=== PATIENT | female | born 1945 | race Caucasian/White ===

== ENCOUNTER → 2016-09-01 | Outpatient (CLI) | payer OTHER ==
[~2016-09-01] MED LIST: ACET-1311 PO; AMIO200T4 PO; AMOX875T PO; AMX500 PO; APIX1TAB3 PO; ASPCH81X PO; ATOR-24 PO; AZITTAB PO; BACITRACIN 50000 UNIT VIAL ONE; BISA10SU5 RE; BUPIVACAINE 0.5 % 5 MG/1 ML MPF 30ML VIAL ONE; CARV12.5 PO; CARV12.52 PO; CHOL200010 PO; CRG625 PO; DIGO0.1216 PO; DXY100 PO; FERR1TAB13 PO; FERR325T51 PO; FLUO20CA35 PO; FRS/40 PO; FRS/80 PO; GABA-112 PO; IMDSR30 PO; INSU1INJ SC; ISOS30TA51 PO; LAMO200T PO; LIDOCAINE HCL 1% 20 ML VIAL ONE; LNX125 PO; LSX40 PO; MAGN400T6 PO; MCTP EXT; MCTP TOP; MELA1TAB5 PO; MELATAB2 PO; METO25TA3 PO; MICO2POW8 TOP; MOML PO; NYST80OI TOP; OXYC-57 PO; PENI-82 PO; PHEN1TAB86 PO; POLY335019 PO; POTA10CA28 PO; POTA10TA30 PO; REPA0.5T PO; REPA1TAB42 PO; REPA1TAB5 PO; SENN-61 PO; SENN-65 PO; SIMV20TA2 PO; TRAZ100T29 PO; [UNRECOGNIZED DRUG - SUPPLY]
--- NOTE | 2016-09-01 10:51 | DIAGNOSTIC IMAGING REPORT ---
CHEST 2 VIEWS ROUTINE CLINICAL HISTORY: R06.00 [id number] COMPARISON STUDY: 06/15/2016 FINDINGS: The heart is mildly enlarged. As a left subclavian pacer/defibrillator present. There is mild pulmonary vascular congestion. There is no lobar consolidation. There is a small right pleural effusion with right basilar atelectasis.[ IMPRESSION: Mild congestive failure/fluid overload. Small right pleural effusion. No evidence of lobar consolidation. Electronically signed by: Tee Ulrich M.D. 09/01/2016 10:49 AM Dictated Date/Time: 09/01/2016 10:48 AM
== END | disposition home or self-care (01) ==
LOC: C.RAD1850 10:25
PROVIDERS: ATTEND Internal Medicine
DX: I25.5 Ischemic cardiomyopathy (principal); R06.01 Orthopnea; J90 Pleural effusion, not elsewhere classified

== ENCOUNTER 2016-09-20 22:59 | Inpatient (IN) | payer OTHER ==
[~2016-09-20] VITALS: Ht 167.6 cm; Wt 108.8 kg
[~2016-09-20 22:59] MED LIST changes: -AMOX875T PO; -AMX500 PO; -ATOR-24 PO; -AZITTAB PO; -BACITRACIN 50000 UNIT VIAL ONE; -BISA10SU5 RE; -BUPIVACAINE 0.5 % 5 MG/1 ML MPF 30ML VIAL ONE; -CARV12.52 PO; -CRG625 PO; -DXY100 PO; -FERR1TAB13 PO; -FLUO20CA35 PO; -FRS/80 PO; -IMDSR30 PO; -INSU1INJ SC; -ISOS30TA51 PO; -LAMO200T PO; -LIDOCAINE HCL 1% 20 ML VIAL ONE; -LNX125 PO; -LSX40 PO; -MCTP EXT; -MCTP TOP; -MELA1TAB5 PO; -METO25TA3 PO; -MICO2POW8 TOP; -NYST80OI TOP; -PHEN1TAB86 PO; -POLY335019 PO; -POTA10CA28 PO; -POTA10TA30 PO; -REPA1TAB42 PO; -REPA1TAB5 PO; -SENN-65 PO; -TRAZ100T29 PO; -[UNRECOGNIZED DRUG - SUPPLY]
[2016-09-20] MEDS ORDERED: ASPIRIN 81 MG CHEW PO STA (23:32)
[2016-09-21 00:15] LABS: BASO % 0.5 %; BASO ABS # 0.04 K/uL (0-0.2); HEMATOCRIT 38.8 % (37-47); IG% 0.2 %; LYMPH % 6.5 %; LYMPH ABS # 0.52 K/uL (1.2-3.4); MEAN CELL VOLUME 94.6 fL (80-100); MEAN CORPUSCULAR HGB CONC 29.6 g/dl (32-36); MEAN PLATELET VOLUME 8.7 fL (7.4-10.4); MONO % 6.8 %; PLATELET COUNT 198 K/uL (130-400); WHITE BLOOD COUNT 8.04 K/uL (4.8-10.8)
[2016-09-21] MEDS ORDERED: FUROSEMIDE 40 MG/4 ML VIAL IV STA (00:21)
[2016-09-21] MEDS ORDERED: CEFTRIAXONE SOD INJ 1 GM ADDVIAL IV STA (00:21)
[2016-09-21 00:26] LABS: INR 1.2 (0.9-1.1); PARTIAL THROMBOPLASTIN RATIO 1.2; PROTHROMBIN TIME (PATIENT) 12.4 SECONDS (9.0-12.0)
[2016-09-21 00:44] LABS: CALCIUM 9.7 mg/dl (8.5-10.1); CREATININE 1.9 mg/dl (0.60-1.20); MAGNESIUM 2.5 mg/dl (1.8-2.4); POTASSIUM 4.4 mmol/L (3.5-5.1)
[2016-09-21 00:46] LABS: ANISOCYTOSIS PRESENT; COMPLETE YES; POLYCHROMASIA 1+
[2016-09-21 00:49] LABS: CKMB/CK RATIO 2.1 (0-3.0)
[2016-09-21] MEDS ORDERED: POLY335019 PO (01:54)
[2016-09-21] MEDS ORDERED: BISA10SU5 RE (01:54)
[2016-09-21] MEDS ORDERED: FRS/80 PO (01:54)
[2016-09-21] MEDS ORDERED: FERR1TAB13 PO (01:54)
[2016-09-21] MEDS ORDERED: REPA1TAB5 PO (01:54)
[2016-09-21] MEDS ORDERED: LNX125 PO (01:54)
[2016-09-21] MEDS ORDERED: MELA1TAB5 PO (01:56)
--- NOTE | 2016-09-21 02:21 | History and Physical ---
History & Physical Date & Time of Service: Sep 21, 2016 at 02:21 . Chief Complaint: Shortness of breath . Primary Care Physician: Lola Jean M.D. . History of Present Illness Source: patient, clinic records, hospital records 70-year-old female followed by Dr. Lola Jean for Internal Medicine. [facility] for lower extremity venous stasis ulcers. Resident at [facility]. History of ischemic heart disease, systolic heart failure, age fibrillation, diabetes, and other problems noted below. Presented to the ED with a 2 day history of increasing shortness of breath. Also notes increasing lower extremity edema. No chest pain. No fever or cough. . Past Medical/Surgical History Chronic and Resolved Medical Problems: (1) Atrial fibrillation Status: Chronic (2) CKD (chronic kidney disease), stage III Status: Chronic (3) Coronary artery disease Status: Chronic (4) DM type 2 (diabetes mellitus, type 2) Status: Chronic (5) History of osteomyelitis Permanent Comment: R third toe Status: Chronic (6) History of uterine cancer Permanent Comment: s/p XRT Status: Chronic (7) HTN (hypertension) Status: Chronic (8) Pacemaker Status: Chronic (9) Systolic CHF, chronic Permanent Comment: LVEF 20-25% Status: Chronic Surgical Problems: (1) History of total bilateral knee replacement Status: Chronic (2) S/P cholecystectomy Status: Chronic (3) Status post placement of cardiac pacemaker Status: Chronic . Social History Smoking Status: Never Smoker Alcohol Use: none Drug Use: none Marital Status: Housing status: other ([facility]) Occupational Status: retired Immunizations History of Influenza Vaccine: Yes History of Tetanus Vaccine?: No History of Pneumococcal: Yes History of Hepatitis B Vaccine: No Allergies Coded Allergies: No Known Allergies (Unverified , 09/21/16) Home Medications Scheduled Amiodarone Hcl (Cordarone), 200 MG PO DAILY Apixaban (Eliquis), 5 MG PO AMPM Aspirin (Aspirin Chewable), 81 MG PO QAM Carvedilol (Coreg), 12.5 MG PO BID Cholecalciferol (Vitamin D), 2,000 INTUNIT PO QAM Digoxin (Digoxin), 0.125 MG PO Q2D Ferrous Sulfate (Kp Ferrous Sulfate), 1 TAB PO BIDM Furosemide (Lasix), 80 MG PO DAILY Gabapentin (Neurontin), 100 MG PO TID Magnesium Oxide (Mag-Ox), 100 MG PO DAILY Repaglinide (Prandin), 0.5 MG PO AC Senna (Senokot), 8.6 MG PO BID Simvastatin (Zocor), 20 MG PO QPM Scheduled PRN Acetaminophen (Tylenol), 650 MG PO Q4 PRN for Pain or Fever Bisacodyl (Bisacodyl), 10 MG RE DAILY PRN for Constipation Magnesium Hydroxide (Milk Of Magnesia), 30 ML PO DIRECTED PRN for constipation Melatonin (Kp Melatonin), 1 TAB PO HS PRN for Sleep Polyethylene Glycol 3350 (Miralax), 17 GM PO DAILY PRN for Constipation Review of Systems Constitutional: No chills, No fever, No weight loss Eyes: No diplopia, No worsening of vision ENT: No hearing loss, No nasal symptoms, No sore throat Respiratory: + shortness of breath, No cough Cardiovascular: + edema, No chest pain, No palpitations Abdomen: + diarrhea, No GI bleeding, No nausea, No pain, No vomiting Musculoskeletal: + joint pain Genitourinary - Female: No dysuria, No hematuria Endocrine: + excessive urination (attributed to diuretics), + fatigue, No excessive thirst Hematologic / Lymphatic: No abnormal bleeding/bruising, No swollen lymph nodes Integumentary: + problem reported (lower extremity skin ulcers), + rash (lower extremities), No new/changing skin lesions Physical Exam Vital Signs Date Time Temp Pulse Resp B/P Pulse Ox O2 Delivery O2 Flow Rate FiO2 09/21/16 01:30 107 20 117/68 97 Nasal Cannula 3.0 09/21/16 00:17 72 20 109/60 97 Nasal Cannula 3.0 09/20/16 23:18 62 09/20/16 23:12 82 Room Air 09/20/16 23:12 36.7 59 28 133/70 96 Room Air 09/20/16 23:10 97 Nasal Cannula 3.0 General Appearance: + mild distress, + obese Head: normocephalic, atraumatic Eyes: normal inspection, PERRL, EOMI, sclerae normal (conjunctivae pink) ENT: normal ENT inspection, hearing grossly normal, pharynx normal, + pertinent finding (edentulous) Neck: supple, no adenopathy, thyroid normal, no JVD, trachea midline Respiratory/Chest: no respiratory distress, no accessory muscle use, + rales ( bibasilar) Cardiovascular: + tachycardia, + systolic murmur (II/ systolic murmur left sternal border), + gallop/S3, + irregularly irregular, + pertinent finding (+ JVD; 3+ pretibial edema) Abdomen/GI: normal bowel sounds, non tender, soft, no organomegaly, no pulsatile mass, + pertinent finding (exam limited due to obesity) Extremities/Musculoskelatal: + pedal edema, + slow capillary refill (2 seconds) 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 (PERRL, EOMI, no facial palsy), no motor/sensory deficits (diffuse mild motor weakness), alert, normal mood/affect , oriented x 3 Skin: warm/dry, + pertinent finding (erythema below the knees consistent with venous stasis; several superficial venous stasis ulcers) Lymphatic: no adenopathy Diagnostics Laboratory Results Results Past 24 Hours Test 09/20/16 23:59 09/21/16 00:01 Range/Units White Blood Count 8.04 4.8-10.8 K/uL Red Blood Count 4.10 4.2-5.4 M/uL Hemoglobin 11.5 12.0-16.0 g/dL Hematocrit 38.8 37-47 % Mean Corpuscular Volume 94.6 80-100 fL Mean Corpuscular Hemoglobin 28.0 25-34 pg Mean Corpuscular Hemoglobin Concent 29.6 32-36 g/dl Platelet Count 198 130-400 K/uL Mean Platelet Volume 8.7 7.4-10.4 fL Neutrophils (%) (Auto) 82.0 % Lymphocytes (%) (Auto) 6.5 % Monocytes (%) (Auto) 6.8 % Eosinophils (%) (Auto) 4.0 % Basophils (%) (Auto) 0.5 % Neutrophils # (Auto) 6.59 1.4-6.5 K/uL Lymphocytes # (Auto) 0.52 1.2-3.4 K/uL Monocytes # (Auto) 0.55 0.11-0.59 K/uL Eosinophils # (Auto) 0.32 0-0.5 K/uL Basophils # (Auto) 0.04 0-0.2 K/uL RDW Standard Deviation 70.0 36.4-46.3 fL RDW Coefficient of Variation 20.5 11.5-14.5 % Immature Granulocyte % (Auto) 0.2 % Immature Granulocyte # (Auto) 0.02 0.00-0.02 K/uL Polychromasia 1+ Anisocytosis PRESENT Prothrombin Time 12.4 9.0-12.0 SECONDS Prothromb Time International Ratio 1.2 0.9-1.1 Activated Partial Thromboplast Time 30.8 21.0-31.0 SECONDS Partial Thromboplastin Ratio 1.2 Sodium Level 142 136-145 mmol/L Potassium Level 4.4 3.5-5.1 mmol/L Chloride Level 101 98-107 mmol/L Carbon Dioxide Level 34 21-32 mmol/L Anion Gap 7.0 3-11 mmol/L Blood Urea Nitrogen 53 7-18 mg/dl Creatinine 1.90 0.60-1.20 mg/dl Est Creatinine Clear Calc Drug Dose 34.1 ml/min Estimated GFR () 30.0 Estimated GFR (Non- 25.9 BUN/Creatinine Ratio 28.0 10-20 Random Glucose 150 70-99 mg/dl Calcium Level 9.7 8.5-10.1 mg/dl Magnesium Level 2.5 1.8-2.4 mg/dl Total Bilirubin 0.5 0.2-1 mg/dl Direct Bilirubin 0.2 0-0.2 mg/dl Aspartate Amino Transf (AST/SGOT) 14 15-37 U/L Alanine Aminotransferase (ALT/SGPT) 17 12-78 U/L Alkaline Phosphatase 54 45-117 U/L Total Creatine Kinase 52 26-192 U/L Creatine Kinase MB 1.1 0.5-3.6 ng/ml Creatine Kinase MB Ratio 2.1 0-3.0 Total Protein 8.4 6.4-8.2 gm/dl Albumin 3.4 3.4-5.0 gm/dl Bedside Troponin I 0.000 0-0.045 ng/ml [id number]-Type Natriuretic Peptide 2119 0-900 pg/ml Diagnostic Radiology Chest x-ray reviewed and demonstrated cardiomegaly, pulmonary edema, left subclavian pacemaker/defibrillator. . EKG EKG performed at 23:10 reviewed and demonstrated atrial fibrillation with a ventricular rate of 60/minute, nonspecific ST/T-wave abnormalities. . Impression Assessment and Plan CHF Acute on chronic left ventricular systolic heart failure. Echocardiogram in the past demonstrated LVEF of 20/25%. No need to repeat echocardiogram at this time since it will not alter management. Change furosemide to intravenous. Continue carvedilol, digoxin. No CRISTIN or ARB due to renal insufficiency. Follow weights, exam, labs, etc. CORONARY ARTERY DISEASE No chest pain. Serum troponin negative. Continue aspirin, carvedilol, statin. ATRIAL FIBRILLATION Rate controlled. Continue carvedilol, digoxin, apixaban. CKD IV Serum creatinine 1.9. Follow closely with intravenous diuretic therapy. DM TYPE II Hold repaglinide. Check Hgb A1C. Insulin coverage PRN. DYSLIPIDEMIA Continue simvastatin. LOWER EXTREMITY ERYTHEMA Favor venous stasis rather than cellulitis. Follow. LOWER EXTREMITY VENOUS STASIS ULCERS Local care. Follow-up with [facility]. LOOSE STOOLS Check stools for C diff. VTE PROPHYLAXIS Apixaban. Ambulate as able. RESUSCITATION STATUS Discussed with patient. She has a living will. She would like resuscitation attempted in the event of a cardiopulmonary arrest if there is a reasonable chance of a meaningful recovery, but does not want prolonged extraordinary measures if prognosis is poor. Therefore, code status = "Level 1" (full resuscitation). DISPOSITION Admit to Telemetry Unit. Expected return to [facility]. Internal Medicine follow-up with Dr. Lola Jean. . VTE Prophylaxis Given or contraindicated: Other Anticoagulation (apixaban)
[2016-09-21] MEDS ORDERED: NITROGLYCERIN 0.4 MG SL PER TAB CHARGE SL PRN (02:30)
--- NOTE | 2016-09-21 02:31 | EMERGENCY ROOM VISIT NOTE ---
History Report prepared by Luis A: Joon Robertson Under the Supervision of: Dr. Gosia Lee M.D. First contact with patient: 23:12 Chief Complaint: SHORTNESS OF BREATH Stated Complaint: SHORT OF BREATH History of Present Illness The patient is a 70 year old female who presents to the Emergency Room with complaints of worsening shortness of breath beginning a few hours ago. She states that her symptoms are worsened with bending over. She also complains of lethargy and increased leg swelling. The patient denies any abdominal pain, diarrhea, vomiting, or chest pain. She does not wear oxygen at home. Per family , the patient was found to have fluid on her lungs a few months ago. He states that the patient had her Lasix dosage increased at that time which improved her symptoms. He states that the patient's current symptoms are extremely similar to when she had the fluid on her lungs. The patient's caregiver notes that the patient has a few diabetic sores on her legs. Source of History: patient, family Onset: A few hours ago Quality: other (shortness of breath) Timing: worsening Modifying Factors (Worsening): other (bending over) Associated Symptoms: No abdominal pain, No chest pain, No diarrhea, No vomiting Note: The patient also complains of lethargy and increased leg swelling. Review of Systems See HPI for pertinent positives & negatives. A total of 10 systems reviewed and were otherwise negative. Past Medical & Surgical Medical Problems: (1) Atrial fibrillation (2) CHF (congestive heart failure) (3) CKD (chronic kidney disease), stage III (4) Coronary artery disease (5) DM type 2 (diabetes mellitus, type 2) (6) History of osteomyelitis (7) History of uterine cancer (8) HTN (hypertension) (9) Pacemaker (10) Systolic CHF, chronic Surgical Problems: (1) History of total bilateral knee replacement (2) S/P cholecystectomy (3) Status post placement of cardiac pacemaker Family History Diabetes mellitus Social History Smoking Status: Never Smoker Drug Use: none Marital Status: Housing Status: other Occupation Status: retired Current/Historical Medications Scheduled Amiodarone Hcl (Cordarone), 200 MG PO DAILY Apixaban (Eliquis), 5 MG PO AMPM Aspirin (Aspirin Chewable), 81 MG PO QAM Carvedilol (Coreg), 12.5 MG PO BID Cholecalciferol (Vitamin D), 2,000 INTUNIT PO QAM Digoxin (Digoxin), 0.125 MG PO Q2D Ferrous Sulfate ( Ferrous Sulfate), 1 TAB PO BIDM Furosemide (Lasix), 80 MG PO DAILY Gabapentin (Neurontin), 100 MG PO TID Magnesium Oxide (Mag-Ox), 100 MG PO DAILY Repaglinide (Prandin), 0.5 MG PO AC Senna (Senokot), 8.6 MG PO BID Simvastatin (Zocor), 20 MG PO QPM Scheduled PRN Acetaminophen (Tylenol), 650 MG PO Q4 PRN for Pain or Fever Bisacodyl (Bisacodyl), 10 MG RE DAILY PRN for Constipation Magnesium Hydroxide (Milk Of Magnesia), 30 ML PO DIRECTED PRN for constipation Melatonin ( Melatonin), 1 TAB PO HS PRN for Sleep Polyethylene Glycol 3350 (Miralax), 17 GM PO DAILY PRN for Constipation Allergies Coded Allergies: No Known Allergies (Unverified , 09/21/16) Physical Exam Vital Signs Date Time Temp Pulse Resp B/P Pulse Ox O2 Delivery O2 Flow Rate FiO2 09/21/16 01:30 107 20 117/68 97 Nasal Cannula 3.0 09/21/16 00:17 72 20 109/60 97 Nasal Cannula 3.0 09/20/16 23:18 62 09/20/16 23:12 82 Room Air 09/20/16 23:12 36.7 59 28 133/70 96 Room Air 09/20/16 23:10 97 Nasal Cannula 3.0 Physical Exam Vital signs reviewed. General: Obese female, disheveled, edentulous. HEENT: No scleral icterus, PERRLA, neck supple. Atraumatic. Cardiovascular: Irregular rhythm with rate controlled. Pulmonary: Diminished breath sounds bilaterally, normal work of breathing. Abdomen: Soft, nontender, nondistended, positive bowel sounds. Musculoskeletal: Atraumatic, no peripheral edema. Neurologic: Patient awake alert and oriented x 3, full strength in all 4 extremities. Cranial nerves 2 through 12 grossly intact. Skin: Warm, dry. Bilateral lower extremity edema with erythema from the shins with a superficial open area of approximately 6 cm with serious drainage on the left lateral calf. Medical Decision & Procedures ER Provider Diagnostic Interpretation: One View Chest X-ray interpreted by me: pacemaker in place. Cardiomegaly. Pulmonary vascular congestion. Likely right pleural effusion. Laboratory Results 09/20/16 23:59 Red Blood Count 4.10, Mean Corpuscular Volume 94.6, Mean Corpuscular Hemoglobin 28.0, Mean Corpuscular Hemoglobin Concent 29.6, Mean Platelet Volume 8.7, Neutrophils (%) (Auto) 82.0, Lymphocytes (%) (Auto) 6.5, Monocytes (%) (Auto) 6.8, Eosinophils (%) (Auto) 4.0, Basophils (%) (Auto) 0.5, Neutrophils # (Auto) 6.59, Lymphocytes # (Auto) 0.52, Monocytes # (Auto) 0.55, Eosinophils # (Auto) 0.32, Basophils # (Auto) 0.04 Test 09/20/16 23:59 09/21/16 00:01 White Blood Count 8.04 K/uL (4.8-10.8) Red Blood Count 4.10 M/uL (4.2-5.4) Hemoglobin 11.5 g/dL (12.0-16.0) Hematocrit 38.8 % (37-47) Mean Corpuscular Volume 94.6 fL (80-100) Mean Corpuscular Hemoglobin 28.0 pg (25-34) Mean Corpuscular Hemoglobin Concent 29.6 g/dl (32-36) Platelet Count 198 K/uL (130-400) Mean Platelet Volume 8.7 fL (7.4-10.4) Neutrophils (%) (Auto) 82.0 % Lymphocytes (%) (Auto) 6.5 % Monocytes (%) (Auto) 6.8 % Eosinophils (%) (Auto) 4.0 % Basophils (%) (Auto) 0.5 % Neutrophils # (Auto) 6.59 K/uL (1.4-6.5) Lymphocytes # (Auto) 0.52 K/uL (1.2-3.4) Monocytes # (Auto) 0.55 K/uL (0.11-0.59) Eosinophils # (Auto) 0.32 K/uL (0-0.5) Basophils # (Auto) 0.04 K/uL (0-0.2) RDW Standard Deviation 70.0 fL (36.4-46.3) RDW Coefficient of Variation 20.5 % (11.5-14.5) Immature Granulocyte % (Auto) 0.2 % Immature Granulocyte # (Auto) 0.02 K/uL (0.00-0.02) Polychromasia 1+ Anisocytosis PRESENT Prothrombin Time 12.4 SECONDS (9.0-12.0) Prothromb Time International Ratio 1.2 (0.9-1.1) Activated Partial Thromboplast Time 30.8 SECONDS (21.0-31.0) Partial Thromboplastin Ratio 1.2 Magnesium Level 2.5 mg/dl (1.8-2.4) Total Bilirubin 0.5 mg/dl (0.2-1) Direct Bilirubin 0.2 mg/dl (0-0.2) Aspartate Amino Transf (AST/SGOT) 14 U/L (15-37) Alanine Aminotransferase (ALT/SGPT) 17 U/L (12-78) Alkaline Phosphatase 54 U/L (45-117) Total Creatine Kinase 52 U/L (26-192) Creatine Kinase MB 1.1 ng/ml (0.5-3.6) Creatine Kinase MB Ratio 2.1 (0-3.0) Total Protein 8.4 gm/dl (6.4-8.2) Albumin 3.4 gm/dl (3.4-5.0) Bedside Troponin I 0.000 ng/ml (0-0.045) ZL-Nck-R-Type Natriuretic Peptide 2119 pg/ml (0-900) Laboratory results per my review. Medications Administered Medications (Trade) Dose Ordered Sig/Jose Route Start Time Stop Time Status Last Admin Dose Admin Aspirin (Aspirin Chew) 324 mg NOW STAT PO 09/20/16 23:32 09/20/16 23:34 DC 09/21/16 00:17 324 MG Furosemide (Lasix Inj) 40 mg NOW STAT IV 09/21/16 00:21 09/21/16 00:23 DC 09/21/16 01:05 40 MG Ceftriaxone Sodium (Rocephin Inj) 1 gm NOW STAT IV 09/21/16 00:21 09/21/16 00:23 DC 09/21/16 01:06 1 GM ECG Indication: SOB/dyspnea Rate (beats per minute): 64 Rhythm: atrial fibrillation Findings: LBBB (incomplete), no acute ischemic change, other (Repolarization abnormality in the lateral leads) ED Course 2330: Past medical records reviewed. The patient was evaluated in room B2. A complete history and physical examination was performed. 2332: Ordered Aspirin 324 mg PO. 0021: Ordered Rocephin Inj 1 gm IV, Lasix Inj 40 mg IV. 0206: I reassessed the patient. She is resting comfortably. She informed me that she does not wear oxygen at home. 0225: Upon reevaluation, the patient is resting comfortably. I discussed laboratory and radiographic results with her. She verbalized agreement of the treatment plan. I spoke with Dr. Walker of the [facility] Hospitalist Service. The patient will be evaluated for further management and care. Medical Decision Differential diagnosis: Etiologies such as infections, reactive airway disease, pneumonia, pneumothorax , COPD, CHF, cardiac ischemia, pulmonary embolism, musculoskeletal, gastrointestinal, cellulitis, abscess, MRSA infection, DVT, necrotizing fasciitis, dermatitis, drug eruption, as well as others were entertained. This patient was evaluated and appeared to be in no significant distress. IV access was obtained and laboratory work was drawn. The patient was placed on the director of procurement and found to be in a rate controlled atrial fibrillation. The patient was given 325 mg of aspirin to chew. Chest x-ray is concerning for a pulmonary edema with pleural effusion. Patient appears to have bilateral lower extremity cellulitis likely stemming from chronic ulcerations. The patient was medicated with 40 mg of IV Lasix as well as 1 g of IV ceftriaxone for which her previous cultures have grown sensitive. Patient's case was discussed with the hospitalist service. She'll be evaluated for further management. Consults Time Called: [phone] Consulting Physician: Dr. Walker -[facility] Returned Call: [phone] I reviewed the patient's case with Dr. Walker. He will evaluate the patient for further management. Impression Primary Impression: CHF (congestive heart failure) Additional Impression: Bilateral lower leg cellulitis Scribe Attestation The scribe's documentation has been prepared under my direction and personally reviewed by me in its entirety. I confirm that the note above accurately reflects all work, treatment, procedures, and medical decision making performed by me. Departure Information Dispostion Being Evaluated By Hospitalist Referrals Lola Jean M.D. (PCP) Patient Instructions My [facility] Problem Qualifiers Primary Impression: CHF (congestive heart failure) Congestive heart failure type: unspecified congestive heart failure type Congestive heart failure chronicity: acute Qualified Codes: I50.9 - Heart failure, unspecified
[2016-09-21 04:00] VITALS: BP 121/60; PULSE 61; TEMP 36.9; O2SAT 91; Ht 167.6 cm; Wt 108.8 kg
[2016-09-21] MEDS ORDERED: ACETAMINOPHEN 325 MG TAB PO PRN (04:45)
[2016-09-21] MEDS: ACETAMINOPHEN 325 MG TAB PO PRN ×2 (06:19→11:10)
--- NOTE | 2016-09-21 07:25 | DIAGNOSTIC IMAGING REPORT ---
CHEST ONE VIEW PORTABLE CLINICAL HISTORY: Congestive heart failure. Shortness of breath. COMPARISON STUDY: Chest radiograph September 01, 2016. FINDINGS: A left subclavian pacer/AICD is in place. Moderate cardiomegaly is unchanged. There is no pneumothorax. There is a trace right pleural effusion. There is pulmonary vascular congestion with suspected mild pulmonary edema. Hazy right basilar opacity is present. There are old left-sided rib deformities. IMPRESSION: 1. Mild pulmonary edema. 2. Trace right pleural effusion. 3. Right basilar opacity which may reflect atelectasis. Electronically signed by: Tyler Riddle M.D. 09/21/2016 7:24 AM Dictated Date/Time: 09/21/2016 7:23 AM
[2016-09-21 07:37] VITALS: BP 96/58; PULSE 81; TEMP 36.8; O2SAT 96
[2016-09-21 07:38] LABS: BUN/CREATININE RATIO 30.4 (10-20); CALCIUM 9.6 mg/dl (8.5-10.1); CREATININE 1.7 mg/dl (0.60-1.20)
[2016-09-21] MEDS: CARVEDILOL 12.5 MG TAB PO SCH ×2 (09:00→21:15)
[2016-09-21] MEDS: FUROSEMIDE INJ 80 MG in SYRINGE 0 ML IV SCH ×2 (09:15→16:00)
[2016-09-21] MEDS ORDERED: NURSING DECISION MEDICATION ORDER SCH (09:15)
[2016-09-21] MEDS: AMIODARONE 200 MG TAB PO SCH (09:23)
[2016-09-21] MEDS: APIXABAN 2.5 MG TAB PO SCH ×2 (09:24→21:16)
[2016-09-21] MEDS: ASPIRIN 81 MG ECTAB PO SCH (09:24)
[2016-09-21] MEDS: MAGNESIUM OXIDE 400 MG TAB PO SCH (09:24)
[2016-09-21] MEDS: SENNA 8.6 MG TAB PO SCH ×2 (09:25→21:17)
[2016-09-21] MEDS: GABAPENTIN 100 MG CAP PO SCH ×3 (09:25→21:16)
[2016-09-21 11:35] VITALS: BP 104/65; PULSE 113; TEMP 36.7; O2SAT 95
[2016-09-21 14:40] VITALS: BP 117/61; PULSE 71; TEMP 36.9; O2SAT 94
--- NOTE | 2016-09-21 15:36 | Progress Note ---
Internal Med Progress Note Date of Service: Sep 21, 2016. Provider Documentation: SUBJECTIVE: Patient is seen and examined at bedside. Patient states her SOB is improving. Denies any chest pain, palpitations, dizziness, nausea, abd pain. Diarrhea resolved. OBJECTIVE: Vital Signs-as noted below Physical Exam: General Appearance:Obese, no apparent distress Head: normocephalic, Atraumatic Eyes: normal inspection, EOMI, PERRL Neck: supple, Trachea midline Respiratory/Chest: Decreased breath sounds b/l, CTA, No accessory muscle use Cardiovascular: Irregularly Irregular, + systolic murmur Abdomen/GI:Soft, Non tender, Bowel sounds present, No guarding/rigidity/ organomegaly Extremities/Musculoskelatal:B/L LE edema, erythema, in bandage Neurologic/Psych:AAOX3, grossly no focal neurological deficits Skin: B/L LE erythema, chronic venous stasis, several superficial venous stasis ulcers in bandage Lab data as noted below. ASSESSMENT & PLAN: ACUTE ON CHRONIC SYSTOLIC CHF Acute on chronic left ventricular systolic heart failure. Last Echo: LVEF: 20-25%. S/P single chamber defibrillator/pacemaker Continue IV lasix Continue carvedilol, digoxin No CRISTIN or ARB due to renal insufficiency. Daily weight, I/Os Monitor electrolytes Low salt diet Oxygen support per protocol CORONARY ARTERY DISEASE Denies chest pain, Troponin negative Continue aspirin, carvedilol, statin ATRIAL FIBRILLATION Rate controlled Continue carvedilol, digoxin, apixaban. FU digoxin levels:pending CKD IV Serum creatinine 1.7 today Monitor renal function as on IV diuretics DM TYPE II Hold repaglinide Check Hgb A1C: pending ISS, accu checks DYSLIPIDEMIA Continue simvastatin LOWER EXTREMITY ERYTHEMA Likely secondary to venous stasis Continue to monitor LOWER EXTREMITY VENOUS STASIS ULCERS Continue wound care Wound Culture from 09/10/16:GROUP B BETA STREP Continue IV ceftriaxone Will repeat wound cultures Needs follow-up with Wound Clinic LOOSE STOOLS: Resolved Check stools for C diff if reoccurs DVT PX: On Apixaban. Ambulate as able. RESUSCITATION STATUS Discussed with patient. She has a living will. She would like resuscitation attempted in the event of a cardiopulmonary arrest if there is a reasonable chance of a meaningful recovery, but does not want prolonged extraordinary measures if prognosis is poor. Therefore, code status = "Level 1" (full resuscitation). DISPOSITION Continue monitoring in Tele. Will plan to DC to [facility] when stable Follow up with PCP Dr. Lola Jean. Vital Signs: Date Time Temp Pulse Resp B/P Pulse Ox O2 Delivery O2 Flow Rate FiO2 09/21/16 14:40 36.9 71 20 117/61 94 09/21/16 12:00 Nasal Cannula 3.0 09/21/16 11:35 36.7 113 20 104/65 95 09/21/16 08:00 Nasal Cannula 3.0 09/21/16 07:37 36.8 81 18 96/58 96 Nasal Cannula 2.0 09/21/16 04:00 36.9 61 18 121/60 91 Nasal Cannula 3.0 09/21/16 03:37 82 16 127/77 98 09/21/16 03:16 73 09/21/16 03:00 88 24 132/78 98 Nasal Cannula 3.0 09/21/16 01:30 107 20 117/68 97 Nasal Cannula 3.0 09/21/16 00:17 72 20 109/60 97 Nasal Cannula 3.0 09/20/16 23:18 62 09/20/16 23:12 82 Room Air 09/20/16 23:12 36.7 59 28 133/70 96 Room Air 09/20/16 23:10 97 Nasal Cannula 3.0 Lab Results: Results Past 24 Hours Test 09/20/16 23:59 09/21/16 00:01 09/21/16 06:00 Range/Units White Blood Count 8.04 4.8-10.8 K/uL Red Blood Count 4.10 4.2-5.4 M/uL Hemoglobin 11.5 12.0-16.0 g/dL Hematocrit 38.8 37-47 % Mean Corpuscular Volume 94.6 80-100 fL Mean Corpuscular Hemoglobin 28.0 25-34 pg Mean Corpuscular Hemoglobin Concent 29.6 32-36 g/dl Platelet Count 198 130-400 K/uL Mean Platelet Volume 8.7 7.4-10.4 fL Neutrophils (%) (Auto) 82.0 % Lymphocytes (%) (Auto) 6.5 % Monocytes (%) (Auto) 6.8 % Eosinophils (%) (Auto) 4.0 % Basophils (%) (Auto) 0.5 % Neutrophils # (Auto) 6.59 1.4-6.5 K/uL Lymphocytes # (Auto) 0.52 1.2-3.4 K/uL Monocytes # (Auto) 0.55 0.11-0.59 K/uL Eosinophils # (Auto) 0.32 0-0.5 K/uL Basophils # (Auto) 0.04 0-0.2 K/uL RDW Standard Deviation 70.0 36.4-46.3 fL RDW Coefficient of Variation 20.5 11.5-14.5 % Immature Granulocyte % (Auto) 0.2 % Immature Granulocyte # (Auto) 0.02 0.00-0.02 K/uL Polychromasia 1+ Anisocytosis PRESENT Prothrombin Time 12.4 9.0-12.0 SECONDS Prothromb Time International Ratio 1.2 0.9-1.1 Activated Partial Thromboplast Time 30.8 21.0-31.0 SECONDS Partial Thromboplastin Ratio 1.2 Sodium Level 142 143 136-145 mmol/L Potassium Level 4.4 4.0 3.5-5.1 mmol/L Chloride Level 101 101 98-107 mmol/L Carbon Dioxide Level 34 35 21-32 mmol/L Anion Gap 7.0 7.0 3-11 mmol/L Blood Urea Nitrogen 53 52 7-18 mg/dl Creatinine 1.90 1.70 0.60-1.20 mg/dl Est Creatinine Clear Calc Drug Dose 34.1 37.7 ml/min Estimated GFR () 30.0 34.3 Estimated GFR (Non- 25.9 29.6 BUN/Creatinine Ratio 28.0 30.4 10-20 Random Glucose 150 159 70-99 mg/dl Calcium Level 9.7 9.6 8.5-10.1 mg/dl Magnesium Level 2.5 1.8-2.4 mg/dl Total Bilirubin 0.5 0.2-1 mg/dl Direct Bilirubin 0.2 0-0.2 mg/dl Aspartate Amino Transf (AST/SGOT) 14 15-37 U/L Alanine Aminotransferase (ALT/SGPT) 17 12-78 U/L Alkaline Phosphatase 54 45-117 U/L Total Creatine Kinase 52 26-192 U/L Creatine Kinase MB 1.1 0.5-3.6 ng/ml Creatine Kinase MB Ratio 2.1 0-3.0 Total Protein 8.4 6.4-8.2 gm/dl Albumin 3.4 3.4-5.0 gm/dl Bedside Troponin I 0.000 0-0.045 ng/ml [id number]-Bfn-L-Type Natriuretic Peptide 2119 0-900 pg/ml Microbiology Results 09/21/16 MRSA DNA Surveillance Screen - Final, Complete Specimen Negative for MRSA by DNA Probe
[2016-09-21] MEDS: MICONAZOLE NITRATE POWDER 43 GM EXT PRN (16:03)
[2016-09-21 20:05] VITALS: BP 114/71; PULSE 83; TEMP 36.6; O2SAT 95
[2016-09-21] MEDS: SIMVASTATIN 20 MG TAB PO SCH (21:17)
[2016-09-21 23:35] VITALS: BP 113/74; PULSE 103; TEMP 36.8; O2SAT 94
[2016-09-22 02:40] VITALS: BP 110/53; PULSE 70; TEMP 36.6; O2SAT 95
[2016-09-22] MEDS: ACETAMINOPHEN 325 MG TAB PO PRN ×2 (03:07→10:54)
[2016-09-22 07:22] LABS: ESTIMATED AVERAGE GLUCOSE 174 mg/dl; HA1C FLAG Normal (Normal)
[2016-09-22 07:32] LABS: BUN/CREATININE RATIO 27.8 (10-20); CALCIUM 9.2 mg/dl (8.5-10.1); CREATININE 2.3 mg/dl (0.60-1.20)
[2016-09-22 07:52] VITALS: BP 114/58; PULSE 54; TEMP 36.7; O2SAT 95
[2016-09-22] MEDS: CEFTRIAXONE SOD INJ 1 GM in DEXTROSE 5% ADD-VANTAGE 50ML 50 ML IV SCH (09:18)
[2016-09-22] MEDS: FUROSEMIDE INJ 80 MG in SYRINGE 0 ML IV SCH (09:19)
[2016-09-22] MEDS: AMIODARONE 200 MG TAB PO SCH (09:19)
[2016-09-22] MEDS: CARVEDILOL 12.5 MG TAB PO SCH (09:20)
[2016-09-22] MEDS: APIXABAN 2.5 MG TAB PO SCH (09:20)
[2016-09-22] MEDS: ASPIRIN 81 MG ECTAB PO SCH (09:20)
[2016-09-22] MEDS: MAGNESIUM OXIDE 400 MG TAB PO SCH (09:21)
[2016-09-22] MEDS: GABAPENTIN 100 MG CAP PO SCH ×2 (09:22→13:11)
[2016-09-22] MEDS: SENNA 8.6 MG TAB PO SCH (09:22)
--- NOTE | 2016-09-22 11:05 | Clinical Documentation Query ---
CLINICAL DOCUMENTATION QUERY Dr. RUCKER, In your clinical opinion is this patient being managed for: (X ) Likely Acute kidney failure ( ) Other explanation of clinical findings (Please Explain) ( ) Unable to determine (Please Define) ( ) Need to Discuss ( ) Not Agree The medical record reflects the following clinical findings, treatment, and risk factors. Clinical Indicators: 70 yo female presenting with acute on chronic systolic CHF. Initial Cr 1.90, which trended down to 1.7 then increased to Cr 2.30 Treatment: serial PRP's, daily wts, I/O, unable to administer IV fluids due to acute systolic CHF Risk Factors: age, IV lasix to treat acute CHF, HTN, DM Please clarify and document your clinical opinion in the progress notes and discharge summary. Terms such as "probable", "suspected", "likely", "questionable", "possible", or "still to be ruled out" are acceptable. IF IN AGREEMENT, YOU MUST DOCUMENT ABOVE DIAGNOSTIC STATEMENT IN DAILY PROGRESS NOTES AND DISCHARGE SUMMARY. This document is not part of the patient's record. Thank You, Miley Steven, JENNI [phone]
[2016-09-22 11:53] VITALS: BP 112/60; PULSE 97; TEMP 36.4; O2SAT 95
[2016-09-22] MEDS ORDERED: GLUCOSE 10 TABS/TUBE PO PRN (15:00)
[2016-09-22] MEDS ORDERED: DEXTROSE 50% 50 ML SYR IV PRN (15:00)
[2016-09-22] MEDS ORDERED: GLUCAGON FOR INJ 1 MG VIAL SQ PRN (15:00)
[2016-09-22] MEDS ORDERED: GLUCOSE 40% GEL 15 GM TUBE PO PRN (15:00)
[2016-09-22 15:05] VITALS: BP 100/55; PULSE 99; TEMP 36.5; O2SAT 95
--- NOTE | 2016-09-22 15:06 | Progress Note ---
Internal Med Progress Note Date of Service: Sep 22, 2016. Provider Documentation: SUBJECTIVE: Patient is seen and examined at bedside. Patient states SOB is much improved. Also states having some leg pain on leg elevation. Denies any chest pain, palpitations, dizziness, nausea, abd pain. OBJECTIVE: Vital Signs-as noted below Physical Exam: General Appearance:Obese, no apparent distress Head: normocephalic, Atraumatic Eyes: normal inspection, EOMI, PERRL Neck: supple, Trachea midline Respiratory/Chest: Decreased breath sounds b/l, CTA, No accessory muscle use Cardiovascular: Irregularly Irregular, + systolic murmur Abdomen/GI:Soft, Non tender, Bowel sounds present, No guarding/rigidity/ organomegaly Extremities/Musculoskelatal:B/L LE edema, erythema, in bandage Neurologic/Psych:AAOX3, grossly no focal neurological deficits Skin: B/L LE erythema, chronic venous stasis, several superficial venous stasis ulcers in bandage Lab data as noted below. ASSESSMENT & PLAN: ACUTE ON CHRONIC SYSTOLIC CHF Acute on chronic left ventricular systolic heart failure. Last Echo: LVEF: 20-25%. S/P single chamber defibrillator/pacemaker Continue carvedilol, digoxin No CRISTIN or ARB due to renal insufficiency. Daily weight, I/Os Monitor electrolytes Low salt diet Oxygen support per protocol Hold Lasix for tonight as Cr levels worsening. Weight already down by 3kg Titrate off oxygen as able CORONARY ARTERY DISEASE Denies chest pain, Troponin negative Continue aspirin, carvedilol, statin ATRIAL FIBRILLATION Rate controlled Continue carvedilol, digoxin, apixaban. Digoxin levels:wnl JASON on CKD IV Serum creatinine 2.3 today Secondary to IV diuretics Monitor renal function Avoid nephrotoxic agents DM TYPE II Hold repaglinide Check Hgb A1C: 7.7 Start ISS, accu checks DYSLIPIDEMIA Continue simvastatin LOWER EXTREMITY ERYTHEMA Likely secondary to venous stasis Continue to monitor LOWER EXTREMITY VENOUS STASIS ULCERS Continue wound care Wound Culture from 09/10/16:GROUP B BETA STREP Continue IV ceftriaxone Will repeat wound cultures:pending Needs follow-up with Wound Clinic LOOSE STOOLS: Resolved Check stools for C diff if reoccurs DVT PX: On Apixaban. Ambulate as able. RESUSCITATION STATUS Full code DISPOSITION Continue monitoring in Tele. Will plan to DC to [place] [facility] when stable Follow up with PCP Dr. Lola Jean. Vital Signs: Date Time Temp Pulse Resp B/P Pulse Ox O2 Delivery O2 Flow Rate FiO2 09/22/16 17:10 85 09/22/16 15:05 36.5 99 20 100/55 95 Nasal Cannula 2.0 09/22/16 12:00 Room Air 09/22/16 11:53 36.4 97 20 112/60 95 Nasal Cannula 2.0 09/22/16 08:00 Room Air 09/22/16 07:52 36.7 54 22 114/58 95 Nasal Cannula 2.0 09/22/16 04:05 Nasal Cannula 3.0 09/22/16 02:40 36.6 70 20 110/53 95 Nasal Cannula 2.0 09/22/16 00:05 Nasal Cannula 3.0 09/21/16 23:35 36.8 103 20 113/74 94 Nasal Cannula 2.0 09/21/16 20:05 36.6 83 18 114/71 95 2.0 09/21/16 20:00 Nasal Cannula 3.0 Lab Results: Results Past 24 Hours Test 09/22/16 06:10 09/22/16 07:43 09/22/16 11:43 09/22/16 16:31 Range/Units Sodium Level 143 136-145 mmol/L Potassium Level 4.0 3.5-5.1 mmol/L Chloride Level 99 98-107 mmol/L Carbon Dioxide Level 36 21-32 mmol/L Anion Gap 8.0 3-11 mmol/L Blood Urea Nitrogen 64 7-18 mg/dl Creatinine 2.30 0.60-1.20 mg/dl Est Creatinine Clear Calc Drug Dose 27.7 ml/min Estimated GFR () 23.8 Estimated GFR (Non- 20.5 BUN/Creatinine Ratio 27.8 10-20 Random Glucose 148 70-99 mg/dl Estimated Average Glucose 174 mg/dl Hemoglobin A1c 7.7 4.5-5.6 % Calcium Level 9.2 8.5-10.1 mg/dl Digoxin Level 0.9 0.8-2.0 ng/ml Bedside Glucose 148 242 213 70-90 mg/dl
[2016-09-22] MEDS ORDERED: PHARMACY GLYCEMIC MGMT CONSULT PRN (15:08)
--- NOTE | 2016-09-22 15:37 | Pharmacy Progress Note ---
Glycemic Control Intl Consult Date of Service Sep 22, 2016. Scope Glycemic Pharmacist consulted by Dr Fitch on 09/22/16 for glycemic control and to write orders per [facility] inpatient glycemic control protocol Objective Weight (Kilograms): 109.400 Accuchecks BSG (last 24hrs): Test 09/22/16 06:10 09/22/16 07:43 09/22/16 11:43 Random Glucose 148 mg/dl (70-99) Bedside Glucose 148 mg/dl (70-90) 242 mg/dl (70-90) Laboratory Data (last 24hrs) Test 09/22/16 06:10 Anion Gap 8.0 mmol/L BUN/Creatinine Ratio 27.8 Blood Urea Nitrogen 64 mg/dl Creatinine 2.30 mg/dl Hemoglobin A1c 7.7 % Potassium Level 4.0 mmol/L Sodium Level 143 mmol/L HbA1c Test 09/22/16 06:10 Hemoglobin A1c 7.7 % (4.5-5.6) H Recent Pertinent Medications Outpatient Anti-diabetic Regimen: * Prandin 0.5mg PO AC The patient is currently receiving: * Basal insulin: None * Correctional Insulin: Novolog Correction per scale ACHS Goal Range: Low 120 mg/dL - High 140 mg/dL Correction Factor: 40 mg/dL/unit * Prandial insulin: Per carb ratio of 1 unit per 13 grams CHO consumed * Oral Agents: On hold for admission Risk Factors for Insulin Resistance: * Infection * Diet Assessment & Plan ASSESSMENT: * 70yo T2DM female with adequate glycemic control as an outpatient per recent A1c * Reasonable for patient to resume previous outpatient regimen at discharge. * Pt is maintained on oral antidiabetic agents as an outpatient * Oral agents are not recommended for inpatient use d/t drug interactions, changing PO intake, and difficulty titrating for acute hyper/hypoglycemia. ADA recommends re-initiating outpatient oral agents 1-2 days prior to discharge if/ when appropriate if they were held on admission. * Will hold oral agents for admission and utilize SQ basal bolus insulin regimen which is the recommended regimen for inpatient glycemic control. * Will initiate weight based/minimal stress insulin dosing for insulin anish patient and titrate based on BSG trends. * Will consider basal insulin for sustained hyperglycemia (BSG > 180mg/dl) despite bolus insulin orders. Basal insulin may not be needed since pt is adequately controlled on prandin as an outpatient which is mainly for post- prandial hyperglycemia. * ADA & AACE recommend a goal blood sugar range 140-180 mg/dl for the majority of critically ill & non-critically ill patients. However, more stringent targets may be selected in individual cases. Will utilize more stringent goal of 120-140mg/dl based on patient age, comorbidities, and tight glycemic control at baseline. PLAN FOR INPATIENT GLYCEMIC CONTROL: * Hold outpatient oral diabetes medications * NovoLog per scale ACHS or Q6hrs while NPO * Goal Range: Low 120 mg/dL - High 140 mg/dL * Correction Factor: 40 mg/dL/unit * Nutritional / Prandial insulin per carb ratio of 1 unit per 13 grams CHO consumed * Added A1c to discharge instructions to be communicated to PCP * Discussed this plan with hospitalist. Pharmacy will sign off of glycemic consult after 24hrs if hyperglycemia is adequately controlled with above orders/ minimal changes needed. * Please note that the plan above was derived based on current level of insulin resistance and hospital stress. These recommendations are appropriate for inpatient admission only. Plan of care upon discharge will need to be reassessed to avoid potential outpatient hypo/hyperglycemia. Thank you.
[2016-09-22] MEDS: DIGOXIN 0.125 MG TAB PO SCH (17:10)
[2016-09-22] MEDS: INSULIN ASPART 100 UNITS/ML 3 ML PEN SC SCH (17:11)
[2016-09-22 19:52] VITALS: BP 95/67; PULSE 87; TEMP 36.7; O2SAT 98
[2016-09-23] VITALS (8 sets, daily range): BP systolic 98–119; BP diastolic 52–71; PULSE 66–105; TEMP 36.2–36.6; O2SAT 94–100
[2016-09-23] MEDS: SIMVASTATIN 20 MG TAB PO SCH ×2 (00:59→20:38)
[2016-09-23] MEDS: CARVEDILOL 12.5 MG TAB PO SCH ×3 (00:59→20:38)
[2016-09-23] MEDS: SENNA 8.6 MG TAB PO SCH ×3 (00:59→20:38)
[2016-09-23] MEDS: GABAPENTIN 100 MG CAP PO SCH ×4 (01:00→20:38)
[2016-09-23] MEDS: APIXABAN 2.5 MG TAB PO SCH ×3 (01:00→20:38)
[2016-09-23] MEDS: INSULIN ASPART 100 UNITS/ML 3 ML PEN SC SCH ×5 (01:12→20:42)
[2016-09-23] MEDS: ACETAMINOPHEN 325 MG TAB PO PRN (06:04)
[2016-09-23 06:36] LABS: CALCIUM 8.9 mg/dl (8.5-10.1); CREATININE 1.9 mg/dl (0.60-1.20)
[2016-09-23 07:33] LABS: ANISOCYTOSIS PRESENT; BASO % 0.3 %; BASO ABS # 0.02 K/uL (0-0.2); COMPLETE YES; EOS % 4.2 %; HEMATOCRIT 37.7 % (37-47); IG% 0.2 %; LYMPH % 8.6 %; LYMPH ABS # 0.55 K/uL (1.2-3.4); MEAN CELL VOLUME 96.4 fL (80-100); MEAN CORPUSCULAR HEMOGLOBIN 27.9 pg (25-34); MEAN CORPUSCULAR HGB CONC 28.9 g/dl (32-36); MEAN PLATELET VOLUME 8.6 fL (7.4-10.4); MONO % 7.7 %; PLATELET COUNT 187 K/uL (130-400); POLYCHROMASIA 1+; RED BLOOD COUNT 3.91 M/uL (4.2-5.4); WHITE BLOOD COUNT 6.39 K/uL (4.8-10.8)
[2016-09-23] MEDS: ASPIRIN 81 MG ECTAB PO SCH (07:42)
[2016-09-23] MEDS: MAGNESIUM OXIDE 400 MG TAB PO SCH (07:43)
[2016-09-23] MEDS: AMIODARONE 200 MG TAB PO SCH (07:43)
[2016-09-23] MEDS: CEFTRIAXONE SOD INJ 1 GM in DEXTROSE 5% ADD-VANTAGE 50ML 50 ML IV SCH (07:44)
[2016-09-23] MEDS: FUROSEMIDE INJ 40 MG in SYRINGE 0 ML IV SCH ×2 (08:26→17:41)
[2016-09-23] MEDS ORDERED: TRAMADOL HCL 50 MG TAB PO PRN (09:00)
[2016-09-23] MEDS ORDERED: TRAMADOL HCL 50 MG TAB ONE (09:03)
[2016-09-23] MEDS ORDERED: MoRPHine SULFATE 2 MG/ML CARP IV PRN (10:00)
[2016-09-23] MEDS ORDERED: MoRPHine SULFATE 2 MG/ML CARP ONE (10:05)
--- NOTE | 2016-09-23 12:04 | Pharmacy Progress Note ---
Glycemic Control: Progress Nt Date of Service Sep 23, 2016. Scope Glycemic Pharmacist consulted by Dr Fitch on 09/22/16 for glycemic control and to write orders per [facility] inpatient glycemic control protocol. Objective Accuchecks BSG (last 24hrs): Test 09/22/16 16:31 09/22/16 20:49 09/23/16 05:30 09/23/16 07:38 Bedside Glucose 213 mg/dl (70-90) 222 mg/dl (70-90) 174 mg/dl (70-90) Random Glucose 148 mg/dl (70-99) Test 09/23/16 11:32 Bedside Glucose 217 mg/dl (70-90) Laboratory Data (last 24hrs) Test 09/23/16 05:30 Anion Gap 3.0 mmol/L BUN/Creatinine Ratio 29.0 Blood Urea Nitrogen 55 mg/dl Creatinine 1.90 mg/dl Potassium Level 4.0 mmol/L Sodium Level 142 mmol/L White Blood Count 6.39 K/uL Red Blood Count 3.91 M/uL Hemoglobin 10.9 g/dL Hematocrit 37.7 % Mean Corpuscular Volume 96.4 fL Mean Corpuscular Hemoglobin 27.9 pg Mean Corpuscular Hemoglobin Concent 28.9 g/dl Platelet Count 187 K/uL Mean Platelet Volume 8.6 fL Neutrophils (%) (Auto) 79.0 % Lymphocytes (%) (Auto) 8.6 % Monocytes (%) (Auto) 7.7 % Eosinophils (%) (Auto) 4.2 % Basophils (%) (Auto) 0.3 % Neutrophils # (Auto) 5.05 K/uL Lymphocytes # (Auto) 0.55 K/uL Monocytes # (Auto) 0.49 K/uL Eosinophils # (Auto) 0.27 K/uL Basophils # (Auto) 0.02 K/uL HbA1c: Test 09/22/16 06:10 Hemoglobin A1c 7.7 % (4.5-5.6) H Recent Pertinent Medications Outpatient Anti-diabetic Regimen: * Prandin 0.5 mg AC The patient is currently receiving: * Basal insulin: None * Correctional Insulin: Novolog Correction per scale ACHS Goal Range: Low 120 mg/dL - High 140 mg/dL Correction Factor: 40 mg/dL/unit * Prandial insulin: Per carb ratio of 1 unit per 13 grams CHO consumed * Oral Agents: None at this time Risk Factors for Insulin Resistance: * Infection: on Rocephin for cellulitis * Diet: AHA/type 2 diabetes - consumed less than 30 gm CHO this AM Assessment & Plan ASSESSMENT: * ADA & AACE recommend a goal blood sugar range 140-180 mg/dl for the majority of critically ill & non-critically ill patients. However, more stringent targets may be selected in individual cases. From 09/22/16 note: * 70yo T2DM female with adequate glycemic control as an outpatient per recent A1c * Reasonable for patient to resume previous outpatient regimen at discharge. * Pt is maintained on oral antidiabetic agents as an outpatient * Oral agents are not recommended for inpatient use d/t drug interactions, changing PO intake, and difficulty titrating for acute hyper/hypoglycemia. ADA recommends re-initiating outpatient oral agents 1-2 days prior to discharge if/ when appropriate if they were held on admission. * Will hold oral agents for admission and utilize SQ basal bolus insulin regimen which is the recommended regimen for inpatient glycemic control. * Will initiate weight based/minimal stress insulin dosing for insulin anish patient and titrate based on BSG trends. * Will consider basal insulin for sustained hyperglycemia (BSG > 180mg/dl) despite bolus insulin orders. Basal insulin may not be needed since pt is adequately controlled on prandin as an outpatient which is mainly for post- prandial hyperglycemia. 09/23/16 * Fasting BSG looked good this AM, indicating no need for basal insulin at this time * BSGs have increased after meals so will plan to tighten CF/CR accordingly to provide additional Novolog coverage PLAN FOR INPATIENT GLYCEMIC CONTROL: * Continue without basal insulin * Continue Novolog ACHS * Goal 120-140 mg/dL * TIGHTEN CF to 25 mg/dL/unit * TIGHTEN CR to 1 unit per 10 gm CHO RECOMMENDATIONS FOR DISCHARGE: * Resume Prandin 0.5 mg before meals Thank you.
--- NOTE | 2016-09-23 14:23 | Progress Note ---
Internal Med Progress Note Date of Service: Sep 23, 2016. Provider Documentation: SUBJECTIVE: Patient is seen and examined at bedside. States SOB is improving. Has some cough , afebrile. Patient had leg pain while dressing change today but currently improved. Denies any chest pain, palpitations, dizziness, nausea, abd pain. OBJECTIVE: Vital Signs-as noted below Physical Exam: General Appearance:Obese, no apparent distress Head: normocephalic, Atraumatic Eyes: normal inspection, EOMI, PERRL Neck: supple, Trachea midline Respiratory/Chest: Decreased breath sounds b/l, CTA, No accessory muscle use Cardiovascular: Irregularly Irregular, + systolic murmur Abdomen/GI:Soft, Non tender, Bowel sounds present, No guarding/rigidity/ organomegaly Extremities/Musculoskelatal:B/L LE edema, erythema, in bandage Neurologic/Psych:AAOX3, grossly no focal neurological deficits Skin: B/L LE erythema, chronic venous stasis, several superficial venous stasis ulcers in bandage Lab data as noted below. ASSESSMENT & PLAN: ACUTE ON CHRONIC SYSTOLIC CHF Acute on chronic left ventricular systolic heart failure. Last Echo: LVEF: 20-25%. S/P single chamber defibrillator/pacemaker Continue carvedilol, digoxin No CRISTIN or ARB due to renal insufficiency. Daily weight, I/Os Monitor electrolytes Low salt diet Oxygen support per protocol, titrate off oxygen as able Resume lasix 40mg IV BID; start titrating down tomorrow Weight already down by 4kg Repeat CXR in AM CORONARY ARTERY DISEASE Denies chest pain, Troponin negative Continue aspirin, carvedilol, statin ATRIAL FIBRILLATION Rate controlled Continue carvedilol, digoxin, apixaban. Digoxin levels:wnl JASON on CKD IV Serum creatinine 1.9 today Monitor renal function Avoid nephrotoxic agents DM TYPE II Hold repaglinide Check Hgb A1C: 7.7 Start ISS, accu checks DYSLIPIDEMIA Continue simvastatin LOWER EXTREMITY ERYTHEMA Likely secondary to venous stasis Continue to monitor LOWER EXTREMITY VENOUS STASIS ULCERS Continue wound care Wound Culture from 09/10/16:GROUP B BETA STREP Continue IV ceftriaxone Wound cultures:pending Needs follow-up with Wound Clinic LOOSE STOOLS: Resolved Check stools for C diff if reoccurs DVT PX: On Apixaban. Ambulate as able. RESUSCITATION STATUS Full code DISPOSITION Continue monitoring in Tele. Will plan to DC to [place] [facility] when stable Follow up with PCP Dr. Lola Jean. Vital Signs: Date Time Temp Pulse Resp B/P Pulse Ox O2 Delivery O2 Flow Rate FiO2 09/23/16 12:30 Nasal Cannula 2.0 09/23/16 11:39 36.2 76 16 103/52 94 Nasal Cannula 2.0 09/23/16 11:00 88 98 09/23/16 08:00 Nasal Cannula 2.0 09/23/16 07:53 36.5 88 20 108/69 97 Nasal Cannula 2.0 09/23/16 04:00 Nasal Cannula 2.0 09/23/16 04:00 36.6 91 18 119/71 96 Nasal Cannula 2.0 09/23/16 00:24 36.5 105 18 108/71 96 Nasal Cannula 2.0 09/23/16 00:00 Nasal Cannula 2.0 09/22/16 20:00 Nasal Cannula 2.0 09/22/16 19:52 36.7 87 20 95/67 98 Nasal Cannula 2.0 09/22/16 17:10 85 09/22/16 15:05 36.5 99 20 100/55 95 Nasal Cannula 2.0 Lab Results: Results Past 24 Hours Test 09/22/16 16:31 09/22/16 20:49 09/23/16 05:30 09/23/16 07:38 Range/Units Bedside Glucose 213 222 174 70-90 mg/dl White Blood Count 6.39 4.8-10.8 K/uL Red Blood Count 3.91 4.2-5.4 M/uL Hemoglobin 10.9 12.0-16.0 g/dL Hematocrit 37.7 37-47 % Mean Corpuscular Volume 96.4 80-100 fL Mean Corpuscular Hemoglobin 27.9 25-34 pg Mean Corpuscular Hemoglobin Concent 28.9 32-36 g/dl Platelet Count 187 130-400 K/uL Mean Platelet Volume 8.6 7.4-10.4 fL Neutrophils (%) (Auto) 79.0 % Lymphocytes (%) (Auto) 8.6 % Monocytes (%) (Auto) 7.7 % Eosinophils (%) (Auto) 4.2 % Basophils (%) (Auto) 0.3 % Neutrophils # (Auto) 5.05 1.4-6.5 K/uL Lymphocytes # (Auto) 0.55 1.2-3.4 K/uL Monocytes # (Auto) 0.49 0.11-0.59 K/uL Eosinophils # (Auto) 0.27 0-0.5 K/uL Basophils # (Auto) 0.02 0-0.2 K/uL RDW Standard Deviation 70.3 36.4-46.3 fL RDW Coefficient of Variation 20.0 11.5-14.5 % Immature Granulocyte % (Auto) 0.2 % Immature Granulocyte # (Auto) 0.01 0.00-0.02 K/uL Polychromasia 1+ Anisocytosis PRESENT Sodium Level 142 136-145 mmol/L Potassium Level 4.0 3.5-5.1 mmol/L Chloride Level 100 98-107 mmol/L Carbon Dioxide Level 39 21-32 mmol/L Anion Gap 3.0 3-11 mmol/L Blood Urea Nitrogen 55 7-18 mg/dl Creatinine 1.90 0.60-1.20 mg/dl Est Creatinine Clear Calc Drug Dose 33.5 ml/min Estimated GFR () 30.0 Estimated GFR (Non- 25.9 BUN/Creatinine Ratio 29.0 10-20 Random Glucose 148 70-99 mg/dl Calcium Level 8.9 8.5-10.1 mg/dl Test 09/23/16 11:32 Range/Units Bedside Glucose 217 70-90 mg/dl Microbiology Results 09/23/16 Gram Stain - Final, Resulted 09/23/16 Wound Culture, Resulted Pending
[2016-09-24] VITALS (7 sets, daily range): BP systolic 92–111; BP diastolic 52–68; PULSE 78–106; TEMP 36.3–36.8; O2SAT 94–97
[2016-09-24] MEDS: ACETAMINOPHEN 325 MG TAB PO PRN ×2 (02:17→11:02)
[2016-09-24] MEDS: POLYETHYLENE (MIRALAX) 17 GM PACK PO PRN (05:41)
--- NOTE | 2016-09-24 07:45 | DIAGNOSTIC IMAGING REPORT ---
CHEST ONE VIEW PORTABLE CLINICAL HISTORY: CHF, R/O Pneumonia dyspnea COMPARISON STUDY: 09/20/2016 FINDINGS: Moderate stable cardiomegaly. Diminished prominence of the pulmonary vasculature. Permanent unipolar cardiac pacemaker/fibrillator in good position. IMPRESSION: Improving changes of congestive failure/pulmonary edema. Electronically signed by: Sen Magallon M.D. 09/24/2016 7:43 AM Dictated Date/Time: 09/24/2016 7:43 AM
[2016-09-24] MEDS: CEFTRIAXONE SOD INJ 1 GM in DEXTROSE 5% ADD-VANTAGE 50ML 50 ML IV SCH (07:53)
[2016-09-24] MEDS: FUROSEMIDE INJ 40 MG in SYRINGE 0 ML IV SCH (07:53)
[2016-09-24] MEDS: CARVEDILOL 12.5 MG TAB PO SCH ×2 (07:53→20:50)
[2016-09-24] MEDS: APIXABAN 2.5 MG TAB PO SCH ×2 (07:54→20:50)
[2016-09-24] MEDS: GABAPENTIN 100 MG CAP PO SCH ×3 (07:55→20:50)
[2016-09-24] MEDS: AMIODARONE 200 MG TAB PO SCH (07:55)
[2016-09-24] MEDS: MAGNESIUM OXIDE 400 MG TAB PO SCH (07:57)
[2016-09-24] MEDS: ASPIRIN 81 MG ECTAB PO SCH (07:57)
[2016-09-24] MEDS: SENNA 8.6 MG TAB PO SCH ×2 (07:57→20:50)
[2016-09-24 08:03] LABS: BASO % 0.3 %; BASO ABS # 0.02 K/uL (0-0.2); COMPLETE YES; HEMATOCRIT 37.8 % (37-47); LYMPH % 6.4 %; LYMPH ABS # 0.41 K/uL (1.2-3.4); MEAN CELL VOLUME 96.2 fL (80-100); MEAN CORPUSCULAR HEMOGLOBIN 27.5 pg (25-34); MEAN CORPUSCULAR HGB CONC 28.6 g/dl (32-36); MEAN PLATELET VOLUME 8.8 fL (7.4-10.4); MONO % 8.4 %; NEUT % 79.9 %; PLATELET COUNT 179 K/uL (130-400); RED BLOOD COUNT 3.93 M/uL (4.2-5.4)
[2016-09-24 08:26] LABS: BUN/CREATININE RATIO 29.4 (10-20); CALCIUM 8.8 mg/dl (8.5-10.1); CREATININE 1.9 mg/dl (0.60-1.20)
[2016-09-24] MEDS: INSULIN ASPART 100 UNITS/ML 3 ML PEN SC SCH ×4 (08:57→21:08)
--- NOTE | 2016-09-24 15:27 | Progress Note ---
Internal Med Progress Note Date of Service: Sep 24, 2016. Provider Documentation: SUBJECTIVE: Patient is seen and examined at bedside. States having RLE pain while ambulating. SOB is improving. Denies any chest pain, palpitations, dizziness. OBJECTIVE: Vital Signs-as noted below Physical Exam: General Appearance:Obese, no apparent distress Head: normocephalic, Atraumatic Eyes: normal inspection, EOMI, PERRL Neck: supple, Trachea midline Respiratory/Chest: Decreased breath sounds b/l, CTA, No accessory muscle use Cardiovascular: Irregularly Irregular, + systolic murmur Abdomen/GI:Soft, Non tender, Bowel sounds present, No guarding/rigidity/ organomegaly Extremities/Musculoskelatal:B/L LE edema, erythema, in bandage Neurologic/Psych:AAOX3, grossly no focal neurological deficits Skin: B/L LE erythema, chronic venous stasis, several superficial venous stasis ulcers in bandage Lab data as noted below. ASSESSMENT & PLAN: ACUTE ON CHRONIC SYSTOLIC CHF Acute on chronic left ventricular systolic heart failure. Last Echo: LVEF: 20-25%. S/P single chamber defibrillator/pacemaker Continue carvedilol, digoxin No CRISTIN or ARB due to renal insufficiency. Daily weight, I/Os Monitor electrolytes Low salt diet Oxygen requirement coming down: now at 1L NC Titrate down lasix 40mg IV daily Weight already down by 4kg Repeat CXR: Improved pulmonary edema CORONARY ARTERY DISEASE Denies chest pain, Troponin negative Continue aspirin, carvedilol, statin ATRIAL FIBRILLATION Rate controlled Continue carvedilol, digoxin, apixaban. Digoxin levels:wnl JASON on CKD IV Serum creatinine 1.9 today. Stable Monitor renal function Avoid nephrotoxic agents DM TYPE II Hold repaglinide Check Hgb A1C: 7.7 Start ISS, accu checks DYSLIPIDEMIA Continue simvastatin LOWER EXTREMITY ERYTHEMA Likely secondary to venous stasis Continue to monitor LOWER EXTREMITY VENOUS STASIS ULCERS Continue wound care Wound Culture from 09/10/16:GROUP B BETA STREP Continue IV ceftriaxone for now Wound cultures:pending Needs follow-up with Wound Clinic LOOSE STOOLS: Resolved Check stools for C diff if reoccurs DVT PX: On Apixaban. Ambulate as able. RESUSCITATION STATUS Full code DISPOSITION Continue monitoring in Tele. Will plan to DC to [facility] when stable Follow up with PCP Dr. Lola Jean. Vital Signs: Date Time Temp Pulse Resp B/P Pulse Ox O2 Delivery O2 Flow Rate FiO2 09/24/16 14:39 36.8 102 16 97/58 95 Room Air 09/24/16 12:00 Nasal Cannula 1.0 09/24/16 11:20 36.4 104 20 104/68 94 Nasal Cannula 3.0 09/24/16 08:00 Nasal Cannula 2.0 09/24/16 07:28 36.4 86 18 92/52 97 Nasal Cannula 2.0 09/24/16 04:32 36.4 82 18 102/67 95 Nasal Cannula 2.0 09/24/16 04:00 Nasal Cannula 2.0 09/24/16 00:22 36.3 78 18 102/59 97 Nasal Cannula 2.0 09/24/16 00:00 Nasal Cannula 2.0 09/23/16 20:30 110/66 09/23/16 20:00 Nasal Cannula 2.0 09/23/16 19:47 36.4 76 18 98/64 100 Nasal Cannula 2.0 09/23/16 16:00 Nasal Cannula 2.0 Lab Results: Results Past 24 Hours Test 09/23/16 16:18 09/23/16 20:18 09/24/16 07:14 09/24/16 08:01 Range/Units Bedside Glucose 170 189 144 70-90 mg/dl White Blood Count 6.40 4.8-10.8 K/uL Red Blood Count 3.93 4.2-5.4 M/uL Hemoglobin 10.8 12.0-16.0 g/dL Hematocrit 37.8 37-47 % Mean Corpuscular Volume 96.2 80-100 fL Mean Corpuscular Hemoglobin 27.5 25-34 pg Mean Corpuscular Hemoglobin Concent 28.6 32-36 g/dl Platelet Count 179 130-400 K/uL Mean Platelet Volume 8.8 7.4-10.4 fL Neutrophils (%) (Auto) 79.9 % Lymphocytes (%) (Auto) 6.4 % Monocytes (%) (Auto) 8.4 % Eosinophils (%) (Auto) 5.0 % Basophils (%) (Auto) 0.3 % Neutrophils # (Auto) 5.11 1.4-6.5 K/uL Lymphocytes # (Auto) 0.41 1.2-3.4 K/uL Monocytes # (Auto) 0.54 0.11-0.59 K/uL Eosinophils # (Auto) 0.32 0-0.5 K/uL Basophils # (Auto) 0.02 0-0.2 K/uL RDW Standard Deviation 68.0 36.4-46.3 fL RDW Coefficient of Variation 19.4 11.5-14.5 % Immature Granulocyte % (Auto) 0.0 % Immature Granulocyte # (Auto) 0.00 0.00-0.02 K/uL Sodium Level 140 136-145 mmol/L Potassium Level 4.0 3.5-5.1 mmol/L Chloride Level 98 98-107 mmol/L Carbon Dioxide Level 36 21-32 mmol/L Anion Gap 6.0 3-11 mmol/L Blood Urea Nitrogen 56 7-18 mg/dl Creatinine 1.90 0.60-1.20 mg/dl Est Creatinine Clear Calc Drug Dose 33.4 ml/min Estimated GFR () 30.0 Estimated GFR (Non- 25.9 BUN/Creatinine Ratio 29.4 10-20 Random Glucose 140 70-99 mg/dl Calcium Level 8.8 8.5-10.1 mg/dl Test 09/24/16 11:42 Range/Units Bedside Glucose 218 70-90 mg/dl Microbiology Results 09/24/16 Gram Stain - Final, Resulted 09/24/16 Wound Culture, Resulted Pending
[2016-09-24] MEDS: DIGOXIN 0.125 MG TAB PO SCH (16:29)
[2016-09-24] MEDS ORDERED: FUROSEMIDE 40 MG TAB PO ONE (18:00)
[2016-09-24] MEDS: SIMVASTATIN 20 MG TAB PO SCH (20:50)
[2016-09-24] MEDS: BISACODYL 10 MG SUPP PR PRN (21:04)
[2016-09-25] VITALS (7 sets, daily range): BP systolic 99–142; BP diastolic 52–71; PULSE 68–103; TEMP 36.4–36.8; O2SAT 91–95
[2016-09-25] MEDS: ACETAMINOPHEN 325 MG TAB PO PRN ×2 (00:43→12:12)
[2016-09-25 06:46] LABS: BUN/CREATININE RATIO 30.6 (10-20); CALCIUM 8.7 mg/dl (8.5-10.1); CREATININE 1.8 mg/dl (0.60-1.20); POTASSIUM 4.1 mmol/L (3.5-5.1)
[2016-09-25] MEDS: CEFTRIAXONE SOD INJ 1 GM in DEXTROSE 5% ADD-VANTAGE 50ML 50 ML IV SCH (08:27)
[2016-09-25] MEDS: CARVEDILOL 12.5 MG TAB PO SCH ×2 (08:30→21:10)
[2016-09-25] MEDS: AMIODARONE 200 MG TAB PO SCH (08:30)
[2016-09-25] MEDS: GABAPENTIN 100 MG CAP PO SCH ×3 (08:31→21:10)
[2016-09-25] MEDS: SENNA 8.6 MG TAB PO SCH ×2 (08:31→21:10)
[2016-09-25] MEDS: APIXABAN 2.5 MG TAB PO SCH ×2 (08:31→21:12)
[2016-09-25] MEDS: ASPIRIN 81 MG ECTAB PO SCH (08:31)
[2016-09-25] MEDS: MAGNESIUM OXIDE 400 MG TAB PO SCH (08:33)
[2016-09-25] MEDS: INSULIN ASPART 100 UNITS/ML 3 ML PEN SC SCH ×4 (08:40→21:15)
[2016-09-25] MEDS ORDERED: FUROSEMIDE INJ 40 MG in SYRINGE 0 ML IV SCH (09:00)
--- NOTE | 2016-09-25 11:54 | Progress Note ---
Internal Med Progress Note Date of Service: Sep 25, 2016. Provider Documentation: SUBJECTIVE: Patient is seen and examined at bedside. Feels well. Denies any SOB, chest pain. RLE pain much improved. No other complaints. OBJECTIVE: Vital Signs-as noted below Physical Exam: General Appearance:Obese, no apparent distress Head: normocephalic, Atraumatic Eyes: normal inspection, EOMI, PERRL Neck: supple, Trachea midline Respiratory/Chest: Decreased breath sounds b/l, CTA, No accessory muscle use Cardiovascular: Irregularly Irregular, + systolic murmur Abdomen/GI:Soft, Non tender, Bowel sounds present Extremities/Musculoskelatal:B/L LE edema, erythema, in bandage Neurologic/Psych:AAOX3, grossly no focal neurological deficits Skin: B/L LE erythema, chronic venous stasis, several superficial venous stasis ulcers in bandage Lab data as noted below. ASSESSMENT & PLAN: ACUTE ON CHRONIC SYSTOLIC CHF Acute on chronic left ventricular systolic heart failure. Last Echo: LVEF: 20-25%. S/P single chamber defibrillator/pacemaker Continue carvedilol, digoxin No CRISTIN or ARB due to renal insufficiency. Daily weight, I/Os Monitor electrolytes Low salt diet Oxygen requirement coming down: now at 1L NC Switch to PO lasix today Weight decreased by 5kg Repeat CXR: Improved pulmonary edema Check Nocturnal pulse Oximetry, 2 step prior to discharge CORONARY ARTERY DISEASE Denies chest pain, Troponin negative Continue aspirin, carvedilol, statin ATRIAL FIBRILLATION Rate controlled Continue carvedilol, digoxin, apixaban. Digoxin levels:wnl JASON on CKD IV Serum creatinine 1.8 today. Stable Monitor renal function Avoid nephrotoxic agents DM TYPE II Hold repaglinide Check Hgb A1C: 7.7 Start ISS, accu checks DYSLIPIDEMIA Continue simvastatin LOWER EXTREMITY ERYTHEMA Likely secondary to venous stasis Continue to monitor LOWER EXTREMITY VENOUS STASIS ULCERS Continue wound care Wound Culture from 09/10/16:GROUP B BETA STREP Continue IV ceftriaxone for now Wound cultures:pending Needs follow-up with Wound Clinic LOOSE STOOLS: Resolved Check stools for C diff if reoccurs DVT PX: On Apixaban. Ambulate as able. RESUSCITATION STATUS Full code DISPOSITION Continue monitoring in Tele. Will plan to DC to [facility] when stable Follow up with PCP Dr. Lola Jean. Vital Signs: Date Time Temp Pulse Resp B/P Pulse Ox O2 Delivery O2 Flow Rate FiO2 09/25/16 16:00 Room Air 09/25/16 15:22 36.4 96 18 99/61 91 Nasal Cannula 2.0 09/25/16 12:00 Room Air 09/25/16 11:49 36.6 76 18 112/68 95 Nasal Cannula 2.0 09/25/16 08:53 68 142/71 09/25/16 08:00 94 Nasal Cannula 1.0 09/25/16 07:39 36.8 92 16 116/52 94 Nasal Cannula 1.0 09/25/16 06:05 Nasal Cannula 1.0 09/25/16 05:07 36.5 89 18 109/67 95 Nasal Cannula 1.0 09/25/16 03:41 Nasal Cannula 1.0 09/25/16 00:10 Nasal Cannula 1.0 09/24/16 22:48 36.4 84 18 111/67 94 Nasal Cannula 1.0 09/24/16 20:10 Nasal Cannula 1.0 09/24/16 19:30 36.4 106 18 98/58 96 Nasal Cannula 1.0 Lab Results: Results Past 24 Hours Test 09/24/16 20:18 09/25/16 05:47 09/25/16 07:48 09/25/16 12:02 Range/Units Bedside Glucose 186 154 158 70-90 mg/dl Sodium Level 139 136-145 mmol/L Potassium Level 4.1 3.5-5.1 mmol/L Chloride Level 98 98-107 mmol/L Carbon Dioxide Level 37 21-32 mmol/L Anion Gap 4.0 3-11 mmol/L Blood Urea Nitrogen 55 7-18 mg/dl Creatinine 1.80 0.60-1.20 mg/dl Est Creatinine Clear Calc Drug Dose 35.2 ml/min Estimated GFR () 32.0 Estimated GFR (Non- 27.6 BUN/Creatinine Ratio 30.6 10-20 Random Glucose 195 70-99 mg/dl Calcium Level 8.7 8.5-10.1 mg/dl Test 09/25/16 16:34 Range/Units Bedside Glucose 202 70-90 mg/dl
--- NOTE | 2016-09-25 15:12 | Pharmacy Progress Note ---
Glycemic: Assessment & Plan Date of Service Sep 25, 2016. Assessment & Plan Assessment * BSGs ranging 154 - 186 mg/dl over the past 24hrs. * No changes to regimen made recently * Stressors stable Plan Pharmacy will sign off at this time. * Please note that the plan above was derived based on current level of insulin resistance and hospital stress. These recommendations are appropriate for inpatient admission only. Plan of care upon discharge will need to be reassessed to avoid potential outpatient hypo/hyperglycemia.
[2016-09-25] MEDS: SIMVASTATIN 20 MG TAB PO SCH (21:10)
[2016-09-26] VITALS (9 sets, daily range): BP systolic 95–120; BP diastolic 61–79; PULSE 91–101; TEMP 36.4–37.1; O2SAT 90–99
[2016-09-26] MEDS ORDERED: ONDANSETRON INJ 2 MG/ML 2 ML VIAL IV PRN (01:45)
[2016-09-26] MEDS ORDERED: ONDANSETRON INJ 2 MG/ML 2 ML VIAL ONE (01:53)
[2016-09-26] MEDS: PROMETHAZINE HCL INJ 12.5 MG in SODIUM CHLORIDE 0.9% 50ML 50 ML IV PRN (03:45)
[2016-09-26] MEDS: POLYETHYLENE (MIRALAX) 17 GM PACK PO PRN (03:59)
[2016-09-26] MEDS ORDERED: NITROGLYCERIN 0.4 MG SL PER TAB CHARGE SL STA (04:15)
[2016-09-26] MEDS ORDERED: ONDANSETRON INJ 2 MG/ML 2 ML VIAL IV ONE (04:20)
[2016-09-26 04:58] LABS: BASO % 0.5 %; BASO ABS # 0.03 K/uL (0-0.2); COMPLETE YES; EOS % 4.7 %; HEMATOCRIT 38.4 % (37-47); IG% 0.3 %; LYMPH % 8.5 %; LYMPH ABS # 0.55 K/uL (1.2-3.4); MEAN CELL VOLUME 93.7 fL (80-100); MEAN CORPUSCULAR HEMOGLOBIN 27.3 pg (25-34); MEAN CORPUSCULAR HGB CONC 29.2 g/dl (32-36); MEAN PLATELET VOLUME 8.3 fL (7.4-10.4); PLATELET COUNT 175 K/uL (130-400); WHITE BLOOD COUNT 6.45 K/uL (4.8-10.8)
[2016-09-26 05:11] LABS: PARTIAL THROMBOPLASTIN RATIO 1.2
[2016-09-26 05:18] LABS: ALT/SGPT 18 U/L (12-78); AST/SGOT 13 U/L (15-37); BLOOD UREA NITROGEN 54 mg/dl (7-18); BUN/CREATININE RATIO 25.8 (10-20); CALCIUM 8.6 mg/dl (8.5-10.1); CARBON DIOXIDE 35 mmol/L (21-32); CHLORIDE 96 mmol/L (98-107); GLUCOSE 288 mg/dl (70-99); MAGNESIUM 2.7 mg/dl (1.8-2.4); POTASSIUM 4.2 mmol/L (3.5-5.1); SODIUM 137 mmol/L (136-145)
[2016-09-26 05:24] LABS: ALB/GLOB RATIO 0.6 (0.9-2); ALKALINE PHOSPHATASE 52 U/L (45-117)
[2016-09-26] MEDS ORDERED: HYDROmorphone INJ 0.5 MG/0.5 ML SYR IV PRN (05:45)
[2016-09-26] MEDS: CEFTRIAXONE SOD INJ 1 GM in DEXTROSE 5% ADD-VANTAGE 50ML 50 ML IV SCH (07:42)
[2016-09-26] MEDS: APIXABAN 2.5 MG TAB PO SCH ×2 (08:48→21:04)
[2016-09-26] MEDS: MAGNESIUM OXIDE 400 MG TAB PO SCH (08:49)
[2016-09-26] MEDS: GABAPENTIN 100 MG CAP PO SCH ×3 (08:49→21:04)
[2016-09-26] MEDS: AMIODARONE 200 MG TAB PO SCH (08:50)
[2016-09-26] MEDS: ASPIRIN 81 MG ECTAB PO SCH (08:50)
[2016-09-26] MEDS: SENNA 8.6 MG TAB PO SCH ×2 (08:50→21:03)
[2016-09-26] MEDS: FUROSEMIDE 80 MG TAB PO SCH (08:50)
[2016-09-26] MEDS: CARVEDILOL 12.5 MG TAB PO SCH ×2 (08:50→21:05)
[2016-09-26] MEDS: INSULIN ASPART 100 UNITS/ML 3 ML PEN SC SCH ×4 (08:57→21:12)
[2016-09-26] MEDS: ACETAMINOPHEN 325 MG TAB PO PRN ×2 (08:58→16:41)
--- NOTE | 2016-09-26 11:51 | Progress Note ---
Internal Med Progress Note Date of Service: Sep 26, 2016. Provider Documentation: SUBJECTIVE: Patient is seen and examined at bedside. States having nausea overnight. Currently denies chest pain, SOB, palpitations. Denies RLE pain. Received zofran overnight, Noted QTC prolongation. Offers no other complaints. OBJECTIVE: Vital Signs-as noted below Physical Exam: General Appearance:Obese, no apparent distress Head: normocephalic, Atraumatic Eyes: normal inspection, EOMI, PERRL Neck: supple, Trachea midline Respiratory/Chest: Decreased breath sounds b/l, CTA, No accessory muscle use Cardiovascular: Irregularly Irregular, + systolic murmur Abdomen/GI:Soft, Non tender, Bowel sounds present Extremities/Musculoskelatal:B/L LE edema, erythema, in bandage Neurologic/Psych:AAOX3, grossly no focal neurological deficits Skin: B/L LE erythema, chronic venous stasis, several superficial venous stasis ulcers in bandage Lab data as noted below. ASSESSMENT & PLAN: ACUTE ON CHRONIC SYSTOLIC CHF Acute on chronic left ventricular systolic heart failure. Last Echo: LVEF: 20-25%. S/P single chamber defibrillator/pacemaker Continue carvedilol, digoxin No CRISTIN or ARB due to renal insufficiency. Daily weight, I/Os Monitor electrolytes Low salt diet Oxygen requirement coming down: now at 1L NC S/P IV diuretics Continue PO lasix started 09/26/16 Repeat CXR: Improved pulmonary edema Needs 2 step prior to discharge QTC prolongation: DC zofran Avoids med that cause QT prolongation Repeat EKG in AM Hypermagnesemia: Hold PO magnesium Monitor levels CORONARY ARTERY DISEASE Denies chest pain, Troponin negative Continue aspirin, carvedilol, statin Trend troponin, CKMB ATRIAL FIBRILLATION Rate controlled Continue carvedilol, digoxin, amiodarone, apixaban. Digoxin levels:wnl JASON on CKD IV Serum creatinine stable Monitor renal function Avoid nephrotoxic agents DM TYPE II Hold repaglinide Check Hgb A1C: 7.7 Start ISS, accu checks DYSLIPIDEMIA Continue simvastatin LOWER EXTREMITY ERYTHEMA Likely secondary to venous stasis Continue to monitor LOWER EXTREMITY VENOUS STASIS ULCERS Continue wound care Wound Culture from 09/10/16:GROUP B BETA STREP Continue IV ceftriaxone for now Wound cultures:Strep, follow sensitivities.pending Needs follow-up with Wound Clinic LOOSE STOOLS: Resolved Check stools for C diff if reoccurs DVT PX: On Apixaban. Ambulate as able. RESUSCITATION STATUS Full code DISPOSITION Continue monitoring in Tele. Will plan to DC to [facility] when stable Follow up with PCP Dr. Lola Jean. Vital Signs: Date Time Temp Pulse Resp B/P Pulse Ox O2 Delivery O2 Flow Rate FiO2 09/26/16 11:25 36.7 98 16 95/61 96 Nasal Cannula 2.0 09/26/16 09:00 101 116/75 09/26/16 08:00 Nasal Cannula 2.0 09/26/16 07:16 36.4 100 16 120/79 97 Nasal Cannula 2.0 09/26/16 04:51 36.8 97 20 99/63 90 Nasal Cannula 2.0 09/26/16 04:50 Nasal Cannula 2.0 09/26/16 00:34 Nasal Cannula 2.0 09/26/16 00:02 37.1 91 18 119/69 91 Nasal Cannula 2.0 09/25/16 20:00 Nasal Cannula 2.0 09/25/16 19:45 36.4 103 18 116/71 92 Nasal Cannula 2.0 09/25/16 16:00 Room Air 09/25/16 15:22 36.4 96 18 99/61 91 Nasal Cannula 2.0 Lab Results: Results Past 24 Hours Test 09/25/16 16:34 09/25/16 20:15 09/26/16 04:49 09/26/16 07:29 Range/Units Bedside Glucose 202 185 222 70-90 mg/dl White Blood Count 6.45 4.8-10.8 K/uL Red Blood Count 4.10 4.2-5.4 M/uL Hemoglobin 11.2 12.0-16.0 g/dL Hematocrit 38.4 37-47 % Mean Corpuscular Volume 93.7 80-100 fL Mean Corpuscular Hemoglobin 27.3 25-34 pg Mean Corpuscular Hemoglobin Concent 29.2 32-36 g/dl Platelet Count 175 130-400 K/uL Mean Platelet Volume 8.3 7.4-10.4 fL Neutrophils (%) (Auto) 80.0 % Lymphocytes (%) (Auto) 8.5 % Monocytes (%) (Auto) 6.0 % Eosinophils (%) (Auto) 4.7 % Basophils (%) (Auto) 0.5 % Neutrophils # (Auto) 5.16 1.4-6.5 K/uL Lymphocytes # (Auto) 0.55 1.2-3.4 K/uL Monocytes # (Auto) 0.39 0.11-0.59 K/uL Eosinophils # (Auto) 0.30 0-0.5 K/uL Basophils # (Auto) 0.03 0-0.2 K/uL RDW Standard Deviation 66.8 36.4-46.3 fL RDW Coefficient of Variation 19.2 11.5-14.5 % Immature Granulocyte % (Auto) 0.3 % Immature Granulocyte # (Auto) 0.02 0.00-0.02 K/uL Activated Partial Thromboplast Time 30.9 21.0-31.0 SECONDS Partial Thromboplastin Ratio 1.2 Sodium Level 137 136-145 mmol/L Potassium Level 4.2 3.5-5.1 mmol/L Chloride Level 96 98-107 mmol/L Carbon Dioxide Level 35 21-32 mmol/L Anion Gap 6.0 3-11 mmol/L Blood Urea Nitrogen 54 7-18 mg/dl Creatinine 2.10 0.60-1.20 mg/dl Est Creatinine Clear Calc Drug Dose 30.5 ml/min Estimated GFR () 26.6 Estimated GFR (Non- 22.9 BUN/Creatinine Ratio 25.8 10-20 Random Glucose 288 70-99 mg/dl Calcium Level 8.6 8.5-10.1 mg/dl Magnesium Level 2.7 1.8-2.4 mg/dl Total Bilirubin 0.4 0.2-1 mg/dl Aspartate Amino Transf (AST/SGOT) 13 15-37 U/L Alanine Aminotransferase (ALT/SGPT) 18 12-78 U/L Alkaline Phosphatase 52 45-117 U/L Troponin I < 0.015 0-0.045 ng/ml Total Protein 8.2 6.4-8.2 gm/dl Albumin 3.0 3.4-5.0 gm/dl Globulin 5.2 2.5-4.0 gm/dl Albumin/Globulin Ratio 0.6 0.9-2 Lipase 204 73-393 U/L Digoxin Level 0.8 0.8-2.0 ng/ml Test 09/26/16 11:32 09/26/16 11:43 Range/Units Bedside Glucose 177 70-90 mg/dl Creatine Kinase MB Ratio 0-3.0
[2016-09-26] MEDS: DIGOXIN 0.125 MG TAB PO SCH (18:02)
[2016-09-26] MEDS: BISACODYL 10 MG SUPP PR PRN (18:12)
[2016-09-26] MEDS: SIMVASTATIN 20 MG TAB PO SCH (21:03)
[2016-09-27 04:00] VITALS: BP 112/74; PULSE 89; TEMP 36.6; O2SAT 100
[2016-09-27 07:48] LABS: BUN/CREATININE RATIO 28.2 (10-20); CALCIUM 9.1 mg/dl (8.5-10.1); CREATININE 2.1 mg/dl (0.60-1.20); MAGNESIUM 2.8 mg/dl (1.8-2.4); POTASSIUM 4.5 mmol/L (3.5-5.1)
[2016-09-27 07:51] VITALS: BP 111/73; PULSE 107; TEMP 36.5; O2SAT 99
[2016-09-27] MEDS: CEFTRIAXONE SOD INJ 1 GM in DEXTROSE 5% ADD-VANTAGE 50ML 50 ML IV SCH (08:00)
[2016-09-27] MEDS: GABAPENTIN 100 MG CAP PO SCH ×3 (08:00→20:01)
[2016-09-27] MEDS: AMIODARONE 200 MG TAB PO SCH (08:00)
[2016-09-27] MEDS: SENNA 8.6 MG TAB PO SCH ×2 (08:00→20:00)
[2016-09-27] MEDS: CARVEDILOL 12.5 MG TAB PO SCH ×2 (08:00→20:01)
[2016-09-27] MEDS: APIXABAN 2.5 MG TAB PO SCH ×2 (08:00→20:02)
[2016-09-27] MEDS: FUROSEMIDE 80 MG TAB PO SCH (08:00)
[2016-09-27] MEDS: ASPIRIN 81 MG ECTAB PO SCH (08:00)
[2016-09-27] MEDS: INSULIN ASPART 100 UNITS/ML 3 ML PEN SC SCH ×4 (08:04→21:49)
--- NOTE | 2016-09-27 11:26 | Progress Note ---
Internal Med Progress Note Date of Service: Sep 27, 2016. Provider Documentation: SUBJECTIVE: Patient is seen and examined at bedside. Denies any complaints. Nauseous overnight. Requiring moCurrently denies chest pain, SOB, palpitations. Denies RLE pain. Received zofran overnight, Noted QTC prolongation. Offers no other complaints. OBJECTIVE: Vital Signs-as noted below Physical Exam: General Appearance:Obese, no apparent distress Head: normocephalic, Atraumatic Eyes: normal inspection, EOMI, PERRL Neck: supple, Trachea midline Respiratory/Chest: Decreased breath sounds b/l, CTA, No accessory muscle use Cardiovascular: Irregularly Irregular, + systolic murmur Abdomen/GI:Soft, Non tender, Bowel sounds present Extremities/Musculoskelatal:B/L LE edema, erythema, in bandage Neurologic/Psych:AAOX3, grossly no focal neurological deficits Skin: B/L LE erythema, chronic venous stasis, several superficial venous stasis ulcers in bandage Lab data as noted below. ASSESSMENT & PLAN: ACUTE ON CHRONIC SYSTOLIC CHF ACUTE HYPOXIC RESPIRATORY FAILURE Acute on chronic left ventricular systolic heart failure. Last Echo: LVEF: 20-25%. S/P single chamber defibrillator/pacemaker Could have underlying sleep apnea/Obesity hypoventilation syndrome Continue carvedilol, digoxin No CRISTIN or ARB due to renal insufficiency. Daily weight, I/Os Monitor electrolytes Low salt diet/Fluid restriction Oxygen requirement going up S/P IV diuretics Recheck CXR: mildly progressive CHF On PO lasix started 09/26/16 Will give a dose of IV lasix Could consider Hydralazine/Nitrates Needs 2 step prior to discharge Will consult cardiology QTC prolongation: DC zofran Avoids med that cause QT prolongation Hypermagnesemia: Hold PO magnesium Monitor levels CORONARY ARTERY DISEASE Denies chest pain, Troponin negative Continue aspirin, carvedilol, statin ATRIAL FIBRILLATION Rate controlled Continue carvedilol, digoxin, amiodarone, apixaban. Digoxin levels:wnl JASON on CKD IV Serum creatinine stable Monitor renal function Avoid nephrotoxic agents DM TYPE II Hold repaglinide Check Hgb A1C: 7.7 Start ISS, accu checks DYSLIPIDEMIA Continue simvastatin LOWER EXTREMITY ERYTHEMA Likely secondary to venous stasis Continue to monitor LOWER EXTREMITY VENOUS STASIS ULCERS Continue wound care Wound Culture from 09/10/16:GROUP B BETA STREP Continue IV ceftriaxone for now Wound cultures:Strep, follow sensitivities.pending Needs follow-up with Wound Clinic LOOSE STOOLS: Resolved Check stools for C diff if reoccurs DVT PX: On Apixaban. Ambulate as able. RESUSCITATION STATUS Full code DISPOSITION Continue monitoring in Tele. Will plan to DC to [facility] when stable Follow up with PCP Dr. Lola Jean. Vital Signs: Date Time Temp Pulse Resp B/P Pulse Ox O2 Delivery O2 Flow Rate FiO2 09/27/16 16:32 36.7 101 18 116/74 99 Nasal Cannula 4.0 09/27/16 16:00 Nasal Cannula 4.0 09/27/16 11:46 36.4 101 16 110/70 100 Nasal Cannula 4.5 09/27/16 11:45 Nasal Cannula 4.0 09/27/16 08:00 Nasal Cannula 4.0 09/27/16 07:51 36.5 107 16 111/73 99 Nasal Cannula 4.0 09/27/16 04:00 Nasal Cannula 4.0 09/27/16 04:00 36.6 89 20 112/74 100 3.0 09/27/16 00:00 Nasal Cannula 5.0 09/26/16 23:47 36.5 92 20 120/72 99 4.0 09/26/16 21:07 98 110/76 09/26/16 20:00 Nasal Cannula 5.0 09/26/16 20:00 36.4 98 20 114/76 94 Nasal Cannula 5.0 Lab Results: Results Past 24 Hours Test 09/26/16 20:03 09/26/16 23:30 09/27/16 06:45 09/27/16 07:16 Range/Units Bedside Glucose 173 142 70-90 mg/dl Troponin I 0.026 0-0.045 ng/ml Sodium Level 139 136-145 mmol/L Potassium Level 4.5 3.5-5.1 mmol/L Chloride Level 99 98-107 mmol/L Carbon Dioxide Level 36 21-32 mmol/L Anion Gap 4.0 3-11 mmol/L Blood Urea Nitrogen 59 7-18 mg/dl Creatinine 2.10 0.60-1.20 mg/dl Est Creatinine Clear Calc Drug Dose 30.4 ml/min Estimated GFR () 26.6 Estimated GFR (Non- 22.9 BUN/Creatinine Ratio 28.2 10-20 Random Glucose 148 70-99 mg/dl Calcium Level 9.1 8.5-10.1 mg/dl Magnesium Level 2.8 1.8-2.4 mg/dl Test 09/27/16 11:24 09/27/16 13:35 09/27/16 16:10 Range/Units Bedside Glucose 164 197 70-90 mg/dl Arterial Blood pH 7.36 7.35-7.45 Arterial Blood Partial Pressure CO2 70 35-46 mmHg Arterial Blood Partial Pressure O2 111 80-95 mm/Hg Arterial Blood HCO3 38 19-24 mmol/L Arterial Blood Oxygen Saturation 97.6 90-95 % Arterial Blood Base Excess 10.3 -9-1.8 mEq/L Arterial Blood Gas Delivery 4.5 L Wing Test POS POS
[2016-09-27 11:46] VITALS: BP 110/70; PULSE 101; TEMP 36.4; O2SAT 100
--- NOTE | 2016-09-27 13:02 | DIAGNOSTIC IMAGING REPORT ---
CHEST ONE VIEW PORTABLE CLINICAL HISTORY: CHF COMPARISON STUDY: 09/24/2016 FINDINGS: The heart remains enlarged. There is a left subclavian implantable defibrillator present. There is continued radiographic evidence of congestive failure/fluid overload. There is no focal pulmonary consolidation.[ IMPRESSION: Radiographic evidence of congestive failure/fluid overload, perhaps minimally progressive when compared the preceding study Electronically signed by: Tee Ulrich M.D. 09/27/2016 1:01 PM Dictated Date/Time: 09/27/2016 1:00 PM
[2016-09-27 13:46] LABS: ARTERIAL BLD GAS O2 SATURATION 97.6 % (90-95); ARTERIAL BLOOD GAS BASE EXCESS 10.3 mEq/L (-9-1.8); ARTERIAL BLOOD GAS HCO3 38 mmol/L (19-24); ARTERIAL BLOOD GAS PO2 111 mm/Hg (80-95); ARTERIAL BLOOD GAS pH 7.36 (7.35-7.45)
[2016-09-27 13:47] LABS: ALLEN TEST POS (POS); O2 ADMINISTRATION 4.5 L
--- NOTE | 2016-09-27 15:13 | CARDIOLOGY PROGRESS NOTE ---
DATE: 09/27/2016 SUBJECTIVE: Ms. Gudino is resting comfortably in bed without complaints of chest pain or dyspnea. Denies PND. OBJECTIVE: VITAL SIGNS: Blood pressure 110/70 with a regular pulse of 80. Respiratory rate is 16. The patient is afebrile at 36.4 degrees Celsius. Saturation 100% on 3 L nasal cannula. NECK: Supple with full carotid upstrokes. No obvious bruits. Jugular venous pressure is difficult to assess. CARDIOVASCULAR: Reveals an irregular rhythm with distant heart sounds. No obvious murmurs. No S3. LUNGS: Note decreased breath sounds at the bases but no rales, rhonchi, or wheezes. ABDOMEN: Obese without bruits. EXTREMITIES: Reveal intact radial artery pulses bilaterally. Pretibial regions are dressed and erythematous bilaterally. LABORATORY DATA: CBC notes hemoglobin of 11.2, hematocrit 38.4, white count 6.4, and platelet count 175,000. Electrolytes note a sodium of 139, potassium 4.5, chloride 99, bicarb 26, BUN 59, creatinine 2.1, glucose 148. Troponin I levels have been normal. ProBNP is elevated at 2119. Weight is 110 kg, down 2.7 kg since admission. EKG notes normal sinus rhythm with first-degree AV block. There is a complete left bundle branch block noted. Chest x-ray notes cardiomegaly and evidence of congestive changes. IMPRESSION AND PLAN: 1. Acute on chronic systolic congestive heart failure - the patient has been changed from intravenous to oral Lasix. Her weight is down compared with admission. She is tolerating carvedilol and digoxin without difficulty. Her lisinopril was discontinued due to renal insufficiency. We could consider addition of low-dose hydralazine and long-acting nitrates. 2. Ischemic cardiomyopathy - ejection fraction of 20-25%. 3. Coronary artery disease - status post distal RCA stents in April 2014. Had patent stents but was found to have non-intervenable severe disease in the mid and distal LAD in February 2015. 4. Single chamber ICD/pacemaker - 02/2015. 5. Paroxysmal atrial fibrillation - stable on Eliquis. 6. Left bundle branch block. 7. Peripheral vascular disease. 8. Chronic renal failure. 9. Diabetes mellitus.
[2016-09-27 16:32] VITALS: BP 116/74; PULSE 101; TEMP 36.7; O2SAT 99
[2016-09-27] MEDS ORDERED: FUROSEMIDE INJ 40 MG in SYRINGE 0 ML IV ONE (18:45)
[2016-09-27 20:00] VITALS: BP 114/74; PULSE 101; TEMP 36.4; O2SAT 94
[2016-09-27] MEDS: SIMVASTATIN 20 MG TAB PO SCH (20:02)
[2016-09-28] VITALS (8 sets, daily range): BP systolic 96–114; BP diastolic 56–74; PULSE 86–105; TEMP 36.3–36.9; O2SAT 96–100
[2016-09-28] MEDS: PROMETHAZINE HCL INJ 12.5 MG in SODIUM CHLORIDE 0.9% 50ML 50 ML IV PRN (04:58)
[2016-09-28] MEDS: TRAMADOL HCL 50 MG TAB PO PRN (05:47)
[2016-09-28 07:37] LABS: BUN/CREATININE RATIO 29.2 (10-20); CREATININE 1.9 mg/dl (0.60-1.20); MAGNESIUM 2.5 mg/dl (1.8-2.4); POTASSIUM 4.1 mmol/L (3.5-5.1)
[2016-09-28] MEDS: CEFTRIAXONE SOD INJ 1 GM in DEXTROSE 5% ADD-VANTAGE 50ML 50 ML IV SCH (08:02)
[2016-09-28] MEDS: ASPIRIN 81 MG ECTAB PO SCH (08:02)
[2016-09-28] MEDS: CARVEDILOL 12.5 MG TAB PO SCH ×2 (08:02→20:46)
[2016-09-28] MEDS: AMIODARONE 200 MG TAB PO SCH (08:02)
[2016-09-28] MEDS: FUROSEMIDE 80 MG TAB PO SCH (08:03)
[2016-09-28] MEDS: APIXABAN 2.5 MG TAB PO SCH ×2 (08:03→20:46)
[2016-09-28] MEDS: GABAPENTIN 100 MG CAP PO SCH ×3 (08:03→20:47)
[2016-09-28] MEDS: SENNA 8.6 MG TAB PO SCH ×2 (08:03→20:46)
[2016-09-28] MEDS: INSULIN ASPART 100 UNITS/ML 3 ML PEN SC SCH ×4 (08:06→20:50)
--- NOTE | 2016-09-28 11:17 | CARDIOLOGY PROGRESS NOTE ---
DATE: 09/28/2016 SUBJECTIVE: Mrs. Gudino is resting comfortably in a bedside chair without complaints of chest pain or dyspnea. No complaints of discomfort in her left lower extremity. OBJECTIVE: VITAL SIGNS: Blood pressure is 110/70 with an irregular pulse of 100, respiratory rate is 18, the patient is afebrile at 36.3 degrees Celsius and saturations are 96% on three liters nasal cannula. NECK: Supple with full carotid upstrokes. No obvious bruits. Jugular venous pressure is difficult to assess. CARDIOVASCULAR: Reveals an irregular rhythm with distant heart sounds. No obvious murmurs. No S3. LUNGS: Note decreased breath sounds at the bases; but no rales, rhonchi or wheezes. ABDOMEN: Obese without bruits. EXTREMITIES: Reveal intact radial artery pulses bilaterally. Pretibial regions are dressed. Erythema is noted. DATA: Electrolytes note a sodium of 139, potassium 4.1, chloride 97, bicarbonate 38, BUN 55, creatinine 1.9 and a glucose of 163. BNP this morning is 2009. EKG notes normal sinus rhythm with first degree AV block and a complete left bundle branch block. IMPRESSION AND PLAN: 1. Acute on chronic systolic congestive heart failure - the patient may benefit from intravenous Lasix for another 24-48 hours. Would continue carvedilol and digoxin as you are. Lisinopril was discontinued previously due to renal insufficiency. We could consider addition of low-dose hydralazine and long-acting nitrates. 2. Ischemic cardiomyopathy -- ejection fraction of 20-25%. 3. Coronary artery disease -- status post distal right coronary artery stents in April 2014. The stents were patent at the time of cardiac catheterization in February 2015. However, non intervenable severe disease was noted in the mid and distal left anterior descending. 4. Single chamber implantable cardioverter defibrillator/pacemaker -- in February 2015. 5. Paroxysmal atrial fibrillation -- continue Eliquis. 6. Left bundle branch block. 7. Peripheral artery disease. 8. Chronic renal failure. 9. Diabetes mellitus. MTDD
[2016-09-28] MEDS: DIGOXIN 0.125 MG TAB PO SCH (16:20)
[2016-09-28] MEDS ORDERED: ISOSORBIDE MONONITRATE 30 MG TABCR PO ONE (17:15)
--- NOTE | 2016-09-28 17:17 | Progress Note ---
Internal Med Progress Note Date of Service: Sep 28, 2016. Provider Documentation: SUBJECTIVE: Patient is sitting in the chair and is in no apparent distress. Breathing comfortably, Denies any chest pain/pressure. Nausea in better today. No other new change or complaint. OBJECTIVE: Vital Signs-as noted below Examination: General Appearance:Obese, Sitting in the chair ans is in no apparent distress Head: normocephalic, Atraumatic Eyes: normal inspection, EOMI, PERRL Neck: supple, Trachea midline, No JVD Respiratory/Chest: B/L Moderate air entry, Decreased BS at lung bases. No accessory muscle use. Cardiovascular: Irregularly Irregular, + systolic murmur, Normal S1, S2. Abdomen/GI:Soft, Non tender, Bowel sounds present Extremities/Musculoskeletal:B/L LE edema, erythema, in bandage Neurologic/Psych:AAOX3, grossly no focal neurological deficits Skin: B/L LE erythema, chronic venous stasis, several superficial venous stasis ulcers in bandage Lab data as noted below. ASSESSMENT & PLAN: Acute Hypoxemic Respiratory Failure: Caused by Acute on Chronic Systolic CHF. Clinically improving. Last Echo: LVEF: 20-25%. S/P single chamber defibrillator/pacemaker Likely to have underlying sleep apnea/Obesity hypoventilation syndrome -Continue carvedilol, digoxin -No CRISTIN or ARB due to renal insufficiency. -Daily weight, I/Os -Monitoring electrolytes -Low salt diet/Fluid restriction -Oxygen requirement is going up -Continue I/V Lasix and will switch to oral Lasix upon discharge. -Recheck CXR: mildly progressive CHF -Added Imdur 30 mg daily. -Needs 2 step prior to discharge -Noted Cardiology consult. Thanks for input. QTC prolongation: Off Zofran -Avoids med that cause QT prolongation Lower Extremities Venous Stasis Ulcers: Continue wound care -Wound Culture from 09/10/16:GROUP B BETA STREP -Continue IV Ceftriaxone (day # 6) for now -Wound cultures:Strep, follow sensitivities.pending -Needs follow-up with [facility]ound [facility] after discharge Hypermagnesemia: Holding PO magnesium -Monitor levels Diarrhea: Resolved History CAD: Denies chest pain, Troponin negative -Continue aspirin, carvedilol, statin Atrial Fibrillation: Rate controlled -Continue carvedilol, digoxin, amiodarone, apixaban. -Digoxin levels:wnl JASON on CKD Stage IV: Serum creatinine stable -Monitoring renal function -Avoid any nephrotoxic agents Diabetes Type II: Holding repaglinide -Hgb A1C: 7.7 -Continue ISS, accu checks Dyslipidemia: Continue simvastatin DVT Prophylaxis: Apixaban. Ambulate as able. Resuscitation StatusFull code Disposition: Continue monitoring in Tele. Plan to DC to [facility] when stable Follow up with PCP Dr. Lola Jean. Vital Signs: Date Time Temp Pulse Resp B/P Pulse Ox O2 Delivery O2 Flow Rate FiO2 09/28/16 16:20 112 09/28/16 15:30 Nasal Cannula 3.0 09/28/16 14:51 36.3 102 16 110/56 96 3.0 09/28/16 11:45 Nasal Cannula 3.0 09/28/16 11:23 36.3 88 18 96/60 97 Nasal Cannula 3.0 09/28/16 07:45 Nasal Cannula 3.0 09/28/16 07:28 36.3 105 18 109/69 96 3.0 09/28/16 04:06 36.9 86 16 109/68 97 09/28/16 04:00 Nasal Cannula 3.0 09/28/16 00:45 102 16 99/66 97 Nasal Cannula 3.0 09/28/16 00:00 36.5 96 16 104/71 97 Nasal Cannula 3.0 09/28/16 00:00 Nasal Cannula 3.0 09/27/16 20:00 36.4 101 20 114/74 94 Nasal Cannula 4.0 09/27/16 20:00 Nasal Cannula 4.0 Lab Results: Results Past 24 Hours Test 09/27/16 20:51 09/28/16 06:49 09/28/16 07:49 09/28/16 11:35 Range/Units Bedside Glucose 184 163 241 70-90 mg/dl Sodium Level 139 136-145 mmol/L Potassium Level 4.1 3.5-5.1 mmol/L Chloride Level 97 98-107 mmol/L Carbon Dioxide Level 38 21-32 mmol/L Anion Gap 4.0 3-11 mmol/L Blood Urea Nitrogen 55 7-18 mg/dl Creatinine 1.90 0.60-1.20 mg/dl Est Creatinine Clear Calc Drug Dose 33.5 ml/min Estimated GFR () 30.0 Estimated GFR (Non- 25.9 BUN/Creatinine Ratio 29.2 10-20 Random Glucose 163 70-99 mg/dl Calcium Level 9.0 8.5-10.1 mg/dl Magnesium Level 2.5 1.8-2.4 mg/dl Pro-B-Type Natriuretic Peptide 2008 0-900 pg/ml Test 09/28/16 16:29 Range/Units Bedside Glucose 135 70-90 mg/dl
[2016-09-28] MEDS: SIMVASTATIN 20 MG TAB PO SCH (20:46)
[2016-09-29] VITALS (11 sets, daily range): BP systolic 95–133; BP diastolic 62–74; PULSE 75–105; TEMP 36.3–36.7; O2SAT 93–98
[2016-09-29] MEDS: ACETAMINOPHEN 325 MG TAB PO PRN (01:27)
[2016-09-29 07:17] LABS: CREATININE 1.8 mg/dl (0.60-1.20); MAGNESIUM 2.6 mg/dl (1.8-2.4); POTASSIUM 4.3 mmol/L (3.5-5.1)
[2016-09-29 07:43] LABS: HEMATOCRIT 35.7 % (37-47); MEAN CELL VOLUME 96.2 fL (80-100); MEAN CORPUSCULAR HEMOGLOBIN 27.2 pg (25-34); MEAN CORPUSCULAR HGB CONC 28.3 g/dl (32-36); MEAN PLATELET VOLUME 9.2 fL (7.4-10.4); PLATELET COUNT 205 K/uL (130-400); RED BLOOD COUNT 3.71 M/uL (4.2-5.4); WHITE BLOOD COUNT 6.27 K/uL (4.8-10.8)
[2016-09-29 07:53] LABS: ANISOCYTOSIS PRESENT; BASO % 0.5 %; BASO ABS # 0.03 K/uL (0-0.2); COMPLETE YES; EOS % 5.1 %; HYPOCHROMIA PRESENT; IG% 0.2 %; LYMPH % 5.7 %; LYMPH ABS # 0.36 K/uL (1.2-3.4); MONO % 8.5 %; STOMATOCYTE 1+
[2016-09-29] MEDS: CEFTRIAXONE SOD INJ 1 GM in DEXTROSE 5% ADD-VANTAGE 50ML 50 ML IV SCH (08:43)
[2016-09-29] MEDS: AMIODARONE 200 MG TAB PO SCH (08:44)
[2016-09-29] MEDS: FUROSEMIDE INJ 40 MG in SYRINGE 0 ML IV SCH (08:44)
[2016-09-29] MEDS: CARVEDILOL 12.5 MG TAB PO SCH ×2 (08:44→21:09)
[2016-09-29] MEDS: APIXABAN 2.5 MG TAB PO SCH ×2 (08:45→21:09)
[2016-09-29] MEDS: ASPIRIN 81 MG ECTAB PO SCH (08:45)
[2016-09-29] MEDS: GABAPENTIN 100 MG CAP PO SCH ×3 (08:45→21:09)
[2016-09-29] MEDS: ISOSORBIDE MONONITRATE 30 MG TABCR PO SCH (08:45)
[2016-09-29] MEDS: SENNA 8.6 MG TAB PO SCH ×2 (08:45→21:09)
[2016-09-29] MEDS: INSULIN ASPART 100 UNITS/ML 3 ML PEN SC SCH ×4 (08:47→21:07)
[2016-09-29] MEDS: TRAMADOL HCL 50 MG TAB PO PRN ×2 (11:41→23:28)
[2016-09-29] MEDS ORDERED: OXYCODONE HCL IR 5 MG TAB (IMMEDIATE RELEASE) PO PRN (12:30)
--- NOTE | 2016-09-29 12:33 | Progress Note ---
Internal Med Progress Note Date of Service: Sep 29, 2016. Provider Documentation: SUBJECTIVE: Patient is sitting in the chair and is in no apparent distress. Breathing comfortably, Denies any chest pain/pressure. Denies any nausea today.No other new change or complaint. OBJECTIVE: Vital Signs-as noted below Examination: General Appearance:Obese, Sitting in the chair ans is in no apparent distress Head: normocephalic, Atraumatic Eyes: normal inspection, EOMI, PERRL Neck: supple, Trachea midline, No JVD Respiratory/Chest: B/L Moderate air entry, Decreased BS at lung bases. No accessory muscle use. Cardiovascular: Irregularly Irregular, + systolic murmur, Normal S1, S2. Abdomen/GI:Soft, Non tender, Bowel sounds present Extremities/Musculoskeletal:B/L LE edema, erythema, in bandage Neurologic/Psych:AAOX3, grossly no focal neurological deficits Skin: B/L LE erythema, chronic venous stasis, several superficial venous stasis ulcers in bandage Checked the wounds and they are healing well with no discharge. Lab data as noted below. ASSESSMENT & PLAN: Acute Hypoxemic Respiratory Failure: Caused by Acute on Chronic Systolic CHF. Clinically improving. Last Echo: LVEF: 20-25%. S/P single chamber defibrillator/pacemaker Likely to have underlying sleep apnea/Obesity hypoventilation syndrome -Continue carvedilol, digoxin -No CRISTIN or ARB due to renal insufficiency. -Daily weight, I/Os -Monitoring electrolytes -Low salt diet/Fluid restriction -Oxygen requirement is going up -Continue I/V Lasix and will switch to oral Lasix upon discharge. -Recheck CXR: mildly progressive CHF -Added Imdur 30 mg daily. -Needs 2 step prior to discharge -Noted Cardiology consult. Thanks for input. QTC prolongation: Off Zofran -Avoids med that cause QT prolongation Lower Extremities Venous Stasis Ulcers: Continue wound care -Wound Culture from 09/10/16:GROUP B BETA STREP -Continue IV Ceftriaxone (day # 8) for now -Wound cultures:Strep, follow sensitivities.pending -Needs follow-up with Wound Clinic after discharge Hypermagnesemia: Holding PO magnesium -Monitor levels Diarrhea: Resolved History CAD: Denies chest pain, Troponin negative -Continue aspirin, carvedilol, statin Atrial Fibrillation: Rate controlled -Continue carvedilol, digoxin, amiodarone, apixaban. -Digoxin levels:wnl JASON on CKD Stage IV: Serum creatinine stable -Monitoring renal function -Avoid any nephrotoxic agents Diabetes Type II: Holding repaglinide -Hgb A1C: 7.7 -Continue ISS, accu checks Dyslipidemia: Continue simvastatin DVT Prophylaxis: Apixaban. Ambulate as able. Resuscitation Status : Full code Disposition: Continue monitoring in Tele. Plan to DC to [place] [facility] when stable Follow up with PCP Dr. Lola Jean. Vital Signs: Date Time Temp Pulse Resp B/P Pulse Ox O2 Delivery O2 Flow Rate FiO2 09/29/16 11:55 Nasal Cannula 3.0 09/29/16 11:30 36.4 105 20 114/69 97 Nasal Cannula 3.0 09/29/16 07:45 Nasal Cannula 3.0 09/29/16 07:12 36.3 95 20 95/62 98 Nasal Cannula 2.0 09/29/16 04:32 36.7 75 18 100/62 93 Nasal Cannula 3.0 09/29/16 04:00 Nasal Cannula 3.0 09/29/16 00:01 Nasal Cannula 3.0 09/28/16 23:11 36.4 99 16 114/72 99 Nasal Cannula 3.0 09/28/16 20:00 Nasal Cannula 3.0 09/28/16 19:16 36.6 103 18 110/74 100 Nasal Cannula 3.0 09/28/16 16:20 112 09/28/16 15:30 Nasal Cannula 3.0 09/28/16 14:51 36.3 102 16 110/56 96 3.0 Lab Results: Results Past 24 Hours Test 09/28/16 16:29 09/28/16 20:20 09/29/16 06:15 09/29/16 07:11 Range/Units Bedside Glucose 135 163 153 70-90 mg/dl White Blood Count 6.27 4.8-10.8 K/uL Red Blood Count 3.71 4.2-5.4 M/uL Hemoglobin 10.1 12.0-16.0 g/dL Hematocrit 35.7 37-47 % Mean Corpuscular Volume 96.2 80-100 fL Mean Corpuscular Hemoglobin 27.2 25-34 pg Mean Corpuscular Hemoglobin Concent 28.3 32-36 g/dl Platelet Count 205 130-400 K/uL Mean Platelet Volume 9.2 7.4-10.4 fL Neutrophils (%) (Auto) 80.0 % Lymphocytes (%) (Auto) 5.7 % Monocytes (%) (Auto) 8.5 % Eosinophils (%) (Auto) 5.1 % Basophils (%) (Auto) 0.5 % Neutrophils # (Auto) 5.02 1.4-6.5 K/uL Lymphocytes # (Auto) 0.36 1.2-3.4 K/uL Monocytes # (Auto) 0.53 0.11-0.59 K/uL Eosinophils # (Auto) 0.32 0-0.5 K/uL Basophils # (Auto) 0.03 0-0.2 K/uL RDW Standard Deviation 65.8 36.4-46.3 fL RDW Coefficient of Variation 18.9 11.5-14.5 % Immature Granulocyte % (Auto) 0.2 % Immature Granulocyte # (Auto) 0.01 0.00-0.02 K/uL Hypochromasia PRESENT Anisocytosis PRESENT Stomatocytes 1+ Sodium Level 142 136-145 mmol/L Potassium Level 4.3 3.5-5.1 mmol/L Chloride Level 99 98-107 mmol/L Carbon Dioxide Level 39 21-32 mmol/L Anion Gap 4.0 3-11 mmol/L Blood Urea Nitrogen 59 7-18 mg/dl Creatinine 1.80 0.60-1.20 mg/dl Est Creatinine Clear Calc Drug Dose 35.1 ml/min Estimated GFR () 32.0 Estimated GFR (Non- 27.6 BUN/Creatinine Ratio 33.0 10-20 Random Glucose 143 70-99 mg/dl Calcium Level 9.0 8.5-10.1 mg/dl Magnesium Level 2.6 1.8-2.4 mg/dl Test 09/29/16 11:15 Range/Units Bedside Glucose 300 70-90 mg/dl
--- NOTE | 2016-09-29 12:45 | CARDIOLOGY PROGRESS NOTE ---
DATE: 09/29/2016 SUBJECTIVE: Mrs. Gudino is resting comfortably in the bedside chair without complaints of chest pain or dyspnea. She is anxious for hospital discharge. OBJECTIVE: VITAL SIGNS: Blood pressure is 114/70 with a regular pulse of 80. Respiratory rate is 20. The patient is afebrile at 36.4 degrees Celsius. Saturation is 97% on 3 liters nasal cannula. NECK: Supple with full carotid upstrokes. Jugular venous pressure is elevated at 10 cm of water at 90 degrees. CARDIOVASCULAR: Reveals a regular rhythm with distant heart sounds. No obvious murmurs. No S3. LUNGS: Note decreased breath sounds at the bases but no rales, rhonchi, or wheezes. ABDOMEN: Obese without bruits. EXTREMITIES: Reveal intact radial artery pulses bilaterally. Pretibial regions are dressed with local erythema noted. DATA: CBC notes hemoglobin of 10.1, hematocrit 35.7, white count 6.2, platelet count 205,000. Electrolytes note a sodium of 142, potassium 4.3, chloride 99, bicarb 39, BUN 59, creatinine 1.8, glucose 143. patient monitor notes paroxysms of atrial fibrillation and flutter. Currently in sinus rhythm. IMPRESSION AND PLAN: 1. Acute on chronic systolic congestive heart failure -- patient back on intravenous furosemide. Tolerating carvedilol and digoxin without difficulty. As before, lisinopril discontinued due to renal insufficiency. We could consider trial of low dose hydralazine and long-acting nitrates. 2. Ischemic cardiomyopathy -- ejection fraction of 20-25%. 3. Coronary artery disease -- status post distal RCA stents in April 2014. Stents patent at the time of catheterization in February 2015, however, nonintervenable severe disease noted in the mid and distal LAD at that time. 4. Single chamber ICD/pacemaker - February 2015. 5. Paroxysmal atrial fibrillation -- continue Eliquis. 6. Left bundle branch block. 7. Peripheral vascular disease.
[2016-09-29] MEDS: SIMVASTATIN 20 MG TAB PO SCH (21:09)
[2016-09-29] MEDS: MICONAZOLE NITRATE POWDER 43 GM EXT PRN (21:14)
[2016-09-30] VITALS (9 sets, daily range): BP systolic 95–121; BP diastolic 59–76; PULSE 64–103; TEMP 36.3–36.6; O2SAT 93–97
[2016-09-30 06:45] LABS: CREATININE 1.7 mg/dl (0.60-1.20); POTASSIUM 4.1 mmol/L (3.5-5.1)
--- NOTE | 2016-09-30 07:52 | DIAGNOSTIC IMAGING REPORT ---
CHEST ONE VIEW PORTABLE HISTORY: Short of breath. Follow Up CHF COMPARISON: Chest 09/27/2016. FINDINGS: The heart remains mildly enlarged. Trace bilateral pleural effusions and mild pulmonary edema remains unchanged. Left-sided pacemaker/defibrillator. No new focal lung consolidations. No pneumothorax. IMPRESSION: No change in the pulmonary edema and trace bilateral pleural effusions. Electronically signed by: Marquez Clark M.D. 09/30/2016 7:50 AM Dictated Date/Time: 09/30/2016 7:49 AM
[2016-09-30] MEDS: AMIODARONE 200 MG TAB PO SCH (08:02)
[2016-09-30] MEDS: GABAPENTIN 100 MG CAP PO SCH ×3 (08:02→20:30)
[2016-09-30] MEDS: CARVEDILOL 12.5 MG TAB PO SCH ×2 (08:02→20:30)
[2016-09-30] MEDS: SENNA 8.6 MG TAB PO SCH ×2 (08:02→20:30)
[2016-09-30] MEDS: CEFTRIAXONE SOD INJ 1 GM in DEXTROSE 5% ADD-VANTAGE 50ML 50 ML IV SCH (08:02)
[2016-09-30] MEDS: ISOSORBIDE MONONITRATE 30 MG TABCR PO SCH (08:02)
[2016-09-30] MEDS: ASPIRIN 81 MG ECTAB PO SCH (08:02)
[2016-09-30] MEDS: APIXABAN 2.5 MG TAB PO SCH ×2 (08:02→20:31)
[2016-09-30] MEDS: INSULIN ASPART 100 UNITS/ML 3 ML PEN SC SCH ×4 (08:08→20:53)
[2016-09-30] MEDS: FUROSEMIDE INJ 40 MG in SYRINGE 0 ML IV SCH (08:10)
[2016-09-30 08:40] LABS: HEMATOCRIT 35.7 % (37-47); MEAN CORPUSCULAR HEMOGLOBIN 27.7 pg (25-34); MEAN CORPUSCULAR HGB CONC 28.9 g/dl (32-36); MEAN PLATELET VOLUME 9.4 fL (7.4-10.4); PLATELET COUNT 213 K/uL (130-400); RED BLOOD COUNT 3.72 M/uL (4.2-5.4); WHITE BLOOD COUNT 6.23 K/uL (4.8-10.8)
[2016-09-30 08:44] LABS: ANISOCYTOSIS PRESENT; BASO % 0.5 %; BASO ABS # 0.03 K/uL (0-0.2); COMPLETE YES; EOS % 4.7 %; IG% 0.3 %; LYMPH % 7.4 %; LYMPH ABS # 0.46 K/uL (1.2-3.4); MONO % 8.2 %; NEUT % 78.9 %; POLYCHROMASIA 1+
--- NOTE | 2016-09-30 10:01 | CARDIOLOGY PROGRESS NOTE ---
DATE: 09/30/2016 SUBJECTIVE: Mrs. Gudino is resting comfortably in bed without complaints of chest pain or dyspnea. OBJECTIVE: VITAL SIGNS: Blood pressure 106/60 with a regular pulse of 80. Respiratory rate is 22. The patient is afebrile at 36.4 degrees Celsius. Saturation 96% on 3 liters nasal cannula. NECK: Supple with full carotid upstrokes. No obvious bruits. Jugular venous pressure is 8 cm of water at 90 degrees. CARDIOVASCULAR: Reveals a regular rhythm with distant heart sounds. No obvious murmurs. LUNGS: Note decreased breath sounds at the bases but no rales, rhonchi, or wheezes. ABDOMEN: Obese without bruits. EXTREMITIES: Reveal intact radial artery pulses bilaterally. No change in the pretibial regions. DATA: CBC notes hemoglobin of 10.3, hematocrit 35.7, white count 6.2, platelet count 213,000. Electrolytes note a sodium of 140, potassium 4.1, chloride 98, bicarb 39, BUN 60, creatinine 1.7, glucose 135. shelter monitor notes paroxysms of atrial fibrillation. IMPRESSION AND PLAN: 1. Acute on chronic systolic congestive heart failure -- patient continues to improve on intravenous diuretics. We may consider a trial of low dose hydralazine and long-acting nitrate as she is unable to take lisinopril due to renal insufficiency. 2. Ischemic cardiomyopathy -- ejection fraction of 20%-25%. 3. Coronary artery disease -- status post distal RCA stents April 2014. Stents were patent at the time of cardiac catheterization February 2015. She is also found to have nonintervenable severe disease in her mid and distal LAD. 4. Single chamber ICD/pacemaker -- February 2015. 5. Paroxysmal atrial fibrillation -- tolerating Eliquis. 6. Left bundle branch block. 7. Peripheral vascular disease.
[2016-09-30] MEDS: POLYETHYLENE (MIRALAX) 17 GM PACK PO PRN (10:10)
[2016-09-30] MEDS: DIGOXIN 0.125 MG TAB PO SCH (16:58)
--- NOTE | 2016-09-30 17:04 | Progress Note ---
Internal Med Progress Note Date of Service: Sep 30, 2016. Provider Documentation: SUBJECTIVE: Patient is sitting in the chair and is in no apparent distress. Breathing comfortably, Denies any chest pain/pressure. Denies any nausea today.No other new change or complaint. OBJECTIVE: Vital Signs-as noted below Examination: General Appearance:Obese, Sitting in the chair ans is in no apparent distress Head: normocephalic, Atraumatic Eyes: normal inspection, EOMI, PERRL Neck: supple, Trachea midline, No JVD Respiratory/Chest: B/L Moderate air entry, Decreased BS at lung bases. No accessory muscle use. Cardiovascular: Irregularly Irregular, + systolic murmur, Normal S1, S2. Abdomen/GI:Soft, Non tender, Bowel sounds present Extremities/Musculoskeletal:B/L LE edema, erythema, in bandage Neurologic/Psych:AAOX3, grossly no focal neurological deficits Skin: B/L LE erythema, chronic venous stasis, several superficial venous stasis ulcers in bandage Checked the wounds and they are healing well with no discharge. Lab data as noted below. ASSESSMENT & PLAN: Chest X-Ray (09/30/2016) FINDINGS: The heart remains mildly enlarged. Trace bilateral pleural effusions and mild pulmonary edema remains unchanged. Left-sided pacemaker/defibrillator. No new focal lung consolidations. No pneumothorax. IMPRESSION: No change in the pulmonary edema and trace bilateral pleural effusions. Acute Hypoxemic Respiratory Failure: Caused by Acute on Chronic Systolic CHF. Clinically improving. Last Echo: LVEF: 20-25%. S/P single chamber defibrillator/pacemaker Likely to have underlying sleep apnea/Obesity hypoventilation syndrome -Continue carvedilol, digoxin -No CRISTIN or ARB due to renal insufficiency. -Daily weight, I/Os -Monitoring electrolytes -Low salt diet/Fluid restriction -Oxygen requirement is going up -Continue I/V Lasix and will switch to oral Lasix upon discharge. -Recheck CXR: mildly progressive CHF -Continue Imdur 30 mg daily. -Needs 2 step prior to discharge -Noted Cardiology consult. Thanks for input. QTC prolongation: Off Zofran -Avoids med that cause QT prolongation Lower Extremities Venous Stasis Ulcers: Continue wound care -Wound Culture from 09/10/16:GROUP B BETA STREP -Continue IV Ceftriaxone (day # 9) for now -Wound cultures:Strep, follow sensitivities.pending -Needs follow-up with Wound Clinic after discharge Hypermagnesemia: Holding PO magnesium -Monitor levels Diarrhea: Resolved History CAD: Denies chest pain, Troponin negative -Continue aspirin, carvedilol, statin Atrial Fibrillation: Rate controlled -Continue carvedilol, digoxin, amiodarone, apixaban. -Digoxin levels:wnl JASON on CKD Stage IV: Serum creatinine stable -Monitoring renal function -Avoid any nephrotoxic agents Diabetes Type II: Holding repaglinide -Hgb A1C: 7.7 -Continue ISS, accu checks Dyslipidemia: Continue simvastatin DVT Prophylaxis: Apixaban. Ambulate as able. Resuscitation Status : Full code Disposition: Continue monitoring in Tele. Plan to DC to [place] [facility] [place] when stable Follow up with PCP Dr. Lola Jean. Vital Signs: Date Time Temp Pulse Resp B/P Pulse Ox O2 Delivery O2 Flow Rate FiO2 09/30/16 16:58 76 09/30/16 14:56 36.5 89 16 95/59 97 Nasal Cannula 3.0 09/30/16 12:00 Nasal Cannula 3.0 09/30/16 11:35 36.5 87 22 105/64 97 Nasal Cannula 3.0 09/30/16 07:45 Nasal Cannula 3.0 09/30/16 07:21 36.4 98 22 106/68 96 3.0 09/30/16 04:06 36.3 64 18 118/76 94 Nasal Cannula 3.0 09/30/16 04:00 Nasal Cannula 3.0 09/30/16 00:10 Nasal Cannula 3.0 09/29/16 23:42 99 133/69 09/29/16 23:41 36.4 77 16 111/62 95 Nasal Cannula 3.0 09/29/16 21:03 101 120/74 09/29/16 20:00 97 Nasal Cannula 3.0 09/29/16 19:15 36.5 101 20 111/74 97 Nasal Cannula 3.0 Lab Results: Results Past 24 Hours Test 09/29/16 20:18 09/30/16 05:45 09/30/16 07:32 09/30/16 11:24 Range/Units Bedside Glucose 188 137 223 70-90 mg/dl White Blood Count 6.23 4.8-10.8 K/uL Red Blood Count 3.72 4.2-5.4 M/uL Hemoglobin 10.3 12.0-16.0 g/dL Hematocrit 35.7 37-47 % Mean Corpuscular Volume 96.0 80-100 fL Mean Corpuscular Hemoglobin 27.7 25-34 pg Mean Corpuscular Hemoglobin Concent 28.9 32-36 g/dl Platelet Count 213 130-400 K/uL Mean Platelet Volume 9.4 7.4-10.4 fL Neutrophils (%) (Auto) 78.9 % Lymphocytes (%) (Auto) 7.4 % Monocytes (%) (Auto) 8.2 % Eosinophils (%) (Auto) 4.7 % Basophils (%) (Auto) 0.5 % Neutrophils # (Auto) 4.92 1.4-6.5 K/uL Lymphocytes # (Auto) 0.46 1.2-3.4 K/uL Monocytes # (Auto) 0.51 0.11-0.59 K/uL Eosinophils # (Auto) 0.29 0-0.5 K/uL Basophils # (Auto) 0.03 0-0.2 K/uL RDW Standard Deviation 66.6 36.4-46.3 fL RDW Coefficient of Variation 19.0 11.5-14.5 % Immature Granulocyte % (Auto) 0.3 % Immature Granulocyte # (Auto) 0.02 0.00-0.02 K/uL Polychromasia 1+ Anisocytosis PRESENT Sodium Level 140 136-145 mmol/L Potassium Level 4.1 3.5-5.1 mmol/L Chloride Level 98 98-107 mmol/L Carbon Dioxide Level 39 21-32 mmol/L Anion Gap 3.0 3-11 mmol/L Blood Urea Nitrogen 60 7-18 mg/dl Creatinine 1.70 0.60-1.20 mg/dl Est Creatinine Clear Calc Drug Dose 37.0 ml/min Estimated GFR () 34.3 Estimated GFR (Non- 29.6 BUN/Creatinine Ratio 35.0 10-20 Random Glucose 135 70-99 mg/dl Calcium Level 9.0 8.5-10.1 mg/dl Digoxin Level 0.7 0.8-2.0 ng/ml Test 09/30/16 15:49 Range/Units Bedside Glucose 148 70-90 mg/dl
[2016-09-30] MEDS: BISACODYL 10 MG SUPP PR PRN (20:22)
[2016-09-30] MEDS: SIMVASTATIN 20 MG TAB PO SCH (20:31)
[2016-10-01 04:10] VITALS: BP 111/75; PULSE 107; TEMP 37; O2SAT 96
[2016-10-01 06:23] LABS: BASO % 0.3 %; BASO ABS # 0.02 K/uL (0-0.2); COMPLETE YES; EOS % 3.3 %; HEMATOCRIT 37.3 % (37-47); IG% 0.1 %; LYMPH % 5.2 %; LYMPH ABS # 0.36 K/uL (1.2-3.4); MEAN CELL VOLUME 95.4 fL (80-100); MEAN CORPUSCULAR HEMOGLOBIN 27.1 pg (25-34); MEAN CORPUSCULAR HGB CONC 28.4 g/dl (32-36); MEAN PLATELET VOLUME 8.8 fL (7.4-10.4); MONO % 9.9 %; NEUT % 81.2 %; PLATELET COUNT 203 K/uL (130-400); RED BLOOD COUNT 3.91 M/uL (4.2-5.4); WHITE BLOOD COUNT 6.88 K/uL (4.8-10.8)
[2016-10-01 06:42] LABS: BUN/CREATININE RATIO 31.8 (10-20); CALCIUM 9.5 mg/dl (8.5-10.1); CREATININE 1.7 mg/dl (0.60-1.20); POTASSIUM 4.2 mmol/L (3.5-5.1)
[2016-10-01 07:52] VITALS: BP 108/76; PULSE 78; TEMP 36.6; O2SAT 95
[2016-10-01] MEDS: ASPIRIN 81 MG ECTAB PO SCH (08:46)
[2016-10-01] MEDS: ISOSORBIDE MONONITRATE 30 MG TABCR PO SCH (08:46)
[2016-10-01] MEDS: CEFTRIAXONE SOD INJ 1 GM in DEXTROSE 5% ADD-VANTAGE 50ML 50 ML IV SCH (08:46)
[2016-10-01] MEDS: CARVEDILOL 12.5 MG TAB PO SCH (08:46)
[2016-10-01] MEDS: AMIODARONE 200 MG TAB PO SCH (08:47)
[2016-10-01] MEDS: GABAPENTIN 100 MG CAP PO SCH ×2 (08:47→14:23)
[2016-10-01] MEDS: APIXABAN 2.5 MG TAB PO SCH (08:47)
[2016-10-01] MEDS: SENNA 8.6 MG TAB PO SCH (08:47)
[2016-10-01] MEDS: FUROSEMIDE INJ 40 MG in SYRINGE 0 ML IV SCH (08:58)
[2016-10-01] MEDS: INSULIN ASPART 100 UNITS/ML 3 ML PEN SC SCH ×3 (09:04→16:30)
--- NOTE | 2016-10-01 09:35 | CARDIOLOGY PROGRESS NOTE ---
DATE: 10/01/2016 SUBJECTIVE: Mrs. Gudino is resting comfortably in bed without complaints of chest pain or dyspnea. She is anxious for hospital discharge. OBJECTIVE: VITAL SIGNS: Blood pressure is 108/76 with a heart rate of 80 bpm. Respiratory rate is 16. The patient is afebrile at 36.6 degrees Celsius. Saturation is 95% on 3 liters nasal cannula. NECK: Supple with full carotid upstrokes. No obvious bruits. Jugular venous pressure is difficult to assess. CARDIOVASCULAR: Reveals a regular rhythm with normal S1 and S2. Heart sounds are distant. No obvious murmurs. No S3. LUNGS: Note decreased breath sounds at the bases but no rales, rhonchi, or wheezes. ABDOMEN: Obese without bruits. EXTREMITIES: Reveal intact radial artery pulses bilaterally. Pretibial regions remain stable. DATA: CBC notes hemoglobin of 10.6, hematocrit 37.3, white count 6.8, and platelet count 203,000. Electrolytes note a sodium of 141, potassium 4.2, chloride 98, bicarb 39, BUN 54, creatinine 1.7, glucose 200. BNP is 1738. playground monitor notes an occasional PVC. IMPRESSION AND PLAN: 1. Acute on chronic systolic congestive heart failure - improving with intravenous diuretics. As before, may consider a trial of low dose hydralazine and long-acting nitrates as she is unable to take lisinopril secondary to renal insufficiency. 2. Ischemic cardiomyopathy - ejection fraction 20-25%. 3. Coronary artery disease - status post distal right coronary artery stents in April 2014. She states stents patent in February 2015. Found to have nonintervenable severe disease in the mid and distal left anterior descending artery in February 2015. 4. Single chamber implantable cardioverter defibrillator/pacemaker - February 2015. 5. Paroxysmal atrial fibrillation --continue Eliquis. 6. Peripheral vascular disease. MTDD
--- NOTE | 2016-10-01 10:39 | Progress Note ---
Internal Med Progress Note Date of Service: Oct 01, 2016. Provider Documentation: SUBJECTIVE: Patient is sitting in the bed and is in no apparent distress. Breathing comfortably, Denies any chest pain/pressure. Denies any nausea today.Denies any SOB. No other new change or complaint. OBJECTIVE: Vital Signs-as noted below Examination: General Appearance:Obese, Sitting in the chair ans is in no apparent distress Head: normocephalic, Atraumatic Eyes: normal inspection, EOMI, PERRL Neck: supple, Trachea midline, No JVD Respiratory/Chest: B/L Moderate air entry, Decreased BS at lung bases. No accessory muscle use. Cardiovascular: Irregularly Irregular, + systolic murmur, Normal S1, S2. Abdomen/GI:Soft, Non tender, Bowel sounds present Extremities/Musculoskeletal:B/L LE edema, erythema, in bandage Neurologic/Psych:AAOX3, grossly no focal neurological deficits Skin: B/L LE erythema, chronic venous stasis, several superficial venous stasis ulcers in bandage Checked the wounds and they are healing well with no discharge. Lab data as noted below. ASSESSMENT & PLAN: Chest X-Ray (09/30/2016) FINDINGS: The heart remains mildly enlarged. Trace bilateral pleural effusions and mild pulmonary edema remains unchanged. Left-sided pacemaker/defibrillator. No new focal lung consolidations. No pneumothorax. IMPRESSION: No change in the pulmonary edema and trace bilateral pleural effusions. Acute Hypoxemic Respiratory Failure: Caused by Acute on Chronic Systolic CHF. Clinically improving. Last Echo: LVEF: 20-25%. S/P single chamber defibrillator/pacemaker Likely to have underlying sleep apnea/Obesity hypoventilation syndrome -Continue carvedilol, digoxin -No CRISTIN or ARB due to renal insufficiency. -Daily weight, I/Os -Monitoring electrolytes -Low salt diet/Fluid restriction -Oxygen requirement is going up -Continue I/V Lasix and will switch to oral Lasix upon discharge. -Recheck CXR: mildly progressive CHF -Continue Imdur 30 mg daily. -Needs 2 step prior to discharge -Noted Cardiology consult. Thanks for input. QTC prolongation: Off Zofran -Avoids med that cause QT prolongation Lower Extremities Venous Stasis Ulcers: Continue wound care -Wound Culture from 09/10/16:GROUP B BETA STREP -Completed IV Ceftriaxone (day # 10). -Wound cultures:Strep, reviewed sensitivities. -Needs follow-up with Wound Clinic after discharge Hypermagnesemia: Holding PO magnesium -Monitor levels Diarrhea: Resolved History CAD: Denies chest pain, Troponin negative -Continue aspirin, carvedilol, statin Atrial Fibrillation: Rate controlled -Continue carvedilol, digoxin, amiodarone, apixaban. -Digoxin levels:wnl JASON on CKD Stage IV: Serum creatinine stable -Monitoring renal function -Avoid any nephrotoxic agents Diabetes Type II: Holding repaglinide -Hgb A1C: 7.7 -Continue ISS, accu checks Dyslipidemia: Continue simvastatin DVT Prophylaxis: Apixaban. Ambulate as able. Resuscitation Status : Full code Disposition: Clinically stable and can be discharged. Will coordinate with social services coordinator. Follow up with PCP Dr. Lola Jean on 10/07/2016 @ 11.00 AM. Follow up with Wound Clinic as per their recommendations.. Vital Signs: Date Time Temp Pulse Resp B/P Pulse Ox O2 Delivery O2 Flow Rate FiO2 10/01/16 16:00 Nasal Cannula 3.0 10/01/16 15:46 36.6 87 20 101/64 98 10/01/16 12:00 36.7 74 18 104/68 95 Nasal Cannula 3.0 10/01/16 12:00 Nasal Cannula 3.0 10/01/16 08:00 Nasal Cannula 3.0 10/01/16 07:52 36.6 78 16 108/76 95 Nasal Cannula 3.0 10/01/16 04:10 37.0 107 18 111/75 96 10/01/16 04:00 Nasal Cannula 3.0 10/01/16 00:00 Nasal Cannula 3.0 09/30/16 23:19 36.4 98 18 103/68 93 Nasal Cannula 3.0 09/30/16 20:36 36.6 97 18 121/72 95 Nasal Cannula 3.0 09/30/16 20:28 103 110/69 09/30/16 20:00 97 Nasal Cannula 3.0 09/30/16 16:58 76 Lab Results: Results Past 24 Hours Test 09/30/16 20:22 10/01/16 05:20 10/01/16 07:27 10/01/16 11:23 Range/Units Bedside Glucose 152 168 234 70-90 mg/dl White Blood Count 6.88 4.8-10.8 K/uL Red Blood Count 3.91 4.2-5.4 M/uL Hemoglobin 10.6 12.0-16.0 g/dL Hematocrit 37.3 37-47 % Mean Corpuscular Volume 95.4 80-100 fL Mean Corpuscular Hemoglobin 27.1 25-34 pg Mean Corpuscular Hemoglobin Concent 28.4 32-36 g/dl Platelet Count 203 130-400 K/uL Mean Platelet Volume 8.8 7.4-10.4 fL Neutrophils (%) (Auto) 81.2 % Lymphocytes (%) (Auto) 5.2 % Monocytes (%) (Auto) 9.9 % Eosinophils (%) (Auto) 3.3 % Basophils (%) (Auto) 0.3 % Neutrophils # (Auto) 5.58 1.4-6.5 K/uL Lymphocytes # (Auto) 0.36 1.2-3.4 K/uL Monocytes # (Auto) 0.68 0.11-0.59 K/uL Eosinophils # (Auto) 0.23 0-0.5 K/uL Basophils # (Auto) 0.02 0-0.2 K/uL RDW Standard Deviation 65.6 36.4-46.3 fL RDW Coefficient of Variation 18.9 11.5-14.5 % Immature Granulocyte % (Auto) 0.1 % Immature Granulocyte # (Auto) 0.01 0.00-0.02 K/uL Sodium Level 141 136-145 mmol/L Potassium Level 4.2 3.5-5.1 mmol/L Chloride Level 98 98-107 mmol/L Carbon Dioxide Level 39 21-32 mmol/L Anion Gap 4.0 3-11 mmol/L Blood Urea Nitrogen 54 7-18 mg/dl Creatinine 1.70 0.60-1.20 mg/dl Est Creatinine Clear Calc Drug Dose 37.4 ml/min Estimated GFR () 34.3 Estimated GFR (Non- 29.6 BUN/Creatinine Ratio 31.8 10-20 Random Glucose 200 70-99 mg/dl Calcium Level 9.5 8.5-10.1 mg/dl Pro-B-Type Natriuretic Peptide 1738 0-900 pg/ml
[2016-10-01] MEDS ORDERED: DOCUSATE SODIUM/SENNA 50/8.6MG TAB PO ONE (10:45)
[2016-10-01] MEDS ORDERED: DOXYCYCLINE HYCLATE 100 MG CAP PO SCH (11:30)
[2016-10-01 12:00] VITALS: BP 104/68; PULSE 74; TEMP 36.7; O2SAT 95
[2016-10-01 15:46] VITALS: BP 101/64; PULSE 87; TEMP 36.6; O2SAT 98
[2016-10-01] MEDS ORDERED: MCTP EXT (16:44)
[2016-10-01] MEDS ORDERED: IMDSR30 PO (16:44)
[2016-10-01] MEDS ORDERED: DXY100 PO (16:44)
--- NOTE | 2016-10-01 16:46 | Discharge Instructions ---
Discharge Instructions Date of Service Oct 01, 2016. Admission Reason for Admission: CHF Discharge Discharge Diagnosis / Problem: CHF Exacerbation Discharge Goals Goal(s): Decrease discomfort, Improve function, Increase independence, Improve disease control, Improve nutritional status, Learn about illness, Diagnostic testing, Therapeutic intervention Activity Recommendations Activity Limitations: resume your previous activity (As tolerated with assistance and following fall precautions.,) Lifting Limitations: no more than 5 pounds Exercise/Sports Limitations: as tolerated Shower/Bathe: no limitations (With assistance only) . Instructions / Follow-Up Instructions / Follow-Up Follow up with PCP Dr. Lola Jean on 10/07/2016 @ 11.00 AM. Follow up with Wound Clinic as per their recommendations.. Call your Primary Care doctor if any of the following symptoms or problems start or get worse: * Shortness of breath or difficulty breathing * Wake up at night short of breath * Chest pain * Cough * Swelling of your hands, feet, or legs * More fatigued or tired with your normal activity * Palpitations - sudden fast heart beats WEIGHT * Weigh yourself every morning after using the bathroom. * Use the same scale. * Wear the same amount of clothing. * Write your weight down on a chart. * Call your Primary Care doctor if you gain more than 2-3 pounds in 1-2 days. MEDICATIONS * Use this discharge instruction sheet for medication instructions. * Take your medications at the time your doctor ordered. * Do not skip a dose of your medicines. * If you miss a dose of medicine, take it as soon as possible, but DO NOT DOUBLE A DOSE. * Read your medicine information when you get home. * Know all of the side effects of your medicine. If in doubt, ask your pharmacist * Call your Primary Care doctor's office if you have any side effects. * Be sure all of your doctors know what medicine and herbs you take (including cold, flu, and herbal medicine). Take the following with you to your follow-up doctor appointments: * Weight Chart * Medication List * List of questions Do not drink excessive alcohol, beer or wine. Current Hospital Diet Patient's current hospital diet: AHA Diet (Heart Healthy), Diabetes Type 2 Diet Discharge Diet Recommended Diet: AHA Diet (Heart Healthy), Diabetes Type 2 Diet Fluid Restriction: 1800 ml (7 cups) Pending Studies Studies pending at discharge: no Laboratory Results Hemoglobin A1c Test 09/22/16 06:10 Range/Units Estimated Average Glucose 174 mg/dl Hemoglobin A1c 7.7 H 4.5-5.6 % Medical Emergencies . Who to Call and When: Call 911 or go to the Emergency Room if: * If at any time you feel your situation is an emergency * You have tightness or pain in your chest that does not go away with rest or Nitroglycerin * You are very short of breath even with rest . Non-Emergent Contact Non-Emergency issues call your: Primary Care Provider . . "Provider Documentation" section prepared by Eliezer Avilez. VTE Core Measure Inpt VTE Proph given/why not?: Other Anticoagulation (Eliquis)
--- NOTE | 2016-10-01 16:54 | Discharge Summary ---
Discharge Summary Date of Service Oct 01, 2016. Discharge Summary Admission Date: Sep 21, 2016 at 02:23 Discharge Date: Oct 01, 2016 Discharge Disposition: Home with services Principal Diagnosis: Acute Hypoxemic Respiratory Failure QTC prolongation (Resolved) Acute on Chronic Systolic CHF Lower Extremities Venous Stasis Ulcers JASON on CKD Stage IV Diarrhea (Resolved) Secondary Diagnoses/Problems: Atrial Fibrillation Diabetes Type II Dyslipidemia Procedures: NONE Vaccinations: NONE Consultations: Cardiology Wound Care Pending Studies/Follow-Up: Follow up with Wound Clinic Follow up with cardiology Medication Reconciliation New Medications: Doxycycline Hyclate (Doxycycline Hyclate) 100 Mg Cap 100 MG PO BID, #10 CAP Isosorbide Mononitrate (Isosorbide Mononitrate ER) 30 Mg Tabcr 30 MG PO QAM, #30 Miconazole Nitrate (Desenex Shake Powder) 43 Appln/43 Gm Powd 1 APPLN EXT PRN PRN for Affected Skin Folds, #1 BTL Continued Medications: Acetaminophen (Tylenol) 325 Mg Tab 650 MG PO Q4 PRN for Pain or Fever, TAB do not exceed 3000mg/24 hours Amiodarone Hcl (Cordarone) 200 Mg Tab 200 MG PO DAILY, TAB Apixaban (Eliquis) 5 Mg Tab 5 MG PO AMPM Aspirin (Aspirin Chewable) 81 Mg Chew 81 MG PO QAM Bisacodyl (Bisacodyl) 10 Mg Sup 10 MG RE DAILY PRN for Constipation USE IF NO BM IN 4 DAYS. Carvedilol (Coreg) 12.5 Mg Tab 12.5 MG PO BID Cholecalciferol (Vitamin D) 2,000 Unit Cap 2000 INTUNIT PO QAM Digoxin (Digoxin) 0.125 Mg Tab 0.125 MG PO Q2D Ferrous Sulfate (Kp Ferrous Sulfate) 325 Mg Tab 1 TAB PO BIDM for 30 Days, #60 TAB 3 Refills Furosemide (Lasix) 80 Mg Tab 80 MG PO DAILY, TAB Gabapentin (Neurontin) 100 Mg Cap 100 MG PO TID, CAP Magnesium Hydroxide (Milk Of Magnesia) 30 Ml Susp 30 ML PO DIRECTED PRN for constipation, ML if no bm in 3 days Magnesium Oxide (Mag-Ox) 400 Mg Tab 100 MG PO DAILY 1/4 TABLET DOSE Melatonin (Kp Melatonin) 3 Mg Tab 1 TAB PO HS PRN for Sleep for 30 Days, #30 TAB Polyethylene Glycol 3350 (Miralax) 1 Pow Pow 17 GM PO DAILY PRN for Constipation, #527 GM Repaglinide (Prandin) 0.5 Mg Tab 0.5 MG PO AC, TAB Senna (Senokot) 8.6 Mg Tab 8.6 MG PO BID Simvastatin (Zocor) 20 Mg Tab 20 MG PO QPM, TAB Admission Information HPI (per Admitting provider): 70-year-old female followed by Dr. Lola Jean for Internal Medicine. Followed at the [facility]ound Clinic for lower extremity venous stasis ulcers. Resident at [facility]. History of ischemic heart disease, systolic heart failure, age fibrillation, diabetes, and other problems noted below. Presented to the ED with a 2 day history of increasing shortness of breath. Also notes increasing lower extremity edema. No chest pain. No fever or cough. . Physical Exam (per Admitting): General Appearance: + mild distress, + obese Head: normocephalic, atraumatic Eyes: normal inspection, PERRL, EOMI, sclerae normal ENT: normal ENT inspection, hearing grossly normal, pharynx normal, + pertinent finding Neck: supple, no adenopathy, thyroid normal, no JVD, trachea midline Respiratory/Chest: no respiratory distress, no accessory muscle use, + rales Cardiovascular: + tachycardia, + systolic murmur, + gallop/S3, + irregularly irregular, + pertinent finding Abdomen/GI: normal bowel sounds, non tender, soft, no organomegaly, no pulsatile mass, + pertinent finding Extremities/Musculoskelatal: + pedal edema, + slow capillary refill Neurologic/Psych: braid maker II-XII nml as tested, no motor/sensory deficits, alert , normal mood/affect, oriented x 3 Skin: warm/dry, + pertinent finding Lymphatic: no adenopathy Hospital Course Chest X-Ray (09/30/2016) FINDINGS: The heart remains mildly enlarged. Trace bilateral pleural effusions and mild pulmonary edema remains unchanged. Left-sided pacemaker/defibrillator. No new focal lung consolidations. No pneumothorax. IMPRESSION: No change in the pulmonary edema and trace bilateral pleural effusions. Acute Hypoxemic Respiratory Failure: Caused by Acute on Chronic Systolic CHF. Clinically improving. Last Echo: LVEF: 20-25%. S/P single chamber defibrillator/pacemaker Likely to have underlying sleep apnea/Obesity hypoventilation syndrome -Continue carvedilol, digoxin -No CRISTIN or ARB due to renal insufficiency. -Daily weight, I/Os -Monitoring electrolytes -Low salt diet/Fluid restriction -Oxygen requirement is going up -Continue I/V Lasix and will switch to oral Lasix upon discharge. -Recheck CXR: mildly progressive CHF -Continue Imdur 30 mg daily. -Needs 2 step prior to discharge -Noted Cardiology consult. Thanks for input. QTC prolongation: Off Zofran -Avoids med that cause QT prolongation Lower Extremities Venous Stasis Ulcers: Continue wound care -Wound Culture from 09/10/16:GROUP B BETA STREP -Completed IV Ceftriaxone (day # 10). -Wound cultures:Strep, reviewed sensitivities. -Needs follow-up with Wound Clinic after discharge Hypermagnesemia: Holding PO magnesium -Monitor levels Diarrhea: Resolved History CAD: Denies chest pain, Troponin negative -Continue aspirin, carvedilol, statin Atrial Fibrillation: Rate controlled -Continue carvedilol, digoxin, amiodarone, apixaban. -Digoxin levels:wnl JASON on CKD Stage IV: Serum creatinine stable -Monitoring renal function -Avoid any nephrotoxic agents Diabetes Type II: Holding repaglinide -Hgb A1C: 7.7 -Continue ISS, accu checks Dyslipidemia: Continue simvastatin DVT Prophylaxis: Apixaban. Ambulate as able. Resuscitation Status : Full code Disposition: Clinically stable and can be discharged. Will coordinate with social service director. Follow up with PCP Dr. Lola Jean on 10/07/2016 @ 11.00 AM. Follow up with Wound Clinic as per their recommendations.. Total time spent on discharge = 42 minutes. This includes examination of the patient, discharge planning, medication reconciliation, and communication with other providers. Discharge Instructions Discharge Goals Goal(s): Decrease discomfort, Improve function, Increase independence, Improve disease control, Improve nutritional status, Learn about illness, Diagnostic testing, Therapeutic intervention Activity Recommendations Activity Limitations: resume your previous activity (As tolerated with assistance and following fall precautions.,) Lifting Limitations: no more than 5 pounds Exercise/Sports Limitations: as tolerated Shower/Bathe: no limitations (With assistance only) . Instructions / Follow-Up Instructions / Follow-Up Follow up with PCP Dr. Lola Jean on 10/07/2016 @ 11.00 AM. Follow up with Wound Clinic as per their recommendations.. Additional Copies To Lola Jean M.D.
[2016-10-01 17:01] VITALS: BP 101/64; PULSE 87; TEMP 36.6; O2SAT 98
[2016-10-02] MEDS ORDERED: SENNA 8.6 MG TAB PO SCH (09:00)
[2016-10-06] MEDS ORDERED: POTA10CA28 PO (15:29)
[2016-10-06] MEDS ORDERED: ATOR-24 PO (15:29)
[2016-10-06] MEDS ORDERED: POLY335019 PO (15:29)
[2016-10-06] MEDS ORDERED: INSU1INJ SC ×3 (15:29)
[2016-10-06] MEDS ORDERED: LAMO200T PO (15:29)
[2016-10-06] MEDS ORDERED: METO25TA3 PO (15:29)
[2016-10-06] MEDS ORDERED: FLUO20CA35 PO (15:29)
[2016-10-06] MEDS ORDERED: TRAZ100T29 PO (15:29)
[2016-10-06] MEDS ORDERED: PHEN1TAB86 PO (15:29)
[2016-11-18] MEDS ORDERED: APIX1TAB3 PO (09:00)
[2017-02-07] MEDS ORDERED: REPA1TAB40 PO (23:31)
[2017-02-14] MEDS ORDERED: AMOX875T PO (12:57)
[2017-04-28] MEDS ORDERED: BISA10SU5 PR (09:52)
[2017-04-28] MEDS ORDERED: SENN1TAB86 PO (09:52)
[2017-04-28] MEDS ORDERED: GABA-112 PO (09:52)
[2017-04-28] MEDS ORDERED: FRS/40 PO (09:52)
[2017-04-28] MEDS ORDERED: SIMV20TA2 PO (09:52)
[2017-04-28] MEDS ORDERED: POLY335019 PO (09:52)
[2017-04-28] MEDS ORDERED: CARV6.252 PO (09:52)
[2017-04-28] MEDS ORDERED: APIX1TAB3 PO (09:52)
[2017-04-28] MEDS ORDERED: FERR325T5 PO (09:52)
[2017-04-28] MEDS ORDERED: POTA10TA PO (09:52)
[2017-04-28] MEDS ORDERED: REPA1TAB40 PO (09:52)
[2017-05-28] MEDS ORDERED: MCTP EXT (10:24)
[2017-05-28] MEDS ORDERED: CIPR250T3 PO (10:24)
[2017-05-28] MEDS ORDERED: CLC150 PO (10:49)
[2017-05-28] MEDS ORDERED: LCTX PO (10:51)
[2017-05-28] MEDS ORDERED: INSDGIPEN SC (11:06)
[2017-05-28] MEDS ORDERED: NVLGI/PEN SC (11:06)
[2017-05-28] MEDS ORDERED: CEFU1TAB36 PO (15:24)
== END 2016-10-01 18:15 | disposition home health service (06) | DRG 291 ==
LOC: ENRESERVTM → ENRESERVDT → EDBD 22:59 → C.EDB 23:00 → C.MED 09-21 02:23
PROVIDERS: ADMIT Hospitalist; ATTEND Emergency Medicine
DX: I13.0 Hypertensive heart and chronic kidney disease with heart failure and stage 1 through stage 4 chronic kidney disease, or unspecified chronic kidney disease (principal); J96.01 Acute respiratory failure with hypoxia; I50.23 Acute on chronic systolic (congestive) heart failure; E66.2 Morbid (severe) obesity with alveolar hypoventilation; N18.4 Chronic kidney disease, stage 4 (severe); N17.9 Acute kidney failure, unspecified; M86.671 Other chronic osteomyelitis, right ankle and foot; L97.929 Non-pressure chronic ulcer of unspecified part of left lower leg with unspecified severity; I25.10 Atherosclerotic heart disease of native coronary artery without angina pectoris; E11.22 Type 2 diabetes mellitus with diabetic chronic kidney disease; Z96.653 Presence of artificial knee joint, bilateral; Z79.82 Long term (current) use of aspirin; Z68.38 Body mass index [BMI] 38.0-38.9, adult; Z79.899 Other long term (current) drug therapy; E78.5 Hyperlipidemia, unspecified; I48.0 Paroxysmal atrial fibrillation; I25.5 Ischemic cardiomyopathy; Z95.810 Presence of automatic (implantable) cardiac defibrillator; I44.7 Left bundle-branch block, unspecified; E83.41 Hypermagnesemia; E11.69 Type 2 diabetes mellitus with other specified complication; E11.622 Type 2 diabetes mellitus with other skin ulcer; Z85.42 Personal history of malignant neoplasm of other parts of uterus; I73.9 Peripheral vascular disease, unspecified; E11.51 Type 2 diabetes mellitus with diabetic peripheral angiopathy without gangrene; I87.8 Other specified disorders of veins

== ENCOUNTER 2016-10-22 09:34 | Inpatient (IN) | payer OTHER ==
[2016-10-22] VITALS (10 sets, daily range): BP systolic 107–122; BP diastolic 64–78; PULSE 95–105; TEMP 36.6–36.7; O2SAT 95–100; Ht 180.3 cm; Wt 102.9 kg
[~2016-10-22] VITALS: Ht 180.3 cm; Wt 102.9 kg
[~2016-10-22 09:34] MED LIST changes: -AMIO200T4 PO; -APIX1TAB3 PO; +ATOR-24 PO; +BISA10SU5 RE; -CARV12.5 PO; -DIGO0.1216 PO; -FERR325T51 PO; +FLUO20CA35 PO; -FRS/40 PO; +FRS/80 PO; +INSU1INJ SC; +LAMO200T PO; -MAGN400T6 PO; -MELATAB2 PO; +METO25TA3 PO; -OXYC-57 PO; -PENI-82 PO; +PHEN1TAB86 PO; +POLY335019 PO; +POTA10CA28 PO; -REPA0.5T PO; +REPA1TAB5 PO; -SIMV20TA2 PO; +TRAZ100T29 PO
[2016-10-22] MEDS ORDERED: AMIO200T4 PO (09:41)
[2016-10-22] MEDS ORDERED: LNX125 PO (09:49)
[2016-10-22] MEDS ORDERED: FRS/40 PO (09:50)
[2016-10-22] MEDS ORDERED: MAGN400T6 PO (09:51)
[2016-10-22] MEDS ORDERED: CARV12.52 PO (09:54)
[2016-10-22] MEDS ORDERED: APIX1TAB3 PO (09:55)
[2016-10-22] MEDS ORDERED: FERR1TAB13 PO (09:57)
[2016-10-22] MEDS ORDERED: SENN-65 PO (09:58)
[2016-10-22] MEDS ORDERED: NYST80OI TOP (10:00)
[2016-10-22] MEDS ORDERED: REPA1TAB40 PO (10:05)
[2016-10-22] MEDS ORDERED: SIMV20TA2 PO (10:05)
[2016-10-22] MEDS ORDERED: [UNRECOGNIZED DRUG - SUPPLY] (10:09)
[2016-10-22] MEDS ORDERED: ISR/30 PO (10:12)
[2016-10-22] MEDS ORDERED: MICO2POW8 TOP (10:16)
--- NOTE | 2016-10-22 10:16 | DIAGNOSTIC IMAGING REPORT ---
CHEST ONE VIEW PORTABLE CLINICAL HISTORY: Respiratory distress COMPARISON STUDY: 09/30/2016 FINDINGS: The heart is enlarged. There is a left subclavian pacer/defibrillator present. There is worsening congestive failure and pulmonary edema. Small pleural effusions are suspected.[ IMPRESSION: Bilateral pulmonary airspace opacities, most consistent with worsening pulmonary edema. Electronically signed by: Tee Ulrich M.D. 10/22/2016 10:14 AM Dictated Date/Time: 10/22/2016 10:07 AM
[2016-10-22] MEDS ORDERED: MELA1TAB5 PO (10:18)
[2016-10-22 10:33] LABS: BASO % 0.5 %; BASO ABS # 0.06 K/uL (0-0.2); COMPLETE YES; EOS % 4.3 %; HEMATOCRIT 44.5 % (37-47); IG% 0.5 %; LYMPH % 10.7 %; LYMPH ABS # 1.22 K/uL (1.2-3.4); MEAN CELL VOLUME 96.7 fL (80-100); MEAN CORPUSCULAR HGB CONC 27.9 g/dl (32-36); MEAN PLATELET VOLUME 8.6 fL (7.4-10.4); MONO % 5.9 %; NEUT % 78.1 %; PLATELET COUNT 242 K/uL (130-400); WHITE BLOOD COUNT 11.36 K/uL (4.8-10.8)
[2016-10-22 10:34] LABS: ALT/SGPT 18 U/L (12-78); AST/SGOT 10 U/L (15-37); BLOOD UREA NITROGEN 29 mg/dl (7-18); CALCIUM 9.3 mg/dl (8.5-10.1); CARBON DIOXIDE 33 mmol/L (21-32); CHLORIDE 102 mmol/L (98-107); GLUCOSE 259 mg/dl (70-99); POTASSIUM 5.1 mmol/L (3.5-5.1); SODIUM 138 mmol/L (136-145)
[2016-10-22 10:39] LABS: ALB/GLOB RATIO 0.7 (0.9-2); ALKALINE PHOSPHATASE 65 U/L (45-117); CKMB/CK RATIO 2.9 (0-3.0)
[2016-10-22] MEDS ORDERED: ONDANSETRON INJ 2 MG/ML 2 ML VIAL IV PRN (13:00)
[2016-10-22] MEDS ORDERED: NITROGLYCERIN 0.4 MG SL PER TAB CHARGE SL PRN (13:00)
[2016-10-22 13:10] LABS: ARTERIAL BLOOD GAS BASE EXCESS 2.2 mEq/L (-9-1.8); ARTERIAL BLOOD GAS HCO3 31 mmol/L (19-24); ARTERIAL BLOOD GAS PO2 98 mm/Hg (80-95); ARTERIAL BLOOD GAS pH 7.27 (7.35-7.45)
[2016-10-22] MEDS ORDERED: FUROSEMIDE INJ 80 MG in SYRINGE 0 ML IV ONE (13:10)
[2016-10-22 13:11] LABS: ALLEN TEST POS (POS); O2 ADMINISTRATION 100%
[2016-10-22] MEDS ORDERED: GLUCOSE 10 TABS/TUBE PO PRN (13:15)
[2016-10-22] MEDS ORDERED: DEXTROSE 50% 50 ML SYR IV PRN (13:15)
[2016-10-22] MEDS ORDERED: GLUCAGON FOR INJ 1 MG VIAL SQ PRN (13:15)
[2016-10-22] MEDS ORDERED: GLUCOSE 40% GEL 15 GM TUBE PO PRN (13:15)
--- NOTE | 2016-10-22 14:21 | History and Physical ---
History & Physical Date & Time of Service: Oct 22, 2016 at 13:28 Chief Complaint: Shortness Of Breath Primary Care Physician: Lola Jean M.D. History of Present Illness Source: patient This is a 70 y/o female with PMHx of ischemic heart disease, systolic heart failure, PAF on Eliquis, DM 2, and other problems outlined below who presents [facility] the ED from [facility] with worsening SOB that began this morning. Pt was recently admitted 09/21-10/01 with acute on chronic respiratory failure secondary to acute CHF exacerbation. Pt was tx with IV Lasix in hospital and discharged back to [facility] on 2L continuos O2 (new for patient). History is primarily obtained from director at [place] [facility] as patient unable to give history due to acute illness. He reports that patient has had worsening SOB since 0430 this morning. Pt has had no fevers or cough. She denies chest pain or worsening LE edema. Pt has chronic venous stasis ulcers. She recently completed course of Doxy and follows with wound clinic. In the ED, pt is hypoxic , tachycardic and tachypneic on arrival. She is now saturating well on BIPAP. ABG pH 7.27, pCO2 70, pO2 98, bicarb 31. Pt is afebrile with mild leukocytosis> 11K. K+ 5.1. creat 1.5. CXR worsening pulmonary edema. Trop neg and EKG unchanged. Pt will be admitted for further evaluation and treatment. Past Medical/Surgical History Medical Problems: (1) Atrial fibrillation Status: Chronic (2) CKD (chronic kidney disease), stage III Status: Chronic (3) Coronary artery disease Status: Chronic (4) DM type 2 (diabetes mellitus, type 2) Status: Chronic (5) History of osteomyelitis Permanent Comment: R third toe Status: Chronic (6) History of uterine cancer Permanent Comment: s/p XRT Status: Chronic (7) HTN (hypertension) Status: Chronic (8) Pacemaker Status: Chronic (9) Systolic CHF, chronic Permanent Comment: LVEF 20-25% Status: Chronic Surgical Problems: (1) History of total bilateral knee replacement Status: Chronic (2) S/P cholecystectomy Status: Chronic (3) Status post placement of cardiac pacemaker Status: Chronic Family History Cancer MOTHER Heart disease MOTHER Social History Smoking Status: Unknown if Ever Smoked Drug Use: none Marital Status: Housing status: other ([facility]) Occupational Status: retired Immunizations History of Influenza Vaccine: Yes History of Tetanus Vaccine?: No History of Pneumococcal: Yes History of Hepatitis B Vaccine: No Allergies Coded Allergies: No Known Allergies (Unverified , 09/21/16) Home Medications Scheduled Amiodarone Hcl (Cordarone), 200 MG PO DAILY Apixaban (Eliquis), 5 MG PO BID Aspirin (Aspirin Chewable), 81 MG PO QAM Carvedilol (Coreg), 12.5 MG PO BID Cholecalciferol (Vitamin D), 2,000 INTUNIT PO QAM Digoxin (Digoxin), 125 MCG PO Q2D Ferrous Sulfate ( Ferrous Sulfate), 1 TAB PO BIDM Furosemide (Lasix), 80 MG PO DAILY Gabapentin (Neurontin), 100 MG PO TID Isosorbide Dinitrate (Isordil), 30 MG PO DAILY Magnesium Oxide (Mag-Ox), 100 MG PO DAILY Melatonin ( Melatonin), 1 TAB PO HS Nystatin (Topical) (Nystatin), 1 APPLN TOP BID Polyethylene Glycol 3350 (Miralax), 17 GM PO DAILY Repaglinide (Prandin), 0.5 MG PO AC Senna/Docusate Sod (Senokot S), 1 TAB PO BID Simvastatin (Zocor), 20 MG PO QPM [Compression Device], 30 MINUTES BID Scheduled PRN Acetaminophen (Tylenol), 650 MG PO Q4 PRN for Pain or Fever Bisacodyl (Bisacodyl), 10 MG RE DAILY PRN for Constipation Magnesium Hydroxide (Milk Of Magnesia), 30 ML PO DIRECTED PRN for constipation Miconazole Nitrate (Topical) (Zeasorb-Af), 1 APPLN TOP DAILY PRN for FUNGAL Review of Systems Unable to obtain complete ROS due to patients acute illness Constitutional: + fatigue, + weakness, No fever Eyes: No worsening of vision ENT: No hearing loss Respiratory: + dyspnea at rest, + shortness of breath, No cough, No wheezing Cardiovascular: + edema (chronic ), No chest pain Musculoskeletal: + swelling Neurologic: + weakness Endocrine: + fatigue Integumentary: + problem reported (chronic LLE wound) Physical Exam Vital Signs Date Time Temp Pulse Resp B/P Pulse Ox O2 Delivery O2 Flow Rate FiO2 10/22/16 13:15 132/77 10/22/16 13:09 100 10/22/16 13:09 100 24 99 10/22/16 12:59 126/75 10/22/16 12:45 123/76 10/22/16 12:39 101 27 99 10/22/16 12:30 133/79 10/22/16 12:15 132/74 10/22/16 12:09 102 98 10/22/16 11:59 141/79 10/22/16 11:39 100 34 99 10/22/16 11:34 101 32 98 10/22/16 11:04 99 26 98 10/22/16 10:48 95 98 100 10/22/16 10:42 95 95 100 10/22/16 10:34 95 28 94 10/22/16 10:04 106 97 10/22/16 10:03 96 Non-Rebreather 15.0 10/22/16 09:58 102 10/22/16 09:57 98 Non-Rebreather 50 10/22/16 09:51 36.4 102 34 163/98 95 Non-Rebreather 15.0 10/22/16 09:46 163/98 10/22/16 09:46 81 Room Air General Appearance: WD/WN, + mild distress, + obese, + pertinent finding (Pt is sitting up in bed with director of [facility] at bedside) Head: normocephalic, atraumatic Eyes: normal inspection ENT: hearing grossly normal Neck: supple Respiratory/Chest: chest non-tender, + pertinent finding (course breath sounds with decreased air movement) Cardiovascular: no murmur, + tachycardia Abdomen/GI: non tender, soft, + pertinent finding (decreased bowel sounds) Back: normal inspection Extremities/Musculoskelatal: + pertinent finding (chronic venous stasis skin changes with 3 small wounds noted to LLE. No erythema, edema or drainage noted) Neurologic/Psych: alert, normal mood/affect, oriented x 3 Skin: normal color, warm/dry Diagnostics Laboratory Results Results Past 24 Hours Test 10/22/16 09:50 10/22/16 12:53 Range/Units White Blood Count 11.36 4.8-10.8 K/uL Red Blood Count 4.60 4.2-5.4 M/uL Hemoglobin 12.4 12.0-16.0 g/dL Hematocrit 44.5 37-47 % Mean Corpuscular Volume 96.7 80-100 fL Mean Corpuscular Hemoglobin 27.0 25-34 pg Mean Corpuscular Hemoglobin Concent 27.9 32-36 g/dl Platelet Count 242 130-400 K/uL Mean Platelet Volume 8.6 7.4-10.4 fL Neutrophils (%) (Auto) 78.1 % Lymphocytes (%) (Auto) 10.7 % Monocytes (%) (Auto) 5.9 % Eosinophils (%) (Auto) 4.3 % Basophils (%) (Auto) 0.5 % Neutrophils # (Auto) 8.86 1.4-6.5 K/uL Lymphocytes # (Auto) 1.22 1.2-3.4 K/uL Monocytes # (Auto) 0.67 0.11-0.59 K/uL Eosinophils # (Auto) 0.49 0-0.5 K/uL Basophils # (Auto) 0.06 0-0.2 K/uL RDW Standard Deviation 66.4 36.4-46.3 fL RDW Coefficient of Variation 19.1 11.5-14.5 % Immature Granulocyte % (Auto) 0.5 % Immature Granulocyte # (Auto) 0.06 0.00-0.02 K/uL Nucleated RBC Absolute Count (auto) 0.04 0-0 K/uL Nucleated Red Blood Cells % 0.4 % Sodium Level 138 136-145 mmol/L Potassium Level 5.1 3.5-5.1 mmol/L Chloride Level 102 98-107 mmol/L Carbon Dioxide Level 33 21-32 mmol/L Anion Gap 3.0 3-11 mmol/L Blood Urea Nitrogen 29 7-18 mg/dl Creatinine 1.50 0.60-1.20 mg/dl Est Creatinine Clear Calc Drug Dose 46.9 ml/min Estimated GFR () 39.9 Estimated GFR (Non- 34.4 BUN/Creatinine Ratio 19.0 10-20 Random Glucose 259 70-99 mg/dl Calcium Level 9.3 8.5-10.1 mg/dl Total Bilirubin 0.6 0.2-1 mg/dl Aspartate Amino Transf (AST/SGOT) 10 15-37 U/L Alanine Aminotransferase (ALT/SGPT) 18 12-78 U/L Alkaline Phosphatase 65 45-117 U/L Total Creatine Kinase 52 26-192 U/L Creatine Kinase MB 1.5 0.5-3.6 ng/ml Creatine Kinase MB Ratio 2.9 0-3.0 Troponin I < 0.015 0-0.045 ng/ml Pro-B-Type Natriuretic Peptide 1845 0-900 pg/ml Total Protein 9.4 6.4-8.2 gm/dl Albumin 3.8 3.4-5.0 gm/dl Globulin 5.6 2.5-4.0 gm/dl Albumin/Globulin Ratio 0.7 0.9-2 Digoxin Level 0.6 0.8-2.0 ng/ml Arterial Blood pH 7.27 7.35-7.45 Arterial Blood Partial Pressure CO2 70 35-46 mmHg Arterial Blood Partial Pressure O2 98 80-95 mm/Hg Arterial Blood HCO3 31 19-24 mmol/L Arterial Blood Oxygen Saturation 96.0 90-95 % Arterial Blood Base Excess 2.2 -9-1.8 mEq/L Arterial Blood Gas Delivery 100% Wing Test POS POS Diagnostic Radiology CXR IMPRESSION: Bilateral pulmonary airspace opacities, most consistent with worsening pulmonary edema. EKG EKG: sinus rhythm at 97 bpm with LBBB; no change when compared to EKG from Impression Assessment and Plan ACUTE ON CHRONIC HYPOXEMIC RESPIRATORY FAILURE pt presented with worsening SOB; recent admission for same issue-started 2L continuous O2 and Lasix 80mg daily -admit to telemetry -multifactorial: Acute on Chronic Systolic CHF in setting of NICOLAS and obesity hypoventilation syndrome -ABG pH 7.27, pCO2 70, pO2 98, bicarb 31 consistent with respiratory acidosis and compensatory metabolic alkalosis -Last Echo: LVEF: 20-25% -CXR: worsening pulmonary edema -start IV Lasix 80mg BID -cont carvedilol and digoxin -hold Imdur and start nitro paste -monitor daily weight, I/Os-will insert yun for close monitoring -Low salt diet/Fluid restriction -cont BIPAP; wean as tolerated -monitor CHRONIC VENOUS STASIS ULCERS -completed course of Doxy 10/07/16 -consult wound care nurse -pt follows with wound clinic CAD -s/p stents placed in 2013 -Trop negative and EKG: no acute changes -cont ASA, BB and statin -pt currently denies chest pain PAROXYSMAL AFIB EKG: sinus rhythm -digoxin levels 0.6 -cont carvedilol, digoxin, amiodarone, apixaban CKD STAGE IV -creatinine 1.5 (bl=1.7-1.9) -continue to monitor closely while on IV Lasix and avoid nephrotoxic agents when able DM 2 -recent A1C 7.7 -holding Prandin -start ISS -monitor BSG AC HS DYSLIPIDEMIA -cont statin DVT PROPHYLAXIS -cont Eliquis CODE STATUS -DNR/DNI. Living will on chart. DISPO -Pt seen in collaboration with Dr. Walker. Please see his addendum for further details. Thanks! -Of note: patient will be followed by Dr. Merrill starting tomorrow AM. VTE Prophylaxis VTE Risk Assessment Done? Y/N: Yes Risk Level: Moderate Given or contraindicated: Other Anticoagulation (apixaban) Note ATTENDING ADDENDUM Record reviewed. Patient interviewed and examined. Care coordinated with Anna Long PA-C. Please refer to her documentation for patient's history. Briefly, 70 YO female with history of ischemic heart disease, systolic heart failure, age fibrillation, diabetes, and other problems as noted. Acute onset of SOB this morning. No apparent chest pain, fever, cough. EXAM: General- acutely ill, tachypneic VS- as noted Head- atraumatic Eyes- PERRL, EOMI, anicteric ENT- wearing BiPAP; unable to assess oropharynx Neck- supple; + JVD; no thyromegaly; trachea midline Lungs- bibasilar rales, diffuse wheezing, using accessory muscles Heart- RRR, II/ sys murmur LSB, probable apical S3 Abdomen- obese, + BS, soft, nontender; no palpable masses or hepatosplenomegaly Extremities- 2-3+ pretibial edema; no calf tenderness; diminished pedal pulses ; capillary refill toes 2 sec Neuro- lethargic; PERRL, EOMI; unable to follow commands Skin- venous stasis ulcers left lower extremity DATA: Lab studies as noted. Chest x-ray reviewed- pulmonary edema. EKG reviewed- NSR 97 / min, LBBB. ASSESSMENT AND PLAN: Acute hypoxic + hypercapnic respiratory failure. Pulmonary edema. Acute on chronic left ventricular systolic heart failure. Continue BiPAP as necessary for ventilatory support. IV furosemide until CHF compensated. Please refer to AUTUMN Long's documentation for discussion of other issues. Chace Walker MD .
--- NOTE | 2016-10-22 14:59 | EMERGENCY ROOM VISIT NOTE ---
History Report prepared by Luis A: Libertad Humphrey Under the Supervision of: Dr. Gila Flynn D.O. First contact with patient: 09:49 Chief Complaint: SHORTNESS OF BREATH Stated Complaint: SHORTNESS OF BREATH Nursing Triage Summary: EMS states the patient was just here 3 weeks ago for about 10 days with CHF, which is a chronic problem for the patient-resides at [facility]-reports 85% on RA, unable to obtain peripheral access in field History of Present Illness The patient is a 70 year old female who presents to the Emergency Room with complaints of persistent SOB starting SILVERWARE BUFFER. She presents to the ED by EMS from [facility]. She denies being in any pain. The history is limited due to the patient's respiratory distress. Source of History: patient History Limited By: dyspnea Onset: SILVERWARE BUFFER Position: other (global) Quality: other (SOB) Timing: other (persistent) Note: Pt denies having any pain. Review of Systems Unobtainable due to patient's respiratory distress. Past Medical & Surgical Medical Problems: (1) Atrial fibrillation (2) CHF (congestive heart failure) (3) CKD (chronic kidney disease), stage III (4) Coronary artery disease (5) DM type 2 (diabetes mellitus, type 2) (6) History of osteomyelitis (7) History of uterine cancer (8) HTN (hypertension) (9) Pacemaker (10) Respiratory distress (11) Systolic CHF, chronic Surgical Problems: (1) History of total bilateral knee replacement (2) S/P cholecystectomy (3) Status post placement of cardiac pacemaker Family History Cancer MOTHER Heart disease MOTHER Social History Smoking Status: Never Smoker Drug Use: none Marital Status: Housing Status: other Occupation Status: retired Current/Historical Medications Scheduled Amiodarone Hcl (Cordarone), 200 MG PO DAILY Apixaban (Eliquis), 5 MG PO BID Aspirin (Aspirin Chewable), 81 MG PO QAM Carvedilol (Coreg), 12.5 MG PO BID Cholecalciferol (Vitamin D), 2,000 INTUNIT PO QAM Digoxin (Digoxin), 125 MCG PO Q2D Ferrous Sulfate (Kp Ferrous Sulfate), 1 TAB PO BIDM Furosemide (Lasix), 80 MG PO DAILY Gabapentin (Neurontin), 100 MG PO TID Isosorbide Dinitrate (Isordil), 30 MG PO DAILY Magnesium Oxide (Mag-Ox), 100 MG PO DAILY Melatonin (Kp Melatonin), 1 TAB PO HS Nystatin (Topical) (Nystatin), 1 APPLN TOP BID Polyethylene Glycol 3350 (Miralax), 17 GM PO DAILY Repaglinide (Prandin), 0.5 MG PO AC Senna/Docusate Sod (Senokot S), 1 TAB PO BID Simvastatin (Zocor), 20 MG PO QPM [Compression Device], 30 MINUTES BID Scheduled PRN Acetaminophen (Tylenol), 650 MG PO Q4 PRN for Pain or Fever Bisacodyl (Bisacodyl), 10 MG RE DAILY PRN for Constipation Magnesium Hydroxide (Milk Of Magnesia), 30 ML PO DIRECTED PRN for constipation Miconazole Nitrate (Topical) (Zeasorb-Af), 1 APPLN TOP DAILY PRN for FUNGAL Allergies Coded Allergies: No Known Allergies (Unverified , 09/21/16) Physical Exam Vital Signs Date Time Temp Pulse Resp B/P Pulse Ox O2 Delivery O2 Flow Rate FiO2 10/22/16 12:45 123/76 10/22/16 12:39 101 27 99 10/22/16 12:30 133/79 10/22/16 12:15 132/74 10/22/16 12:09 102 98 10/22/16 11:59 141/79 10/22/16 11:39 100 34 99 10/22/16 11:34 101 32 98 10/22/16 11:04 99 26 98 10/22/16 10:48 95 98 100 10/22/16 10:42 95 95 100 10/22/16 10:34 95 28 94 10/22/16 10:04 106 97 10/22/16 10:03 96 Non-Rebreather 15.0 10/22/16 09:58 102 10/22/16 09:57 98 Non-Rebreather 50 10/22/16 09:51 36.4 102 34 163/98 95 Non-Rebreather 15.0 10/22/16 09:46 163/98 10/22/16 09:46 81 Room Air Physical Exam HEENT: Head - normocephalic and atraumatic Pupils are equal, round, and reactive to light. Extraocular eye muscles are intact, and sclera are anicteric. Nose - moist nasal mucosa without discharge. Mouth - moist buccal mucosa. Oropharynx is nonerythematous and there is no tonsillar exudate or edema noted. Neck: Supple; no JVD, nuchal rigidity, cervical lymphadenopathy. Heart: Regular rate and rhythm. There is a normal S1 and S2 with no murmurs, clicks, or gallops appreciated. Lungs: Rales in all lung ortez. Severe respiratory distress. Unable to communicate. Abdomen: Soft, completely nontender, nondistended, with good bowel sounds. There are no palpable pulsatile masses or hepatosplenomegaly. There is no guarding, rigidity, or rebound noted. Extremities: No evidence of cyanosis or clubbing. 3+ pitting edema in the legs. There are easily palpable peripheral pulses. Skin: warm and dry with good turgor and no rashes. Medical Decision & Procedures ER Provider Diagnostic Interpretation: X-ray results as stated below per interpretation by me and the radiologist: CHEST ONE VIEW PORTABLE CLINICAL HISTORY: Respiratory distress COMPARISON STUDY: 09/30/2016 FINDINGS: The heart is enlarged. There is a left subclavian pacer/defibrillator present. There is worsening congestive failure and pulmonary edema. Small pleural effusions are suspected.[ IMPRESSION: Bilateral pulmonary airspace opacities, most consistent with worsening pulmonary edema. Electronically signed by: Tee Ulrich M.D. 10/22/2016 10:14 AM Dictated Date/Time: 10/22/2016 10:07 AM Laboratory Results Test 10/22/16 09:50 10/22/16 12:53 Immature Granulocyte % (Auto) 0.5 % White Blood Count 11.36 K/uL (4.8-10.8) Red Blood Count 4.60 M/uL (4.2-5.4) Hemoglobin 12.4 g/dL (12.0-16.0) Hematocrit 44.5 % (37-47) Mean Corpuscular Volume 96.7 fL (80-100) Mean Corpuscular Hemoglobin 27.0 pg (25-34) Mean Corpuscular Hemoglobin Concent 27.9 g/dl (32-36) Platelet Count 242 K/uL (130-400) Mean Platelet Volume 8.6 fL (7.4-10.4) Neutrophils (%) (Auto) 78.1 % Lymphocytes (%) (Auto) 10.7 % Monocytes (%) (Auto) 5.9 % Eosinophils (%) (Auto) 4.3 % Basophils (%) (Auto) 0.5 % Neutrophils # (Auto) 8.86 K/uL (1.4-6.5) Lymphocytes # (Auto) 1.22 K/uL (1.2-3.4) Monocytes # (Auto) 0.67 K/uL (0.11-0.59) Eosinophils # (Auto) 0.49 K/uL (0-0.5) Basophils # (Auto) 0.06 K/uL (0-0.2) Immature Granulocyte # (Auto) 0.06 K/uL (0.00-0.02) Nucleated RBC Absolute Count (auto) 0.04 K/uL (0-0) Nucleated Red Blood Cells % 0.4 % Total Bilirubin 0.6 mg/dl (0.2-1) Aspartate Amino Transf (AST/SGOT) 10 U/L (15-37) Alanine Aminotransferase (ALT/SGPT) 18 U/L (12-78) Alkaline Phosphatase 65 U/L (45-117) Total Creatine Kinase 52 U/L (26-192) Creatine Kinase MB 1.5 ng/ml (0.5-3.6) Creatine Kinase MB Ratio 2.9 (0-3.0) Troponin I < 0.015 ng/ml (0-0.045) Pro-B-Type Natriuretic Peptide 1845 pg/ml (0-900) Total Protein 9.4 gm/dl (6.4-8.2) Albumin 3.8 gm/dl (3.4-5.0) Globulin 5.6 gm/dl (2.5-4.0) Albumin/Globulin Ratio 0.7 (0.9-2) Digoxin Level 0.6 ng/ml (0.8-2.0) Arterial Blood pH 7.27 (7.35-7.45) Arterial Blood Partial Pressure CO2 70 mmHg (35-46) Arterial Blood Partial Pressure O2 98 mm/Hg (80-95) Arterial Blood HCO3 31 mmol/L (19-24) Arterial Blood Oxygen Saturation 96.0 % (90-95) Arterial Blood Base Excess 2.2 mEq/L (-9-1.8) Arterial Blood Gas Delivery 100% Wing Test POS (POS) Laboratory results per my review. Medications Administered Procedure BiPAP ECG Indication: SOB/dyspnea Rate (beats per minute): 97 Rhythm: normal sinus Findings: LBBB, no acute ischemic change, no ectopy Comparison ECG Date: 27-Sep-2016 Change: no significant change ED Course 0949: The patient was evaluated in room A12B. A complete history and physical examination were performed. Nursing notes and previous electronic medical records were reviewed. labs were drawn as above. A twelve-lead EKG was obtained. The patient was observing the monitoring tech and pulse oximeter. She remains on high flow O2 and is sitting in an upright position. The patient had a portal chest x-ray as described above. 1025: I reevaluated the patient. Her condition does not seem to be improving. She will be put on BiPAP. Delvis from [facility] has arrived with her living will in hand. She does not wish to have anything done except for antibiotics. I spoke with the patient's son who is the power of employment attorney. He agrees with the plan. He will try to get transport to come here from [place]. 1138: I reevaluated the patient. She looks much more comfortable after being put on BiPAP. Her vitals are stable. 1208: I discussed the patient's case with SEYMOUR Panda - hospitalist. The patient will be evaluated for further management. 1215: Upon reevaluation, the patient is resting comfortably. I discussed findings and results with her and Delvis who is at the bedside . She agrees with the treatment plan. The patient will be evaluated for further management and care. Medical Decision The patient is a 70 year old female who presents to the ED with SOB. Differential diagnosis includes CHF, pneumonia, sepsis. Lab results show: WBC 11.3, stable H&H, BUN 29, creatinine 1.5, glucose 259, negative cardiac enzymes, BNP 1845, digoxin low at 0.6. This is a 70-year-old female patient who sudden onset of shortness of breath [facility]. Patient had a recent admission to the hospital for congestive heart failure. The patient presented in severe respiratory distress. O2 saturations dropped immediately without supplemental oxygen. We considered endotracheal intubation but received her living will which requested no intubation. She was placed on BiPAP. This worked well for the patient. She seems to be much more comfortable and has acceptable oxygen saturations. Consults Time Called: 1140 Consulting Physician: SEYMOUR Yaneser hospitalist Returned Call: [phone] Discussed the patient's case. The patient will be evaluated for further management. Impression Primary Impression: Respiratory failure Critical Care I have personally spent greater than 45 minutes of critical care time in the direct management of this patient. This includes bedside care, interpretation of diagnostic studies, and testing, discussion with consultants, patient, and family members, and other required patient management activities. This 45 minutes is in excess of all separately billable procedures. Scribe Attestation The scribe's documentation has been prepared under my direction and personally reviewed by me in its entirety. I confirm that the note above accurately reflects all work, treatment, procedures, and medical decision making performed by me. Departure Information Dispostion Being Evaluated By Hospitalist Referrals Lola Jean M.D. (PCP) Patient Instructions My [facility]
[2016-10-22] MEDS: INSULIN ASPART 100 UNITS/ML 3 ML PEN SC SCH ×2 (16:12→21:00)
[2016-10-22] MEDS: ASPIRIN 81 MG ECTAB PO SCH (16:13)
[2016-10-22] MEDS: CARVEDILOL 12.5 MG TAB PO SCH ×2 (16:13→20:34)
[2016-10-22] MEDS: GABAPENTIN 100 MG CAP PO SCH ×2 (16:14→20:34)
[2016-10-22] MEDS: AMIODARONE 200 MG TAB PO SCH (16:14)
[2016-10-22] MEDS: FUROSEMIDE INJ 80 MG in SYRINGE 0 ML IV SCH (17:47)
[2016-10-22] MEDS: DIGOXIN 0.125 MG TAB PO SCH (17:47)
[2016-10-22] MEDS: FERROUS SULFATE 325 MG TAB PO SCH (17:47)
[2016-10-22] MEDS: NITROGLYCERIN OINT 2% 1GM PACKET EXT SCH ×2 (17:47→23:09)
[2016-10-22] MEDS: NYSTATIN OINT 15 GM TUBE EXT SCH (20:33)
[2016-10-22] MEDS: DOCUSATE SODIUM/SENNA 50/8.6MG TAB PO SCH (20:34)
[2016-10-22] MEDS: APIXABAN 2.5 MG TAB PO SCH (20:34)
[2016-10-22] MEDS: SIMVASTATIN 20 MG TAB PO SCH (20:34)
[2016-10-22] MEDS ORDERED: NON-FORMULARY MEDICATION (Melatonin (Kp Melatonin) 1 TAB) PO SCH (21:00)
[2016-10-23] VITALS (9 sets, daily range): BP systolic 100–127; BP diastolic 62–76; PULSE 77–108; TEMP 34.9–37; O2SAT 90–97
[2016-10-23] MEDS: NITROGLYCERIN OINT 2% 1GM PACKET EXT SCH ×3 (05:15→17:34)
[2016-10-23] MEDS: FUROSEMIDE INJ 80 MG in SYRINGE 0 ML IV SCH ×2 (05:20→17:35)
[2016-10-23] MEDS: INSULIN ASPART 100 UNITS/ML 3 ML PEN SC SCH ×4 (06:30→20:59)
[2016-10-23 07:31] LABS: HEMATOCRIT 37.3 % (37-47); MEAN CELL VOLUME 95.9 fL (80-100); MEAN CORPUSCULAR HEMOGLOBIN 27.5 pg (25-34); MEAN CORPUSCULAR HGB CONC 28.7 g/dl (32-36); MEAN PLATELET VOLUME 8.6 fL (7.4-10.4); PLATELET COUNT 176 K/uL (130-400); RED BLOOD COUNT 3.89 M/uL (4.2-5.4); WHITE BLOOD COUNT 8.06 K/uL (4.8-10.8)
[2016-10-23 07:56] LABS: BUN/CREATININE RATIO 21.9 (10-20); CREATININE 1.6 mg/dl (0.60-1.20); POTASSIUM 4.3 mmol/L (3.5-5.1)
[2016-10-23] MEDS: AMIODARONE 200 MG TAB PO SCH (08:27)
[2016-10-23] MEDS: FERROUS SULFATE 325 MG TAB PO SCH ×2 (08:27→17:34)
[2016-10-23] MEDS: APIXABAN 2.5 MG TAB PO SCH ×2 (08:27→20:57)
[2016-10-23] MEDS: ASPIRIN 81 MG ECTAB PO SCH (08:27)
[2016-10-23] MEDS: DOCUSATE SODIUM/SENNA 50/8.6MG TAB PO SCH ×2 (08:28→20:57)
[2016-10-23] MEDS: CARVEDILOL 12.5 MG TAB PO SCH ×2 (08:28→20:56)
[2016-10-23] MEDS: GABAPENTIN 100 MG CAP PO SCH ×3 (08:28→20:57)
[2016-10-23] MEDS: MAGNESIUM OXIDE 400 MG TAB PO SCH (08:28)
[2016-10-23] MEDS: POLYETHYLENE (MIRALAX) 17 GM PACK PO SCH (08:29)
[2016-10-23] MEDS: CHOLECALCIFEROL 1000 INTER.UNIT TAB PO SCH (08:29)
[2016-10-23] MEDS: NYSTATIN OINT 15 GM TUBE EXT SCH ×2 (08:30→20:59)
--- NOTE | 2016-10-23 12:51 | Progress Note ---
Medicine Progress Note Date & Time of Visit: Oct 23, 2016 at 12:37. Subjective Pt was seen and examined Sitting in chair eating her lunch with no distress Pt said that her breathing feels much better today Denies any chest pain and palpitation Objective Last 8 Hrs Date Time Temp Pulse Resp B/P Pulse Ox O2 Delivery O2 Flow Rate FiO2 10/23/16 12:29 36.5 105 20 106/62 96 10/23/16 08:20 36.7 104 20 123/76 97 10/23/16 08:00 Nasal Cannula 4.0 10/23/16 05:06 36.9 102 24 100/64 95 Nasal Cannula 4.0 Physical Exam: General- Obese, no acute respiratory distress Head- atraumatic Eyes- PERRL, EOMI ENT- oropharynx clear Neck- supple, no JVD Lungs-Poor air entry Heart- regular rhythm; no murmur Abdomen- normal bowel sounds, soft Extremities- no calf tenderness, chronic venous stasis Neuro- alert, oriented x 3; PERRL, EOMI Skin- warm & dry Laboratory Results: Last 24 Hours Test 10/22/16 12:53 10/22/16 15:41 10/22/16 17:10 10/22/16 20:15 Arterial Blood pH 7.27 Arterial Blood Partial Pressure CO2 70 mmHg Arterial Blood Partial Pressure O2 98 mm/Hg Arterial Blood HCO3 31 mmol/L Arterial Blood Oxygen Saturation 96.0 % Arterial Blood Base Excess 2.2 mEq/L Arterial Blood Gas Delivery 100% Wing Test POS Bedside Glucose 206 mg/dl 204 mg/dl Potassium Level 4.8 mmol/L Test 10/23/16 06:30 10/23/16 07:38 White Blood Count 8.06 K/uL Red Blood Count 3.89 M/uL Hemoglobin 10.7 g/dL Hematocrit 37.3 % Mean Corpuscular Volume 95.9 fL Mean Corpuscular Hemoglobin 27.5 pg Mean Corpuscular Hemoglobin Concent 28.7 g/dl RDW Standard Deviation 66.3 fL RDW Coefficient of Variation 19.0 % Platelet Count 176 K/uL Mean Platelet Volume 8.6 fL Sodium Level 141 mmol/L Potassium Level 4.3 mmol/L Chloride Level 102 mmol/L Carbon Dioxide Level 35 mmol/L Anion Gap 4.0 mmol/L Blood Urea Nitrogen 35 mg/dl Creatinine 1.60 mg/dl Est Creatinine Clear Calc Drug Dose 43.4 ml/min Estimated GFR () 36.9 Estimated GFR (Non- 31.9 BUN/Creatinine Ratio 21.9 Random Glucose 115 mg/dl Calcium Level 9.0 mg/dl Bedside Glucose 136 mg/dl Assessment & Plan ACUTE ON CHRONIC HYPOXEMIC RESPIRATORY FAILURE pt presented with worsening SOB; recent admission for same issue-started 2L continuous O2 and Lasix 80mg daily -multifactorial: Acute on Chronic Systolic CHF in setting of NICOLAS and obesity hypoventilation syndrome -Last Echo: LVEF: 20-25% -CXR: worsening pulmonary edema -On IV Lasix 80mg BID - Continue diuresis to dry weight and when creatine start to elevate will change lasix to PO -cont carvedilol and digoxin -hold Imdur and start nitro paste -Continue monitor I/O -Low salt diet/Fluid restriction - Clinically improved CHRONIC VENOUS STASIS ULCERS Daily wound care CAD -s/p stents placed in 2013 -Trop negative and EKG: no acute changes -cont ASA, BB and statin - No chest pain PAROXYSMAL AFIB EKG: sinus rhythm -digoxin levels 0.6 -cont carvedilol, digoxin, amiodarone, apixaban CKD STAGE IV -creatinine 1.6 (bl=1.7-1.9) -continue to monitor closely while on IV Lasix -avoid nephrotoxic agents when able DM 2 -recent A1C 7.7 -holding Prandin -start ISS -monitor BSG AC HS DYSLIPIDEMIA -cont statin DVT PROPHYLAXIS -cont Eliquis CODE STATUS DNR/DNI. Living will on chart. Current Inpatient Medications: Current Inpatient Medications Medications (Trade) Dose Ordered Sig/Jose Route Start Time Stop Time Status Last Admin Dose Admin Acetaminophen (Tylenol Tab) 650 mg Q4H PRN PO 10/22/16 13:00 11/21/16 12:59 Ondansetron HCl (Zofran Inj) 4 mg Q6H PRN IV 10/22/16 13:00 11/21/16 12:59 Nitroglycerin 0.4 mg 0.4 mg UD PRN SL 10/22/16 13:00 11/21/16 12:59 Furosemide/Syringe (Lasix Inj/ Syringe) 8 ml @ 4 mls/min Q12@0600,1800 IV 10/22/16 18:00 11/21/16 17:59 10/23/16 05:20 4 MLS/MIN Insulin Aspart (novoLOG ASPART) SLIDING SCALE If C... ACHS SC 10/22/16 16:30 11/21/16 16:29 10/22/16 16:12 1 UNITS Glucose (Glucose 40% Gel) 15-30 GRAMS 15 GRAMS... UD PRN PO 10/22/16 13:15 11/21/16 13:14 Glucose (Glucose Chew Tab) 4-8 Tablets 4 Tabl... UD PRN PO 10/22/16 13:15 11/21/16 13:14 Dextrose (Dextrose 50% 50ML Syringe) 25-50ML OF 50% DW IV FOR... UD PRN IV 10/22/16 13:15 11/21/16 13:14 Glucagon (Glucagon Inj) 1 mg UD PRN SQ 10/22/16 13:15 11/21/16 13:14 Amiodarone HCl (Cordarone Tab) 200 mg DAILY PO 10/22/16 13:30 11/21/16 13:29 10/23/16 08:27 200 MG Aspirin (Ecotrin Tab) 81 mg QAM PO 10/22/16 13:30 11/21/16 13:29 10/23/16 08:27 81 MG Bisacodyl (Dulcolax Supp) 10 mg DAILY PRN NV 10/22/16 13:30 11/21/16 13:29 Carvedilol (Coreg Tab) 12.5 mg BID PO 10/22/16 13:30 11/21/16 13:29 10/23/16 08:28 12.5 MG Gabapentin (Neurontin Cap) 100 mg TID PO 10/22/16 14:00 11/21/16 13:59 10/23/16 08:28 100 MG Magnesium Hydroxide (Milk Of Magnesia Susp) 30 ml DAILY PRN PO 10/22/16 13:30 11/21/16 13:29 Magnesium Oxide (Mag-Ox Tab) 400 mg DAILY PO 10/23/16 09:00 11/22/16 08:59 10/23/16 08:28 400 MG Miconazole Nitrate (Desenex Powder) 1 appln DAILY PRN EXT 10/22/16 13:30 11/21/16 13:29 Nystatin (Mycostatin Oint) 1 appln BID EXT 10/22/16 21:00 11/21/16 20:59 10/23/16 08:30 1 APPLN Senna/Docusate Sodium (Senokot S Tab) 1 tab BID PO 10/22/16 21:00 11/21/16 20:59 10/23/16 08:28 1 TAB Simvastatin (Zocor Tab) 20 mg QPM PO 10/22/16 21:00 11/21/16 20:59 10/22/16 20:34 20 MG Apixaban (Eliquis Tab) 5 mg BID PO 10/22/16 21:00 11/21/16 20:59 10/23/16 08:27 5 MG Cholecalciferol (Vitamin D Tab) 2,000 inter.unit QAM PO 10/23/16 09:00 11/22/16 08:59 10/23/16 08:29 2,000 INTER.UNIT Ferrous Sulfate (Feosol Tab) 325 mg BIDM PO 10/22/16 17:00 11/21/16 17:59 10/23/16 08:27 325 MG Polyethylene (Miralax Powder Packet) 17 gm DAILY PO 10/23/16 09:00 11/22/16 08:59 10/23/16 08:29 17 GM Digoxin (Lanoxin Tab) 0.125 mg Q2D@1600 PO 10/22/16 16:00 11/21/16 15:59 10/22/16 17:47 0.125 MG Nitroglycerin (Nitroglycerin 2% Oint) 1 inch Q6H EXT 10/22/16 18:00 11/21/16 17:59 10/22/16 23:09 1 INCH
[2016-10-23] MEDS: SIMVASTATIN 20 MG TAB PO SCH (20:56)
[2016-10-24] VITALS (8 sets, daily range): BP systolic 101–135; BP diastolic 56–78; PULSE 52–110; TEMP 36.5–36.9; O2SAT 90–99
[2016-10-24] MEDS: NITROGLYCERIN OINT 2% 1GM PACKET EXT SCH ×4 (00:14→17:19)
[2016-10-24] MEDS: MAGNESIUM HYDROXIDE SUSP 30 ML UDC PO PRN (01:22)
[2016-10-24] MEDS: FUROSEMIDE INJ 80 MG in SYRINGE 0 ML IV SCH (05:20)
[2016-10-24] MEDS: INSULIN ASPART 100 UNITS/ML 3 ML PEN SC SCH ×4 (06:30→20:37)
[2016-10-24 07:27] LABS: BUN/CREATININE RATIO 22.5 (10-20); CALCIUM 9.1 mg/dl (8.5-10.1); CREATININE 1.7 mg/dl (0.60-1.20); MAGNESIUM 2.4 mg/dl (1.8-2.4); POTASSIUM 4.4 mmol/L (3.5-5.1)
[2016-10-24 07:47] LABS: HEMATOCRIT 38.8 % (37-47); MEAN CELL VOLUME 95.6 fL (80-100); MEAN CORPUSCULAR HEMOGLOBIN 26.6 pg (25-34); MEAN CORPUSCULAR HGB CONC 27.8 g/dl (32-36); MEAN PLATELET VOLUME 8.7 fL (7.4-10.4); PLATELET COUNT 186 K/uL (130-400); RED BLOOD COUNT 4.06 M/uL (4.2-5.4); WHITE BLOOD COUNT 7.73 K/uL (4.8-10.8)
[2016-10-24] MEDS: AMIODARONE 200 MG TAB PO SCH (08:01)
[2016-10-24] MEDS: FERROUS SULFATE 325 MG TAB PO SCH ×2 (08:01→17:18)
[2016-10-24] MEDS: ASPIRIN 81 MG ECTAB PO SCH (08:01)
[2016-10-24] MEDS: APIXABAN 2.5 MG TAB PO SCH ×2 (08:01→20:35)
[2016-10-24] MEDS: CARVEDILOL 12.5 MG TAB PO SCH ×2 (08:01→20:36)
[2016-10-24] MEDS: GABAPENTIN 100 MG CAP PO SCH ×3 (08:02→20:36)
[2016-10-24] MEDS: MAGNESIUM OXIDE 400 MG TAB PO SCH (08:02)
[2016-10-24] MEDS: CHOLECALCIFEROL 1000 INTER.UNIT TAB PO SCH (08:02)
[2016-10-24] MEDS: NYSTATIN OINT 15 GM TUBE EXT SCH ×2 (08:02→20:36)
[2016-10-24] MEDS: DOCUSATE SODIUM/SENNA 50/8.6MG TAB PO SCH ×2 (08:02→20:36)
[2016-10-24] MEDS: POLYETHYLENE (MIRALAX) 17 GM PACK PO SCH (08:03)
[2016-10-24] MEDS: DIGOXIN 0.125 MG TAB PO SCH (15:18)
--- NOTE | 2016-10-24 17:27 | Progress Note ---
Medicine Progress Note Date & Time of Visit: Oct 24, 2016 at 17:17. Subjective Pt was seen and examined Sitting in bed with no distress pt said that she feels much better when compare to yesterday she said that her breathing improved denies any chest pain, palpitation and dizziness Objective Last 8 Hrs Date Time Temp Pulse Resp B/P Pulse Ox O2 Delivery O2 Flow Rate FiO2 10/24/16 16:00 Nasal Cannula 4.0 10/24/16 15:25 36.5 53 18 101/56 99 Nasal Cannula 4.0 10/24/16 15:18 52 10/24/16 12:17 36.7 52 20 107/62 98 10/24/16 12:00 Nasal Cannula 4.0 Physical Exam: General- Obese, no acute respiratory distress Head- atraumatic Eyes- PERRL, EOMI ENT- oropharynx clear Neck- supple, no JVD Lungs-Poor air entry Heart- regular rhythm; systolic murmur Abdomen- normal bowel sounds, soft Extremities- no calf tenderness, chronic venous stasis Neuro- alert, oriented x 3; PERRL, EOMI Skin- warm & dry Laboratory Results: Last 24 Hours Test 10/23/16 20:12 10/24/16 06:05 10/24/16 07:39 10/24/16 11:52 Bedside Glucose 148 mg/dl 150 mg/dl 162 mg/dl White Blood Count 7.73 K/uL Red Blood Count 4.06 M/uL Hemoglobin 10.8 g/dL Hematocrit 38.8 % Mean Corpuscular Volume 95.6 fL Mean Corpuscular Hemoglobin 26.6 pg Mean Corpuscular Hemoglobin Concent 27.8 g/dl RDW Standard Deviation 65.9 fL RDW Coefficient of Variation 18.8 % Platelet Count 186 K/uL Mean Platelet Volume 8.7 fL Sodium Level 140 mmol/L Potassium Level 4.4 mmol/L Chloride Level 98 mmol/L Carbon Dioxide Level 39 mmol/L Anion Gap 3.0 mmol/L Blood Urea Nitrogen 38 mg/dl Creatinine 1.70 mg/dl Est Creatinine Clear Calc Drug Dose 40.2 ml/min Estimated GFR () 34.3 Estimated GFR (Non- 29.6 BUN/Creatinine Ratio 22.5 Random Glucose 149 mg/dl Calcium Level 9.1 mg/dl Magnesium Level 2.4 mg/dl Test 10/24/16 16:14 Bedside Glucose 179 mg/dl Assessment & Plan ACUTE ON CHRONIC HYPOXEMIC RESPIRATORY FAILURE pt presented with worsening SOB; recent admission for same issue-started 2L continuous O2 and Lasix 80mg daily -multifactorial: Acute on Chronic Systolic CHF in setting of NICOLAS and obesity hypoventilation syndrome -Last Echo: LVEF: 20-25% -CXR: worsening pulmonary edema - Lasix changed to PO, starting tomorrow - Received Lasix IV 80mg today -cont carvedilol and digoxin -Will d/c nitro paste and resume home dose imdur -Continue monitor I/O -Low salt diet/Fluid restriction - Clinically improved CHRONIC VENOUS STASIS ULCERS Daily wound care CAD -s/p stents placed in 2013 -Trop negative and EKG: no acute changes on admission -cont ASA, BB and statin - No chest pain PAROXYSMAL AFIB EKG: sinus rhythm -digoxin levels 0.6 -cont carvedilol, digoxin, amiodarone, apixaban CKD STAGE IV -creatinine 1.7 (bl=1.7-1.9) -continue to monitor closely while on IV Lasix -avoid nephrotoxic agents when able DM 2 -recent A1C 7.7 -holding Prandin -start ISS -monitor BSG AC HS DYSLIPIDEMIA -cont statin DVT PROPHYLAXIS -cont Eliquis CODE STATUS DNR/DNI. Living will on chart. Current Inpatient Medications: Current Inpatient Medications Medications (Trade) Dose Ordered Sig/Jose Route Start Time Stop Time Status Last Admin Dose Admin Acetaminophen (Tylenol Tab) 650 mg Q4H PRN PO 10/22/16 13:00 11/21/16 12:59 Ondansetron HCl (Zofran Inj) 4 mg Q6H PRN IV 10/22/16 13:00 11/21/16 12:59 Nitroglycerin (Nitrostat Tab) 0.4 mg UD PRN SL 10/22/16 13:00 11/21/16 12:59 Insulin Aspart (novoLOG ASPART) SLIDING SCALE If C... ACHS SC 10/22/16 16:30 11/21/16 16:29 10/24/16 12:16 4 UNITS Glucose (Glucose 40% Gel) 15-30 GRAMS 15 GRAMS... UD PRN PO 10/22/16 13:15 11/21/16 13:14 Glucose (Glucose Chew Tab) 4-8 Tablets 4 Tabl... UD PRN PO 10/22/16 13:15 11/21/16 13:14 Dextrose (Dextrose 50% 50ML Syringe) 25-50ML OF 50% DW IV FOR... UD PRN IV 10/22/16 13:15 11/21/16 13:14 Glucagon (Glucagon Inj) 1 mg UD PRN SQ 10/22/16 13:15 11/21/16 13:14 Amiodarone HCl (Cordarone Tab) 200 mg DAILY PO 10/22/16 13:30 11/21/16 13:29 10/24/16 08:01 200 MG Aspirin (Ecotrin Tab) 81 mg QAM PO 10/22/16 13:30 11/21/16 13:29 10/24/16 08:01 81 MG Bisacodyl (Dulcolax Supp) 10 mg DAILY PRN RI 10/22/16 13:30 11/21/16 13:29 Carvedilol (Coreg Tab) 12.5 mg BID PO 10/22/16 13:30 11/21/16 13:29 10/24/16 08:01 12.5 MG Gabapentin (Neurontin Cap) 100 mg TID PO 10/22/16 14:00 11/21/16 13:59 10/24/16 13:55 100 MG Magnesium Hydroxide (Milk Of Magnesia Susp) 30 ml DAILY PRN PO 10/22/16 13:30 11/21/16 13:29 10/24/16 01:22 30 ML Magnesium Oxide (Mag-Ox Tab) 400 mg DAILY PO 10/23/16 09:00 11/22/16 08:59 10/24/16 08:02 400 MG Miconazole Nitrate (Desenex Powder) 1 appln DAILY PRN EXT 10/22/16 13:30 11/21/16 13:29 Nystatin (Mycostatin Oint) 1 appln BID EXT 10/22/16 21:00 11/21/16 20:59 10/24/16 08:02 1 APPLN Senna/Docusate Sodium (Senokot S Tab) 1 tab BID PO 10/22/16 21:00 11/21/16 20:59 10/24/16 08:02 1 TAB Simvastatin (Zocor Tab) 20 mg QPM PO 10/22/16 21:00 11/21/16 20:59 10/23/16 20:56 20 MG Apixaban (Eliquis Tab) 5 mg BID PO 10/22/16 21:00 11/21/16 20:59 10/24/16 08:01 5 MG Cholecalciferol (Vitamin D Tab) 2,000 inter.unit QAM PO 10/23/16 09:00 11/22/16 08:59 10/24/16 08:02 2,000 INTER.UNIT Ferrous Sulfate (Feosol Tab) 325 mg BIDM PO 10/22/16 17:00 11/21/16 17:59 10/24/16 08:01 325 MG Polyethylene (Miralax Powder Packet) 17 gm DAILY PO 10/23/16 09:00 11/22/16 08:59 10/24/16 08:03 17 GM Digoxin (Lanoxin Tab) 0.125 mg Q2D@1600 PO 10/22/16 16:00 11/21/16 15:59 10/22/16 17:47 0.125 MG Nitroglycerin (Nitroglycerin 2% Oint) 1 inch Q6H EXT 10/22/16 18:00 11/21/16 17:59 10/24/16 12:17 1 INCH Furosemide (Lasix Tab) 80 mg QAM PO 10/25/16 09:00 11/24/16 08:59
[2016-10-24] MEDS ORDERED: FUROSEMIDE 40 MG TAB PO ONE (20:00)
[2016-10-24] MEDS: SIMVASTATIN 20 MG TAB PO SCH (20:36)
[2016-10-24] MEDS: BISACODYL 10 MG SUPP PR PRN (20:40)
[2016-10-25] MEDS: NITROGLYCERIN OINT 2% 1GM PACKET EXT SCH ×2 (00:02→05:16)
[2016-10-25 04:18] VITALS: BP 113/66; PULSE 81; TEMP 37; O2SAT 97
--- NOTE | 2016-10-25 07:03 | DIAGNOSTIC IMAGING REPORT ---
CHEST ONE VIEW PORTABLE CLINICAL HISTORY: Respiratory distress. Pelvic edema. COMPARISON STUDY: 10/22/2016 FINDINGS: The heart remains enlarged. There is a left subclavian pacer/defibrillator present. There are diffuse bilateral pulmonary airspace opacities, likely representing pulmonary edema. A bilateral pneumonia could appear similar but is statistically less likely.[ IMPRESSION: Persistent bilateral pulmonary airspace opacities. Pulmonary edema is favored over a bilateral pneumonia. Clinical correlation is advocated. Electronically signed by: Tee Ulrich M.D. 10/25/2016 7:02 AM Dictated Date/Time: 10/25/2016 7:00 AM
[2016-10-25 07:19] VITALS: BP 113/50; PULSE 60; TEMP 36.6; O2SAT 92
[2016-10-25] MEDS: FERROUS SULFATE 325 MG TAB PO SCH ×2 (08:07→17:32)
[2016-10-25] MEDS: ASPIRIN 81 MG ECTAB PO SCH (08:08)
[2016-10-25] MEDS: CARVEDILOL 12.5 MG TAB PO SCH ×2 (08:09→21:00)
[2016-10-25] MEDS: AMIODARONE 200 MG TAB PO SCH (08:10)
[2016-10-25] MEDS: APIXABAN 2.5 MG TAB PO SCH ×2 (08:10→21:01)
[2016-10-25] MEDS: FUROSEMIDE 80 MG TAB PO SCH (08:11)
[2016-10-25] MEDS: MAGNESIUM OXIDE 400 MG TAB PO SCH (08:12)
[2016-10-25] MEDS: GABAPENTIN 100 MG CAP PO SCH ×3 (08:13→21:01)
[2016-10-25] MEDS: CHOLECALCIFEROL 1000 INTER.UNIT TAB PO SCH (08:14)
[2016-10-25] MEDS: DOCUSATE SODIUM/SENNA 50/8.6MG TAB PO SCH ×2 (08:15→20:56)
[2016-10-25] MEDS: POLYETHYLENE (MIRALAX) 17 GM PACK PO SCH (08:15)
[2016-10-25] MEDS: INSULIN ASPART 100 UNITS/ML 3 ML PEN SC SCH ×4 (08:17→21:02)
[2016-10-25] MEDS: NYSTATIN OINT 15 GM TUBE EXT SCH ×2 (08:20→20:56)
[2016-10-25 08:28] LABS: BUN/CREATININE RATIO 26.5 (10-20); CREATININE 1.7 mg/dl (0.60-1.20); MAGNESIUM 2.4 mg/dl (1.8-2.4); POTASSIUM 4.3 mmol/L (3.5-5.1)
[2016-10-25 08:31] LABS: CALCIUM 9.5 mg/dl (8.5-10.1)
[2016-10-25] MEDS: ACETAMINOPHEN 325 MG TAB PO PRN ×2 (11:07→20:57)
[2016-10-25 11:35] VITALS: BP 100/63; PULSE 53; TEMP 36.5; O2SAT 98
[2016-10-25] MEDS ORDERED: NITROGLYCERIN 2% OINTMENT 30GM TUBE EXT SCH (12:00)
--- NOTE | 2016-10-25 12:18 | Progress Note ---
Medicine Progress Note Date & Time of Visit: October 25, 2016 at 12:09. Subjective Pt was seen and examined Sitting in bed with no distress Looks more awake today Pt said that her breathing feels much today compare to when she came denies any chest pain, palpitation and dizziness Objective Last 8 Hrs Date Time Temp Pulse Resp B/P Pulse Ox O2 Delivery O2 Flow Rate FiO2 10/25/16 11:35 36.5 53 18 100/63 98 4.0 10/25/16 08:00 Room Air 10/25/16 07:19 36.6 60 18 113/50 92 4.0 10/25/16 04:18 37.0 81 20 113/66 97 Room Air Physical Exam: General- Obese, no acute respiratory distress Head- atraumatic Eyes- PERRL, EOMI ENT- oropharynx clear Neck- supple, no JVD Lungs-Poor air entry Heart- irregular rhythm; systolic murmur Abdomen- normal bowel sounds, soft Extremities- no calf tenderness, chronic venous stasis Neuro- alert, oriented x 3; PERRL, EOMI Skin- warm & dry Laboratory Results: Last 24 Hours Test 10/24/16 16:14 10/24/16 20:04 10/25/16 07:02 10/25/16 07:27 Bedside Glucose 179 mg/dl 159 mg/dl 183 mg/dl Sodium Level 138 mmol/L Potassium Level 4.3 mmol/L Chloride Level 97 mmol/L Carbon Dioxide Level 38 mmol/L Anion Gap 3.0 mmol/L Blood Urea Nitrogen 45 mg/dl Creatinine 1.70 mg/dl Est Creatinine Clear Calc Drug Dose 40.3 ml/min Estimated GFR () 34.3 Estimated GFR (Non- 29.6 BUN/Creatinine Ratio 26.5 Random Glucose 142 mg/dl Calcium Level 9.5 mg/dl Magnesium Level 2.4 mg/dl Troponin I < 0.015 ng/ml Test 10/25/16 11:33 Bedside Glucose 179 mg/dl Assessment & Plan ACUTE ON CHRONIC HYPOXEMIC RESPIRATORY FAILURE pt presented with worsening SOB; recent admission for same issue-started 2L continuous O2 and Lasix 80mg daily -multifactorial: Acute on Chronic Systolic CHF in setting of NICOLAS and obesity hypoventilation syndrome -Last Echo: LVEF: 20-25% -CXR: worsening pulmonary edema - Lasix changed to PO, starting tomorrow - Received Lasix IV 80mg and 40mg PO yesterday -cont carvedilol and digoxin -d/c nitro paste -Resumed home dose imdur -Continue monitor I/O - Creatine stable - Continue diuresis her (Maybe lasix 60mg BID) -Low salt diet/Fluid restriction - cardiology consulted - Clinically improved CHRONIC VENOUS STASIS ULCERS Daily wound care CAD -s/p stents placed in 2013 -Trop negative and EKG: no acute changes on admission -cont ASA, BB and statin - No chest pain PAROXYSMAL AFIB EKG showed LBBB with Afib -digoxin levels 0.6 -cont carvedilol, digoxin, amiodarone, apixaban -Cardiology consulted CKD STAGE IV -creatinine 1.7 (bl=1.7-1.9) -continue to monitor closely while on IV Lasix -avoid nephrotoxic agents when able DM 2 -recent A1C 7.7 -holding Prandin -start ISS -monitor BSG AC HS DYSLIPIDEMIA -cont statin DVT PROPHYLAXIS -cont Eliquis CODE STATUS DNR/DNI. Living will on chart. Consultants: Cardio Current Inpatient Medications: Current Inpatient Medications Medications (Trade) Dose Ordered Sig/Jose Route Start Time Stop Time Status Last Admin Dose Admin Acetaminophen (Tylenol Tab) 650 mg Q4H PRN PO 10/22/16 13:00 11/21/16 12:59 10/25/16 11:07 650 MG Ondansetron HCl (Zofran Inj) 4 mg Q6H PRN IV 10/22/16 13:00 11/21/16 12:59 Nitroglycerin (Nitrostat Tab) 0.4 mg UD PRN SL 10/22/16 13:00 11/21/16 12:59 Insulin Aspart (novoLOG ASPART) SLIDING SCALE If C... ACHS SC 10/22/16 16:30 11/21/16 16:29 10/25/16 08:17 5 UNITS Glucose (Glucose 40% Gel) 15-30 GRAMS 15 GRAMS... UD PRN PO 10/22/16 13:15 11/21/16 13:14 Glucose (Glucose Chew Tab) 4-8 Tablets 4 Tabl... UD PRN PO 10/22/16 13:15 11/21/16 13:14 Dextrose (Dextrose 50% 50ML Syringe) 25-50ML OF 50% DW IV FOR... UD PRN IV 10/22/16 13:15 11/21/16 13:14 Glucagon (Glucagon Inj) 1 mg UD PRN SQ 10/22/16 13:15 11/21/16 13:14 Amiodarone HCl (Cordarone Tab) 200 mg DAILY PO 10/22/16 13:30 11/21/16 13:29 10/25/16 08:10 200 MG Aspirin (Ecotrin Tab) 81 mg QAM PO 10/22/16 13:30 11/21/16 13:29 10/25/16 08:08 81 MG Bisacodyl (Dulcolax Supp) 10 mg DAILY PRN [place] 10/22/16 13:30 11/21/16 13:29 10/24/16 20:40 10 MG Carvedilol (Coreg Tab) 12.5 mg BID PO 10/22/16 13:30 11/21/16 13:29 10/25/16 08:09 12.5 MG Gabapentin (Neurontin Cap) 100 mg TID PO 10/22/16 14:00 11/21/16 13:59 10/25/16 08:13 100 MG Magnesium Hydroxide (Milk Of Magnesia Susp) 30 ml DAILY PRN PO 10/22/16 13:30 11/21/16 13:29 10/24/16 01:22 30 ML Magnesium Oxide (Mag-Ox Tab) 400 mg DAILY PO 10/23/16 09:00 11/22/16 08:59 10/25/16 08:12 400 MG Miconazole Nitrate (Desenex Powder) 1 appln DAILY PRN EXT 10/22/16 13:30 11/21/16 13:29 Nystatin (Mycostatin Oint) 1 appln BID EXT 10/22/16 21:00 11/21/16 20:59 10/25/16 08:20 1 APPLN Senna/Docusate Sodium (Senokot S Tab) 1 tab BID PO 10/22/16 21:00 11/21/16 20:59 10/25/16 08:15 1 TAB Simvastatin (Zocor Tab) 20 mg QPM PO 10/22/16 21:00 11/21/16 20:59 10/24/16 20:36 20 MG Apixaban (Eliquis Tab) 5 mg BID PO 10/22/16 21:00 5/28/17 20:59 10/25/16 08:10 5 MG Cholecalciferol (Vitamin D Tab) 2,000 inter.unit QAM PO 10/23/16 09:00 11/22/16 08:59 10/25/16 08:14 2,000 INTER.UNIT Ferrous Sulfate (Feosol Tab) 325 mg BIDM PO 10/22/16 17:00 11/21/16 17:59 10/25/16 08:07 325 MG Polyethylene (Miralax Powder Packet) 17 gm DAILY PO 10/23/16 09:00 11/22/16 08:59 10/25/16 08:15 17 GM Digoxin (Lanoxin Tab) 0.125 mg Q2D@1600 PO 10/22/16 16:00 11/21/16 15:59 10/22/16 17:47 0.125 MG Furosemide (Lasix Tab) 80 mg QAM PO 10/25/16 09:00 11/24/16 08:59 10/25/16 08:11 80 MG Isosorbide Mononitrate (Imdur Ext Rel Tab) 30 mg DAILY PO 10/26/16 09:00 11/25/16 08:59
--- NOTE | 2016-10-25 14:53 | CARDIOLOGY CONSULTATION ---
DATE OF CONSULTATION: 10/25/2016 DATE OF CONSULTATION: 10/25/2016. PERTINENT HISTORY: Mrs. Gudino is a 70-year-old white female with a complex past medical history who is well known to me from the inpatient outpatient setting. She was admitted on the 14 of October with the acute onset of shortness of breath. This consultation was ordered to assist in her cardiac management. The patient's recent history began on the day of presentation when she awoke from sleep acutely short of breath. She was brought to the Emergency Room and found to be tachycardic, tachypneic, and hypoxia. She was placed on BiPAP and given intravenous diuretics. The patient improved rapidly. The patient is treated for chronic systolic congestive heart failure. She does follow daily weights at home, however, it is uncertain as to her most recent "dry" weight. The patient's cardiac history began in April 2014 when she had 2 stents placed in the distal RCA at the [facility]. She did well until February 2015 when a cardiac catheterization revealed severe disease in the mid and distal LAD, which was nonintervenable. She had borderline stenosis in the mid left circumflex and patent stents in the distal right coronary artery. Medical management was recommended. The patient was diagnosed with an ischemic cardiomyopathy and had a single chamber ICD/pacemaker placed in February 2015. This was also done at the [facility]. I first met the patient in July 2015 when she presented to our institution in decompensated congestive heart failure and atrial fibrillation with a rapid ventricular response. She was started on carvedilol, digoxin, and Eliquis at that time. The patient underwent an elective cardioversion on 03/17/2016. She continues to note paroxysms of atrial fibrillation when her device was checked. Currently, the patient is resting comfortably in bed without complaints. PAST MEDICAL HISTORY: 1. Coronary artery disease -- see above. 2. Distal RCA stents -- April 2014. 3. Ischemic cardiomyopathy -- 20-25%. 4. Chronic systolic congestive heart failure. 5. Med[employer]onic VVI ICD -- February 2015. 6. Paroxysmal atrial flutter -- fibrillation. 7. Left bundle branch block. 8. Severe peripheral vascular disease. 9. Hypertension. 10. Hypercholesterolemia. 11. Diabetes mellitus. 12. Chronic renal failure. 13. GERD. 14. Cholelithiasis. 15. Nephrolithiasis. 16. History of uterine carcinoma -- XRT -- 2009. 17. Left retroareolar excision biopsy -- February 2016. 18. Osteomyelitis -- right third toe - July 2015. MEDICATIONS: 1. Carvedilol 12.5 mg b.i.d. 2. Imdur 30 mg daily. 3. Lasix 80 mg daily. 4. Magnesium oxide 400 mg daily. 5. Zocor 20 mg at bedtime. 6. Eliquis 5 mg b.i.d. 7. Digoxin 0.125 mg every other day. 8. Amiodarone 200 mg daily. 9. Aspirin 81 mg per day. 10. Neurontin 100 mg t.i.d. 11. Iron sulfate 325 mg b.i.d. 12. Senokot S 1 tablet b.i.d. 13. Vitamin D 2000 International Units daily. ALLERGIES: None. SOCIAL HISTORY: The patient is a resident at the [facility]. Does not use tobacco or alcohol. FAMILY HISTORY: Positive for early coronary artery disease. REVIEW OF SYSTEMS: A 10-point review of systems was negative except for that described above. PHYSICAL EXAMINATION: GENERAL: This is an elderly white female lying supine in bed without complaints. VITAL SIGNS: Blood pressure is 100/60 with an irregular pulse of 55. Respiratory was 18. The patient is afebrile at 36.5 degrees Celsius. Saturations 98% on 4 liters nasal cannula. HEAD, EYES, EARS, NOSE, AND THROAT: Negative. NECK: Supple. Full carotid upstrokes. No carotid bruits. Jugular venous pressure is 8 cm of water at 45 degrees. There is no thyromegaly. CARDIOVASCULAR EXAMINATION: Reveals an irregular rhythm with distant heart sounds. No obvious murmurs. No S3. CHEST: Reveals a palpable device in the left subclavicular region. LUNGS: Clear without rales, rhonchi, or wheezes. Breath sounds are diminished at the bases. ABDOMEN: Obese without bruits. EXTREMITIES: Reveal intact radial artery pulses bilaterally. 1-2+ pretibial edema is noted bilaterally with erythematous changes. LABORATORY DATA: CBC notes a hemoglobin of 10.8, hematocrit 38.8, white count 7.7, platelet count 186,000. Electrolytes note a sodium of 138, potassium 3.4, chloride 97, bicarbonate 38, BUN 45, creatinine 1.7, glucose 142. Two troponin I levels are undetectable at less than 0.015. Digoxin level is therapeutic at 0.6. Chest x-ray notes cardiomegaly, congestive changes, and an implantable device in the left subclavicular region. EKG notes atrial flutter with variable ventricular response. There is a complete left bundle branch block pattern noted. IMPRESSION: Mrs. Gudino was again admitted in decompensated congestive heart failure. She did not tolerate higher doses of carvedilol. Will discuss the possibility of converting her ICD to a biventricular device with our electrophysiologists. This may help improve her systolic function. PLAN: 1. Agree with continuation of usual outpatient cardiac medications. 2. Daily weights and sliding scale diuretics. 3. Discussed possibility of changing to a biventricular device with electrophysiology team. 4. Further recommendations depending on her clinical course.
[2016-10-25 15:30] VITALS: BP 111/69; PULSE 54; TEMP 36.3; O2SAT 96
[2016-10-25 20:09] VITALS: BP 126/62; PULSE 50; TEMP 36.4; O2SAT 98
[2016-10-25] MEDS: SIMVASTATIN 20 MG TAB PO SCH (20:56)
[2016-10-25] MEDS: BISACODYL 10 MG SUPP PR PRN (22:36)
[2016-10-26] VITALS (14 sets, daily range): BP systolic 112–167; BP diastolic 67–88; PULSE 55–105; TEMP 35.9–36.8; O2SAT 90–98
[2016-10-26 07:09] LABS: BUN/CREATININE RATIO 29.2 (10-20); CALCIUM 9.3 mg/dl (8.5-10.1); CREATININE 1.8 mg/dl (0.60-1.20); MAGNESIUM 2.7 mg/dl (1.8-2.4); POTASSIUM 4.7 mmol/L (3.5-5.1)
[2016-10-26] MEDS: MAGNESIUM OXIDE 400 MG TAB PO SCH (07:41)
[2016-10-26] MEDS: ASPIRIN 81 MG ECTAB PO SCH (07:41)
[2016-10-26] MEDS: POLYETHYLENE (MIRALAX) 17 GM PACK PO SCH (07:41)
[2016-10-26] MEDS: AMIODARONE 200 MG TAB PO SCH (07:41)
[2016-10-26] MEDS: CHOLECALCIFEROL 1000 INTER.UNIT TAB PO SCH (07:41)
[2016-10-26] MEDS: FUROSEMIDE 80 MG TAB PO SCH (07:42)
[2016-10-26] MEDS: DOCUSATE SODIUM/SENNA 50/8.6MG TAB PO SCH ×2 (07:42→21:00)
[2016-10-26] MEDS: GABAPENTIN 100 MG CAP PO SCH ×3 (07:42→21:00)
[2016-10-26] MEDS: APIXABAN 2.5 MG TAB PO SCH ×2 (07:42→21:00)
[2016-10-26] MEDS: ISOSORBIDE MONONITRATE 30 MG TABCR PO SCH (07:42)
[2016-10-26] MEDS: CARVEDILOL 12.5 MG TAB PO SCH ×2 (07:42→21:00)
[2016-10-26] MEDS: FERROUS SULFATE 325 MG TAB PO SCH ×2 (07:42→16:41)
[2016-10-26] MEDS: NYSTATIN OINT 15 GM TUBE EXT SCH ×2 (07:43→21:17)
[2016-10-26] MEDS: INSULIN ASPART 100 UNITS/ML 3 ML PEN SC SCH ×4 (08:42→21:12)
[2016-10-26] MEDS ORDERED: ISOSORBIDE MONONITRATE 30 MG TABCR PO SCH (09:00)
--- NOTE | 2016-10-26 13:15 | CARDIOLOGY PROGRESS NOTE ---
DATE: 10/26/2016 SUBJECTIVE: Mrs. Gudino is resting comfortably in bed without complaints of chest pain or dyspnea. She complains of insomnia overnight and is now fatigued. OBJECTIVE: VITAL SIGNS: Blood pressure is 117/78 with a regular pulse of 80. Respiratory rate is 18. The patient is afebrile at 36.8 degrees Celsius. Saturation is 97% on four liters nasal cannula. NECK: Supple with full carotid upstrokes. No obvious bruits. Jugular venous pressure is difficult to assess. There is no thyromegaly. CARDIOVASCULAR: Reveals an irregular rhythm with distant heart sounds. No obvious murmurs. No S3. CHEST: Reveals a palpable device in the left subclavicular region. LUNGS: Clear without rales, rhonchi or wheezes. ABDOMEN: Obese without bruits. EXTREMITIES: Reveal intact radial artery pulses bilaterally. Has 1-2+ pretibial edema is noted with chronic venous stasis changes. Her dressings are intact. DATA: PRP notes a sodium of 139, potassium 4.7, chloride 95, bicarbonate 41, BUN 53, creatinine 1.8 and glucose 144. IMPRESSION AND PLAN: 1. Acute on chronic systolic congestive heart failure -- patient is now on oral diuretics. She seems compensated. We will discuss the possibility of converting her implantable cardioverter defibrillator to a biventricular device with her electrophysiologists. 2. Coronary artery disease -- with distal right coronary artery stents in April 2014. Catheterization was done in February 2015 and noted severe non-intervenable disease in the mid and distal left anterior descending. Her right coronary stents were patent, medical management recommended at that time. 3. Ischemic cardiomyopathy -- ejection fraction of 20-25%. 4. Medtronic VVI implantable cardioverter defibrillator -- February 2015. 5. Paroxysmal atrial flutter/fibrillation. 6. Left bundle branch block. 7. Severe peripheral vascular disease. 8. Hypertension. 9. Hypercholesterolemia. 10. Diabetes mellitus. 11. Chronic renal failure.
--- NOTE | 2016-10-26 14:52 | Progress Note ---
Internal Med Progress Note Date of Service: October 26, 2016. Provider Documentation: SUBJECTIVE: The patient was seen and examined Remains generally weak Denies any symptoms OBJECTIVE: Vital Signs-as noted below Exam: General-No distress atv rest Eyes-normal ENT-normal Neck-supple Lungs-Decreased breath sound bilaterally No crackles were audible Heart-Regular Abdomen-Benign,no masses,bowel sound present Extremities-1+ Edema bilaterally Getting better Neuro-AAOx3 Lab data as noted below. ASSESSMENT & PLAN: ACUTE ON CHRONIC HYPOXEMIC RESPIRATORY FAILURE -Patient presented with worsening SOB; recent admission for same issue-started 2L continuous O2 and Lasix 80mg daily -Complicated by Acute on Chronic Systolic CHF in setting of NICOLAS and obesity hypoventilation syndrome -Last Echo: LVEF: 20-25% -CXR: worsening pulmonary edema -Received IV Lasix on Admission and now on Oral maintenance dose -Cont carvedilol and digoxin -Low salt diet/Fluid restriction - cardiology consulted-appreciate Input-may need to check ICD for possible change -clinically better CAD -s/p stents placed in 2013 -Trop negative and EKG: no acute changes on admission -cont ASA, BB and statin - No symptoms reported PAROXYSMAL AFIB EKG showed LBBB with Afib -digoxin levels 0.6 -cont carvedilol, digoxin, amiodarone, apixaban -rate controlled and asymptomatic CKD STAGE IV -creatinine 1.7 (bl=1.7-1.9) -continue to monitor closely while on IV Lasix -renal function may get worse with IV Lasix -avoid nephrotoxic agents when able -Will monitor Renal function DM 2 -recent A1C 7.7 -hold Prandin -start ISS -monitor BSG AC HS CHRONIC VENOUS STASIS ULCERS Daily wound care DYSLIPIDEMIA -cont statin DVT PROPHYLAXIS -cont Eliquis CODE STATUS DNR/DNI. Living will on chart. Consultants: Cardiology DISPOSITION Awaited Vital Signs: Date Time Temp Pulse Resp B/P Pulse Ox O2 Delivery O2 Flow Rate FiO2 10/26/16 12:00 Nasal Cannula 4.0 10/26/16 11:08 100 19 117/78 97 Nasal Cannula 4.0 10/26/16 08:05 36.3 104 18 162/88 97 Nasal Cannula 4.0 Humidified Oxygen 10/26/16 08:00 Nasal Cannula 4.0 10/26/16 04:01 98 Nasal Cannula 4.0 10/26/16 04:00 36.8 101 20 119/79 98 4.0 10/26/16 00:00 98 Nasal Cannula 4.0 10/25/16 20:09 36.4 50 18 126/62 98 Nasal Cannula 4.0 10/25/16 20:00 Nasal Cannula 4.0 10/25/16 16:00 Room Air 10/25/16 15:30 36.3 54 18 111/69 96 Nasal Cannula 4.0 Lab Results: Results Past 24 Hours Test 10/25/16 16:24 10/25/16 20:26 10/26/16 06:03 10/26/16 07:46 Range/Units Bedside Glucose 194 189 145 70-90 mg/dl Sodium Level 139 136-145 mmol/L Potassium Level 4.7 3.5-5.1 mmol/L Chloride Level 95 98-107 mmol/L Carbon Dioxide Level 41 21-32 mmol/L Anion Gap 3.0 3-11 mmol/L Blood Urea Nitrogen 53 7-18 mg/dl Creatinine 1.80 0.60-1.20 mg/dl Est Creatinine Clear Calc Drug Dose 38.1 ml/min Estimated GFR () 32.0 Estimated GFR (Non- 27.6 BUN/Creatinine Ratio 29.2 10-20 Random Glucose 144 70-99 mg/dl Calcium Level 9.3 8.5-10.1 mg/dl Magnesium Level 2.7 1.8-2.4 mg/dl Test 10/26/16 11:19 Range/Units Bedside Glucose 215 70-90 mg/dl
[2016-10-26] MEDS: DIGOXIN 0.125 MG TAB PO SCH (16:41)
[2016-10-26] MEDS ORDERED: ALBUT/IPRATROP 3MG/0.5MG NEB 3 ML VIAL INH STA (19:58)
[2016-10-26] MEDS ORDERED: ALBUT/IPRATROP 3MG/0.5MG NEB 3 ML VIAL INH PRN (20:00)
--- NOTE | 2016-10-26 20:09 | DIAGNOSTIC IMAGING REPORT ---
CHEST ONE VIEW PORTABLE CLINICAL HISTORY: Respiratory distress. COMPARISON STUDY: Chest radiograph October 25, 2016. FINDINGS: A left subclavian pacer/AICD remains in place. Moderate cardiomegaly is unchanged. No pneumothorax is present. There are suspected small bilateral pleural effusions. This exam is compromised by suboptimal penetration related to portable technique and body habitus. Bilateral opacities persist. Interstitial thickening has likely improved. Persistent bibasilar opacities are noted. IMPRESSION: Interstitial thickening and bilateral opacities which have slightly improved since prior exam. Differential considerations include pulmonary edema and pneumonia. Electronically signed by: Tyler Riddle M.D. 10/26/2016 8:07 PM Dictated Date/Time: 10/26/2016 8:06 PM
[2016-10-26] MEDS ORDERED: FUROSEMIDE INJ 80 MG in SYRINGE 0 ML IV STA (20:11)
[2016-10-26 20:37] LABS: BASO % 0.2 %; BASO ABS # 0.02 K/uL (0-0.2); COMPLETE YES; EOS % 1.8 %; HEMATOCRIT 39.2 % (37-47); IG% 0.4 %; LYMPH % 3.8 %; LYMPH ABS # 0.32 K/uL (1.2-3.4); MEAN CELL VOLUME 97.5 fL (80-100); MEAN CORPUSCULAR HEMOGLOBIN 26.9 pg (25-34); MEAN CORPUSCULAR HGB CONC 27.6 g/dl (32-36); MEAN PLATELET VOLUME 8.7 fL (7.4-10.4); MONO % 7.1 %; NEUT % 86.7 %; PLATELET COUNT 196 K/uL (130-400); RED BLOOD COUNT 4.02 M/uL (4.2-5.4); WHITE BLOOD COUNT 8.34 K/uL (4.8-10.8)
[2016-10-26 20:42] LABS: CALCIUM 9.5 mg/dl (8.5-10.1); PARTIAL THROMBOPLASTIN RATIO 1.3
[2016-10-26 20:45] LABS: BUN/CREATININE RATIO 29.1 (10-20); CREATININE 1.8 mg/dl (0.60-1.20); MAGNESIUM 2.5 mg/dl (1.8-2.4); POTASSIUM 5.1 mmol/L (3.5-5.1)
[2016-10-26] MEDS: SIMVASTATIN 20 MG TAB PO SCH (21:00)
[2016-10-26 21:47] LABS: ARTERIAL BLD GAS O2 SATURATION 91.3 % (90-95); ARTERIAL BLOOD GAS BASE EXCESS 10.2 mEq/L (-9-1.8); ARTERIAL BLOOD GAS HCO3 39 mmol/L (19-24); ARTERIAL BLOOD GAS PO2 72 mm/Hg (80-95); ARTERIAL BLOOD GAS pH 7.31 (7.35-7.45)
[2016-10-26 21:56] LABS: ALLEN TEST POS (POS); O2 ADMINISTRATION 8 LITERS
[2016-10-26 23:23] LABS: ARTERIAL BLD GAS O2 SATURATION 86.7 % (90-95); ARTERIAL BLOOD GAS BASE EXCESS 12.5 mEq/L (-9-1.8); ARTERIAL BLOOD GAS HCO3 41 mmol/L (19-24); ARTERIAL BLOOD GAS PO2 55 mm/Hg (80-95); ARTERIAL BLOOD GAS pH 7.35 (7.35-7.45)
[2016-10-26 23:24] LABS: ALLEN TEST POS (POS); O2 ADMINISTRATION 5L
[2016-10-27] VITALS (11 sets, daily range): BP systolic 103–124; BP diastolic 58–88; PULSE 52–107; TEMP 36.3–37.2; O2SAT 92–99
[2016-10-27] MEDS: LEVALBUTEROL 1.25MG/0.5ML NEB INH SCH ×4 (02:15→20:06)
[2016-10-27] MEDS: IPRATROPIUM BROMIDE NEB SOLN 0.02% 2.5 ML VIAL INH SCH ×4 (02:15→20:06)
[2016-10-27] MEDS ORDERED: LEVALBUTEROL/IPRATROPIUM NEB INH SCH (03:00)
[2016-10-27] MEDS: ISOSORBIDE MONONITRATE 30 MG TABCR PO SCH (08:10)
[2016-10-27] MEDS: FUROSEMIDE 80 MG TAB PO SCH (08:10)
[2016-10-27] MEDS: CHOLECALCIFEROL 1000 INTER.UNIT TAB PO SCH (08:11)
[2016-10-27] MEDS: DOCUSATE SODIUM/SENNA 50/8.6MG TAB PO SCH ×2 (08:11→19:53)
[2016-10-27] MEDS: ASPIRIN 81 MG ECTAB PO SCH (08:11)
[2016-10-27] MEDS: CARVEDILOL 12.5 MG TAB PO SCH ×2 (08:11→19:55)
[2016-10-27] MEDS: MAGNESIUM OXIDE 400 MG TAB PO SCH (08:11)
[2016-10-27] MEDS: AMIODARONE 200 MG TAB PO SCH (08:11)
[2016-10-27] MEDS: FERROUS SULFATE 325 MG TAB PO SCH ×2 (08:12→17:03)
[2016-10-27] MEDS: GABAPENTIN 100 MG CAP PO SCH ×3 (08:12→19:53)
[2016-10-27] MEDS: POLYETHYLENE (MIRALAX) 17 GM PACK PO SCH (08:12)
[2016-10-27] MEDS: APIXABAN 2.5 MG TAB PO SCH ×2 (08:12→19:53)
[2016-10-27] MEDS: NYSTATIN OINT 15 GM TUBE EXT SCH ×2 (08:12→19:53)
[2016-10-27] MEDS: INSULIN ASPART 100 UNITS/ML 3 ML PEN SC SCH ×4 (08:24→19:59)
[2016-10-27] MEDS ORDERED: NURSING VERBAL MED ORDER ONE (09:45)
--- NOTE | 2016-10-27 11:36 | CARDIOLOGY PROGRESS NOTE ---
DATE: 10/27/2016 SUBJECTIVE: Mrs. Gudino is resting comfortably in bed reading a book. She denies chest pain, dyspnea, PND, and orthopnea. OBJECTIVE: VITAL SIGNS: Blood pressure 124/88 with a regular pulse of 90. Respiratory rate is 18 and the patient is afebrile at 36.3 degrees Celsius. Saturations 98% on 6 liters nasal cannula. NECK: Supple with full carotid upstrokes. There are no obvious bruits. Jugular venous pressure is flat at 90 degrees. There is no thyromegaly. CARDIOVASCULAR: Reveals a regular rhythm with distant heart sounds. No obvious murmurs. No S3. CHEST: Reveals a palpable device in the left subclavicular region. LUNGS: Clear without rales, rhonchi, or wheezes. ABDOMEN: Obese without bruits. EXTREMITIES: Reveal intact radial artery pulses bilaterally. 1-2+ pretibial edema is noted with chronic venous stasis changes. Dressings are intact. DATA: Electrolytes note a sodium of 137, potassium 5.1, chloride 95, bicarb 38, BUN 52, creatinine 1.8, glucose 238. monitoring analyst notes paroxysms of atrial flutter with a controlled ventricular response. IMPRESSION AND PLAN: 1. Acute on chronic systolic congestive heart failure -- patient now stable on oral diuretics. Her weight has stabilized at 107 kilograms. Continue to optimize medical management. Consider changing from single chamber to a biventricular device. 2. Coronary artery disease -- with distal right coronary artery stents in April 2014. Catheterization done in February 2015 noted severe nonintervenable mid and distal LAD disease. Her right coronary stents were patent. Medical management recommended. 3. Ischemic cardiomyopathy -- ejection fraction of 20-25%. 4. Medtronic VVI implantable cardioverter defibrillator -- 02/2015. 5. Paroxysmal atrial fibrillation/flutter. 6. Left bundle branch block. 7. Severe peripheral vascular disease. 8. Hypertension. 9. Hypercholesterolemia. 10. Diabetes mellitus. 11. Chronic renal failure.
--- NOTE | 2016-10-27 12:16 | Progress Note ---
Internal Med Progress Note Date of Service: October 27, 2016. Provider Documentation: SUBJECTIVE: The patient was seen and examined Denies any symptoms except weakness Clinically a little better OBJECTIVE: Vital Signs-as noted below Exam: General-Obese No distress at rest Eyes-normal ENT-normal Neck-supple Lungs-Decreased breath sound bilaterally No crackles were audible Heart-Regular Abdomen-Benign,no masses,bowel sound present Extremities-1+ Edema bilaterally,chronic in nature Getting better Neuro-AAOx3 Lab data as noted below. ASSESSMENT & PLAN: ACUTE ON CHRONIC HYPOXEMIC RESPIRATORY FAILURE -Patient presented with worsening SOB; recent admission for same issue-started 2L continuous O2 and Lasix 80mg daily -Complicated by Acute on Chronic Systolic CHF in setting of NICOLAS and obesity hypoventilation syndrome -Last Echo: LVEF: 20-25% -CXR: worsening pulmonary edema -Received IV Lasix on Admission and now on Oral maintenance dose -Cont carvedilol and digoxin -Low salt diet/Fluid restriction - cardiology consulted-appreciate Input-may need to check ICD for possible change -Diuresed a lot and clinically shows improvement -increase mobility -PT/OT CAD -s/p stents placed in 2013 -s/p Medtronic VVI implantable cardioverter defibrillator -- 02/2015 -Trop negative and EKG: no acute changes on admission -cont ASA, BB and statin - No symptoms reported PAROXYSMAL AFIB EKG showed LBBB with Afib -digoxin levels 0.6 -cont carvedilol, digoxin, amiodarone, apixaban -rate controlled and asymptomatic CKD STAGE IV -creatinine 1.7 (bl=1.7-1.9) -continue to monitor closely while on IV Lasix -renal function may get worse with IV Lasix -avoid nephrotoxic agents when able -Renal function is slightly worse DM 2 -recent A1C 7.7 -hold Prandin -start ISS -monitor BSG AC HS CHRONIC VENOUS STASIS ULCERS Daily wound care DYSLIPIDEMIA -cont statin DVT PROPHYLAXIS -cont Eliquis CODE STATUS DNR/DNI. Living will on chart. Consultants: Cardiology DISPOSITION Awaited Vital Signs: Date Time Temp Pulse Resp B/P Pulse Ox O2 Delivery O2 Flow Rate FiO2 10/27/16 11:44 36.6 66 18 117/63 97 4.0 10/27/16 08:00 Nasal Cannula 6.0 10/27/16 07:15 36.3 99 18 124/88 98 BiPAP 8.0 10/27/16 06:59 98 97 8.0 10/27/16 06:58 98 20 97 BiPAP/CPAP 8.0 10/27/16 05:23 37.2 98 22 113/69 92 BiPAP 10/27/16 05:15 93 92 8.0 10/27/16 04:00 BiPAP 4.0 10/27/16 02:15 107 20 94 BiPAP/CPAP 8.0 10/27/16 02:15 107 94 8.0 10/27/16 00:00 BiPAP 4.0 10/26/16 23:16 35.9 104 20 167/68 98 BiPAP 10/26/16 22:39 105 94 8.0 10/26/16 21:10 99 113/71 10/26/16 20:28 98 90 9.0 10/26/16 20:26 98 20 90 BiPAP/CPAP 9.0 10/26/16 19:49 36.5 90 18 112/67 90 Nasal Cannula 5.0 10/26/16 19:30 90 Nasal Cannula 4.5 10/26/16 16:41 96 10/26/16 16:00 91 Nasal Cannula 4.0 10/26/16 15:46 36.5 55 16 125/80 91 Nasal Cannula 4.0 Lab Results: Results Past 24 Hours Test 10/26/16 16:14 10/26/16 20:09 10/26/16 20:15 10/26/16 21:30 Range/Units Bedside Glucose 174 255 70-90 mg/dl White Blood Count 8.34 4.8-10.8 K/uL Red Blood Count 4.02 4.2-5.4 M/uL Hemoglobin 10.8 12.0-16.0 g/dL Hematocrit 39.2 37-47 % Mean Corpuscular Volume 97.5 80-100 fL Mean Corpuscular Hemoglobin 26.9 25-34 pg Mean Corpuscular Hemoglobin Concent 27.6 32-36 g/dl Platelet Count 196 130-400 K/uL Mean Platelet Volume 8.7 7.4-10.4 fL Neutrophils (%) (Auto) 86.7 % Lymphocytes (%) (Auto) 3.8 % Monocytes (%) (Auto) 7.1 % Eosinophils (%) (Auto) 1.8 % Basophils (%) (Auto) 0.2 % Neutrophils # (Auto) 7.23 1.4-6.5 K/uL Lymphocytes # (Auto) 0.32 1.2-3.4 K/uL Monocytes # (Auto) 0.59 0.11-0.59 K/uL Eosinophils # (Auto) 0.15 0-0.5 K/uL Basophils # (Auto) 0.02 0-0.2 K/uL RDW Standard Deviation 65.7 36.4-46.3 fL RDW Coefficient of Variation 18.3 11.5-14.5 % Immature Granulocyte % (Auto) 0.4 % Immature Granulocyte # (Auto) 0.03 0.00-0.02 K/uL Activated Partial Thromboplast Time 33.1 21.0-31.0 SECONDS Partial Thromboplastin Ratio 1.3 Sodium Level 137 136-145 mmol/L Potassium Level 5.1 3.5-5.1 mmol/L Chloride Level 95 98-107 mmol/L Carbon Dioxide Level 38 21-32 mmol/L Anion Gap 4.0 3-11 mmol/L Blood Urea Nitrogen 52 7-18 mg/dl Creatinine 1.80 0.60-1.20 mg/dl Est Creatinine Clear Calc Drug Dose 38.1 ml/min Estimated GFR () 32.0 Estimated GFR (Non- 27.6 BUN/Creatinine Ratio 29.1 10-20 Random Glucose 238 70-99 mg/dl Calcium Level 9.5 8.5-10.1 mg/dl Magnesium Level 2.5 1.8-2.4 mg/dl Digoxin Level 1.2 0.8-2.0 ng/ml Arterial Blood pH 7.31 7.35-7.45 Arterial Blood Partial Pressure CO2 80 35-46 mmHg Arterial Blood Partial Pressure O2 72 80-95 mm/Hg Arterial Blood HCO3 39 19-24 mmol/L Arterial Blood Oxygen Saturation 91.3 90-95 % Arterial Blood Base Excess 10.2 -9-1.8 mEq/L Arterial Blood Gas Delivery 8 LITERS Wing Test POS POS Test 10/26/16 23:15 10/27/16 07:25 10/27/16 11:29 Range/Units Arterial Blood pH 7.35 7.35-7.45 Arterial Blood Partial Pressure CO2 76 35-46 mmHg Arterial Blood Partial Pressure O2 55 80-95 mm/Hg Arterial Blood HCO3 41 19-24 mmol/L Arterial Blood Oxygen Saturation 86.7 90-95 % Arterial Blood Base Excess 12.5 -9-1.8 mEq/L Arterial Blood Gas Delivery 5L Wing Test POS POS Bedside Glucose 134 241 70-90 mg/dl
[2016-10-27] MEDS: SIMVASTATIN 20 MG TAB PO SCH (19:53)
[2016-10-28] VITALS (15 sets, daily range): BP systolic 93–147; BP diastolic 52–68; PULSE 51–83; TEMP 36.4–36.8; O2SAT 96–99
[2016-10-28] MEDS: LEVALBUTEROL 1.25MG/0.5ML NEB INH SCH ×4 (02:00→19:37)
[2016-10-28] MEDS: IPRATROPIUM BROMIDE NEB SOLN 0.02% 2.5 ML VIAL INH SCH ×4 (02:00→19:37)
[2016-10-28] MEDS: MAGNESIUM HYDROXIDE SUSP 30 ML UDC PO PRN (06:31)
[2016-10-28 07:30] LABS: CREATININE 1.8 mg/dl (0.60-1.20)
[2016-10-28] MEDS: FERROUS SULFATE 325 MG TAB PO SCH ×2 (08:37→17:42)
[2016-10-28] MEDS: FUROSEMIDE 80 MG TAB PO SCH (08:37)
[2016-10-28] MEDS: AMIODARONE 200 MG TAB PO SCH (08:37)
[2016-10-28] MEDS: ASPIRIN 81 MG ECTAB PO SCH (08:37)
[2016-10-28] MEDS: ISOSORBIDE MONONITRATE 30 MG TABCR PO SCH (08:37)
[2016-10-28] MEDS: GABAPENTIN 100 MG CAP PO SCH ×3 (08:38→20:56)
[2016-10-28] MEDS: DOCUSATE SODIUM/SENNA 50/8.6MG TAB PO SCH ×2 (08:38→20:57)
[2016-10-28] MEDS: CHOLECALCIFEROL 1000 INTER.UNIT TAB PO SCH (08:38)
[2016-10-28] MEDS: POLYETHYLENE (MIRALAX) 17 GM PACK PO SCH (08:39)
[2016-10-28] MEDS: MAGNESIUM OXIDE 400 MG TAB PO SCH (08:39)
[2016-10-28] MEDS: APIXABAN 2.5 MG TAB PO SCH ×2 (08:39→20:56)
[2016-10-28] MEDS: CARVEDILOL 12.5 MG TAB PO SCH ×2 (08:40→20:55)
[2016-10-28] MEDS: NYSTATIN OINT 15 GM TUBE EXT SCH ×2 (08:41→20:56)
[2016-10-28] MEDS: INSULIN ASPART 100 UNITS/ML 3 ML PEN SC SCH ×4 (08:45→20:52)
--- NOTE | 2016-10-28 10:05 | CARDIOLOGY PROGRESS NOTE ---
DATE: 10/28/2016 DATE: 10/28/2016. SUBJECTIVE: Mrs. Gudino is resting comfortably in bedside chair without complaints of chest pain or dyspnea. She is anxious for hospital discharge. I have discussed a procedure to upgrade her defibrillator to a biventricular device. She voices an understanding and agrees to proceed. OBJECTIVE: VITAL SIGNS: Blood pressure is 102/63 with a regular pulse of 65. Respiratory rate is 20. The patient is afebrile at 36.6 degrees Celsius. Saturations 96% on 4 liters nasal cannula. NECK: Supple with full carotid upstrokes. No obvious bruits. Jugular venous pressure is flat at 90 degrees. There is no thyromegaly. CARDIOVASCULAR EXAMINATION: Reveals a regular rhythm with distant heart sounds. No obvious murmurs. No S3. CHEST: Reveals a palpable device in the left subclavicular region. LUNGS: Clear without rales, rhonchi, or wheezes. ABDOMEN: Obese without bruits. EXTREMITIES: Reveal intact radial artery pulses bilaterally. 1-2+ pretibial edema noted with chronic venous stasis changes. DATA: Electrolytes are significant for creatinine of 1.8. Digoxin level is normal at 1.2. api architect notes paroxysms of atrial flutter. IMPRESSION AND PLAN: 1. Acute on chronic systolic congestive heart failure -- patient now compensated. She is on maximal tolerated medications. Have discussed change from single chamber to a biventricular device with Dr. Cordero. He plans to meet with the patient later today and will make arrangements to do so. 2. Coronary artery disease -- with distal right coronary artery stents April 2014. Cardiac catheterization done February 2015 noted severe nonintervenable disease in the LAD. Her right coronary stents were patent. Medical management was recommended. 3. Ischemic cardiomyopathy -- ejection fraction 20-25%. 4. Medtronic VVI implantable cardioverter defibrillator - February 2015. 5. Paroxysmal atrial fibrillation/flutter. 6. Left bundle branch block. 7. Severe peripheral vascular disease. 8. Hypertension 9. Hypercholesterolemia. 10. Diabetes mellitus. 11. Chronic renal failure.
--- NOTE | 2016-10-28 13:22 | CARDIOLOGY CONSULTATION ---
DATE OF CONSULTATION: 10/28/2016 DATE OF CONSULTATION: 10/28/2016. REFERRING PHYSICIAN: Dr. Painting. CHIEF COMPLAINT: Heart failure. HISTORY OF PRESENT ILLNESS: Mrs. Allyn Gudino is a 70-year-old woman with a history of ischemic cardiomyopathy status post implantation of a single chamber ICD in 2014. The patient has had multiple admissions for decompensated congestive heart failure over the past few months and I was asked to evaluate her for possible upgrade of her ICD to a biventricular device. The patient states that currently her breathing has improved. She did notice prior to admission a fairly acute episode of dyspnea which involved an element of paroxysmal nocturnal dyspnea and orthopnea. She is brought to [facility] where she underwent diuresis with improvement in her symptoms. She did not have any associated chest discomfort. She is not aware of any associated palpitations or rapid heartbeats. She did not describe significant dizziness, lightheadedness and has not suffered a syncopal episode. When she is feeling well she is able to ambulate on her own with a walker. She is able to ambulate to the bathroom and back without limiting dyspnea. She does little other physical activity; however and does require some assistance even with transfers for bathing. The patient claims to lay flat in bed to sleep. She denies significant peripheral edema. PAST MEDICAL HISTORY: Significant for: 1. Aforementioned coronary artery disease with percutaneous intervention involving the right coronary artery and note disease in the left anterior descending distribution that is not amenable to percutaneous intervention. 2. Associated ischemic cardiomyopathy with last ejection fraction measured 20-25%. 3. Atrial fibrillation and flutter, paroxysmal. 4. Bundle branch block. 5. Hypertension. 6. Peripheral vascular disease. 7. Hyperlipidemia. 8. Diabetes mellitus. 9. Chronic renal insufficiency with baseline creatinine between 1.5 and 1.8. 10. Gastroesophageal reflux disease. 11. Cholecystitis. 12. Nephrolithiasis. 13. Uterine cancer status post x-ray therapy in 2009. 14. History of osteomyelitis. PAST SURGICAL HISTORY: Includes the aforementioned Medtronic ICD implant in 2014, history of breast biopsy 2016. OUTPATIENT MEDICAL THERAPY: Included carvedilol, Imdur, Lasix, magnesium, simvastatin, Eliquis, digoxin, amiodarone, aspirin, Neurontin and a variety of supplements. MEDICAL ALLERGIES: None. SOCIAL HISTORY: The patient denies a history of tobacco or alcohol abuse. Currently lives at the [facility]. FAMILY HISTORY: Significant for coronary disease. REVIEW OF SYSTEMS: A complete 10-system review of systems was performed and the pertinent positives noted in the history of present illness, the remainder being negative. PHYSICAL EXAMINATION: GENERAL: The patient does not appear to be in acute distress. She is a pleasant individual who was alert and oriented. She answered all questions appropriately. CURRENT VITAL SIGNS: Include blood pressure 102/63 with pulse of 66. HEAD, EYES, EARS, NOSE, AND THROAT: Sclerae are anicteric. Pupils equal, reactive to light and accommodation. Extraocular movements appear to be intact. There was no evidence of lymphadenopathy in the submandibular region. The carotids are palpable bilaterally. I do not appreciate any bruits on auscultation. There was no jugular venous distention, although she was sitting strain upright. There is no thyromegaly. LUNGS: Auscultation of both lung ortez revealed occasional crackles in the bases bilaterally, but overall good air movement without expiratory wheezing. She had normal respiratory effort without use of accessory muscles. CARDIAC EXAMINATION: Revealed her to be in an irregularly irregular rhythm, but I do not appreciate any murmurs on exam. PMI was not markedly displaced on palpation, she had a well-healed ICD in the left upper pectoral area, nontender to palpation. EXTREMITIES: Evaluation of both wrists revealed radial pulses that were equal in intensity. There is no evidence of cyanosis or clubbing. Evaluation of lower extremities did not reveal any significant peripheral edema. I did not appreciate any rashes on exam today. LABORATORY STUDIES: Currently include a white cell count of 8.3, hemoglobin of 10, platelet count of 196. Sodium is 137, potassium is 5.1, creatinine was 1.8, BUN was 52. Recent chest x-ray revealed the patient to have evidence of pulmonary vascular congestion which improved from prior studies. I reviewed the patient's 12-lead EKG as well as her telemetry. She does have what appears to be an organized atrial rhythm, likely atrial flutter and a left bundle branch block morphology on her EKG with a QRS duration of 146 milliseconds currently. ASSESSMENT AND PLAN: Acute decompensated congestive heart failure: The patient has had several admissions for decompensation of her congestive heart failure. She does have a left bundle branch block morphology on her EKG and is on optimal medical therapy. While the lack of sinus rhythm will attenuate any benefit from addition of a left ventricular lead it would seem reasonable to upgrade her device in the hopes that this would prevent additional admission. QRS duration varies but on occasion is greater than 150 milliseconds would suggest a good chance of significant response. She does have an element of renal insufficiency and we would need to be careful with respect to concrete administration, although the procedure can generally be done with very little contrast. She also is fully anticoagulated with Eliquis, which revealed it to be held for 1 day, noted to lower the risk of bleeding during the procedure. I did discuss the procedure and the potential risks with the patient today and she is willing to proceed and given her improved clinical response and likelihood that she will be discharged in the next 24 hours I think this can be accomplished as an outpatient.
--- NOTE | 2016-10-28 14:04 | Progress Note ---
Internal Med Progress Note Date of Service: October 28, 2016. Provider Documentation: SUBJECTIVE: The patient was seen and examined Denies any symptoms except weakness Clinically a much better Getting pt OOB in a chair reading newspaper OBJECTIVE: Vital Signs-as noted below Exam: General-Obese No distress at rest Eyes-normal ENT-normal Neck-supple Lungs-Decreased breath sound bilaterally No crackles were audible Heart-Regular Abdomen-Benign,no masses,bowel sound present Extremities-1+ Edema bilaterally,chronic in nature -IMPROVED Neuro-AAOx3 Lab data as noted below. ASSESSMENT & PLAN: ACUTE ON CHRONIC HYPOXEMIC RESPIRATORY FAILURE -Patient presented with worsening SOB; recent admission for same issue-started 2L continuous O2 and Lasix 80mg daily -Complicated by Acute on Chronic Systolic CHF in setting of NICOLAS and obesity hypoventilation syndrome -Last Echo: LVEF: 20-25% -CXR: worsening pulmonary edema -Received IV Lasix on Admission and now on Oral maintenance dose -Cont carvedilol and digoxin -Low salt diet/Fluid restriction - cardiology consulted-appreciate Input-may need to check ICD for possible change -Diuresed a lot and clinically shows improvement -increase mobility -PT/OT -Clinically a lot better -discussed with the SON -Discussed with the Float Nurse -likely to be discharged in a day or two -appreciate EP input for possible ICD cahnge as an OP CAD -s/p stents placed in 2013 -s/p Medtronic VVI implantable cardioverter defibrillator -- 02/2015 -Trop negative and EKG: no acute changes on admission -cont ASA, BB and statin - No symptoms reported PAROXYSMAL AFIB EKG showed LBBB with Afib -digoxin levels 0.6 -cont carvedilol, digoxin, amiodarone, apixaban -rate controlled and asymptomatic CKD STAGE IV -creatinine 1.7 (bl=1.7-1.9) -continue to monitor closely while on IV Lasix -renal function may get worse with IV Lasix -avoid nephrotoxic agents when able -Renal function is slightly worse DM 2 -recent A1C 7.7 -hold Prandin -start ISS -monitor BSG AC HS CHRONIC VENOUS STASIS ULCERS Daily wound care DYSLIPIDEMIA -cont statin DVT PROPHYLAXIS -cont Eliquis CODE STATUS DNR/DNI. Living will on chart. Consultants: Cardiology DISPOSITION Likely home in a day or two Vital Signs: Date Time Temp Pulse Resp B/P Pulse Ox O2 Delivery O2 Flow Rate FiO2 10/28/16 12:00 Nasal Cannula 4.0 10/28/16 10:56 36.7 59 16 93/57 98 Nasal Cannula 4.0 10/28/16 08:00 Nasal Cannula 4.0 10/28/16 07:12 70 20 96 Nasal Cannula 4.0 10/28/16 06:47 36.6 66 22 102/63 97 Nasal Cannula 8.0 10/28/16 04:20 36.8 51 18 103/52 97 8.0 10/28/16 04:00 97 Nasal Cannula 4.0 10/28/16 02:00 73 20 97 Nasal Cannula 4.0 10/28/16 00:16 36.5 70 16 101/68 98 Nasal Cannula 4.0 10/28/16 00:00 97 Nasal Cannula 4.0 10/27/16 20:07 72 20 97 Nasal Cannula 4.0 10/27/16 20:00 97 Nasal Cannula 4.0 10/27/16 19:29 36.8 55 20 103/58 99 Nasal Cannula 4.0 10/27/16 16:00 Nasal Cannula 4.0 10/27/16 14:01 52 20 98 Nasal Cannula 4.0 Lab Results: Results Past 24 Hours Test 10/27/16 16:25 10/27/16 19:54 10/28/16 06:23 10/28/16 07:24 Range/Units Bedside Glucose 158 166 119 70-90 mg/dl Creatinine 1.80 0.60-1.20 mg/dl Est Creatinine Clear Calc Drug Dose 38.3 ml/min Estimated GFR () 32.0 Estimated GFR (Non- 27.6 Test 10/28/16 11:40 Range/Units Bedside Glucose 277 70-90 mg/dl
[2016-10-28] MEDS: DIGOXIN 0.125 MG TAB PO SCH (16:00)
[2016-10-28] MEDS: BISACODYL 10 MG SUPP PR PRN (20:15)
[2016-10-28] MEDS ORDERED: GLUCOSE 40% GEL 15 GM TUBE PO PRN (20:30)
[2016-10-28] MEDS ORDERED: GLUCOSE 10 TABS/TUBE PO PRN (20:30)
[2016-10-28] MEDS ORDERED: DEXTROSE 50% 50 ML SYR IV PRN (20:30)
[2016-10-28] MEDS ORDERED: GLUCAGON FOR INJ 1 MG VIAL SQ PRN (20:30)
[2016-10-28] MEDS: MICONAZOLE NITRATE POWDER 43 GM EXT PRN (20:56)
[2016-10-28] MEDS: SIMVASTATIN 20 MG TAB PO SCH (20:57)
[2016-10-28] MEDS ORDERED: INSULIN GLARGINE SOLOSTAR 100 UNITS/ML 3 ML PEN SC ONE (21:00)
[2016-10-29] VITALS (13 sets, daily range): BP systolic 96–115; BP diastolic 54–72; PULSE 51–64; TEMP 36.3–36.7; O2SAT 90–100
[2016-10-29] MEDS: IPRATROPIUM BROMIDE NEB SOLN 0.02% 2.5 ML VIAL INH SCH ×4 (02:07→18:59)
[2016-10-29] MEDS: LEVALBUTEROL 1.25MG/0.5ML NEB INH SCH ×4 (02:07→18:59)
[2016-10-29 07:30] LABS: HEMATOCRIT 36.1 % (37-47); MEAN CORPUSCULAR HEMOGLOBIN 26.3 pg (25-34); MEAN CORPUSCULAR HGB CONC 27.1 g/dl (32-36); MEAN PLATELET VOLUME 8.5 fL (7.4-10.4); PLATELET COUNT 158 K/uL (130-400); RED BLOOD COUNT 3.72 M/uL (4.2-5.4); WHITE BLOOD COUNT 5.68 K/uL (4.8-10.8)
[2016-10-29] MEDS: CARVEDILOL 12.5 MG TAB PO SCH ×2 (07:45→20:48)
[2016-10-29] MEDS: MAGNESIUM OXIDE 400 MG TAB PO SCH (07:46)
[2016-10-29] MEDS: ASPIRIN 81 MG ECTAB PO SCH (07:46)
[2016-10-29] MEDS: AMIODARONE 200 MG TAB PO SCH (07:46)
[2016-10-29] MEDS: GABAPENTIN 100 MG CAP PO SCH ×3 (07:46→20:57)
[2016-10-29] MEDS: CHOLECALCIFEROL 1000 INTER.UNIT TAB PO SCH (07:47)
[2016-10-29] MEDS: FERROUS SULFATE 325 MG TAB PO SCH ×2 (07:47→17:41)
[2016-10-29] MEDS: DOCUSATE SODIUM/SENNA 50/8.6MG TAB PO SCH ×2 (07:47→20:58)
[2016-10-29] MEDS: APIXABAN 2.5 MG TAB PO SCH ×2 (07:47→20:57)
[2016-10-29] MEDS: ISOSORBIDE MONONITRATE 30 MG TABCR PO SCH (07:47)
[2016-10-29] MEDS: POLYETHYLENE (MIRALAX) 17 GM PACK PO SCH (07:48)
[2016-10-29] MEDS: NYSTATIN OINT 15 GM TUBE EXT SCH ×2 (07:48→20:57)
[2016-10-29 08:08] LABS: BUN/CREATININE RATIO 34.5 (10-20); CREATININE 1.5 mg/dl (0.60-1.20); MAGNESIUM 2.7 mg/dl (1.8-2.4); PHOSPHORUS 2.7 mg/dl (2.5-4.9); POTASSIUM 4.1 mmol/L (3.5-5.1)
[2016-10-29] MEDS: INSULIN ASPART 100 UNITS/ML 3 ML PEN SC SCH ×4 (08:23→21:00)
[2016-10-29 09:40] LABS: CALCIUM 9.2 mg/dl (8.5-10.1)
[2016-10-29] MEDS: FUROSEMIDE 80 MG TAB PO SCH (09:48)
--- NOTE | 2016-10-29 11:27 | CARDIOLOGY PROGRESS NOTE ---
DATE: 10/29/2016 DATE: 10/29/2016. SUBJECTIVE: Mrs. Gudino is resting comfortably in bed without complaints of chest pain or dyspnea. She is anxious for hospital discharge. OBJECTIVE: VITAL SIGNS: Blood pressure is 115/67 with a regular pulse of 60. Respiratory rate is 20. The patient is afebrile at 36.4 degrees Celsius. Saturation 93% on 2 liters nasal cannula. NECK: Supple with full carotid upstrokes. No carotid bruits. Jugular venous pressure is flat at 90 degrees. There is no thyromegaly. CARDIOVASCULAR EXAMINATION: Reveals a regular rhythm with distant heart sounds. No obvious murmurs or S3. LUNGS: Clear without rales, rhonchi, or wheezes. CHEST: Reveals a palpable device in the left subclavicular region. ABDOMEN: Obese without bruits. EXTREMITIES: Reveal intact radial artery pulses bilaterally. 1-2+ pretibial edema is noted. Chronic venous stasis changes noted. LABORATORY DATA: CBC notes a hemoglobin of 9.8, hematocrit 36.1, white count 5.6, platelet count 115,000. Electrolytes note a sodium of 141, potassium 4.1, chloride 95, bicarbonate 45, BUN 52, creatinine 1.5, glucose 108. IMPRESSION AND PLAN: 1. Acute on chronic systolic congestive heart failure -- the patient seems compensated at this time. Appreciate Dr. Cordero's consultation and consideration of upgrading her device to biventricular ICD sinus pacemaker. That will likely be done as an outpatient next week. 2. Coronary artery disease -- as before. 3. Ischemic cardiomyopathy -- ejection fraction 20-25%. 4. Medtronic VVI implantable cardioverter defibrillator -- February 2015. 5. Paroxysmal atrial fibrillation/flutter. 6. Left bundle branch block. 7. Severe peripheral vascular disease. 8. Hypertension. 9. Hypercholesterolemia. 10. Diabetes mellitus. 11. Chronic renal failure.
[2016-10-29 13:17] LABS: BUN/CREATININE RATIO 30.4 (10-20); CALCIUM 9.3 mg/dl (8.5-10.1); CREATININE 1.7 mg/dl (0.60-1.20); POTASSIUM 4.3 mmol/L (3.5-5.1)
--- NOTE | 2016-10-29 15:28 | Progress Note ---
Internal Med Progress Note Date of Service: October 29, 2016. Provider Documentation: SUBJECTIVE: The patient was seen and examined Very drowsy this AM Denies any symptoms OBJECTIVE: Vital Signs-as noted below Exam: General-Obese No distress at rest but drowsy Eyes-normal ENT-normal Neck-supple Lungs-Decreased breath sound bilaterally No crackles were audible Heart-Regular Abdomen-Benign,no masses,bowel sound present Extremities-1+ Edema bilaterally,chronic in nature -IMPROVED Neuro-AAOx3 Lab data as noted below. ASSESSMENT & PLAN: ACUTE ON CHRONIC HYPOXEMIC RESPIRATORY FAILURE -Patient presented with worsening SOB; recent admission for same issue-started 2L continuous O2 and Lasix 80mg daily -Complicated by Acute on Chronic Systolic CHF in setting of NICOLAS and obesity hypoventilation syndrome -Last Echo: LVEF: 20-25% -CXR: worsening pulmonary edema -Received IV Lasix on Admission and now on Oral maintenance dose -Cont carvedilol and digoxin,Low salt diet/Fluid restriction - cardiology consulted-appreciate Input-may need to check ICD for possible change -Diuresed a lot and clinically shows improvement -increase mobility -PT/OT -discussed with the SON -Discussed with the [employer] -appreciate EP input for possible ICD change as an OP -Increased CO2 this morning with more drowsiness -Repeat check did not show much improvement -Likely discharge tomorrow CAD -s/p stents placed in 2013 -s/p Medtronic VVI implantable cardioverter defibrillator -- 02/2015 -Trop negative and EKG: no acute changes on admission -cont ASA, BB and statin - No symptoms reported PAROXYSMAL AFIB EKG showed LBBB with Afib -digoxin levels 0.6 -cont carvedilol, digoxin, amiodarone, apixaban -rate controlled and asymptomatic CKD STAGE IV -creatinine 1.7 (bl=1.7-1.9) -continue to monitor closely while on IV Lasix -renal function may get worse with IV Lasix -avoid nephrotoxic agents when able -Renal function is slightly worse again today DM 2 -recent A1C 7.7 -hold Prandin -start ISS -monitor BSG AC HS CHRONIC VENOUS STASIS ULCERS Daily wound care DYSLIPIDEMIA -cont statin DVT PROPHYLAXIS -cont Eliquis CODE STATUS DNR/DNI. Living will on chart. Consultants: Cardiology DISPOSITION Likely discharge tomorrow Vital Signs: Date Time Temp Pulse Resp B/P Pulse Ox O2 Delivery O2 Flow Rate FiO2 10/29/16 14:59 36.4 54 18 101/59 93 2.0 10/29/16 14:20 54 14 93 Nasal Cannula 2.0 10/29/16 12:10 94 Nasal Cannula 2.0 10/29/16 12:00 Nasal Cannula 2.0 10/29/16 11:40 36.3 54 18 96/60 90 2.0 10/29/16 08:00 Nasal Cannula 2.0 10/29/16 07:13 36.4 60 20 115/67 93 Nasal Cannula 2.0 10/29/16 07:06 57 14 92 Nasal Cannula 2.0 10/29/16 04:00 Nasal Cannula 4.0 10/29/16 03:58 36.4 58 18 114/72 95 Nasal Cannula 2.0 10/29/16 02:07 51 14 99 Nasal Cannula 4.0 10/29/16 00:00 Nasal Cannula 4.0 10/28/16 23:15 36.5 83 18 101/58 98 Nasal Cannula 4.0 10/28/16 20:00 97 Nasal Cannula 4.0 10/28/16 19:37 66 20 96 Nasal Cannula 4.0 10/28/16 19:25 36.4 51 18 100/55 99 Nasal Cannula 4.0 10/28/16 16:00 97 Nasal Cannula 4.0 10/28/16 16:00 52 10/28/16 15:28 36.6 53 18 147/68 97 Room Air Lab Results: Results Past 24 Hours Test 10/28/16 16:34 10/28/16 20:11 10/29/16 06:58 10/29/16 07:33 Range/Units Bedside Glucose 200 316 108 70-90 mg/dl White Blood Count 5.68 4.8-10.8 K/uL Red Blood Count 3.72 4.2-5.4 M/uL Hemoglobin 9.8 12.0-16.0 g/dL Hematocrit 36.1 37-47 % Mean Corpuscular Volume 97.0 80-100 fL Mean Corpuscular Hemoglobin 26.3 25-34 pg Mean Corpuscular Hemoglobin Concent 27.1 32-36 g/dl RDW Standard Deviation 66.8 36.4-46.3 fL RDW Coefficient of Variation 18.7 11.5-14.5 % Platelet Count 158 130-400 K/uL Mean Platelet Volume 8.5 7.4-10.4 fL Sodium Level 141 136-145 mmol/L Potassium Level 4.1 3.5-5.1 mmol/L Chloride Level 95 98-107 mmol/L Carbon Dioxide Level 45 21-32 mmol/L Anion Gap 4.0 3-11 mmol/L Blood Urea Nitrogen 52 7-18 mg/dl Creatinine 1.50 0.60-1.20 mg/dl Est Creatinine Clear Calc Drug Dose 45.5 ml/min Estimated GFR () 39.9 Estimated GFR (Non- 34.4 BUN/Creatinine Ratio 34.5 10-20 Random Glucose 85 70-99 mg/dl Calcium Level 9.2 8.5-10.1 mg/dl Phosphorus Level 2.7 2.5-4.9 mg/dl Magnesium Level 2.7 1.8-2.4 mg/dl Total Bilirubin 0.5 0.2-1 mg/dl Direct Bilirubin 0.1 0-0.2 mg/dl Aspartate Amino Transf (AST/SGOT) 14 15-37 U/L Alanine Aminotransferase (ALT/SGPT) 15 12-78 U/L Alkaline Phosphatase 49 45-117 U/L Total Protein 7.3 6.4-8.2 gm/dl Albumin 3.0 3.4-5.0 gm/dl Test 10/29/16 11:16 10/29/16 12:46 Range/Units Bedside Glucose 187 70-90 mg/dl Sodium Level 140 136-145 mmol/L Potassium Level 4.3 3.5-5.1 mmol/L Chloride Level 94 98-107 mmol/L Carbon Dioxide Level 44 21-32 mmol/L Anion Gap 2.0 3-11 mmol/L Blood Urea Nitrogen 52 7-18 mg/dl Creatinine 1.70 0.60-1.20 mg/dl Est Creatinine Clear Calc Drug Dose 40.2 ml/min Estimated GFR () 34.3 Estimated GFR (Non- 29.6 BUN/Creatinine Ratio 30.4 10-20 Random Glucose 186 70-99 mg/dl Calcium Level 9.3 8.5-10.1 mg/dl
[2016-10-29] MEDS: SIMVASTATIN 20 MG TAB PO SCH (20:58)
[2016-10-29] MEDS: INSULIN GLARGINE SOLOSTAR 100 UNITS/ML 3 ML PEN SC SCH (21:00)
[2016-10-29] MEDS: MICONAZOLE NITRATE POWDER 43 GM EXT PRN (21:01)
[2016-10-30] VITALS (11 sets, daily range): BP systolic 93–110; BP diastolic 55–76; PULSE 54–100; TEMP 36.3–36.7; O2SAT 94–99
[2016-10-30] MEDS: LEVALBUTEROL 1.25MG/0.5ML NEB INH SCH ×4 (01:52→19:47)
[2016-10-30] MEDS: IPRATROPIUM BROMIDE NEB SOLN 0.02% 2.5 ML VIAL INH SCH ×4 (01:52→19:47)
[2016-10-30] MEDS: ACETAMINOPHEN 325 MG TAB PO PRN (02:56)
[2016-10-30 06:36] LABS: BUN/CREATININE RATIO 31.8 (10-20); CALCIUM 9.2 mg/dl (8.5-10.1); CREATININE 1.5 mg/dl (0.60-1.20)
[2016-10-30] MEDS: DOCUSATE SODIUM/SENNA 50/8.6MG TAB PO SCH ×2 (08:02→20:30)
[2016-10-30] MEDS: GABAPENTIN 100 MG CAP PO SCH ×3 (08:02→20:31)
[2016-10-30] MEDS: FUROSEMIDE 80 MG TAB PO SCH (08:02)
[2016-10-30] MEDS: CARVEDILOL 12.5 MG TAB PO SCH ×2 (08:03→20:37)
[2016-10-30] MEDS: MAGNESIUM OXIDE 400 MG TAB PO SCH (08:03)
[2016-10-30] MEDS: CHOLECALCIFEROL 1000 INTER.UNIT TAB PO SCH (08:03)
[2016-10-30] MEDS: ASPIRIN 81 MG ECTAB PO SCH (08:03)
[2016-10-30] MEDS: APIXABAN 2.5 MG TAB PO SCH ×2 (08:03→20:31)
[2016-10-30] MEDS: FERROUS SULFATE 325 MG TAB PO SCH ×2 (08:04→17:16)
[2016-10-30] MEDS: ISOSORBIDE MONONITRATE 30 MG TABCR PO SCH (08:04)
[2016-10-30] MEDS: AMIODARONE 200 MG TAB PO SCH (08:04)
[2016-10-30] MEDS: POLYETHYLENE (MIRALAX) 17 GM PACK PO SCH (08:04)
[2016-10-30] MEDS: INSULIN ASPART 100 UNITS/ML 3 ML PEN SC SCH ×4 (08:06→20:36)
[2016-10-30] MEDS: NYSTATIN OINT 15 GM TUBE EXT SCH ×2 (08:06→20:36)
[2016-10-30 10:08] LABS: ARTERIAL BLD GAS O2 SATURATION 93.9 % (90-95); ARTERIAL BLOOD GAS BASE EXCESS 17.4 mEq/L (-9-1.8); ARTERIAL BLOOD GAS HCO3 45 mmol/L (19-24); ARTERIAL BLOOD GAS PO2 80 mm/Hg (80-95); ARTERIAL BLOOD GAS pH 7.43 (7.35-7.45)
[2016-10-30 10:10] LABS: ALLEN TEST POS (POS); O2 ADMINISTRATION 3 L
--- NOTE | 2016-10-30 12:23 | Progress Note ---
Internal Med Progress Note Date of Service: October 30, 2016. Provider Documentation: SUBJECTIVE: The patient was seen and examined OOB in a chair Denies any symptoms Says ready to be discharged OBJECTIVE: Vital Signs-as noted below Exam: General-Obese No distress at rest Eyes-normal ENT-normal Neck-supple Lungs-Decreased breath sound bilaterally No crackles Heart-Regular Abdomen-Benign,no masses,bowel sound present Extremities-1+ Edema bilaterally,chronic in nature -IMPROVED Neuro-AAOx3 Generally weak Lab data as noted below. ASSESSMENT & PLAN: ACUTE ON CHRONIC HYPOXEMIC RESPIRATORY FAILURE -Patient presented with worsening SOB; recent admission for same issue-started 2L continuous O2 and Lasix 80mg daily -Complicated by Acute on Chronic Systolic CHF in setting of NICOLAS and obesity hypoventilation syndrome -Last Echo: LVEF: 20-25% -CXR: worsening pulmonary edema -Received IV Lasix on Admission and now on Oral maintenance dose -Cont carvedilol and digoxin,Low salt diet/Fluid restriction - cardiology consulted-appreciate Input-may need to check ICD for possible change -Diuresed a lot and clinically shows improvement -appreciate EP input for possible ICD change as an OP -Increased CO2 this morning with more drowsiness -CO2 has been high chronically -clinically much better today -ABG noted -CO2 69 and PO2 80 -check CO2 in blood -if reducing will discharge CAD -s/p stents placed in 2013 -s/p Medtronic VVI implantable cardioverter defibrillator -- 02/2015 -Trop negative and EKG: no acute changes on admission -cont ASA, BB and statin - No symptoms reported PAROXYSMAL AFIB EKG showed LBBB with Afib -digoxin levels 0.6 -cont carvedilol, digoxin, amiodarone, apixaban -rate controlled and asymptomatic CKD STAGE IV -creatinine 1.7 (bl=1.7-1.9) -continue to monitor closely while on IV Lasix -renal function may get worse with IV Lasix -avoid nephrotoxic agents when able -Renal function is slightly worse again today DM 2 -recent A1C 7.7 -hold Prandin -start ISS -monitor BSG AC HS CHRONIC VENOUS STASIS ULCERS Daily wound care DYSLIPIDEMIA -cont statin DVT PROPHYLAXIS -cont Eliquis CODE STATUS DNR/DNI. Living will on chart. Consultants: Cardiology DISPOSITION Likely discharge today Vital Signs: Date Time Temp Pulse Resp B/P Pulse Ox O2 Delivery O2 Flow Rate FiO2 10/30/16 11:42 36.4 100 18 109/76 95 Nasal Cannula 2.0 10/30/16 08:00 Nasal Cannula 2.0 10/30/16 07:40 36.4 95 16 110/68 97 2.0 10/30/16 07:25 73 16 96 Nasal Cannula 2.0 10/30/16 04:51 36.7 54 18 100/55 94 Nasal Cannula 2.0 10/30/16 04:47 Nasal Cannula 2.0 10/30/16 01:52 54 16 97 Nasal Cannula 2.0 10/30/16 00:00 Nasal Cannula 2.0 10/29/16 22:43 36.7 64 18 104/54 100 Nasal Cannula 2.0 10/29/16 20:00 93 Nasal Cannula 2.0 10/29/16 19:17 36.7 64 18 104/54 100 Nasal Cannula 2.0 10/29/16 18:59 53 16 97 Nasal Cannula 2.0 10/29/16 16:00 93 Nasal Cannula 2.0 10/29/16 14:59 36.4 54 18 101/59 93 2.0 10/29/16 14:20 54 14 93 Nasal Cannula 2.0 Lab Results: Results Past 24 Hours Test 10/29/16 12:46 10/29/16 16:37 10/29/16 19:54 10/30/16 05:15 Range/Units Sodium Level 140 143 136-145 mmol/L Potassium Level 4.3 4.0 3.5-5.1 mmol/L Chloride Level 94 96 98-107 mmol/L Carbon Dioxide Level 44 47 21-32 mmol/L Anion Gap 2.0 0.0 3-11 mmol/L Blood Urea Nitrogen 52 48 7-18 mg/dl Creatinine 1.70 1.50 0.60-1.20 mg/dl Est Creatinine Clear Calc Drug Dose 40.2 45.1 ml/min Estimated GFR () 34.3 39.9 Estimated GFR (Non- 29.6 34.4 BUN/Creatinine Ratio 30.4 31.8 10-20 Random Glucose 186 99 70-99 mg/dl Calcium Level 9.3 9.2 8.5-10.1 mg/dl Bedside Glucose 171 218 70-90 mg/dl Test 10/30/16 07:23 10/30/16 10:00 10/30/16 11:26 Range/Units Bedside Glucose 100 180 70-90 mg/dl Arterial Blood pH 7.43 7.35-7.45 Arterial Blood Partial Pressure CO2 69 35-46 mmHg Arterial Blood Partial Pressure O2 80 80-95 mm/Hg Arterial Blood HCO3 45 19-24 mmol/L Arterial Blood Oxygen Saturation 93.9 90-95 % Arterial Blood Base Excess 17.4 -9-1.8 mEq/L Arterial Blood Gas Delivery 3 L Wing Test POS POS
[2016-10-30 13:48] LABS: BUN/CREATININE RATIO 29.7 (10-20); CALCIUM 9.1 mg/dl (8.5-10.1); CREATININE 1.5 mg/dl (0.60-1.20); POTASSIUM 3.9 mmol/L (3.5-5.1)
[2016-10-30] MEDS: DIGOXIN 0.125 MG TAB PO SCH (15:31)
[2016-10-30] MEDS: SIMVASTATIN 20 MG TAB PO SCH (20:30)
[2016-10-30] MEDS: INSULIN GLARGINE SOLOSTAR 100 UNITS/ML 3 ML PEN SC SCH (20:35)
[2016-10-31] MEDS: IPRATROPIUM BROMIDE NEB SOLN 0.02% 2.5 ML VIAL INH SCH ×2 (02:12→07:27)
[2016-10-31] MEDS: LEVALBUTEROL 1.25MG/0.5ML NEB INH SCH ×2 (02:12→07:27)
[2016-10-31 02:13] VITALS: PULSE 60; O2SAT 97
[2016-10-31 04:27] VITALS: BP 107/52; PULSE 106; TEMP 36.5; O2SAT 91
[2016-10-31 07:11] VITALS: BP 92/56; PULSE 91; TEMP 36.8; O2SAT 99
[2016-10-31 07:28] VITALS: PULSE 91; O2SAT 99
[2016-10-31 07:34] LABS: CALCIUM 9.3 mg/dl (8.5-10.1); CREATININE 1.5 mg/dl (0.60-1.20); POTASSIUM 3.8 mmol/L (3.5-5.1)
[2016-10-31] MEDS: INSULIN ASPART 100 UNITS/ML 3 ML PEN SC SCH ×2 (08:51→12:09)
[2016-10-31] MEDS: FUROSEMIDE 80 MG TAB PO SCH (08:55)
[2016-10-31] MEDS: MAGNESIUM OXIDE 400 MG TAB PO SCH (08:55)
[2016-10-31] MEDS: ASPIRIN 81 MG ECTAB PO SCH (08:55)
[2016-10-31] MEDS: GABAPENTIN 100 MG CAP PO SCH (08:55)
[2016-10-31] MEDS: AMIODARONE 200 MG TAB PO SCH (08:55)
[2016-10-31] MEDS: ISOSORBIDE MONONITRATE 30 MG TABCR PO SCH (08:55)
[2016-10-31] MEDS: CHOLECALCIFEROL 1000 INTER.UNIT TAB PO SCH (08:56)
[2016-10-31] MEDS: DOCUSATE SODIUM/SENNA 50/8.6MG TAB PO SCH (08:56)
[2016-10-31] MEDS: APIXABAN 2.5 MG TAB PO SCH (08:56)
[2016-10-31] MEDS: CARVEDILOL 12.5 MG TAB PO SCH (08:56)
[2016-10-31] MEDS: FERROUS SULFATE 325 MG TAB PO SCH (08:56)
[2016-10-31] MEDS: POLYETHYLENE (MIRALAX) 17 GM PACK PO SCH (08:56)
[2016-10-31] MEDS: NYSTATIN OINT 15 GM TUBE EXT SCH (08:56)
[2016-10-31 10:08] VITALS: BP 92/56; PULSE 91; TEMP 36.8; O2SAT 99
--- NOTE | 2016-10-31 11:07 | Progress Note ---
Internal Med Progress Note Date of Service: October 31, 2016. Provider Documentation: SUBJECTIVE: The patient was seen and examined OOB in a chair Denies any symptoms Wants to be discharged today Upset that she is not been discharged Does not want to try BIPAP OBJECTIVE: Vital Signs-as noted below Exam: General-Obese without any apparent distress Talking normally and wants to be out Eyes-normal ENT-normal Neck-supple Lungs-Decreased breath sound bilaterally No crackles and or wheezing Heart-Regular Abdomen-Benign,no masses,bowel sound present Extremities-1+ Edema bilaterally,chronic in nature -IMPROVED Neuro-AAOx3 Generally weak Lab data as noted below. ASSESSMENT & PLAN: ACUTE ON CHRONIC HYPOXEMIC RESPIRATORY FAILURE -Patient presented with worsening SOB; recent admission for same issue-started 2L continuous O2 and Lasix 80mg daily -Complicated by Acute on Chronic Systolic CHF in setting of NICOLAS and obesity hypoventilation syndrome -Last Echo: LVEF: 20-25% -CXR: worsening pulmonary edema -Received IV Lasix on Admission and now on Oral maintenance dose -Cont carvedilol and digoxin,Low salt diet/Fluid restriction - cardiology consulted-appreciate Input-may need to check ICD for possible change -Diuresed a lot and clinically shows improvement -appreciate EP input for possible ICD change as an OP -Increased CO2 this morning with more drowsiness -CO2 has been high chronically -clinically much better today -ABG noted -CO2 69 and PO2 80 -CO2 This morning 47-Not increasing and the patient is clinically improved Will discharge today CAD -s/p stents placed in 2013 -s/p Medtronic VVI implantable cardioverter defibrillator -- 02/2015 -Trop negative and EKG: no acute changes on admission -cont ASA, BB and statin - No symptoms reported PAROXYSMAL AFIB EKG showed LBBB with Afib -digoxin levels 0.6 -cont carvedilol, digoxin, amiodarone, apixaban -rate controlled and asymptomatic CKD STAGE IV -creatinine 1.7 (bl=1.7-1.9) -continue to monitor closely while on IV Lasix -renal function may get worse with IV Lasix -avoid nephrotoxic agents when able -Renal function is slightly worse again today -Remains stable at 1.5 DM 2 -recent A1C 7.7 -hold Prandin -start ISS -monitor BSG AC HS CHRONIC VENOUS STASIS ULCERS Daily wound care DYSLIPIDEMIA -cont statin DVT PROPHYLAXIS -cont Eliquis CODE STATUS DNR/DNI. Living will on chart. Consultants: Cardiology DISPOSITION Discussed with the Son and the patient in detailed in presence of the caring nurse Will discharge her today Follow up with dr Jean and Early Morning Vital Signs: Date Time Temp Pulse Resp B/P Pulse Ox O2 Delivery O2 Flow Rate FiO2 10/31/16 10:08 36.8 91 16 99 Nasal Cannula 10/31/16 08:45 Nasal Cannula 2.0 10/31/16 07:28 91 16 99 Nasal Cannula 2.0 10/31/16 07:11 36.8 91 16 92/56 99 2.0 10/31/16 04:27 36.5 106 18 107/52 91 BiPAP 2.0 10/31/16 04:00 BiPAP 10/31/16 02:13 60 16 97 BiPAP/CPAP 2.0 10/31/16 00:18 BiPAP 10/30/16 23:40 36.3 56 18 110/68 96 2.0 56 10/30/16 22:17 63 96 2.0 10/30/16 20:48 Nasal Cannula 2.0 10/30/16 19:47 68 16 98 Nasal Cannula 2.0 10/30/16 19:46 36.3 73 20 93/59 98 Nasal Cannula 2.0 10/30/16 16:06 Nasal Cannula 2.0 10/30/16 15:31 57 10/30/16 15:23 36.4 62 20 106/60 96 Nasal Cannula 2.0 10/30/16 14:07 63 16 99 Nasal Cannula 2.0 10/30/16 12:30 Nasal Cannula 2.0 10/30/16 11:42 36.4 100 18 109/76 95 Nasal Cannula 2.0 Lab Results: Results Past 24 Hours Test 10/30/16 11:26 10/30/16 13:05 10/30/16 16:49 10/30/16 20:11 Range/Units Bedside Glucose 180 146 199 70-90 mg/dl Sodium Level 141 136-145 mmol/L Potassium Level 3.9 3.5-5.1 mmol/L Chloride Level 95 98-107 mmol/L Carbon Dioxide Level 46 21-32 mmol/L Anion Gap 0.0 3-11 mmol/L Blood Urea Nitrogen 45 7-18 mg/dl Creatinine 1.50 0.60-1.20 mg/dl Est Creatinine Clear Calc Drug Dose 45.1 ml/min Estimated GFR () 39.9 Estimated GFR (Non- 34.4 BUN/Creatinine Ratio 29.7 10-20 Random Glucose 174 70-99 mg/dl Calcium Level 9.1 8.5-10.1 mg/dl Test 10/31/16 06:57 10/31/16 07:18 Range/Units Sodium Level 142 136-145 mmol/L Potassium Level 3.8 3.5-5.1 mmol/L Chloride Level 95 98-107 mmol/L Carbon Dioxide Level 47 21-32 mmol/L Anion Gap 0.0 3-11 mmol/L Blood Urea Nitrogen 36 7-18 mg/dl Creatinine 1.50 0.60-1.20 mg/dl Est Creatinine Clear Calc Drug Dose 44.8 ml/min Estimated GFR () 39.9 Estimated GFR (Non- 34.4 BUN/Creatinine Ratio 24.0 10-20 Random Glucose 109 70-99 mg/dl Calcium Level 9.3 8.5-10.1 mg/dl Bedside Glucose 116 70-90 mg/dl
[2016-10-31 11:30] VITALS: BP 103/57; PULSE 58; TEMP 36.5; O2SAT 98
--- NOTE | 2016-10-31 11:33 | Discharge Instructions ---
Discharge Instructions Date of Service October 31, 2016. Admission Reason for Admission: Respiratory Distress Discharge Discharge Diagnosis / Problem: ACUTE ON CHRONIC HYPOXEMIC RESPIRATORY FAILURE Discharge Goals Goal(s): Prevent Disease Progression Activity Recommendations Activity Limitations: resume your previous activity . Instructions / Follow-Up Instructions / Follow-Up Dr Jean on 11/05/16 at 10:45 AM.Please keep appointment with the tool or die drawing checker Current Hospital Diet Patient's current hospital diet: Low Sodium Diet (2gm Na), Diabetes Type 2 Diet , AHA Diet (Heart Healthy) Discharge Diet Recommended Diet: Low Sodium Diet (2gm Na), Diabetes Type 2 Diet Fluid Restriction: 1500 ml (6 cups) Pending Studies Studies pending at discharge: no Laboratory Results Hemoglobin A1c Test 09/22/16 06:10 Range/Units Estimated Average Glucose 174 mg/dl Hemoglobin A1c 7.7 H 4.5-5.6 % Medical Emergencies . Who to Call and When: Medical Emergencies: If at any time you feel your situation is an emergency, please call 911 immediately. . Non-Emergent Contact Non-Emergency issues call your: Primary Care Provider (Janis) . Past History Medical & Surgical History: (1) CHF (congestive heart failure) (2) DM type 2 (diabetes mellitus, type 2) (3) Atrial fibrillation (4) CKD (chronic kidney disease), stage III (5) Systolic CHF, chronic (6) Respiratory failure (7) History of total bilateral knee replacement (8) S/P cholecystectomy (9) Status post placement of cardiac pacemaker . "Provider Documentation" section prepared by Rachael Munoz. . VTE Core Measure Inpt VTE Proph given/why not?: Other Anticoagulation (apixaban)
--- NOTE | 2016-10-31 14:48 | Discharge Summary ---
Discharge Summary Date of Service October 31, 2016. Discharge Summary Admission Date: Oct 22, 2016 at 12:55 Discharge Date: October 31, 2016 Discharge Disposition: Personal care Principal Diagnosis: ACUTE ON CHRONIC HYPOXEMIC RESPIRATORY FAILURE Secondary Diagnoses/Problems: Please see H&P and Hospital Progress note Consultations: Cardio Medication Reconciliation Continued Medications: Acetaminophen (Tylenol) 325 Mg Tab 650 MG PO Q4 PRN for Pain or Fever, TAB do not exceed 3000mg/24 hours Amiodarone Hcl (Cordarone) 200 Mg Tab 200 MG PO DAILY, TAB Apixaban (Eliquis) 5 Mg Tab 5 MG PO BID, TAB Aspirin (Aspirin Chewable) 81 Mg Chew 81 MG PO QAM Bisacodyl (Bisacodyl) 10 Mg Sup 10 MG RE DAILY PRN for Constipation USE IF NO BM IN 4 DAYS. Carvedilol (Coreg) 12.5 Mg Tab 12.5 MG PO BID, TAB Cholecalciferol (Vitamin D) 2,000 Unit Cap 2000 INTUNIT PO QAM Digoxin (Digoxin) 0.125 Mg Tab 125 MCG PO Q2D Ferrous Sulfate (Kp Ferrous Sulfate) 325 Mg Tab 1 TAB PO BIDM for 30 Days, TAB 3 Refills Furosemide (Lasix) 40 Mg Tab 80 MG PO DAILY, TAB Gabapentin (Neurontin) 100 Mg Cap 100 MG PO TID, CAP Isosorbide Dinitrate (Isordil) 30 Mg Tab 30 MG PO DAILY, TAB Magnesium Hydroxide (Milk Of Magnesia) 30 Ml Susp 30 ML PO DIRECTED PRN for constipation, ML if no bm in 3 days Magnesium Oxide (Mag-Ox) 400 Mg Tab 100 MG PO DAILY, TAB Melatonin (Kp Melatonin) 3 Mg Tab 1 TAB PO HS for 30 Days, #30 TAB Miconazole Nitrate (Topical) (Zeasorb-Af) 2 % Pow 1 APPLN TOP DAILY PRN for FUNGAL APPLY POWDER TO THE AFFECTED AREAS ON SKIN FOLD NEEDED TO TREAT A FUNGAL INFECTION Nystatin (Topical) (Nystatin) 100,000 Unit/Gm Oin 1 APPLN TOP BID for 5 Days, #15 GM APPLY TO AFFECTED AREA TWICE DAILY TOPICALLY FOR VAGINAL YEAST. USE FOR 2 WEEKS Polyethylene Glycol 3350 (Miralax) 1 Pow Pow 17 GM PO DAILY, #527 GM Repaglinide (Prandin) 0.5 Mg Tab 0.5 MG PO AC, TAB TAKE 1MG 3 TIMES A DAY 15 MINUTES BEFORE EACH MEAL FOR BLOOD SUGAR Senna/Docusate Sod (Senokot S) 1 Tab Tab 1 TAB PO BID, TAB Simvastatin (Zocor) 20 Mg Tab 20 MG PO QPM, TAB [Compression Device] () 30 MINUTES BID Admission Information HPI (per Admitting provider): This is a 70 y/o female with PMHx of ischemic heart disease, systolic heart failure, PAF on Eliquis, DM 2, and other problems outlined below who presents [facility] the ED from [facility] with worsening SOB that began this morning. Pt was recently admitted 09/21-10/01 with acute on chronic respiratory failure secondary to acute CHF exacerbation. Pt was tx with IV Lasix in hospital and discharged back to [facility] on 2L continuos O2 (new for patient). History is primarily obtained from director at [place] [facility], [place] as patient unable to give history due to acute illness. He reports that patient has had worsening SOB since 0430 this morning. Pt has had no fevers or cough. She denies chest pain or worsening LE edema. Pt has chronic venous stasis ulcers. She recently completed course of Doxy and follows with wound clinic. In the ED, pt is hypoxic , tachycardic and tachypneic on arrival. She is now saturating well on BIPAP. ABG pH 7.27, pCO2 70, pO2 98, bicarb 31. Pt is afebrile with mild leukocytosis> 11K. K+ 5.1. creat 1.5. CXR worsening pulmonary edema. Trop neg and EKG unchanged. Pt will be admitted for further evaluation and treatment. Past Medical/Surgical History Medical Problems: (1) Atrial fibrillation Status: Chronic (2) CKD (chronic kidney disease), stage III Status: Chronic (3) Coronary artery disease Status: Chronic (4) DM type 2 (diabetes mellitus, type 2) Status: Chronic (5) History of osteomyelitis Permanent Comment: R third toe Status: Chronic (6) History of uterine cancer Permanent Comment: s/p XRT Status: Chronic (7) HTN (hypertension) Status: Chronic (8) Pacemaker Status: Chronic (9) Systolic CHF, chronic Permanent Comment: LVEF 20-25% Status: Chronic Surgical Problems: (1) History of total bilateral knee replacement Status: Chronic (2) S/P cholecystectomy Status: Chronic (3) Status post placement of cardiac pacemaker Status: Chronic Family History Cancer MOTHER Heart disease MOTHER Social History Smoking Status: Unknown if Ever Smoked Drug Use: none Marital Status: Housing status: other ([facility]) Occupational Status: retired Immunizations History of Influenza Vaccine: Yes History of Tetanus Vaccine?: No History of Pneumococcal: Yes History of Hepatitis B Vaccine: No Allergies Coded Allergies: No Known Allergies (Unverified , 09/21/16) Home Medications Scheduled Amiodarone Hcl (Cordarone), 200 MG PO DAILY Apixaban (Eliquis), 5 MG PO BID Aspirin (Aspirin Chewable), 81 MG PO QAM Carvedilol (Coreg), 12.5 MG PO BID Cholecalciferol (Vitamin D), 2,000 INTUNIT PO QAM Digoxin (Digoxin), 125 MCG PO Q2D Ferrous Sulfate ( Ferrous Sulfate), 1 TAB PO BIDM Furosemide (Lasix), 80 MG PO DAILY Gabapentin (Neurontin), 100 MG PO TID Isosorbide Dinitrate (Isordil), 30 MG PO DAILY Magnesium Oxide (Mag-Ox), 100 MG PO DAILY Melatonin ( Melatonin), 1 TAB PO HS Nystatin (Topical) (Nystatin), 1 APPLN TOP BID Polyethylene Glycol 3350 (Miralax), 17 GM PO DAILY Repaglinide (Prandin), 0.5 MG PO AC Senna/Docusate Sod (Senokot S), 1 TAB PO BID Simvastatin (Zocor), 20 MG PO QPM [Compression Device], 30 MINUTES BID Scheduled PRN Acetaminophen (Tylenol), 650 MG PO Q4 PRN for Pain or Fever Bisacodyl (Bisacodyl), 10 MG RE DAILY PRN for Constipation Magnesium Hydroxide (Milk Of Magnesia), 30 ML PO DIRECTED PRN for constipation Miconazole Nitrate (Topical) (Zeasorb-Af), 1 APPLN TOP DAILY PRN for FUNGAL Review of Systems Unable to obtain complete ROS due to patients acute illness Constitutional: + fatigue, + weakness, No fever Eyes: No worsening of vision ENT: No hearing loss Respiratory: + dyspnea at rest, + shortness of breath, No cough, No wheezing Cardiovascular: + edema (chronic ), No chest pain Musculoskeletal: + swelling Neurologic: + weakness Endocrine: + fatigue Integumentary: + problem reported (chronic LLE wound) Physical Ex - H&P Physical Exam Vital Signs Date Time Temp Pulse Resp B/P Pulse Ox O2 Delivery O2 Flow Rate FiO2 10/22/16 13:15 132/77 10/22/16 13:09 100 10/22/16 13:09 100 24 99 10/22/16 12:59 126/75 10/22/16 12:45 123/76 10/22/16 12:39 101 27 99 10/22/16 12:30 133/79 10/22/16 12:15 132/74 10/22/16 12:09 102 98 10/22/16 11:59 141/79 10/22/16 11:39 100 34 99 10/22/16 11:34 101 32 98 10/22/16 11:04 99 26 98 10/22/16 10:48 95 98 100 10/22/16 10:42 95 95 100 10/22/16 10:34 95 28 94 10/22/16 10:04 106 97 10/22/16 10:03 96 Non-Rebreather 15.0 10/22/16 09:58 102 10/22/16 09:57 98 Non-Rebreather 50 10/22/16 09:51 36.4 102 34 163/98 95 Non-Rebreather 15.0 10/22/16 09:46 163/98 10/22/16 09:46 81 Room Air General Appearance: WD/WN, + mild distress, + obese, + pertinent finding (Pt is sitting up in bed with director of [facility] at bedside) Head: normocephalic, atraumatic Eyes: normal inspection ENT: hearing grossly normal Neck: supple Respiratory/Chest: chest non-tender, + pertinent finding (course breath sounds with decreased air movement) Cardiovascular: no murmur, + tachycardia Abdomen/GI: non tender, soft, + pertinent finding (decreased bowel sounds) Back: normal inspection Extremities/Musculoskelatal: + pertinent finding (chronic venous stasis skin changes with 3 small wounds noted to LLE. No erythema, edema or drainage noted) Neurologic/Psych: alert, normal mood/affect, oriented x 3 Skin: normal color, warm/dry Diagnostics - H&P Diagnostics Laboratory Results Results Past 24 Hours Test 10/22/16 09:50 10/22/16 12:53 Range/Units White Blood Count 11.36 4.8-10.8 K/uL Red Blood Count 4.60 4.2-5.4 M/uL Hemoglobin 12.4 12.0-16.0 g/dL Hematocrit 44.5 37-47 % Mean Corpuscular Volume 96.7 80-100 fL Mean Corpuscular Hemoglobin 27.0 25-34 pg Mean Corpuscular Hemoglobin Concent 27.9 32-36 g/dl Platelet Count 242 130-400 K/uL Mean Platelet Volume 8.6 7.4-10.4 fL Neutrophils (%) (Auto) 78.1 % Lymphocytes (%) (Auto) 10.7 % Monocytes (%) (Auto) 5.9 % Eosinophils (%) (Auto) 4.3 % Basophils (%) (Auto) 0.5 % Neutrophils # (Auto) 8.86 1.4-6.5 K/uL Lymphocytes # (Auto) 1.22 1.2-3.4 K/uL Monocytes # (Auto) 0.67 0.11-0.59 K/uL Eosinophils # (Auto) 0.49 0-0.5 K/uL Basophils # (Auto) 0.06 0-0.2 K/uL RDW Standard Deviation 66.4 36.4-46.3 fL RDW Coefficient of Variation 19.1 11.5-14.5 % Immature Granulocyte % (Auto) 0.5 % Immature Granulocyte # (Auto) 0.06 0.00-0.02 K/uL Nucleated RBC Absolute Count (auto) 0.04 0-0 K/uL Nucleated Red Blood Cells % 0.4 % Sodium Level 138 136-145 mmol/L Potassium Level 5.1 3.5-5.1 mmol/L Chloride Level 102 98-107 mmol/L Carbon Dioxide Level 33 21-32 mmol/L Anion Gap 3.0 3-11 mmol/L Blood Urea Nitrogen 29 7-18 mg/dl Creatinine 1.50 0.60-1.20 mg/dl Est Creatinine Clear Calc Drug Dose 46.9 ml/min Estimated GFR () 39.9 Estimated GFR (Non- 34.4 BUN/Creatinine Ratio 19.0 10-20 Random Glucose 259 70-99 mg/dl Calcium Level 9.3 8.5-10.1 mg/dl Total Bilirubin 0.6 0.2-1 mg/dl Aspartate Amino Transf (AST/SGOT) 10 15-37 U/L Alanine Aminotransferase (ALT/SGPT) 18 12-78 U/L Alkaline Phosphatase 65 45-117 U/L Total Creatine Kinase 52 26-192 U/L Creatine Kinase MB 1.5 0.5-3.6 ng/ml Creatine Kinase MB Ratio 2.9 0-3.0 Troponin I < 0.015 0-0.045 ng/ml Pro-B-Type Natriuretic Peptide 1845 0-900 pg/ml Total Protein 9.4 6.4-8.2 gm/dl Albumin 3.8 3.4-5.0 gm/dl Globulin 5.6 2.5-4.0 gm/dl Albumin/Globulin Ratio 0.7 0.9-2 Digoxin Level 0.6 0.8-2.0 ng/ml Arterial Blood pH 7.27 7.35-7.45 Arterial Blood Partial Pressure CO2 70 35-46 mmHg Arterial Blood Partial Pressure O2 98 80-95 mm/Hg Arterial Blood HCO3 31 19-24 mmol/L Arterial Blood Oxygen Saturation 96.0 90-95 % Arterial Blood Base Excess 2.2 -9-1.8 mEq/L Arterial Blood Gas Delivery 100% Wing Test POS POS Diagnostic Radiology CXR IMPRESSION: Bilateral pulmonary airspace opacities, most consistent with worsening pulmonary edema. EKG EKG: sinus rhythm at 97 bpm with LBBB; no change when compared to EKG from Impression - H&P Impression Assessment and Plan ACUTE ON CHRONIC HYPOXEMIC RESPIRATORY FAILURE pt presented with worsening SOB; recent admission for same issue-started 2L continuous O2 and Lasix 80mg daily -admit to telemetry -multifactorial: Acute on Chronic Systolic CHF in setting of NICOLAS and obesity hypoventilation syndrome -ABG pH 7.27, pCO2 70, pO2 98, bicarb 31 consistent with respiratory acidosis and compensatory metabolic alkalosis -Last Echo: LVEF: 20-25% -CXR: worsening pulmonary edema -start IV Lasix 80mg BID -cont carvedilol and digoxin -hold Imdur and start nitro paste -monitor daily weight, I/Os-will insert yun for close monitoring -Low salt diet/Fluid restriction -cont BIPAP; wean as tolerated -monitor CHRONIC VENOUS STASIS ULCERS -completed course of Doxy 10/07/16 -consult wound care nurse -pt follows with wound clinic CAD -s/p stents placed in 2013 -Trop negative and EKG: no acute changes -cont ASA, BB and statin -pt currently denies chest pain PAROXYSMAL AFIB EKG: sinus rhythm -digoxin levels 0.6 -cont carvedilol, digoxin, amiodarone, apixaban CKD STAGE IV -creatinine 1.5 (bl=1.7-1.9) -continue to monitor closely while on IV Lasix and avoid nephrotoxic agents when able DM 2 -recent A1C 7.7 -holding Prandin -start ISS -monitor BSG AC HS DYSLIPIDEMIA -cont statin DVT PROPHYLAXIS -cont Eliquis CODE STATUS -DNR/DNI. Living will on chart. DISPO -Pt seen in collaboration with Dr. Walker. Please see his addendum for further details. Thanks! -Of note: patient will be followed by Dr. Merrill starting tomorrow AM. VTE Prophylaxis VTE Risk Assessment Done? Y/N: Yes Risk Level: Moderate Given or contraindicated: Other Anticoagulation (apixaban) Note ATTENDING ADDENDUM Record reviewed. Patient interviewed and examined. Care coordinated with Anna Long PA-C. Please refer to her documentation for patient's history. Briefly, 70 YO female with history of ischemic heart disease, systolic heart failure, age fibrillation, diabetes, and other problems as noted. Acute onset of SOB this morning. No apparent chest pain, fever, cough. EXAM: General- acutely ill, tachypneic VS- as noted Head- atraumatic Eyes- PERRL, EOMI, anicteric ENT- wearing BiPAP; unable to assess oropharynx Neck- supple; + JVD; no thyromegaly; trachea midline Lungs- bibasilar rales, diffuse wheezing, using accessory muscles Heart- RRR, II/ sys murmur LSB, probable apical S3 Abdomen- obese, + BS, soft, nontender; no palpable masses or hepatosplenomegaly Extremities- 2-3+ pretibial edema; no calf tenderness; diminished pedal pulses ; capillary refill toes 2 sec Neuro- lethargic; PERRL, EOMI; unable to follow commands Skin- venous stasis ulcers left lower extremity DATA: Lab studies as noted. Chest x-ray reviewed- pulmonary edema. EKG reviewed- NSR 97 / min, LBBB. ASSESSMENT AND PLAN: Acute hypoxic + hypercapnic respiratory failure. Pulmonary edema. Acute on chronic left ventricular systolic heart failure. Continue BiPAP as necessary for ventilatory support. IV furosemide until CHF compensated. Please refer to AUTUMN Long's documentation for discussion of other issues. Chace Walker MD . Physical Exam (per Admitting): General Appearance: WD/WN, + mild distress, + obese, + pertinent finding ( Pt is sitting up in bed with director of [facility] at bedside) Head: normocephalic, atraumatic Eyes: normal inspection ENT: hearing grossly normal Neck: supple Respiratory/Chest: chest non-tender, + pertinent finding (course breath sounds with decreased air movement) Cardiovascular: no murmur, + tachycardia Abdomen/GI: non tender, soft, + pertinent finding (decreased bowel sounds) Back: normal inspection Extremities/Musculoskelatal: + pertinent finding (chronic venous stasis skin changes with 3 small wounds noted to LLE. No erythema, edema or drainage noted) Neurologic/Psych: alert, normal mood/affect, oriented x 3 Skin: normal color, warm/dry Hospital Course ACUTE ON CHRONIC HYPOXEMIC RESPIRATORY FAILURE -Patient presented with worsening SOB; recent admission for same issue-started 2L continuous O2 and Lasix 80mg daily -Complicated by Acute on Chronic Systolic CHF in setting of NICOLAS and obesity hypoventilation syndrome -Last Echo: LVEF: 20-25% -CXR: worsening pulmonary edema -Received IV Lasix on Admission and now on Oral maintenance dose -Cont carvedilol and digoxin,Low salt diet/Fluid restriction - cardiology consulted-appreciate Input-may need to check ICD for possible change -Diuresed a lot and clinically shows improvement -appreciate EP input for possible ICD change as an OP -Increased CO2 this morning with more drowsiness -CO2 has been high chronically -clinically much better today -ABG noted -CO2 69 and PO2 80 -CO2 This morning 47-Not increasing and the patient is clinically improved Will discharge today CAD -s/p stents placed in 2013 -s/p Med[employer] VVI implantable cardioverter defibrillator -- 02/2015 -Trop negative and EKG: no acute changes on admission -cont ASA, BB and statin - No symptoms reported PAROXYSMAL AFIB EKG showed LBBB with Afib -digoxin levels 0.6 -cont carvedilol, digoxin, amiodarone, apixaban -rate controlled and asymptomatic CKD STAGE IV -creatinine 1.7 (bl=1.7-1.9) -continue to monitor closely while on IV Lasix -renal function may get worse with IV Lasix -avoid nephrotoxic agents when able -Renal function is slightly worse again today -Remains stable at 1.5 DM 2 -recent A1C 7.7 -hold Prandin -start ISS -monitor BSG AC HS CHRONIC VENOUS STASIS ULCERS Daily wound care DYSLIPIDEMIA -cont statin DVT PROPHYLAXIS -cont Eliquis CODE STATUS DNR/DNI. Living will on chart. Consultants: Cardiology DISPOSITION Discussed with the Son and the patient in detailed in presence of the caring nurse Will discharge her today Follow up with dr Jean and [facility] Total time spent on discharge = 40 minutes This includes examination of the patient, discharge planning, medication reconciliation, and communication with other providers. Discharge Instructions Date of Service October 31, 2016. Admission Reason for Admission: Respiratory Distress Discharge Discharge Diagnosis / Problem: ACUTE ON CHRONIC HYPOXEMIC RESPIRATORY FAILURE Discharge Goals Goal(s): Prevent Disease Progression Activity Recommendations Activity Limitations: resume your previous activity . Instructions / Follow-Up Instructions / Follow-Up Dr Jean on 11/05/16 at 10:45 AM.Please keep appointment with the pesticide applicator Current Hospital Diet Patient's current hospital diet: Low Sodium Diet (2gm Na), Diabetes Type 2 Diet , AHA Diet (Heart Healthy) Discharge Diet Recommended Diet: Low Sodium Diet (2gm Na), Diabetes Type 2 Diet Fluid Restriction: 1500 ml (6 cups) Pending Studies Studies pending at discharge: no Laboratory Results Hemoglobin A1c Test 09/22/16 06:10 Range/Units Estimated Average Glucose 174 mg/dl Hemoglobin A1c 7.7 H 4.5-5.6 % Medical Emergencies . Who to Call and When: Medical Emergencies: If at any time you feel your situation is an emergency, please call 911 immediately. . Non-Emergent Contact Non-Emergency issues call your: Primary Care Provider (Janis) . Past History Medical & Surgical History: (1) CHF (congestive heart failure) (2) DM type 2 (diabetes mellitus, type 2) (3) Atrial fibrillation (4) CKD (chronic kidney disease), stage III (5) Systolic CHF, chronic (6) Respiratory failure (7) History of total bilateral knee replacement (8) S/P cholecystectomy (9) Status post placement of cardiac pacemaker . "Provider Documentation" section prepared by Rachael Munoz. . VTE Core Measure Inpt VTE Proph given/why not?: Other Anticoagulation (apixaban) <Electronically signed by Rachael Munoz M.D.> Additional Copies To Lola Jean M.D.
[2016-11-18] MEDS ORDERED: APIX1TAB3 PO (09:00)
[2017-02-07] MEDS ORDERED: REPA1TAB40 PO (23:31)
[2017-02-14] MEDS ORDERED: AMOX875T PO (12:57)
[2017-04-28] MEDS ORDERED: GABA-112 PO (09:52)
[2017-04-28] MEDS ORDERED: POLY335019 PO (09:52)
[2017-04-28] MEDS ORDERED: BISA10SU5 PR (09:52)
[2017-04-28] MEDS ORDERED: CARV6.252 PO (09:52)
[2017-04-28] MEDS ORDERED: APIX1TAB3 PO (09:52)
[2017-04-28] MEDS ORDERED: REPA1TAB40 PO (09:52)
[2017-04-28] MEDS ORDERED: POTA10TA PO (09:52)
[2017-04-28] MEDS ORDERED: FRS/40 PO (09:52)
[2017-04-28] MEDS ORDERED: SIMV20TA2 PO (09:52)
[2017-04-28] MEDS ORDERED: SENN1TAB86 PO (09:52)
[2017-04-28] MEDS ORDERED: FERR325T5 PO (09:52)
[2017-05-28] MEDS ORDERED: CIPR250T3 PO (10:24)
[2017-05-28] MEDS ORDERED: MCTP EXT (10:24)
[2017-05-28] MEDS ORDERED: CLC150 PO (10:49)
[2017-05-28] MEDS ORDERED: LCTX PO (10:51)
[2017-05-28] MEDS ORDERED: NVLGI/PEN SC (11:06)
[2017-05-28] MEDS ORDERED: INSDGIPEN SC (11:06)
[2017-05-28] MEDS ORDERED: CEFU1TAB36 PO (15:24)
== END 2016-10-31 13:59 | disposition home or self-care (01) | DRG 291 ==
LOC: ENRESERVDT → ENRESERVTM → EDBD 09:34 → C.EDA 09:37 → C.MED 12:55
PROVIDERS: ADMIT Hospitalist; ATTEND Internal Medicine
DX: I13.0 Hypertensive heart and chronic kidney disease with heart failure and stage 1 through stage 4 chronic kidney disease, or unspecified chronic kidney disease (principal); J96.21 Acute and chronic respiratory failure with hypoxia; I50.23 Acute on chronic systolic (congestive) heart failure; J96.22 Acute and chronic respiratory failure with hypercapnia; N18.4 Chronic kidney disease, stage 4 (severe); E66.2 Morbid (severe) obesity with alveolar hypoventilation; Z79.82 Long term (current) use of aspirin; Z79.899 Other long term (current) drug therapy; I87.8 Other specified disorders of veins; I25.10 Atherosclerotic heart disease of native coronary artery without angina pectoris; I48.0 Paroxysmal atrial fibrillation; E11.22 Type 2 diabetes mellitus with diabetic chronic kidney disease; E78.5 Hyperlipidemia, unspecified; Z66 Do not resuscitate; I25.5 Ischemic cardiomyopathy; Z95.810 Presence of automatic (implantable) cardiac defibrillator; Z68.31 Body mass index [BMI] 31.0-31.9, adult

== ENCOUNTER 2016-11-16 09:31 | Observation (INO) | payer OTHER ==
[~2016-11-16] VITALS: Ht 167.6 cm; Wt 105.9 kg
[~2016-11-16 09:31] MED LIST changes: +AMIO200T4 PO; +APIX1TAB3 PO; -ATOR-24 PO; +CARV12.52 PO; +CEFAZOLIN 1000MG/55 ML D5W IV SCH; +CEFAZOLIN 2000 MG/60 ML D5W IV SCH; +FERR1TAB13 PO; -FLUO20CA35 PO; +FRS/40 PO; -FRS/80 PO; -INSU1INJ SC; +ISR/30 PO; +LACTATED RINGER'S 1000ML 1,000 ML IV SCH; -LAMO200T PO; +LNX125 PO; +MAGN400T6 PO; +MELA1TAB5 PO; -METO25TA3 PO; +MICO2POW8 TOP; +NYST80OI TOP; -PHEN1TAB86 PO; -POTA10CA28 PO; -SENN-61 PO; +SENN-65 PO; +SIMV20TA2 PO; +SODIUM CHLORIDE 0.9% 1000ML 1,000 ML IV SCH; -TRAZ100T29 PO; +[UNRECOGNIZED DRUG - SUPPLY]
[2016-11-16 10:03] VITALS: BP 110/64; PULSE 54; TEMP 36.6; O2SAT 98; BMI 39.0
--- NOTE | 2016-11-16 10:16 | History & Physical Bridge Note ---
H&P Re-Evaluation Bridge Note: I have examined the patient, reviewed the History & Physical and in the interval since the performance of the History & Physical I have noted the following changes of clinical significance: She feels as if her breathing is good. She has some leg edema which is chronic. SHe is undergoing routine wound care on the legs. We discussed the R/B/A of an upgrade. She signed the consent form. She has held her apixaban.
--- NOTE | 2016-11-16 10:17 | Procedure Note ---
Pre-Mod Sedation Assessment General Date of Moderate Sedation: November 16, 2016. Review Cardiovascular: + irregularly irregular Airway Class: III Pre-Sedation Airway Assessment Oral Cavity: WNL Able to Visualize Vocal Cords: No Short Thick Neck: Yes Hx of Sleep Apnea: No Smoking Status: Never Smoker Mallampati Classification: Class III ASA Classification: Class III Procedure Planning Contraindications-for Mod Sed: None Yes (no teeth) Notes The planned sedation has been discussed with the patient and consent obtained. I have identified the patient, determined the appropriateness of sedation and have assessed the patient immediately prior to the procedure. All medicine(s) and interventions are by my order.
[2016-11-16] MEDS ORDERED: FENTANYL CITRATE INJ 50 MCG/1 ML 2 ML VIAL ONE (12:30)
[2016-11-16] MEDS ORDERED: MIDAZOLAM HCL 5 MG/ML 1 ML VIAL ONE (12:30)
[2016-11-16] MEDS ORDERED: BACITRACIN OINT 0.9 GM PKT ONE (12:30)
[2016-11-16] MEDS ORDERED: BUPIVACAINE 0.5 % 5 MG/1 ML MPF 30ML VIAL ONE (12:31)
[2016-11-16] MEDS ORDERED: BACITRACIN 50000 UNIT VIAL ONE (12:31)
[2016-11-16] MEDS ORDERED: LIDOCAINE HCL 1% 20 ML VIAL ONE (12:31)
--- NOTE | 2016-11-16 14:41 | Procedure Note ---
Post-Mod Sedation Assessment General Date of Moderate Sedation November 16, 2016. Vital Signs: Vital Signs Past 12 Hours Date Time Temp Pulse Resp B/P Pulse Ox O2 Delivery O2 Flow Rate FiO2 11/16/16 14:30 77 16 113/71 98 Room Air 11/16/16 10:03 36.6 54 20 110/64 98 Nasal Cannula 2 Review - Discharge Criteria Vital Signs Stable: Yes Alert/Oriented/Conversant: Yes Returned to Baseline Mental St: Yes Nausea Absent/Minimal: Yes Pain/Discomfort/Absent/Minimal: Yes Normal/Baseline Respirations: Yes Active Bleeding?: No Pt Received D/C Instructions: N/A Prescriptions Given: None Specific Proced. D/C Criteria Distal Pulses Present (Cardiac: N/A Groin site assessed-Card Cath: N/A Voided Prior To Discharge: N/A Discharged Patients Adult Escort/Transportation: N/A
[2016-11-16] MEDS ORDERED: ACETAMINOPHEN 325 MG TAB PO PRN (14:45)
[2016-11-16] MEDS ORDERED: OXYCODONE/ACETAMINOPHEN 5-325 TAB PO PRN (14:45)
--- NOTE | 2016-11-16 14:46 | Cardiology Procedure Brief Nt ---
Preliminary Cardiology Note Procedure Date November 16, 2016. Pre-Procedure Diagnosis cardiomyopathy Post-Procedure Diagnosis same Procedure(s) Performed Upgrade of single chamber ICD to BiV ICD Otolaryngology Surgeon Gil Networking Engineer(s) none Estimated Blood Loss 15cc Medication(s) Versed, fentanyl Preliminary Findings Successful implant., No immediate complication. Pt in AFL Recommendations Admit for observation Specimens none Disposition PCU
[2016-11-16 15:03] VITALS: BP 104/65; PULSE 73; TEMP 36.2; O2SAT 95; Ht 167.6 cm; Wt 105.9 kg
[2016-11-16 15:23] VITALS: BP 114/71; PULSE 66; O2SAT 97
[2016-11-16] MEDS ORDERED: IV FLUIDS COMPLETED PRN (15:30)
[2016-11-16 16:00] VITALS: O2SAT 96
[2016-11-16] MEDS: REPAGLINIDE 1 MG TAB PO SCH (16:42)
[2016-11-16] MEDS ORDERED: FUROSEMIDE 40 MG TAB PO ONE (17:15)
[2016-11-16] MEDS: CEFAZOLIN IV 2,000 MG in DEXTROSE 5% 50ML 50 ML IV SCH (17:54)
[2016-11-16 19:32] VITALS: BP 126/75; PULSE 71; TEMP 36.2; O2SAT 97
[2016-11-16 20:15] VITALS: O2SAT 97
[2016-11-16] MEDS: GABAPENTIN 100 MG CAP PO SCH (20:41)
[2016-11-16] MEDS: CARVEDILOL 12.5 MG TAB PO SCH (20:41)
[2016-11-16] MEDS: OXYCODONE HCL IR 5 MG TAB (IMMEDIATE RELEASE) PO PRN (20:42)
--- NOTE | 2016-11-16 21:18 | OPERATIVE REPORT ---
DATE OF OPERATION: 11/16/2016 PROCEDURE PERFORMED: Upgrade of single chamber ICD to biventricular ICD. STAFF COUNSELOR CAMP: Dr. Gm Cordero. INDICATIONS: Mr. Allyn Gudino is a 71-year-old woman with a history of cardiomyopathy. She had previously undergone implantation of single chamber ICD, but has been admitted several times over the past few months for congestive heart failure. The patient is noted to have a left bundle branch block morphology on her EKG with the duration greater than 150 milliseconds and as such was felt to be a good candidate for an upgrade to a biventricular device for cardiac resynchronization therapy. An atrial lead was also felt to be appropriate given the paroxysmal nature of the patient's atrial arrhythmias. PROCEDURE DETAIL: The patient was informed of risks, benefits and alternatives to the intended procedure. She understood such and wished to proceed. She was taken to the electrophysiology suite in a fasting state. Conscious sedation was administered per protocol and the patient was monitored electrocardiographically throughout today's procedure. The left deltopectoral area was prepped and draped in usual sterile fashion. This area was anesthetized using subcutaneous administration of xylocaine and Marcaine solution. The incision was made at this site and carried down to the previous implanted pulse generator using sharp dissection. Electrocautery was employed for dissection as well as for hemostasis. The previously implanted pulse generator was freed from the surrounding scar tissues and a partial capsulotomy was performed. At this point, the left axillary vein was accessed once using modified Seldinger technique and a micropuncture kit. Sheath was placed over the guidewire at this site and used to facilitate passage of a second guidewire prior to removal of the sheath. A second sheath was then advanced over a guidewire and used to facilitate passage of the right atrial lead under fluoroscopic guidance. Adequate sensing and threshold parameters were obtained prior to active fixation of his lead to the endocardial services. The proximal portion of lead was then sutured to the prepectoralis fascia using nonabsorbable suture. A third sheath was then passed over the remaining guidewire and used to facilitate passage of a guiding catheter for engagement of the coronary sinus. Once engaged limited coronary sinus venography was performed in order to identify a suitable cardiac vessel. Once identified center guidewire techniques were employed in order to deliver the pacing lead to the target vessel. Adequate sensing and threshold parameters were obtained in the absence of diaphragmatic stimulation at high output was also confirmed prior to removal of the guide and sheath. The proximal portion of lead was then sutured to the prepectoralis fascia using nonabsorbable suture. The retained right ventricular lead was detached from the old pulse generator. All the leads were attached to a new pulse generator. The device pocket was irrigated with an antibiotic solution prior to placement of the leads and device in this pocket. The pocket was subsequently closed in 3 layers of arousable sutures. Steri-Strips and sterile dressing were applied. The device was test noninvasively prior to conclusion of the procedure. The patient tolerated the procedure well. There were no immediate complications. EQUIPMENT USE: 1. New pulse generator, lap winder Medtronic, model #OISC0RI, serial #[id number]. 2. New right atrial lead, lap winder Medtronic, model #4076, serial #[id number]. 3. Retained right ventricular lead, lap winder Medtronic, model #6947M, serial #[id number]. 4. New left ventricular lead, lap winder Medtronic, model #4298, serial #[id number]. 5. Explanted pulse generator, lap winder Medtronic, model #DCSS8N0, serial #[id number]. MEASURE DATA: 1. Right atrial lead, flutter wave measured 0.8 millivolts, pacing threshold was 1.1 volts at 0.4 milliseconds with a pacing impedance of 361 ohms. 2. Right ventricular lead R-waves measured 7.3 millivolts, pacing threshold 0.75 volts at 0.4 milliseconds with a pacing impedance of 399 ohms. 3. Left ventricular lead, R-waves measured 10.1 millivolts, pacing threshold was 0.75 volts at 0.4 milliseconds with a pacing impedance of 703 ohms. IMPRESSION: Successful grade of single chamber implantable cardioverter-defibrillator to biventricular implantable cardioverter-defibrillator. PLAN: The patient will be monitored in the estes overnight. Additional dose of antibiotics will be administered. Chest x-ray and reinterrogation of the device will be performed in the morning. Should all parameters be adequate and the patient be feeling well, she will be considered for discharge at that time. I attest to the content of the Intraoperative Record and any orders documented therein. Any exceptio ns are noted below.
[2016-11-17] VITALS (7 sets, daily range): BP systolic 93–116; BP diastolic 52–71; PULSE 76–99; TEMP 36.3–37; O2SAT 94–98
[2016-11-17] MEDS: CEFAZOLIN IV 2,000 MG in DEXTROSE 5% 50ML 50 ML IV SCH ×3 (01:22→17:26)
[2016-11-17] MEDS: REPAGLINIDE 1 MG TAB PO SCH ×3 (07:00→17:26)
--- NOTE | 2016-11-17 07:55 | DIAGNOSTIC IMAGING REPORT ---
TWO VIEW CHEST CLINICAL HISTORY: AICD lead placement. FINDINGS: AP and lateral chest radiographs are compared to study dated 10/26/2016. The AP view is degraded by apical lordotic positioning. A 3-lead cardiac AICD partially obscures the left upper chest. Leads project over the ventricles and the coronary sinus. The heart is enlarged and there is atherosclerotic calcification of the thoracic aorta. There is pulmonary vascular congestion with evidence of mild interstitial edema. Small pleural effusions are noted with bibasilar atelectasis. There is no pneumothorax. The skeletal structures are osteopenic. Degenerative change is seen throughout the thoracic spine. There are healed left-sided rib fractures. IMPRESSION: 1. A 3-lead cardiac AICD is in place and detailed above. There is no pneumothorax seen post procedure. 2. Cardiomegaly with evidence of congestive failure and interstitial edema. 3. Small pleural effusions. Electronically signed by: Tae Bradshaw M.D. 11/17/2016 7:54 AM Dictated Date/Time: 11/17/2016 7:52 AM
[2016-11-17] MEDS: MAGNESIUM OXIDE 400 MG TAB PO SCH ×2 (08:09→10:00)
[2016-11-17] MEDS: ASPIRIN 81 MG ECTAB PO SCH ×2 (08:09→10:02)
[2016-11-17] MEDS: AMIODARONE 200 MG TAB PO SCH ×2 (08:09→10:02)
[2016-11-17] MEDS: GABAPENTIN 100 MG CAP PO SCH ×4 (08:09→20:40)
[2016-11-17] MEDS: ISOSORBIDE MONONITRATE 30 MG TABCR PO SCH ×2 (08:09→10:01)
[2016-11-17] MEDS: CARVEDILOL 12.5 MG TAB PO SCH ×3 (08:09→20:40)
[2016-11-17] MEDS ORDERED: LIDOCAINE HCL 1% 20 ML VIAL ONE (10:41)
[2016-11-17] MEDS ORDERED: BUPIVACAINE 0.5 % 5 MG/1 ML MPF 30ML VIAL ONE (10:41)
[2016-11-17] MEDS ORDERED: BACITRACIN 50000 UNIT VIAL ONE (10:42)
[2016-11-17] MEDS ORDERED: MIDAZOLAM HCL 5 MG/ML 1 ML VIAL ONE (10:42)
[2016-11-17] MEDS ORDERED: FENTANYL CITRATE INJ 50 MCG/1 ML 2 ML VIAL ONE (10:42)
[2016-11-17] MEDS: OXYCODONE HCL IR 5 MG TAB (IMMEDIATE RELEASE) PO PRN (14:59)
[2016-11-17] MEDS ORDERED: DIGOXIN 0.125 MG TAB PO SCH (16:00)
[2016-11-17] MEDS ORDERED: FUROSEMIDE 40 MG TAB PO ONE (17:00)
[2016-11-17] MEDS ORDERED: SIMVASTATIN 20 MG TAB PO SCH (21:00)
[2016-11-18] VITALS: O2SAT 94
[2016-11-18] MEDS: CEFAZOLIN IV 2,000 MG in DEXTROSE 5% 50ML 50 ML IV SCH ×2 (02:10→10:04)
[2016-11-18] MEDS: OXYCODONE HCL IR 5 MG TAB (IMMEDIATE RELEASE) PO PRN (02:24)
[2016-11-18 03:39] VITALS: BP 108/69; PULSE 99; TEMP 36.3; O2SAT 95
[2016-11-18 04:15] VITALS: O2SAT 95
[2016-11-18] MEDS ORDERED: FUROSEMIDE INJ 40 MG in SYRINGE 0 ML IV ONE (07:30)
[2016-11-18] MEDS: AMIODARONE 200 MG TAB PO SCH (07:49)
[2016-11-18] MEDS: GABAPENTIN 100 MG CAP PO SCH (07:49)
[2016-11-18] MEDS: MAGNESIUM OXIDE 400 MG TAB PO SCH (07:50)
[2016-11-18] MEDS: REPAGLINIDE 1 MG TAB PO SCH (07:50)
[2016-11-18] MEDS: ISOSORBIDE MONONITRATE 30 MG TABCR PO SCH (07:51)
[2016-11-18] MEDS: ASPIRIN 81 MG ECTAB PO SCH (07:51)
[2016-11-18 08:10] VITALS: BP 129/66; PULSE 66; TEMP 36.8; O2SAT 95
--- NOTE | 2016-11-18 08:10 | OPERATIVE REPORT ---
DATE OF OPERATION: 11/17/2016 PROCEDURE PERFORMED: Repositioning of right atrial pacing lead. STAFF DIESEL CRANE OPERATOR: Dr. Gm Cordero. INDICATIONS: Mrs. Allyn Gudino is a 71-year-old woman who the day prior had undergone implantation of a biventricular ICD. This was an upgrade from a single chamber ICD and there was the addition of both a left ventricular pacing lead and right atrial pacing lead. The patient was noted on x-ray this morning to have had a dislodgement of the right atrial pacing lead and she was advised to undergo a lead revision today. PROCEDURE IN DETAIL: The patient was informed of risks, benefits and alternatives to the intended procedure. She understood such and wished to proceed. She was taken to the cardiology suite in a fasting state. A preoperative antibiotic had been administered. The patient was monitored electrocardiographically throughout today's procedure and conscious sedation was administered per protocol. The left upper pectoral area was prepped and draped in usual sterile fashion. The area over the previously implanted pulse generator was then anesthetized using subcutaneous administration of a lidocaine solution and the previously made incision was then opened using sharp dissection. Electrocautery was also employed for dissection as well as for hemostasis. The device was removed from the pocket. The pocket was irrigated and cleaned due to extensive clot. At this juncture, the right atrial lead was detached from the pulse generator and the suture sleeve was freed. The helix was retracted on the lead and placement of a stylette allowed for repositioning of the right atrial lead. Adequate sensing and threshold parameters were obtained prior to active fixation of the lead to the endocardial surface. At this point, the proximal portion of lead was once again sutured to the pectoral fascia using nonabsorbable suture. The device pocket was then irrigated with an antibiotic solution. The device and leads were then placed in an antibiotic mesh pouch prior to replacement in the previously made pocket. The pocket was subsequently closed in 3 layers of absorbable sutures, Steri-Stripped and sterile dressing were applied. The device was tested noninvasively prior to conclusion of the procedure. The patient tolerated the procedure well. There were no immediate complications. EQUIPMENT USED: 1. Retained pulse generator, diet therapist Medtronic, model #NRWW6ZP, serial #[id number]. 2. Retained right atrial lead, diet therapist Medtronic, model #4076, serial #[id number]. 3. Retained right ventricular lead, diet therapist Medtronic, model #6947M, serial #[id number]. 4. Retained left ventricular lead, diet therapist Medtronic, model #4298, serial #[id number]. MEASURE DATA: One right atrial lead, flutter waves measured 2.8 millivolts, pacing threshold was not obtained due to the presence of atrial flutter, pacing impedance was 430 ohms. IMPRESSIONS: 1. Successful repositioning of right atrial lead. 2. Implantation of antibiotic mesh pouch. PLAN: The patient will be sent back to the estes for a period of monitoring. She will receive additional antibiotics overnight and reevaluation of her device with a chest x-ray and interrogation will be performed in the morning. Should all parameters be adequate at that time she will be discharged home. I attest to the content of the Intraoperative Record and any orders documented therein. Any exceptio ns are noted below.
--- NOTE | 2016-11-18 08:13 | DIAGNOSTIC IMAGING REPORT ---
CHEST 2 VIEWS ROUTINE HISTORY: EXACT TIME ORDERED Evaluate for pneumothorax and lead placement COMPARISON: Chest 11/17/2016. FINDINGS: Left-sided pacemaker/defibrillator. The leads appear unchanged in position. No pneumothorax. The heart is mildly enlarged. Mild pulmonary edema and trace bilateral pleural effusions persist. IMPRESSION: No change in the mild pulmonary edema and trace bilateral pleural effusions. Electronically signed by: Marquez Clark M.D. 11/18/2016 8:12 AM Dictated Date/Time: 11/18/2016 8:11 AM
[2016-11-18] MEDS ORDERED: APIX1TAB3 PO (09:00)
[2016-11-18] MEDS ORDERED: FUROSEMIDE 40 MG TAB PO SCH (09:00)
--- NOTE | 2016-11-18 09:03 | Discharge Instructions ---
Discharge Instructions Admission Admission Date: November 16, 2016 at 14:45 Admission Diagnosis: Cardiomylopathy. Discharge Care Plan - Problem: Keep incision dry and steri-strip intact until f/u in 1 week. No lifting left arm above shoulder or behind neck for 6 weeks Care Plan - Goal(s): Improve disease control, Therapeutic intervention Care Plan - Instructions: Activity Recommendations: limitations as noted below Recommended Home Diet: Diabetic AHA Phase I * Call 911 or immediately go to the Hospital Emergency Department nearest your location if you feel you have an emergent problem. Provider Instructions: Keep wound dry and steri-strip intact until f/u in 1 week. No lifting left arm above shoulder or behind neck for 6 weeks Inpt VTE Proph given/why not?: Contraindicated Follow Up Follow-Up: [facility] cardiology nurse visit for wound check in 1 week. Laboratory Results Test Results: Hemoglobin A1c Test 09/22/16 06:10 Range/Units Estimated Average Glucose 174 mg/dl Hemoglobin A1c 7.7 H 4.5-5.6 % Charito Vasquez Recommendations: Call your doctor if: * Temperature above 101 degrees * Pain not relieved by pain medicine ordered * There is increased drainage or redness from any incision * You have any unanswered questions or concerns. Your Doctors Instructions noted above were prepared by provider Ricco Cordero.
[2016-11-18 09:46] VITALS: BP 129/66; PULSE 66; TEMP 36.8; O2SAT 95
[2016-11-18] MEDS: CARVEDILOL 12.5 MG TAB PO SCH (10:05)
--- NOTE | 2016-11-24 09:54 | Discharge Summary ---
Discharge Summary Admission Date: November 16, 2016 at 14:45 Discharge Disposition: assisted facility Primary Diagnosis: cardiomyopathy Secondary Diagnoses/Problems: Medical Problems: (1) Acute kidney injury Status: Acute (2) Atrial fibrillation with RVR Status: Acute (3) Bilateral lower leg cellulitis Status: Acute (4) Cellulitis of right leg Status: Acute (5) Chronic CHF Status: Acute (6) Noncompliance with medications Status: Acute (7) Peripheral vascular disease Status: Acute (8) Respiratory failure Status: Acute Procedures: Implant BiV ICD (upgrade. Right atrial lead revision) Discharge Instructions Last Recorded Wt (Kilograms): 105.900 Activity Recommendations: limitations as noted below Diet At Discharge: resume previous diet Allergies: Coded Allergies: No Known Allergies (Unverified , 11/16/16) Discharge Medications: Resume all medications. Do not resume Eliquis until 11/21/2016 Additional Instructions: Keep wound dry and Steri-Strips intact for 1 week. No lifting left arm above shoulder behind neck for 6 weeks. Special Care: Call your doctor if: * Temperature above 101 degrees * Pain not relieved by pain medicine ordered * There is increased drainage or redness from any incision * You have any unanswered questions or concerns. Avoid all tobacco products. If you need help to stop smoking, call [place]'s FREE QUITLINE at . This is a free call. Admission HPI Frequent admissions for CHF and wide complex QRS. Atrial flutter Hospital Course The patient was admitted and underwent a brief period of hydration prior to implantation of a new left ventricular and right atrial lead. The pulse generator was changed to a biventricular device. The procedure was uncomplicated. The next morning however it was obvious that the right atrial lead had dislodged in the patient was brought back to the electrophysiology lab for repositioning. This was also uncomplicated. An antibiotic pouch was used in order to reduce the risk of infection secondary to early Re intervention. On the day of discharge patient did have some mild discomfort at the operative site. There was no significant hematoma. The wound appeared intact. The device interrogation revealed good function on all leads. The chest x-ray revealed stable positioning without evidence of complication. Should be noted that the patient had persistent atrial flutter throughout her hospitalization. This has been documented previously. Total time spent on discharge = This includes examination of the patient, discharge planning, medication reconciliation, and communication with other providers.
[2016-12-24] MEDS ORDERED: LSX40 PO (14:12)
[2016-12-24] MEDS ORDERED: CRG625 PO (14:12)
[2016-12-24] MEDS ORDERED: POTA10TA30 PO (14:12)
[2016-12-24] MEDS ORDERED: AMX500 PO (14:12)
[2017-02-07] MEDS ORDERED: REPA1TAB40 PO (23:31)
[2017-02-14] MEDS ORDERED: AMOX875T PO (12:57)
[2017-04-28] MEDS ORDERED: CARV6.252 PO (09:52)
[2017-04-28] MEDS ORDERED: FRS/40 PO (09:52)
[2017-04-28] MEDS ORDERED: REPA1TAB40 PO (09:52)
[2017-04-28] MEDS ORDERED: BISA10SU5 PR (09:52)
[2017-04-28] MEDS ORDERED: FERR325T5 PO (09:52)
[2017-04-28] MEDS ORDERED: SENN1TAB86 PO (09:52)
[2017-04-28] MEDS ORDERED: SIMV20TA2 PO (09:52)
[2017-04-28] MEDS ORDERED: GABA-112 PO (09:52)
[2017-04-28] MEDS ORDERED: APIX1TAB3 PO (09:52)
[2017-04-28] MEDS ORDERED: POTA10TA PO (09:52)
[2017-04-28] MEDS ORDERED: POLY335019 PO (09:52)
[2017-05-28] MEDS ORDERED: CIPR250T3 PO (10:24)
[2017-05-28] MEDS ORDERED: MCTP EXT (10:24)
[2017-05-28] MEDS ORDERED: CLC150 PO (10:49)
[2017-05-28] MEDS ORDERED: LCTX PO (10:51)
[2017-05-28] MEDS ORDERED: NVLGI/PEN SC (11:06)
[2017-05-28] MEDS ORDERED: INSDGIPEN SC (11:06)
[2017-05-28] MEDS ORDERED: CEFU1TAB36 PO (15:24)
== END 2016-11-18 11:21 | disposition home or self-care (01) ==
LOC: ENRESERVTM → ENRESERVDT → C.ACU 09:31 → C.2T 14:45
PROVIDERS: ADMIT Internal Medicine Clinical Cardiac Electrophysiology; ATTEND Internal Medicine Clinical Cardiac Electrophysiology
DX: I50.9 Heart failure, unspecified (principal); I25.5 Ischemic cardiomyopathy; I48.0 Paroxysmal atrial fibrillation; I73.9 Peripheral vascular disease, unspecified; I10 Essential (primary) hypertension; E78.5 Hyperlipidemia, unspecified; K21.9 Gastro-esophageal reflux disease without esophagitis; Z87.442 Personal history of urinary calculi; Z85.42 Personal history of malignant neoplasm of other parts of uterus; Z79.82 Long term (current) use of aspirin; Z82.49 Family history of ischemic heart disease and other diseases of the circulatory system

== ENCOUNTER 2016-12-19 16:01 | Inpatient (IN) | payer OTHER ==
[~2016-12-19] VITALS: Ht 165.1 cm; Wt 107.2 kg
[~2016-12-19 16:01] MED LIST changes: -CEFAZOLIN 1000MG/55 ML D5W IV SCH; -CEFAZOLIN 2000 MG/60 ML D5W IV SCH; +ISOS30TA51 PO; -ISR/30 PO; -LACTATED RINGER'S 1000ML 1,000 ML IV SCH; -SODIUM CHLORIDE 0.9% 1000ML 1,000 ML IV SCH
[2016-12-19 16:43] LABS: BASO % 0.2 %; BASO ABS # 0.03 K/uL (0-0.2); EOS % 1.1 %; HEMATOCRIT 38.4 % (37-47); IG% 0.4 %; LYMPH % 1.9 %; LYMPH ABS # 0.35 K/uL (1.2-3.4); MEAN CELL VOLUME 95.5 fL (80-100); MEAN CORPUSCULAR HEMOGLOBIN 27.9 pg (25-34); MEAN CORPUSCULAR HGB CONC 29.2 g/dl (32-36); MEAN PLATELET VOLUME 9.1 fL (7.4-10.4); MONO % 4.8 %; NEUT % 91.6 %; PLATELET COUNT 201 K/uL (130-400); RED BLOOD COUNT 4.02 M/uL (4.2-5.4); WHITE BLOOD COUNT 18.89 K/uL (4.8-10.8)
--- NOTE | 2016-12-19 16:58 | DIAGNOSTIC IMAGING REPORT ---
CHEST ONE VIEW PORTABLE CLINICAL HISTORY: sob dyspnea COMPARISON STUDY: 11/18/2016 FINDINGS: Findings consistent with pulmonary edema. Permanent bipolar cardiac pacer/fibrillator. Diaphragms are smooth. Very slight plantar right lateral gastric angle. IMPRESSION: Pulmonary edema Electronically signed by: Sen Magallon M.D. 12/19/2016 4:57 PM Dictated Date/Time: 12/19/2016 4:56 PM
[2016-12-19 17:05] LABS: VEN BLOOD GAS BASE EXCESS 4.7 mmol/L
[2016-12-19 17:14] LABS: ANISOCYTOSIS PRESENT; COMPLETE YES; POLYCHROMASIA 1+
[2016-12-19 17:23] LABS: INR 1.1 (0.9-1.1); PROTHROMBIN TIME (PATIENT) 12.1 SECONDS (9.0-12.0)
[2016-12-19 17:31] VITALS: PULSE 112; O2SAT 94
[2016-12-19 17:37] LABS: ALT/SGPT 14 U/L (12-78); BLOOD UREA NITROGEN 36 mg/dl (7-18); BUN/CREATININE RATIO 22.3 (10-20); CALCIUM 9.2 mg/dl (8.5-10.1); CARBON DIOXIDE 31 mmol/L (21-32); CHLORIDE 102 mmol/L (98-107); GLUCOSE 247 mg/dl (70-99); POTASSIUM 4.5 mmol/L (3.5-5.1); SODIUM 140 mmol/L (136-145)
[2016-12-19 17:42] LABS: ALB/GLOB RATIO 0.7 (0.9-2); ALKALINE PHOSPHATASE 53 U/L (45-117); AST/SGOT 18 U/L (15-37)
[2016-12-19] MEDS ORDERED: PIPERACILLIN/TAZOBACTAM 4.5 GM/100ML D5W IV STA (17:50)
[2016-12-19 18:00] VITALS: O2SAT 93; BMI 40.0
[2016-12-19] MEDS ORDERED: NITROGLYCERIN OINT 2% 1GM PACKET EXT ONE (18:00)
[2016-12-19] MEDS ORDERED: NITROGLYCERIN OINT 2% 1GM PACKET ONE (18:10)
[2016-12-19] MEDS ORDERED: FUROSEMIDE INJ 80 MG in SYRINGE 0 ML IV ONE (18:15)
--- NOTE | 2016-12-19 18:29 | EMERGENCY ROOM VISIT NOTE ---
History Report prepared by Luis A: Angela Bowie Under the Supervision of: Dr. Austin Peres D.O. First contact with patient: 16:16 Chief Complaint: SHORTNESS OF BREATH Stated Complaint: SOB/ WEAKNESS/ [facility] Nursing Triage Summary: Patient arrive esau [facility] from [facility] with complaints of SOB and weakness. Per ems report, patient wears O2 at all times, but when ems arrives they saw the oxygen tubing but it was cut in half; they are unsure how long patient has gone without O2. Patient was sitting in her chair and was having increasing SOB and change in mental status. When ems arrived O2 sats was 63% on room air. PT is non-insulin DM with diabetic neuropathy. Pacemaker was changed last week. History of Present Illness The patient is a 71 year old female who presents to the Emergency Room with complaints of constant shortness of breath beginning a few hours ago. Per nursing staff, the patient wears oxygen at all times at home. EMS reports that on arrival they noticed that her oxygen tubing was cut in half and they are not sure how long it was like that. The director of [facility] where she lives reports that the patient was complaining of constipation at lunch today and was given milk of magnesia. Over the following 3 hours the patient became increasingly lethargic and not very responsive. He reports that the patient is on 2L of oxygen and had it on intact at 3pm. He notes that it could not have been cut longer than 2 hours. The director states that the patient is not on any blood thinners. He denies any confusion and states that she is only much less responsive than normal. The patient denies any headaches, chest pain, shortness of breath, fever, abdominal pain. The director reports that the patient recently had a new pacemaker placed to replace her old one. Pt is on Eliquis. Source of History: patient, caregiver, nursing staff Onset: a few hours ago Position: other (global) Quality: other (shortness of breath) Timing: constant Associated Symptoms: No fevers, No headache, No chest pain, No abdominal pain Note: Complains of lethargy, unresponsiveness. Denies any confusion. Review of Systems See HPI for pertinent positives & negatives. A total of 10 systems reviewed and were otherwise negative. Past Medical & Surgical Medical Problems: (1) Acute and chronic respiratory failure (2) Atrial fibrillation (3) CHF (congestive heart failure) (4) CKD (chronic kidney disease), stage III (5) Coronary artery disease (6) DM type 2 (diabetes mellitus, type 2) (7) History of osteomyelitis (8) History of uterine cancer (9) HTN (hypertension) (10) Pacemaker (11) Respiratory distress (12) Systolic CHF, chronic Surgical Problems: (1) History of total bilateral knee replacement (2) S/P cholecystectomy (3) Status post placement of cardiac pacemaker Family History Cancer MOTHER Heart disease MOTHER Social History Smoking Status: Never Smoker Drug Use: none Marital Status: Housing Status: other Occupation Status: retired Current/Historical Medications Scheduled Amiodarone Hcl (Cordarone), 200 MG PO DAILY Apixaban (Eliquis), 5 MG PO BID Aspirin (Aspirin Chewable), 81 MG PO QAM Carvedilol (Coreg), 12.5 MG PO BID Cholecalciferol (Vitamin D), 2,000 INTUNIT PO QAM Digoxin (Digoxin), 125 MCG PO Q2D Ferrous Sulfate ( Ferrous Sulfate), 1 TAB PO BIDM Furosemide (Lasix), 40 MG PO DAILY Gabapentin (Neurontin), 100 MG PO TID Isosorbide Dinitrate (Isordil), 30 MG PO DAILY Melatonin ( Melatonin), 1 TAB PO HS Repaglinide (Prandin), 0.5 MG PO AC Senna/Docusate Sod (Senokot S), 1 TAB PO BID Simvastatin (Zocor), 20 MG PO QPM Scheduled PRN Acetaminophen (Tylenol), 650 MG PO Q4 PRN for Pain or Fever Bisacodyl (Bisacodyl), 10 MG RE DAILY PRN for Constipation Magnesium Hydroxide (Milk Of Magnesia), 30 ML PO DIRECTED PRN for constipation Polyethylene Glycol 3350 (Miralax), 17 GM PO DAILY PRN for Constipation Allergies Coded Allergies: No Known Allergies (Unverified , 12/19/16) Physical Exam Vital Signs Date Time Temp Pulse Resp B/P (MAP) Pulse Ox O2 Delivery O2 Flow Rate FiO2 12/19/16 18:08 112 20 109/61 93 BiPAP 12/19/16 18:00 93 BiPAP 4.0 35 12/19/16 17:31 112 94 35 12/19/16 17:07 108 22 126/78 93 Nasal Cannula 4.0 12/19/16 16:32 93 Nasal Cannula 4.0 12/19/16 16:22 112 12/19/16 16:09 36.8 109 34 133/74 86 Nasal Cannula 3.0 12/19/16 16:09 86 Nasal Cannula 3.0 12/19/16 16:09 86 Nasal Cannula 3.0 Physical Exam GENERAL: ill appearing, disheveled, difficult to arouse EYE EXAM: normal conjunctiva OROPHARYNX: no exudate, no erythema, lips, buccal mucosa, and tongue normal and mucous membranes are moist NECK: supple, no nuchal rigidity, no adenopathy, non-tender, unable to appreciate JVD LUNGS: Diminished at bases. Normal chest wall mechanics HEART: distant, no murmurs, S1 normal and S2 normal CHEST: fullness over pacemaker in left chest wall, incision is clean dry intact ABDOMEN: abdomen soft, non-tender, normo-active bowel sounds, no masses, no rebound or guarding. UPPER EXTREMITIES: upper extremities are grossly normal. LOWER EXTREMITIES: pitting edema bilaterally, calves are equal bilaterally. ulcers on bilateral legs NEURO EXAM: Normal sensorium, cranial nerves II-XII grossly intact, normal speech, no focal weakness in the legs or arms Medical Decision & Procedures ER Provider Diagnostic Interpretation: Radiology results as stated below per my review and the radiologist's interpretation: CHEST ONE VIEW PORTABLE FINDINGS: Findings consistent with pulmonary edema. Permanent bipolar cardiac pacer/fibrillator. Diaphragms are smooth. Very slight plantar right lateral gastric angle. IMPRESSION: Pulmonary edema Electronically signed by: Sen Magallon M.D. 12/19/2016 4:57 PM Dictated Date/Time: 12/19/2016 4:56 PM Laboratory Results 12/19/16 16:15 Red Blood Count 4.02, Mean Corpuscular Volume 95.5, Mean Corpuscular Hemoglobin 27.9, Mean Corpuscular Hemoglobin Concent 29.2, Mean Platelet Volume 9.1, Neutrophils (%) (Auto) 91.6, Lymphocytes (%) (Auto) 1.9, Monocytes (%) (Auto) 4.8, Eosinophils (%) (Auto) 1.1, Basophils (%) (Auto) 0.2, Neutrophils # (Auto) 17.32, Lymphocytes # (Auto) 0.35, Monocytes # (Auto) 0.91, Eosinophils # (Auto) 0.20, Basophils # (Auto) 0.03 12/19/16 17:05 Test 12/19/16 16:15 12/19/16 16:52 12/19/16 17:05 White Blood Count 18.89 K/uL (4.8-10.8) Red Blood Count 4.02 M/uL (4.2-5.4) Hemoglobin 11.2 g/dL (12.0-16.0) Hematocrit 38.4 % (37-47) Mean Corpuscular Volume 95.5 fL (80-100) Mean Corpuscular Hemoglobin 27.9 pg (25-34) Mean Corpuscular Hemoglobin Concent 29.2 g/dl (32-36) Platelet Count 201 K/uL (130-400) Mean Platelet Volume 9.1 fL (7.4-10.4) Neutrophils (%) (Auto) 91.6 % Lymphocytes (%) (Auto) 1.9 % Monocytes (%) (Auto) 4.8 % Eosinophils (%) (Auto) 1.1 % Basophils (%) (Auto) 0.2 % Neutrophils # (Auto) 17.32 K/uL (1.4-6.5) Lymphocytes # (Auto) 0.35 K/uL (1.2-3.4) Monocytes # (Auto) 0.91 K/uL (0.11-0.59) Eosinophils # (Auto) 0.20 K/uL (0-0.5) Basophils # (Auto) 0.03 K/uL (0-0.2) RDW Standard Deviation 71.1 fL (36.4-46.3) RDW Coefficient of Variation 20.5 % (11.5-14.5) Immature Granulocyte % (Auto) 0.4 % Immature Granulocyte # (Auto) 0.08 K/uL (0.00-0.02) Polychromasia 1+ Anisocytosis PRESENT Venous Blood pH 7.37 (7.36-7.41) Venous Blood Partial Pressure CO2 55 mmHg (38.0-50.0) Venous Blood Partial Pressure O2 40 mmHg Venous Blood HCO3 31 mmol/L Venous Blood Oxygen Saturation 73.0 % Venous Blood Base Excess 4.7 mmol/L Lactic Acid Level 2.4 mmol/L (0.4-2.0) Prothrombin Time 12.1 SECONDS (9.0-12.0) Prothromb Time International Ratio 1.1 (0.9-1.1) Anion Gap 7.0 mmol/L (3-11) Est Creatinine Clear Calc Drug Dose 38.5 ml/min Estimated GFR () 36.7 Estimated GFR (Non- 31.6 BUN/Creatinine Ratio 22.3 (10-20) Calcium Level 9.2 mg/dl (8.5-10.1) Total Bilirubin 0.7 mg/dl (0.2-1) Aspartate Amino Transf (AST/SGOT) 18 U/L (15-37) Alanine Aminotransferase (ALT/SGPT) 14 U/L (12-78) Alkaline Phosphatase 53 U/L (45-117) Troponin I < 0.015 ng/ml (0-0.045) Pro-B-Type Natriuretic Peptide 2754 pg/ml (0-900) Total Protein 8.8 gm/dl (6.4-8.2) Albumin 3.5 gm/dl (3.4-5.0) Globulin 5.3 gm/dl (2.5-4.0) Albumin/Globulin Ratio 0.7 (0.9-2) Chemistry Specimen Hemolysis Digoxin Level 0.9 ng/ml (0.8-2.0) Laboratory results per my review. Medications Administered Medications (Trade) Dose Ordered Sig/Jose Route Start Time Stop Time Status Last Admin Dose Admin Piperacillin Sod/ Tazobactam Sod (Zosyn Iv) 4.5 gm NOW STAT IV 12/19/16 17:50 12/19/16 17:57 DC 12/19/16 18:02 4.5 GM ECG Indication: SOB/dyspnea Rate (beats per minute): 109 Rhythm: other (atrial sensed ventricular paced) Findings: ST depression (Lateral), left axis deviation Comparison ECG Date: 10/25/16 Change: Now completely paced. ED Course ED COURSE: Vital signs were reviewed and showed hypoxic and tachycardic The patients medical record was reviewed The above diagnostic studies were performed and reviewed. ED treatments and interventions as stated above. 1616: The patient was evaluated in room A12B. A complete history and physical examination was performed. Per review of records, the patient was last admitted on the and that is when she had the pacemaker replaced. 1704: I reevaluated the patient. She refused bipap. 1740: I reviewed the patient's case with Dr. Ardon. He will evaluate the patient for further management. 174: I reevaluated the patient and she got up and out of bed and became dizzy and nauseous. 175: Upon reevaluation, the patient is doing well.I discussed my findings with the patient and she understands and agrees with the treatment plan. Based on the patients age, coexisting illnesses, exam and lab findings the decision to treat as an inpatient was made. The patient remained stable while under my care. The patient will be evaluated for further management. Medical Decision Differential diagnoses includes but is not limited to pneumonia, bronchitis, COPD/Asthma exacerbation, pneumothorax, pulmonary embolism, congestive heart failure, acute coronary syndrome. Medication Reconciliation: I attest that I have personally reviewed the patient' s current medication list. Blood pressure screening: Patient was found to have normal blood pressure on screening and does not require follow-up. Patient is a 71-year-old female who presents the ER for altered mental status. She was found with her oxygen tubing not connected. She was hypoxic at 80%. She is transported via EMS. She is a DO NOT RESUSCITATE/DNI. On my evaluation she was difficult to arouse but was alert and oriented to person place and time. CBC shows a white count of 18,000. BMP was unremarkable. Lactic acid was elevated at 2.4 and proBNP elevated at 2700. She is on Eliquis. I did not pursue PE secondary to this. Digoxin was 0.9. VBG shows a CO2 of 55. Initially upon presentation she was hypoxic at 85% on HER-2 liters. She was placed on BiPAP due to her chest x-ray supporting pulmonary edema. She has no fever. She has no other complaints to suggest infection. Antibiotics were held and she was admitted to internal medicine secondary to hypoxia and respiratory failure along with pulmonary edema. Consults Time Called: 173 Consulting Physician: Dr. Denise Brannon Returned Call: 174 I reviewed the patient's case with Dr. Ardon. He will evaluate the patient for further management. Impression Primary Impression: Acute on chronic respiratory failure Additional Impressions: Lactic acidosis Leukocytosis Critical Care I have personally spent 35 minutes of critical care time in the direct management of this patient. This includes bedside care, interpretation of diagnostic studies, and testing, discussion with consultants, patient, and family members, and other required patient management activities. This 35 minutes is in excess of all separately billable procedures. Scribe Attestation The scribe's documentation has been prepared under my direction and personally reviewed by me in its entirety. I confirm that the note above accurately reflects all work, treatment, procedures, and medical decision making performed by me. Departure Information Dispostion Being Evaluated By Hospitalist Referrals Lola Jean M.D. (PCP) Patient Instructions My [facility] Problem Qualifiers Primary Impression: Acute on chronic respiratory failure Respiratory failure complication: hypoxia and hypercapnia Qualified Codes: J96.21 - Acute and chronic respiratory failure with hypoxia; J96.22 - Acute and chronic respiratory failure with hypercapnia Additional Impressions: Leukocytosis Leukocytosis type: unspecified Qualified Codes: D72.829 - Elevated white blood cell count, unspecified
[2016-12-19 18:46] LABS: URINE APPEARANCE CLOUDY (CLEAR); URINE BILIRUBIN NEG (NEG); URINE COLOR YELLOW; URINE NITRITE POS (NEG); URINE SPECIFIC GRAVITY 1.017 (1.000-1.030); UROBILINOGEN NEG (NEG); ZZURINE CULT IF INDIC CATH YES
[2016-12-19 18:48] LABS: MANUAL MICROSCOPIC REQUIRED? NO; REVIEW REQ? NO
[2016-12-19 19:19] VITALS: PULSE 110; O2SAT 98
[2016-12-19 19:30] VITALS: BP 103/65; PULSE 111; TEMP 37.5; O2SAT 94
--- NOTE | 2016-12-19 20:33 | History and Physical ---
History & Physical Date & Time of Service: Dec 19, 2016 at ~ 17:30 . Chief Complaint: shortness of breath, lethargy . Primary Care Physician: Lola Jean M.D. . History of Present Illness Source: clinic records, hospital records 71 year-old female followed by Dr. Lola Jean for Internal Medicine. History of ischemic heart disease, systolic heart failure, atrial fibrillation, chronic respiratory failure, diabetes, and other problems noted below. She is a resident at [facility]. Referred to ED because of breast rate difficulties and lethargy. Patient unable to provide any reliable history because of her mental status. ED physician spoke with staff from [facility]. Apparently her oxygen tubing had been partially severed or disconnected. O2 saturation was 63% on room air when EMS arrived. History of present illness and review of systems attempted, but patient was very lethargic and unable to give reliable/consistent answers. . Past Medical/Surgical History Chronic and Resolved Medical Problems: (1) Atrial fibrillation Status: Chronic (2) CKD (chronic kidney disease), stage III Status: Chronic (3) Coronary artery disease Status: Chronic (4) DM type 2 (diabetes mellitus, type 2) Status: Chronic (5) History of osteomyelitis Permanent Comment: R third toe Status: Chronic (6) History of uterine cancer Permanent Comment: s/p XRT Status: Chronic (7) HTN (hypertension) Status: Chronic (8) Pacemaker Status: Chronic (9) Systolic CHF, chronic Permanent Comment: LVEF 20-25% Status: Chronic Surgical Problems: (1) History of total bilateral knee replacement Status: Chronic (2) S/P cholecystectomy Status: Chronic (3) Status post placement of cardiac pacemaker Status: Chronic . Family History MOTHER Cancer Heart disease Social History Smoking Status: Never Smoker Alcohol Use: none Drug Use: none Marital Status: Housing status: assisted living ([facility]) Occupational Status: retired Immunizations History of Influenza Vaccine: Yes History of Tetanus Vaccine?: No History of Pneumococcal: Yes History of Hepatitis B Vaccine: No Allergies Coded Allergies: No Known Allergies (Unverified , 12/19/16) Home Medications Scheduled Amiodarone Hcl (Cordarone), 200 MG PO DAILY Apixaban (Eliquis), 5 MG PO BID Aspirin (Aspirin Chewable), 81 MG PO QAM Carvedilol (Coreg), 12.5 MG PO BID Cholecalciferol (Vitamin D), 2,000 INTUNIT PO QAM Digoxin (Digoxin), 125 MCG PO Q2D Ferrous Sulfate ( Ferrous Sulfate), 1 TAB PO BIDM Furosemide (Lasix), 40 MG PO DAILY Gabapentin (Neurontin), 100 MG PO TID Isosorbide Dinitrate (Isordil), 30 MG PO DAILY Melatonin ( Melatonin), 1 TAB PO HS Repaglinide (Prandin), 0.5 MG PO AC Senna/Docusate Sod (Senokot S), 1 TAB PO BID Simvastatin (Zocor), 20 MG PO QPM Scheduled PRN Acetaminophen (Tylenol), 650 MG PO Q4 PRN for Pain or Fever Bisacodyl (Bisacodyl), 10 MG RE DAILY PRN for Constipation Magnesium Hydroxide (Milk Of Magnesia), 30 ML PO DIRECTED PRN for constipation Polyethylene Glycol 3350 (Miralax), 17 GM PO DAILY PRN for Constipation Review of Systems Unable to obtain due to patient's mental status. . Physical Exam Vital Signs Date Time Temp Pulse Resp B/P (MAP) Pulse Ox O2 Delivery O2 Flow Rate FiO2 12/19/16 19:30 37.5 111 24 103/65 (78) 94 BiPAP 35 12/19/16 19:19 110 98 35 12/19/16 18:27 110 20 103/59 93 BiPAP 12/19/16 18:08 112 20 109/61 93 BiPAP 12/19/16 18:00 93 BiPAP 4.0 35 12/19/16 17:31 112 94 35 12/19/16 17:07 108 22 126/78 93 Nasal Cannula 4.0 12/19/16 16:32 93 Nasal Cannula 4.0 12/19/16 16:22 112 12/19/16 16:09 36.8 109 34 133/74 86 Nasal Cannula 3.0 12/19/16 16:09 86 Nasal Cannula 3.0 12/19/16 16:09 86 Nasal Cannula 3.0 General Appearance: + moderate distress, + obese Head: normocephalic, atraumatic Eyes: PERRL, EOMI, sclerae normal, + pertinent finding (conjunctivae pink) ENT: + pertinent finding (wearing BiPAP; unable to perform complete exam) Neck: supple, no adenopathy, thyroid normal, trachea midline Respiratory/Chest: + respiratory distress, + accessory muscle use, + rales ( left base), + wheezing Cardiovascular: regular rate, rhythm, + JVD, + tachycardia, + abnormal peripheral pulses (pedal pulses diminished), + pertinent finding (3+ pretibial edema; capillary refill toes 1 sec) Abdomen/GI: normal bowel sounds, non tender, soft, no organomegaly (exam limited), no pulsatile mass, + pertinent finding (obese) Extremities/Musculoskelatal: no calf tenderness, + pertinent finding (freshly applied dressings to both legs) Neurologic/Psych: + pertinent finding (PERRL, EOMI; follows simple commands; unable to assess orientation; diffuse motor weakness ~ 4/5) Skin: warm/dry, + pertinent finding (chronic venous stasis changes; shallow ulcers bilat legs noted by ED nurse before dressings applied) Lymphatic: no adenopathy (cervical) Diagnostics Laboratory Results Results Past 24 Hours Test 12/19/16 16:15 12/19/16 16:52 12/19/16 17:05 12/19/16 18:24 Range/Units White Blood Count 18.89 4.8-10.8 K/uL Red Blood Count 4.02 4.2-5.4 M/uL Hemoglobin 11.2 12.0-16.0 g/dL Hematocrit 38.4 37-47 % Mean Corpuscular Volume 95.5 80-100 fL Mean Corpuscular Hemoglobin 27.9 25-34 pg Mean Corpuscular Hemoglobin Concent 29.2 32-36 g/dl Platelet Count 201 130-400 K/uL Mean Platelet Volume 9.1 7.4-10.4 fL Neutrophils (%) (Auto) 91.6 % Lymphocytes (%) (Auto) 1.9 % Monocytes (%) (Auto) 4.8 % Eosinophils (%) (Auto) 1.1 % Basophils (%) (Auto) 0.2 % Neutrophils # (Auto) 17.32 1.4-6.5 K/uL Lymphocytes # (Auto) 0.35 1.2-3.4 K/uL Monocytes # (Auto) 0.91 0.11-0.59 K/uL Eosinophils # (Auto) 0.20 0-0.5 K/uL Basophils # (Auto) 0.03 0-0.2 K/uL RDW Standard Deviation 71.1 36.4-46.3 fL RDW Coefficient of Variation 20.5 11.5-14.5 % Immature Granulocyte % (Auto) 0.4 % Immature Granulocyte # (Auto) 0.08 0.00-0.02 K/uL Polychromasia 1+ Anisocytosis PRESENT Venous Blood pH 7.37 7.36-7.41 Venous Blood Partial Pressure CO2 55 38.0-50.0 mmHg Venous Blood Partial Pressure O2 40 mmHg Venous Blood HCO3 31 mmol/L Venous Blood Oxygen Saturation 73.0 % Venous Blood Base Excess 4.7 mmol/L Lactic Acid Level 2.4 0.4-2.0 mmol/L Prothrombin Time 12.1 9.0-12.0 SECONDS Prothromb Time International Ratio 1.1 0.9-1.1 Sodium Level 140 136-145 mmol/L Potassium Level 4.5 3.5-5.1 mmol/L Chloride Level 102 98-107 mmol/L Carbon Dioxide Level 31 21-32 mmol/L Anion Gap 7.0 3-11 mmol/L Blood Urea Nitrogen 36 7-18 mg/dl Creatinine 1.60 0.60-1.20 mg/dl Est Creatinine Clear Calc Drug Dose 38.5 ml/min Estimated GFR () 36.7 Estimated GFR (Non- 31.6 BUN/Creatinine Ratio 22.3 10-20 Random Glucose 247 70-99 mg/dl Calcium Level 9.2 8.5-10.1 mg/dl Total Bilirubin 0.7 0.2-1 mg/dl Aspartate Amino Transf (AST/SGOT) 18 15-37 U/L Alanine Aminotransferase (ALT/SGPT) 14 12-78 U/L Alkaline Phosphatase 53 45-117 U/L Troponin I < 0.015 0-0.045 ng/ml Pro-B-Type Natriuretic Peptide 2754 0-900 pg/ml Total Protein 8.8 6.4-8.2 gm/dl Albumin 3.5 3.4-5.0 gm/dl Globulin 5.3 2.5-4.0 gm/dl Albumin/Globulin Ratio 0.7 0.9-2 Chemistry Specimen Hemolysis Digoxin Level 0.9 0.8-2.0 ng/ml Urine Color YELLOW Urine Appearance CLOUDY CLEAR Urine pH 5.0 4.5-7.5 Urine Specific Buckner 1.017 1.000-1.030 Urine Protein NEG NEG Urine Glucose (UA) NEG NEG Urine Ketones NEG NEG Urine Occult Blood TRACE NEG Urine Nitrite POS NEG Urine Bilirubin NEG NEG Urine Urobilinogen NEG NEG Urine Leukocyte Esterase LARGE NEG Urine WBC (Auto) 10-30 0-5 /hpf Urine RBC (Auto) 0-4 0-4 /hpf Urine Hyaline Casts (Auto) 5-10 0-5 /lpf Urine Epithelial Cells (Auto) 5-10 0-5 /lpf Urine Bacteria (Auto) 2+ NEG Microbiology Results 12/19/16 Blood Culture, Received Pending 12/19/16 Urine Culture, Received Pending Diagnostic Radiology Portable chest x-ray reviewed by the undersigned and formally interpreted by Radiology: CHEST ONE VIEW PORTABLE COMPARISON STUDY: 11/18/2016 FINDINGS: Findings consistent with pulmonary edema. Permanent bipolar cardiac pacer/fibrillator. Diaphragms are smooth. Very slight plantar right lateral gastric angle. IMPRESSION: Pulmonary edema Electronically signed by: Sen Magallon M.D. 12/19/2016 4:57 PM Dictated Date/Time: 12/19/2016 4:56 PM . EKG EKG performed at 16:10 reviewed and demonstrated atrial-sensed ventricular- paced rhythm at 109/minute. . Impression Assessment and Plan ACUTE + CHRONIC HYPOXIC + HYPERCAPNIC RESPIRATORY FAILURE Oxygen saturation 63% on room air when EMS arrived CO2 elevated on venous blood gas. Respiratory failure probably secondary to combination of sleep apnea, obesity hypoventilation syndrome, superimposed CHF/pulmonary edema. BiPAP applied in ED. ALTERED MENTAL STATUS Probable encephalopathy secondary to respiratory failure. Follow neurologic status. LEUKOCYTOSIS / POSSIBLE SEPSIS Afebrile. WBC 18,890. Serum lactate 2.4. Hemodynamically stable. No apparent infiltrates on chest x-ray, but may be difficult to appreciate with overlying pulmonary edema. UA shows leukocyte esterase, wbc's, bacteria. Blood culture and urine culture ordered in ED and broad spectrum antibiotic coverage with piperacillin/tazobactam initiated. No fluid resuscitation because of (1) hemodynamic stability and (2) pulmonary edema. Check procalcitonin and repeat lactate. CHF / PULMONARY EDEMA. Chest x-ray shows pulmonary edema and BNP elevated. Followed by Dr. Gayle in clinic. Acute on chronic left ventricular systolic heart failure. Echocardiogram in the past demonstrated LVEF of 20-25%. Underlying ischemic heart disease. No need to repeat echocardiogram at this time since it will not alter management. IV furosemide administered in ED. Continue carvedilol, digoxin. No CRISTIN or ARB due to renal insufficiency. Follow weights, exam, labs, etc. CORONARY ARTERY DISEASE Followed by Dr. Gayle. Status post PCI. No reported chest pain. Serum troponin negative. Topical NTP while NPO. Resume aspirin, carvedilol, digoxin, apixaban when able to resume oral meds. ATRIAL FIBRILLATION Currently in paced rhythm. Continue carvedilol, amiodarone, digoxin, apixaban. CKD III-IV Serum creatinine 1.6. Follow closely with intravenous diuretic therapy. DM TYPE II Hold repaglinide. Check Hgb A1C. Lantus / NovoLog per protocol. DYSLIPIDEMIA Continue simvastatin. LOWER EXTREMITY VENOUS STASIS ULCERS Chronic. Consult Wound Care Nursing. VTE PROPHYLAXIS Continue apixaban. Ambulate as able. RESUSCITATION STATUS DNR per advanced directives. DISPOSITION Admit to Telemetry Unit. Expected return to House of Care. Internal Medicine follow-up with Dr. Lola Jean. . Advanced Directives Existing Living Will: Yes Existing Power of Sack Sewer: Yes VTE Prophylaxis VTE Risk Assessment Done? Y/N: Yes Risk Level: Moderate Given or contraindicated: Other Anticoagulation (apixaban)
[2016-12-19] MEDS ORDERED: GLUCOSE 40% GEL 15 GM TUBE PO PRN (21:45)
[2016-12-19] MEDS ORDERED: GLUCOSE 10 TABS/TUBE PO PRN (21:45)
[2016-12-19] MEDS ORDERED: PIPERACILL/TAZOBAC CONSULT ACTIVE PRN (21:45)
[2016-12-19] MEDS ORDERED: DEXTROSE 50% 50 ML SYR IV PRN (21:45)
[2016-12-19] MEDS ORDERED: GLUCAGON FOR INJ 1 MG VIAL SQ PRN (21:45)
[2016-12-19] MEDS: INSULIN GLARGINE SOLOSTAR 100 UNITS/ML 3 ML PEN SC SCH (22:13)
[2016-12-19] MEDS: INSULIN ASPART 100 UNITS/ML 3 ML PEN SC SCH (22:14)
[2016-12-19] MEDS: HEPARIN SOD 5000 UNIT/0.5 ML CARP SQ SCH (22:15)
[2016-12-19 23:24] VITALS: BP 135/74; PULSE 111; TEMP 36.7
[2016-12-19 23:34] VITALS: PULSE 113; O2SAT 96
[2016-12-19] MEDS: PIPERACILL/TAZOBAC IV 4.5 GM in DEXTROSE 5% 100ML 100 ML IV SCH (23:53)
[2016-12-19] MEDS: METOPROLOL TARTRATE 1 MG/ML VIAL IV. SCH (23:53)
[2016-12-19] MEDS: NITROGLYCERIN OINT 2% 1GM PACKET EXT SCH (23:53)
[2016-12-20] VITALS (15 sets, daily range): BP systolic 91–116; BP diastolic 54–73; PULSE 95–114; TEMP 36.5–37.3; O2SAT 92–97
[2016-12-20] MEDS: NITROGLYCERIN OINT 2% 1GM PACKET EXT SCH ×2 (05:50→12:00)
[2016-12-20] MEDS: METOPROLOL TARTRATE 1 MG/ML VIAL IV. SCH (05:51)
[2016-12-20] MEDS: INSULIN ASPART 100 UNITS/ML 3 ML PEN SC SCH ×4 (07:00→21:30)
--- NOTE | 2016-12-20 07:29 | DIAGNOSTIC IMAGING REPORT ---
SINGLE VIEW CHEST CLINICAL HISTORY: CHF. FINDINGS: An AP, portable, upright chest radiograph is compared to study dated 12/19/2016. The examination is degraded by portable technique and patient rotation. A 3-lead cardiac AICD is unchanged in position and partially obscures the left mid chest. The heart is enlarged and there is atherosclerotic calcification of the thoracic aorta. There is pulmonary vascular congestion with evidence of mild interstitial edema. This is modestly improved from yesterday. Trace pleural effusions are noted with bibasilar airspace opacities. There is no pneumothorax. The skeletal structures are osteopenic. Degenerative change is seen throughout the thoracic spine. There are healed left-sided rib fractures. IMPRESSION: 1. Cardiomegaly and AICD. There is evidence of congestive failure and mild interstitial edema. This has modestly improved from yesterday. Trace pleural effusions with bibasilar airspace opacities. This likely represents atelectasis. Clinical correlation will be required.. Electronically signed by: Tae Bradshaw M.D. 12/20/2016 7:28 AM Dictated Date/Time: 12/20/2016 7:26 AM
[2016-12-20] MEDS: PIPERACILL/TAZOBAC IV 4.5 GM in DEXTROSE 5% 100ML 100 ML IV SCH ×2 (08:11→16:27)
[2016-12-20 08:23] LABS: ESTIMATED AVERAGE GLUCOSE 143 mg/dl; HA1C FLAG Normal (Normal)
[2016-12-20 08:45] LABS: BUN/CREATININE RATIO 20.8 (10-20); CALCIUM 8.8 mg/dl (8.5-10.1); CREATININE 1.8 mg/dl (0.60-1.20); MAGNESIUM 2.6 mg/dl (1.8-2.4); POTASSIUM 4.5 mmol/L (3.5-5.1)
[2016-12-20 09:11] LABS: HEMATOCRIT 32.8 % (37-47); MEAN CELL VOLUME 94.5 fL (80-100); MEAN CORPUSCULAR HEMOGLOBIN 27.1 pg (25-34); MEAN CORPUSCULAR HGB CONC 28.7 g/dl (32-36); MEAN PLATELET VOLUME 8.7 fL (7.4-10.4); PLATELET COUNT 179 K/uL (130-400); RED BLOOD COUNT 3.47 M/uL (4.2-5.4); WHITE BLOOD COUNT 14.85 K/uL (4.8-10.8)
[2016-12-20] MEDS: AMIODARONE 200 MG TAB PO SCH (09:23)
[2016-12-20] MEDS: ASPIRIN 81 MG ECTAB PO SCH (09:23)
[2016-12-20] MEDS: APIXABAN 2.5 MG TAB PO SCH ×2 (09:23→20:11)
[2016-12-20] MEDS: GABAPENTIN 100 MG CAP PO SCH ×3 (09:23→20:11)
[2016-12-20] MEDS: HEPARIN SOD 5000 UNIT/0.5 ML CARP SQ SCH (09:26)
[2016-12-20] MEDS: INSULIN GLARGINE SOLOSTAR 100 UNITS/ML 3 ML PEN SC SCH ×2 (09:26→22:45)
[2016-12-20] MEDS: CARVEDILOL 12.5 MG TAB PO SCH ×2 (10:33→20:11)
[2016-12-20] MEDS: SIMVASTATIN 20 MG TAB PO SCH (20:11)
--- NOTE | 2016-12-20 22:24 | Progress Note ---
Medicine Progress Note Date & Time of Visit: Dec 20, 2016 at 13:00 . Subjective More alert this morning. No fever. Occasional cough. No chest pain. No nausea or vomiting. No diarrhea. Still has Veliz catheter. . Objective Last 8 Hrs Date Time Temp Pulse Resp B/P (MAP) Pulse Ox O2 Delivery O2 Flow Rate FiO2 12/20/16 20:00 94 Nasal Cannula 1.5 12/20/16 19:13 36.7 109 21 100/68 (79) 96 Nasal Cannula 1.5 12/20/16 16:00 96 Nasal Cannula 2.0 12/20/16 15:12 36.9 109 20 99/63 (75) 95 Nasal Cannula 1.5 Physical Exam: General- no acute distress Neck- + JVD Lungs- bibasilar rales, few scattered rhonchi, diffuse wheezing Heart- RRR, no gallop appreciated Abdomen- obese, soft, nontender Extremities- 3+ pretibial edema; legs bandaged below knees Neuro- somnolent, arousable . Laboratory Results: Last 24 Hours Test 12/20/16 06:56 12/20/16 07:54 12/20/16 13:15 12/20/16 16:14 Bedside Glucose 177 mg/dl 145 mg/dl 170 mg/dl White Blood Count 14.85 K/uL Red Blood Count 3.47 M/uL Hemoglobin 9.4 g/dL Hematocrit 32.8 % Mean Corpuscular Volume 94.5 fL Mean Corpuscular Hemoglobin 27.1 pg Mean Corpuscular Hemoglobin Concent 28.7 g/dl RDW Standard Deviation 70.9 fL RDW Coefficient of Variation 20.5 % Platelet Count 179 K/uL Mean Platelet Volume 8.7 fL Sodium Level 139 mmol/L Potassium Level 4.5 mmol/L Chloride Level 100 mmol/L Carbon Dioxide Level 34 mmol/L Anion Gap 5.0 mmol/L Blood Urea Nitrogen 38 mg/dl Creatinine 1.80 mg/dl Est Creatinine Clear Calc Drug Dose 33.9 ml/min Estimated GFR () 31.8 Estimated GFR (Non- 27.4 BUN/Creatinine Ratio 20.8 Random Glucose 141 mg/dl Estimated Average Glucose 143 mg/dl Hemoglobin A1c 6.6 % Lactic Acid Level 1.7 mmol/L Calcium Level 8.8 mg/dl Magnesium Level 2.6 mg/dl Chemistry Specimen Hemolysis Test 12/20/16 20:47 Bedside Glucose 163 mg/dl Assessment & Plan ACUTE + CHRONIC HYPOXIC + HYPERCAPNIC RESPIRATORY FAILURE Oxygen saturation 63% on room air when EMS arrived. CO2 elevated on venous blood gas. Respiratory failure probably secondary to combination of sleep apnea, obesity hypoventilation syndrome, superimposed CHF/pulmonary edema. BiPAP applied in ED. Continue BiPAP as needed. ALTERED MENTAL STATUS Probable encephalopathy secondary to respiratory failure. Somewhat improved. Follow neurologic status. SEPSIS WBC 18,890 at time of admission. No fever in ED, but tachycardic and tachypnea. Met criteria for sepsis per 2001 definition and current CMS guidelines. Serum lactate 2.4. Hemodynamically stable. No apparent infiltrates on chest x-ray, but may be difficult to appreciate with overlying pulmonary edema. UA shows leukocyte esterase, wbc's, bacteria. Blood culture and urine culture ordered in ED and broad spectrum antibiotic coverage with piperacillin/tazobactam initiated. Did not receive fluid resuscitation because of (1) hemodynamic stability and (2 ) pulmonary edema. Repeat lactate 2.3 last evening and 1.7 today. Pro-calcitonin 7.21. CHF / PULMONARY EDEMA. Chest x-ray showed pulmonary edema and BNP elevated. Echocardiogram in the past demonstrated LVEF of 20-25%. Underlying ischemic heart disease. Acute on chronic left ventricular systolic heart failure. No need to repeat echocardiogram at this time since it will not alter management. IV furosemide as needed. Continue carvedilol, digoxin. No CRISTIN or ARB due to renal insufficiency. Follow weights, exam, labs, etc. CORONARY ARTERY DISEASE Status post PCI. No reported chest pain. Serum troponin negative. Continue aspirin, carvedilol. ATRIAL FIBRILLATION Currently in paced rhythm. Continue carvedilol, amiodarone, digoxin, apixaban. CKD III-IV Serum creatinine 1.6 at time of admission. Creatinine this morning = 1.8. Follow closely with intravenous diuretic therapy. DM TYPE II Well-controlled. Hold repaglinide. Hemoglobin A1c = 6.6. Fasting blood sugar this morning = 177. Continue Lantus / NovoLog per protocol. DYSLIPIDEMIA Continue simvastatin. LOWER EXTREMITY VENOUS STASIS ULCERS Chronic. Wound Care Nursing consulted. VTE PROPHYLAXIS Continue apixaban. Ambulate as able. RESUSCITATION STATUS DNR per advanced directives. DISPOSITION Expected return to [place] [facility]. Internal Medicine follow-up with Dr. Lola Jean. . Current Inpatient Medications: Current Inpatient Medications Medications (Trade) Dose Ordered Sig/Jose Route Start Time Stop Time Status Last Admin Dose Admin Acetaminophen (Tylenol Tab) 650 mg Q4H PRN PO 12/19/16 18:00 01/18/17 17:59 Piperacillin Sod/ Tazobactam Sod 4.5 gm/Dextrose 120 ml @ 30 mls/hr Q8H IV 12/20/16 00:00 12/21/16 17:59 12/20/16 16:27 30 MLS/HR Insulin Glargine (Lantus Solostar Pen) 10 unit BID SC 12/19/16 21:00 01/18/17 20:59 12/20/16 09:26 10 UNIT Insulin Aspart (novoLOG ASPART) SLIDING SCALE G... ACHS SC 12/19/16 21:00 01/18/17 20:59 12/19/16 22:14 3 UNITS Piperacillin Sod/ Tazobactam Sod (Consult) 1 ea UD PRN N/A 12/19/16 21:45 12/26/16 21:44 Glucose (Glucose 40% Gel) 15-30 GRAMS 15 GRAMS... UD PRN PO 12/19/16 21:45 01/18/17 21:44 Glucose (Glucose Chew Tab) 4-8 Tablets 4 Tabl... UD PRN PO 12/19/16 21:45 01/18/17 21:44 Dextrose (Dextrose 50% 50ML Syringe) 25-50ML OF 50% DW IV FOR... UD PRN IV 12/19/16 21:45 01/18/17 21:44 Glucagon (Glucagon Inj) 1 mg UD PRN SQ 12/19/16 21:45 01/18/17 21:44 Amiodarone HCl (Cordarone Tab) 200 mg DAILY PO 12/20/16 09:00 01/19/17 08:59 12/20/16 09:23 200 MG Aspirin (Ecotrin Tab) 81 mg QAM PO 12/20/16 09:00 01/19/17 08:59 12/20/16 09:23 81 MG Carvedilol (Coreg Tab) 12.5 mg BID PO 12/20/16 09:00 01/19/17 08:59 12/20/16 20:11 12.5 MG Digoxin (Lanoxin Tab) 0.125 mg Q2D@1600 PO 12/21/16 16:00 01/20/17 15:59 Gabapentin (Neurontin Cap) 100 mg TID PO 12/20/16 09:00 01/19/17 08:59 12/20/16 20:11 100 MG Simvastatin (Zocor Tab) 20 mg QPM PO 12/20/16 21:00 01/19/17 20:59 12/20/16 20:11 20 MG Apixaban (Eliquis Tab) 5 mg BID PO 12/20/16 09:00 01/19/17 08:59 12/20/16 20:11 5 MG
[2016-12-21] VITALS (9 sets, daily range): BP systolic 87–115; BP diastolic 54–69; PULSE 66–99; TEMP 36.4–37; O2SAT 95–100; BMI 40.2
[2016-12-21] MEDS ORDERED: FUROSEMIDE INJ 40 MG in SYRINGE 0 ML IV ONE (01:30)
[2016-12-21] MEDS: PIPERACILL/TAZOBAC IV 4.5 GM in DEXTROSE 5% 100ML 100 ML IV SCH ×3 (07:37)
[2016-12-21 07:38] LABS: HEMATOCRIT 31.9 % (37-47); MEAN CELL VOLUME 94.7 fL (80-100); MEAN CORPUSCULAR HEMOGLOBIN 26.4 pg (25-34); MEAN CORPUSCULAR HGB CONC 27.9 g/dl (32-36); PLATELET COUNT 159 K/uL (130-400); RED BLOOD COUNT 3.37 M/uL (4.2-5.4)
[2016-12-21] MEDS: INSULIN ASPART 100 UNITS/ML 3 ML PEN SC SCH ×5 (08:19→21:00)
[2016-12-21] MEDS: GABAPENTIN 100 MG CAP PO SCH ×3 (08:23→21:19)
[2016-12-21] MEDS: AMIODARONE 200 MG TAB PO SCH (08:25)
[2016-12-21] MEDS: INSULIN GLARGINE SOLOSTAR 100 UNITS/ML 3 ML PEN SC SCH ×2 (08:25→21:22)
[2016-12-21] MEDS: ASPIRIN 81 MG ECTAB PO SCH (08:26)
[2016-12-21] MEDS: APIXABAN 2.5 MG TAB PO SCH ×2 (08:26→21:19)
[2016-12-21] MEDS: CARVEDILOL 12.5 MG TAB PO SCH ×2 (08:26→21:19)
--- NOTE | 2016-12-21 08:32 | DIAGNOSTIC IMAGING REPORT ---
SINGLE VIEW CHEST CLINICAL HISTORY: Respiratory failure. Pulmonary edema. FINDINGS: An AP, portable, upright chest radiograph is compared to study dated 12/20/2016. The examination is degraded by portable technique and patient rotation. A 3-lead cardiac AICD is unchanged in position and partially obscures the left mid chest. The heart is enlarged and there is atherosclerotic calcification of the thoracic aorta. There is pulmonary vascular congestion with evidence of interstitial edema. This is has not significant changed from yesterday. Small pleural effusions are noted with bibasilar airspace opacities. There is no pneumothorax. The skeletal structures are osteopenic. Degenerative change is seen throughout the thoracic spine. There are healed left-sided rib fractures. IMPRESSION: 1. Cardiomegaly and AICD. There is evidence of congestive failure and interstitial edema, not significantly changed from yesterday. 2. Small pleural effusions with bibasilar airspace opacities. This is also unchanged. Electronically signed by: Tae Bradshaw M.D. 12/21/2016 8:30 AM Dictated Date/Time: 12/21/2016 8:29 AM
--- NOTE | 2016-12-21 10:11 | Clinical Documentation Query ---
CLINICAL DOCUMENTATION QUERY Dr. HUDSON, In your clinical opinion is this patient being managed for: ( x ) Urinary tract infection ( ) Other explanation of clinical findings (Please Explain) ( ) Unable to determine (Please Define) ( ) Need to Discuss ( ) Not Agree The medical record reflects the following clinical findings, treatment, and risk factors. Clinical Indicators: 71 yo female presenting with acute respiratory failure, sepsis. UA cx showed E coli Treatment: IV zosyn Risk Factors: gender, DM, CKD Please clarify and document your clinical opinion in the progress notes and discharge summary. Terms such as "probable", "suspected", "likely", "questionable", "possible", or "still to be ruled out" are acceptable. IF IN AGREEMENT, YOU MUST DOCUMENT ABOVE DIAGNOSTIC STATEMENT IN DAILY PROGRESS NOTES AND DISCHARGE SUMMARY. This document is not part of the patient's record. Thank You, Miley Steven RN [phone]
[2016-12-21 13:28] LABS: BUN/CREATININE RATIO 18.9 (10-20); CALCIUM 8.4 mg/dl (8.5-10.1); CREATININE 1.8 mg/dl (0.60-1.20); POTASSIUM 3.8 mmol/L (3.5-5.1)
[2016-12-21] MEDS: DIGOXIN 0.125 MG TAB PO SCH (17:27)
[2016-12-21] MEDS: SIMVASTATIN 20 MG TAB PO SCH (21:19)
[2016-12-21] MEDS: CEFTRIAXONE SOD INJ 2,000 MG in DEXTROSE 5% 50ML 50 ML IV SCH (21:33)
[2016-12-21] MEDS ORDERED: POLYETHYLENE (MIRALAX) 17 GM PACK PO PRN (22:00)
[2016-12-21] MEDS ORDERED: IMDSR30 PO (22:04)
--- NOTE | 2016-12-21 22:09 | Progress Note ---
Medicine Progress Note Date & Time of Visit: Dec 21, 2016 at 11:00 . Subjective More alert. No fever. Occasional nonproductive cough. Less short of breath. No chest pain. No nausea, vomiting, diarrhea. Still has Veliz catheter. . Objective Last 8 Hrs Date Time Temp Pulse Resp B/P (MAP) Pulse Ox O2 Delivery O2 Flow Rate FiO2 12/21/16 08:20 95/63 (74) 12/21/16 08:00 Nasal Cannula 1.5 12/21/16 07:27 36.4 74 20 98/61 (73) 99 Nasal Cannula 2.0 12/21/16 04:17 36.4 90 18 110/65 (80) 97 Nasal Cannula 1.5 12/21/16 04:15 Nasal Cannula 1.5 Physical Exam: General- no acute distress Neck- + JVD Lungs- bibasilar rales, diffuse mild wheezing Heart- RRR, no gallop appreciated Abdomen- obese, soft, nontender Extremities- 3+ pretibial edema; legs bandaged below knees Neuro- more alert, conversant . Laboratory Results: Last 24 Hours Test 12/20/16 13:15 12/20/16 16:14 12/20/16 20:47 12/21/16 06:43 Bedside Glucose 145 mg/dl 170 mg/dl 163 mg/dl 120 mg/dl Test 12/21/16 07:07 White Blood Count 8.50 K/uL Red Blood Count 3.37 M/uL Hemoglobin 8.9 g/dL Hematocrit 31.9 % Mean Corpuscular Volume 94.7 fL Mean Corpuscular Hemoglobin 26.4 pg Mean Corpuscular Hemoglobin Concent 27.9 g/dl RDW Standard Deviation 70.0 fL RDW Coefficient of Variation 20.1 % Platelet Count 159 K/uL Mean Platelet Volume 8.0 fL Assessment & Plan ACUTE + CHRONIC HYPOXIC + HYPERCAPNIC RESPIRATORY FAILURE Oxygen saturation 63% on room air when EMS arrived. CO2 elevated on venous blood gas. Respiratory failure probably secondary to combination of sleep apnea, obesity hypoventilation syndrome, superimposed CHF/pulmonary edema. BiPAP applied in ED. Continue BiPAP as needed. ALTERED MENTAL STATUS Probable encephalopathy secondary to respiratory failure. Improved. SEPSIS / UTI WBC 18,890 at time of admission. No fever in ED, but tachycardic and tachypnea. Met criteria for sepsis per 2001 definition and current CMS guidelines. Serum lactate 2.4. Hemodynamically stable. No apparent infiltrates on chest x-ray, but may be difficult to appreciate with overlying pulmonary edema. UA showed leukocyte esterase, wbc's, bacteria. Blood culture and urine culture ordered in ED and broad spectrum antibiotic coverage with piperacillin/tazobactam initiated. Did not receive fluid resuscitation because of (1) hemodynamic stability and (2 ) pulmonary edema. Repeat lactates 2.3, 1.7. Pro-calcitonin 7.21. Urine culture growing Escherichia coli, pansensitive. Change antibiotic therapy to ceftriaxone. CHF / PULMONARY EDEMA. Chest x-ray showed pulmonary edema and BNP elevated. Echocardiogram in the past demonstrated LVEF of 20-25%. Underlying ischemic heart disease. Acute on chronic left ventricular systolic heart failure. No need to repeat echocardiogram at this time since it will not alter management. IV furosemide as needed / tolerated. Continue carvedilol, digoxin. No CRISTIN or ARB due to renal insufficiency. Follow weights, exam, labs, etc. CORONARY ARTERY DISEASE Status post PCI. No chest pain. Serum troponin negative. Continue aspirin, carvedilol. ATRIAL FIBRILLATION Currently in paced rhythm. Continue carvedilol, amiodarone, digoxin, apixaban. CKD III-IV Serum creatinine 1.6 at time of admission. Creatinine this morning stable @ 1.8. Follow closely with intravenous diuretic therapy. DM TYPE II Well-controlled. Hold repaglinide. Hemoglobin A1c = 6.6. Fasting blood sugar this morning = 129. Continue Lantus / NovoLog per protocol. DYSLIPIDEMIA Continue simvastatin. LOWER EXTREMITY VENOUS STASIS ULCERS Chronic. Wound Care Nursing consulted. VTE PROPHYLAXIS Continue apixaban. Ambulate as able. RESUSCITATION STATUS DNR per advanced directives. DISPOSITION Expected return to [facility]. Internal Medicine follow-up with Dr. Lola Jean. Cardiology follow-up with Dr. Gayle. . Current Inpatient Medications: Current Inpatient Medications Medications (Trade) Dose Ordered Sig/Jose Route Start Time Stop Time Status Last Admin Dose Admin Acetaminophen (Tylenol Tab) 650 mg Q4H PRN PO 12/19/16 18:00 01/18/17 17:59 Piperacillin Sod/ Tazobactam Sod 4.5 gm/Dextrose 120 ml @ 30 mls/hr Q8H IV 12/20/16 00:00 12/30/16 00:00 12/21/16 07:37 30 MLS/HR Insulin Glargine (Lantus Solostar Pen) 10 unit BID SC 12/19/16 21:00 01/18/17 20:59 12/21/16 08:25 10 UNIT Insulin Aspart (novoLOG ASPART) SLIDING SCALE G... ACHS SC 12/19/16 21:00 01/18/17 20:59 12/19/16 22:14 3 UNITS Piperacillin Sod/ Tazobactam Sod (Consult) 1 ea UD PRN N/A 12/19/16 21:45 12/26/16 21:44 Glucose (Glucose 40% Gel) 15-30 GRAMS 15 GRAMS... UD PRN PO 12/19/16 21:45 01/18/17 21:44 Glucose (Glucose Chew Tab) 4-8 Tablets 4 Tabl... UD PRN PO 12/19/16 21:45 01/18/17 21:44 Dextrose (Dextrose 50% 50ML Syringe) 25-50ML OF 50% DW IV FOR... UD PRN IV 12/19/16 21:45 01/18/17 21:44 Glucagon (Glucagon Inj) 1 mg UD PRN SQ 12/19/16 21:45 01/18/17 21:44 Amiodarone HCl (Cordarone Tab) 200 mg DAILY PO 12/20/16 09:00 01/19/17 08:59 12/21/16 08:25 200 MG Aspirin (Ecotrin Tab) 81 mg QAM PO 12/20/16 09:00 01/19/17 08:59 12/21/16 08:26 81 MG Carvedilol (Coreg Tab) 12.5 mg BID PO 12/20/16 09:00 01/19/17 08:59 12/20/16 20:11 12.5 MG Digoxin (Lanoxin Tab) 0.125 mg Q2D@1600 PO 12/21/16 16:00 01/20/17 15:59 Gabapentin (Neurontin Cap) 100 mg TID PO 12/20/16 09:00 01/19/17 08:59 12/21/16 08:23 100 MG Simvastatin (Zocor Tab) 20 mg QPM PO 12/20/16 21:00 01/19/17 20:59 6/26/17 20:11 20 MG Apixaban (Eliquis Tab) 5 mg BID PO 12/20/16 09:00 01/19/17 08:59 12/21/16 08:26 5 MG
[2016-12-21] MEDS: DOCUSATE SODIUM/SENNA 50/8.6MG TAB PO SCH (22:51)
[2016-12-22] VITALS (10 sets, daily range): BP systolic 95–112; BP diastolic 59–74; PULSE 66–96; TEMP 36.4–36.8; O2SAT 97–100; Ht 165.1 cm; Wt 107.2 kg
[2016-12-22 07:35] LABS: MEAN CELL VOLUME 93.7 fL (80-100); MEAN CORPUSCULAR HEMOGLOBIN 28.1 pg (25-34); PLATELET COUNT 157 K/uL (130-400); RED BLOOD COUNT 3.31 M/uL (4.2-5.4); WHITE BLOOD COUNT 6.46 K/uL (4.8-10.8)
[2016-12-22 08:07] LABS: BUN/CREATININE RATIO 23.7 (10-20); CALCIUM 8.7 mg/dl (8.5-10.1); CREATININE 1.5 mg/dl (0.60-1.20); MAGNESIUM 2.7 mg/dl (1.8-2.4); POTASSIUM 3.9 mmol/L (3.5-5.1)
[2016-12-22] MEDS: INSULIN ASPART 100 UNITS/ML 3 ML PEN SC SCH ×4 (08:12→21:30)
[2016-12-22 08:17] LABS: THYROID STIMULATING HORMONE 6.33 uIu/ml (0.300-4.500)
[2016-12-22] MEDS: DOCUSATE SODIUM/SENNA 50/8.6MG TAB PO SCH ×2 (08:17→21:16)
[2016-12-22] MEDS: GABAPENTIN 100 MG CAP PO SCH ×3 (08:21→21:14)
[2016-12-22] MEDS: ASPIRIN 81 MG ECTAB PO SCH (08:21)
[2016-12-22] MEDS: ISOSORBIDE MONONITRATE 30 MG TABCR PO SCH (08:21)
[2016-12-22] MEDS: APIXABAN 2.5 MG TAB PO SCH ×2 (08:22→21:15)
[2016-12-22] MEDS: CARVEDILOL 12.5 MG TAB PO SCH ×2 (08:22→21:20)
[2016-12-22] MEDS: AMIODARONE 200 MG TAB PO SCH (08:22)
[2016-12-22] MEDS: INSULIN GLARGINE SOLOSTAR 100 UNITS/ML 3 ML PEN SC SCH ×2 (08:23→21:31)
[2016-12-22] MEDS ORDERED: ISOSORBIDE DINITRATE 30 MG PO SCH (09:00)
--- NOTE | 2016-12-22 15:16 | Progress Note ---
Medicine Progress Note Date & Time of Visit: Dec 22, 2016 at ~ 14:00 . Subjective Doing better. Out of bed in chair. No fever. No chest pain. Respiratory status improved. Rare cough. No nausea, vomiting, diarrhea. Still has Veliz catheter. . Objective Last 8 Hrs Date Time Temp Pulse Resp B/P (MAP) Pulse Ox O2 Delivery O2 Flow Rate FiO2 12/22/16 12:00 Nasal Cannula 2.0 12/22/16 11:12 36.8 96 20 103/64 (77) 97 Nasal Cannula 2.0 12/22/16 08:26 98/59 (72) 95/65 (75) 12/22/16 08:00 Nasal Cannula 2.0 12/22/16 07:24 36.6 85 16 100/66 (77) 100 Nasal Cannula 2.0 Physical Exam: General- sitting in chair, no acute distress Neck- + JVD Lungs- few bibasilar rales, diffuse mild wheezing Heart- RRR Abdomen- obese, soft, nontender Extremities- 3+ pretibial edema; legs bandaged Neuro- alert . Laboratory Results: Last 24 Hours Test 12/21/16 16:41 12/21/16 20:56 12/22/16 06:30 12/22/16 07:13 Bedside Glucose 156 mg/dl 113 mg/dl 106 mg/dl White Blood Count 6.46 K/uL Red Blood Count 3.31 M/uL Hemoglobin 9.3 g/dL Hematocrit 31.0 % Mean Corpuscular Volume 93.7 fL Mean Corpuscular Hemoglobin 28.1 pg Mean Corpuscular Hemoglobin Concent 30.0 g/dl RDW Standard Deviation 67.2 fL RDW Coefficient of Variation 19.6 % Platelet Count 157 K/uL Mean Platelet Volume 8.0 fL Sodium Level 136 mmol/L Potassium Level 3.9 mmol/L Chloride Level 100 mmol/L Carbon Dioxide Level 32 mmol/L Anion Gap 4.0 mmol/L Blood Urea Nitrogen 36 mg/dl Creatinine 1.50 mg/dl Est Creatinine Clear Calc Drug Dose 40.6 ml/min Estimated GFR () 39.6 Estimated GFR (Non- 34.2 BUN/Creatinine Ratio 23.7 Random Glucose 94 mg/dl Calcium Level 8.7 mg/dl Magnesium Level 2.7 mg/dl Thyroid Stimulating Hormone (TSH) 6.330 uIu/ml Test 12/22/16 10:53 Bedside Glucose 151 mg/dl Assessment & Plan ACUTE + CHRONIC HYPOXIC + HYPERCAPNIC RESPIRATORY FAILURE Oxygen saturation 63% on room air when EMS arrived. CO2 elevated on venous blood gas. Respiratory failure probably secondary to combination of sleep apnea, obesity hypoventilation syndrome, superimposed CHF/pulmonary edema. BiPAP applied in ED and continued for ventilatory support. Respiratory status improved. ALTERED MENTAL STATUS Probable encephalopathy secondary to respiratory failure. Improved. SEPSIS / UTI WBC 18,890 at time of admission. No fever in ED, but tachycardic and tachypnea. Met criteria for sepsis per 2001 definition and current CMS guidelines. Serum lactate 2.4. Hemodynamically stable. No apparent infiltrates on chest x-ray. UA showed leukocyte esterase, wbc's, bacteria. Blood culture and urine culture ordered in ED and broad spectrum antibiotic coverage with piperacillin/tazobactam initiated. Did not receive fluid resuscitation because of (1) hemodynamic stability and (2 ) pulmonary edema. Repeat lactates 2.3, 1.7. Pro-calcitonin 7.21. Urine culture grew Escherichia coli, pansensitive. Changed antibiotic therapy to ceftriaxone. CHF / PULMONARY EDEMA. Chest x-ray showed pulmonary edema and BNP elevated. Echocardiogram in the past demonstrated LVEF of 20-25%. Underlying ischemic heart disease. Acute on chronic left ventricular systolic heart failure. No need to repeat echocardiogram at this time since it will not alter management. IV furosemide as needed / tolerated. Continue carvedilol, digoxin. No CRISTIN or ARB due to renal insufficiency. Follow weights, exam, labs, etc. CORONARY ARTERY DISEASE Status post PCI. No chest pain. Serum troponin negative. Continue aspirin, carvedilol. ATRIAL FIBRILLATION Currently in paced rhythm. Continue carvedilol, amiodarone, digoxin, apixaban. CKD III-IV Serum creatinine 1.6 at time of admission. Creatinine this morning stable @ 1.5. Follow closely with intravenous diuretic therapy. DM TYPE II Well-controlled. Hold repaglinide. Hemoglobin A1c = 6.6. Fasting blood sugar this morning = 106. Continue Lantus / NovoLog per protocol. DYSLIPIDEMIA Continue simvastatin. LOWER EXTREMITY VENOUS STASIS ULCERS Chronic. Wound Care Nursing consulted. VTE PROPHYLAXIS Continue apixaban. Ambulate as able. RESUSCITATION STATUS DNR per advanced directives. DISPOSITION Expected return to [facility]. Internal Medicine follow-up with Dr. Lola Jean. Cardiology follow-up with Dr. Gayle. . Current Inpatient Medications: Current Inpatient Medications Medications (Trade) Dose Ordered Sig/Jose Route Start Time Stop Time Status Last Admin Dose Admin Acetaminophen (Tylenol Tab) 650 mg Q4H PRN PO 12/19/16 18:00 01/18/17 17:59 Insulin Glargine (Lantus Solostar Pen) 10 unit BID SC 12/19/16 21:00 01/18/17 20:59 12/22/16 08:23 10 UNIT Insulin Aspart (novoLOG ASPART) SLIDING SCALE G... ACHS SC 12/19/16 21:00 01/18/17 20:59 12/22/16 12:00 4 UNITS Glucose (Glucose 40% Gel) 15-30 GRAMS 15 GRAMS... UD PRN PO 12/19/16 21:45 01/18/17 21:44 Glucose (Glucose Chew Tab) 4-8 Tablets 4 Tabl... UD PRN PO 12/19/16 21:45 01/18/17 21:44 Dextrose (Dextrose 50% 50ML Syringe) 25-50ML OF 50% DW IV FOR... UD PRN IV 12/19/16 21:45 01/18/17 21:44 Glucagon (Glucagon Inj) 1 mg UD PRN SQ 12/19/16 21:45 01/18/17 21:44 Amiodarone HCl (Cordarone Tab) 200 mg DAILY PO 12/20/16 09:00 01/19/17 08:59 12/22/16 08:22 200 MG Aspirin (Ecotrin Tab) 81 mg QAM PO 12/20/16 09:00 01/19/17 08:59 12/22/16 08:21 81 MG Carvedilol (Coreg Tab) 12.5 mg BID PO 12/20/16 09:00 01/19/17 08:59 12/21/16 21:19 12.5 MG Digoxin (Lanoxin Tab) 0.125 mg Q2D@1600 PO 12/21/16 16:00 01/20/17 15:59 12/21/16 17:27 0.125 MG Gabapentin (Neurontin Cap) 100 mg TID PO 12/20/16 09:00 01/19/17 08:59 12/22/16 13:32 100 MG Simvastatin (Zocor Tab) 20 mg QPM PO 12/20/16 21:00 01/19/17 20:59 12/21/16 21:19 20 MG Apixaban (Eliquis Tab) 5 mg BID PO 12/20/16 09:00 01/19/17 08:59 12/22/16 08:22 5 MG Ceftriaxone Sodium 2000 mg/ Dextrose 70 ml @ 100 mls/hr DAILY@2100 IV 12/21/16 21:00 12/26/16 20:59 12/21/16 21:33 100 MLS/HR Senna/Docusate Sodium (Senokot S Tab) 1 tab BID PO 12/22/16 09:00 01/21/17 08:59 12/22/16 08:17 1 TAB Polyethylene (Miralax Powder Packet) 17 gm DAILY PRN PO 12/21/16 22:00 01/20/17 21:59 Isosorbide Mononitrate (Imdur Ext Rel Tab) 30 mg DAILY PO 12/22/16 09:00 01/21/17 08:59
[2016-12-22] MEDS ORDERED: POTASSIUM CHLORIDE 20 MEQ TABCR PO ONE (19:00)
[2016-12-22] MEDS ORDERED: FUROSEMIDE INJ 40 MG in SYRINGE 0 ML IV ONE (19:00)
[2016-12-22] MEDS: SIMVASTATIN 20 MG TAB PO SCH (21:14)
[2016-12-22] MEDS: CEFTRIAXONE SOD INJ 2,000 MG in DEXTROSE 5% 50ML 50 ML IV SCH (22:16)
[2016-12-23] VITALS (7 sets, daily range): BP systolic 88–114; BP diastolic 60–68; PULSE 66–81; TEMP 36.3–36.7; O2SAT 98–99
[2016-12-23] MEDS: ACETAMINOPHEN 325 MG TAB PO PRN (04:05)
[2016-12-23 06:38] LABS: BUN/CREATININE RATIO 26.3 (10-20); CREATININE 1.5 mg/dl (0.60-1.20); POTASSIUM 3.9 mmol/L (3.5-5.1)
[2016-12-23 07:11] LABS: CALCIUM 9.3 mg/dl (8.5-10.1)
[2016-12-23] MEDS: ASPIRIN 81 MG ECTAB PO SCH (07:57)
[2016-12-23] MEDS: CARVEDILOL 12.5 MG TAB PO SCH ×2 (07:57→21:09)
[2016-12-23] MEDS: AMIODARONE 200 MG TAB PO SCH (07:57)
[2016-12-23] MEDS: GABAPENTIN 100 MG CAP PO SCH ×3 (07:57→21:10)
[2016-12-23] MEDS: APIXABAN 2.5 MG TAB PO SCH ×2 (07:58→21:10)
[2016-12-23] MEDS: ISOSORBIDE MONONITRATE 30 MG TABCR PO SCH (07:58)
[2016-12-23] MEDS: DOCUSATE SODIUM/SENNA 50/8.6MG TAB PO SCH ×2 (07:58→21:09)
[2016-12-23] MEDS: INSULIN ASPART 100 UNITS/ML 3 ML PEN SC SCH ×4 (08:00→21:00)
[2016-12-23] MEDS: INSULIN GLARGINE SOLOSTAR 100 UNITS/ML 3 ML PEN SC SCH ×2 (08:01→21:11)
--- NOTE | 2016-12-23 08:28 | DIAGNOSTIC IMAGING REPORT ---
CHEST 2 VIEWS ROUTINE CLINICAL HISTORY: f/u CHF, reps failure dyspnea COMPARISON STUDY: 12/21/2016 FINDINGS: Implantable cardiac pacemaker/fibrillator. Improved radiographic findings of congestive failure. Small right pleural effusion. No evidence pneumothorax. IMPRESSION: Congestive failure slightly improved from the prior study. Electronically signed by: Sen Magallon M.D. 12/23/2016 8:26 AM Dictated Date/Time: 12/23/2016 8:25 AM
[2016-12-23] MEDS: FUROSEMIDE INJ 40 MG in SYRINGE 0 ML IV SCH ×2 (09:22→15:38)
[2016-12-23] MEDS: POTASSIUM CHLORIDE 10 MEQ TABCR PO SCH ×3 (09:22→17:07)
[2016-12-23] MEDS: DIGOXIN 0.125 MG TAB PO SCH (15:43)
[2016-12-23] MEDS ORDERED: NURSING VERBAL MED ORDER ONE (16:15)
[2016-12-23] MEDS ORDERED: MICONAZOLE NITRATE POWDER 43 GM EXT PRN (16:30)
--- NOTE | 2016-12-23 20:02 | Progress Note ---
Medicine Progress Note Date & Time of Visit: Dec 23, 2016 at 10:00 . Subjective No fever. Respiratory status much better. Rare cough. No SOB at rest. No chest pain. No nausea, vomiting, diarrhea. Still has Soares. . Objective Last 8 Hrs Date Time Temp Pulse Resp B/P (MAP) Pulse Ox O2 Delivery O2 Flow Rate FiO2 12/23/16 08:00 Nasal Cannula 2.0 12/23/16 07:55 69 114/68 (83) 12/23/16 07:07 36.3 66 20 97/62 (74) 99 Nasal Cannula 1.5 Physical Exam: General- sitting in chair, no acute distress Neck- + JVD Lungs- diffuse mild wheezing Heart- RRR Abdomen- obese, soft, nontender Extremities- 2-3+ pretibial edema; legs bandaged Neuro- alert . Laboratory Results: Last 24 Hours Test 12/22/16 16:35 12/22/16 20:26 12/23/16 05:58 12/23/16 07:23 Bedside Glucose 142 mg/dl 211 mg/dl 112 mg/dl Sodium Level 139 mmol/L Potassium Level 3.9 mmol/L Chloride Level 102 mmol/L Carbon Dioxide Level 32 mmol/L Anion Gap 5.0 mmol/L Blood Urea Nitrogen 40 mg/dl Creatinine 1.50 mg/dl Est Creatinine Clear Calc Drug Dose 40.6 ml/min Estimated GFR () 39.6 Estimated GFR (Non- 34.2 BUN/Creatinine Ratio 26.3 Random Glucose 104 mg/dl Calcium Level 9.3 mg/dl Test 12/23/16 11:32 Bedside Glucose 183 mg/dl Assessment & Plan ACUTE + CHRONIC HYPOXIC + HYPERCAPNIC RESPIRATORY FAILURE Oxygen saturation 63% on room air when EMS arrived. CO2 elevated on venous blood gas. Respiratory failure probably secondary to combination of sleep apnea, obesity hypoventilation syndrome, superimposed CHF/pulmonary edema. BiPAP applied in ED and continued for ventilatory support. Respiratory status improved. ALTERED MENTAL STATUS Probable encephalopathy secondary to respiratory failure. Improved. SEPSIS / UTI WBC 18,890 at time of admission. No fever in ED, but tachycardic and tachypnea. Met criteria for sepsis per 2001 definition and current CMS guidelines. Serum lactate 2.4. Hemodynamically stable. No apparent infiltrates on chest x-ray. UA showed leukocyte esterase, wbc's, bacteria. Blood culture and urine culture ordered in ED and broad spectrum antibiotic coverage with piperacillin/tazobactam initiated. Did not receive fluid resuscitation because of (1) hemodynamic stability and (2 ) pulmonary edema. Repeat lactates 2.3, 1.7. Pro-calcitonin 7.21. Urine culture grew Escherichia coli, pansensitive. Changed antibiotic therapy to ceftriaxone. CHF / PULMONARY EDEMA. Chest x-ray showed pulmonary edema and BNP elevated. Echocardiogram in the past demonstrated LVEF of 20-25%. Underlying ischemic heart disease. Acute on chronic left ventricular systolic heart failure. No need to repeat echocardiogram at this time since it will not alter management. Chest x-ray today shows improvement. Continue IV furosemide. Continue carvedilol, digoxin. No CRISTIN or ARB due to renal insufficiency. Follow weights, exam, labs, etc. CORONARY ARTERY DISEASE Status post PCI. No chest pain. Serum troponin negative. Continue aspirin, carvedilol. ATRIAL FIBRILLATION Currently in paced rhythm. Continue carvedilol, amiodarone, digoxin, apixaban. CKD III-IV Serum creatinine 1.6 at time of admission. Creatinine this morning stable @ 1.5. Follow closely with intravenous diuretic therapy. DM TYPE II Well-controlled. Hold repaglinide. Hemoglobin A1c = 6.6. Fasting blood sugar this morning = 112. Continue Lantus / NovoLog per protocol. DYSLIPIDEMIA Continue simvastatin. LOWER EXTREMITY VENOUS STASIS ULCERS Chronic. Wound Care Nursing consulted. SOARES CATHETER DC. VTE PROPHYLAXIS Continue apixaban. Ambulate as able. RESUSCITATION STATUS DNR per advanced directives. DISPOSITION Expected return to [facility]. Internal Medicine follow-up with Dr. Lola Jean. Cardiology follow-up with Dr. Gayle. . Current Inpatient Medications: Current Inpatient Medications Medications (Trade) Dose Ordered Sig/Jose Route Start Time Stop Time Status Last Admin Dose Admin Acetaminophen (Tylenol Tab) 650 mg Q4H PRN PO 12/19/16 18:00 01/18/17 17:59 12/23/16 04:05 650 MG Insulin Glargine (Lantus Solostar Pen) 10 unit BID SC 12/19/16 21:00 01/18/17 20:59 12/23/16 08:01 10 UNIT Insulin Aspart (novoLOG ASPART) SLIDING SCALE G... ACHS NH 12/19/16 21:00 01/18/17 20:59 12/23/16 12:19 3 UNITS Glucose (Glucose 40% Gel) 15-30 GRAMS 15 GRAMS... UD PRN PO 12/19/16 21:45 01/18/17 21:44 Glucose (Glucose Chew Tab) 4-8 Tablets 4 Tabl... UD PRN PO 12/19/16 21:45 01/18/17 21:44 Dextrose (Dextrose 50% 50ML Syringe) 25-50ML OF 50% DW IV FOR... UD PRN IV 12/19/16 21:45 01/18/17 21:44 Glucagon (Glucagon Inj) 1 mg UD PRN SQ 12/19/16 21:45 01/18/17 21:44 Amiodarone HCl (Cordarone Tab) 200 mg DAILY PO 12/20/16 09:00 01/19/17 08:59 12/23/16 07:57 200 MG Aspirin (Ecotrin Tab) 81 mg QAM PO 12/20/16 09:00 01/19/17 08:59 12/23/16 07:57 81 MG Carvedilol (Coreg Tab) 12.5 mg BID PO 12/20/16 09:00 01/19/17 08:59 12/23/16 07:57 12.5 MG Digoxin (Lanoxin Tab) 0.125 mg Q2D@1600 PO 12/21/16 16:00 01/20/17 15:59 12/21/16 17:27 0.125 MG Gabapentin (Neurontin Cap) 100 mg TID PO 12/20/16 09:00 01/19/17 08:59 12/23/16 13:07 100 MG Simvastatin (Zocor Tab) 20 mg QPM PO 12/20/16 21:00 01/19/17 20:59 12/22/16 21:14 20 MG Apixaban (Eliquis Tab) 5 mg BID PO 12/20/16 09:00 01/19/17 08:59 12/23/16 07:58 5 MG Ceftriaxone Sodium 2000 mg/ Dextrose 70 ml @ 100 mls/hr DAILY@2100 IV 12/21/16 21:00 12/26/16 20:59 12/22/16 22:16 100 MLS/HR Senna/Docusate Sodium (Senokot S Tab) 1 tab BID PO 12/22/16 09:00 01/21/17 08:59 12/23/16 07:58 1 TAB Polyethylene (Miralax Powder Packet) 17 gm DAILY PRN PO 12/21/16 22:00 01/20/17 21:59 Isosorbide Mononitrate (Imdur Ext Rel Tab) 30 mg DAILY PO 12/22/16 09:00 01/21/17 08:59 12/23/16 07:58 30 MG Furosemide 40 mg/ Syringe 4 ml @ 4 mls/min BID@0900,1500 IV 12/23/16 09:00 01/22/17 08:59 12/23/16 09:22 4 MLS/MIN Potassium Chloride (Klor-Con M10) 10 meq TIDM PO 12/23/16 10:00 01/22/17 09:59 12/23/16 13:06 10 MEQ
[2016-12-23] MEDS: CEFTRIAXONE SOD INJ 2,000 MG in DEXTROSE 5% 50ML 50 ML IV SCH (21:08)
[2016-12-23] MEDS: SIMVASTATIN 20 MG TAB PO SCH (21:09)
[2016-12-24] VITALS: O2SAT 99
[2016-12-24] MEDS: ACETAMINOPHEN 325 MG TAB PO PRN (02:56)
[2016-12-24 06:34] LABS: BUN/CREATININE RATIO 24.9 (10-20); CALCIUM 9.3 mg/dl (8.5-10.1); CREATININE 1.6 mg/dl (0.60-1.20); POTASSIUM 4.3 mmol/L (3.5-5.1)
[2016-12-24 07:31] VITALS: BP 103/68; PULSE 67; TEMP 36.7; O2SAT 99
[2016-12-24] MEDS: DOCUSATE SODIUM/SENNA 50/8.6MG TAB PO SCH (08:00)
[2016-12-24] MEDS: POTASSIUM CHLORIDE 10 MEQ TABCR PO SCH ×2 (08:00→11:53)
[2016-12-24] MEDS: ASPIRIN 81 MG ECTAB PO SCH (08:00)
[2016-12-24] MEDS: ISOSORBIDE MONONITRATE 30 MG TABCR PO SCH (08:00)
[2016-12-24] MEDS: FUROSEMIDE 40 MG TAB PO SCH ×2 (08:00→15:00)
[2016-12-24] MEDS: GABAPENTIN 100 MG CAP PO SCH ×2 (08:01→14:12)
[2016-12-24] MEDS: APIXABAN 2.5 MG TAB PO SCH (08:01)
[2016-12-24] MEDS: AMIODARONE 200 MG TAB PO SCH (08:02)
[2016-12-24] MEDS: INSULIN ASPART 100 UNITS/ML 3 ML PEN SC SCH ×2 (08:06→11:52)
[2016-12-24] MEDS: INSULIN GLARGINE SOLOSTAR 100 UNITS/ML 3 ML PEN SC SCH (08:07)
[2016-12-24] MEDS ORDERED: CARVEDILOL 6.25 MG TAB PO SCH (09:00)
--- NOTE | 2016-12-24 14:06 | Progress Note ---
Medicine Progress Note Date & Time of Visit: Dec 24, 2016 at 14:06 . Subjective Doing well. No fever. No cough or shortness of breath. No nausea, vomiting, diarrhea. Anxious to go home. PT and OT assessments indicate that patient is back to her functional baseline. [facility] from [facility] confirms that patient is back to her baseline. . Objective Last 8 Hrs Date Time Temp Pulse Resp B/P (MAP) Pulse Ox O2 Delivery O2 Flow Rate FiO2 12/24/16 08:00 Nasal Cannula 2.0 12/24/16 07:31 36.7 67 18 103/68 (80) 99 2.0 Physical Exam: General- sitting in chair, no distress Neck- + JVD Lungs- diffuse mild wheezing Heart- RRR Abdomen- obese, soft, nontender Extremities- 2-3+ pretibial edema; legs bandaged Neuro- alert . Laboratory Results: Last 24 Hours Test 12/23/16 16:30 12/23/16 20:11 12/24/16 05:31 12/24/16 07:18 Bedside Glucose 198 mg/dl 169 mg/dl 123 mg/dl Sodium Level 139 mmol/L Potassium Level 4.3 mmol/L Chloride Level 99 mmol/L Carbon Dioxide Level 32 mmol/L Anion Gap 8.0 mmol/L Blood Urea Nitrogen 40 mg/dl Creatinine 1.60 mg/dl Est Creatinine Clear Calc Drug Dose 38.1 ml/min Estimated GFR () 36.7 Estimated GFR (Non- 31.6 BUN/Creatinine Ratio 24.9 Random Glucose 114 mg/dl Calcium Level 9.3 mg/dl Test 12/24/16 11:33 Bedside Glucose 189 mg/dl Assessment & Plan ACUTE + CHRONIC HYPOXIC + HYPERCAPNIC RESPIRATORY FAILURE Oxygen saturation 63% on room air when EMS arrived. CO2 elevated on venous blood gas. Respiratory failure probably secondary to combination of sleep apnea, obesity hypoventilation syndrome, superimposed CHF/pulmonary edema. BiPAP applied in ED and continued for ventilatory support. Respiratory status improved. Continue supplemental O2. ALTERED MENTAL STATUS Probable encephalopathy secondary to respiratory failure. Mental status back to baseline. SEPSIS / UTI WBC 18,890 at time of admission. No fever in ED, but tachycardic and tachypnea. Met criteria for sepsis per 2001 definition and current CMS guidelines. Serum lactate 2.4. Hemodynamically stable. No apparent infiltrates on chest x-ray. UA showed leukocyte esterase, wbc's, bacteria. Blood culture and urine culture ordered in ED and broad spectrum antibiotic coverage with piperacillin/tazobactam initiated. Did not receive fluid resuscitation because of (1) hemodynamic stability and (2 ) pulmonary edema. Repeat lactates 2.3, 1.7. Pro-calcitonin 7.21. Urine culture grew Escherichia coli, pansensitive. Changed antibiotic therapy to ceftriaxone. Discharge on amoxicillin to complete course of therapy. CHF / PULMONARY EDEMA. Chest x-ray showed pulmonary edema and BNP elevated. Echocardiogram in the past demonstrated LVEF of 20-25%. Underlying ischemic heart disease. Acute on chronic left ventricular systolic heart failure. No need to repeat echocardiogram at this time since it will not alter management. Chest x-ray today shows improvement. Continue IV furosemide. Continued carvedilol, digoxin. No CRISTIN or ARB due to renal insufficiency. Blood pressure relatively low at times. Carvedilol dose decreased to 6.25 mg twice a day. Furosemide increased to 40 mg twice a day. Digoxin syrup 0.125 mg every other day continued. CORONARY ARTERY DISEASE Status post PCI. No chest pain. Serum troponin negative. Continue aspirin, carvedilol. ATRIAL FIBRILLATION Currently in paced rhythm. Continue carvedilol, amiodarone, digoxin, apixaban. CKD III-IV Serum creatinine 1.6 at time of admission. Creatinine this morning stable @ 1.6. DM TYPE II Well-controlled. Hold repaglinide. Hemoglobin A1c = 6.6. Managed with Lantus and NovoLog per protocol. Fasting blood sugar this morning = 123. Discharge on usual oral therapy with repaglinide. Monitor blood sugars at [facility]. DYSLIPIDEMIA Continue simvastatin. LOWER EXTREMITY VENOUS STASIS ULCERS Chronic. Wound Care Nursing consulted. Continue local care. VTE PROPHYLAXIS Continued apixaban. RESUSCITATION STATUS DNR per advanced directives. DISPOSITION Arrangements being made for return to [facility]. Internal Medicine follow-up with Dr. Lola Jean. Cardiology follow-up with Dr. Gayle. . Current Inpatient Medications: Current Inpatient Medications Medications (Trade) Dose Ordered Sig/Jose Route Start Time Stop Time Status Last Admin Dose Admin Acetaminophen (Tylenol Tab) 650 mg Q4H PRN PO 12/19/16 18:00 01/18/17 17:59 12/24/16 02:56 650 MG Insulin Glargine (Lantus Solostar Pen) 10 unit BID SC 6/25/17 21:00 01/18/17 20:59 12/24/16 08:07 10 UNITS Insulin Aspart (novoLOG ASPART) SLIDING SCALE G... ACHS SC 12/19/16 21:00 01/18/17 20:59 12/24/16 11:52 3 UNITS Glucose (Glucose 40% Gel) 15-30 GRAMS 15 GRAMS... UD PRN PO 12/19/16 21:45 01/18/17 21:44 Glucose (Glucose Chew Tab) 4-8 Tablets 4 Tabl... UD PRN PO 12/19/16 21:45 01/18/17 21:44 Dextrose (Dextrose 50% 50ML Syringe) 25-50ML OF 50% DW IV FOR... UD PRN IV 12/19/16 21:45 01/18/17 21:44 Glucagon (Glucagon Inj) 1 mg UD PRN SQ 12/19/16 21:45 01/18/17 21:44 Amiodarone HCl (Cordarone Tab) 200 mg DAILY PO 12/20/16 09:00 01/19/17 08:59 12/24/16 08:02 200 MG Aspirin (Ecotrin Tab) 81 mg QAM PO 12/20/16 09:00 01/19/17 08:59 12/24/16 08:00 81 MG Digoxin (Lanoxin Tab) 0.125 mg Q2D@1600 PO 12/21/16 16:00 01/20/17 15:59 12/23/16 15:43 0.125 MG Gabapentin (Neurontin Cap) 100 mg TID PO 12/20/16 09:00 01/19/17 08:59 12/24/16 08:01 100 MG Simvastatin (Zocor Tab) 20 mg QPM PO 12/20/16 21:00 01/19/17 20:59 12/23/16 21:09 20 MG Apixaban (Eliquis Tab) 5 mg BID PO 12/20/16 09:00 01/19/17 08:59 12/24/16 08:01 5 MG Ceftriaxone Sodium 2000 mg/ Dextrose 70 ml @ 100 mls/hr DAILY@2100 IV 12/21/16 21:00 12/26/16 20:59 12/23/16 21:08 100 MLS/HR Senna/Docusate Sodium (Senokot S Tab) 1 tab BID PO 12/22/16 09:00 01/21/17 08:59 12/24/16 08:00 1 TAB Polyethylene (Miralax Powder Packet) 17 gm DAILY PRN PO 12/21/16 22:00 01/20/17 21:59 12/23/16 15:49 17 GM Isosorbide Mononitrate (Imdur Ext Rel Tab) 30 mg DAILY PO 12/22/16 09:00 01/21/17 08:59 12/24/16 08:00 30 MG Potassium Chloride (Klor-Con M10) 10 meq TIDM PO 12/23/16 10:00 01/22/17 09:59 12/24/16 11:53 10 MEQ Miconazole Nitrate (Desenex Powder) 1 appln PRN PRN EXT 12/23/16 16:30 01/22/17 16:29 Furosemide (Lasix Tab) 40 mg BID@0900,1500 PO 12/24/16 09:00 01/23/17 08:59 12/24/16 08:00 40 MG Carvedilol (Coreg Tab) 6.25 mg BID PO 12/24/16 09:00 01/23/17 08:59 12/24/16 08:26 6.25 MG
[2016-12-24] MEDS ORDERED: LSX40 PO (14:12)
[2016-12-24] MEDS ORDERED: POTA10TA30 PO (14:12)
[2016-12-24] MEDS ORDERED: AMX500 PO (14:12)
[2016-12-24] MEDS ORDERED: CRG625 PO (14:12)
--- NOTE | 2016-12-24 14:23 | Discharge Instructions ---
Discharge Instructions Date of Service Dec 24, 2016. Admission Reason for Admission: trouble breathing, weakness . Discharge Discharge Diagnosis / Problem: congestive heart failure (fluid in lungs), bladder infection Discharge Goals Goal(s): Decrease discomfort, Improve function, Increase independence, Improve disease control Activity Recommendations Activity Limitations: resume your previous activity . Instructions / Follow-Up Instructions / Follow-Up APPOINTMENTS: INTERNAL MEDICINE 12/31/2016 1:40 PM Lola Jean MD CARDIOLOGY Dr. Gayle as scheduled. INSTRUCTIONS: Call your Primary Care doctor if any of the following symptoms or problems start or get worse: * Shortness of breath or difficulty breathing * Wake up at night short of breath * Chest pain * Cough * Swelling of your hands, feet, or legs * More fatigued or tired with your normal activity * Palpitations - sudden fast heart beats WEIGHT * Weigh yourself every morning after using the bathroom. * Use the same scale. * Wear the same amount of clothing. * Write your weight down on a chart. * Call your Primary Care doctor if you gain more than 2-3 pounds in 1-2 days. MEDICATIONS * Use this discharge instruction sheet for medication instructions. * Take your medications at the time your doctor ordered. * Do not skip a dose of your medicines. * If you miss a dose of medicine, take it as soon as possible, but DO NOT DOUBLE A DOSE. * Read your medicine information when you get home. * Know all of the side effects of your medicine. If in doubt, ask your pharmacist * Call your Primary Care doctor's office if you have any side effects. * Be sure all of your doctors know what medicine and herbs you take (including cold, flu, and herbal medicine). Take the following with you to your follow-up doctor appointments: * Weight Chart * Medication List * List of questions Do not drink excessive alcohol, beer or wine. Continue oxygen 2 liters / minute as before. Continue dressing changes and wound care as before. Check blood sugars twice a day- before breakfast and supper. Keep diary to share with Dr. Jean. Seek medical attention if you have: * temperature above 101 * chest pain or trouble breathing * abdominal pain, nausea, vomiting * diarrhea, dark stools or bloody stools * any unanswered questions or concerns Call 911 if symptoms are severe. Call if you have any questions or problems. My cell # is [phone]. You can also reach a [facility] hospitalist on duty at [facility] 24 hours a day by calling [phone]. Please take good care of yourself. Chace Walker . Current Hospital Diet Patient's current hospital diet: Diabetes Type 2 Diet, AHA Diet (Heart Healthy) Discharge Diet Recommended Diet: AHA Diet (Heart Healthy), Diabetes Type 2 Diet Pending Studies Studies pending at discharge: no Laboratory Results Hemoglobin A1c Test 12/20/16 07:54 Range/Units Estimated Average Glucose 143 mg/dl Hemoglobin A1c 6.6 H 4.5-5.6 % Medical Emergencies . Who to Call and When: Call 911 or go to the Emergency Room if: * If at any time you feel your situation is an emergency * You have tightness or pain in your chest that does not go away with rest or Nitroglycerin * You are very short of breath even with rest . Non-Emergent Contact Non-Emergency issues call your: Primary Care Provider, Hospital Doctor . . "Provider Documentation" section prepared by Chace Walker. . VTE Core Measure Inpt VTE Proph given/why not?: Other Anticoagulation (apixaban)
[2016-12-24 14:32] VITALS: BP 103/68; PULSE 67; TEMP 36.7; O2SAT 99
--- NOTE | 2016-12-25 18:38 | Discharge Summary ---
Discharge Summary Date of Service Dec 25, 2016. Discharge Summary Admission Date: Dec 19, 2016 at 17:56 Discharge Date: Dec 24, 2016 Discharge Disposition: Personal care (House of Care) Principal Diagnosis: acute on chronic hypoxic and hypercapnic respiratory failure acute on chronic left ventricular systolic heart failure encephalopathy sepsis urinary tract infection with Escherichia coli . Secondary Diagnoses/Problems: Chronic Medical Problems: (1) Atrial fibrillation Status: Chronic (2) CKD (chronic kidney disease), stage III Status: Chronic (3) Coronary artery disease Status: Chronic (4) DM type 2 (diabetes mellitus, type 2) Status: Chronic (5) History of osteomyelitis Permanent Comment: R third toe Status: Chronic (6) History of uterine cancer Permanent Comment: s/p XRT Status: Chronic (7) HTN (hypertension) Status: Chronic (8) Pacemaker Status: Chronic (9) Systolic CHF, chronic Permanent Comment: LVEF 20-25% Status: Chronic Surgical Problems: (1) History of total bilateral knee replacement Status: Chronic (2) S/P cholecystectomy Status: Chronic (3) Status post placement of cardiac pacemaker Status: Chronic . Procedures: BiPAP intravenous medications . Pending Studies/Follow-Up: Please monitor basic metabolic profile in clinic. . Medication Reconciliation New Medications: Amoxicillin (Amoxicillin) 500 Mg Cap 500 MG PO TID, #15 CAP Potassium Chloride (Potassium Chloride Cr) 10 Meq Tab 10 MEQ PO BID, #60 TAB 5 Refills Carvedilol (Carvedilol) 6.25 Mg Tab 6.25 MG PO BID, #60 TAB 5 Refills New dose 12/24/16. Furosemide (Furosemide) 40 Mg Tab 40 MG PO BID@0900,1500, #60 TAB 5 Refills New dose 12/24/16 Continued Medications: Acetaminophen (Tylenol) 325 Mg Tab 650 MG PO Q4 PRN for Pain or Fever, TAB do not exceed 3000mg/24 hours Amiodarone Hcl (Cordarone) 200 Mg Tab 200 MG PO DAILY, TAB Apixaban (Eliquis) 5 Mg Tab 5 MG PO BID for 90 Days, #180 TAB Resume on 11/21/2016 Aspirin (Aspirin Chewable) 81 Mg Chew 81 MG PO QAM Bisacodyl (Bisacodyl) 10 Mg Sup 10 MG RE DAILY PRN for Constipation USE IF NO BM IN 4 DAYS. Cholecalciferol (Vitamin D) 2,000 Unit Cap 2000 INTUNIT PO QAM Digoxin (Digoxin) 0.125 Mg Tab 125 MCG PO Q2D Ferrous Sulfate ( Ferrous Sulfate) 325 Mg Tab 1 TAB PO BIDM for 30 Days, TAB 3 Refills Gabapentin (Neurontin) 100 Mg Cap 100 MG PO TID, CAP Isosorbide Mononitrate (Isosorbide Mononitrate ER) 30 Mg Tabcr 30 MG PO DAILY, TAB Magnesium Hydroxide (Milk Of Magnesia) 30 Ml Susp 30 ML PO DIRECTED PRN for constipation, ML if no bm in 3 days Melatonin ( Melatonin) 3 Mg Tab 1 TAB PO HS for 30 Days, #30 TAB Polyethylene Glycol 3350 (Miralax) 1 Pow Pow 17 GM PO DAILY PRN for Constipation, #527 GM Repaglinide (Prandin) 0.5 Mg Tab 0.5 MG PO AC, TAB TAKE 1MG 3 TIMES A DAY 15 MINUTES BEFORE EACH MEAL FOR BLOOD SUGAR Senna/Docusate Sod (Senokot S) 1 Tab Tab 1 TAB PO BID, TAB Simvastatin (Zocor) 20 Mg Tab 20 MG PO QPM, TAB Discontinued Medications: Carvedilol (Coreg) 12.5 Mg Tab 12.5 MG PO BID, TAB Furosemide (Lasix) 40 Mg Tab 40 MG PO DAILY, TAB for edema/breathing Admission Information HPI (per Admitting provider): 71 year-old female followed by Dr. Lola Jean for Internal Medicine. History of ischemic heart disease, systolic heart failure, atrial fibrillation, chronic respiratory failure, diabetes, and other problems noted below. She is a resident at [facility]. Referred to ED because of breast rate difficulties and lethargy. Patient unable to provide any reliable history because of her mental status. ED physician spoke with staff from [facility]. Apparently her oxygen tubing had been partially severed or disconnected. O2 saturation was 63% on room air when EMS arrived. History of present illness and review of systems attempted, but patient was very lethargic and unable to give reliable/consistent answers. . Physical Exam (per Admitting): General Appearance: + moderate distress, + obese Head: normocephalic, atraumatic Eyes: PERRL, EOMI, sclerae normal, + pertinent finding (conjunctivae pink) ENT: + pertinent finding (wearing BiPAP; unable to perform complete exam) Neck: supple, no adenopathy, thyroid normal, trachea midline Respiratory/Chest: + respiratory distress, + accessory muscle use, + rales ( left base), + wheezing Cardiovascular: regular rate, rhythm, + JVD, + tachycardia, + abnormal peripheral pulses (pedal pulses diminished), + pertinent finding (3+ pretibial edema; capillary refill toes 1 sec) Abdomen/GI: normal bowel sounds, non tender, soft, no organomegaly (exam limited), no pulsatile mass, + pertinent finding (obese) Extremities/Musculoskelatal: no calf tenderness, + pertinent finding ( freshly applied dressings to both legs) Neurologic/Psych: + pertinent finding (PERRL, EOMI; follows simple commands ; unable to assess orientation; diffuse motor weakness ~ 4/5) Skin: warm/dry, + pertinent finding (chronic venous stasis changes; shallow ulcers bilat legs noted by ED nurse before dressings applied) Lymphatic: no adenopathy (cervical) Hospital Course ACUTE + CHRONIC HYPOXIC + HYPERCAPNIC RESPIRATORY FAILURE Oxygen saturation 63% on room air when EMS arrived. CO2 elevated on venous blood gas. Respiratory failure probably secondary to combination of sleep apnea, obesity hypoventilation syndrome, superimposed CHF/pulmonary edema. BiPAP applied in ED and continued for ventilatory support. Respiratory status improved. Continue supplemental O2. ALTERED MENTAL STATUS Probable encephalopathy secondary to respiratory failure. Mental status back to baseline. SEPSIS / UTI WBC 18,890 at time of admission. No fever in ED, but tachycardic and tachypnea. Met criteria for sepsis per 2001 definition and current CMS guidelines. Serum lactate 2.4. Hemodynamically stable. No apparent infiltrates on chest x-ray. UA showed leukocyte esterase, wbc's, bacteria. Blood culture and urine culture ordered in ED and broad spectrum antibiotic coverage with piperacillin/tazobactam initiated. Did not receive fluid resuscitation because of (1) hemodynamic stability and (2 ) pulmonary edema. Repeat lactates 2.3, 1.7. Pro-calcitonin 7.21. Urine culture grew Escherichia coli, pansensitive. Changed antibiotic therapy to ceftriaxone. Discharge on amoxicillin to complete course of therapy. CHF / PULMONARY EDEMA. Chest x-ray showed pulmonary edema and BNP elevated. Echocardiogram in the past demonstrated LVEF of 20-25%. Underlying ischemic heart disease. Acute on chronic left ventricular systolic heart failure. No need to repeat echocardiogram at this time since it will not alter management. Chest x-ray today shows improvement. Continue IV furosemide. Continued carvedilol, digoxin. No CIRSTIN or ARB due to renal insufficiency. Blood pressure relatively low at times. Carvedilol dose decreased to 6.25 mg twice a day. Furosemide increased to 40 mg twice a day. Digoxin syrup 0.125 mg every other day continued. CORONARY ARTERY DISEASE Status post PCI. No chest pain. Serum troponin negative. Continue aspirin, carvedilol. ATRIAL FIBRILLATION Currently in paced rhythm. Continue carvedilol, amiodarone, digoxin, apixaban. CKD III-IV Serum creatinine 1.6 at time of admission. Creatinine this morning stable @ 1.6. DM TYPE II Well-controlled. Hold repaglinide. Hemoglobin A1c = 6.6. Managed with Lantus and NovoLog per protocol. Fasting blood sugar this morning = 123. Discharge on usual oral therapy with repaglinide. Monitor blood sugars at [facility]. DYSLIPIDEMIA Continue simvastatin. LOWER EXTREMITY VENOUS STASIS ULCERS Chronic. Wound Care Nursing consulted. Continue local care. VTE PROPHYLAXIS Continued apixaban. RESUSCITATION STATUS DNR per advanced directives. DISPOSITION Arrangements being made for return to [facility]. Internal Medicine follow-up with Dr. Lola Jean. Cardiology follow-up with Dr. Gayle. . Total time spent on discharge = 40 min. This includes examination of the patient, discharge planning, medication reconciliation, and communication with other providers. . Discharge Instructions Date of Service Dec 24, 2016. Admission Reason for Admission: trouble breathing, weakness . Discharge Discharge Diagnosis / Problem: congestive heart failure (fluid in lungs), bladder infection Discharge Goals Goal(s): Decrease discomfort, Improve function, Increase independence, Improve disease control Activity Recommendations Activity Limitations: resume your previous activity . Instructions / Follow-Up Instructions / Follow-Up APPOINTMENTS: INTERNAL MEDICINE 12/31/2016 1:40 PM Lola Jean MD CARDIOLOGY Dr. Gayle as scheduled. INSTRUCTIONS: Call your Primary Care doctor if any of the following symptoms or problems start or get worse: * Shortness of breath or difficulty breathing * Wake up at night short of breath * Chest pain * Cough * Swelling of your hands, feet, or legs * More fatigued or tired with your normal activity * Palpitations - sudden fast heart beats WEIGHT * Weigh yourself every morning after using the bathroom. * Use the same scale. * Wear the same amount of clothing. * Write your weight down on a chart. * Call your Primary Care doctor if you gain more than 2-3 pounds in 1-2 days. MEDICATIONS * Use this discharge instruction sheet for medication instructions. * Take your medications at the time your doctor ordered. * Do not skip a dose of your medicines. * If you miss a dose of medicine, take it as soon as possible, but DO NOT DOUBLE A DOSE. * Read your medicine information when you get home. * Know all of the side effects of your medicine. If in doubt, ask your pharmacist * Call your Primary Care doctor's office if you have any side effects. * Be sure all of your doctors know what medicine and herbs you take (including cold, flu, and herbal medicine). Take the following with you to your follow-up doctor appointments: * Weight Chart * Medication List * List of questions Do not drink excessive alcohol, beer or wine. Continue oxygen 2 liters / minute as before. Continue dressing changes and wound care as before. Check blood sugars twice a day- before breakfast and supper. Keep diary to share with Dr. Jean. Seek medical attention if you have: * temperature above 101 * chest pain or trouble breathing * abdominal pain, nausea, vomiting * diarrhea, dark stools or bloody stools * any unanswered questions or concerns Call 911 if symptoms are severe. Call if you have any questions or problems. My cell # is [phone]. You can also reach a [facility] hospitalist on duty at [facility] 24 hours a day by calling [phone]. Please take good care of yourself. Chace Walker . Current Hospital Diet Patient's current hospital diet: Diabetes Type 2 Diet, AHA Diet (Heart Healthy) Discharge Diet Recommended Diet: AHA Diet (Heart Healthy), Diabetes Type 2 Diet Pending Studies Studies pending at discharge: no Laboratory Results Hemoglobin A1c Test 12/20/16 07:54 Range/Units Estimated Average Glucose 143 mg/dl Hemoglobin A1c 6.6 H 4.5-5.6 % Medical Emergencies . Who to Call and When: Call 911 or go to the Emergency Room if: * If at any time you feel your situation is an emergency * You have tightness or pain in your chest that does not go away with rest or Nitroglycerin * You are very short of breath even with rest . Non-Emergent Contact Non-Emergency issues call your: Primary Care Provider, Hospital Doctor . . "Provider Documentation" section prepared by Chace Walker. . VTE Core Measure Inpt VTE Proph given/why not?: Other Anticoagulation (apixaban) . Additional Copies To Ced Gayle M.D.; Lola Jean M.D.
[2017-02-14] MEDS ORDERED: AMOX875T PO (12:57)
== END 2016-12-24 15:08 | disposition home or self-care (01) | DRG 871 ==
LOC: EDBD 16:01 → C.EDA 16:02 → C.2T 17:56 → ENRESERV 18:16 → C.MS2W 12-22 16:17
PROVIDERS: ADMIT Hospitalist; ATTEND Hospitalist
DX: A41.9 Sepsis, unspecified organism (principal); J96.22 Acute and chronic respiratory failure with hypercapnia; J96.21 Acute and chronic respiratory failure with hypoxia; I50.23 Acute on chronic systolic (congestive) heart failure; G93.40 Encephalopathy, unspecified; N39.0 Urinary tract infection, site not specified; E66.2 Morbid (severe) obesity with alveolar hypoventilation; I13.0 Hypertensive heart and chronic kidney disease with heart failure and stage 1 through stage 4 chronic kidney disease, or unspecified chronic kidney disease; N18.4 Chronic kidney disease, stage 4 (severe); B96.20 Unspecified Escherichia coli [E. coli] as the cause of diseases classified elsewhere; Z68.39 Body mass index [BMI] 39.0-39.9, adult; E78.5 Hyperlipidemia, unspecified; E11.22 Type 2 diabetes mellitus with diabetic chronic kidney disease; I48.91 Unspecified atrial fibrillation; I25.10 Atherosclerotic heart disease of native coronary artery without angina pectoris; Z95.0 Presence of cardiac pacemaker; Z95.5 Presence of coronary angioplasty implant and graft; I87.8 Other specified disorders of veins; Z85.42 Personal history of malignant neoplasm of other parts of uterus; Z90.49 Acquired absence of other specified parts of digestive tract; Z80.9 Family history of malignant neoplasm, unspecified; Z82.49 Family history of ischemic heart disease and other diseases of the circulatory system; Z79.82 Long term (current) use of aspirin; Z79.899 Other long term (current) drug therapy; Z79.01 Long term (current) use of anticoagulants; Z96.653 Presence of artificial knee joint, bilateral

== ENCOUNTER 2017-02-07 22:31 | Inpatient (IN) | payer OTHER ==
[~2017-02-07] VITALS: Ht 165.1 cm; Wt 92.5 kg
[~2017-02-07 22:31] MED LIST changes: -CARV12.52 PO; +CRG625 PO; -FRS/40 PO; +IMDSR30 PO; -ISOS30TA51 PO; +LSX40 PO; -MAGN400T6 PO; -MICO2POW8 TOP; -NYST80OI TOP; +POTA10TA30 PO; -[UNRECOGNIZED DRUG - SUPPLY]
[2017-02-07] MEDS ORDERED: CEFTRIAXONE SOD INJ 1 GM ADDVIAL IV STA (22:50)
--- NOTE | 2017-02-07 23:11 | EMERGENCY ROOM VISIT NOTE ---
ED Visit Note First contact with patient: 22:38 I did evaluate and examine this patient myself. I did guide management for the patient. I agree with the APC's assessment as discussed. Please see the APC's dictation for further details. I did independently review the ultrasound and blood work. The patient has a worsening wound infection to the right leg. She was treated with IV antibiotics and evaluated by the hospitalist.
[2017-02-07 23:27] LABS: BASO % 0.3 %; BASO ABS # 0.02 K/uL (0-0.2); COMPLETE YES; EOS % 4.4 %; HEMATOCRIT 34.8 % (37-47); IG% 0.3 %; LYMPH % 6.7 %; MEAN CELL VOLUME 90.6 fL (80-100); MEAN CORPUSCULAR HEMOGLOBIN 28.1 pg (25-34); MEAN PLATELET VOLUME 8.4 fL (7.4-10.4); MONO % 6.7 %; NEUT % 81.6 %; PLATELET COUNT 212 K/uL (130-400); RED BLOOD COUNT 3.84 M/uL (4.2-5.4); WHITE BLOOD COUNT 7.48 K/uL (4.8-10.8)
[2017-02-07] MEDS ORDERED: MAGN400T6 PO (23:29)
[2017-02-07] MEDS ORDERED: REPA1TAB42 PO (23:31)
[2017-02-07] MEDS ORDERED: MCTP TOP (23:34)
[2017-02-07] MEDS ORDERED: ACETAMINOPHEN 500 MG TAB PO STA (23:39)
[2017-02-08 00:04] LABS: BLOOD UREA NITROGEN 46 mg/dl (7-18); GLUCOSE 298 mg/dl (70-99)
[2017-02-08 00:05] LABS: ALB/GLOB RATIO 0.6 (0.9-2); ALKALINE PHOSPHATASE 65 U/L (45-117); ALT/SGPT 17 U/L (12-78); BUN/CREATININE RATIO 28.9 (10-20); CALCIUM 9.3 mg/dl (8.5-10.1); CARBON DIOXIDE 32 mmol/L (21-32); CHLORIDE 100 mmol/L (98-107); SODIUM 139 mmol/L (136-145)
[2017-02-08 00:50] LABS: PARTIAL THROMBOPLASTIN RATIO 1.2; PROTHROMBIN TIME (PATIENT) 11.2 SECONDS (9.0-12.0)
[2017-02-08 00:54] LABS: POTASSIUM 4.9 mmol/L (3.5-5.1)
[2017-02-08] MEDS ORDERED: HEPARIN SOD 5000 UNIT/0.5 ML CARP SQ SCH (01:00)
[2017-02-08] MEDS ORDERED: ONDANSETRON INJ 2 MG/ML 2 ML VIAL IV PRN (01:00)
[2017-02-08] MEDS ORDERED: MAGNESIUM HYDROXIDE SUSP 30 ML UDC PO PRN (01:15)
[2017-02-08] MEDS ORDERED: MICONAZOLE NITRATE POWDER 43 GM EXT PRN (01:15)
[2017-02-08] MEDS ORDERED: POLYETHYLENE (MIRALAX) 17 GM PACK PO PRN (01:15)
[2017-02-08] MEDS ORDERED: IV FLUIDS COMPLETED PRN (02:30)
[2017-02-08 02:37] VITALS: BP 129/79; PULSE 107; TEMP 36.6; O2SAT 98
[2017-02-08 05:04] VITALS: BP 129/79; PULSE 107; TEMP 36.6; Ht 165.1 cm; Wt 92.5 kg
--- NOTE | 2017-02-08 05:27 | HISTORY & PHYSICAL EXAMINATION ---
DATE OF ADMISSION: 02/08/2017 PRIMARY CARE PHYSICIAN: Dr. Lola Jean. CHIEF COMPLAINT: Pain with sloughing and drainage from right leg wound. HISTORY OF PRESENT COMPLAINT: She is a 71-year-old female with a significant past medical history, including atrial fibrillation, on anticoagulation, systemic heart failure, pure hypercholesterolemia, chronic kidney disease, hypertension and ischemic cardiomyopathy. Apparently, has bilateral leg cellulitis, more on the right than the left side and she has been going to the wound care for the care of the right leg ulcer. She was seen in the wound care on the 8th of this month and at the time, as per the instructions, she was applying Aquacel to the area. She was also advised to put the cream and on putting the cream, the skin flapped this morning and also associated with more drainage and more pain. That is the reason, she was brought into the Emergency Room. The wound care center took a picture and that is in the chart and is showing the wound, superficial, about 10 x 6 cm on the mid leg on the right side. She does have adjoining inflammation and redness and swelling as well. In the ER, she was hemodynamically stable and ultrasound of the leg did not show any clot. She was given ceftriaxone and she was later changed to Unasyn and admitted to medical floor for continuation of care. She did not have any shortness of breath, any chest pain, palpitation, any nausea, vomiting, any fever, chills or rigors, any numbness or tingling in the extremities or any rash involving anywhere in the body. PAST MEDICAL HISTORY: Significant for atrial fibrillation, systolic heart failure, hyperlipidemia, chronic kidney disease, stage III, hypertension and also ischemic cardiomyopathy. PAST SURGICAL HISTORY: Arthroplasty, bilateral knees, excision of a breast lesion in 2016, pacemaker defibrillator placed in 2003. FAMILY HISTORY: Mother had unknown cancer and also heart failure. SOCIAL HISTORY: She is single. She has 3 children. She does not smoke, does not drink and she lives in a personal fci. She moves around with the use of a wheelchair. ALLERGIES: NKDA. MEDICATIONS: She has been on Tylenol 650 mg q. 4 hourly p.r.n., amiodarone 200-mg tablet daily, Eliquis 5 mg twice daily, aspirin 81 mg daily, Coreg 6.25 mg twice daily, vitamin D 2000 units daily, digoxin 0.125 mg daily, ferrous sulfate 325 mg twice daily, furosemide 40 mg twice daily, Neurontin 100 mg t.i.d., isosorbide mononitrate 30 mg daily, magnesium hydroxide as directed, magnesium oxide as directed, melatonin 3 mg daily, MiraLax 17 grams p.o. daily, potassium chloride 10 mEq daily, Prandin 1-mg tablet before meals and simvastatin 20 mg q.p.m. REVIEW OF SYSTEMS: Other systems review unremarkable, except for those mentioned in history of present complaint. PHYSICAL EXAMINATION: GENERAL: On examination in the Emergency Room, she was not having any acute distress. VITAL SIGNS: Temperature 36.7, pulse [id number], blood pressure 130/75, saturation 98% on 2 liters. HEENT: Unremarkable. NECK: Supple. No JVD, no bruit. CHEST: Clear to auscultate bilaterally. HEART: S1, S2 irregular, but no murmur. ABDOMEN: Distended, soft, benign, nontender, no organomegaly. Bowel sounds present. EXTREMITIES: Have bilateral leg edema, bilateral chronic skin changes with bilateral redness of the legs with a superficial ulceration with drainage of a yellowish discharge from the right mid leg. CENTRAL NERVOUS SYSTEM: She is alert, awake, oriented. She is generally weak, but no focal neuro deficit. LABORATORY DATA: Noted today, white count was 7.48, H&H 10.8/34.8, platelet was 212. Sodium 139, potassium 4.9, chloride 100, carbon dioxide 32, BUN 46, creatinine 1.60, creatinine is around that, there is no significant change. Random glucose 298. Lactic acid 2.04. LFTs unremarkable. Troponin less than 0.015. Albumin is 3.1. PT/INR unremarkable. EKG was paced rhythm, rate of 100 per minute IMPRESSION AND PLAN: 1. Worsening cellulitis of the right lower extremity. She has diabetes with peripheral vascular disease and also neuropathy, which is worsening her chronic leg ulceration. She has been following in the wound clinic, but the condition has gotten worse since last with increasing swelling, increasing pain and also drainage and sloughing of skin. She was started with intravenous Unasyn and she will be admitted to medical floor. Wound care consultation and PT, OT evaluation. If possible, change to oral Augmentin on discharge. 2. Ischemic cardiomyopathy with EF of 20%-25% and status post AICD placed. The condition seems to be stable at this time. Continue with current medications, including Lasix. 3. Type 2 diabetes. Blood sugar seems to be high. We will check hemoglobin A1c, we will put her on a sliding scale and continue with her current oral antidiabetic medications. 4. Atrial fibrillation, on Eliquis. Continue with that. Rate is controlled with paced rhythm. 5. Hypertension. Blood pressure is controlled. Continue with current medications. 6. Hyperlipidemia. Continue with the statin. 7. Deep venous thrombosis prophylaxis, on Eliquis. 8. Gastrointestinal prophylaxis will be on Protonix. CODE STATUS: She will be a DNR. That was discussed with her and she has an advanced directive as well. In my clinical assessment, the beneficiary meets criteria as per CMS for 2 midnight stay in the hospital. KAYLA
[2017-02-08] MEDS: AMPICILLIN/SULBACTAM SOD INJ 3,000 MG in SODIUM CHLORIDE 0.9% 100ML 100 ML IV SCH ×4 (05:55→21:24)
--- NOTE | 2017-02-08 07:03 | DIAGNOSTIC IMAGING REPORT ---
RIGHT VENOUS DOPP LOWER EXT UNILAT CLINICAL HISTORY: 71 years-old Female presenting with right lower leg swelling Right. TECHNIQUE: Real-time grayscale and color and spectral Doppler ultrasound imaging of the veins of the right lower extremity was performed. Compression and augmentation were also utilized. COMPARISON: 06/15/2016. FINDINGS: Right: Common femoral vein: Patent. Femoral vein: Patent. Greater saphenous vein: Patent. Popliteal vein: Patent. Calf veins: Limited visualization secondary to subcutaneous edema. Other: None. IMPRESSION: No evidence of deep venous thrombosis. Electronically signed by: Pato Hamilton M.D. 02/08/2017 7:02 AM Dictated Date/Time: 02/08/2017 7:01 AM
[2017-02-08 07:52] VITALS: BP 112/74; PULSE 107; TEMP 36.4; O2SAT 98
[2017-02-08 08:00] VITALS: O2SAT 98
[2017-02-08] MEDS: CARVEDILOL 6.25 MG TAB PO SCH ×2 (08:45→21:24)
[2017-02-08] MEDS: MAGNESIUM OXIDE 400 MG TAB PO SCH (08:45)
[2017-02-08] MEDS: ASPIRIN 81 MG ECTAB PO SCH (08:45)
[2017-02-08] MEDS ORDERED: NURSING VERBAL MED ORDER ONE ×2 (08:45)
[2017-02-08] MEDS: CHOLECALCIFEROL 1000 INTER.UNIT TAB PO SCH (08:45)
[2017-02-08] MEDS: FERROUS SULFATE 325 MG TAB PO SCH ×2 (08:45→17:27)
[2017-02-08] MEDS: REPAGLINIDE 1 MG TAB PO SCH ×3 (08:45→15:33)
[2017-02-08] MEDS: AMIODARONE 200 MG TAB PO SCH (08:45)
[2017-02-08] MEDS: FUROSEMIDE 40 MG TAB PO SCH ×2 (08:46→15:33)
[2017-02-08] MEDS: ISOSORBIDE MONONITRATE 30 MG TABCR PO SCH (08:46)
[2017-02-08] MEDS: GABAPENTIN 100 MG CAP PO SCH ×3 (08:46→21:24)
[2017-02-08] MEDS: POTASSIUM CHLORIDE 10 MEQ TABCR PO SCH ×2 (08:46→17:27)
[2017-02-08] MEDS: DOCUSATE SODIUM/SENNA 50/8.6MG TAB PO SCH ×2 (08:46→21:25)
[2017-02-08] MEDS: APIXABAN 2.5 MG TAB PO SCH ×2 (08:46→21:25)
[2017-02-08] MEDS: INSULIN ASPART 100 UNITS/ML 3 ML PEN SC SCH ×4 (08:51→21:31)
[2017-02-08] MEDS: ACETAMINOPHEN 325 MG TAB PO PRN (12:42)
[2017-02-08] MEDS: TRAMADOL HCL 50 MG TAB PO PRN (13:42)
[2017-02-08 13:50] VITALS: BP 113/70; PULSE 105; O2SAT 97
[2017-02-08] MEDS: DIGOXIN 0.125 MG TAB PO SCH (15:34)
[2017-02-08 15:41] VITALS: BP 109/70; PULSE 109; TEMP 36.3; O2SAT 97
--- NOTE | 2017-02-08 18:24 | Progress Note ---
Internal Med Progress Note Date of Service: Feb 08, 2017. Provider Documentation: SUBJECTIVE: Seen and examined at bedside. States RLE pain is better Denies any chest pain, SOB, abd pain Offers no other complaints. OBJECTIVE: Vital Signs-as noted below Physical Exam: General Appearance:Moderately built and nourished, no apparent distress Head: normocephalic, Atraumatic Eyes: normal inspection, EOMI, PERRL Neck: supple, Trachea midline Respiratory/Chest: Decreased breath sounds, CTA Cardiovascular: S1, S2, +Tachycardia, No murmur Abdomen/GI:Soft, Non tender, protuberant, Bowel sounds present Extremities/Musculoskelatal:normal inspection, RLE in bandage, +edema Neurologic/Psych:grossly no focal neurological deficits Skin: normal color, warm Lab data as noted below. ASSESSMENT & PLAN: RLE cellulitis: H/O DM, PAD and Neuropathy Follows with wound clinic as outpatient Continue IV Unasyn Continue wound care Blood and wound culture pending Venous Doppler:No DVT Possibly plan to transition to oral Augmentin on discharge. H/O Ischemic cardiomyopathy S/P AICD On chronic Oxygen 2L NC Last EF of 20%-25% Continue home meds DM II Last A1C: 6.6 in November 2016 Continue ISS, oral home meds Atrial fibrillation: Continue Eliquis, coreg, digoxin, amiodarone Hypertension: Stable Continue current meds Hyperlipidemia: continue statin CKD III: Cr at baseline DVT Px: on Eliquis CODE STATUS: DNR Disposition: PT/OT and protective services social worker consulted Vital Signs: Date Time Temp Pulse Resp B/P (MAP) Pulse Ox O2 Delivery O2 Flow Rate FiO2 02/08/17 08:00 98 Nasal Cannula 2.0 02/08/17 07:52 36.4 107 16 112/74 (87) 98 2.0 02/08/17 05:04 36.6 107 20 129/79 Nasal Cannula 2.0 02/08/17 02:37 36.6 107 20 129/79 (96) 98 2.0 02/08/17 01:34 102 20 117/71 99 02/08/17 00:05 100 20 130/75 98 Nasal Cannula 2.0 02/07/17 23:00 102 02/07/17 22:59 Nasal Cannula 2.0 02/07/17 22:59 101 02/07/17 22:37 36.8 103 20 116/66 99 Nasal Cannula 2.0 Lab Results: Results Past 24 Hours Test 02/07/17 23:15 02/07/17 23:18 02/08/17 00:33 02/08/17 07:32 Range/Units White Blood Count 7.48 4.8-10.8 K/uL Red Blood Count 3.84 4.2-5.4 M/uL Hemoglobin 10.8 12.0-16.0 g/dL Hematocrit 34.8 37-47 % Mean Corpuscular Volume 90.6 80-100 fL Mean Corpuscular Hemoglobin 28.1 25-34 pg Mean Corpuscular Hemoglobin Concent 31.0 32-36 g/dl Platelet Count 212 130-400 K/uL Mean Platelet Volume 8.4 7.4-10.4 fL Neutrophils (%) (Auto) 81.6 % Lymphocytes (%) (Auto) 6.7 % Monocytes (%) (Auto) 6.7 % Eosinophils (%) (Auto) 4.4 % Basophils (%) (Auto) 0.3 % Neutrophils # (Auto) 6.11 1.4-6.5 K/uL Lymphocytes # (Auto) 0.50 1.2-3.4 K/uL Monocytes # (Auto) 0.50 0.11-0.59 K/uL Eosinophils # (Auto) 0.33 0-0.5 K/uL Basophils # (Auto) 0.02 0-0.2 K/uL RDW Standard Deviation 63.3 36.4-46.3 fL RDW Coefficient of Variation 19.0 11.5-14.5 % Immature Granulocyte % (Auto) 0.3 % Immature Granulocyte # (Auto) 0.02 0.00-0.02 K/uL Sodium Level 139 136-145 mmol/L Potassium Level 4.9 3.5-5.1 mmol/L Chloride Level 100 98-107 mmol/L Carbon Dioxide Level 32 21-32 mmol/L Anion Gap 7.0 3-11 mmol/L Blood Urea Nitrogen 46 7-18 mg/dl Creatinine 1.60 0.60-1.20 mg/dl Est Creatinine Clear Calc Drug Dose 35.9 ml/min Estimated GFR () 36.7 Estimated GFR (Non- 31.6 BUN/Creatinine Ratio 28.9 10-20 Random Glucose 298 70-99 mg/dl Calcium Level 9.3 8.5-10.1 mg/dl Total Bilirubin 0.4 0.2-1 mg/dl Aspartate Amino Transf (AST/SGOT) 14 15-37 U/L Alanine Aminotransferase (ALT/SGPT) 17 12-78 U/L Alkaline Phosphatase 65 45-117 U/L Troponin I < 0.015 0-0.045 ng/ml Total Protein 8.3 6.4-8.2 gm/dl Albumin 3.1 3.4-5.0 gm/dl Globulin 5.2 2.5-4.0 gm/dl Albumin/Globulin Ratio 0.6 0.9-2 Digoxin Level 0.5 0.8-2.0 ng/ml Bedside Lactic Acid Venous 2.04 0.90-1.70 mmol/L Prothrombin Time 11.2 9.0-12.0 SECONDS Prothromb Time International Ratio 1.0 0.9-1.1 Activated Partial Thromboplast Time 30.6 21.0-31.0 SECONDS Partial Thromboplastin Ratio 1.2 Chemistry Specimen Hemolysis Bedside Glucose 231 70-90 mg/dl Test 02/08/17 11:22 02/08/17 14:22 Range/Units Bedside Glucose 239 70-90 mg/dl Microbiology Results 02/07/17 Blood Culture, Received Pending 02/07/17 Blood Culture, Received Pending 02/07/17 Gram Stain - Final, Resulted 02/07/17 Wound Culture, Resulted Pending
[2017-02-08] MEDS ORDERED: NON-FORMULARY MEDICATION (Melatonin (Kp Melatonin) 1 TAB) PO SCH (21:00)
[2017-02-08] MEDS: SIMVASTATIN 20 MG TAB PO SCH (21:25)
[2017-02-09] VITALS: O2SAT 97
[2017-02-09 00:14] VITALS: BP 98/64; PULSE 66; TEMP 36.3; O2SAT 100
[2017-02-09] MEDS ORDERED: NURSING DECISION MEDICATION ORDER SCH (01:15)
[2017-02-09] MEDS: AMPICILLIN/SULBACTAM SOD INJ 3,000 MG in SODIUM CHLORIDE 0.9% 100ML 100 ML IV SCH ×4 (03:56→22:12)
[2017-02-09] MEDS ORDERED: MICONAZOLE NITRATE POWDER 43 GM EXT PRN (04:15)
[2017-02-09] MEDS: REPAGLINIDE 1 MG TAB PO SCH ×3 (06:20→16:02)
[2017-02-09 08:00] VITALS: O2SAT 98
[2017-02-09 08:00] LABS: BUN/CREATININE RATIO 28.3 (10-20); CALCIUM 9.2 mg/dl (8.5-10.1); CREATININE 1.6 mg/dl (0.60-1.20); POTASSIUM 4.3 mmol/L (3.5-5.1)
[2017-02-09] MEDS: MAGNESIUM OXIDE 400 MG TAB PO SCH (08:26)
[2017-02-09] MEDS: AMIODARONE 200 MG TAB PO SCH (08:26)
[2017-02-09] MEDS: FERROUS SULFATE 325 MG TAB PO SCH ×2 (08:26→16:01)
[2017-02-09] MEDS: GABAPENTIN 100 MG CAP PO SCH ×3 (08:26→20:10)
[2017-02-09] MEDS: DOCUSATE SODIUM/SENNA 50/8.6MG TAB PO SCH ×2 (08:26→20:09)
[2017-02-09] MEDS: ASPIRIN 81 MG ECTAB PO SCH (08:26)
[2017-02-09] MEDS: CARVEDILOL 6.25 MG TAB PO SCH ×2 (08:26→20:09)
[2017-02-09] MEDS: CHOLECALCIFEROL 1000 INTER.UNIT TAB PO SCH (08:27)
[2017-02-09] MEDS: FUROSEMIDE 40 MG TAB PO SCH ×2 (08:27→16:01)
[2017-02-09] MEDS: POTASSIUM CHLORIDE 10 MEQ TABCR PO SCH ×2 (08:27→16:02)
[2017-02-09] MEDS: ISOSORBIDE MONONITRATE 30 MG TABCR PO SCH (08:27)
[2017-02-09] MEDS: APIXABAN 2.5 MG TAB PO SCH ×2 (08:27→20:10)
[2017-02-09] MEDS: TRAMADOL HCL 50 MG TAB PO PRN (08:33)
[2017-02-09] MEDS: INSULIN ASPART 100 UNITS/ML 3 ML PEN SC SCH ×4 (08:35→20:14)
[2017-02-09 14:58] VITALS: BP 109/71; PULSE 92; TEMP 36.5; O2SAT 99
[2017-02-09 16:00] VITALS: O2SAT 99
--- NOTE | 2017-02-09 17:25 | Progress Note ---
Internal Med Progress Note Date of Service: Feb 09, 2017. Provider Documentation: SUBJECTIVE: Seen and examined at bedside. Denies RLE pain. Noted some drainage Denies any chest pain, SOB, abd pain Offers no other complaints. OBJECTIVE: Vital Signs-as noted below Physical Exam: General Appearance:Moderately built and nourished, no apparent distress Head: normocephalic, Atraumatic Eyes: normal inspection, EOMI, PERRL Neck: supple, Trachea midline Respiratory/Chest: Decreased breath sounds, CTA Cardiovascular: S1, S2, +Tachycardia, No murmur Abdomen/GI:Soft, Non tender, protuberant, Bowel sounds present Extremities/Musculoskelatal:normal inspection, RLE in bandage, +edema Neurologic/Psych:grossly no focal neurological deficits Skin: normal color, warm Lab data as noted below. ASSESSMENT & PLAN: RLE cellulitis: H/O DM, PAD and Neuropathy Follows with wound clinic as outpatient Continue IV Unasyn Blood culture:No growth to date wound culture pending Venous Doppler:No DVT Possibly plan to transition to oral Augmentin on discharge. Continue wound care H/O Ischemic cardiomyopathy S/P AICD On chronic Oxygen 2L NC Last EF of 20%-25% Continue home meds DM II Last A1C: 6.6 in November 2016 Continue ISS, oral home meds Atrial fibrillation: Continue Eliquis, coreg, digoxin, amiodarone Hypertension: Stable Continue current meds Hyperlipidemia: continue statin CKD III: Cr at baseline DVT Px: on Eliquis CODE STATUS: DNR Disposition: PT/OT and social economist consulted Vital Signs: Date Time Temp Pulse Resp B/P (MAP) Pulse Ox O2 Delivery O2 Flow Rate FiO2 02/09/17 14:58 36.5 92 18 109/71 (84) 99 Nasal Cannula 2.0 02/09/17 08:00 98 Nasal Cannula 2.0 02/09/17 00:14 36.3 66 20 98/64 (75) 100 Nasal Cannula 2.0 02/09/17 00:00 97 Nasal Cannula 2.0 Lab Results: Results Past 24 Hours Test 02/08/17 20:18 02/09/17 07:00 02/09/17 07:38 02/09/17 11:40 Range/Units Bedside Glucose 203 162 254 70-90 mg/dl Sodium Level 140 136-145 mmol/L Potassium Level 4.3 3.5-5.1 mmol/L Chloride Level 101 98-107 mmol/L Carbon Dioxide Level 34 21-32 mmol/L Anion Gap 5.0 3-11 mmol/L Blood Urea Nitrogen 45 7-18 mg/dl Creatinine 1.60 0.60-1.20 mg/dl Est Creatinine Clear Calc Drug Dose 35.2 ml/min Estimated GFR () 36.7 Estimated GFR (Non- 31.6 BUN/Creatinine Ratio 28.3 10-20 Random Glucose 141 70-99 mg/dl Calcium Level 9.2 8.5-10.1 mg/dl Test 02/09/17 16:18 Range/Units Bedside Glucose 168 70-90 mg/dl
[2017-02-09] MEDS: SIMVASTATIN 20 MG TAB PO SCH (20:09)
[2017-02-09 23:50] VITALS: BP 108/67; PULSE 108; TEMP 36.5; O2SAT 93
[2017-02-10] MEDS: TRAMADOL HCL 50 MG TAB PO PRN ×2 (00:07→21:22)
[2017-02-10] MEDS: ACETAMINOPHEN 325 MG TAB PO PRN ×2 (00:37→22:40)
[2017-02-10] MEDS: AMPICILLIN/SULBACTAM SOD INJ 3,000 MG in SODIUM CHLORIDE 0.9% 100ML 100 ML IV SCH ×4 (04:27→21:29)
[2017-02-10] MEDS: REPAGLINIDE 1 MG TAB PO SCH ×3 (05:51→16:05)
[2017-02-10 07:20] VITALS: BP 107/72; PULSE 103; TEMP 36.8; O2SAT 99
[2017-02-10] MEDS: ISOSORBIDE MONONITRATE 30 MG TABCR PO SCH (07:28)
[2017-02-10] MEDS: DOCUSATE SODIUM/SENNA 50/8.6MG TAB PO SCH ×2 (07:28→21:01)
[2017-02-10] MEDS: FERROUS SULFATE 325 MG TAB PO SCH ×2 (07:28→16:04)
[2017-02-10] MEDS: APIXABAN 2.5 MG TAB PO SCH ×2 (07:29→21:00)
[2017-02-10] MEDS: POTASSIUM CHLORIDE 10 MEQ TABCR PO SCH ×2 (07:29→16:05)
[2017-02-10] MEDS: MAGNESIUM OXIDE 400 MG TAB PO SCH (07:29)
[2017-02-10] MEDS: GABAPENTIN 100 MG CAP PO SCH ×3 (07:29→21:00)
[2017-02-10] MEDS: CHOLECALCIFEROL 1000 INTER.UNIT TAB PO SCH (07:29)
[2017-02-10] MEDS: CARVEDILOL 6.25 MG TAB PO SCH ×2 (07:30→21:00)
[2017-02-10] MEDS: FUROSEMIDE 40 MG TAB PO SCH ×2 (07:30→14:09)
[2017-02-10] MEDS: ASPIRIN 81 MG ECTAB PO SCH (07:30)
[2017-02-10] MEDS: AMIODARONE 200 MG TAB PO SCH (07:30)
[2017-02-10 08:17] LABS: BUN/CREATININE RATIO 26.1 (10-20); CALCIUM 9.3 mg/dl (8.5-10.1); CREATININE 1.7 mg/dl (0.60-1.20); POTASSIUM 4.1 mmol/L (3.5-5.1)
[2017-02-10 08:23] LABS: BASO % 0.4 %; BASO ABS # 0.03 K/uL (0-0.2); COMPLETE YES; EOS % 4.3 %; HEMATOCRIT 33.4 % (37-47); IG% 0.3 %; LYMPH % 7.4 %; LYMPH ABS # 0.54 K/uL (1.2-3.4); MEAN CELL VOLUME 92.3 fL (80-100); MEAN CORPUSCULAR HEMOGLOBIN 27.9 pg (25-34); MEAN CORPUSCULAR HGB CONC 30.2 g/dl (32-36); MEAN PLATELET VOLUME 8.3 fL (7.4-10.4); MONO % 7.6 %; PLATELET COUNT 187 K/uL (130-400); RED BLOOD COUNT 3.62 M/uL (4.2-5.4); WHITE BLOOD COUNT 7.28 K/uL (4.8-10.8)
[2017-02-10] MEDS: INSULIN ASPART 100 UNITS/ML 3 ML PEN SC SCH ×4 (08:32→20:59)
--- NOTE | 2017-02-10 08:42 | Clinical Documentation Query ---
CLINICAL DOCUMENTATION QUERY Dr. RUCKER, To assist coding, please specify type of RLE ulcer. In your clinical opinion is this patient being managed for: ( X ) Venous stasis ulcer RLE ( ) Other explanation of clinical findings (Please Explain) ( ) Unable to determine (Please Define) ( ) Need to Discuss ( ) Not Agree The medical record reflects the following clinical findings, treatment, and risk factors. Clinical Indicators: 71 yo female presenting with worsening RLE cellulitis. Noted to have a chronic leg ulceration. Wound clinic note indicates pt has a venous stasis ulcer RLE. Treatment: WOCN consult, dressing changes with aquacel, ABD and kerlix Risk Factors: DM, PVD Please clarify and document your clinical opinion in the progress notes and discharge summary. Terms such as "probable", "suspected", "likely", "questionable", "possible", or "still to be ruled out" are acceptable. IF IN AGREEMENT, YOU MUST DOCUMENT ABOVE DIAGNOSTIC STATEMENT IN DAILY PROGRESS NOTES AND DISCHARGE SUMMARY. This document is not part of the patient's record. Thank You, Miley Steven RN [phone]
[2017-02-10 15:01] VITALS: BP 102/66; PULSE 78; TEMP 36.5; O2SAT 98
[2017-02-10] MEDS: DIGOXIN 0.125 MG TAB PO SCH (16:04)
--- NOTE | 2017-02-10 16:45 | Progress Note ---
Internal Med Progress Note Date of Service: Feb 10, 2017. Provider Documentation: SUBJECTIVE: Seen and examined at bedside. States having mild burning sensation in RLE No drainage noted today Denies any chest pain, SOB, abd pain Offers no other complaints. OBJECTIVE: Vital Signs-as noted below Physical Exam: General Appearance:Moderately built and nourished, no apparent distress Head: normocephalic, Atraumatic Eyes: normal inspection, EOMI, PERRL Neck: supple, Trachea midline Respiratory/Chest: Decreased breath sounds, CTA Cardiovascular: S1, S2, +Tachycardia, No murmur Abdomen/GI:Soft, Non tender, protuberant, Bowel sounds present Extremities/Musculoskelatal:normal inspection, RLE in bandage, +edema Neurologic/Psych:grossly no focal neurological deficits Skin: normal color, warm Lab data as noted below. ASSESSMENT & PLAN: RLE cellulitis: Venous stasis ulcer RLE: H/O DM, PAD and Neuropathy Follows with wound clinic as outpatient Continue IV Unasyn Blood culture:No growth to date Continue wound care Venous Doppler:No DVT Possibly plan to transition to oral Augmentin on discharge. wound culture pending H/O Ischemic cardiomyopathy S/P AICD On chronic Oxygen 2L [place] Last EF of 20%-25% Continue home meds DM II Last A1C: 6.6 in November 2016 Continue ISS, oral home meds Atrial fibrillation: Continue Eliquis, coreg, digoxin, amiodarone Hypertension: Stable Continue usual meds Hyperlipidemia: continue statin CKD III: Cr at baseline DVT Px: on Eliquis CODE STATUS: DNR Disposition: PT/OT and [employer] social worker consulted Vital Signs: Date Time Temp Pulse Resp B/P (MAP) Pulse Ox O2 Delivery O2 Flow Rate FiO2 02/10/17 16:04 76 02/10/17 16:00 Nasal Cannula 2.0 02/10/17 15:01 36.5 78 20 102/66 (78) 98 Nasal Cannula 2.0 02/10/17 08:00 Nasal Cannula 2.0 02/10/17 07:20 36.8 103 20 107/72 (84) 99 Nasal Cannula 2.0 02/10/17 00:00 Nasal Cannula 2.0 02/09/17 23:50 36.5 108 18 108/67 (81) 93 Nasal Cannula 2.0 02/09/17 20:00 Nasal Cannula 2.0 Lab Results: Results Past 24 Hours Test 02/09/17 20:11 02/10/17 07:24 02/10/17 07:37 02/10/17 11:20 Range/Units Bedside Glucose 162 154 224 70-90 mg/dl White Blood Count 7.28 4.8-10.8 K/uL Red Blood Count 3.62 4.2-5.4 M/uL Hemoglobin 10.1 12.0-16.0 g/dL Hematocrit 33.4 37-47 % Mean Corpuscular Volume 92.3 80-100 fL Mean Corpuscular Hemoglobin 27.9 25-34 pg Mean Corpuscular Hemoglobin Concent 30.2 32-36 g/dl Platelet Count 187 130-400 K/uL Mean Platelet Volume 8.3 7.4-10.4 fL Neutrophils (%) (Auto) 80.0 % Lymphocytes (%) (Auto) 7.4 % Monocytes (%) (Auto) 7.6 % Eosinophils (%) (Auto) 4.3 % Basophils (%) (Auto) 0.4 % Neutrophils # (Auto) 5.83 1.4-6.5 K/uL Lymphocytes # (Auto) 0.54 1.2-3.4 K/uL Monocytes # (Auto) 0.55 0.11-0.59 K/uL Eosinophils # (Auto) 0.31 0-0.5 K/uL Basophils # (Auto) 0.03 0-0.2 K/uL RDW Standard Deviation 64.4 36.4-46.3 fL RDW Coefficient of Variation 19.1 11.5-14.5 % Immature Granulocyte % (Auto) 0.3 % Immature Granulocyte # (Auto) 0.02 0.00-0.02 K/uL Sodium Level 139 136-145 mmol/L Potassium Level 4.1 3.5-5.1 mmol/L Chloride Level 99 98-107 mmol/L Carbon Dioxide Level 36 21-32 mmol/L Anion Gap 4.0 3-11 mmol/L Blood Urea Nitrogen 44 7-18 mg/dl Creatinine 1.70 0.60-1.20 mg/dl Est Creatinine Clear Calc Drug Dose 33.1 ml/min Estimated GFR () 34.1 Estimated GFR (Non- 29.4 BUN/Creatinine Ratio 26.1 10-20 Random Glucose 150 70-99 mg/dl Calcium Level 9.3 8.5-10.1 mg/dl Test 02/10/17 16:17 Range/Units Bedside Glucose 184 70-90 mg/dl
[2017-02-10 20:53] VITALS: BP 124/78; PULSE 104
[2017-02-10] MEDS: SIMVASTATIN 20 MG TAB PO SCH (21:01)
[2017-02-11 01:02] VITALS: BP 115/74; PULSE 103; TEMP 36.6; O2SAT 98
[2017-02-11 01:15] VITALS: BP 113/72; PULSE 101; TEMP 36.7; O2SAT 98
[2017-02-11] MEDS: TRAMADOL HCL 50 MG TAB PO PRN ×2 (01:45→22:23)
[2017-02-11] MEDS: AMPICILLIN/SULBACTAM SOD INJ 3,000 MG in SODIUM CHLORIDE 0.9% 100ML 100 ML IV SCH ×4 (04:11→22:25)
[2017-02-11 07:20] VITALS: BP 118/75; PULSE 105; TEMP 36.8; O2SAT 96
[2017-02-11 08:36] LABS: BUN/CREATININE RATIO 27.5 (10-20); CALCIUM 9.1 mg/dl (8.5-10.1); CREATININE 1.7 mg/dl (0.60-1.20); POTASSIUM 4.2 mmol/L (3.5-5.1)
[2017-02-11] MEDS: CARVEDILOL 6.25 MG TAB PO SCH ×2 (08:42→20:51)
[2017-02-11] MEDS: ASPIRIN 81 MG ECTAB PO SCH (08:42)
[2017-02-11] MEDS: AMIODARONE 200 MG TAB PO SCH (08:43)
[2017-02-11] MEDS: MAGNESIUM OXIDE 400 MG TAB PO SCH (08:44)
[2017-02-11] MEDS: CHOLECALCIFEROL 1000 INTER.UNIT TAB PO SCH (08:45)
[2017-02-11] MEDS: ISOSORBIDE MONONITRATE 30 MG TABCR PO SCH (08:45)
[2017-02-11] MEDS: FUROSEMIDE 40 MG TAB PO SCH ×2 (08:45→15:04)
[2017-02-11] MEDS: REPAGLINIDE 1 MG TAB PO SCH ×3 (08:46→17:25)
[2017-02-11] MEDS: GABAPENTIN 100 MG CAP PO SCH ×3 (08:46→22:23)
[2017-02-11] MEDS: DOCUSATE SODIUM/SENNA 50/8.6MG TAB PO SCH ×2 (08:46→20:51)
[2017-02-11] MEDS: POTASSIUM CHLORIDE 10 MEQ TABCR PO SCH ×2 (08:46→17:26)
[2017-02-11] MEDS: FERROUS SULFATE 325 MG TAB PO SCH ×2 (08:46→17:26)
[2017-02-11] MEDS: APIXABAN 2.5 MG TAB PO SCH ×2 (08:47→20:51)
[2017-02-11] MEDS: INSULIN ASPART 100 UNITS/ML 3 ML PEN SC SCH ×4 (08:56→22:24)
[2017-02-11] MEDS: ACETAMINOPHEN 325 MG TAB PO PRN ×2 (09:01→20:53)
[2017-02-11 15:13] VITALS: BP 109/71; PULSE 78; TEMP 36.8; O2SAT 98
--- NOTE | 2017-02-11 16:56 | Progress Note ---
Internal Med Progress Note Date of Service: Feb 11, 2017. Provider Documentation: SUBJECTIVE: Seen and examined at bedside. RLE Erythema improving Still has some mild burning sensation in RLE No drainage noted today Denies any chest pain, SOB, abd pain Offers no other complaints. Eager to get discharged OBJECTIVE: Vital Signs-as noted below Physical Exam: General Appearance:Moderately built and nourished, no apparent distress Head: normocephalic, Atraumatic Eyes: normal inspection, EOMI, PERRL Neck: supple, Trachea midline Respiratory/Chest: Decreased breath sounds, CTA Cardiovascular: S1, S2, +Tachycardia, No murmur Abdomen/GI:Soft, Non tender, protuberant, Bowel sounds present Extremities/Musculoskelatal:normal inspection, RLE in bandage, +edema Neurologic/Psych:grossly no focal neurological deficits Skin: normal color, warm Lab data as noted below. ASSESSMENT & PLAN: RLE cellulitis: Venous stasis ulcer RLE: H/O DM, PAD and Neuropathy Follows with wound clinic as outpatient Continue IV Unasyn Blood culture:No growth to date Continue wound care Venous Doppler:No DVT Possibly plan to transition to oral Augmentin on discharge. wound culture: no growth Wound care nurse following H/O Ischemic cardiomyopathy S/P AICD On chronic Oxygen 2L [place] Last EF of 20%-25% Continue home meds DM II Last A1C: 6.6 in November 2016 Continue ISS, oral home meds Atrial fibrillation: Continue Eliquis, coreg, digoxin, amiodarone Hypertension: Stable Continue usual meds Hyperlipidemia: continue statin CKD III: Cr at baseline DVT Px: on Eliquis CODE STATUS: DNR Disposition: PT/OT and social service manager consulted Vital Signs: Date Time Temp Pulse Resp B/P (MAP) Pulse Ox O2 Delivery O2 Flow Rate FiO2 02/11/17 15:48 Nasal Cannula 2.0 02/11/17 15:13 36.8 78 19 109/71 (84) 98 2.0 02/11/17 08:00 Nasal Cannula 2.0 02/11/17 07:20 36.8 105 18 118/75 (89) 96 Room Air 02/11/17 01:15 36.7 101 19 113/72 (86) 98 Nasal Cannula 2.0 02/11/17 01:02 36.6 103 18 115/74 (88) 98 Nasal Cannula 2.0 02/11/17 00:00 Nasal Cannula 2.0 02/10/17 20:53 104 124/78 (93) 02/10/17 20:00 Nasal Cannula 2.0 Lab Results: Results Past 24 Hours Test 02/10/17 20:24 02/11/17 07:23 02/11/17 07:52 02/11/17 11:19 Range/Units Bedside Glucose 147 154 275 70-90 mg/dl Sodium Level 138 136-145 mmol/L Potassium Level 4.2 3.5-5.1 mmol/L Chloride Level 99 98-107 mmol/L Carbon Dioxide Level 35 21-32 mmol/L Anion Gap 4.0 3-11 mmol/L Blood Urea Nitrogen 47 7-18 mg/dl Creatinine 1.70 0.60-1.20 mg/dl Est Creatinine Clear Calc Drug Dose 33.1 ml/min Estimated GFR () 34.1 Estimated GFR (Non- 29.4 BUN/Creatinine Ratio 27.5 10-20 Random Glucose 139 70-99 mg/dl Calcium Level 9.1 8.5-10.1 mg/dl Test 02/11/17 16:40 Range/Units Bedside Glucose 166 70-90 mg/dl
[2017-02-11 20:48] VITALS: BP 111/75; PULSE 108
[2017-02-11] MEDS: SIMVASTATIN 20 MG TAB PO SCH (20:51)
[2017-02-12 00:04] VITALS: BP 108/62; PULSE 74; TEMP 36.4; O2SAT 100
[2017-02-12] MEDS: AMPICILLIN/SULBACTAM SOD INJ 3,000 MG in SODIUM CHLORIDE 0.9% 100ML 100 ML IV SCH ×4 (04:18→21:22)
[2017-02-12] MEDS: TRAMADOL HCL 50 MG TAB PO PRN ×2 (04:24→08:37)
[2017-02-12 07:33] VITALS: BP 118/80; PULSE 108; TEMP 36.7; O2SAT 97
[2017-02-12 07:58] LABS: BASO % 0.4 %; BASO ABS # 0.03 K/uL (0-0.2); COMPLETE YES; EOS % 3.3 %; HEMATOCRIT 36.9 % (37-47); IG% 0.3 %; LYMPH % 7.5 %; LYMPH ABS # 0.57 K/uL (1.2-3.4); MEAN CELL VOLUME 92.7 fL (80-100); MEAN CORPUSCULAR HEMOGLOBIN 25.9 pg (25-34); MEAN CORPUSCULAR HGB CONC 27.9 g/dl (32-36); MEAN PLATELET VOLUME 8.2 fL (7.4-10.4); MONO % 6.3 %; NEUT % 82.2 %; PLATELET COUNT 195 K/uL (130-400); RED BLOOD COUNT 3.98 M/uL (4.2-5.4); WHITE BLOOD COUNT 7.63 K/uL (4.8-10.8)
[2017-02-12] MEDS: FERROUS SULFATE 325 MG TAB PO SCH ×2 (08:37→16:24)
[2017-02-12] MEDS: ASPIRIN 81 MG ECTAB PO SCH (08:37)
[2017-02-12] MEDS: AMIODARONE 200 MG TAB PO SCH (08:37)
[2017-02-12] MEDS: REPAGLINIDE 1 MG TAB PO SCH ×3 (08:38→16:25)
[2017-02-12] MEDS: DOCUSATE SODIUM/SENNA 50/8.6MG TAB PO SCH ×2 (08:38→21:07)
[2017-02-12] MEDS: GABAPENTIN 100 MG CAP PO SCH ×3 (08:38→21:05)
[2017-02-12] MEDS: FUROSEMIDE 40 MG TAB PO SCH ×2 (08:39→14:33)
[2017-02-12] MEDS: APIXABAN 2.5 MG TAB PO SCH ×2 (08:39→21:06)
[2017-02-12] MEDS: MAGNESIUM OXIDE 400 MG TAB PO SCH (08:39)
[2017-02-12] MEDS: CARVEDILOL 6.25 MG TAB PO SCH ×2 (08:40→21:07)
[2017-02-12] MEDS: POTASSIUM CHLORIDE 10 MEQ TABCR PO SCH ×2 (08:40→16:24)
[2017-02-12] MEDS: ISOSORBIDE MONONITRATE 30 MG TABCR PO SCH (08:40)
[2017-02-12] MEDS: CHOLECALCIFEROL 1000 INTER.UNIT TAB PO SCH (08:40)
[2017-02-12] MEDS: INSULIN ASPART 100 UNITS/ML 3 ML PEN SC SCH ×4 (09:07→21:16)
[2017-02-12 14:48] VITALS: BP 100/64; PULSE 63; TEMP 36.2; O2SAT 100
--- NOTE | 2017-02-12 15:17 | Progress Note ---
Internal Med Progress Note Date of Service: Feb 12, 2017. Provider Documentation: SUBJECTIVE: Seen and examined at bedside. RLE Erythema improved Denies RLE pain Had some bleeding with dressing change yesterday Denies any chest pain, SOB, abd pain Offers no other complaints. OBJECTIVE: Vital Signs-as noted below Physical Exam: General Appearance:Moderately built and nourished, no apparent distress Head: normocephalic, Atraumatic Eyes: normal inspection, EOMI, PERRL Neck: supple, Trachea midline Respiratory/Chest: Decreased breath sounds, CTA Cardiovascular: S1, S2, +Tachycardia, No murmur Abdomen/GI:Soft, Non tender, protuberant, Bowel sounds present Extremities/Musculoskelatal:normal inspection, RLE in bandage, +edema Neurologic/Psych:grossly no focal neurological deficits Skin: normal color, warm Lab data as noted below. ASSESSMENT & PLAN: RLE cellulitis: Venous stasis ulcer RLE: H/O DM, PAD and Neuropathy Follows with wound clinic as outpatient Continue IV Unasyn day #5 Blood culture:No growth to date Continue wound care Venous Doppler:No DVT Possibly plan to transition to oral Augmentin on discharge. wound culture: no growth Reports having issues with wound dressing supplies as outpatient H/O Ischemic cardiomyopathy S/P AICD On chronic Oxygen 2L [place] Last EF of 20%-25% Continue home meds DM II Last A1C: 6.6 in November 2016 Continue ISS, oral home meds Atrial fibrillation: Continue Eliquis, coreg, digoxin, amiodarone Hypertension: Stable Continue usual meds Hyperlipidemia: continue statin CKD III: Cr at baseline DVT Px: on Eliquis CODE STATUS: DNR Disposition: PT/OT and manager social responsibility consulted Vital Signs: Date Time Temp Pulse Resp B/P (MAP) Pulse Ox O2 Delivery O2 Flow Rate FiO2 02/12/17 14:48 36.2 63 20 100/64 (76) 100 2.0 02/12/17 08:00 Nasal Cannula 2.0 02/12/17 07:33 36.7 108 20 118/80 (93) 97 02/12/17 01:00 Nasal Cannula 2.0 02/12/17 00:04 36.4 74 18 108/62 (77) 100 02/11/17 21:00 Nasal Cannula 2.0 02/11/17 20:48 108 111/75 (87) 02/11/17 15:48 Nasal Cannula 2.0 02/11/17 15:13 36.8 78 19 109/71 (84) 98 2.0 Lab Results: Results Past 24 Hours Test 02/11/17 16:40 02/11/17 20:30 02/12/17 07:11 02/12/17 07:32 Range/Units Bedside Glucose 166 131 166 70-90 mg/dl White Blood Count 7.63 4.8-10.8 K/uL Red Blood Count 3.98 4.2-5.4 M/uL Hemoglobin 10.3 12.0-16.0 g/dL Hematocrit 36.9 37-47 % Mean Corpuscular Volume 92.7 80-100 fL Mean Corpuscular Hemoglobin 25.9 25-34 pg Mean Corpuscular Hemoglobin Concent 27.9 32-36 g/dl Platelet Count 195 130-400 K/uL Mean Platelet Volume 8.2 7.4-10.4 fL Neutrophils (%) (Auto) 82.2 % Lymphocytes (%) (Auto) 7.5 % Monocytes (%) (Auto) 6.3 % Eosinophils (%) (Auto) 3.3 % Basophils (%) (Auto) 0.4 % Neutrophils # (Auto) 6.28 1.4-6.5 K/uL Lymphocytes # (Auto) 0.57 1.2-3.4 K/uL Monocytes # (Auto) 0.48 0.11-0.59 K/uL Eosinophils # (Auto) 0.25 0-0.5 K/uL Basophils # (Auto) 0.03 0-0.2 K/uL RDW Standard Deviation 64.8 36.4-46.3 fL RDW Coefficient of Variation 19.1 11.5-14.5 % Immature Granulocyte % (Auto) 0.3 % Immature Granulocyte # (Auto) 0.02 0.00-0.02 K/uL Test 02/12/17 11:21 Range/Units Bedside Glucose 249 70-90 mg/dl
[2017-02-12] MEDS: DIGOXIN 0.125 MG TAB PO SCH (16:25)
[2017-02-12] MEDS: SIMVASTATIN 20 MG TAB PO SCH (21:06)
[2017-02-13 00:18] VITALS: BP 110/79; PULSE 100; TEMP 36.5; O2SAT 100
[2017-02-13] MEDS: AMPICILLIN/SULBACTAM SOD INJ 3,000 MG in SODIUM CHLORIDE 0.9% 100ML 100 ML IV SCH ×4 (04:17→21:59)
[2017-02-13] MEDS: ACETAMINOPHEN 325 MG TAB PO PRN ×2 (04:17→10:25)
[2017-02-13 07:04] LABS: CREATININE 1.8 mg/dl (0.60-1.20)
[2017-02-13 07:05] LABS: BUN/CREATININE RATIO 24.6 (10-20); CALCIUM 8.9 mg/dl (8.5-10.1); POTASSIUM 4.1 mmol/L (3.5-5.1)
[2017-02-13 07:36] VITALS: BP 121/79; PULSE 102; TEMP 36.5; O2SAT 100
[2017-02-13] MEDS: APIXABAN 2.5 MG TAB PO SCH ×2 (08:28→20:49)
[2017-02-13] MEDS: GABAPENTIN 100 MG CAP PO SCH ×3 (08:28→20:49)
[2017-02-13] MEDS: ASPIRIN 81 MG ECTAB PO SCH (08:28)
[2017-02-13] MEDS: CHOLECALCIFEROL 1000 INTER.UNIT TAB PO SCH (08:28)
[2017-02-13] MEDS: FUROSEMIDE 40 MG TAB PO SCH ×2 (08:28→15:18)
[2017-02-13] MEDS: FERROUS SULFATE 325 MG TAB PO SCH ×2 (08:29→16:42)
[2017-02-13] MEDS: AMIODARONE 200 MG TAB PO SCH (08:29)
[2017-02-13] MEDS: DOCUSATE SODIUM/SENNA 50/8.6MG TAB PO SCH ×2 (08:29→20:49)
[2017-02-13] MEDS: MAGNESIUM OXIDE 400 MG TAB PO SCH (08:29)
[2017-02-13] MEDS: REPAGLINIDE 1 MG TAB PO SCH ×3 (08:29→16:42)
[2017-02-13] MEDS: ISOSORBIDE MONONITRATE 30 MG TABCR PO SCH (08:29)
[2017-02-13] MEDS: CARVEDILOL 6.25 MG TAB PO SCH ×2 (08:30→20:50)
[2017-02-13] MEDS: POTASSIUM CHLORIDE 10 MEQ TABCR PO SCH ×2 (08:47→16:42)
[2017-02-13] MEDS: INSULIN ASPART 100 UNITS/ML 3 ML PEN SC SCH ×4 (08:59→20:48)
--- NOTE | 2017-02-13 13:37 | Progress Note ---
Internal Med Progress Note Date of Service: Feb 13, 2017. Provider Documentation: SUBJECTIVE: Seen and examined at bedside. States feeling well Denies RLE pain Denies any chest pain, SOB, abd pain Offers no other complaints. OBJECTIVE: Vital Signs-as noted below Physical Exam: General Appearance:Moderately built and nourished, no apparent distress Head: normocephalic, Atraumatic Eyes: normal inspection, EOMI, PERRL Neck: supple, Trachea midline Respiratory/Chest: Decreased breath sounds, CTA Cardiovascular: S1, S2, +Tachycardia, No murmur Abdomen/GI:Soft, Non tender, protuberant, Bowel sounds present Extremities/Musculoskelatal:normal inspection, RLE in bandage, +edema Neurologic/Psych:grossly no focal neurological deficits Skin: normal color, warm Lab data as noted below. ASSESSMENT & PLAN: RLE cellulitis: Venous stasis ulcer RLE: H/O DM, PAD and Neuropathy Follows with wound clinic as outpatient Continue IV Unasyn day #6 Blood culture:No growth to date Continue wound care Venous Doppler:No DVT Possibly plan to transition to oral Augmentin on discharge. wound culture: no growth Reports having issues with wound dressing supplies as outpatient H/O Ischemic cardiomyopathy S/P AICD On chronic Oxygen 2L [place] Last EF of 20%-25% Continue home meds DM II Last A1C: 6.6 in November 2016 Continue ISS, oral home meds Atrial fibrillation: Continue Eliquis, coreg, digoxin, amiodarone Hypertension: Stable Continue usual meds Hyperlipidemia: continue statin CKD III: Cr at baseline DVT Px: on Eliquis CODE STATUS: DNR Disposition: PT/OT and social work instructor consulted Likely discharge tomorrow Vital Signs: Date Time Temp Pulse Resp B/P (MAP) Pulse Ox O2 Delivery O2 Flow Rate FiO2 02/13/17 08:00 Nasal Cannula 2.0 02/13/17 07:36 36.5 102 20 121/79 (93) 100 02/13/17 00:18 36.5 100 18 110/79 (89) 100 Nasal Cannula 2.0 02/13/17 00:00 Nasal Cannula 2.0 02/12/17 20:00 Nasal Cannula 2.0 02/12/17 16:25 76 02/12/17 16:00 Nasal Cannula 2.0 02/12/17 14:48 36.2 63 20 100/64 (76) 100 2.0 Lab Results: Results Past 24 Hours Test 02/12/17 16:33 02/12/17 20:19 02/13/17 05:58 02/13/17 07:30 Range/Units Bedside Glucose 181 192 138 70-90 mg/dl Sodium Level 139 136-145 mmol/L Potassium Level 4.1 3.5-5.1 mmol/L Chloride Level 100 98-107 mmol/L Carbon Dioxide Level 34 21-32 mmol/L Anion Gap 5.0 3-11 mmol/L Blood Urea Nitrogen 44 7-18 mg/dl Creatinine 1.80 0.60-1.20 mg/dl Est Creatinine Clear Calc Drug Dose 31.3 ml/min Estimated GFR () 31.8 Estimated GFR (Non- 27.4 BUN/Creatinine Ratio 24.6 10-20 Random Glucose 127 70-99 mg/dl Calcium Level 8.9 8.5-10.1 mg/dl Test 02/13/17 11:09 Range/Units Bedside Glucose 220 70-90 mg/dl
[2017-02-13 15:08] VITALS: BP 116/75; PULSE 104; TEMP 36.7; O2SAT 93
[2017-02-13] MEDS: SIMVASTATIN 20 MG TAB PO SCH (20:50)
[2017-02-14] VITALS: BP 108/73; PULSE 105; TEMP 36.6; O2SAT 98
[2017-02-14] MEDS: ACETAMINOPHEN 325 MG TAB PO PRN ×2 (00:29→08:42)
[2017-02-14] MEDS: AMPICILLIN/SULBACTAM SOD INJ 3,000 MG in SODIUM CHLORIDE 0.9% 100ML 100 ML IV SCH ×2 (05:18→10:34)
[2017-02-14 07:33] VITALS: BP 121/77; PULSE 101; TEMP 36.4; O2SAT 98
[2017-02-14] MEDS: FERROUS SULFATE 325 MG TAB PO SCH (08:27)
[2017-02-14] MEDS: REPAGLINIDE 1 MG TAB PO SCH ×2 (08:27→12:29)
[2017-02-14] MEDS: CARVEDILOL 6.25 MG TAB PO SCH (08:28)
[2017-02-14] MEDS: GABAPENTIN 100 MG CAP PO SCH ×2 (08:28→13:47)
[2017-02-14] MEDS: APIXABAN 2.5 MG TAB PO SCH (08:28)
[2017-02-14] MEDS: DOCUSATE SODIUM/SENNA 50/8.6MG TAB PO SCH (08:29)
[2017-02-14] MEDS: AMIODARONE 200 MG TAB PO SCH (08:29)
[2017-02-14] MEDS: ISOSORBIDE MONONITRATE 30 MG TABCR PO SCH (08:29)
[2017-02-14] MEDS: CHOLECALCIFEROL 1000 INTER.UNIT TAB PO SCH (08:29)
[2017-02-14] MEDS: MAGNESIUM OXIDE 400 MG TAB PO SCH (08:30)
[2017-02-14] MEDS: FUROSEMIDE 40 MG TAB PO SCH ×2 (08:30→14:50)
[2017-02-14] MEDS: ASPIRIN 81 MG ECTAB PO SCH (08:30)
[2017-02-14] MEDS: POTASSIUM CHLORIDE 10 MEQ TABCR PO SCH (08:31)
[2017-02-14] MEDS: INSULIN ASPART 100 UNITS/ML 3 ML PEN SC SCH ×2 (08:41→12:33)
[2017-02-14] MEDS: TRAMADOL HCL 50 MG TAB PO PRN (11:35)
--- NOTE | 2017-02-14 12:51 | Progress Note ---
Internal Med Progress Note Date of Service: Feb 14, 2017. Provider Documentation: SUBJECTIVE: Seen and examined at bedside. Doing well Wound dressing was changed this morning RLE pain with dressing change Denies any chest pain, SOB, abd pain Offers no other complaints. OBJECTIVE: Vital Signs-as noted below Physical Exam: General Appearance:Moderately built and nourished, no apparent distress Head: normocephalic, Atraumatic Eyes: normal inspection, EOMI, PERRL Neck: supple, Trachea midline Respiratory/Chest: Decreased breath sounds, CTA Cardiovascular: S1, S2, +Tachycardia, No murmur Abdomen/GI:Soft, Non tender, protuberant, Bowel sounds present Extremities/Musculoskelatal:normal inspection, RLE in bandage, +edema Neurologic/Psych:grossly no focal neurological deficits Skin: normal color, warm Lab data as noted below. ASSESSMENT & PLAN: RLE cellulitis: Venous stasis ulcer RLE: H/O DM, PAD and Neuropathy Follows with wound clinic as outpatient Continue IV Unasyn day #7 Blood culture:No growth to date Continue wound care Venous Doppler:No DVT Plan to transition to oral Augmentin on discharge. wound culture: no growth Reports having issues with wound dressing supplies as outpatient Discussed with today H/O Ischemic cardiomyopathy S/P AICD On chronic Oxygen 2L [place] Last EF of 20%-25% Continue home meds DM II Last A1C: 6.6 in November 2016 Continue ISS, oral home meds Atrial fibrillation: Continue Eliquis, coreg, digoxin, amiodarone Hypertension: Stable Continue usual meds Hyperlipidemia: continue statin CKD III: Cr at baseline DVT Px: on Eliquis CODE STATUS: DNR Disposition: PT/OT and social services specialist consulted Plan to discharge [facility] today Follow up with Primary Care on 02/18/17 at 10:45 Am Follow up with in wound clinic as advised Complete the antibiotic course as prescribed Seek immediate medical attention if your symptoms reoccur or worsen Vital Signs: Date Time Temp Pulse Resp B/P (MAP) Pulse Ox O2 Delivery O2 Flow Rate FiO2 02/14/17 07:33 36.4 101 20 121/77 (92) 98 02/14/17 07:30 Room Air 02/14/17 00:00 Nasal Cannula 2.0 02/14/17 00:00 36.6 105 20 108/73 (85) 98 2.0 02/13/17 20:00 Nasal Cannula 2.0 02/13/17 16:01 Nasal Cannula 2.0 02/13/17 15:08 36.7 104 20 116/75 (89) 93 Lab Results: Results Past 24 Hours Test 02/13/17 16:13 02/13/17 20:27 02/14/17 07:20 02/14/17 11:16 Range/Units Bedside Glucose 182 140 144 205 70-90 mg/dl Creatinine 2.00 0.60-1.20 mg/dl Est Creatinine Clear Calc Drug Dose 28.2 ml/min Estimated GFR () 28.0 Estimated GFR (Non- 24.2
[2017-02-14] MEDS ORDERED: AMOX875T PO (12:57)
--- NOTE | 2017-02-14 13:00 | Discharge Summary ---
Discharge Summary Date of Service Feb 14, 2017. Discharge Summary Admission Date: Feb 08, 2017 at 01:07 Discharge Date: Feb 14, 2017 Discharge Disposition: Personal care Principal Diagnosis: RLE cellulitis, Venous ulcer Procedures: Venous Doppler:No evidence of deep venous thrombosis. Consultations: Wound Care Pending Studies/Follow-Up: Follow up with Primary Care on 02/18/17 at 10:45 Am Follow up with in wound clinic as advised Complete the antibiotic course as prescribed Seek immediate medical attention if your symptoms reoccur or worsen Medication Reconciliation New Medications: Amoxicillin & Pot Clavulanate (Augmentin 875-125 mg) 1 Tab Tab 1 TAB PO BID for 10 Days, #20 TAB Continued Medications: Acetaminophen (Tylenol) 325 Mg Tab 650 MG PO Q4 PRN for Pain or Fever, TAB do not exceed 3000mg/24 hours Amiodarone Hcl (Cordarone) 200 Mg Tab 200 MG PO DAILY, TAB Apixaban (Eliquis) 5 Mg Tab 5 MG PO BID for 90 Days, #180 TAB Resume on 11/21/2016 Aspirin (Aspirin Chewable) 81 Mg Chew 81 MG PO QAM Carvedilol (Carvedilol) 6.25 Mg Tab 6.25 MG PO BID, #60 TAB 5 Refills New dose 12/24/16. Cholecalciferol (Vitamin D) 2,000 Unit Cap 2000 INTUNIT PO QAM Digoxin (Digoxin) 0.125 Mg Tab 125 MCG PO Q2D Ferrous Sulfate (Kp Ferrous Sulfate) 325 Mg Tab 1 TAB PO BIDM for 30 Days, TAB 3 Refills Furosemide (Furosemide) 40 Mg Tab 40 MG PO BID@0900,1500, #60 TAB 5 Refills New dose 12/24/16 Gabapentin (Neurontin) 100 Mg Cap 100 MG PO TID, CAP Isosorbide Mononitrate (Isosorbide Mononitrate ER) 30 Mg Tabcr 30 MG PO DAILY, TAB Magnesium Hydroxide (Milk Of Magnesia) 30 Ml Susp 30 ML PO DIRECTED PRN for constipation, ML if no bm in 3 days Magnesium Oxide (Mag-Ox) 400 Mg Tab 100 MG PO DAILY 1/4 tablet dose Melatonin (Kp Melatonin) 3 Mg Tab 1 TAB PO HS for 30 Days, #30 TAB Miconazole Nitrate (Desenex Shake Powder) 43 Appln/43 Gm Powd 1 APPLN TOP UD PRN for fungal infection apply to skin folds as needed Polyethylene Glycol 3350 (Miralax) 1 Pow Pow 17 GM PO DAILY PRN for Constipation, #527 GM Potassium Chloride (Potassium Chloride Cr) 10 Meq Tab 10 MEQ PO BID, #60 TAB 5 Refills Repaglinide (Prandin) 1 Mg Tab 1 MG PO AC take 15 min before each meal Senna/Docusate Sod (Senokot S) 1 Tab Tab 1 TAB PO BID, TAB Simvastatin (Zocor) 20 Mg Tab 20 MG PO QPM, TAB Admission Information HPI (per Admitting provider): PRIMARY CARE PHYSICIAN: Dr. Lola Jean. CHIEF COMPLAINT: Pain with sloughing and drainage from right leg wound. HISTORY OF PRESENT COMPLAINT: She is a 71-year-old female with a significant past medical history, including atrial fibrillation, on anticoagulation, systemic heart failure, pure hypercholesterolemia, chronic kidney disease, hypertension and ischemic cardiomyopathy. Apparently, has bilateral leg cellulitis, more on the right than the left side and she has been going to the wound care for the care of the right leg ulcer. She was seen in the wound care on the 8th of this month and at the time, as per the instructions, she was applying Aquacel to the area. She was also advised to put the cream and on putting the cream, the skin flapped this morning and also associated with more drainage and more pain. That is the reason, she was brought into the Emergency Room. The wound care center took a picture and that is in the chart and is showing the wound, superficial, about 10 x 6 cm on the mid leg on the right side. She does have adjoining inflammation and redness and swelling as well. In the ER, she was hemodynamically stable and ultrasound of the leg did not show any clot. She was given ceftriaxone and she was later changed to Unasyn and admitted to medical floor for continuation of care. She did not have any shortness of breath, any chest pain, palpitation, any nausea, vomiting, any fever, chills or rigors, any numbness or tingling in the extremities or any rash involving anywhere in the body. Physical Exam (per Admitting): PHYSICAL EXAMINATION: GENERAL: On examination in the Emergency Room, she was not having any acute distress. VITAL SIGNS: Temperature 36.7, pulse [id number], blood pressure 130/75, saturation 98% on 2 liters. HEENT: Unremarkable. NECK: Supple. No JVD, no bruit. CHEST: Clear to auscultate bilaterally. HEART: S1, S2 irregular, but no murmur. ABDOMEN: Distended, soft, benign, nontender, no organomegaly. Bowel sounds present. EXTREMITIES: Have bilateral leg edema, bilateral chronic skin changes with bilateral redness of the legs with a superficial ulceration with drainage of a yellowish discharge from the right mid leg. CENTRAL NERVOUS SYSTEM: She is alert, awake, oriented. She is generally weak, but no focal neuro deficit. Hospital Course RLE cellulitis: Venous stasis ulcer RLE: H/O DM, PAD and Neuropathy Follows with wound clinic as outpatient Continue IV Unasyn day #7 Blood culture:No growth to date Continue wound care Venous Doppler:No DVT Plan to transition to oral Augmentin on discharge. wound culture: no growth Reports having issues with wound dressing supplies as outpatient Discussed with today H/O Ischemic cardiomyopathy S/P AICD On chronic Oxygen 2L NC Last EF of 20%-25% Continue home meds DM II Last A1C: 6.6 in November 2016 Continue ISS, oral home meds Atrial fibrillation: Continue Eliquis, coreg, digoxin, amiodarone Hypertension: Stable Continue usual meds Hyperlipidemia: continue statin CKD III: Cr at baseline DVT Px: on Eliquis CODE STATUS: DNR Disposition: PT/OT and social worker consulted Plan to discharge [facility] today Follow up with Primary Care on 02/18/17 at 10:45 Am Follow up with in wound clinic as advised Complete the antibiotic course as prescribed Seek immediate medical attention if your symptoms reoccur or worsen Total time spent on discharge = 35 minutes This includes examination of the patient, discharge planning, medication reconciliation, and communication with other providers. Discharge Instructions Discharge Instructions Date of Service Feb 14, 2017. Admission Reason for Admission: Cellulitis Of Rt Leg Without Foot Discharge Discharge Diagnosis / Problem: RLE cellulitis, Venous ulcer Discharge Goals Goal(s): Decrease discomfort, Improve function Activity Recommendations Activity Limitations: resume your previous activity Exercise/Sports Limitations: as tolerated . Instructions / Follow-Up Instructions / Follow-Up Follow up with Primary Care on 02/18/17 at 10:45 Am Follow up with in wound clinic as advised Complete the antibiotic course as prescribed Seek immediate medical attention if your symptoms reoccur or worsen Current Hospital Diet Patient's current hospital diet: AHA Diet (Heart Healthy), Diabetes Type 2 Diet Discharge Diet Recommended Diet: AHA Diet (Heart Healthy), Diabetes Type 2 Diet Pending Studies Studies pending at discharge: no Laboratory Results Hemoglobin A1c Test 12/20/16 07:54 Range/Units Estimated Average Glucose 143 mg/dl Hemoglobin A1c 6.6 H 4.5-5.6 % Medical Emergencies . Who to Call and When: Medical Emergencies: If at any time you feel your situation is an emergency, please call 911 immediately. . Non-Emergent Contact Non-Emergency issues call your: Primary Care Provider, Specialist (Wound clinic ) Call Non-Emergent contact if: you have a fever, your pain is not controlled, your pain is worsening, your pain is unusual for you, you have any medication questions Seek immediate medical attention if your symptoms reoccur or worsen . . "Provider Documentation" section prepared by Harry Fitch. . VTE Core Measure Inpt VTE Proph given/why not?: Other Anticoagulation (Eliquis)
[2017-02-14 15:53] VITALS: BP 121/77; PULSE 101; TEMP 36.4; O2SAT 98
--- NOTE | 2017-02-15 08:32 | Wound Progress Note: Inpatient ---
Wound Progress Note Date of Service Feb 14, 2017. Subjective Pt evaluation today including: conversation w/ patient, chart review Patient was seen today in consultation after a recent admission to [facility] 7 days prior for cellulitis with venous stasis ulcerations the right lower extremity. Patient the current time denies any significant pain or increased swelling or redness to the leg. Patient denies any fever chills or night sweats. Patient denies any chest pain shortness of breath abdominal discomfort nausea or vomiting. Patient was seen in the outpatient clinic 1 day prior to the patient's admission. Objective Vital Signs Date Time Temp Pulse Resp B/P (MAP) Pulse Ox O2 Delivery O2 Flow Rate FiO2 02/14/17 15:53 36.4 101 20 98 Nasal Cannula 02/14/17 15:05 Nasal Cannula 2.0 Physical Exam Notes: Patient is currently lying in a hospital bed in no acute distress alert and cooperative examination vital signs were reviewed and found to be unremarkable patient is afebrile. There is an ulceration present in the right lower extremity measuring 12 x 13 x 0.1 cm. There is scattered slough noted throughout the ulcerative site. There is persistent edema with no significant periwound erythema tenderness or fluctuance to palpation noted. Distal neurovascular bundle is intact. Laboratory Results Last 24 Hours Test 02/14/17 11:16 Bedside Glucose 205 mg/dl Assessment and Plan Assessment: Venous stasis ulceration right lower extremity in the face of resolving cellulitis Chronic peripheral edema with venous insufficiency Plan: At this time and with the patient's permission the site did require debridement. After the application of topical Xylocaine 4% site was debridement with a #5 curette. Central slough was removed bleeding did occur no subcutaneous tissue was removed. Bleeding was controlled with direct pressure. The site will be dressed with Adaptic touch and Kaltostat dressings to be changed daily. Patient clinic. This represented a non-excisional debridement of 156 cm. Patient's care was discussed with the hospitalist and is in agreement with the plan.
--- NOTE | 2017-02-24 21:55 | EMERGENCY ROOM VISIT NOTE ---
History First contact with patient: 22:38 Chief Complaint: WOUND INFECTION Stated Complaint: LEG PAIN Nursing Triage Summary: Patient is from the [place] [facility]. Patient states her legs were dry so she was putting lotion on them and then a large piece of skin fell off right lower leg. This happend about 1-2 weeks ago, more painful tonight. Large wound on right lower leg and draining serous fluid. Bilateral lower legs red. Right leg more red and swollen. History of Present Illness The patient is a 71 year old female who presents to the Emergency Room with complaints of increasing pain and swelling and drainage from the right lower leg for the past week. Patient has a history of cellulitis to this leg. She has venous stasis dermatitis and ulcers in the past. She follows at the wound clinic. She saw them last week and saw Dr. Sen Ball. She is currently not on antibiotics. She is to follow-up this week. Patient states the past 2 days the leg is more swollen and painful. More of the skin has fallen off. Patient complains of feeling fatigued with chills. Patient denies chest pain, dyspnea, cough, congestion, abdominal pain, numbness, tingling. She does not check her blood sugars. No documented temperature. Review of Systems See HPI for pertinent positives & negatives. A total of 10 systems reviewed and were otherwise negative. Past Medical/Surgical History Medical Problems: (1) Acute and chronic respiratory failure (2) Atrial fibrillation (3) Cellulitis of right leg without foot (4) CHF (congestive heart failure) (5) CKD (chronic kidney disease), stage III (6) Coronary artery disease (7) DM type 2 (diabetes mellitus, type 2) (8) History of osteomyelitis (9) History of uterine cancer (10) HTN (hypertension) (11) Pacemaker (12) Respiratory distress (13) Systolic CHF, chronic Surgical Problems: (1) History of total bilateral knee replacement (2) S/P cholecystectomy (3) Status post placement of cardiac pacemaker Family History Cancer MOTHER Heart disease MOTHER Social History Smoking Status: Never Smoker Smokeless Tobacco Use: No Drug Use: none Marital Status: Housing Status: other Occupation Status: retired Current/Historical Medications Scheduled Amiodarone Hcl (Cordarone), 200 MG PO DAILY Amoxicillin & Pot Clavulanate (Augmentin 875-125 mg), 1 TAB PO BID Apixaban (Eliquis), 5 MG PO BID Aspirin (Aspirin Chewable), 81 MG PO QAM Carvedilol (Carvedilol), 6.25 MG PO BID Cholecalciferol (Vitamin D), 2,000 INTUNIT PO QAM Digoxin (Digoxin), 125 MCG PO Q2D Ferrous Sulfate ( Ferrous Sulfate), 1 TAB PO BIDM Furosemide (Furosemide), 40 MG PO BID@0900,1500 Gabapentin (Neurontin), 100 MG PO TID Isosorbide Mononitrate (Isosorbide Mononitrate ER), 30 MG PO DAILY Magnesium Oxide (Mag-Ox), 100 MG PO DAILY Melatonin ( Melatonin), 1 TAB PO HS Potassium Chloride (Potassium Chloride Cr), 10 MEQ PO BID Repaglinide (Prandin), 1 MG PO AC Senna/Docusate Sod (Senokot S), 1 TAB PO BID Simvastatin (Zocor), 20 MG PO QPM Scheduled PRN Acetaminophen (Tylenol), 650 MG PO Q4 PRN for Pain or Fever Magnesium Hydroxide (Milk Of Magnesia), 30 ML PO DIRECTED PRN for constipation Miconazole Nitrate (Desenex Shake Powder), 1 APPLN TOP UD PRN for fungal infection Polyethylene Glycol 3350 (Miralax), 17 GM PO DAILY PRN for Constipation Physical Exam Vital Signs Date Time Temp Pulse Resp B/P (MAP) Pulse Ox O2 Delivery O2 Flow Rate FiO2 02/08/17 00:05 100 20 130/75 98 Nasal Cannula 2.0 02/07/17 23:00 102 02/07/17 22:59 Nasal Cannula 2.0 02/07/17 22:59 101 02/07/17 22:37 36.8 103 20 116/66 99 Nasal Cannula 2.0 Physical Exam VITALS: Vitals are noted on the nurse's note and reviewed by myself. Vital signs by the tachycardic GENERAL: Pleasant female, in no acute distress, nondiaphoretic, well-developed well-nourished. SKIN: The skin was without rashes, erythema, edema, or bruising. There is no tenting of the skin. Capillary reflex less than 2 seconds. HEAD: Normocephalic atraumatic. EARS: External auditory canals clear, tympanic membranes pearly morse without erythema or effusion bilaterally. EYES: Pupils equal round and reactive to light and accommodation. Conjunctivae without injection, sclerae without icterus. Extraocular movements intact. NOSE: Patent, turbinates without inflammation or discharge. MOUTH: Mucous membranes mildly dry. Pharynx without erythema or exudate. Uvula midline. Airway patent. Tongue does not deviate. NECK: Supple without nuchal rigidity. No lymphadenopathy. No thyromegaly. Cervical spine is nontender. No JVD. HEART: Regular rate and rhythm LUNGS: Clear to auscultation bilaterally without wheezes, rales or rhonchi. No dullness to percussion. No retractions or accessory muscle use. ABDOMEN: Positive bowel sounds x 4. Normal tympanic percussion. Soft, nontender, without masses or organomegaly. Torrez sign negative. No guarding or rebound tenderness. MUSCULOSKELETAL: No muscle atrophy noted. Bilateral lower legs erythematous edematous consistent with venous stasis dermatitis and right lower leg is more erythematous edematous with skin sloughing and warmth present extending to the majority of the entire anterior aspect of the right lower leg not involving the foot or knee. The erythema has spread since last week from review of the wound clinic picture from online. Pulses +2 equal present bilaterally. Wound culture was obtained and sent. NEURO: Patient was alert and oriented to person place and time. Normal sensation to light and sharp touch. No focal neurological deficits. Medical Decision & Procedures Laboratory Results Test 02/07/17 23:15 02/07/17 23:18 02/08/17 00:33 Total Bilirubin 0.4 mg/dl (0.2-1) Alanine Aminotransferase (ALT/SGPT) 17 U/L (12-78) Alkaline Phosphatase 65 U/L (45-117) Troponin I < 0.015 ng/ml (0-0.045) Total Protein 8.3 gm/dl (6.4-8.2) Albumin 3.1 gm/dl (3.4-5.0) Globulin 5.2 gm/dl (2.5-4.0) Albumin/Globulin Ratio 0.6 (0.9-2) Digoxin Level 0.5 ng/ml (0.8-2.0) Bedside Lactic Acid Venous 2.04 mmol/L (0.90-1.70) Prothrombin Time 11.2 SECONDS (9.0-12.0) Prothromb Time International Ratio 1.0 (0.9-1.1) Activated Partial Thromboplast Time 30.6 SECONDS (21.0-31.0) Partial Thromboplastin Ratio 1.2 Aspartate Amino Transf (AST/SGOT) 14 U/L (15-37) Chemistry Specimen Hemolysis Date/Time Source Procedure Growth Status 02/07/17 23:15 Blood Blood Culture - Final NO GROWTH Complete 02/07/17 22:50 Drainage - Surface Leg Right Lower Gram Stain - Final Complete 02/07/17 22:50 Wound Culture - Final Coag Neg Staphylococcus Corynebacterium Species Complete Medications Administered Medications (Trade) Dose Ordered Sig/Jose Route Start Time Stop Time Status Last Admin Dose Admin Ceftriaxone Sodium (Rocephin Inj) 1 gm NOW STAT IV 02/07/17 22:50 02/07/17 22:52 DC 02/07/17 22:50 1 GM Acetaminophen (Tylenol Tab) 1,000 mg NOW STAT PO 02/07/17 23:39 02/07/17 23:40 DC 02/07/17 23:56 1,000 MG Acetaminophen (Tylenol Tab) 650 mg Q4H PRN PO 02/08/17 01:00 02/14/17 16:15 DC 02/14/17 08:42 650 MG ED Course Prior records reviewed and summarized as above. Triage Nursing notes reviewed. Additional history obtained from care home. The patient's history was concerning for swelling and redness of the skin. Differential diagnosis: Etiologies such as cellulitis, abscess, MRSA infection, DVT, necrotizing fasciitis, dermatitis, drug eruption, as well as others were entertained.. Physical examination: The physical examination was consistent with cellulitis ER treatment provided: Rocephin, APAP On reassessment the patient felt better. Diagnostics interpreted by me: EKG: Paced ventricular rhythm with no acute ST-T wave changes, rate of 100. Impression paced rhythm rate of 100 interpreted by myself The labs revealed hyperglycemia without DKA stable H&H per chart review elevated lactic acid Imaging studies: Ultrasound negative for DVT Consultation: A consultation was placed with Dr Lucero, hospitalist. The case was discussed and diagnostics were reviewed. The patient was evaluated in the ER for further treatment. This appears to be extensive cellulitis. Patient will be evaluated by Medicine for possible admission. Patient was started on antibiotics. She had extensive cellulitis. She was neurovascularly and neurologically intact. She had an elevated lactic acid. Stable H&H. By the evaluation outlined above emergent etiologies such as abscess, necrotizing fasciitis, DVT, as well as others were deemed relatively unlikely. The pt informed about the findings as listed above. All questions were answered and pleased with the treatment. Case reviewed with my Attending. Medical Decision as above Medication Reconcilliation Current Medication List: was personally reviewed by me Blood Pressure Screening Patient's blood pressure: Normal blood pressure Impression Primary Impression: Cellulitis of right lower leg Additional Impression: Anemia Departure Information Dispostion Being Evaluated By Hospitalist Condition FAIR Prescriptions Amoxicillin & Pot Clavulanate (Augmentin 875-125 mg) 1 Tab Tab 1 TAB PO BID for 10 Days, #20 TAB Prov: Harry Fitch MD 02/14/17 Referrals Lola Jean M.D. (PCP) Patient Instructions My [facility] Problem Qualifiers
== END 2017-02-14 16:14 | disposition home or self-care (01) | DRG 603 ==
LOC: EDBD 22:31 → C.EDC 22:34 → C.MS2W 02-08 01:07 → EDBEDREQ 02-08 01:12 → ENRESERV 02-08 01:17
PROVIDERS: ADMIT Internal Medicine; ATTEND Internal Medicine
PROC: 0HDKXZZ Extraction of Right Lower Leg Skin, External Approach (ICD-10-PCS; principal; 2017-02-14)
DX: L03.115 Cellulitis of right lower limb (principal); L97.919 Non-pressure chronic ulcer of unspecified part of right lower leg with unspecified severity; I13.0 Hypertensive heart and chronic kidney disease with heart failure and stage 1 through stage 4 chronic kidney disease, or unspecified chronic kidney disease; I50.20 Unspecified systolic (congestive) heart failure; I25.5 Ischemic cardiomyopathy; E11.622 Type 2 diabetes mellitus with other skin ulcer; E11.51 Type 2 diabetes mellitus with diabetic peripheral angiopathy without gangrene; E11.40 Type 2 diabetes mellitus with diabetic neuropathy, unspecified; E11.22 Type 2 diabetes mellitus with diabetic chronic kidney disease; N18.3 Chronic kidney disease, stage 3 (moderate); I48.91 Unspecified atrial fibrillation; E78.5 Hyperlipidemia, unspecified; Z66 Do not resuscitate; Z96.653 Presence of artificial knee joint, bilateral; Z95.810 Presence of automatic (implantable) cardiac defibrillator; Z99.81 Dependence on supplemental oxygen; Z79.01 Long term (current) use of anticoagulants; Z79.82 Long term (current) use of aspirin; Z79.84 Long term (current) use of oral hypoglycemic drugs; Z79.899 Other long term (current) drug therapy; Z82.49 Family history of ischemic heart disease and other diseases of the circulatory system

== ENCOUNTER 2017-05-24 17:04 | Inpatient (IN) | payer OTHER ==
[~2017-05-24] VITALS: Ht 167.6 cm; Wt 119.1 kg
[~2017-05-24 17:04] MED LIST changes: +BISA10SU5 PR; -BISA10SU5 RE; +CARV6.252 PO; -CRG625 PO; -FERR1TAB13 PO; +FERR325T5 PO; +FRS/40 PO; -LSX40 PO; +MAGN400T6 PO; -MELA1TAB5 PO; +POTA10TA PO; -POTA10TA30 PO; +REPA1TAB40 PO; -REPA1TAB5 PO; -SENN-65 PO; +SENN1TAB86 PO
[2017-05-24] MEDS ORDERED: SODIUM CHLORIDE 0.9% 1000ML 1,000 ML IV STA (17:16)
[2017-05-24] MEDS ORDERED: SODIUM CHLORIDE 0.9% 250ML 250 ML IV STA (17:16)
--- NOTE | 2017-05-24 17:20 | EMERGENCY ROOM VISIT NOTE ---
History Report prepared by Luis A: Filiberto Martinez Under the Supervision of: Dr. Gosia Lee M.D. First contact with patient: 17:13 Chief Complaint: HYPERGLYCEMIA Stated Complaint: HIGH GLUCOSE 500+, LETHARGIC History of Present Illness The patient is a 71 year old female who presents to the Emergency Room with persistent hyperglycemia that was detected prior to arrival this afternoon. Per the patient's caregiver, the patient has been having a cough, so she was seen by her primary care physician (Dr. Jean of [facility]) earlier today, and had blood work and a chest x-ray. The patient was noted to have a glucose of over 500, and was told to come here for further evaluation. Per the patient's caregiver, the patient's glucose normally runs high, to around 200 or 300, but never to around 500. She had her glucose last checked before her appointment around 0900 this morning, and her glucose was around 200 at that time. The patient has also been noted to have diabetic sores on her legs, and was seen at the wound clinic today. Any fevers were denied on behalf of the patient. The patient is on Eliquis. She lives in a personal chcf. Source of History: caregiver Onset: DIRECTOR INSURANCE this afternoon Position: other (global - hyperglycemia) Symptom Intensity: around 500 Quality: other (never gets this high) Timing: other (persistent) Associated Symptoms: + cough, No fevers Note: No other associated symptoms noted. Review of Systems See HPI for pertinent positives & negatives. A total of 10 systems reviewed and were otherwise negative. Past Medical & Surgical Medical Problems: (1) Acute and chronic respiratory failure (2) Atrial fibrillation (3) Cellulitis of right leg without foot (4) CHF (congestive heart failure) (5) CKD (chronic kidney disease), stage III (6) Coronary artery disease (7) DM type 2 (diabetes mellitus, type 2) (8) Encephalopathy (9) History of osteomyelitis (10) History of uterine cancer (11) HTN (hypertension) (12) Pacemaker (13) Respiratory distress (14) Systolic CHF, chronic Surgical Problems: (1) History of total bilateral knee replacement (2) S/P cholecystectomy (3) Status post placement of cardiac pacemaker Family History Cancer MOTHER Heart disease MOTHER Social History Smoking Status: Never Smoker Drug Use: none Marital Status: Housing Status: other Occupation Status: retired Current/Historical Medications Scheduled Amiodarone Hcl (Cordarone), 200 MG PO QAM Apixaban (Eliquis), 5 MG PO BID Aspirin (Aspirin Chewable), 81 MG PO QAM Carvedilol (Coreg), 1 TAB PO BID Cholecalciferol (Vitamin D), 2,000 INTUNIT PO QAM Digoxin (Digoxin), 125 MCG PO QAM Ferrous Sulfate (Ferrous Sulfate), 1 TAB PO BID Furosemide (Lasix), 40 MG PO BID Gabapentin (Neurontin), 100 MG PO TID Isosorbide Mononitrate (Isosorbide Mononitrate ER), 30 MG PO QAM Miconazole Nitrate (Topical) (Miconazole Nitrate), 1 DOSE TOP DIRECTED Nystatin (Topical) (Nystatin), 1 DOSE TOP BID Potassium Chloride (K-Tabs), 1 TAB PO BID Repaglinide (Prandin), 1 MG PO TID Sennosides-Docusate Sodium (Sennalax-S), 1 TAB PO BID Simvastatin (Zocor), 20 MG PO QPM Scheduled PRN Bisacodyl (Bisacodyl), 1 DOSE [place] DIRECTED PRN for Constipation Magnesium Hydroxide (Milk Of Magnesia), 30 ML PO DIRECTED PRN for constipation Polyethylene Glycol 3350 (Miralax), 17 GM PO DIRECTED PRN for Constipation Allergies Coded Allergies: No Known Allergies (Unverified , 05/24/17) Physical Exam Vital Signs Date Time Temp Pulse Resp B/P (MAP) Pulse Ox O2 Delivery O2 Flow Rate FiO2 05/24/17 20:02 61 130/57 98 Nasal Cannula 2.0 05/24/17 19:04 60 136/58 98 Nasal Cannula 2.0 05/24/17 17:21 98 Nasal Cannula 2.0 05/24/17 17:20 62 05/24/17 17:09 36.7 61 18 126/77 92 Room Air Physical Exam Vital signs reviewed. General: Chronically ill-appearing, edentulous, obese, 71 year old female, in no significant distress. Patient has a dry cough. HEENT: No scleral icterus, PERRLA, neck supple. Atraumatic. Cardiovascular: Regular rate and rhythm, no extra sounds. Pulmonary: Clear to auscultation bilaterally, normal work of breathing. Abdomen: Soft, nontender, nondistended, positive bowel sounds. Musculoskeletal: Atraumatic, no peripheral edema. Neurologic: Patient awake alert and oriented x 3. Skin: Warm, dry, no rash Medical Decision & Procedures Laboratory Results Test 05/24/17 17:30 05/24/17 18:04 Estimated Average Glucose 240 mg/dl Hemoglobin A1c 10.0 % (4.5-5.6) Magnesium Level 2.7 mg/dl (1.8-2.4) Total Bilirubin 0.4 mg/dl (0.2-1) Direct Bilirubin < 0.1 mg/dl (0-0.2) Aspartate Amino Transf (AST/SGOT) 11 U/L (15-37) Alanine Aminotransferase (ALT/SGPT) 18 U/L (12-78) Alkaline Phosphatase 74 U/L (45-117) Total Protein 9.3 gm/dl (6.4-8.2) Albumin 3.6 gm/dl (3.4-5.0) Beta-Hydroxybutyric Acid 1.10 mg/dL (0.2-2.81) Thyroid Stimulating Hormone (TSH) 6.250 uIu/ml (0.300-4.500) Urine Color YELLOW Urine Appearance CLEAR (CLEAR) Urine pH 5.5 (4.5-7.5) Urine Specific [place] 1.015 (1.000-1.030) Urine Protein NEG (NEG) Urine Glucose (UA) 3+ (NEG) Urine Ketones NEG (NEG) Urine Occult Blood NEG (NEG) Urine Nitrite POS (NEG) Urine Bilirubin NEG (NEG) Urine Urobilinogen NEG (NEG) Urine Leukocyte Esterase LARGE (NEG) Urine WBC (Auto) >30 /hpf (0-5) Urine RBC (Auto) 0-4 /hpf (0-4) Urine Hyaline Casts (Auto) 0 /lpf (0-5) Urine Epithelial Cells (Auto) 0-5 /lpf (0-5) Urine Bacteria (Auto) 1+ (NEG) Laboratory results per my review. Medications Administered Medications (Trade) Dose Ordered Sig/Jose Route Start Time Stop Time Status Last Admin Dose Admin Sodium Chloride 250 ml @ 999 mls/hr Q16M STAT IV 05/24/17 17:16 05/24/17 17:33 DC 05/24/17 17:16 999 MLS/HR Sodium Chloride 1,000 ml @ 125 mls/hr Q8H STAT IV 05/24/17 17:16 05/24/17 21:21 DC 05/24/17 17:16 125 MLS/HR Insulin Human Regular (novoLIN-R U-100 PER UNIT) 10 units NOW STAT SC 05/24/17 18:27 05/24/17 18:28 DC 05/24/17 18:45 10 UNITS Ceftriaxone Sodium (Rocephin Inj) 1 gm NOW STAT IV 05/24/17 19:35 05/24/17 19:38 DC 05/24/17 19:51 1 GM ECG Indication: other (hyperglycemia) Rate (beats per minute): 63 Rhythm: other (AV paced rhythm) Findings: other (occasional ventricular paced complexes) ED Course 1712: Past medical records reviewed. The patient was evaluated in room A2. A complete history and physical examination was performed. 1715: Ordered NSS 1000 ml @ 125 mls/hr IV, NSS 250 ml @ 999 mls/hr IV. 1826: Ordered Novolin-R U-100 PER UNIT 10 units SC. 1931: Upon reevaluation, the patient is resting comfortably. I discussed laboratory and radiographic results with her and her caregiver. They verbalized agreement of the treatment plan. The patient will be evaluated for further management and care. 1934: Ordered Rocephin Inj 1 gm IV. 1943: I reviewed the patient's case with Dr. María Elena Brannon naturopathic doctor. He will evaluate the patient for further management. Medical Decision Differential diagnosis: Infectious ideology, dehydration, hyperglycemia, medication noncompliance. This patient was evaluated and appeared to be in no significant distress. Fingerstick glucose was performed and reveals a blood sugar of 396. IV access was established and laboratory work was drawn. The patient was hydrated with normal saline solution. Patient did have a chest x-ray as an outpatient. Urinalysis is indicative of infection. She was given 10 units of subcutaneous regular insulin. Patient was given 1 g of IV ceftriaxone. Given her hyperglycemia and UTI, she will be evaluated by the hospitalist service for further management. Medication Reconcilliation Current Medication List: was personally reviewed by me Blood Pressure Screening Patient's blood pressure: Normal blood pressure Consults Time Called: 1939 Consulting Physician: Dr. María Elena Brannon naturopathic doctor Returned Call: 1943 I reviewed the patient's case with Dr. María Elena Brannon naturopathic doctor. He will evaluate the patient for further management. Impression Primary Impression: UTI (urinary tract infection) Additional Impression: Hyperglycemia Scribe Attestation The scribe's documentation has been prepared under my direction and personally reviewed by me in its entirety. I confirm that the note above accurately reflects all work, treatment, procedures, and medical decision making performed by me. Departure Information Dispostion Being Evaluated By Hospitalist Referrals Lola Jean M.D. (PCP) Patient Instructions My [facility] Problem Qualifiers Primary Impression: UTI (urinary tract infection) Urinary tract infection type: site unspecified Hematuria presence: without hematuria Qualified Codes: N39.0 - Urinary tract infection, site not specified
[2017-05-24 17:53] LABS: BASO % 0.4 %; BASO ABS # 0.04 K/uL (0-0.2); COMPLETE YES; EOS % 3.5 %; HEMATOCRIT 39.6 % (37-47); IG% 0.3 %; LYMPH % 7.9 %; LYMPH ABS # 0.79 K/uL (1.2-3.4); MEAN CORPUSCULAR HEMOGLOBIN 28.8 pg (25-34); MEAN CORPUSCULAR HGB CONC 30.3 g/dl (32-36); MONO % 6.9 %; PLATELET COUNT 197 K/uL (130-400); RED BLOOD COUNT 4.17 M/uL (4.2-5.4); WHITE BLOOD COUNT 9.99 K/uL (4.8-10.8)
[2017-05-24] MEDS ORDERED: NYST100033 TOP (18:02)
[2017-05-24] MEDS ORDERED: MICO1POW8 TOP (18:02)
[2017-05-24 18:16] LABS: URINE APPEARANCE CLEAR (CLEAR); URINE BILIRUBIN NEG (NEG); URINE COLOR YELLOW; URINE EPITHELIAL CELL AUTO 0-5 /lpf (0-5); URINE NITRITE POS (NEG); URINE PH 5.5 (4.5-7.5); URINE SPECIFIC GRAVITY 1.015 (1.000-1.030); UROBILINOGEN NEG (NEG); ZZUR CULT IF INDIC CLEAN CATCH YES
[2017-05-24 18:25] LABS: ALKALINE PHOSPHATASE 74 U/L (45-117); ALT/SGPT 18 U/L (12-78); AST/SGOT 11 U/L (15-37); BLOOD UREA NITROGEN 69 mg/dl (7-18); BUN/CREATININE RATIO 31.9 (10-20); CALCIUM 10.3 mg/dl (8.5-10.1); CARBON DIOXIDE 33 mmol/L (21-32); CHLORIDE 95 mmol/L (98-107); CREATININE 2.15 mg/dl (0.60-1.20); GLUCOSE 392 mg/dl (70-99); MAGNESIUM 2.7 mg/dl (1.8-2.4); POTASSIUM 4.8 mmol/L (3.5-5.1); SODIUM 131 mmol/L (136-145)
[2017-05-24] MEDS ORDERED: NovoLIN-R INSULIN PER UNIT CHARGE SC STA (18:27)
[2017-05-24 18:29] LABS: MANUAL MICROSCOPIC REQUIRED? NO; REVIEW REQ? NO
[2017-05-24] MEDS ORDERED: CEFTRIAXONE SOD INJ 1 GM ADDVIAL IV STA (19:35)
[2017-05-24] MEDS ORDERED: INSULIN GLARGINE SOLOSTAR 100 UNITS/ML 3 ML PEN SC STA (21:14)
[2017-05-24] MEDS ORDERED: GLUCOSE 10 TABS/TUBE PO PRN (21:15)
[2017-05-24] MEDS ORDERED: GLUCAGON FOR INJ 1 MG VIAL SQ PRN (21:15)
[2017-05-24] MEDS ORDERED: PROCHLORPERAZINE INJ 5 MG in SYRINGE 4 ML IV PRN (21:15)
[2017-05-24] MEDS ORDERED: HYDROmorphone INJ 0.5 MG/0.5 ML SYR IV PRN (21:15)
[2017-05-24] MEDS ORDERED: DEXTROSE 50% 50 ML SYR IV PRN (21:15)
[2017-05-24] MEDS ORDERED: GLUCOSE 40% GEL 15 GM TUBE PO PRN (21:15)
[2017-05-24] MEDS ORDERED: CARVEDILOL 3.125 MG TAB PO STA (21:38)
[2017-05-24] MEDS ORDERED: INSULIN ASPART 100 UNITS/ML 3 ML PEN SC STA (21:44)
--- NOTE | 2017-05-24 22:06 | DIAGNOSTIC IMAGING REPORT ---
HEAD WITHOUT CONTRAST (CT) CT DOSE: 537.48 mGy.cm HISTORY: Mental status change encephalopathy TECHNIQUE: Multiaxial CT images of the head were performed without the use of intravenous contrast. A dose lowering technique was utilized adhering to the principles of ALARA. Comparison: None. Findings: The paranasal sinuses and mastoid air cells are clear. The calvarium and skull base are intact. The ventricles and sulci are within normal limits. There is no mass, hematoma, midline shift, or acute infarct. Age-related chronic small vessel change Impression: No acute intracranial abnormality. Age-related atrophy and chronic small vessel change The above report was generated using voice recognition software. It may contain grammatical, syntax or spelling errors. Electronically signed by: Sen Magallon M.D. 05/24/2017 10:05 PM Dictated Date/Time: 05/24/2017 10:04 PM
[2017-05-24] MEDS ORDERED: APIXABAN 2.5 MG TAB PO ONE (22:29)
[2017-05-24 22:43] VITALS: BP 137/76; PULSE 61; TEMP 36.4; O2SAT 95
--- NOTE | 2017-05-24 22:58 | HISTORY & PHYSICAL EXAMINATION ---
[place] DATE OF ADMISSION: 05/24/2017 PRIMARY CARE DOCTOR: Dr. Jean. CHIEF COMPLAINT: Leg wounds as per px hyperglycemia as per records, lethargy as per guardian. 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 Limited history from patient secondary to some disorientation. Medical history significant for chronic systolic heart failure secondary to ischemic cardiomyopathy, EF of 25% as per records, CAD status post stenting, hx LBBB, AFib status post pacemaker on Eliquis, PVD, DM2 on oral meds, hypertension, chronic kidney disease (baseline creatinine 1.6) chronic anemia (baseline hemoglobin of 10), intellectual impairment as per records, chronic venous stasis ulcers. Recent confinement January 2017 for right lower extremity cellulitis. 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 Patient evaluated at wound care center this morning. Underwent debridement of left leg. Patient subsequently seen at PCP's office for dry cough sx. Denies aspiration. No chest pain no shortness of breath. Patient denies abdominal pain/diarrhea/dysuria symptoms Chest x-ray clean. Patient noted to be hyperglycemic at PCPs office. BSG 500s. Px brought to the Emergency Room. BSG noted to be 500. Patient given regular insulin in the ER and IV ceftriaxone for possible UTI. Improved mentation now as per guardian although patient still not at baseline. MEDICAL HISTORY: As above. SURGERIES: She has had ICD/pacemaker placement, cholecystectomy, arthroplasty, breast cyst removal. HOME MEDICATIONS: Include Cordarone, Eliquis, aspirin, bisacodyl, Coreg, vitamin D, digoxin, furosemide, Lasix, Neurontin, silver nitrate, magnesium oxide, miconazole, nystatin, MiraLax, K tabs, Prandin, simvastatin. ALLERGIES: No drug allergies. FAMILY HISTORY: There is a family history of heart disease. PERSONAL AND SOCIAL HISTORY: Nonsmoker, no chronic intake of alcoholic beverages. Lives at a personal chcf - [facility]. 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 REVIEW OF SYSTEMS: Could not be reliably obtained. PHYSICAL EXAMINATION: VITAL SIGNS: Blood pressure was noted to be 136/58, pulse rate 60, RR 18, temperature 36.7, sats 98 on room air. GENERAL: Noted to be obese, disoriented, but coherent. No respiratory distress. SKIN: Pallor, warm. HEENT: Pale palpebral conjunctivae. No ptosis. Dry buccal mucosa. NECK: Short neck. No JVD. Supple. CHEST: Decreased breath sounds. No tenderness. HEART: Regular rate and rhythm. Systolic murmur. ABDOMEN: Some distention, nontender. EXTREMITIES: Leg wraps in the lower extremity noted. No tenderness. NEUROLOGIC: Disoriented, but coherent. LABS: Hemoglobin was noted to be 12, hematocrit noted to be 39.6, white cell count 9.9, platelets 197. Sodium noted to be 131, potassium 4.8, chloride 95, CO2 30, BUN 69, creatinine 2.15, glucose 392, calcium 10.3. Normal anion gap Negative serum ketones Outpatient digoxin 0.6 Hemoglobin A1c 6.6 (11/2016) UA, nitrite positive urine. CT head no acute pathology ASSESSMENT: 1. Encephalopathy Some improvement in mentation after initial ER intervention multifactorial : Hyperglycemia (DM2 on oral meds, well controlled as of recent HgA1c) Clinical dehydration. Hypercalcemia, ARF on CRI Urinary tract infection, no sepsis. 2. Hypertension, stable. 3. Chronic systolic heart failure secondary to ischemic cardiomyopathy (EF 30% as per records) - Patient on the dry side. 4. CAD sp CABG 5. AF sp PPM, paced rhythm on Eliquis. 6. Chronic anemia, hemoglobin better than baseline Likely due to hemoconcentration secondary to dehydration. 7. Chronic LE venous stasis ulcers sp recent debridement at wound care center. 8. New systolic murmur 9. Intellectual impairment as per records PLAN: GMF follow urine cultures.Cefepime IVF, hold home diuretics for now until creatinine at baseline Basal insulin, ISS, BG goal 140-180. Check hemoglobin A1c. TTE RE systolic murmur PT OT eval DVT prophylaxis. Eliquis. DNR as per as per patient's previous wishes. MTDD
[2017-05-24] MEDS ORDERED: SODIUM CHLORIDE 0.9% 500ML 500 ML IV ONE (23:00)
[2017-05-24] MEDS ORDERED: CEFEPIME IV 2000 MG in DEXTROSE 5% 100ML IV SCH (23:00)
[2017-05-25 00:15] VITALS: O2SAT 95
[2017-05-25] MEDS: ACETAMINOPHEN 325 MG TAB PO PRN ×3 (00:21→22:07)
[2017-05-25 01:00] VITALS: BP 137/76; PULSE 61; TEMP 36.4; BMI 42.4
[2017-05-25 07:01] LABS: ESTIMATED AVERAGE GLUCOSE 240 mg/dl; HA1C FLAG Normal (Normal)
[2017-05-25 07:02] VITALS: BP 153/71; PULSE 77; TEMP 36.7; O2SAT 99
[2017-05-25 07:51] LABS: BASO % 0.6 %; BASO ABS # 0.04 K/uL (0-0.2); COMPLETE YES; EOS % 5.4 %; HEMATOCRIT 39.6 % (37-47); IG% 0.3 %; LYMPH % 9.3 %; LYMPH ABS # 0.66 K/uL (1.2-3.4); MEAN CELL VOLUME 95.9 fL (80-100); MEAN CORPUSCULAR HEMOGLOBIN 28.8 pg (25-34); MEAN CORPUSCULAR HGB CONC 30.1 g/dl (32-36); MEAN PLATELET VOLUME 9.2 fL (7.4-10.4); MONO % 8.9 %; NEUT % 75.5 %; PLATELET COUNT 189 K/uL (130-400); RED BLOOD COUNT 4.13 M/uL (4.2-5.4); WHITE BLOOD COUNT 7.08 K/uL (4.8-10.8)
[2017-05-25] MEDS ORDERED: CEFEPIME CONSULT ACTIVE PRN ×2 (08:00)
[2017-05-25 08:07] LABS: BUN/CREATININE RATIO 30.6 (10-20); CALCIUM 9.7 mg/dl (8.5-10.1); CREATININE 1.94 mg/dl (0.60-1.20); POTASSIUM 4.8 mmol/L (3.5-5.1)
[2017-05-25] MEDS: ASPIRIN 81 MG CHEW PO SCH (08:26)
[2017-05-25] MEDS: GABAPENTIN 100 MG CAP PO SCH ×3 (08:26→21:15)
[2017-05-25] MEDS: DOCUSATE SODIUM/SENNA 50/8.6MG TAB PO SCH ×2 (08:26→21:15)
[2017-05-25] MEDS: APIXABAN 2.5 MG TAB PO SCH ×2 (08:26→21:14)
[2017-05-25] MEDS: ISOSORBIDE MONONITRATE 30 MG TABCR PO SCH (08:26)
[2017-05-25] MEDS: FERROUS SULFATE 325 MG TAB PO SCH ×2 (08:27→21:15)
[2017-05-25] MEDS: CARVEDILOL 6.25 MG TAB PO SCH ×2 (08:27→21:14)
[2017-05-25] MEDS: AMIODARONE 200 MG TAB PO SCH (08:27)
[2017-05-25] MEDS: INSULIN ASPART 100 UNITS/ML 3 ML PEN SC SCH ×5 (08:33→21:21)
[2017-05-25] MEDS ORDERED: NURSING DECISION MEDICATION ORDER SCH (10:00)
--- NOTE | 2017-05-25 10:26 | Clinical Documentation Query ---
RHONDA Pichardo : CLINICAL DOCUMENTATION QUERY Patient is a 71 year old female admitted for evaluation and treatment of lethargy, hyperglycemia, and leg wounds. H&P notes a history of CKD, not otherwise specified. Estimated GFR range from 09/20/16 to present of 21-34 ml/min. Please clarify as clinically appropriate. Thank you. In your clinical opinion is this patient being managed for: (x ) Chronic kidney disease, stage 3-4 ( ) Not Agree ( ) Other explanation of clinical findings (Please Explain) ( ) Unable to determine (Please Define) ( ) Need to Discuss The medical record reflects the following clinical findings, treatment, and risk factors. Clinical Indicators: As above Treatment: Serial chemistries, IVF Risk Factors: Age, chronic systolic CHF, CAD, DM type 2 Please clarify and document your clinical opinion in the progress notes and discharge summary. Terms such as "probable", "suspected", "likely", "questionable", "possible", or "still to be ruled out" are acceptable. IF IN AGREEMENT, YOU MUST DOCUMENT ABOVE DIAGNOSTIC STATEMENT IN DAILY PROGRESS NOTES AND DISCHARGE SUMMARY. This document is not part of the patient's record. Thank You, Aristides Metzger, RN [phone]
[2017-05-25] MEDS ORDERED: PERFLUTREN LIPID MICROSPHERE (DEFINITY) IV ONE (11:13)
[2017-05-25] MEDS ORDERED: MICONAZOLE NITRATE POWDER 43 GM EXT PRN (11:15)
--- NOTE | 2017-05-25 11:20 | Progress Note ---
Internal Med Progress Note Date of Service: May 25, 2017. Provider Documentation: SUBJECTIVE: pt found awake and alert , sitting up on bed conversing no confusion noted does not recall how she came to ER -thinks that her caregiver at Personal detention brought her to Hospital as she was not feeling well mentions she feels absolutely fine now wants to know when she can return back to her home no fever or chills OBJECTIVE: Vital Signs-as noted below Exam: General-awake and alert ,no sign of distress conversing Eyes-sclera non icteric ENT-poor dentition Neck-trachea midline , no thyromegaly Lungs-diminished, no audible rales or wheeze Heart-regular S1/S2 Abdomen-soft, distended Extremities-bilateral multiple chronic venous stasis wound -, wound base clear , no purulent drainage Neuro-AAO x3 no focal deficit , Lab data as noted below. ASSESSMENT & PLAN: CONFUSION /METABOLIC ENCEPHALOPATHY : -multifactorial -Hyperglycemia , JASON , UTI CT head with out contrast -no acute change -mental status gradually improved to baseline -continue glycemic management with insulin , IV hydration , tx for UTI POORLY CONTROLLED TYPE 2 DM /HYPERGLYCEMIA : -Presented with BSG > 500 -normal AG -possible due to infection /UTI -basal Lantus /SSI added , IV hydration , Abx tx for UTI -Hb A1c 10 -pharmacy consulted for glycemic management JASON on CKD stage 3 : ATN due to above -dehydration /hyperglycemia /UTI cont IVF avoid diuretics /nephrotoxins monitor daily BMP UTI : urine culture + E .coli on IV Cefepime , abx will be adjusted /transitioned to PO once sensitivity available CHRONIC AFIB : on Eliquis cont Amiodarone , Coreg , Digoxin BILATERAL CHRONIC VENOUS STASIS ULCER : follows with Wound care clinic s/p recent debridement appreciate input form wound care local wound care with [facility] /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 DVT PROPHYLAXIS on Eliquis DISPOSITION lives at personal intermediate PT/OT eval prior to discharge Vital Signs: Date Time Temp Pulse Resp B/P (MAP) Pulse Ox O2 Delivery O2 Flow Rate FiO2 05/25/17 22:47 36.5 59 18 118/65 (82) 95 Room Air 05/25/17 16:22 64 05/25/17 16:00 Room Air 05/25/17 15:05 36.3 64 20 115/66 (82) 90 Room Air 05/25/17 08:30 Nasal Cannula 2.0 05/25/17 07:02 36.7 77 18 153/71 (98) 99 Nasal Cannula 2.0 05/25/17 01:00 36.4 61 17 137/76 Room Air 05/25/17 00:15 95 Nasal Cannula 2.0 Lab Results: Results Past 24 Hours Test 05/25/17 07:30 05/25/17 07:56 05/25/17 11:52 05/25/17 16:01 Range/Units White Blood Count 7.08 4.8-10.8 K/uL Red Blood Count 4.13 4.2-5.4 M/uL Hemoglobin 11.9 12.0-16.0 g/dL Hematocrit 39.6 37-47 % Mean Corpuscular Volume 95.9 80-100 fL Mean Corpuscular Hemoglobin 28.8 25-34 pg Mean Corpuscular Hemoglobin Concent 30.1 32-36 g/dl Platelet Count 189 130-400 K/uL Mean Platelet Volume 9.2 7.4-10.4 fL Neutrophils (%) (Auto) 75.5 % Lymphocytes (%) (Auto) 9.3 % Monocytes (%) (Auto) 8.9 % Eosinophils (%) (Auto) 5.4 % Basophils (%) (Auto) 0.6 % Neutrophils # (Auto) 5.35 1.4-6.5 K/uL Lymphocytes # (Auto) 0.66 1.2-3.4 K/uL Monocytes # (Auto) 0.63 0.11-0.59 K/uL Eosinophils # (Auto) 0.38 0-0.5 K/uL Basophils # (Auto) 0.04 0-0.2 K/uL RDW Standard Deviation 65.9 36.4-46.3 fL RDW Coefficient of Variation 19.0 11.5-14.5 % Immature Granulocyte % (Auto) 0.3 % Immature Granulocyte # (Auto) 0.02 0.00-0.02 K/uL Sodium Level 137 136-145 mmol/L Potassium Level 4.8 3.5-5.1 mmol/L Chloride Level 99 98-107 mmol/L Carbon Dioxide Level 33 21-32 mmol/L Anion Gap 6.0 3-11 mmol/L Blood Urea Nitrogen 59 7-18 mg/dl Creatinine 1.94 0.60-1.20 mg/dl Est Creatinine Clear Calc Drug Dose 33.9 ml/min Estimated GFR () 29.0 Estimated GFR (Non- 25.1 BUN/Creatinine Ratio 30.6 10-20 Random Glucose 216 70-99 mg/dl Calcium Level 9.7 8.5-10.1 mg/dl Bedside Glucose 225 326 298 70-90 mg/dl Test 05/25/17 16:41 05/25/17 20:17 Range/Units Bedside Glucose 272 250 70-90 mg/dl
[2017-05-25] MEDS: POLYETHYLENE (MIRALAX) 17 GM PACK PO PRN (12:47)
[2017-05-25] MEDS ORDERED: PHARMACY GLYCEMIC MGMT CONSULT PRN (13:27)
[2017-05-25 14:46] VITALS: BMI 42.4
--- NOTE | 2017-05-25 14:51 | ECHOCARDIOGRAM REPORT ---
*NOTICE TO RECEIVING [employer] [employer]ENCY This information is strictly Confidential and protected under [place] law. [place] law prohibits you from making any further disclosure of this information unless further disclosure is expressly permitted by the written consent of the person to whom it pertains or is authorized by law. A general authorization for the release of medical or other information is not sufficient for this purpose. Hospital accepts no responsibility if the information is made available to any other person, INCLUDING THE PATIENT. Interpretation Summary * Name: ADENIKE COLORADO Study Date: 05/25/2017 10:09 AM BP: 153/71 mmHg * Patient Location: .[id number]\W451\S\2 HR: 77 * : 1945 (M/d/yyyy) Gender: Female Height: 66 in * Age: 71 yrs Ethnicity: [place] Weight: 238 lb * Ordering Physician: Mono Ring * Referring Physician: Self, Referred * * BSA: 2.2 m2 * -- Conclusions -- * The left ventricular wall motion is normal. * Left ventricular systolic function is normal. * The qualitative LV ejection fraction=50% * There is a pacemaker lead in the right ventricle. * Aortic valve sclerosis moderate, without significant aortic valvular stenosis. * Mild aortic regurgitation. * There is moderate mitral annular calcification. * There is no mitral valve stenosis. * Significant mitral regurgitation is absent. * Diastolic dysfunction, Grade II (pseudonormalization pattern). Procedure Details * A contrast injection of Definity was performed to improve assessment of LV function. * Contrast was injected into an intravenous site in the right arm. * One vial of Definity ultrasound contrast was diluted in normal saline to a total volume of 10 ml. A total of '1' ml of solution was administered during imaging. * Lot # [id number] of Definity utilized for procedure. * Expiration date JUN 13. * The attending nurse who injected the contrast agent was OSOIRO PANIAGUA RN. * A complete two-dimensional transthoracic echocardiogram was performed (2D, M-mode, Doppler and color flow Doppler). Left Ventricle * The left ventricle is normal in size. * There is normal left ventricular wall thickness. * Left ventricular systolic function is normal. * The qualitative LV ejection fraction=50% * The left ventricular wall motion is normal. Right Ventricle * The right ventricle is normal size. * There is a pacemaker lead in the right ventricle. * The right ventricular systolic function is normal as assessed by tricuspid annular plane systolic excursion (TAPSE) (normal >1.5 cm). Atria * The left atrial size is normal. * Right atrial size is normal. * There is no evidence of atrial septal defect, but resolution does not allow assessment for a patent foramen ovale. Mitral Valve * There is moderate mitral annular calcification. * There is no mitral valve stenosis. * Significant mitral regurgitation is absent. Tricuspid Valve * The tricuspid valve is normal. * There is no tricuspid stenosis. * Significant tricuspid regurgitation is absent. * Doppler findings do not suggest pulmonary hypertension. Aortic Valve * The aortic valve is trileaflet. * Aortic valve sclerosis moderate, without significant aortic valvular stenosis. * Aortic stenosis is absent. * Mild aortic regurgitation. Pulmonic Valve * The pulmonary valve is not well seen, but the Doppler examination is normal without significant regurgitation or stenosis. Great Vessels * The aortic root and proximal ascending aorta are normal sized. Pericardium/Pleural * There is no pericardial effusion. Great Vessels * Normal inferior vena cava diameter and respiratory variation suggests normal central venous pressure. Left Ventricular Diastolic Function * Diastolic dysfunction, Grade II (pseudonormalization pattern). MMode 2D Measurements and Calculations IVSd 1.1 cm IVSs 1.7 cm LVIDd 4.7 cm LVIDs 3.5 cm LVPWd 1.7 cm LVPWs 2.0 cm IVS/LVPW 0.63 FS 25.6 % EDV(Teich) 100.4 ml ESV(Teich) 49.8 ml EF(Teich) 50.4 % EDV(cubed) 101.3 ml ESV(cubed) 41.8 ml EF(cubed) 58.8 % % IVS thick 51.0 % % LVPW thick 16.8 % LV mass(C)d 266.6 grams LV mass(C)dI 123.8 grams/m\S\2 LV mass(C)s 270.6 grams LV mass(C)sI 125.6 grams/m\S\2 SV(Teich) 50.6 ml SI(Teich) 23.5 ml/m\S\2 SV(cubed) 59.5 ml SI(cubed) 27.6 ml/m\S\2 Ao root diam 3.0 cm Ao root area 7.2 cm\S\2 LA dimension 3.8 cm LA/Ao 1.3 LVAd ap4 23.7 cm\S\2 LVLd ap4 7.2 cm EDV(MOD-sp4) 62.9 ml EDV(sp4-el) 66.5 ml LVAs ap4 14.0 cm\S\2 LVLs ap4 6.1 cm ESV(MOD-sp4) 26.0 ml ESV(sp4-el) 27.0 ml EF(MOD-sp4) 58.7 % EF(sp4-el) 59.3 % LVAd ap2 30.0 cm\S\2 LVLd ap2 7.6 cm EDV(MOD-sp2) 95.9 ml EDV(sp2-el) 99.8 ml LVAs ap2 18.4 cm\S\2 LVLs ap2 6.5 cm ESV(MOD-sp2) 42.7 ml ESV(sp2-el) 44.3 ml EF(MOD-sp2) 55.5 % EF(sp2-el) 55.7 % LVLd %diff 6.4 % EDV(MOD-bp) 81.0 ml LVLs %diff 5.5 % ESV(MOD-bp) 34.4 ml EF(MOD-bp) 57.5 % SV(MOD-sp4) 36.9 ml SI(MOD-sp4) 17.2 ml/m\S\2 SV(MOD-sp2) 53.2 ml SI(MOD-sp2) 24.7 ml/m\S\2 SV(MOD-bp) 46.6 ml SI(MOD-bp) 21.6 ml/m\S\2 SV(sp4-el) 39.4 ml SI(sp4-el) 18.3 ml/m\S\2 SV(sp2-el) 55.6 ml SI(sp2-el) 25.8 ml/m\S\2 Doppler Measurements and Calculations MV E max maxine 111.4 cm/sec MV A max maxine 60.4 cm/sec MV E/A 1.8 MV dec time 0.31 sec Ao V2 max 190.7 cm/sec Ao max PG 14.5 mmHg Ao max PG (full) 7.7 mmHg Ao V2 mean 128.9 cm/sec Ao mean PG 7.7 mmHg Ao mean PG (full) 3.9 mmHg Ao V2 VTI 40.0 cm LV V1 max PG 6.9 mmHg LV V1 mean PG 3.8 mmHg LV V1 max 130.9 cm/sec LV V1 mean 90.2 cm/sec LV V1 VTI 28.0 cm SV(Ao) 286.5 ml SI(Ao) 133.0 ml/m\S\2
[2017-05-25 15:05] VITALS: BP 115/66; PULSE 64; TEMP 36.3; O2SAT 90
[2017-05-25] MEDS ORDERED: INSULIN HUMAN REGULAR PER UNIT 10 UNITS in SYRINGE 9.9 ML IV ONE (16:00)
--- NOTE | 2017-05-25 16:11 | Pharmacy Progress Note ---
Glycemic Control Intl Consult Date of Service May 25, 2017. Scope Glycemic Pharmacist consulted by Dr Hauser on 05/25/17 for glycemic control and to write orders per [facility] inpatient glycemic control protocol Objective Weight (Kilograms): 119.100 Accuchecks BSG (last 24hrs): Test 05/24/17 17:19 05/24/17 17:30 05/24/17 19:53 05/24/17 22:11 Bedside Glucose 396 mg/dl (70-90) 374 mg/dl (70-90) 284 mg/dl (70-90) Random Glucose 392 mg/dl (70-99) Test 05/25/17 07:30 05/25/17 07:56 05/25/17 11:52 Random Glucose 216 mg/dl (70-99) Bedside Glucose 225 mg/dl (70-90) 326 mg/dl (70-90) Laboratory Data (last 24hrs) Test 05/24/17 17:30 05/25/17 07:30 Anion Gap 3.0 mmol/L 6.0 mmol/L BUN/Creatinine Ratio 31.9 30.6 Blood Urea Nitrogen 69 mg/dl 59 mg/dl Creatinine 2.15 mg/dl 1.94 mg/dl Hemoglobin A1c 10.0 % Potassium Level 4.8 mmol/L 4.8 mmol/L Sodium Level 131 mmol/L 137 mmol/L White Blood Count 9.99 K/uL 7.08 K/uL Red Blood Count 4.17 M/uL 4.13 M/uL Hemoglobin 12.0 g/dL 11.9 g/dL Hematocrit 39.6 % 39.6 % Mean Corpuscular Volume 95.0 fL 95.9 fL Mean Corpuscular Hemoglobin 28.8 pg 28.8 pg Mean Corpuscular Hemoglobin Concent 30.3 g/dl 30.1 g/dl Platelet Count 197 K/uL 189 K/uL Mean Platelet Volume 9.0 fL 9.2 fL Neutrophils (%) (Auto) 81.0 % 75.5 % Lymphocytes (%) (Auto) 7.9 % 9.3 % Monocytes (%) (Auto) 6.9 % 8.9 % Eosinophils (%) (Auto) 3.5 % 5.4 % Basophils (%) (Auto) 0.4 % 0.6 % Neutrophils # (Auto) 8.09 K/uL 5.35 K/uL Lymphocytes # (Auto) 0.79 K/uL 0.66 K/uL Monocytes # (Auto) 0.69 K/uL 0.63 K/uL Eosinophils # (Auto) 0.35 K/uL 0.38 K/uL Basophils # (Auto) 0.04 K/uL 0.04 K/uL HbA1c Test 05/24/17 17:30 Hemoglobin A1c 10.0 % (4.5-5.6) H Recent Pertinent Medications Outpatient Anti-diabetic Regimen: * Prandin 1 mg PO TID * A1c = 10 % 05/24/17 The patient is currently receiving: * Basal insulin: Lantus 10 units every 24 hours * Correctional Insulin: Novolog Correction per scale ACHS Goal Range: Low 100 mg/dL - High 140 mg/dL Correction Factor: 15 mg/dL/unit * Prandial insulin: Per carb ratio of 1 unit per 5 grams CHO consumed * Oral Agents: on hold Assessment & Plan ASSESSMENT: * 71 yr old female admitted with severe hyperglycemia, poor outpatient control ( A1c 10%). * Pt is maintained on oral antidiabetic agents as an outpatient * Will hold oral agents for admission and utilize SQ basal bolus insulin regimen which is the recommended regimen for inpatient glycemic control. * Will initiate weight based insulin dosing for insulin anish patient and titrate based on BSG trends. * Will increase goal range due to elevated A1c - patient may experience hypoglycemia at a higher threshold. * Will give a one time IV regular insulin bolus for BSG > 300 mg/dL PLAN FOR INPATIENT GLYCEMIC CONTROL: * Holding outpatient oral diabetes medications * Regular IV insulin 10 unit bolus x 1 * Basal insulin * Lantus 24 units SQ now * Lantus 0-20 units SQ BID * Correctional Insulin with NOVOLOG per scale ACHS + 00 and 04 checks * Goal Range: Low 120 mg/dL - High 160 mg/dL * Correction Factor: 15 mg/dL/unit * Nutritional / Prandial insulin per carb ratio of 1 unit per 5 grams CHO consumed * Please note that the plan above was derived based on current level of insulin resistance and hospital stress. These recommendations are appropriate for inpatient admission only. Plan of care upon discharge will need to be reassessed to avoid potential outpatient hypo/hyperglycemia. Thank you.
[2017-05-25] MEDS: DIGOXIN 0.125 MG TAB PO SCH (16:22)
[2017-05-25] MEDS ORDERED: INSULIN GLARGINE SOLOSTAR 100 UNITS/ML 3 ML PEN SC ONE (17:00)
[2017-05-25] MEDS ORDERED: INSULIN GLARGINE SOLOSTAR 100 UNITS/ML 3 ML PEN SC SCH (21:00)
[2017-05-25] MEDS: SIMVASTATIN 20 MG TAB PO SCH (21:15)
[2017-05-25] MEDS ORDERED: CEFTRIAXONE SOD INJ 1 GM in DEXTROSE 5% ADD-VANTAGE 50ML 50 ML IV SCH (22:00)
[2017-05-25] MEDS ORDERED: CEFEPIME IV 1,000 MG in SYRINGE 0 ML IV SCH (22:00)
[2017-05-25] MEDS ORDERED: CEFEPIME IV 2,000 MG in SYRINGE 7.5 ML IV SCH (22:00)
[2017-05-25] MEDS ORDERED: CEFEPIME IV 500 MG in SYRINGE 0 ML IV SCH (22:00)
[2017-05-25 22:47] VITALS: BP 118/65; PULSE 59; TEMP 36.5; O2SAT 95
[2017-05-25] MEDS: TRAMADOL HCL 50 MG TAB PO PRN (23:22)
[2017-05-26] MEDS: INSULIN ASPART 100 UNITS/ML 3 ML PEN SC SCH ×6 (00:12→22:00)
[2017-05-26 07:15] VITALS: BP 116/71; PULSE 60; TEMP 36.4; O2SAT 91
[2017-05-26 07:16] LABS: CALCIUM 9.6 mg/dl (8.5-10.1); CREATININE 1.92 mg/dl (0.60-1.20); POTASSIUM 4.4 mmol/L (3.5-5.1)
[2017-05-26] MEDS: APIXABAN 2.5 MG TAB PO SCH ×2 (08:00→20:24)
[2017-05-26] MEDS: GABAPENTIN 100 MG CAP PO SCH ×3 (08:01→20:23)
[2017-05-26] MEDS: FERROUS SULFATE 325 MG TAB PO SCH ×2 (08:01→20:23)
[2017-05-26] MEDS: DOCUSATE SODIUM/SENNA 50/8.6MG TAB PO SCH ×2 (08:01→20:23)
[2017-05-26] MEDS: CARVEDILOL 6.25 MG TAB PO SCH ×2 (08:01→20:24)
[2017-05-26] MEDS: ISOSORBIDE MONONITRATE 30 MG TABCR PO SCH (08:01)
[2017-05-26] MEDS: AMIODARONE 200 MG TAB PO SCH (08:02)
[2017-05-26] MEDS: ASPIRIN 81 MG CHEW PO SCH (08:04)
[2017-05-26] MEDS: INSULIN GLARGINE SOLOSTAR 100 UNITS/ML 3 ML PEN SC SCH ×2 (08:39→20:20)
--- NOTE | 2017-05-26 10:19 | Pharmacy Progress Note ---
Pharmacy Glycemic Short Note 2 Date of Service May 26, 2017. Test 05/25/17 11:52 05/25/17 16:01 05/25/17 16:41 05/25/17 20:17 Bedside Glucose 326 mg/dl (70-90) 298 mg/dl (70-90) 272 mg/dl (70-90) 250 mg/dl (70-90) Test 05/26/17 03:59 05/26/17 06:18 05/26/17 07:26 Bedside Glucose 191 mg/dl (70-90) 194 mg/dl (70-90) Random Glucose 184 mg/dl (70-99) OUTPATIENT ANTIDIABETIC REGIMEN: * Praindin 1mg PO TID ASSESSMENT: * Blood sugars remained in 200s yesterday, even with IV dose of insulin and accuchecks overnight, blood sugar down under 200 today. * Patient requires increase in both Lantus and CF and CR. PLAN FOR INPATIENT GLYCEMIC CONTROL: * Hold outpatient oral diabetes medications * INCREASE Basal insulin * Lantus SQ BID * 0 units for BSG < 100mg/dl * 20 units for BSG 100-180mg/dl * 30 units for BSG > 180mg/dl * Bolus insulin * NovoLog per scale ACHS or Q6hrs while NPO and overnight while titrating insulin doses * Goal Range: Low 120 mg/dL - High 150 mg/dL for A1c 10% * TIGHTEN: Correction Factor: 12 mg/dL/unit * TIGHTEN: Nutritional / Prandial insulin per carb ratio of 1 unit per 4 grams CHO consumed PLAN FOR DISCHARGE: * Recommend starting Lantus for A1c 10% * Call pharmacy for more detailed recommendations upon discharge
[2017-05-26] MEDS ORDERED: INSULIN HUMAN REGULAR IV BOLUS 3 UNIT in SYRINGE 0 ML IV SCH (13:00)
[2017-05-26] MEDS: INSULIN REGULAR 250 UNITS in SODIUM CHLORIDE 0.9% 250ML 250 ML IV SCH ×11 (13:10→23:13)
[2017-05-26 16:06] VITALS: BP 118/70; PULSE 62; TEMP 36.5; O2SAT 95
[2017-05-26] MEDS: DIGOXIN 0.125 MG TAB PO SCH (16:18)
[2017-05-26] MEDS: ACETAMINOPHEN 325 MG TAB PO PRN (20:30)
[2017-05-26] MEDS: POLYETHYLENE (MIRALAX) 17 GM PACK PO PRN (20:30)
[2017-05-26 20:49] VITALS: Ht 167.6 cm; Wt 119.1 kg
--- NOTE | 2017-05-26 20:54 | Progress Note ---
Internal Med Progress Note Date of Service: May 26, 2017. Provider Documentation: SUBJECTIVE: offers no complain no confusion ,no fever or chills still requiring IV insulin infusion OBJECTIVE: Vital Signs-as noted below Exam: General-awake and alert ,no sign of distress conversing Eyes-sclera non icteric ENT-poor dentition Neck-trachea midline , no thyromegaly Lungs-diminished, no audible rales or wheeze Heart-regular S1/S2 Abdomen-soft, distended Extremities-bilateral multiple chronic venous stasis wound -, wound base clear , no purulent drainage Neuro-AAO x3 no focal deficit , Lab data as noted below. ASSESSMENT & PLAN: CONFUSION /METABOLIC ENCEPHALOPATHY : resolved, mental status improved to baseline -multifactorial -Hyperglycemia , JASON , UTI CT head with out contrast -no acute change -continue glycemic management with insulin , IV hydration , tx for UTI POORLY CONTROLLED TYPE 2 DM /HYPERGLYCEMIA : -Presented with BSG > 500 -Hb A1c 10 ; increased form prior Hb A1c ~6 on november -pharmacy consulted for glycemic management started on iV insulin infusion given elevated Hba1c > 9 , pt will need to be discharged on insulin discharged Insulin dose ( basal dose and pre meal ) will be determined after goal BSG achieved with IV insulin infusion -appreciate input form diabetic educators JASON on CKD stage 3 : resolved , Cr approx baseline ATN due to above -dehydration /hyperglycemia /UTI avoid diuretics /nephrotoxins UTI : urine culture + E .coli -garcia sensitive Abx change to Po Ciprofloxacin dose adjusted for renal clearance will need 5 days tx CHRONIC AFIB : on Eliquis cont Amiodarone , Coreg , Digoxin BILATERAL CHRONIC VENOUS STASIS ULCER : follows with Wound care clinic s/p recent debridement appreciate input form wound care local wound care with [facility] /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 Vital Signs: Date Time Temp Pulse Resp B/P (MAP) Pulse Ox O2 Delivery O2 Flow Rate FiO2 05/26/17 16:18 62 05/26/17 16:06 36.5 62 20 118/70 (86) 95 Room Air 05/26/17 16:00 Room Air 05/26/17 07:50 Room Air 05/26/17 07:15 36.4 60 16 116/71 (86) 91 Room Air 05/26/17 00:00 Room Air 05/25/17 22:47 36.5 59 18 118/65 (82) 95 Room Air Lab Results: Results Past 24 Hours Test 05/26/17 03:59 05/26/17 06:18 05/26/17 07:26 05/26/17 11:32 Range/Units Bedside Glucose 191 194 379 70-90 mg/dl Sodium Level 138 136-145 mmol/L Potassium Level 4.4 3.5-5.1 mmol/L Chloride Level 99 98-107 mmol/L Carbon Dioxide Level 30 21-32 mmol/L Anion Gap 8.0 3-11 mmol/L Blood Urea Nitrogen 56 7-18 mg/dl Creatinine 1.92 0.60-1.20 mg/dl Est Creatinine Clear Calc Drug Dose 34.3 ml/min Estimated GFR () 29.4 Estimated GFR (Non- 25.4 BUN/Creatinine Ratio 29.0 10-20 Random Glucose 184 70-99 mg/dl Calcium Level 9.6 8.5-10.1 mg/dl Free Thyroxine 1.19 0.80-1.60 ng/dl Free Triiodothyronine 2.81 2.30-4.20 pg/ml Test 05/26/17 14:12 05/26/17 15:04 05/26/17 16:10 05/26/17 17:14 Range/Units Bedside Glucose 330 288 216 163 70-90 mg/dl Test 05/26/17 18:14 05/26/17 19:11 05/26/17 20:14 Range/Units Bedside Glucose 141 184 178 70-90 mg/dl
[2017-05-26] MEDS: SIMVASTATIN 20 MG TAB PO SCH (21:18)
[2017-05-26] MEDS: CIPROFLOXACIN 250 MG TAB PO SCH (21:18)
[2017-05-26] MEDS: TRAMADOL HCL 50 MG TAB PO PRN (22:04)
[2017-05-26 22:57] VITALS: BP 126/73; PULSE 66; TEMP 36.4; O2SAT 95
[2017-05-27] MEDS: INSULIN REGULAR 250 UNITS in SODIUM CHLORIDE 0.9% 250ML 250 ML IV SCH ×4 (02:49→06:29)
[2017-05-27 07:19] VITALS: BP 118/66; PULSE 61; TEMP 36.4; O2SAT 95
[2017-05-27] MEDS: AMIODARONE 200 MG TAB PO SCH (07:29)
[2017-05-27] MEDS: FERROUS SULFATE 325 MG TAB PO SCH ×2 (07:30→20:10)
[2017-05-27] MEDS: DOCUSATE SODIUM/SENNA 50/8.6MG TAB PO SCH ×2 (07:30→20:10)
[2017-05-27] MEDS: CIPROFLOXACIN 250 MG TAB PO SCH ×2 (07:30→20:11)
[2017-05-27] MEDS: APIXABAN 2.5 MG TAB PO SCH ×2 (07:30→20:10)
[2017-05-27] MEDS: ISOSORBIDE MONONITRATE 30 MG TABCR PO SCH (07:30)
[2017-05-27] MEDS: CARVEDILOL 6.25 MG TAB PO SCH ×2 (07:30→20:11)
[2017-05-27] MEDS: GABAPENTIN 100 MG CAP PO SCH ×3 (07:30→20:10)
[2017-05-27] MEDS: ASPIRIN 81 MG CHEW PO SCH (07:34)
[2017-05-27 07:56] LABS: CALCIUM 9.4 mg/dl (8.5-10.1); CREATININE 1.89 mg/dl (0.60-1.20)
[2017-05-27] MEDS: INSULIN ASPART 100 UNITS/ML 3 ML PEN SC SCH ×4 (08:51→20:35)
[2017-05-27] MEDS: INSULIN GLARGINE SOLOSTAR 100 UNITS/ML 3 ML PEN SC SCH ×2 (08:52→20:35)
--- NOTE | 2017-05-27 10:18 | Pharmacy Progress Note ---
Pharmacy Glycemic Short Note 2 Date of Service May 27, 2017. Test 05/26/17 11:32 05/26/17 14:12 05/26/17 15:04 05/26/17 16:10 Bedside Glucose 379 mg/dl (70-90) 330 mg/dl (70-90) 288 mg/dl (70-90) 216 mg/dl (70-90) Test 05/26/17 17:14 05/26/17 18:14 05/26/17 19:11 05/26/17 20:14 Bedside Glucose 163 mg/dl (70-90) 141 mg/dl (70-90) 184 mg/dl (70-90) 178 mg/dl (70-90) Test 05/26/17 21:09 05/26/17 22:13 05/26/17 23:07 05/27/17 00:10 Bedside Glucose 211 mg/dl (70-90) 215 mg/dl (70-90) 235 mg/dl (70-90) 200 mg/dl (70-90) Test 05/27/17 01:04 05/27/17 02:14 05/27/17 02:50 05/27/17 03:11 Bedside Glucose 188 mg/dl (70-90) 133 mg/dl (70-90) 129 mg/dl (70-90) 130 mg/dl (70-90) Test 05/27/17 03:53 05/27/17 04:47 05/27/17 06:50 05/27/17 07:41 Bedside Glucose 118 mg/dl (70-90) 113 mg/dl (70-90) 106 mg/dl (70-90) Random Glucose 98 mg/dl (70-99) OUTPATIENT ANTIDIABETIC REGIMEN: * Prandin 1mg PO TID ASSESSMENT: * Blood sugars well controlled on insulin drip, OK to turn off insulin drip * Insulin drip was running from1.7-5.5 units/hr - will increase Lantus dose to incorporate daily insulin needs * IV Rocephin changed to PO Cipro PLAN FOR INPATIENT GLYCEMIC CONTROL: * Hold outpatient oral diabetes medications * INCREASE Basal insulin * Lantus SQ BID * for BSG < 80mg/dl - HOLD * for BSG < 120mg/dl - 20 units * for BSG 120-180mg/dl - 40 units * for BSG > 180mg/dl - 60 units * Bolus insulin * NovoLog per scale ACHS or Q6hrs while NPO * Goal Range: Low 120 mg/dL - High 150 mg/dL * Correction Factor: 10 mg/dL/unit * Nutritional / Prandial insulin per carb ratio of 1 unit per 4 grams CHO consumed
[2017-05-27] MEDS ORDERED: INSULIN GLARGINE SOLOSTAR 100 UNITS/ML 3 ML PEN SC ONE (12:45)
--- NOTE | 2017-05-27 14:57 | Progress Note ---
Internal Med Progress Note Date of Service: May 27, 2017. Provider Documentation: SUBJECTIVE: feels fine , no fever or chills no discomfort OBJECTIVE: Vital Signs-as noted below Exam: General-awake and alert ,no sign of distress conversing Eyes-sclera non icteric ENT-poor dentition Neck-trachea midline , no thyromegaly Lungs-diminished, no audible rales or wheeze Heart-regular S1/S2 Abdomen-soft, distended Extremities-bilateral multiple chronic venous stasis wound -, wound base clear , no purulent drainage Neuro-AAO x3 no focal deficit , Lab data as noted below. ASSESSMENT & PLAN: CONFUSION /METABOLIC ENCEPHALOPATHY : resolved, mental status improved to baseline at present conversing appropriately -multifactorial -Hyperglycemia , JASON , UTI CT head with out contrast -no acute change - POORLY CONTROLLED TYPE 2 DM /HYPERGLYCEMIA : -Presented with BSG > 500 ; oral med Prandin kept on hold -Hb A1c 10 ; increased form prior Hb A1c ~6 on november -pharmacy consulted for glycemic management treated with iV insulin infusion able to transition to sub q Insulin given elevated Hba1c > 9 , pt will need to be discharged on insulin pt will be discharged with insulin regimen JASON on CKD stage 3 : resolved , Cr approx baseline ATN due to above -dehydration /hyperglycemia /UTI avoid diuretics /nephrotoxins UTI : urine culture + E .coli -garcia sensitive Abx change to Po Ciprofloxacin dose adjusted for renal clearance will need 5 days tx CHRONIC AFIB : on Eliquis cont Amiodarone , Coreg , Digoxin BILATERAL CHRONIC VENOUS STASIS ULCER : follows with Wound care clinic s/p recent debridement appreciate input form wound care local wound care with [facility] /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 AUREUS. PHONED TO WOUND CLINIC ANSWERING MACHINE ON 05/26/17 AT 0731 BY Everett Lenz. RESULTS WERE ALSO CALLED TO [facility] INFECTION CONTROL ANSWERING MACHINE ON 05/26/17 BY [place]. STAPH AUR GBBS M.I.C. RX M.I.C. RX --------- ------ --------- ------ TRIMET/SULFA <=0.5/9.5 S AMPICILLIN 0.12 S * OXACILLIN >2 R CEFOTAXIME <=0.25 S CEFTRIAXONE <=0.25 S CEFEPIME <=0.25 S CHLORAMPHENICOL 2 S VANCOMYCIN 1 S 0.5 S PENICILLIN 0.06 S ERYTHROMYCIN >4 R <=0.06 S TETRACYCLINE <=4 S CLINDAMYCIN <=0.5 S <=0.06 S DAPTOMYCIN <=0.5 S AZITHROMYCIN <=0.25 S RIFAMPIN <=1 S ordered for IV Rocephin ID consulted to adjust Abx and recommendation for duration of tx DVT PROPHYLAXIS on Eliquis DISPOSITION lives at personal group home -House of care active with [facility] follows at the Wound clinic discharge to [facility] when medically stable /BSG improved Medicine follow up with Dr Lola Jean at [facility] Vital Signs: Date Time Temp Pulse Resp B/P (MAP) Pulse Ox O2 Delivery O2 Flow Rate FiO2 05/27/17 16:00 Room Air 05/27/17 15:47 62 05/27/17 15:26 36.6 60 16 110/55 (73) 92 Room Air 05/27/17 08:00 Room Air 05/27/17 07:19 36.4 61 16 118/66 (83) 95 Room Air 05/27/17 00:00 Room Air 05/26/17 22:57 36.4 66 20 126/73 (90) 95 Room Air Lab Results: Results Past 24 Hours Test 05/26/17 21:09 05/26/17 22:13 05/26/17 23:07 05/27/17 00:10 Range/Units Bedside Glucose 211 215 235 200 70-90 mg/dl Test 05/27/17 01:04 05/27/17 02:14 05/27/17 02:50 05/27/17 03:11 Range/Units Bedside Glucose 188 133 129 130 70-90 mg/dl Test 05/27/17 03:53 05/27/17 04:47 05/27/17 06:14 05/27/17 06:50 Range/Units Bedside Glucose 118 113 104 70-90 mg/dl Sodium Level 140 136-145 mmol/L Potassium Level 4.0 3.5-5.1 mmol/L Chloride Level 101 98-107 mmol/L Carbon Dioxide Level 32 21-32 mmol/L Anion Gap 7.0 3-11 mmol/L Blood Urea Nitrogen 49 7-18 mg/dl Creatinine 1.89 0.60-1.20 mg/dl Est Creatinine Clear Calc Drug Dose 34.8 ml/min Estimated GFR () 30.0 Estimated GFR (Non- 25.9 BUN/Creatinine Ratio 26.0 10-20 Random Glucose 98 70-99 mg/dl Calcium Level 9.4 8.5-10.1 mg/dl Test 05/27/17 07:15 05/27/17 07:41 05/27/17 11:31 05/27/17 16:28 Range/Units Bedside Glucose 109 106 263 188 70-90 mg/dl Test 05/27/17 20:07 Range/Units Bedside Glucose 169 70-90 mg/dl
[2017-05-27 15:26] VITALS: BP 110/55; PULSE 60; TEMP 36.6; O2SAT 92
[2017-05-27] MEDS: DIGOXIN 0.125 MG TAB PO SCH (15:47)
[2017-05-27] MEDS ORDERED: CEFTRIAXONE SOD INJ 1 GM in DEXTROSE 5% ADD-VANTAGE 50ML 50 ML IV SCH (16:00)
[2017-05-27] MEDS: SIMVASTATIN 20 MG TAB PO SCH (20:10)
[2017-05-27 22:29] VITALS: BP 122/65; PULSE 60; TEMP 36.7; O2SAT 97
[2017-05-28] MEDS: INSULIN ASPART 100 UNITS/ML 3 ML PEN SC SCH ×4 (00:10→13:13)
[2017-05-28 07:17] VITALS: BP 138/77; PULSE 61; TEMP 36.4; O2SAT 92
[2017-05-28] MEDS: AMIODARONE 200 MG TAB PO SCH (08:25)
[2017-05-28] MEDS: FERROUS SULFATE 325 MG TAB PO SCH (08:25)
[2017-05-28] MEDS: APIXABAN 2.5 MG TAB PO SCH (08:25)
[2017-05-28] MEDS: ASPIRIN 81 MG CHEW PO SCH (08:25)
[2017-05-28] MEDS: CARVEDILOL 6.25 MG TAB PO SCH (08:25)
[2017-05-28] MEDS: ISOSORBIDE MONONITRATE 30 MG TABCR PO SCH (08:26)
[2017-05-28] MEDS: DOCUSATE SODIUM/SENNA 50/8.6MG TAB PO SCH (08:26)
[2017-05-28] MEDS: CIPROFLOXACIN 250 MG TAB PO SCH (08:26)
[2017-05-28] MEDS: GABAPENTIN 100 MG CAP PO SCH ×2 (08:26→13:09)
[2017-05-28] MEDS: INSULIN GLARGINE SOLOSTAR 100 UNITS/ML 3 ML PEN SC SCH (08:29)
[2017-05-28 08:30] LABS: BUN/CREATININE RATIO 24.9 (10-20); CALCIUM 8.9 mg/dl (8.5-10.1); CREATININE 1.64 mg/dl (0.60-1.20); POTASSIUM 4.1 mmol/L (3.5-5.1)
[2017-05-28] MEDS ORDERED: MCTP EXT (10:24)
[2017-05-28] MEDS ORDERED: CIPR250T3 PO (10:24)
--- NOTE | 2017-05-28 10:31 | Discharge Instructions ---
Discharge Instructions Date of Service May 28, 2017. Admission Reason for Admission: Encephlopathy Discharge Discharge Diagnosis / Problem: CHRONIC LOWER EXT WOUND INFECTION /UTI Discharge Goals Goal(s): Decrease discomfort, Improve function, Increase independence, Improve disease control, Diagnostic testing, Therapeutic intervention Activity Recommendations Activity Limitations: resume your previous activity . Instructions / Follow-Up Instructions / Follow-Up HOSPITAL FOLLOW UP 05/31/2017 9:20 AM Lola Jean MD General Internal Medicine [facility] WILL NEED REFERRAL TO DIABETIC CLINIC FOLLOW UP WITH WOUND CARE CLINIC PER SCHEDULED NEW MEDICATIONS : INSULIN * Lantus 40 units SQ BID NovoLog 10 units TID before meals DO NOT TAKE PRANDIN NEED TO CHECK BLOOD SUGAR 4 TIMES DAILY : BEFORE BREAKFAST , BEFORE LUNCH , BEFORE SUPPER AND BEFORE BEDTIME PLEASE KEEP LOG OF ALL THE BLOOD SUGAR READING AND BRING TO NEXT PHYSICIAN VISIT Blood Glucose Goal : Before Meals/Bedtime: 100-150 When to Call Provider : Any Blood Sugar Above 400 or Blood Sugars Persistently Above 200 ANTIBIOTIC : CLINDAMYCIN 150 MG FOUR TIMES DAILY FOR 2 WEEKS -FOR LEG WOUNDS CIPROFLOXACIN 250 MG TWICE DAILY 2 DAYS PLEASE TAKE PROBIOTIC /LACTINEX TO PREVENT DIARRHEA /GASTROENTERITIS PLEASE NOTIFY YOUR FAMILY PHYSICIAN IF STARTED TO HAVE LOOSE STOOL /ABDOMINAL PAIN /FEVER Current Hospital Diet Patient's current hospital diet: Diabetes Type 2 Diet, AHA Diet (Heart Healthy) Discharge Diet Recommended Diet: Low Sodium Diet (2gm Na), Diabetes Type 2 Diet Pending Studies Studies pending at discharge: no Laboratory Results Hemoglobin A1c Test 05/24/17 17:30 Range/Units Estimated Average Glucose 240 mg/dl Hemoglobin A1c 10.0 H 4.5-5.6 % Medical Emergencies . Who to Call and When: Medical Emergencies: If at any time you feel your situation is an emergency, please call 911 immediately. . Non-Emergent Contact Non-Emergency issues call your: Primary Care Provider . . "Provider Documentation" section prepared by Isabelle Hauser. . VTE Core Measure Inpt VTE Proph given/why not?: Other Anticoagulation (ELIQUIS )
[2017-05-28] MEDS ORDERED: CLC150 PO (10:49)
[2017-05-28] MEDS ORDERED: LCTX PO (10:51)
--- NOTE | 2017-05-28 10:54 | Pharmacy Progress Note ---
Pharmacy Glycemic Short Note 2 Date of Service May 28, 2017. ASSESSMENT: * Spoke with Dr Hauser. Pt to be discharged to personal care today - requires insulin recommendations * Pt received 162 units of insulin yesterday, but patient is on IV and po antibiotics as inpatient and was transitioning off of insulin drip. RECOMMENDATIONS FOR DISCHARGE: * Discontinue Prandin * Lantus 40 units SQ BID * Novlog 10 units TID with meals * Titrate per outpatient provider Thank you.
[2017-05-28] MEDS ORDERED: INSDGIPEN SC (11:06)
[2017-05-28] MEDS ORDERED: NVLGI/PEN SC (11:06)
--- NOTE | 2017-05-28 11:08 | Discharge Summary ---
Discharge Summary Date of Service May 28, 2017. Discharge Summary Admission Date: May 24, 2017 at 21:09 Discharge Date: May 28, 2017 Discharge Disposition: Home with services Principal Diagnosis: CHRONIC LOWER EXT WOUND INFECTION /UTI Procedures: ECHO : The left ventricular wall motion is normal. Left ventricular systolic function is normal. The qualitative LV ejection fraction=50% There is a pacemaker lead in the right ventricle. Aortic valve sclerosis moderate, without significant aortic valvular stenosis. Mild aortic regurgitation. There is moderate mitral annular calcification. There is no mitral valve stenosis. Significant mitral regurgitation is absent. Diastolic dysfunction, Grade II (pseudonormalization pattern). CT HEAD WITHOUT CONTRAST Impression: No acute intracranial abnormality. Age-related atrophy and chronic small vessel change Consultations: [facility] WOUND CARE CONSULT Medication Reconciliation New Medications: Cefuroxime Axetil (Cefuroxime Axetil) 500 Mg Tab 250 MG PO BID for 2 Days, #2 TAB Insulin Aspart (Novolog Flexpen) 100 Units/Ml Inj 10 UNITS SC AC for 30 Days, #5 PEN 4 Refills Insulin Glargine (Lantus Solostar) 100 Unit/Ml Inj 40 UNITS SC BID for 30 Days, #5 PEN 4 Refills Lactobacillus Acidophilus (Lactinex) Tab 1 TAB PO TID for 30 Days, #90 TAB OVER THE COUNTER Clindamycin HCl (Clindamycin HCl) 150 Mg Cap 150 MG PO Q6 for 14 Days, #56 CAP Miconazole Nitrate (Desenex Shake Powder) 43 Appln/43 Gm Powd 1 APPLN EXT PRN PRN for Affected Skin Folds for 30 Days Continued Medications: Amiodarone Hcl (Cordarone) 200 Mg Tab 200 MG PO QAM, TAB Apixaban (Eliquis) 5 Mg Tab 5 MG PO BID, TAB Aspirin (Aspirin Chewable) 81 Mg Chew 81 MG PO QAM Bisacodyl (Bisacodyl) 10 Mg Sup 1 DOSE OK DIRECTED PRN for Constipation Carvedilol (Coreg) 6.25 Mg Tab 1 TAB PO BID, TAB 3 Refills Cholecalciferol (Vitamin D) 2,000 Unit Cap 2000 INTUNIT PO QAM Digoxin (Digoxin) 0.125 Mg Tab 125 MCG PO QAM Ferrous Sulfate (Ferrous Sulfate) 325 Mg Tab 1 TAB PO BID Furosemide (Lasix) 40 Mg Tab 40 MG PO BID, TAB Gabapentin (Neurontin) 100 Mg Cap 100 MG PO TID, CAP Isosorbide Mononitrate (Isosorbide Mononitrate ER) 30 Mg Tabcr 30 MG PO QAM, TAB Magnesium Hydroxide (Milk Of Magnesia) 30 Ml Susp 30 ML PO DIRECTED PRN for constipation, ML if no bm in 3 days Miconazole Nitrate (Topical) (Miconazole Nitrate) 1 Pow Pow 1 DOSE TOP DIRECTED Nystatin (Topical) (Nystatin) 100,000 Unit/Gm Pow 1 DOSE TOP BID Polyethylene Glycol 3350 (Miralax) 1 Pow Pow 17 GM PO DIRECTED PRN for Constipation, #255 GM Potassium Chloride (K-Tabs) 10 Meq Tab 1 TAB PO BID Sennosides-Docusate Sodium (Sennalax-S) 1 Tab Tab 1 TAB PO BID Simvastatin (Zocor) 20 Mg Tab 20 MG PO QPM, TAB Discontinued Medications: Repaglinide (Prandin) 1 Mg Tab 1 MG PO TID, TAB Referrals At Discharge Follow up Referrals: Physician Referral - 06/02/17 with Lola Jean M.D. Admission Information HPI (per Admitting provider): DATE OF ADMISSION: 05/24/2017 PRIMARY CARE DOCTOR: Dr. Jean. CHIEF COMPLAINT: Leg wounds as per px hyperglycemia as per records, lethargy as per guardian. HISTORY OF PRESENT ILLNESS: History obtained from the patient, personal custodialhome connect lpn, and records. Limited history from patient secondary to some disorientation. Medical history significant for chronic systolic heart failure secondary to ischemic cardiomyopathy, EF of 25% as per records, CAD status post stenting, hx LBBB, AFib status post pacemaker on Eliquis, PVD, DM2 on oral meds, hypertension, chronic kidney disease (baseline creatinine 1.6) chronic anemia (baseline hemoglobin of 10), intellectual impairment as per records, chronic venous stasis ulcers. Recent confinement January 2017 for right lower extremity cellulitis. As per personal custodialhome connect lpn, the last few days, patient noted to be weaker, confused, disoriented, some deterioration in venous stasis ulceration on lower extremity. Patient evaluated at wound care center this morning. Underwent debridement of left leg. Patient subsequently seen at PCP's office for dry cough sx. Denies aspiration. No chest pain no shortness of breath. Patient denies abdominal pain/diarrhea/dysuria symptoms Chest x-ray clean. Patient noted to be hyperglycemic at PCPs office. BSG 500s. Px brought to the Emergency Room. BSG noted to be 500. Patient given regular insulin in the ER and IV ceftriaxone for possible UTI. Improved mentation now as per guardian although patient still not at baseline. MEDICAL HISTORY: As above. SURGERIES: She has had ICD/pacemaker placement, cholecystectomy, arthroplasty, breast cyst removal. HOME MEDICATIONS: Include Cordarone, Eliquis, aspirin, bisacodyl, Coreg, vitamin D, digoxin, furosemide, Lasix, Neurontin, silver nitrate, magnesium oxide, miconazole, nystatin, MiraLax, K tabs, Prandin, simvastatin. ALLERGIES: No drug allergies. FAMILY HISTORY: There is a family history of heart disease. PERSONAL AND SOCIAL HISTORY: Nonsmoker, no chronic intake of alcoholic beverages. Lives at a personal custodial - [facility] of [facility]. 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 Physical Exam (per Admitting): REVIEW OF SYSTEMS: Could not be reliably obtained. PHYSICAL EXAMINATION: VITAL SIGNS: Blood pressure was noted to be 136/58, pulse rate 60, RR 18, temperature 36.7, sats 98 on room air. GENERAL: Noted to be obese, disoriented, but coherent. No respiratory distress. SKIN: Pallor, warm. HEENT: Pale palpebral conjunctivae. No ptosis. Dry buccal mucosa. NECK: Short neck. No JVD. Supple. CHEST: Decreased breath sounds. No tenderness. HEART: Regular rate and rhythm. Systolic murmur. ABDOMEN: Some distention, nontender. EXTREMITIES: Leg wraps in the lower extremity noted. No tenderness. NEUROLOGIC: Disoriented, but coherent. Hospital Course CONFUSION /METABOLIC ENCEPHALOPATHY : resolved, mental status improved to baseline at present conversing appropriately -multifactorial -Hyperglycemia , JASON , UTI CT head with out contrast -no acute change - POORLY CONTROLLED TYPE 2 DM /HYPERGLYCEMIA : -Presented with BSG > 500 ; oral med Prandin kept on hold -Hb A1c 10 ; increased form prior Hb A1c ~6 on november -pharmacy consulted for glycemic management treated with iV insulin infusion able to transition to sub q Insulin given elevated Hba1c > 9 , pt will need to be discharged on insulin pt is discharged with insulin regimen INSULIN * Lantus 40 units SQ BID NovoLog 10 units TID before meals DO NOT TAKE PRANDIN NEED TO CHECK BLOOD SUGAR 4 TIMES DAILY : BEFORE BREAKFAST , BEFORE LUNCH , BEFORE SUPPER AND BEFORE BEDTIME PLEASE KEEP LOG OF ALL THE BLOOD SUGAR READING AND BRING TO NEXT PHYSICIAN VISIT Blood Glucose Goal : Before Meals/Bedtime: 100-150 When to Call Provider : Any Blood Sugar Above 400 or Blood Sugars Persistently Above 200 JASON on CKD stage 3 : resolved , Cr improved to approx baseline ATN due to above -dehydration /hyperglycemia /UTI avoid diuretics /nephrotoxins UTI : urine culture + E .coli -garcia sensitive was treated with IV Rocephin pt will be discharged with Oral Cefuroxime to complete total 5 days of abx course Ciprofloxacin avoided due to drug interaction with Amiodarone CHRONIC AFIB : on Eliquis cont Amiodarone , Coreg , Digoxin BILATERAL CHRONIC VENOUS STASIS ULCER : follows with Wound care clinic s/p recent debridement appreciate input form wound care local wound care with [employer] /ordered for [employer] 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 AUREUS. PHONED TO WOUND CLINIC ANSWERING MACHINE ON 05/26/17 AT 0731 BY Everett Lenz. RESULTS WERE ALSO CALLED TO [facility] INFECTION CONTROL ANSWERING MACHINE ON 05/26/17 BY [place]. STAPH AUR GBBS M.I.C. RX M.I.C. RX --------- ------ --------- ------ TRIMET/SULFA <=0.5/9.5 S AMPICILLIN 0.12 S * OXACILLIN >2 R CEFOTAXIME <=0.25 S CEFTRIAXONE <=0.25 S CEFEPIME <=0.25 S CHLORAMPHENICOL 2 S VANCOMYCIN 1 S 0.5 S PENICILLIN 0.06 S ERYTHROMYCIN >4 R <=0.06 S TETRACYCLINE <=4 S CLINDAMYCIN <=0.5 S <=0.06 S DAPTOMYCIN <=0.5 S AZITHROMYCIN <=0.25 S RIFAMPIN <=1 S Abx changed to PO Clindamycin will need total 14 days of treatment pt is asked to take Probiotics to prevent antibiotic induced gastroenteritis /C diff asked to notify family physician for any event of diarrhea /abdominal pain or fever while taking abx DVT PROPHYLAXIS on Eliquis DISPOSITION lives at personal custodial -House of care active with [facility] health through [facility] follows at the Wound clinic stable to be discharged to Personal [facility] update given to Care Givers at [facility] , aware of pt's new regimen of insulin they are comfortable with blood sugar check and insulin management Medicine follow up with Dr Lola Jean at [facility] Total time spent on discharge = 50 MINS This includes examination of the patient, discharge planning, medication reconciliation, and communication with other providers. Discharge Instructions Discharge Instructions Date of Service May 28, 2017. Admission Reason for Admission: Encephlopathy Discharge Discharge Diagnosis / Problem: CHRONIC LOWER EXT WOUND INFECTION /UTI Discharge Goals Goal(s): Decrease discomfort, Improve function, Increase independence, Improve disease control, Diagnostic testing, Therapeutic intervention Activity Recommendations Activity Limitations: resume your previous activity . Instructions / Follow-Up Instructions / Follow-Up HOSPITAL FOLLOW UP 05/31/2017 9:20 AM Lola Jean MD General Internal Medicine [facility] WILL NEED REFERRAL TO DIABETIC CLINIC FOLLOW UP WITH WOUND CARE CLINIC PER SCHEDULED NEW MEDICATIONS : INSULIN * Lantus 40 units SQ BID NovoLog 10 units TID before meals DO NOT TAKE PRANDIN NEED TO CHECK BLOOD SUGAR 4 TIMES DAILY : BEFORE BREAKFAST , BEFORE LUNCH , BEFORE SUPPER AND BEFORE BEDTIME PLEASE KEEP LOG OF ALL THE BLOOD SUGAR READING AND BRING TO NEXT PHYSICIAN VISIT Blood Glucose Goal : Before Meals/Bedtime: 100-150 When to Call Provider : Any Blood Sugar Above 400 or Blood Sugars Persistently Above 200 ANTIBIOTIC : CLINDAMYCIN 150 MG FOUR TIMES DAILY FOR 2 WEEKS -FOR LEG WOUNDS CIPROFLOXACIN 250 MG TWICE DAILY 2 DAYS PLEASE TAKE PROBIOTIC /LACTINEX TO PREVENT DIARRHEA /GASTROENTERITIS PLEASE NOTIFY YOUR FAMILY PHYSICIAN IF STARTED TO HAVE LOOSE STOOL /ABDOMINAL PAIN /FEVER Current Hospital Diet Patient's current hospital diet: Diabetes Type 2 Diet, AHA Diet (Heart Healthy) Discharge Diet Recommended Diet: Low Sodium Diet (2gm Na), Diabetes Type 2 Diet Pending Studies Studies pending at discharge: no Laboratory Results Hemoglobin A1c Test 05/24/17 17:30 Range/Units Estimated Average Glucose 240 mg/dl Hemoglobin A1c 10.0 H 4.5-5.6 % Medical Emergencies . Who to Call and When: Medical Emergencies: If at any time you feel your situation is an emergency, please call 911 immediately. . Non-Emergent Contact Non-Emergency issues call your: Primary Care Provider . . "Provider Documentation" section prepared by Isabelle Hauser. . VTE Core Measure Inpt VTE Proph given/why not?: Other Anticoagulation (ELIQUIS ) Additional Copies To Lola Jean M.D.
[2017-05-28 11:17] VITALS: BP 138/77; PULSE 61; TEMP 36.4; O2SAT 92
[2017-05-28] MEDS ORDERED: CLINDAMYCIN HCL 150 MG CAP PO SCH (12:00)
[2017-05-28] MEDS ORDERED: CEFU1TAB36 PO (15:24)
== END 2017-05-28 16:30 | disposition home or self-care (01) | DRG 682 ==
LOC: C.EDB 17:05 → C.MS4W 21:09 → ENRESERV 21:18
PROVIDERS: ADMIT Hospitalist; ATTEND Hospitalist
DX: N17.0 Acute kidney failure with tubular necrosis (principal); G93.41 Metabolic encephalopathy; N39.0 Urinary tract infection, site not specified; I13.0 Hypertensive heart and chronic kidney disease with heart failure and stage 1 through stage 4 chronic kidney disease, or unspecified chronic kidney disease; I50.22 Chronic systolic (congestive) heart failure; L97.819 Non-pressure chronic ulcer of other part of right lower leg with unspecified severity; L97.829 Non-pressure chronic ulcer of other part of left lower leg with unspecified severity; E11.65 Type 2 diabetes mellitus with hyperglycemia; B96.20 Unspecified Escherichia coli [E. coli] as the cause of diseases classified elsewhere; E11.22 Type 2 diabetes mellitus with diabetic chronic kidney disease; E11.622 Type 2 diabetes mellitus with other skin ulcer; E83.52 Hypercalcemia; E86.0 Dehydration; I25.10 Atherosclerotic heart disease of native coronary artery without angina pectoris; I25.5 Ischemic cardiomyopathy; I48.2 Chronic atrial fibrillation; I87.2 Venous insufficiency (chronic) (peripheral); N18.3 Chronic kidney disease, stage 3 (moderate); Z79.01 Long term (current) use of anticoagulants; Z79.899 Other long term (current) drug therapy; Z95.0 Presence of cardiac pacemaker; Z95.1 Presence of aortocoronary bypass graft; Z95.5 Presence of coronary angioplasty implant and graft

== ENCOUNTER 2017-07-18 10:27 | Emergency (ER) | payer OTHER ==
[~2017-07-18] VITALS: Ht 167.6 cm; Wt 107.1 kg
[~2017-07-18 10:27] MED LIST changes: -ACET-1311 PO; +INSDGIPEN SC; -MAGN400T6 PO; +MCTP EXT; +MICO1POW8 TOP; +NVLGI/PEN SC; +NYST100033 TOP; -REPA1TAB40 PO
[2017-07-18 10:43] VITALS: TEMP 36.8; Ht 167.6 cm; Wt 107.1 kg
[2017-07-18] MEDS ORDERED: ACETAMINOPHEN 500 MG TAB PO STA (11:09)
[2017-07-18] MEDS ORDERED: NVLGI7030 SC ×2 (11:10)
[2017-07-18] MEDS ORDERED: MAGN400T6 PO (11:10)
[2017-07-18] MEDS ORDERED: NVLGI/PEN SC (11:10)
--- NOTE | 2017-07-18 11:16 | EMERGENCY ROOM VISIT NOTE ---
History Report prepared by Luis A: Fer Chapin Under the Supervision of: Dr. Braulio Mas M.D. First contact with patient: 10:31 Chief Complaint: OTHER COMPLAINT Stated Complaint: WOUND CHECK History of Present Illness The patient is a 71 year old white female with a past medical history of DM, pacemaker, A-fib, CHF, CKD, CAD, encephalopathy, uterine cancer, HTN, cholecystectomy who presents to the ED with a cc of constant bleeding from her left leg beginning last night. Positive leg redness. Negative traumas. She was putting cream on her leg, and the skin peeled off. She goes to the wound care clinic. She is on Eliquis. Source of History: patient Onset: last night Position: leg (left) Quality: other (bleeding) Timing: constant Note: Associated symptoms: Redness Review of Systems See HPI for pertinent positives and negatives. A total of ten systems were reviewed and were otherwise negative. Past Medical & Surgical Medical Problems: (1) Acute and chronic respiratory failure (2) Atrial fibrillation (3) Cellulitis of right leg without foot (4) CHF (congestive heart failure) (5) CKD (chronic kidney disease), stage III (6) Coronary artery disease (7) DM type 2 (diabetes mellitus, type 2) (8) Encephalopathy (9) History of osteomyelitis (10) History of uterine cancer (11) HTN (hypertension) (12) Pacemaker (13) Respiratory distress (14) Systolic CHF, chronic Surgical Problems: (1) History of total bilateral knee replacement (2) S/P cholecystectomy (3) Status post placement of cardiac pacemaker Family History Cancer MOTHER Heart disease MOTHER Social History Smoking Status: Never Smoker Drug Use: none Marital Status: Housing Status: other Occupation Status: retired Current/Historical Medications Scheduled Amiodarone Hcl (Cordarone), 200 MG PO QAM Apixaban (Eliquis), 5 MG PO BID Aspirin (Aspirin Chewable), 81 MG PO QAM Carvedilol (Coreg), 6.25 MG PO BID Cholecalciferol (Vitamin D), 2,000 INTUNIT PO QAM Digoxin (Digoxin), 125 MCG PO QAM Ferrous Sulfate (Ferrous Sulfate), 325 MG PO BID Furosemide (Lasix), 40 MG PO BID Gabapentin (Neurontin), 100 MG PO TID Insulin Aspart (Novolog Flexpen), 12 UNITS SC QDL Insulin Aspart 70/30 (Novolog Mix 70/30), 56 UNITS SC QAM Insulin Aspart 70/30 (Novolog Mix 70/30), 50 UNITS SC QPM Isosorbide Mononitrate (Isosorbide Mononitrate ER), 30 MG PO QAM Magnesium Oxide (Mag-Ox), 100 MG PO DAILY Potassium Chloride (K-Tabs), 10 MEQ PO BID Sennosides-Docusate Sodium (Sennalax-S), 1 TAB PO BID Simvastatin (Zocor), 20 MG PO QPM Scheduled PRN Magnesium Hydroxide (Milk Of Magnesia), 30 ML PO DIRECTED PRN for constipation Polyethylene Glycol 3350 (Miralax), 17 GM PO DIRECTED PRN for Constipation Allergies Coded Allergies: No Known Allergies (Unverified , 07/18/17) Physical Exam Vital Signs Date Time Temp Pulse Resp B/P (MAP) Pulse Ox O2 Delivery O2 Flow Rate FiO2 07/18/17 12:38 68 18 103/48 93 Room Air 07/18/17 10:43 36.8 66 16 113/51 94 Room Air Physical Exam GENERAL: Awake, alert, well-appearing, NAD HENT: Normocephalic, atraumatic. Edentulous. EYES: Normal conjunctiva. Sclera non-icteric. NECK: Supple. No nuchal rigidity. FROM. RESPIRATORY: CTAB, no rhonchi, wheezing, crackles CARDIAC: RRR, no MRG ABDOMEN: Soft, NTND, BS+ MSK: No chest wall TTP. 1-2+ Pretibial edema. Incisional scars over the anterior chest with device in the left chest. NEURO: GCS 15, CN 2-12 intact, moves all 4s on command SKIN: 2x4cm abrasion on the left mid wu. 1x1cm fluid filled blister distal to the abrasion. Erythema on bilateral LE without calor. NVI distally. Medical Decision & Procedures Laboratory Results 07/18/17 11:25 Red Blood Count 3.94, Mean Corpuscular Volume 97.7, Mean Corpuscular Hemoglobin 28.9, Mean Corpuscular Hemoglobin Concent 29.6, Mean Platelet Volume 9.0, Neutrophils (%) (Auto) 80.2, Lymphocytes (%) (Auto) 8.6, Monocytes (%) (Auto) 6.9, Eosinophils (%) (Auto) 3.5, Basophils (%) (Auto) 0.5, Neutrophils # (Auto) 6.28, Lymphocytes # (Auto) 0.67, Monocytes # (Auto) 0.54, Eosinophils # (Auto) 0.27, Basophils # (Auto) 0.04 07/18/17 11:25 Test 07/18/17 11:25 White Blood Count 7.82 K/uL (4.8-10.8) Red Blood Count 3.94 M/uL (4.2-5.4) Hemoglobin 11.4 g/dL (12.0-16.0) Hematocrit 38.5 % (37-47) Mean Corpuscular Volume 97.7 fL (80-100) Mean Corpuscular Hemoglobin 28.9 pg (25-34) Mean Corpuscular Hemoglobin Concent 29.6 g/dl (32-36) Platelet Count 161 K/uL (130-400) Mean Platelet Volume 9.0 fL (7.4-10.4) Neutrophils (%) (Auto) 80.2 % Lymphocytes (%) (Auto) 8.6 % Monocytes (%) (Auto) 6.9 % Eosinophils (%) (Auto) 3.5 % Basophils (%) (Auto) 0.5 % Neutrophils # (Auto) 6.28 K/uL (1.4-6.5) Lymphocytes # (Auto) 0.67 K/uL (1.2-3.4) Monocytes # (Auto) 0.54 K/uL (0.11-0.59) Eosinophils # (Auto) 0.27 K/uL (0-0.5) Basophils # (Auto) 0.04 K/uL (0-0.2) RDW Standard Deviation 69.2 fL (36.4-46.3) RDW Coefficient of Variation 19.6 % (11.5-14.5) Immature Granulocyte % (Auto) 0.3 % Immature Granulocyte # (Auto) 0.02 K/uL (0.00-0.02) Prothrombin Time 11.1 SECONDS (9.0-12.0) Prothromb Time International Ratio 1.1 (0.9-1.1) Activated Partial Thromboplast Time 30.4 SECONDS (21.0-31.0) Partial Thromboplastin Ratio 1.2 Anion Gap 7.0 mmol/L (3-11) Est Creatinine Clear Calc Drug Dose 35.6 ml/min Estimated GFR () 33.1 Estimated GFR (Non- 28.6 BUN/Creatinine Ratio 30.2 (10-20) Calcium Level 9.4 mg/dl (8.5-10.1) Laboratory results reviewed by me ED Course 1104: The patient was evaluated in room C10. A complete history and physical exam was performed. 1226: I reevaluated the patient. Discussed results and discharge instructions. She will follow up with the wound care clinic, and she stets that she has specific topical cream for her wounds and will apply it. If anything changes or worsens, then she will come back, otherwise she will keep her appointment. The patient was discharged home. Medical Decision The patient is a 71 year old white female with a past medical history of DM, pacemaker, A-fib, CHF, CKD, CAD, encephalopathy, uterine cancer, HTN, cholecystectomy who presents to the ED with a cc of bleeding from her left leg beginning last night. Positive leg redness. Differential diagnosis: Etiologies such as cellulitis, abscess, MRSA infection, DVT, necrotizing fasciitis, dermatitis, drug eruption, as well as others were entertained. Patient was seen and evaluated the bedside. Patient did note that she had some bleeding, for left lower extremity last evening. Patient does receive chronic wound care and is have a wound care follow-up on Tuesday. Patient states that she just applied some sort of cream to her lower extremities and noticed some bleeding yesterday. On bedside exam the patient does have an area of ruptured blister. The lower extremities are erythematous however this is fairly unchanged with the patient. Of note the patient does have some mild edema but no calor is noted. Patient's wound was hemostatic at this time. Patient does take liquids that she does have a history of A. fib. Patient did have blood work completed in the bandage was covered. The patient's blood work was fairly unremarkable. The patient doesn't have an elevated white blood cell count. The patient's old charts are normal. Patient does have CK D with this is at her baseline. I believe that most of the redness is likely related to chronic venous stasis symptoms and lymphedema. He has no asymmetry less likely DVT specialist the patient is on Elequis. Do not believe that she has necrotizing fasciitis she doesn't have any crepitus and her physical exam and history. The patient does have a wound care follow-up on Tuesday. I do not believe that she requires antibiotics or further testing at this time. Patient was deemed suitable for outpatient follow-up and treatment this time.Patient was given strict follow-up, discharge, and return precautions. All questions were answered. Patient was deemed suitable for outpatient follow-up at this time. Patient agreed with the plan of care and was safely discharged home. Medication Reconcilliation Current Medication List: was personally reviewed by me Blood Pressure Screening Patient's blood pressure: Normal blood pressure Impression Primary Impression: Abrasion, left lower leg, initial encounter Additional Impression: Lymphedema Scribe Attestation The scribe's documentation has been prepared under my direction and personally reviewed by me in its entirety. I confirm that the note above accurately reflects all work, treatment, procedures, and medical decision making performed by me. Departure Information Dispostion Home / Self-Care Referrals Lola Jean M.D. (PCP) Patient Instructions ED Wound Care, [facility] Additional Instructions Please return to the emergency department if you have worsening or recurrent symptoms not amenable to at-home treatment. Please call for a follow-up appointment with her primary care physician. Please take your medications as prescribed. If you have other concerns and/or complaints please feel free to also call your primary care physician's office or return the ED for further evaluation, management, and treatment. Please change or dressing daily. You may apply antibiotic ointment daily. You may wash with gentle soap and water but to be careful as this may cause more bleeding. Please keep her follow-up appointment with her prepress specialist on Tuesday. Take your medications as prescribed. You have been examined and treated today on an emergency basis only. This is not a substitute for, or an effort to provide, complete comprehensive medical care. It is impossible to recognize and treat all injuries or illnesses in a single emergency department visit. It is therefore important that you follow up closely with [facility], your PCP, and/or your specialist(s). Call as soon as possible for an appointment. Thank you for your time and consideration. I look forward to speaking with you again soon. Please don't hesitate to call us if you have any questions. Problem Qualifiers
[2017-07-18 11:43] LABS: BASO % 0.5 %; BASO ABS # 0.04 K/uL (0-0.2); EOS % 3.5 %; EOS ABS # 0.27 K/uL (0-0.5); HEMATOCRIT 38.5 % (37-47); HEMOGLOBIN 11.4 g/dL (12.0-16.0); IG# 0.02 K/uL (0.00-0.02); LYMPH % 8.6 %; LYMPH ABS # 0.67 K/uL (1.2-3.4); MEAN CELL VOLUME 97.7 fL (80-100); MEAN CORPUSCULAR HEMOGLOBIN 28.9 pg (25-34); MEAN CORPUSCULAR HGB CONC 29.6 g/dl (32-36); MONO % 6.9 %; MONO ABS # 0.54 K/uL (0.11-0.59); NEUT % 80.2 %; NEUT ABS # 6.28 K/uL (1.4-6.5); PLATELET COUNT 161 K/uL (130-400); RED CELL DISTRIBUTION WIDTH CV 19.6 % (11.5-14.5); RED CELL DISTRIBUTION WIDTH SD 69.2 fL (36.4-46.3); WHITE BLOOD COUNT 7.82 K/uL (4.8-10.8)
[2017-07-18 11:51] LABS: INR 1.1 (0.9-1.1); PTT PATIENT 30.4 SECONDS (21.0-31.0)
[2017-07-18 11:59] LABS: CALCIUM 9.4 mg/dl (8.5-10.1); CREATININE 1.74 mg/dl (0.60-1.20); POTASSIUM 4.1 mmol/L (3.5-5.1)
[2017-07-18 12:38] VITALS: BP 103/48; PULSE 68; O2SAT 93
== END 2017-07-18 13:07 | disposition home or self-care (01) ==
LOC: EDBD 10:27 → C.EDC 10:32
DX: S80.812A Abrasion, left lower leg, initial encounter (principal); X58.XXXA Exposure to other specified factors, initial encounter; Y92.9 Unspecified place or not applicable; I89.0 Lymphedema, not elsewhere classified; E11.9 Type 2 diabetes mellitus without complications; I48.91 Unspecified atrial fibrillation; N18.9 Chronic kidney disease, unspecified; I25.10 Atherosclerotic heart disease of native coronary artery without angina pectoris; G93.40 Encephalopathy, unspecified; Z85.42 Personal history of malignant neoplasm of other parts of uterus; I11.0 Hypertensive heart disease with heart failure; M86.9 Osteomyelitis, unspecified; Z95.0 Presence of cardiac pacemaker; Z96.653 Presence of artificial knee joint, bilateral; Z80.9 Family history of malignant neoplasm, unspecified; Z82.49 Family history of ischemic heart disease and other diseases of the circulatory system; Z79.4 Long term (current) use of insulin; Z79.82 Long term (current) use of aspirin; Z79.899 Other long term (current) drug therapy

== ENCOUNTER 2018-01-20 14:54 | Emergency (ER) | payer OTHER ==
[~2018-01-20 14:54] MED LIST changes: -BISA10SU5 PR; +CEPH500C2 PO; -INSDGIPEN SC; +MAGN400T6 PO; -MCTP EXT; -MICO1POW8 TOP; +NVLGI7030 SC; -NYST100033 TOP
[2018-01-20 15:06] VITALS: TEMP 36.6; Ht 167.6 cm
[2018-01-20 16:52] LABS: HEMATOCRIT 38.9 % (37-47); HEMOGLOBIN 11.3 g/dL (12.0-16.0); MEAN CORPUSCULAR HEMOGLOBIN 27.3 pg (25-34); MEAN PLATELET VOLUME 8.3 fL (7.4-10.4); PLATELET COUNT 186 K/uL (130-400); RED CELL DISTRIBUTION WIDTH CV 20.1 % (11.5-14.5); RED CELL DISTRIBUTION WIDTH SD 68.8 fL (36.4-46.3); WHITE BLOOD COUNT 5.47 K/uL (4.8-10.8)
[2018-01-20 17:12] LABS: BASO % 0.4 %; BASO ABS # 0.02 K/uL (0-0.2); EOS % 4.6 %; EOS ABS # 0.25 K/uL (0-0.5); IG# 0.02 K/uL (0.00-0.02); LYMPH % 10.8 %; LYMPH ABS # 0.59 K/uL (1.2-3.4); MONO % 7.9 %; MONO ABS # 0.43 K/uL (0.11-0.59); NEUT % 75.9 %; NEUT ABS # 4.16 K/uL (1.4-6.5)
--- NOTE | 2018-01-20 17:13 | EMERGENCY ROOM VISIT NOTE ---
ED Visit Note First contact with patient: 16:48 CHIEF COMPLAINT: Weeping wound to left leg HISTORY OF PRESENTING ILLNESS: This is a 72-year-old female who presents to the emergency department from [facility] with concern for weeping wound of the left leg. The patient is followed by wound clinic for diabetic wounds of both lower extremities. Per patient and staff, there has been excessive drainage from the left lower leg, weeping from the wound. They were told by the home health nurse to bring the patient to the ED for evaluation. Patient denies any pain in the legs. She denies any fevers, chills, or feeling ill. She states that she feels her legs have been improving overall since starting with wound care and antibiotics. She is currently on Keflex. She denies any purulent drainage from the wounds. She denies any other symptoms of chest pain, SOB, abdominal or back pain, headaches, dizziness, syncope, nausea, vomiting, diarrhea, urinary symptoms, or unusual rash. She does take Eliquis and baby aspirin, she denies any abnormal bruising or bleeding. REVIEW OF SYSTEMS: A complete 10 point review of systems was reviewed with the patient with pertinent positives and negatives as per history of present illness. All else were negative. PAST MEDICAL HISTORY: Reviewed in chart, see problem list below. SOCIAL HISTORY: Lives in a personal usp. She denies tobacco use. ALLERGIES: No known allergies. PHYSICAL EXAM: CONSTITUTIONAL: Pleasant and cooperative. No acute distress. Well appearing and well nourished. HEENT: Normocephalic, atraumatic. Pupils equal, round and reactive to light, EOMI. TMs normal. Pharynx normal. NECK: Supple, full active range of motion without discomfort. RESPIRATORY: Clear to auscultation bilaterally with no wheezing, crackles, rhonchi or stridor. Equal expansion bilaterally. CARDIOVASCULAR: Regular rate and rhythm with no murmurs, rubs or gallops. Normal peripheral perfusion. No edema. GASTROINTESTINAL: Soft, nontender, nondistended. No palpable masses or HSM. Bowel sounds present in all quadrants. MUSCULOSKELETAL: The bilateral lower legs are erythematous, mildly swollen, and slightly tender to palpation. There are several areas of breakdown on both legs that appear to be in various stages of healing. There is a small ulcerated area on the posterior aspect of the distal left calf with serous drainage. No purulent drainage noted from any wounds. Full range of motion of all joints without discomfort. INTEGUMENTARY: No rash or other significant dermatologic conditions noted. NEUROLOGIC: Alert and oriented X 4 with normal affect. Normal strength and sensation in all 4 extremities. No focal neurologic deficits noted. Normal speech. Normal gait observed. ED COURSE AND MEDICAL DECISION MAKING: CC: Patient presenting with complaint of seeping from wound on left leg DIFFERENTIAL DIAGNOSIS: Includes, but not limited to cellulitis, abscess, diabetic ulcer, wound infection, osteomyelitis, failed antibiotic therapy, edema , electrolyte imbalance, among others. INTERPRETATION OF LABS: No leukocytosis, mild anemia (consistent with baseline) , normal platelets, no significant electrolyte abnormalities, elevated BUN/ creatinine consistent with baseline, normal liver enzymes. IMAGING: L TIBIA/FIBULA 2 VIEWS ROUTINE CLINICAL HISTORY: Cellulitis. Diabetic open wound. Possible osteomyelitis COMPARISON: None. DISCUSSION: The bones are osteopenic. There are vascular calcifications present. No fractures are visualized. There is mild cortical/periosteal thickening involving the medial aspect of the distal tibia. There are no destructive lesions to indicate osteomyelitis. There is a patellar deformity which is felt to be old. IMPRESSION: 1. No acute fractures 2. No conventional radiographic evidence of acute osteomyelitis MEDICATION RECONCILIATION: I attest that I have personally reviewed the patient 's current medication list. INITIAL VITAL SIGNS REVIEW: I reviewed the patient's initial vital signs and interpret them as follows: T: Afebrile; BP: Normotensive; HR: Within normal limits; RR: Within normal limits; Pulse Ox: Within normal limits on room air. Blood pressure screening: The patient was found to have normal blood pressure on screening and does not require follow-up for repeat blood pressure check. SUMMARY: Patient was evaluated at bedside, history and physical exam performed. Patient is alert and oriented, in no acute distress, resting calmly in stretcher. Dressings were taken down to both legs, noting several abrasions and stasis ulcers in various stages of healing. There is weeping of serous fluid from ulcerated lesion of the posterior left calf. No purulent drainage, the calves are not hot to touch or severely painful. Orders were placed at bedside for labs and x-ray of the left calf to evaluate for severe cellulitis/osteomyelitis. Wound culture of the draining ulcer collected and sent to lab. Patient discussed with Dr. Avelar, who agrees with my assessment and plan. Labs and imaging reviewed as above, unremarkable. Patient appears to be stable with no evidence of worsening infection, as she had a normal WBC count and has been afebrile. Wound care and new dressings performed by nursing staff. Patient reassessed multiple times throughout ED stay, she has remained stable, without complaint, and feels ready for discharge. Patient was updated on all results and plan for discharge, she was encouraged to follow-up with her primary care provider, and to continue following closely with wound care clinic. Patient was also given strict return precautions should her symptoms worsen, she verbalized understanding. Patient was discharged home in stable condition and ambulatory. (Yuli Corbett CRNP) First contact with patient: 16:48 The patient was seen and examined with advanced care provider. I agree with the history, physical and findings. Will hold changing antibiotics at this time. Follow up on Tuesday with wound clinc. Discussed return precautions. Please see the note for disposition and details. (Abhijit Avelar M.D.) Problem List Medical Problems: (1) Atrial fibrillation Status: Chronic (2) CKD (chronic kidney disease), stage III Status: Chronic (3) Coronary artery disease Status: Chronic (4) DM type 2 (diabetes mellitus, type 2) Status: Chronic (5) History of osteomyelitis Permanent Comment: R third toe Status: Chronic (6) History of uterine cancer Permanent Comment: s/p XRT Status: Chronic (7) HTN (hypertension) Status: Chronic (8) Pacemaker Status: Chronic (9) Systolic CHF, chronic Permanent Comment: LVEF 20-25% Status: Chronic Surgical Problems: (1) History of total bilateral knee replacement Status: Chronic (2) S/P cholecystectomy Status: Chronic (3) Status post placement of cardiac pacemaker Status: Chronic (Abhijit Avelar M.D.) Current/Historical Medications Scheduled Amiodarone Hcl (Cordarone), 200 MG PO QAM Apixaban (Eliquis), 5 MG PO BID Aspirin (Aspirin Chewable), 81 MG PO QAM Carvedilol (Coreg), 6.25 MG PO BID Cephalexin Monohydrate (Keflex), 500 MG PO TID Cholecalciferol (Vitamin D), 2,000 INTUNIT PO QAM Digoxin (Digoxin), 125 MCG PO QAM Ferrous Sulfate (Ferrous Sulfate), 325 MG PO BID Furosemide (Lasix), 40 MG PO BID Gabapentin (Neurontin), 100 MG PO TID Insulin Aspart (Novolog Flexpen), 12 UNITS SC QDL Insulin Aspart 70/30 (Novolog Mix 70/30), 56 UNITS SC QAM Insulin Aspart 70/30 (Novolog Mix 70/30), 50 UNITS SC QPM Isosorbide Mononitrate (Isosorbide Mononitrate ER), 30 MG PO QAM Magnesium Oxide (Mag-Ox), 100 MG PO DAILY Potassium Chloride (K-Tabs), 10 MEQ PO BID Sennosides-Docusate Sodium (Sennalax-S), 1 TAB PO BID Simvastatin (Zocor), 20 MG PO QPM Scheduled PRN Magnesium Hydroxide (Milk Of Magnesia), 30 ML PO DIRECTED PRN for constipation Polyethylene Glycol 3350 (Miralax), 17 GM PO DIRECTED PRN for Constipation Allergies Coded Allergies: No Known Allergies (Unverified , 07/18/17) Vital Signs Date Time Temp Pulse Resp B/P (MAP) Pulse Ox O2 Delivery O2 Flow Rate FiO2 01/20/18 19:38 60 18 139/64 90 01/20/18 18:33 85 16 125/60 95 Room Air 01/20/18 16:51 60 16 125/60 87 Room Air 01/20/18 15:06 36.6 62 20 121/71 92 Room Air (Abhijit Avelar M.D.) Laboratory Results 01/20/18 16:30 Red Blood Count 4.14, Mean Corpuscular Volume 94.0, Mean Corpuscular Hemoglobin 27.3, Mean Corpuscular Hemoglobin Concent 29.0, Mean Platelet Volume 8.3, Neutrophils (%) (Auto) 75.9, Lymphocytes (%) (Auto) 10.8, Monocytes (%) (Auto) 7.9, Eosinophils (%) (Auto) 4.6, Basophils (%) (Auto) 0.4, Neutrophils # (Auto) 4.16, Lymphocytes # (Auto) 0.59, Monocytes # (Auto) 0.43, Eosinophils # (Auto) 0.25, Basophils # (Auto) 0.02 01/20/18 16:30 Test 01/20/18 16:30 White Blood Count 5.47 K/uL (4.8-10.8) Red Blood Count 4.14 M/uL (4.2-5.4) Hemoglobin 11.3 g/dL (12.0-16.0) Hematocrit 38.9 % (37-47) Mean Corpuscular Volume 94.0 fL (80-100) Mean Corpuscular Hemoglobin 27.3 pg (25-34) Mean Corpuscular Hemoglobin Concent 29.0 g/dl (32-36) Platelet Count 186 K/uL (130-400) Mean Platelet Volume 8.3 fL (7.4-10.4) Neutrophils (%) (Auto) 75.9 % Lymphocytes (%) (Auto) 10.8 % Monocytes (%) (Auto) 7.9 % Eosinophils (%) (Auto) 4.6 % Basophils (%) (Auto) 0.4 % Neutrophils # (Auto) 4.16 K/uL (1.4-6.5) Lymphocytes # (Auto) 0.59 K/uL (1.2-3.4) Monocytes # (Auto) 0.43 K/uL (0.11-0.59) Eosinophils # (Auto) 0.25 K/uL (0-0.5) Basophils # (Auto) 0.02 K/uL (0-0.2) RDW Standard Deviation 68.8 fL (36.4-46.3) RDW Coefficient of Variation 20.1 % (11.5-14.5) Immature Granulocyte % (Auto) 0.4 % Immature Granulocyte # (Auto) 0.02 K/uL (0.00-0.02) Hypochromasia PRESENT Anisocytosis PRESENT Anion Gap 5.0 mmol/L (3-11) Estimated GFR () 24.4 Estimated GFR (Non- 21.0 BUN/Creatinine Ratio 23.0 (10-20) Calcium Level 9.2 mg/dl (8.5-10.1) Total Bilirubin 0.4 mg/dl (0.2-1) Aspartate Amino Transf (AST/SGOT) 15 U/L (15-37) Alanine Aminotransferase (ALT/SGPT) 17 U/L (12-78) Alkaline Phosphatase 58 U/L (45-117) Total Protein 8.8 gm/dl (6.4-8.2) Albumin 3.4 gm/dl (3.4-5.0) Globulin 5.4 gm/dl (2.5-4.0) Albumin/Globulin Ratio 0.6 (0.9-2) (Abhijit Avelar M.D.) Departure Information Impression Primary Impression: Diabetic calf ulcer Dispostion Home / Self-Care Condition GOOD Referrals Lola Jean M.D. (PCP) Patient Instructions ED Infec Skin Cellulitis, [facility] Additional Instructions You have been evaluated and treated in the emergency department today for a weeping wound on your left leg. A wound culture was sent today from the weeping ulcer, you will be notified of any abnormal results. Keep the legs elevated as much as possible to help reduce swelling in the legs. You may keep the left leg wrapped with an Orss bandage to help reduce drainage from the wound. Continue taking your prescribed antibiotic, Keflex, as directed to treat for infection. Continue to follow up with the wound care clinic for the ulcers of both lower legs. Please return to the emergency department for worsening symptoms, including severe pain, increased swelling, pus drainage from the wounds, streaking, fevers /chills, or any other concerns.
[2018-01-20 17:29] LABS: AST/SGOT 15 U/L (15-37); POTASSIUM 4.7 mmol/L (3.5-5.1)
[2018-01-20 17:31] LABS: ALBUMIN 3.4 gm/dl (3.4-5.0); ALKALINE PHOSPHATASE 58 U/L (45-117); ALT/SGPT 17 U/L (12-78); BLOOD UREA NITROGEN 51 mg/dl (7-18); CALCIUM 9.2 mg/dl (8.5-10.1); CARBON DIOXIDE 30 mmol/L (21-32); CREATININE 2.23 mg/dl (0.60-1.20); GLUCOSE 114 mg/dl (70-99); SODIUM 139 mmol/L (136-145); TOTAL PROTEIN 8.8 gm/dl (6.4-8.2)
--- NOTE | 2018-01-20 17:47 | DIAGNOSTIC IMAGING REPORT ---
L TIBIA/FIBULA 2 VIEWS ROUTINE CLINICAL HISTORY: Cellulitis. Diabetic open wound. Possible osteomyelitis COMPARISON: None. DISCUSSION: The bones are osteopenic. There are vascular calcifications present. No fractures are visualized. There is mild cortical/periosteal thickening involving the medial aspect of the distal tibia. There are no destructive lesions to indicate osteomyelitis. There is a patellar deformity which is felt to be old. IMPRESSION: 1. No acute fractures 2. No conventional radiographic evidence of acute osteomyelitis Electronically signed by: Tee Ulrich M.D. 01/20/2018 5:45 PM Dictated Date/Time: 01/20/2018 5:44 PM
[2018-01-20 19:38] VITALS: BP 139/64; PULSE 60; O2SAT 90
[2018-01-23] MEDS ORDERED: DOXY100C41 PO (10:54)
--- NOTE | 2018-01-23 13:50 | Pharmacy Progress Note ---
ED Pharmacist Culture FollowUp Date of Service: Jan 23, 2018. Diabetic patient with b/l venous ulcerations presented to ED on 01/20 for increased serous drainage from L calf ulceration. Preliminary cx from this site is growing 2 strep species and MRSA. She had been taking Keflex at the time she presented to the ER - prescribed by wound clinic. She did not have systemic symptoms, no leukocytosis and was afebrile. She also did not have purulent drainage. She was instructed to continue her Keflex and f /u with wound clinic. Pt did f/u with wound clinic today and changed abx to Doxycycline to cover MRSA - and wound clinic is awaiting final ID + sensitivities of strep species to tailor abx further as Doxy may not cover strep sp reliably. No further action required from ED standpoint.
[2018-01-23] MEDS ORDERED: AMOX500C3 PO (14:20)
== END 2018-01-20 19:38 | disposition home or self-care (01) ==
LOC: C.EDB 14:56
DX: L97.829 Non-pressure chronic ulcer of other part of left lower leg with unspecified severity (principal); I48.91 Unspecified atrial fibrillation; E11.9 Type 2 diabetes mellitus without complications; I25.10 Atherosclerotic heart disease of native coronary artery without angina pectoris; I10 Essential (primary) hypertension; Z95.0 Presence of cardiac pacemaker; Z96.653 Presence of artificial knee joint, bilateral; Z79.4 Long term (current) use of insulin; Z79.82 Long term (current) use of aspirin; Z79.899 Other long term (current) drug therapy

== ENCOUNTER 2018-08-30 10:28 | Inpatient (IN) ==
[2018-08-30] MEDS ORDERED: PIPERACILL/TAZOBAC CONSULT ACTIVE PRN (10:38)
[2018-08-30] MEDS ORDERED: PIPERACILLIN/TAZOBACTAM 4.5 GM/120 ML BAG IV ONE (10:38)
[2018-08-30] MEDS ORDERED: VANCOMYCIN CONSULT ACTIVE PRN (11:00)
[2018-08-30] MEDS ORDERED: VANCOMYCIN HCL 2,250 MG in SODIUM CHLORIDE 0.9% 500 ML IV ONE (11:00)
[2018-08-30] MEDS ORDERED: SODIUM CHLORIDE 0.9% 500 ML IV ONE (11:02)
[2018-08-30] MEDS ORDERED: ACETAMINOPHEN 65 ML IV ONE (11:02)
--- NOTE | 2018-08-30 11:03 | XRay Report ---
XR chest 1V portable CLINICAL HISTORY: Sepsis dyspnea COMPARISON STUDY: 12/21/2016 FINDINGS: Congestive heart failure. Moderate cardiomegaly. Prominent pulmonary vasculature. IMPRESSION: Congestive heart failure. The above report was generated using voice recognition software. It may contain grammatical, syntax or spelling errors. Electronically signed by: Sen Magallon M.D. 08/30/2018 11:01 AM
[2018-08-30] MEDS ORDERED: FUROSEMIDE 40 MG/4 ML VIAL IV STA (11:23)
[2018-08-30 11:43] LABS: Influenza A virus by PCR Neg for Influ A (Neg); Influenza B virus by PCR Neg for Influ B (Neg)
[2018-08-30 12:26] LABS: Basophils # (auto) 0.01 K/uL (0-0.2); Basophils % (auto) 0.1 %; Eosinophils # (auto) 0.02 K/uL (0-0.5); Eosinophils % (auto) 0.3 %; Hematocrit (blood only) 36.2 % (37-47); Immature Granulocytes # (auto) 0.01 K/uL (0.00-0.02); Immature Granulocytes % (auto) 0.1 %; Lymphocytes # (auto) 0.15 K/uL (1.2-3.4); Mean Corpuscular Hgb Conc 30.4 g/dL (32-36); Mean Corpuscular Volume 94.5 fL (80-100); Mean Platelet Volume 8.8 fL (7.4-10.4); Monocytes # (auto) 0.32 K/uL (0.11-0.59); Monocytes % (auto) 4.2 %; Neutrophils # (auto) 7.02 K/uL (1.4-6.5); Neutrophils % (auto) 93.3 %; Platelet Count 165 K/uL (130-400); RDW Coefficient of Variation 19.4 % (11.5-14.5); RDW Standard Deviation 67.6 fL (36.4-46.3); Red Blood Count 3.83 M/uL (4.2-5.4); White Blood Count 7.53 K/uL (4.8-10.8)
[2018-08-30 12:29] LABS: iSTAT Creatinine 1.8 mg/dl (0.6-1.3); iSTAT Hemoglobin 11.6 g/dl (12.0-16.0); iSTAT Ionized Calcium 1.09 mmol/l (1.12-1.32); iSTAT Potassium 4.7 mEq/L (3.3-5.0)
[2018-08-30 12:42] LABS: Allen Test POS (Pos); HCO3 ABG 27 mmol/L (19-24); Oxygen Saturation ABG 89.3 % (90-95); PCO2 ABG 47 mmHg (35-46); PO2 ABG 61 mm/Hg (80-95); pH ABG 7.37 (7.35-7.45)
[2018-08-30 12:45] LABS: Albumin Level 2.7 gm/dl (3.4-5.0); BUN Creatinine Ratio 30.7 (10-20); Calcium 8.4 mg/dl (8.5-10.1); Creatinine Clr Calc Pharmacy 30.5 ml/min; Est GFR (African American) 29.6; Est GFR (Non-African American) 25.5; Magnesium 2.4 mg/dl (1.8-2.4); Potassium 4.6 mmol/L (3.5-5.1)
[2018-08-30 12:46] LABS: INR 1.2 (0.9-1.1); Partial Thromboplastin Ratio 1.1; Partial Thromboplastin Time 29.9 Seconds (21.0-31.0); Prothrombin Time 11.9 Seconds (9.0-12.0)
[2018-08-30 12:47] LABS: Albumin Globulin Ratio 0.6 (0.9-2); Bilirubin,Total 0.7 mg/dl (0.2-1); Globulin 4.9 gm/dl (2.5-4.0); Total Protein 7.6 gm/dl (6.4-8.2)
--- NOTE | 2018-08-30 13:16 | CT Scan Report ---
CT chest wo con CT DOSE: 868.91 mGy.cm HISTORY: hypoxia TECHNIQUE: Multiaxial CT images of the chest were performed without contrast. A dose lowering techni que was utilized adhering to the principles of ALARA. COMPARISON: Chest 08/30/2018. FINDINGS: Respiratory motion artifact. The central airways appear patent. No pneumothorax. Bilateral patchy groundglass airspace opacities seen throughout the lungs. There is also mild interlobular sept al thickening. Deformity within the left lateral fourth rib may be due to old trauma. No acute fractu res within the visualized osseous structures. The visualized unenhanced liver and spleen are unremark able. Trace bilateral pleural effusions. The thyroid gland is enlarged. Coarse calcifications within the left breast which may be secondary to postsurgical change. Normal caliber thoracic aorta. The hea rt is mildly enlarged. Left-sided pacemaker is noted. There are coronary artery calcifications. Mild mediastinal lymphadenopathy. Dominant right peritracheal lymph node seen on image 40 and measures 1.7 cm. IMPRESSION: 1. Patchy groundglass airspace opacities seen throughout the lungs with mild interlobular septal thic kening, mild cardiomegaly, and trace pleural effusions. This favors mild pulmonary edema. An atypical pneumonia could also have a similar appearance. 2. Mild mediastinal lymphadenopathy. This is nonspecific but could be seen the setting of chronic pul monary edema. A lymphoproliferative disorder would also be in the differential diagnosis. Electronically signed by: Marquez Clark M.D. 08/30/2018 1:15 PM
--- NOTE | 2018-08-30 14:29 | Emergency Department Note ---
Entered by Lyn Tucker acting as a scribe for History of Present Illness General Chief complaint: Illness Time Seen by Provider: 08/30/18 10:28 Source: patient and other (nursing staff) History of Present Illness Provider complaint: weaknesss Onset (ago): hour(s) (this morning) Location: left and right Quality: + other (weakness) Associated symptoms: + denies other symptoms (denies abdominal pain) and + nausea/vomiting; no shortness of breath The patient is a 72 year old white female w/ PMHx CKD, DM2, HTN, CAD, CHF, and a pacemaker who presents to the ED w/ CC of weakness since this morning. Per nursing staff, the patient also vomited. The patient denies feeling short of breath and states that she does not normally wear Oxygen. She also denies having abdominal pain. The patient denies a history of blood clots. Per nursing staff, the patient is from [facility]. The patient denies alcohol and tobacco use. She states that she follows with a Wound Care clinic and states that she is supposed to go tomorrow. Home Medications Home Medications Medication Instructions Recorded Confirmed Type amiodarone 200 mg tablet 200 mg PO DAILY 02/22/18 08/30/18 History apixaban 5 mg tablet 5 mg PO BID 02/22/18 08/30/18 History aspirin 81 mg chewable tablet 81 mg PO DAILY 02/22/18 08/30/18 History carvedilol 6.25 mg tablet 6.25 mg PO BID 02/22/18 08/30/18 History cholecalciferol (vitamin D3) 2,000 2,000 units PO DAILY 02/22/18 08/30/18 History unit capsule digoxin 125 mcg tablet 0.125 mg PO Q2D 02/22/18 08/30/18 History ferrous sulfate 325 mg (65 mg 325 mg PO BID tab 02/22/18 08/30/18 History iron) tablet,delayed release furosemide 40 mg tablet 40 mg PO QAM 02/22/18 08/30/18 History gabapentin 100 mg capsule 100 mg PO TID cap 02/22/18 08/30/18 History insulin aspar prt-insulin aspart 58 units SQ QPM ml 02/22/18 08/30/18 History 100 unit/mL (70-30) subcutaneous soln insulin aspar prt-insulin aspart 80 units SQ QAM ml 02/22/18 08/30/18 History 100 unit/mL (70-30) subcutaneous soln insulin aspart U- 100 100 unit/mL 6 units SQ QDL ml 02/22/18 08/30/18 History subcutaneous pen isosorbide mononitrate ER 30 mg 30 mg PO QAM 02/22/18 08/30/18 History tablet,extended release 24 hr sennosides 8.6 mg-docusate sodium 1 tab PO BID 02/22/18 08/30/18 History 50 mg tablet simvastatin 20 mg tablet 20 mg PO QPM 02/22/18 08/30/18 History furosemide 20 mg PO DAILY 08/30/18 08/30/18 History levothyroxine 75 mcg PO QAM 08/30/18 08/30/18 History potassium chloride 10 meq PO DAILY 08/30/18 08/30/18 History trazodone 50 mg PO HS 08/30/18 08/30/18 History Allergies Allergy/AdvReac Type Severity Reaction Status Date / Time No Known Allergies Allergy Verified 08/30/18 11:10 Past Med/Surg History Medical History A-fib (Chronic) Anemia (Chronic) CHF (congestive heart failure) (Chronic) Diabetes 1.5, managed as type 2 (Chronic) Diabetic neuropathy (Chronic) Hyperlipidemia (Chronic) Uterine cancer (Resolved) Surgical History S/P cardiac pacemaker procedure (Resolved) S/P cholecystectomy (Resolved) Status post bilateral knee replacements (Resolved) Family History Other No pertinent family history Social History Visual Impairment: No Limitations 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: Normal Feels Safe at Home: Yes Smoking Status: Never smoker Review of Systems See HPI for pertinent positives & negatives. and A total of 10 systems reviewed and were otherwise negative Physical Exam Vital Signs Vital Signs - 24 hr 08/30/18 10:39 08/30/18 10:43 08/30/18 10:45 Temperature 37.8 C H Temperature Source Oral Sepsis Recent Fever Within 48 Hours No Sepsis New/Unexplained Change in Mental Status No Sepsis Action Taken by Nursing No Action Required Pulse Rate 71 69 Pulse Rate from SpO2 Sensor 67 Respiratory Rate 20 22 Respiratory Effort / Characteristics Non-Labored Respiratory Depth Normal Respiratory Pattern Regular Blood Pressure 185/77 H 143/65 H Blood Pressure Mean 113 91 Pulse Oximetry 60 L 93 93 Oxygen Delivery Method Room Air Nasal Cannula Nasal Cannula Oxygen Flow Rate 4 4 08/30/18 10:49 08/30/18 11:01 08/30/18 11:16 Temperature Temperature Source Sepsis Recent Fever Within 48 Hours Sepsis New/Unexplained Change in Mental Status Sepsis Action Taken by Nursing Pulse Rate 69 71 Pulse Rate from SpO2 Sensor 68 72 Respiratory Rate 21 19 Respiratory Effort / Characteristics Respiratory Depth Respiratory Pattern Blood Pressure 138/64 115/54 L Blood Pressure Mean 88 74 Pulse Oximetry 96 96 95 Oxygen Delivery Method Nasal Cannula Nasal Cannula Nasal Cannula Oxygen Flow Rate 4 4 4 08/30/18 11:31 08/30/18 11:45 08/30/18 12:00 Temperature Temperature Source Sepsis Recent Fever Within 48 Hours Sepsis New/Unexplained Change in Mental Status Sepsis Action Taken by Nursing Pulse Rate 72 70 68 Pulse Rate from SpO2 Sensor 69 67 68 Respiratory Rate 20 19 18 Respiratory Effort / Characteristics Respiratory Depth Respiratory Pattern Blood Pressure 115/55 L 111/54 L 102/51 L Blood Pressure Mean 75 73 68 Pulse Oximetry 97 94 92 Oxygen Delivery Method Nasal Cannula Nasal Cannula Nasal Cannula Oxygen Flow Rate 4 3 3 08/30/18 12:16 08/30/18 12:30 08/30/18 12:36 Temperature 37.6 C H Temperature Source Oral Sepsis Recent Fever Within 48 Hours Sepsis New/Unexplained Change in Mental Status Sepsis Action Taken by Nursing Pulse Rate 68 68 Pulse Rate from SpO2 Sensor 68 68 Respiratory Rate 16 19 Respiratory Effort / Characteristics Respiratory Depth Respiratory Pattern Blood Pressure 102/51 L 105/58 L Blood Pressure Mean 68 73 Pulse Oximetry 90 91 Oxygen Delivery Method Nasal Cannula Nasal Cannula Oxygen Flow Rate 3 3 08/30/18 12:45 08/30/18 13:12 08/30/18 13:16 Temperature Temperature Source Sepsis Recent Fever Within 48 Hours Sepsis New/Unexplained Change in Mental Status Sepsis Action Taken by Nursing Pulse Rate 70 70 68 Pulse Rate from SpO2 Sensor 70 70 68 Respiratory Rate 23 22 21 Respiratory Effort / Characteristics Respiratory Depth Respiratory Pattern Blood Pressure 102/56 L 108/52 L 120/50 L Blood Pressure Mean 71 70 73 Pulse Oximetry 95 94 91 Oxygen Delivery Method Nasal Cannula Nasal Cannula Nasal Cannula Oxygen Flow Rate 3 3 3 08/30/18 13:31 08/30/18 13:46 08/30/18 14:00 Temperature Temperature Source Sepsis Recent Fever Within 48 Hours Sepsis New/Unexplained Change in Mental Status Sepsis Action Taken by Nursing Pulse Rate 66 66 66 Pulse Rate from SpO2 Sensor 66 66 66 Respiratory Rate 16 17 16 Respiratory Effort / Characteristics Respiratory Depth Respiratory Pattern Blood Pressure 118/58 L 106/59 L 120/58 L Blood Pressure Mean 78 74 78 Pulse Oximetry 93 94 96 Oxygen Delivery Method Nasal Cannula Nasal Cannula Nasal Cannula Oxygen Flow Rate 3 3 3 08/30/18 14:15 Temperature Temperature Source Sepsis Recent Fever Within 48 Hours Sepsis New/Unexplained Change in Mental Status Sepsis Action Taken by Nursing Pulse Rate 66 Pulse Rate from SpO2 Sensor 66 Respiratory Rate 15 Respiratory Effort / Characteristics Respiratory Depth Respiratory Pattern Blood Pressure 118/55 L Blood Pressure Mean 76 Pulse Oximetry 96 Oxygen Delivery Method Nasal Cannula Oxygen Flow Rate 3 GENERAL: Well appearing, well nourished, NAD, non-toxic. EYE EXAM: Normal conjunctiva. PERRL, no anisocoria and EOM's grossly intact w/o pain OROPHARYNX: Moist mucus membranes. Macroglossia. Edenentulous. NECK: Supple, no nuchal rigidity, no adenopathy, non-tender. No signs of men ingismus. LUNGS: Clear to auscultation bilaterally. Normal chest wall mechanics. HEART: Normal sinus rhythm, no MRG. CHEST: Device in the left chest. ABDOMEN: Abdomen soft, non-tender, no masses, no rebound or guarding. BACK: No CVA TTP. SKIN: No rashes and no bruising. UPPER EXTREMITIES: Upper extremities are grossly normal. LOWER EXTREMITIES: Bilateral lower extremity edema. Left appears slightly larger. Mild erythema to the bilateral lower extremities. 2 small wounds to the left medial lower extremity. NEURO EXAM: AOx3, GCS 15, no gross deficit, follows commands. Moves all 4 extremities on command w/o issue Course 1034: Past medical records reviewed. The patient was evaluated in room A3, and a complete history and physical examination were performed. 1311: I checked on the patient. 1325: I discussed the patient's case with Amna Brannon who will evaluate the patient for further management. Consultations Consultation #1: Amna Brannon Time: 13:25 Administered Medications Discontinued Medications Furosemide (Lasix) 40 mg IV NOW STA Stop: 08/30/18 11:24 Last Admin: 08/30/18 11:31 Dose: 40 mg Documented by: [id number] Piperacillin Sod/Tazobactam Sod (Zosyn) 4.5 gm in 120 mls @ 240 mls/hr IV NOW ONE Stop: 08/30/18 11:07 Last Infusion: 08/30/18 13:12 Dose: 0 mls/hr Documented by: [id number] Admin: 08/30/18 12:36 Dose: 240 mls/hr Documented by: [id number] Vancomycin HCl 2,250 mg/ (Sodium Chloride) 545 mls @ 200 mls/hr IV NOW ONE Stop: 08/30/18 13:43 Last Admin: 08/30/18 13:12 Dose: 200 mls/hr Documented by: [id number] Acetaminophen (Ofirmev) 65 mls @ 200 mls/hr IV NOW ONE Stop: 08/30/18 11:21 Last Infusion: 08/30/18 11:40 Dose: 0 mls/hr Documented by: [id number] Admin: 08/30/18 11:14 Dose: 200 mls/hr Documented by: [id number] Sodium Chloride (Nss) 500 mls @ 999 mls/hr IV .Q31M ONE Stop: 08/30/18 11:32 Last Infusion: 08/30/18 11:47 Dose: 0 mls/hr Documented by: [id number] Admin: 08/30/18 11:14 Dose: 999 mls/hr Documented by: [id number] Medical Decision Making Medical Records Attestation: I reviewed the patient's medical records. Home Medications Current Medication List: was personally reviewed by me Laboratory Data Attestation: I reviewed the patient's lab results. Result diagrams: 08/30/18 12:15 08/30/18 12:15 Lab Results 08/30/18 08/30/18 08/30/18 Range/Units 10:35 12:15 12:15 WBC 7.53 (4.8-10.8) K/uL RBC 3.83 L (4.2-5.4) M/uL Hgb 11.0 L (12.0-16.0) g/dL POC Hgb (12.0-16.0) g/dl Hct 36.2 L (37-47) % POC Hct (37-47) % MCV 94.5 (80-100) fL MCH 28.7 (25-34) pg MCHC 30.4 L (32-36) g/dL RDW Std Deviation 67.6 H (36.4-46.3) fL RDW Coeff of Gerardo 19.4 H (11.5-14.5) % Plt Count 165 (130-400) K/uL MPV 8.8 (7.4-10.4) fL Immature Gran % (Auto) 0.1 % Neut % (Auto) 93.3 % Lymph % (Auto) 2.0 % [place] % (Auto) 4.2 % Eos % (Auto) 0.3 % Baso % (Auto) 0.1 % Immature Gran # (Auto) 0.01 (0.00-0.02) K/uL Neut # (Auto) 7.02 H (1.4-6.5) K/uL Lymph # (Auto) 0.15 L (1.2-3.4) K/uL [place] # (Auto) 0.32 (0.11-0.59) K/uL Eos # (Auto) 0.02 (0-0.5) K/uL Baso # (Auto) 0.01 (0-0.2) K/uL PT 11.9 (9.0-12.0) Seconds INR 1.2 H (0.9-1.1) APTT 29.9 (21.0-31.0) Seconds PTT Ratio 1.1 ABG pH (7.35-7.45) ABG pCO2 (35-46) mmHg ABG pO2 (80-95) mm/Hg ABG HCO3 (19-24) mmol/L ABG O2 Saturation (90-95) % ABG Base Excess (-9-1.8) mEq/L Wing Test (Pos) Barometric Pressure mm/Hg Oxygen Given POC Sodium (135-144) mEq/L Sodium (136-145) mmol/L POC Potassium (3.3-5.0) mEq/L Potassium (3.5-5.1) mmol/L POC Chloride (101-112) mEq/L Chloride (98-107) mmol/L Carbon Dioxide (21-32) mmol/L POC Total CO2 (24-31) mEq/l Anion Gap (3-11) POC Anion Gap (16-25) mmol/L POC BUN (7-18) mg/dl BUN (7-18) mg/dl Creatinine (0.6-1.2) mg/dl POC Creatinine (0.6-1.3) mg/dl Est Cr Clr Drug Dosing ml/min Est GFR ( Amer) Est GFR (Non-Af Amer) BUN/Creatinine Ratio (10-20) Glucose (70-99) mg/dl POC Glucose (other) (70-99) mg/dl Lactate (0.4-2.0) mmol/L Calcium (8.5-10.1) mg/dl POC Ioniz Calcium Jitendra (1.12-1.32) mmol/l Magnesium (1.8-2.4) mg/dl Total Bilirubin (0.2-1) mg/dl AST (15-37) U/L ALT (12-78) U/L Alkaline Phosphatase (45-117) U/L NT-Pro-B Natriuret Pep (0-900) pg/ml Total Protein (6.4-8.2) gm/dl Albumin (3.4-5.0) gm/dl Globulin (2.5-4.0) gm/dl Albumin/Globulin Ratio (0.9-2) Procalcitonin (0-0.5) ng/ml Digoxin (0.8-2.0) ng/ml Influenza Type A (PCR) Neg for Influ A (Neg) Influenza Type B (PCR) Neg for Influ B (Neg) 08/30/18 08/30/18 08/30/18 Range/Units 12:15 12:15 12:15 WBC (4.8-10.8) K/uL RBC (4.2-5.4) M/uL Hgb (12.0-16.0) g/dL POC Hgb (12.0-16.0) g/dl Hct (37-47) % POC Hct (37-47) % MCV (80-100) fL MCH (25-34) pg MCHC (32-36) g/dL RDW Std Deviation (36.4-46.3) fL RDW Coeff of Gerardo (11.5-14.5) % Plt Count (130-400) K/uL MPV (7.4-10.4) fL Immature Gran % (Auto) % Neut % (Auto) % Lymph % (Auto) % [place] % (Auto) % Eos % (Auto) % Baso % (Auto) % Immature Gran # (Auto) (0.00-0.02) K/uL Neut # (Auto) (1.4-6.5) K/uL Lymph # (Auto) (1.2-3.4) K/uL [place] # (Auto) (0.11-0.59) K/uL Eos # (Auto) (0-0.5) K/uL Baso # (Auto) (0-0.2) K/uL PT (9.0-12.0) Seconds INR (0.9-1.1) APTT (21.0-31.0) Seconds PTT Ratio ABG pH (7.35-7.45) ABG pCO2 (35-46) mmHg ABG pO2 (80-95) mm/Hg ABG HCO3 (19-24) mmol/L ABG O2 Saturation (90-95) % ABG Base Excess (-9-1.8) mEq/L Wing Test (Pos) Barometric Pressure mm/Hg Oxygen Given POC Sodium (135-144) mEq/L Sodium 136 (136-145) mmol/L POC Potassium (3.3-5.0) mEq/L Potassium 4.6 (3.5-5.1) mmol/L POC Chloride (101-112) mEq/L Chloride 103 (98-107) mmol/L Carbon Dioxide 28 (21-32) mmol/L POC Total CO2 (24-31) mEq/l Anion Gap 4.0 (3-11) POC Anion Gap (16-25) mmol/L POC BUN (7-18) mg/dl BUN 58 H (7-18) mg/dl Creatinine 1.90 H (0.6-1.2) mg/dl POC Creatinine (0.6-1.3) mg/dl Est Cr Clr Drug Dosing 30.5 ml/min Est GFR ( Amer) 29.6 Est GFR (Non-Af Amer) 25.5 BUN/Creatinine Ratio 30.7 H (10-20) Glucose 170 H (70-99) mg/dl POC Glucose (other) (70-99) mg/dl Lactate 1.7 (0.4-2.0) mmol/L Calcium 8.4 L (8.5-10.1) mg/dl POC Ioniz Calcium Jitendra (1.12-1.32) mmol/l Magnesium 2.4 (1.8-2.4) mg/dl Total Bilirubin 0.7 (0.2-1) mg/dl AST 19 (15-37) U/L ALT 25 (12-78) U/L Alkaline Phosphatase 61 (45-117) U/L NT-Pro-B Natriuret Pep 2095 H (0-900) pg/ml Total Protein 7.6 (6.4-8.2) gm/dl Albumin 2.7 L (3.4-5.0) gm/dl Globulin 4.9 H (2.5-4.0) gm/dl Albumin/Globulin Ratio 0.6 L (0.9-2) Procalcitonin (0-0.5) ng/ml Digoxin 1.0 (0.8-2.0) ng/ml Influenza Type A (PCR) (Neg) Influenza Type B (PCR) (Neg) 08/30/18 08/30/18 08/30/18 Range/Units 12:15 12:15 12:15 WBC (4.8-10.8) K/uL RBC (4.2-5.4) M/uL Hgb (12.0-16.0) g/dL POC Hgb 11.6 L (12.0-16.0) g/dl Hct (37-47) % POC Hct 34 L (37-47) % MCV (80-100) fL MCH (25-34) pg MCHC (32-36) g/dL RDW Std Deviation (36.4-46.3) fL RDW Coeff of Gerardo (11.5-14.5) % Plt Count (130-400) K/uL MPV (7.4-10.4) fL Immature Gran % (Auto) % Neut % (Auto) % Lymph % (Auto) % [place] % (Auto) % Eos % (Auto) % Baso % (Auto) % Immature Gran # (Auto) (0.00-0.02) K/uL Neut # (Auto) (1.4-6.5) K/uL Lymph # (Auto) (1.2-3.4) K/uL [place] # (Auto) (0.11-0.59) K/uL Eos # (Auto) (0-0.5) K/uL Baso # (Auto) (0-0.2) K/uL PT (9.0-12.0) Seconds INR (0.9-1.1) APTT (21.0-31.0) Seconds PTT Ratio ABG pH 7.37 (7.35-7.45) ABG pCO2 47 H (35-46) mmHg ABG pO2 61 L (80-95) mm/Hg ABG HCO3 27 H (19-24) mmol/L ABG O2 Saturation 89.3 L (90-95) % ABG Base Excess 1.0 (-9-1.8) mEq/L Wing Test POS (Pos) Barometric Pressure 735.7 mm/Hg Oxygen Given 3L POC Sodium 138 (135-144) mEq/L Sodium (136-145) mmol/L POC Potassium 4.7 (3.3-5.0) mEq/L Potassium (3.5-5.1) mmol/L POC Chloride 102 (101-112) mEq/L Chloride (98-107) mmol/L Carbon Dioxide (21-32) mmol/L POC Total CO2 27 (24-31) mEq/l Anion Gap (3-11) POC Anion Gap 15.0 L (16-25) mmol/L POC BUN 48 H (7-18) mg/dl BUN (7-18) mg/dl Creatinine (0.6-1.2) mg/dl POC Creatinine 1.8 H (0.6-1.3) mg/dl Est Cr Clr Drug Dosing ml/min Est GFR ( Amer) Est GFR (Non-Af Amer) BUN/Creatinine Ratio (10-20) Glucose (70-99) mg/dl POC Glucose (other) 168 H (70-99) mg/dl Lactate (0.4-2.0) mmol/L Calcium (8.5-10.1) mg/dl POC Ioniz Calcium Jitendra 1.09 L (1.12-1.32) mmol/l Magnesium (1.8-2.4) mg/dl Total Bilirubin (0.2-1) mg/dl AST (15-37) U/L ALT (12-78) U/L Alkaline Phosphatase (45-117) U/L NT-Pro-B Natriuret Pep (0-900) pg/ml Total Protein (6.4-8.2) gm/dl Albumin (3.4-5.0) gm/dl Globulin (2.5-4.0) gm/dl Albumin/Globulin Ratio (0.9-2) Procalcitonin 0.14 (0-0.5) ng/ml Digoxin (0.8-2.0) ng/ml Influenza Type A (PCR) (Neg) Influenza Type B (PCR) (Neg) Imaging Data Radiologist's Impression: Radiology results as stated below per my review and th e radiologist's interpretation: XR chest 1V portable CLINICAL HISTORY: Sepsis dyspnea COMPARISON STUDY: 12/21/2016 FINDINGS: Congestive heart failure. Moderate cardiomegaly. Prominent pulmonary vasculature. IMPRESSION: Congestive heart failure. The above report was generated using voice recognition software. It may contain grammatical, syntax or spelling errors. Electronically signed by: Sen Magallon M.D. 08/30/2018 11:[address] chest wo con CT DOSE: 868.91 mGy.cm HISTORY: hypoxia TECHNIQUE: Multiaxial CT images of the chest were performed without contrast. A dose lowering technique was utilized adhering to the principles of ALARA. COMPARISON: Chest 08/30/2018. FINDINGS: Respiratory motion artifact. The central airways appear patent. No pneumothorax. Bilateral patchy groundglass airspace opacities seen throughout t he lungs. There is also mild interlobular septal thickening. Deformity within the left lateral fourth rib may be due to old trauma. No acute fractures within the visualized osseous structures. The visualized unenhanced liver and spleen are unremarkable. Trace bilateral pleural effusions. The thyroid gland is enlarged. Coarse calcifications within the left breast which may be secondary to postsurgical change. Normal caliber thoracic aorta. The heart is mildly enlarged. Left-sided pacemaker is noted. There are coronary artery calcifications. Mild mediastinal lymphadenopathy. Dominant right peritracheal lymph node seen on image 40 and measures 1.7 cm. IMPRESSION: 1. Patchy groundglass airspace opacities seen throughout the lungs with mild interlobular septal thickening, mild cardiomegaly, and trace pleural effusions. This favors mild pulmonary edema. An atypical pneumonia could also have a similar appearance. 2. Mild mediastinal lymphadenopathy. This is nonspecific but could be seen the setting of chronic pulmonary edema. A lymphoproliferative disorder would also be in the differential diagnosis. Electronically signed by: Marquez Clark M.D. 08/30/2018 1:15 PM ECG Data Attestation: I personally reviewed and interpreted this ECG as follows: Indication: SOB/dyspnea Rate (beats per minute): 69 Rhythm: other (ventricular paced) Findings: + other (wide QRS), + Q waves (inferiorly and laterally ) and + T-wave inversion (high lateral ) Blood Pressure Blood Pressure Findings: Elevated blood pressure Blood Pressure Disposition: further management by hospitalist MEETA Narrative The patient is a 72 year old white female w/ PMHx CKD, DM2, HTN, CAD, CHF, and a pacemaker who presents to the ED w/ CC of weakness since this morning. Differentials include: ICH, CVA, PNA, shortness of breath, bronchitis, PE, UTI, gastroenteritis, electrolyte abnormality, ACS, CHF among others. Patient was seen and evaluated the bedside. Patient presented for weakness and was presenting from a homeless long-term. On exam the patient is hypoxic but does not complain of any shortness of breath or chest pains. Patient was immediately placed on supplemental oxygen with titration of her oxygen saturation to 90-94%. Patient denies any tobacco history or history of blood clots in legs or lungs. Patient does have multiple medical comorbidities. Patient did a blood work completed along with blood and urine cultures chest x- ray CT of the chest and empiric antibiotics. A blood gas was also obtained. Patient does have a normal white count. H&H shows mild anemia at 11. It is fairly unchanged compared to prior which was 12. Platelet count is normal. Patient's ABG shows a PaO2 of 61 which is still low while on 3 L. Patient has not required any additional supplemental oxygen and do not want to titrate higher as the patient is satting 90-94%. Patient is not retaining as the patient has a fairly normal pH at 737 with a PCO2 of 47. Patient does have some baseline kidney dysfunction which is really unchanged with a creatinine 1.9. Patient does have an elevated BNP at 2000. Fluids were held and Lasix were given. The patient's digoxin level is within normal limits. Pro-calcitonin is not elevated with the patient does have significant cellulitic change and associated wounds for which she was empirically covered with antibiotics. The hypoxia could be related to congestive versus atypical pneumonia. Patient CT shows likely congestive change however could be atypical pneumonia appearance. I did speak to the on-call hospitalist who agreed to further evaluate treat the patient. Patient was admitted to the medicine service. Impression & Plan Bilateral lower leg cellulitis, Respiratory failure with hypoxia, CHF exacerbation Critical Care Time I have personally spent greater than 45 minutes of critical care time in direct management of this patient. This includes bedside care, interpretation of diagnostic studies, and testing, discussion with consultants, patient, and family members, and other require inpatient management activities. This 45 minutes is in excess of all separately billable procedures. Critical Care Time: Yes Total Critical Care Time: 45 Discharge Plan Visit Data Chief Complaint: Illness ED Provider: Braulio Mas Discharge Problem: Bilateral lower leg cellulitis, Respiratory failure with hypoxia, CHF exacerbation Patient Disposition: Being Evaluated by Hospitalist Forms Stand Alone Forms: My [facility] Prescriptions Prescriptions: No Action amiodarone 200 mg tablet 200 mg PO DAILY RF: 0 apixaban [Eliquis] 5 mg tablet 5 mg PO BID RF: 0 aspirin 81 mg tablet,chewable 81 mg PO DAILY RF: 0 carvedilol [Coreg] 6.25 mg tablet 6.25 mg PO BID RF: 0 cholecalciferol (vitamin D3) 2,000 unit capsule 2,000 units PO DAILY RF: 0 digoxin 125 mcg tablet 0.125 mg PO Q2D RF: 0 ferrous sulfate 325 mg (65 mg iron) tablet,delayed release (DR/EC) 325 mg PO BID RF: 0 furosemide 40 mg tablet 40 mg PO QAM RF: 0 gabapentin [Neurontin] 100 mg capsule 100 mg PO TID RF: 0 insulin asp prt-insulin aspart [Novolog Mix 70-30 U-100 Insuln] 100 unit/mL (70-30) solution 80 units SQ QAM RF: 0 insulin asp prt-insulin aspart [Novolog Mix 70-30 U-100 Insuln] 100 unit/mL (70-30) solution 58 units SQ QPM RF: 0 insulin aspart U-100 [Novolog Flexpen U-100 Insulin] 100 unit/mL insulin pen 6 units SQ QDL RF: 0 isosorbide mononitrate 30 mg tablet extended release 24 hr 30 mg PO QAM RF: 0 sennosides-docusate sodium 8.6-50 mg tablet 1 tab PO BID RF: 0 simvastatin [Zocor] 20 mg tablet 20 mg PO QPM RF: 0 furosemide 40 mg Tablet 20 mg PO DAILY RF: 0 trazodone 50 mg Tablet 50 mg PO HS RF: 0 potassium chloride 10 mEq Tablet Extended Release 10 meq PO DAILY RF: 0 levothyroxine 75 mcg Tablet 75 mcg PO QAM RF: 0 Referrals Referrals: Lola Jean MD [Primary Care Provider] - Discharge Problem: Respiratory failure with hypoxia Qualifiers: Chronicity: unspecified Qualified Code(s): J96.91 - Respiratory failure, unspecified with hypoxia CHF exacerbation Qualifiers: Heart failure type: unspecified Qualified Code(s): I50.9 - Heart failure, unspecified The scribe's documentation has been prepared under my direction and personally reviewed by me in its entirety. I confirm that the note above accurately reflects all work, treatment, procedures, and medical decision making performed by me.
--- NOTE | 2018-08-30 15:33 | History & Physical Report ---
Date of Service August 30, 2018 Assessment & Plan (1) Respiratory failure with hypoxia: This is a 72-year-old white female who has a significant past medical history of mild intellectual disability, IDDM T2, CAD, combined systolic and diastolic CHF, PAF anticoagulated on Eliquis, cardiac pacemaker in situ, HTN, HLD, PVD, history of osteomyelitis s/p amputation toe of right foot, depression, morbid obesity who presents to [facility] ED secondary to SOB times 1 day. Patient is Poor Historian. CXR/CT Scan concerning for mild pulmonary edema vs atypical PNA Temp elevated 37.8 BNP elevated 2095, procalcitonin 0.14, Flu negative, WBC WNL In ED was given 40mg IV lasix as well as broad spectrum antibiotic IV Zosyn and Vanco Placed on supplemental oxygen which improved hypoxia Outside of SOB she is without other respiratory complaint, no cough, hemoptysis, PND or orthopnea, but again she is poor historian DDx but not limited to: atypical PNA, CHF exac, granulomatous disease, malignancy -admit to med/surg telemetry -Continue IV antibiotics and await blood culture results, if no improvement may need to consult pulmonary -Titrate supplemental O2 as needed -Likely CHF component, received 40mg IV lasix in ED -Start on IV lasix 40mg BID Monitor for diuresis, volume status -daily weights, strict I and Os -pacer interrogation (2) Pneumonia: -continue broad spectrum antibiotic with vanco/zosyn -MRSA nasal swab ordered, if negative can D/C Vanco -pulmonary toilet with xopenex, incentive spirometry (3) Mediastinal lymphadenopathy: -treatment as above, will need appropriate follow up to determine resolution (4) CHF exacerbation: -daily weights, strict I and O -monitor for diuresis -continue lasix, BB, imdur (5) Coronary artery disease: -no current CP, troponin wnl -continue ASA, imdur, statin,BB (6) HTN (hypertension): -blood pressure stable, continue BB, Lasix (7) Atrial fibrillation: -rate and rhythm controlled on amiodarone, digoxin, coreg -apixaban for anticoagulation (8) DM type 2 (diabetes mellitus, type 2): -A1C 6.6 03/10/, repeat in a.m. -hold outpatient 70/[address] on lantus/novolog per protocol (9) CKD (chronic kidney disease), stage IV: -baaseline Cr 1.9-2.1 -bun/cr 58 and 1.8 today -monitor bmp, avoid nephrotoxins (10) Chronic venous insufficiency: -with current venous stasis ulcerations x 2 LLE -consult wound care -b/l lower extremities are erythematous, slightly warm; however, compared to images from prior wound care visits it appears similar. WBC is WNL, but mildly febrile -concern for cellulitis in differential (11) Venous stasis ulcer: -as above (12) Anemia: -H/H stable at 11.0 and 36.2 -follow cbc (13) DVT prophylaxis: -continue apixaban, avoid mechanical prophylaxis given venous insufficiency Disposition: to be determined, case management consulted Follow up: PCP Dr. Lola Jean upon discharge Patient was seen in collaboration with Dr. Fitch, please see addendum Starting 08/31/18 patient will be followed by Dr. Munoz History of Present Illness Chief Complaint: SOB x 1 day. Primary Care Provider: Lola Jean MD This is a 72-year-old white female who has a significant past medical history of mild intellectual disability, IDDM T2, CAD, combined systolic and diastolic CHF, PAF anticoagulated on Eliquis, cardiac pacemaker in situ, HTN, HLD, PVD, history of osteomyelitis s/p amputation toe of right foot, depression, morbid obesity who presents to [facility] ED secondary to SOB times 1 day. Patient is poor historian. When asked what brought her to ED she states, "I was having trouble breathing since yesterday." Further complains of abdominal discomfort and nausea yesterday but since resolved and weakness. She denies any recent illness, cough, sinus congestion, sore throat, post nasal drip, chest pain, orthopnea (although sleeps in lounge chair), PND, f/c/s, dizziness, lightheaded, emesis, diarrhea, change in bowel or urinary habits. Pt has chronic lower extremity venous insufficiency with chronic erythematous legs and wounds. She feels her lower extremity redness is the same, not worse. (wound pictures noted in patient chart confirms this.) Denies any change in weight or appetite. +Sick contacts where she resides. Allergies Allergy/AdvReac Type Severity Reaction Status Date / Time No Known Allergies Allergy Verified 08/30/18 11:10 Home Medications Home Medications Medication Instructions Recorded Confirmed Type amiodarone 200 mg tablet 200 mg PO DAILY 02/22/18 08/30/18 History apixaban 5 mg tablet 5 mg PO BID 02/22/18 08/30/18 History aspirin 81 mg chewable tablet 81 mg PO DAILY 02/22/18 08/30/18 History carvedilol 6.25 mg tablet 6.25 mg PO BID 02/22/18 08/30/18 History cholecalciferol (vitamin D3) 2,000 2,000 units PO DAILY 02/22/18 08/30/18 History unit capsule digoxin 125 mcg tablet 0.125 mg PO Q2D 02/22/18 08/30/18 History ferrous sulfate 325 mg (65 mg 325 mg PO BID tab 02/22/18 08/30/18 History iron) tablet,delayed release furosemide 40 mg tablet 40 mg PO QAM 02/22/18 08/30/18 History gabapentin 100 mg capsule 100 mg PO TID cap 02/22/18 08/30/18 History insulin aspar prt-insulin aspart 58 units SQ QPM ml 02/22/18 08/30/18 History 100 unit/mL (70-30) subcutaneous soln insulin aspar prt-insulin aspart 80 units SQ QAM ml 02/22/18 08/30/18 History 100 unit/mL (70-30) subcutaneous soln insulin aspart U- 100 100 unit/mL 6 units SQ QDL ml 02/22/18 08/30/18 History subcutaneous pen isosorbide mononitrate ER 30 mg 30 mg PO QAM 02/22/18 08/30/18 History tablet,extended release 24 hr sennosides 8.6 mg-docusate sodium 1 tab PO BID 02/22/18 08/30/18 History 50 mg tablet simvastatin 20 mg tablet 20 mg PO QPM 02/22/18 08/30/18 History furosemide 20 mg PO DAILY 08/30/18 08/30/18 History levothyroxine 75 mcg PO QAM 08/30/18 08/30/18 History potassium chloride 10 meq PO DAILY 08/30/18 08/30/18 History trazodone 50 mg PO HS 08/30/18 08/30/18 History Past Med/Surg History Medical History Mild intellectual disability (Chronic) Chronic venous insufficiency (Chronic) DM type 2 (diabetes mellitus, type 2) (Chronic) Atrial fibrillation (Chronic) CKD (chronic kidney disease), stage III (Chronic) HTN (hypertension) (Chronic) Coronary artery disease (Chronic) Pacemaker (Chronic) History of uterine cancer (Chronic) "s/p XRT" History of osteomyelitis (Chronic) "R third toe" Anemia (Chronic) CHF (congestive heart failure) (Chronic) A-fib (Chronic) Anemia (Chronic) CHF (congestive heart failure) (Chronic) Diabetes 1.5, managed as type 2 (Chronic) Diabetic neuropathy (Chronic) Hyperlipidemia (Chronic) Uterine cancer (Resolved) Surgical History History of lumpectomy of left breast (Resolved) History of amputation of lesser toe of right foot (Chronic) History of total bilateral knee replacement (Chronic) S/P cholecystectomy (Chronic) Status post placement of cardiac pacemaker (Chronic) S/P cardiac pacemaker procedure (Resolved) S/P cholecystectomy (Resolved) Status post bilateral knee replacements (Resolved) Family History Mother Pneumonia Social History Preferred Language: Polish Communication Ability: Effective Motor Inspection Mechanic Required: No Beliefs That Will Affect Care: None Current Living Situation: [facility] Other Current Living Situation Comment: Resides at House of Care Other Information That Helps Us Care for You: No Feels Safe at Home: Yes Safety Concerns: Feels Safe At This Time Smoking Status: Never smoker Hx Alcohol Use: No Hx Substance Use: No Review of Systems All systems reviewed & are unremarkable except as noted in HPI & below Physical Exam Vital Signs (Past 24 Hours): Last Vital Signs Temp 37.6 C H 08/30/18 12:36 Pulse 66 08/30/18 14:15 Resp 15 08/30/18 14:15 BP 118/55 L 08/30/18 14:15 Pulse Ox 96 08/30/18 14:15 Physical Exam: Gen: Morbidly obese F, lying in bed, NAD on O2 via NC, answers questions appropriately, drowsy Head: Normocephalic, Atraumatic Eyes: Sclera normal, no conjunctival injection, PERRLA, EOMI ENT: Gross hearing intact, normal pharynx, mucous membranes moist Neck: supple, no adenopathy, No JVD, no bruit, Resp: Clear to auscultation b/l with decreased breath sounds bilaterally, no wheeze, rales, rhonchi. Normal insp/exp effort, no accessory muscle use on 3L O2 via NC CV: Regular rate, regular rhythm, no murmur, rub, gallop, or ectopy Abd: +truncal obesity, +BS x 4, soft, nontender, nondistended Musculoskeletal: moves extremities active rom x 4, strength 4/5 bilaterally, good graduate nurse strength Extremities: B/L Edema with chronic venous insufficiency, erythema, mild warmth, 2 venous stasis ulcerations noted LLE calf region, erythematous wound bed, b/l pedal pulse +1 and equal, R 3rd toe amp Skin: warm, moist, no rash, negative turgor, cap refill < 2sec Neuro: Alert and oriented x 3, speech normal, good mood/affect, cran nerve 2-12 intact grossly : +yun cath draining clear yellow urine Results & Data Laboratory Results Short CBC 08/30/18 Range/Units 12:15 WBC 7.53 (4.8-10.8) K/uL Hgb 11.0 L (12.0-16.0) g/dL Hct 36.2 L (37-47) % Plt Count 165 (130-400) K/uL BMP 08/30/18 12:15 Sodium 136 Potassium 4.6 Chloride 103 Carbon Dioxide 28 BUN 58 H Creatinine 1.90 H Glucose 170 H Calcium 8.4 L Liver Function 08/30/18 Range/Units 12:15 Total Bilirubin 0.7 (0.2-1) mg/dl AST 19 (15-37) U/L ALT 25 (12-78) U/L Alkaline Phosphatase 61 (45-117) U/L Albumin 2.7 L (3.4-5.0) gm/dl Diagnostic Findings Chest CT: FINDINGS: Respiratory motion artifact. The central airways appear patent. No pne umothorax. Bilateral patchy groundglass airspace opacities seen throughout the lungs. There is also mild interlobular septal thickening. Deformity within the left lateral fourth rib may be due to old trauma. No acute fractures within the visualized osseous structures. The visualized unenhanced liver and spleen are unremarkable. Trace bilateral pleural effusions. The thyroid gland is enlarged. Coarse calcifications within the left breast which may be secondary to postsurgical change. Normal caliber thoracic aorta. The heart is mildly enlarged. Left-sided pacemaker is noted. There are coronary artery calcifications. Mild mediastinal lymphadenopathy. Dominant right peritracheal lymph node seen on image 40 and measures 1.7 cm. IMPRESSION: 1. Patchy groundglass airspace opacities seen throughout the lungs with mild interlobular septal thickening, mild cardiomegaly, and trace pleural effusions. This favors mild pulmonary edema. An atypical pneumonia could also have a similar appearance. 2. Mild mediastinal lymphadenopathy. This is nonspecific but could be seen the setting of chronic pulmonary edema. A lymphoproliferative disorder would also be in the differential diagnosis. CXR: FINDINGS: Congestive heart failure. Moderate cardiomegaly. Prominent pulmonary vasculature. IMPRESSION: Congestive heart failure. Medications Administered Discontinued Medications Furosemide (Lasix) 40 mg IV NOW STA Stop: 08/30/18 11:24 Last Admin: 08/30/18 11:31 Dose: 40 mg Documented by: [id number] Piperacillin Sod/Tazobactam Sod (Zosyn) 4.5 gm in 120 mls @ 240 mls/hr IV NOW ONE Stop: 08/30/18 11:07 Last Infusion: 08/30/18 13:12 Dose: 0 mls/hr Documented by: [id number] Admin: 08/30/18 12:36 Dose: 240 mls/hr Documented by: [id number] Vancomycin HCl 2,250 mg/ (Sodium Chloride) 545 mls @ 200 mls/hr IV NOW ONE Stop: 08/30/18 13:43 Last Infusion: 08/30/18 15:56 Dose: 0 mls/hr Documented by: [id number] Admin: 08/30/18 13:12 Dose: 200 mls/hr Documented by: [id number] Acetaminophen (Ofirmev) 65 mls @ 200 mls/hr IV NOW ONE Stop: 08/30/18 11:21 Last Infusion: 08/30/18 11:40 Dose: 0 mls/hr Documented by: [id number] Admin: 08/30/18 11:14 Dose: 200 mls/hr Documented by: [id number] Sodium Chloride (Nss) 500 mls @ 999 mls/hr IV .Q31M ONE Stop: 08/30/18 11:32 Last Infusion: 08/30/18 11:47 Dose: 0 mls/hr Documented by: [id number] Admin: 08/30/18 11:14 Dose: 999 mls/hr Documented by: [id number] ECG Rate (beats per minute): 69 Findings: + paced rhythm (V paced) Code Status & VTE Plan Code Status Full Code VTE Prophylaxis Plan VTE Prophylaxis will be ordered: Yes Reason for no VTE mechanical prophylaxis: Contraindicated (Pt with PVD and venous stasis ulcerations) Supervising Physician Co-Signing Physician Notes Patient is a 72-year-old female with mild intellectual disability, CHF and other comorbidities presents with history of shortness of breath since 1 day duration. Patient is a very poor historian. She reports associated weakness and mild abdominal discomfort, nausea since yesterday. History unreliable given patient's intellectual disability. CT chest suggestive of patchy groundglass airspace opacities, trace pleural effusions suggestive of mild pulmonary edema. Patient was also noted to have mild mediastinal lymphadenopathy suggestive of possible lymphoproliferative disorder. Patient was diagnosed to have acute respiratory failure secondary to pulmonary edema requiring supplemental oxygen to maintain saturations. DD: could be secondary to CHF, atypical pneumonia, lymphoproliferative disorder. On exam patient is chronically appearing, no distress, lungs-decreased breath sounds, clear to auscultation, S1-S2 positive murmur, abdomen is soft nontender, bilateral lower extremity erythema, chronic venous stasis changes, edema. Patient will be started on IV Lasix, monitor electrolytes and renal function. Interrogate pacemaker. Update echo. Empirically start on antibiotics for possible atypical pneumonia. May need further workup by pulmonary if patient clinically shows no improvement. I personally reviewed the record. Patient is interviewed and examined at bedside. Patient's care is coordinated with Amna Luke PA-C. Please refer to the documentation above for details of patient's presentation and for discussion of other issues. (1) Respiratory failure with hypoxia Chronicity: unspecified Qualified Code(s): J96.91 - Respiratory failure, unspecified with hypoxia (2) CHF exacerbation Heart failure type: unspecified Qualified Code(s): I50.9 - Heart failure, unspecified (3) DM type 2 (diabetes mellitus, type 2) Diabetes mellitus complication detail: with other circulatory complications Diabetes mellitus complication status: with circulatory complication Diabetes mellitus long term care pharmacist insulin use: with long term care pharmacist use Qualified Code(s): E11.59 - Type 2 diabetes mellitus with other circulatory complications; Z79.4 - long-term (current) use of insulin (4) Coronary artery disease Associated angina: without angina Coronary Disease-Associated Artery/Lesion type: [place] artery [place] vs. transplanted heart: [place] heart Qualified Code(s): I25.10 - Atherosclerotic heart disease of [place] coronary artery without angina pectoris (5) Anemia Anemia type: due to chronic kidney disease Chronic kidney disease stage: stage 4 (severe) Qualified Code(s): N18.4 - Chronic kidney disease, stage 4 (severe); D63.1 - Anemia in chronic kidney disease (6) Atrial fibrillation Atrial fibrillation type: paroxysmal Qualified Code(s): I48.0 - Paroxysmal atrial fibrillation (7) Venous stasis ulcer Laterality: left Non-pressure ulcer stage: limited to breakdown of skin Varicose vein presence: unspecified whether present Venous stasis ulcer site: calf Qualified Code(s): I83.022 - Varicose veins of left lower extremity with ulcer of calf; L97.221 - Non-pressure chronic ulcer of left calf limited to breakdown of skin (8) HTN (hypertension) Hypertension type: essential hypertension Qualified Code(s): I10 - Essential (primary) hypertension (9) Pneumonia Laterality: unspecified laterality Lung location: unspecified part of lung Pneumonia type: due to unspecified organism Qualified Code(s): J18.9 - Pneumonia, unspecified organism
[2018-08-30] MEDS ORDERED: ALUMINUM/MAGNESIUM SUSP 30 ML UDC PO PRN (16:00)
[2018-08-30] MEDS ORDERED: ACETAMINOPHEN 325 MG TAB PO PRN (16:00)
[2018-08-30] MEDS ORDERED: MAGNESIUM HYDROXIDE SUSP 30 ML UDC PO PRN (16:00)
[2018-08-30] MEDS ORDERED: CARBOHYDRATES FOR HYPOGLYCEMIA PO PRN (16:00)
[2018-08-30] MEDS ORDERED: POLYETHYLENE (MIRALAX) 17 GM PACK PO PRN (16:00)
[2018-08-30] MEDS ORDERED: DEXTROSE 50% 50 ML SYRINGE IV PRN (16:00)
[2018-08-30] MEDS ORDERED: ONDANSETRON INJ 2 MG/ML 2 ML VIAL IV PRN (16:00)
[2018-08-30] MEDS ORDERED: GLUCAGON FOR INJ 1 MG VIAL SQ PRN (16:00)
[2018-08-30] MEDS ORDERED: GLUCOSE 10 TABS/TUBE PO PRN (16:00)
[2018-08-30] MEDS ORDERED: GLUCOSE 40% GEL 15 GM TUBE PO PRN (16:00)
[2018-08-30] MEDS ORDERED: INFLUENZA VACCINE HIGH DOSE 65+ 0.5 ML SYR IM ONE (16:15)
[2018-08-30] MEDS ORDERED: INFLUENZA ADMINISTRATION CHARGE ONE (16:15)
[2018-08-30] MEDS ORDERED: MICONAZOLE NITRATE POWDER 43 GM EXT PRN (16:39)
[2018-08-30] MEDS: PIPERACILLIN/TAZOBACTAM 3.375 GM in DEXTROSE 5% 100 ML IV SCH (17:50)
[2018-08-30] MEDS: DIGOXIN 0.125 MG TAB PO SCH (17:50)
[2018-08-30] MEDS ORDERED: METOPROLOL TARTRATE 1 MG/ML VIAL IV STA (18:13)
[2018-08-30] MEDS: INSULIN ASPART 100 UNITS/ML 3 ML PEN SC SCH ×2 (18:24→20:35)
[2018-08-30] MEDS: INSULIN GLARGINE SOLOSTAR 100 UNITS/ML 3 ML PEN SC SCH (18:25)
[2018-08-30] MEDS: LEVALBUTEROL HCL 0.63 MG/3 ML NEB NEB SCH (19:52)
[2018-08-30] MEDS: DOCUSATE SODIUM/SENNA 50/8.6MG TAB PO SCH (21:09)
[2018-08-30] MEDS: APIXABAN 5 MG TABLET PO SCH (21:09)
[2018-08-30] MEDS: CARVEDILOL 6.25 MG TAB PO SCH (21:09)
[2018-08-30] MEDS: FUROSEMIDE 40 MG in SYRINGE 0 ML IV SCH (21:09)
[2018-08-30] MEDS: TRAZODONE HCL 50 MG TAB PO SCH (21:09)
[2018-08-30] MEDS: FERROUS SULFATE 325 MG TAB PO SCH (21:09)
[2018-08-30] MEDS: GABAPENTIN 100 MG CAP PO SCH (21:09)
[2018-08-30] MEDS: SIMVASTATIN 20 MG TAB PO SCH (21:09)
[2018-08-31] MEDS: LEVALBUTEROL HCL 0.63 MG/3 ML NEB NEB SCH ×4 (02:09→19:17)
[2018-08-31] MEDS: PIPERACILLIN/TAZOBACTAM 3.375 GM in DEXTROSE 5% 100 ML IV SCH ×3 (02:32→19:01)
[2018-08-31] MEDS: INSULIN GLARGINE SOLOSTAR 100 UNITS/ML 3 ML PEN SC SCH ×2 (05:37→18:56)
[2018-08-31] MEDS: LEVOTHYROXINE SODIUM 75 MCG TABLET PO SCH (05:43)
[2018-08-31 06:14] LABS: Hematocrit (blood only) 35.4 % (37-47); Hemoglobin 10.5 g/dL (12.0-16.0); Mean Corpuscular Hgb Conc 29.7 g/dL (32-36); Mean Corpuscular Volume 94.4 fL (80-100); Mean Platelet Volume 9.1 fL (7.4-10.4); Platelet Count 146 K/uL (130-400); RDW Coefficient of Variation 19.4 % (11.5-14.5); RDW Standard Deviation 67.3 fL (36.4-46.3); Red Blood Count 3.75 M/uL (4.2-5.4); White Blood Count 4.58 K/uL (4.8-10.8)
[2018-08-31 06:42] LABS: BUN Creatinine Ratio 28.6 (10-20); Calcium 7.8 mg/dl (8.5-10.1); Creatinine Clr Calc Pharmacy 27.8 ml/min; Est GFR (Non-African American) 23.3; Magnesium 2.4 mg/dl (1.8-2.4)
[2018-08-31] MEDS ORDERED: PERFLUTREN LIPID MICROSPHERE (DEFINITY) IV ONE (07:11)
[2018-08-31 07:49] LABS: Estimated Average Glucose 146 mg/dl; Hemoglobin A1C 6.7 % (4.5-5.6)
[2018-08-31] MEDS: AMIODARONE 200 MG TAB PO SCH (08:12)
[2018-08-31] MEDS: POTASSIUM CHLORIDE 10 MEQ TABCR PO SCH (08:12)
[2018-08-31] MEDS: GABAPENTIN 100 MG CAP PO SCH ×3 (08:12→21:38)
[2018-08-31] MEDS: APIXABAN 5 MG TABLET PO SCH ×2 (08:12→21:38)
[2018-08-31] MEDS: DOCUSATE SODIUM/SENNA 50/8.6MG TAB PO SCH ×2 (08:12→21:38)
[2018-08-31] MEDS: ISOSORBIDE MONO EXTENDED REL 30 MG TABCR PO SCH (08:12)
[2018-08-31] MEDS: FERROUS SULFATE 325 MG TAB PO SCH ×2 (08:12→21:38)
[2018-08-31] MEDS: FUROSEMIDE 40 MG in SYRINGE 0 ML IV SCH ×2 (08:12→22:48)
[2018-08-31] MEDS: CHOLECALCIFEROL 1,000 UNITS TAB PO SCH (08:13)
[2018-08-31] MEDS: ASPIRIN 81 MG ECTAB PO SCH (08:13)
[2018-08-31] MEDS: CARVEDILOL 6.25 MG TAB PO SCH ×2 (08:13→21:37)
[2018-08-31] MEDS: INSULIN ASPART 100 UNITS/ML 3 ML PEN SC SCH ×4 (08:14→21:39)
[2018-08-31] MEDS ORDERED: FUROSEMIDE 40 MG TAB PO SCH ×2 (09:00→15:00)
--- NOTE | 2018-08-31 14:17 | Hospitalist Progress Note ---
Date of Service August 31, 2018 Assessment & Plan (1) Respiratory failure with hypoxia: Secondary to pulmonary edema and may be complicated by pneumonitis/pneumonia CXR/CT Scan concerning for mild pulmonary edema vs atypical PNA BNP elevated 2094 Has been on Lasix 40 mg IV twice daily Oxygen and nebulized bronchodilators as needed Has been getting better Discussed with pulmonary and will continue current dose of diuretics Chest x-ray tomorrow to evaluate pulmonary edema We will get pulmonary evaluation if not improved (2) Pneumonia: -CT scan suggestive of bilateral basal groundglass opacity consistent with infection and/or pulmonary edema -continue broad spectrum antibiotic with vanco/zosyn -MRSA nasal swab ordered, if negative can D/C Vanco -pulmonary toilet with xopenex, incentive spirometry -Continue current antibiotic (3) Mediastinal lymphadenopathy: -Likely secondary to pneumonitis/could be viral -treatment as above, will need appropriate follow up to determine resolution (4) CHF exacerbation: -CT scan and chest x-ray are suggestive of pulmonary edema -daily weights, strict I and O -monitor for diuresis -continue lasix, BB, imdur (5) Coronary artery disease: -no current CP, troponin wnl -continue ASA, imdur, statin,BB (6) HTN (hypertension): -blood pressure stable, continue BB, Lasix (7) Atrial fibrillation: -rate and rhythm controlled on amiodarone, digoxin, coreg -apixaban for anticoagulation -Rate is controlled (8) DM type 2 (diabetes mellitus, type 2): -A1C 6.6 03/10/18, repeat in a.m. -hold outpatient 70/[address] on lantus/novolog per protocol (9) CKD (chronic kidney disease), stage IV: -baaseline Cr 1.9-2.1 -bun/cr 58 and 1.8 today -monitor bmp, avoid nephrotoxins -Monitor PRP (10) Chronic venous insufficiency: -with current venous stasis ulcerations x 2 LLE -consult wound care -b/l lower extremities are erythematous, slightly warm; however, compared to images from prior wound care visits it appears similar. WBC is WNL, but mildly febrile -concern for cellulitis in differential (11) Venous stasis ulcer: -as above (12) Anemia: -H/H stable at 11.0 and 36.2 -follow cbc (13) DVT prophylaxis: -continue apixaban, avoid mechanical prophylaxis given venous insufficiency Disposition: to be determined, case management consulted Follow up: PCP Dr. Lola Jean upon discharge Subjective She is a 72-year-old white female who has a significant past medical history of mild intellectual disability, IDDM T2, CAD, combined systolic and diastolic CHF, PAF anticoagulated on Eliquis, cardiac pacemaker in situ, HTN, HLD, PVD, history of osteomyelitis s/p amputation toe of right foot, depression, morbid obesity who presents to [facility] ED secondary to SOB times 1 day. 08/31 The patient was seen and examined in medical floor She has been feeling a lot better since admission Heart shortness of breath is improved and she feels a lot better generally Denies any fever and/or chills, denies any abdominal pain, nausea and/or vomiting Physical Exam Vital Signs (Past 24 Hours): Last Vital Signs Temp 37.0 C 08/31/18 11:29 Pulse 60 08/31/18 13:50 Resp 18 08/31/18 13:50 BP 131/62 08/31/18 11:29 Pulse Ox 95 08/31/18 13:50 Physical Exam: Lying in bed comfortably Constitutional: WD/WN, vitals as above Eyes: PERRL, conjunctivae normal, anicteric sclerae ENMT: external ear and nose normal, oropharynx normal Neck: trachea midline, no thyromegaly Respiratory: normal respiratory effort, + respiratory distress (Minimal distre ss at rest) and + cough Auscultation: + diminished lung sounds and + crackles (Occasional at the bases) Cardiovascular: Rate/Rhythm: regular rate and regular rhythm Heart Sounds: normal S1 and normal S2 Gastrointestinal (Abdomen): Inspection/Auscultation: abdomen normal to inspection and normal bowel sounds Percussion/Palpation: abdomen soft Neurologic: Alert, awake and oriented x3 Results & Data Laboratory Results Short CBC 08/31/18 Range/Units 05:44 WBC 4.58 L (4.8-10.8) K/uL Hgb 10.5 L (12.0-16.0) g/dL Hct 35.4 L (37-47) % Plt Count 146 (130-400) K/uL BMP 08/31/18 05:44 Sodium 137 Potassium 4.0 Chloride 103 Carbon Dioxide 29 BUN 59 H Creatinine 2.05 H Glucose 141 H Calcium 7.8 L Medications Administered Current Inpatient Medications Acetaminophen (Tylenol) 650 mg PO Q4H PRN PRN Reason: Pain or Fever Stop: 09/29/18 15:59 Al Hydrox/Mg Hydrox/Simethicone (Maalox) 15 ml PO Q4H PRN PRN Reason: Dyspepsia Stop: 09/29/18 15:59 Amiodarone HCl (Cordarone) 200 mg PO DAILY [facility] Stop: 09/30/18 08:59 Last Admin: 08/31/18 08:12 Dose: 200 mg Documented by: Apixaban (Eliquis) 5 mg PO BID [facility] Stop: 09/29/18 20:59 Last Admin: 08/31/18 08:12 Dose: 5 mg Documented by: Aspirin (Ecotrin Ectab) 81 mg PO DAILY [facility] Stop: 09/30/18 08:59 Last Admin: 08/31/18 08:13 Dose: 81 mg Documented by: Carvedilol (Coreg) 6.25 mg PO BID [facility] Stop: 09/29/18 20:59 Last Admin: 08/31/18 08:13 Dose: 6.25 mg Documented by: Dextrose (Dextrose 50%) 25 - 50 ml IV UD PRN; Protocol PRN Reason: Hypoglycemia Protocol Stop: 09/29/18 15:59 Digoxin (Lanoxin) 0.125 mg PO Q2D@1600 [facility] Stop: 09/29/18 15:59 Last Admin: 08/30/18 17:50 Dose: 0.125 mg Documented by: Ferrous Sulfate (Feosol) 325 mg PO BID [facility] Stop: 09/29/18 20:59 Last Admin: 08/31/18 08:12 Dose: 325 mg Documented by: Gabapentin (Neurontin) 100 mg PO TID [facility] Stop: 09/29/18 20:59 Last Admin: 08/31/18 12:37 Dose: 100 mg Documented by: Glucagon (Glucagen) 1 mg SQ UD PRN; Protocol PRN Reason: Hypoglycemia Protocol Stop: 09/29/18 15:59 Glucose (Glucose 40%) 15 - 30 gm PO UD PRN; Protocol PRN Reason: Hypoglycemia Protocol Stop: 09/29/18 15:59 Glucose (Dex4 Glucose) 4 - 8 tabs PO UD PRN; Protocol PRN Reason: Hypoglycemia Protocol Stop: 09/29/18 15:59 Piperacillin Sod/Tazobactam (Sod 3.375 gm/ Dextrose) 115 mls @ 28.75 mls/hr IV Q8H [facility]; Protocol Stop: 09/01/18 23:59 Last Admin: 08/31/18 10:50 Dose: 28.8 mls/hr Documented by: Furosemide 40 mg/ Syringe 4 mls @ 4 mls/min IV BID [facility] Stop: 09/29/18 20:59 Last Admin: 08/31/18 08:12 Dose: 4 mls/min Documented by: Insulin Aspart (Novolog Flexpen) 0 units SC ACHS [facility] Stop: 09/29/18 16:29 Last Admin: 08/31/18 12:37 Dose: 11 units Documented by: Insulin Glargine (Lantus Solostar Pen) 0 - 30 units SC Q12H [facility]; Protocol Stop: 09/29/18 17:59 Last Admin: 08/31/18 05:37 Dose: 15 units Documented by: Isosorbide Mononitrate (Imdur Extended Rel) 30 mg PO QAM [facility] Stop: 09/30/18 08:59 Last Admin: 08/31/18 08:12 Dose: 30 mg Documented by: Levalbuterol HCl (Xopenex 0.63 Mg/3 Ml Neb) 0.63 mg NEB Q6R [facility] Stop: 09/29/18 19:59 Last Admin: 08/31/18 13:49 Dose: 0.63 mg Documented by: Levothyroxine Sodium (Synthroid) 75 mcg PO DAILYBB [facility] Stop: 09/30/18 06:29 Last Admin: 08/31/18 05:43 Dose: 75 mcg Documented by: Magnesium Hydroxide (Milk Of Magnesia) 30 ml PO Q12H PRN PRN Reason: Constipation Stop: 09/29/18 15:59 Miconazole Nitrate (Desenex) 1 appln EXT PRN PRN PRN Reason: Affected Skin Folds Stop: 09/29/18 16:38 Last Admin: 08/30/18 17:50 Dose: 1 appln Documented by: Miscellaneous (Carbohydrates For Hypoglycemia) 15 - 30 gm PO UD PRN PRN Reason: Hypoglycemia Treatment Stop: 09/29/18 15:59 Miscellaneous Information (Consult) 1 ea N/A UD PRN PRN Reason: Consult Stop: 09/29/18 10:37 Ondansetron HCl (Zofran) 4 mg IV Q6H PRN PRN Reason: Nausea Stop: 09/29/18 15:59 Polyethylene Glycol (Miralax Powder Packet) 17 gm PO DAILY PRN PRN Reason: Constipation Stop: 09/29/18 15:59 Potassium Chloride (Klor-Con M10) 10 meq PO DAILY [facility] Stop: 09/30/18 08:59 Last Admin: 08/31/18 08:12 Dose: 10 meq Documented by: Senna/Docusate Sodium (Senokot S) 1 tab PO BID [facility] Stop: 09/29/18 20:59 Last Admin: 08/31/18 08:12 Dose: 1 tab Documented by: Simvastatin (Zocor) 20 mg PO QPM [facility] Stop: 09/29/18 20:59 Last Admin: 08/30/18 21:09 Dose: 20 mg Documented by: Trazodone HCl (Desyrel) 50 mg PO HS [facility] Stop: 09/29/18 20:59 Last Admin: 08/30/18 21:09 Dose: 50 mg Documented by: Vitamin D (Vitamin D3) 2,000 units PO DAILY [facility] Stop: 09/30/18 08:59 Last Admin: 08/31/18 08:13 Dose: 2,000 units Documented by: (1) Respiratory failure with hypoxia Chronicity: unspecified Qualified Code(s): J96.91 - Respiratory failure, unspecified with hypoxia (2) Pneumonia Pneumonia type: due to unspecified organism Laterality: unspecified laterality Lung location: unspecified part of lung Qualified Code(s): J18.9 - Pneumonia, unspecified organism (3) CHF exacerbation Heart failure type: unspecified Qualified Code(s): I50.9 - Heart failure, unspecified (4) Coronary artery disease Coronary Disease-Associated Artery/Lesion type: [place] artery [place] vs. transplanted heart: [place] heart Associated angina: without angina Qualified Code(s): I25.10 - Atherosclerotic heart disease of [place] coronary artery without angina pectoris (5) HTN (hypertension) Hypertension type: essential hypertension Qualified Code(s): I10 - Essential (primary) hypertension (6) Atrial fibrillation Atrial fibrillation type: paroxysmal Qualified Code(s): I48.0 - Paroxysmal atrial fibrillation (7) DM type 2 (diabetes mellitus, type 2) Diabetes mellitus long-term insulin use: with moth exterminator use Diabetes mellitus complication status: with circulatory complication Diabetes mellitus complication detail: with other circulatory complications Qualified Code(s): E11.59 - Type 2 diabetes mellitus with other circulatory complications; Z79.4 - retirement (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
[2018-08-31] MEDS: TRAZODONE HCL 50 MG TAB PO SCH (21:38)
[2018-08-31] MEDS: SIMVASTATIN 20 MG TAB PO SCH (21:38)
[2018-09-01] MEDS: LEVALBUTEROL HCL 0.63 MG/3 ML NEB NEB SCH ×4 (01:55→19:19)
[2018-09-01] MEDS: PIPERACILLIN/TAZOBACTAM 3.375 GM in DEXTROSE 5% 100 ML IV SCH ×3 (02:13→18:26)
[2018-09-01] MEDS: INSULIN GLARGINE SOLOSTAR 100 UNITS/ML 3 ML PEN SC SCH ×2 (05:42→18:22)
[2018-09-01] MEDS: LEVOTHYROXINE SODIUM 75 MCG TABLET PO SCH (05:59)
[2018-09-01 06:18] LABS: Basophils # (auto) 0.01 K/uL (0-0.2); Basophils % (auto) 0.2 %; Eosinophils % (auto) 3.4 %; Hematocrit (blood only) 35.5 % (37-47); Hemoglobin 10.6 g/dL (12.0-16.0); Immature Granulocytes # (auto) 0.01 K/uL (0.00-0.02); Immature Granulocytes % (auto) 0.2 %; Lymphocytes % (auto) 8.6 %; Mean Corpuscular Hgb Conc 29.9 g/dL (32-36); Mean Corpuscular Volume 94.7 fL (80-100); Mean Platelet Volume 8.8 fL (7.4-10.4); Monocytes # (auto) 0.49 K/uL (0.11-0.59); Monocytes % (auto) 8.4 %; Neutrophils # (auto) 4.59 K/uL (1.4-6.5); Neutrophils % (auto) 79.2 %; Platelet Count 156 K/uL (130-400); RDW Coefficient of Variation 19.2 % (11.5-14.5); RDW Standard Deviation 65.5 fL (36.4-46.3); Red Blood Count 3.75 M/uL (4.2-5.4)
[2018-09-01 07:02] LABS: BUN Creatinine Ratio 27.8 (10-20); Creatinine Clr Calc Pharmacy 31.9 ml/min; Est GFR (African American) 31.8; Est GFR (Non-African American) 27.4; Magnesium 2.2 mg/dl (1.8-2.4); Potassium 3.5 mmol/L (3.5-5.1)
[2018-09-01] MEDS: CARVEDILOL 6.25 MG TAB PO SCH ×2 (07:50→21:17)
[2018-09-01] MEDS: ISOSORBIDE MONO EXTENDED REL 30 MG TABCR PO SCH (07:50)
[2018-09-01] MEDS: ASPIRIN 81 MG ECTAB PO SCH (07:51)
[2018-09-01] MEDS: DOCUSATE SODIUM/SENNA 50/8.6MG TAB PO SCH ×2 (07:51→21:17)
[2018-09-01] MEDS: FERROUS SULFATE 325 MG TAB PO SCH ×2 (07:51→21:17)
[2018-09-01] MEDS: AMIODARONE 200 MG TAB PO SCH (07:51)
[2018-09-01] MEDS: APIXABAN 5 MG TABLET PO SCH ×2 (07:51→21:17)
[2018-09-01] MEDS: CHOLECALCIFEROL 1,000 UNITS TAB PO SCH (07:51)
[2018-09-01] MEDS: POTASSIUM CHLORIDE 10 MEQ TABCR PO SCH (07:51)
[2018-09-01] MEDS: GABAPENTIN 100 MG CAP PO SCH ×3 (07:51→21:17)
[2018-09-01] MEDS: INSULIN ASPART 100 UNITS/ML 3 ML PEN SC SCH ×4 (07:52→21:15)
[2018-09-01] MEDS: FUROSEMIDE 40 MG in SYRINGE 0 ML IV SCH ×2 (07:57→23:46)
--- NOTE | 2018-09-01 09:30 | XRay Report ---
XR chest 2V routine HISTORY: 72 years-old Female chf acute shortness of breath with pulmonary edema COMPARISON: Chest radiograph and CT chest 08/30/2018 TECHNIQUE: PA and lateral views of the chest FINDINGS: Cardiac silhouette is enlarged, unchanged. Coronary arterial stents noted. Calcification the thoracic aortic arch. Stable positioning of the left subclavian tear/AICD. There is no pneumothorax. Trace pl eural effusions redemonstrated. Pulmonary vascular congestion with bilateral interstitial opacities, slightly decreased from comparison. There is improved aeration of the lung bases as well. Minimal lef t basilar opacities suggestive of probable atelectasis. Degenerative changes of the shoulders and spi ne. IMPRESSION: 1. Cardiomegaly with mildly improved pulmonary edema. 2. Trace pleural effusions. The above report was generated using voice recognition software. It may contain grammatical, syntax o r spelling errors. Electronically signed by: Larry Hyde M.D. 09/01/2018 9:28 AM
[2018-09-01] MEDS: DOXYCYCLINE HYCLATE 100 MG in DEXTROSE 5% 100 ML IV SCH ×2 (10:27→21:21)
--- NOTE | 2018-09-01 15:45 | Hospitalist Progress Note ---
Date of Service September 01, 2018 Assessment & Plan (1) Respiratory failure with hypoxia: Secondary to pulmonary edema and may be complicated by pneumonitis/pneumonia CXR/CT Scan concerning for mild pulmonary edema vs atypical PNA BNP elevated 2094 Has been on Lasix 40 mg IV twice daily Oxygen and nebulized bronchodilators as needed Has been getting better Discussed with pulmonary and will continue current dose of diuretics Chest x-ray tomorrow to evaluate pulmonary edema We will get pulmonary evaluation if not improved Repeat chest x-ray did show some improvement of pulmonary edema Clinically she has been feeling a lot better We will continue with intravenous Lasix for now Likely to be discharged tomorrow Requiring 3 L of nasal cannula oxygen to maintain saturation (2) Pneumonia: -CT scan suggestive of bilateral basal groundglass opacity consistent with infection and/or pulmonary edema -continue broad spectrum antibiotic with vanco/zosyn -MRSA nasal swab ordered, if negative can D/C Vanco -pulmonary toilet with xopenex, incentive spirometry -Continue current antibiotic -Will give doxycycline orally on discharge (3) Mediastinal lymphadenopathy: -Likely secondary to pneumonitis/could be viral -treatment as above, will need appropriate follow up to determine resolution (4) CHF exacerbation: -CT scan and chest x-ray are suggestive of pulmonary edema -daily weights, strict I and O -monitor for diuresis -continue lasix, BB, imdur -Continue intravenous Lasix for now (5) Coronary artery disease: -no current CP, troponin wnl -continue ASA, imdur, statin,BB -No acute cardiac symptoms (6) HTN (hypertension): -blood pressure stable, continue BB, Lasix (7) Atrial fibrillation: -rate and rhythm controlled on amiodarone, digoxin, coreg -apixaban for anticoagulation -Rate is controlled (8) DM type 2 (diabetes mellitus, type 2): -A1C 6.6 03/10/18, repeat in a.m. -hold outpatient 70/[address] on lantus/novolog per protocol (9) CKD (chronic kidney disease), stage IV: -baaseline Cr 1.9-2.1 -bun/cr 58 and 1.8 today -monitor bmp, avoid nephrotoxins -Monitor PRP-remained stable (10) Chronic venous insufficiency: -with current venous stasis ulcerations x 2 LLE -consult wound care -b/l lower extremities are erythematous, slightly warm; however, compared to images from prior wound care visits it appears similar. WBC is WNL, but mildly febrile -concern for cellulitis in differential (11) Venous stasis ulcer: -as above (12) Anemia: -H/H stable at 11.0 and 36.2 -follow cbc (13) DVT prophylaxis: -continue apixaban, avoid mechanical prophylaxis given venous insufficiency Disposition: to be determined, case management consulted Likely discharge tomorrow Subjective She is a 72-year-old white female who has a significant past medical history of mild intellectual disability, IDDM T2, CAD, combined systolic and diastolic CHF, PAF anticoagulated on Eliquis, cardiac pacemaker in situ, HTN, HLD, PVD, history of osteomyelitis s/p amputation toe of right foot, depression, morbid obesity who presents to [facility] ED secondary to SOB times 1 day. 08/31 The patient was seen and examined in medical floor She has been feeling a lot better since admission Heart shortness of breath is improved and she feels a lot better generally Denies any fever and/or chills, denies any abdominal pain, nausea and/or vomiting 09/01 She has been feeling a lot better No shortness of breath at rest Still requiring oxygen at rest Repeat chest x-ray showed some improvement of pulmonary edema Physical Exam Vital Signs (Past 24 Hours): Last Vital Signs Temp 36.9 C 09/01/18 15:21 Pulse 60 09/01/18 15:21 Resp 24 09/01/18 15:21 BP 97/53 L 09/01/18 15:21 Pulse Ox 96 09/01/18 15:21 Physical Exam: No apparent distress at rest Constitutional: WD/WN, vitals as above Eyes: PERRL, conjunctivae normal, anicteric sclerae ENMT: external ear and nose normal, oropharynx normal Neck: trachea midline, no thyromegaly Respiratory: normal respiratory effort and + cough Auscultation: + diminished lung sounds and + crackles (Occasional at the bases) Cardiovascular: Rate/Rhythm: regular rate and regular rhythm Heart Sounds: normal S1 and normal S2 Gastrointestinal (Abdomen): Inspection/Auscultation: abdomen normal to inspection and normal bowel sounds Percussion/Palpation: abdomen soft Musculoskeletal: Chronic ischemic changes in both legs. No acute arthritis Neurologic: Alert and awake. Generally weak. Ambulates with the help of wheelchair. Results & Data Laboratory Results Short CBC 09/01/18 Range/Units 05:59 WBC 5.80 (4.8-10.8) K/uL Hgb 10.6 L (12.0-16.0) g/dL Hct 35.5 L (37-47) % Plt Count 156 (130-400) K/uL BMP 09/01/18 05:59 Sodium 140 Potassium 3.5 Chloride 101 Carbon Dioxide 35 H BUN 50 H Creatinine 1.79 H Glucose 122 H Calcium 8.0 L Medications Administered Current Inpatient Medications Acetaminophen (Tylenol) 650 mg PO Q4H PRN PRN Reason: Pain or Fever Stop: 09/29/18 15:59 Al Hydrox/Mg Hydrox/Simethicone (Maalox) 15 ml PO Q4H PRN PRN Reason: Dyspepsia Stop: 09/29/18 15:59 Amiodarone HCl (Cordarone) 200 mg PO DAILY [facility] Stop: 09/30/18 08:59 Last Admin: 09/01/18 07:51 Dose: 200 mg Documented by: Apixaban (Eliquis) 5 mg PO BID [facility] Stop: 09/29/18 20:59 Last Admin: 09/01/18 07:51 Dose: 5 mg Documented by: Aspirin (Ecotrin Ectab) 81 mg PO DAILY [facility] Stop: 09/30/18 08:59 Last Admin: 09/01/18 07:51 Dose: 81 mg Documented by: Carvedilol (Coreg) 6.25 mg PO BID [facility] Stop: 09/29/18 20:59 Last Admin: 09/01/18 07:50 Dose: 6.25 mg Documented by: Dextrose (Dextrose 50%) 25 - 50 ml IV UD PRN; Protocol PRN Reason: Hypoglycemia Protocol Stop: 09/29/18 15:59 Digoxin (Lanoxin) 0.125 mg PO Q2D@1600 [facility] Stop: 09/29/18 15:59 Last Admin: 08/30/18 17:50 Dose: 0.125 mg Documented by: Ferrous Sulfate (Feosol) 325 mg PO BID [facility] Stop: 09/29/18 20:59 Last Admin: 09/01/18 07:51 Dose: 325 mg Documented by: Gabapentin (Neurontin) 100 mg PO TID [facility] Stop: 09/29/18 20:59 Last Admin: 09/01/18 12:22 Dose: 100 mg Documented by: Glucagon (Glucagen) 1 mg SQ UD PRN; Protocol PRN Reason: Hypoglycemia Protocol Stop: 09/29/18 15:59 Glucose (Glucose 40%) 15 - 30 gm PO UD PRN; Protocol PRN Reason: Hypoglycemia Protocol Stop: 09/29/18 15:59 Glucose (Dex4 Glucose) 4 - 8 tabs PO UD PRN; Protocol PRN Reason: Hypoglycemia Protocol Stop: 09/29/18 15:59 Piperacillin Sod/Tazobactam (Sod 3.375 gm/ Dextrose) 115 mls @ 28.75 mls/hr IV Q8H [facility]; Protocol Stop: 09/06/18 23:59 Last Infusion: 09/01/18 14:16 Dose: Infused Documented by: Furosemide 40 mg/ Syringe 4 mls @ 4 mls/min IV BID [facility] Stop: 09/29/18 20:59 Last Admin: 09/01/18 07:57 Dose: 4 mls/min Documented by: Doxycycline Hyclate 100 mg/ (Dextrose) 110 mls @ 55 mls/hr IV Q12H [facility] Stop: 09/08/18 09:59 Last Infusion: 09/01/18 12:31 Dose: Infused Documented by: Insulin Aspart (Novolog Flexpen) 0 units SC ACHS [facility] Stop: 09/29/18 16:29 Last Admin: 09/01/18 12:22 Dose: 19 units Documented by: Insulin Glargine (Lantus Solostar Pen) 0 - 30 units SC Q12H [facility]; Protocol Stop: 09/29/18 17:59 Last Admin: 09/01/18 05:42 Dose: 15 units Documented by: Isosorbide Mononitrate (Imdur Extended Rel) 30 mg PO QAM [facility] Stop: 09/30/18 08:59 Last Admin: 09/01/18 07:50 Dose: 30 mg Documented by: Levalbuterol HCl (Xopenex 0.63 Mg/3 Ml Neb) 0.63 mg NEB Q6R [facility] Stop: 09/29/18 19:59 Last Admin: 09/01/18 14:05 Dose: 0.63 mg Documented by: Levothyroxine Sodium (Synthroid) 75 mcg PO DAILYBB [facility] Stop: 09/30/18 06:29 Last Admin: 09/01/18 05:59 Dose: 75 mcg Documented by: Magnesium Hydroxide (Milk Of Magnesia) 30 ml PO Q12H PRN PRN Reason: Constipation Stop: 09/29/18 15:59 Miconazole Nitrate (Desenex) 1 appln EXT PRN PRN PRN Reason: Affected Skin Folds Stop: 09/29/18 16:38 Last Admin: 08/30/18 17:50 Dose: 1 appln Documented by: Miscellaneous (Carbohydrates For Hypoglycemia) 15 - 30 gm PO UD PRN PRN Reason: Hypoglycemia Treatment Stop: 09/29/18 15:59 Miscellaneous Information (Consult) 1 ea N/A UD PRN PRN Reason: Consult Stop: 09/29/18 10:37 Ondansetron HCl (Zofran) 4 mg IV Q6H PRN PRN Reason: Nausea Stop: 09/29/18 15:59 Polyethylene Glycol (Miralax Powder Packet) 17 gm PO DAILY PRN PRN Reason: Constipation Stop: 09/29/18 15:59 Potassium Chloride (Klor-Con M10) 10 meq PO DAILY [facility] Stop: 09/30/18 08:59 Last Admin: 09/01/18 07:51 Dose: 10 meq Documented by: Senna/Docusate Sodium (Senokot S) 1 tab PO BID [facility] Stop: 09/29/18 20:59 Last Admin: 09/01/18 07:51 Dose: 1 tab Documented by: Simvastatin (Zocor) 20 mg PO QPM [facility] Stop: 09/29/18 20:59 Last Admin: 08/31/18 21:38 Dose: 20 mg Documented by: Trazodone HCl (Desyrel) 50 mg PO HS [facility] Stop: 09/29/18 20:59 Last Admin: 08/31/18 21:38 Dose: 50 mg Documented by: Vitamin D (Vitamin D3) 2,000 units PO DAILY [facility] Stop: 09/30/18 08:59 Last Admin: 09/01/18 07:51 Dose: 2,000 units Documented by: (1) Respiratory failure with hypoxia Chronicity: unspecified Qualified Code(s): J96.91 - Respiratory failure, unspecified with hypoxia (2) Pneumonia Pneumonia type: due to unspecified organism Laterality: unspecified laterality Lung location: unspecified part of lung Qualified Code(s): J18.9 - Pneumonia, unspecified organism (3) CHF exacerbation Heart failure type: unspecified Qualified Code(s): I50.9 - Heart failure, uns pecified (4) Coronary artery disease Coronary Disease-Associated Artery/Lesion type: [place] artery [place] vs. transplanted heart: [place] heart Associated angina: without angina Qualified Code(s): I25.10 - Atherosclerotic heart disease of [place] coronary artery without angina pectoris (5) HTN (hypertension) Hypertension type: essential hypertension Qualified Code(s): I10 - Essential (primary) hypertension (6) Atrial fibrillation Atrial fibrillation type: paroxysmal Qualified Code(s): I48.0 - Paroxysmal atrial fibrillation (7) DM type 2 (diabetes mellitus, type 2) Diabetes mellitus terminal clerk insulin use: with terminal clerk use Diabetes mellitus complication status: with circulatory complication Diabetes mellitus complication detail: with other circulatory complications Qualified Code(s): E11.59 - Type 2 diabetes mellitus with other circulatory complications; Z79.4 - group home (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
[2018-09-01] MEDS: DIGOXIN 0.125 MG TAB PO SCH (15:59)
[2018-09-01] MEDS: SIMVASTATIN 20 MG TAB PO SCH (21:17)
[2018-09-01] MEDS: TRAZODONE HCL 50 MG TAB PO SCH (21:17)
[2018-09-02] MEDS: LEVALBUTEROL HCL 0.63 MG/3 ML NEB NEB SCH ×3 (01:23→13:52)
[2018-09-02] MEDS: PIPERACILLIN/TAZOBACTAM 3.375 GM in DEXTROSE 5% 100 ML IV SCH ×2 (03:26→11:11)
[2018-09-02] MEDS: FUROSEMIDE 40 MG in SYRINGE 0 ML IV SCH ×2 (06:23→09:20)
[2018-09-02] MEDS: INSULIN GLARGINE SOLOSTAR 100 UNITS/ML 3 ML PEN SC SCH (06:24)
[2018-09-02] MEDS: LEVOTHYROXINE SODIUM 75 MCG TABLET PO SCH (06:25)
[2018-09-02 09:07] LABS: BUN Creatinine Ratio 24.8 (10-20); Calcium 8.9 mg/dl (8.5-10.1); Creatinine Clr Calc Pharmacy 35.1 ml/min; Est GFR (African American) 36.4; Est GFR (Non-African American) 31.4; Magnesium 2.3 mg/dl (1.8-2.4); Potassium 3.3 mmol/L (3.5-5.1)
[2018-09-02] MEDS: INSULIN ASPART 100 UNITS/ML 3 ML PEN SC SCH ×3 (09:10→12:52)
[2018-09-02] MEDS: CARVEDILOL 6.25 MG TAB PO SCH (09:13)
[2018-09-02] MEDS: AMIODARONE 200 MG TAB PO SCH (09:14)
[2018-09-02] MEDS: ASPIRIN 81 MG ECTAB PO SCH (09:14)
[2018-09-02] MEDS: FERROUS SULFATE 325 MG TAB PO SCH (09:15)
[2018-09-02] MEDS: APIXABAN 5 MG TABLET PO SCH (09:16)
[2018-09-02] MEDS: ISOSORBIDE MONO EXTENDED REL 30 MG TABCR PO SCH (09:17)
[2018-09-02] MEDS: POTASSIUM CHLORIDE 10 MEQ TABCR PO SCH (09:18)
[2018-09-02] MEDS: GABAPENTIN 100 MG CAP PO SCH ×2 (09:19→14:39)
[2018-09-02] MEDS: DOCUSATE SODIUM/SENNA 50/8.6MG TAB PO SCH (09:19)
[2018-09-02] MEDS: CHOLECALCIFEROL 1,000 UNITS TAB PO SCH (09:20)
--- NOTE | 2018-09-02 10:17 | Hospitalist Progress Note ---
Date of Service September 02, 2018 Assessment & Plan (1) Respiratory failure with hypoxia: Secondary to pulmonary edema and may be complicated by pneumonitis/pneumonia CXR/CT Scan concerning for mild pulmonary edema vs atypical PNA BNP elevated 2094 Has been on Lasix 40 mg IV twice daily Oxygen and nebulized bronchodilators as needed Has been getting better Discussed with pulmonary and will continue current dose of diuretics Chest x-ray tomorrow to evaluate pulmonary edema We will get pulmonary evaluation if not improved Repeat chest x-ray did show some improvement of pulmonary edema Clinically she has been feeling a lot better We will continue with intravenous Lasix for now Likely to be discharged tomorrow Requiring 3 L of nasal cannula oxygen to maintain saturation Clinically stable and denies any symptoms Wants to be discharged today (2) Pneumonia: -CT scan suggestive of bilateral basal groundglass opacity consistent with infection and/or pulmonary edema -continue broad spectrum antibiotic with vanco/zosyn -MRSA nasal swab ordered, if negative can D/C Vanco -pulmonary toilet with xopenex, incentive spirometry -Continue current antibiotic -Will give doxycycline orally on discharge -Denies any cough and no shortness of breath at rest (3) Mediastinal lymphadenopathy: -Likely secondary to pneumonitis/could be viral -treatment as above, will need appropriate follow up to determine resolution -Likely secondary to reactive (4) CHF exacerbation: -CT scan and chest x-ray are suggestive of pulmonary edema -daily weights, strict I and O -monitor for diuresis -continue lasix, BB, imdur -Continue intravenous Lasix for now -We will continue with her oral torsemide on discharge (5) Coronary artery disease: -no current CP, troponin wnl -continue ASA, imdur, statin,BB -No acute cardiac symptoms (6) HTN (hypertension): -blood pressure stable, continue BB, Lasix (7) Atrial fibrillation: -rate and rhythm controlled on amiodarone, digoxin, coreg -apixaban for anticoagulation -Rate is controlled (8) DM type 2 (diabetes mellitus, type 2): -A1C 6.6 03/10/18, repeat in a.m. -hold outpatient 70/[address] on lantus/novolog per protocol (9) CKD (chronic kidney disease), stage IV: -baaseline Cr 1.9-2.1 -bun/cr 58 and 1.8 today -monitor bmp, avoid nephrotoxins -Monitor PRP-remained stable -Kidney function remains stable with creatinine 1.6 on 09/02 -Will give potassium supplement (10) Chronic venous insufficiency: -with current venous stasis ulcerations x 2 LLE -consult wound care -b/l lower extremities are erythematous, slightly warm; however, compared to images from prior wound care visits it appears similar. WBC is WNL, but mildly febrile -concern for cellulitis in differential (11) Venous stasis ulcer: -as above (12) Anemia: -H/H stable at 11.0 and 36.2 -follow cbc -Hemoglobin 10.6 on 09/01 (13) DVT prophylaxis: -continue apixaban, avoid mechanical prophylaxis given venous insufficiency Disposition: to be determined, case management consulted Likely discharge today Subjective She is a 72-year-old white female who has a significant past medical history of mild intellectual disability, IDDM T2, CAD, combined systolic and diastolic CHF, PAF anticoagulated on Eliquis, cardiac pacemaker in situ, HTN, HLD, PVD, history of osteomyelitis s/p amputation toe of right foot, depression, morbid obesity who presents to [facility] ED secondary to SOB times 1 day. 08/31 The patient was seen and examined in medical floor She has been feeling a lot better since admission Heart shortness of breath is improved and she feels a lot better generally Denies any fever and/or chills, denies any abdominal pain, nausea and/or vomiting 09/01 She has been feeling a lot better No shortness of breath at rest Still requiring oxygen at rest Repeat chest x-ray showed some improvement of pulmonary edema 09/02 She has been feeling a lot better without any symptoms at rest Saturation has been around 88% on room air Requiring 1-3 L of nasal cannula oxygen to maintain saturation Physical Exam Vital Signs (Past 24 Hours): Last Vital Signs Temp 36.6 C 09/02/18 07:21 Pulse 60 09/02/18 07:21 Resp 18 09/02/18 07:21 BP 123/70 09/02/18 07:21 Pulse Ox 97 09/02/18 07:21 Physical Exam: No apparent distress at rest Constitutional: WD/WN, vitals as above Eyes: PERRL, conjunctivae normal, anicteric sclerae ENMT: external ear and nose normal, oropharynx normal Neck: trachea midline, no thyromegaly Respiratory: normal respiratory effort Auscultation: + diminished lung sounds and + crackles (Occasional at the bases) Cardiovascular: Rate/Rhythm: regular rate and regular rhythm Heart Sounds: normal S1 and normal S2 Gastrointestinal (Abdomen): Inspection/Auscultation: abdomen normal to inspection and normal bowel sounds Percussion/Palpation: abdomen soft Skin: Chronic skin changes in the legs Neurologic: Alert and awake. Mobile with wheelchair, generally weak and lethargy Results & Data Laboratory Results [facility] 09/02/18 08:26 Sodium 139 Potassium 3.3 L Chloride 101 Carbon Dioxide 31 BUN 40 H Creatinine 1.60 H Glucose 142 H Calcium 8.9 Medications Administered Current Inpatient Medications Acetaminophen (Tylenol) 650 mg PO Q4H PRN PRN Reason: Pain or Fever Stop: 09/29/18 15:59 Al Hydrox/Mg Hydrox/Simethicone (Maalox) 15 ml PO Q4H PRN PRN Reason: Dyspepsia Stop: 09/29/18 15:59 Amiodarone HCl (Cordarone) 200 mg PO DAILY [facility]ILL[facility] Stop: 09/30/18 08:59 Last Admin: 09/02/18 09:14 Dose: 200 mg Documented by: Apixaban (Eliquis) 5 mg PO BID D[facility]ON Stop: 09/29/18 20:59 Last Admin: 09/02/18 09:16 Dose: 5 mg Documented by: Aspirin (Ecotrin Ectab) 81 mg PO DAILY [facility]ON Stop: 09/30/18 08:59 Last Admin: 09/02/18 09:14 Dose: 81 mg Documented by: Carvedilol (Coreg) 6.25 mg PO BID [facility] Stop: 09/29/18 20:59 Last Admin: 09/02/18 09:13 Dose: 6.25 mg Documented by: Dextrose (Dextrose 50%) 25 - 50 ml IV UD PRN; Protocol PRN Reason: Hypoglycemia Protocol Stop: 09/29/18 15:59 Digoxin (Lanoxin) 0.125 mg PO Q2D@1600 [facility] Stop: 09/29/18 15:59 Last Admin: 09/01/18 15:59 Dose: 0.125 mg Documented by: Ferrous Sulfate (Feosol) 325 mg PO BID [facility] Stop: 09/29/18 20:59 Last Admin: 09/02/18 09:15 Dose: 325 mg Documented by: Gabapentin (Neurontin) 100 mg PO TID [facility] Stop: 09/29/18 20:59 Last Admin: 09/02/18 09:19 Dose: 100 mg Documented by: Glucagon (Glucagen) 1 mg SQ UD PRN; Protocol PRN Reason: Hypoglycemia Protocol Stop: 09/29/18 15:59 Glucose (Glucose 40%) 15 - 30 gm PO UD PRN; Protocol PRN Reason: Hypoglycemia Protocol Stop: 09/29/18 15:59 Glucose (Dex4 Glucose) 4 - 8 tabs PO UD PRN; Protocol PRN Reason: Hypoglycemia Protocol Stop: 09/29/18 15:59 Piperacillin Sod/Tazobactam (Sod 3.375 gm/ Dextrose) 115 mls @ 28.75 mls/hr IV Q8H [facility]; Protocol Stop: 09/06/18 23:59 Last Admin: 09/02/18 03:26 Dose: 28.8 mls/hr Documented by: Furosemide 40 mg/ Syringe 4 mls @ 4 mls/min IV BID [facility] Stop: 09/29/18 20:59 Last Admin: 09/02/18 09:20 Dose: 4 mls/min Documented by: Doxycycline Hyclate 100 mg/ (Dextrose) 110 mls @ 55 mls/hr IV Q12H [facility] Stop: 09/08/18 09:59 Last Infusion: 09/01/18 23:46 Dose: Infused Documented by: Insulin Aspart (Novolog Flexpen) 0 units SC ACHS [facility] Stop: 09/29/18 16:29 Last Admin: 09/02/18 09:10 Dose: 7 units Documented by: Insulin Glargine (Lantus Solostar Pen) 0 - 30 units SC Q12H [facility]; Protocol Stop: 09/29/18 17:59 Last Admin: 09/02/18 06:24 Dose: 15 units Documented by: Isosorbide Mononitrate (Imdur Extended Rel) 30 mg PO QAM [facility] Stop: 09/30/18 08:59 Last Admin: 09/02/18 09:17 Dose: 30 mg Documented by: Levalbuterol HCl (Xopenex 0.63 Mg/3 Ml Neb) 0.63 mg NEB Q6R [facility] Stop: 09/29/18 19:59 Last Admin: 09/02/18 07:06 Dose: 0.63 mg Documented by: Levothyroxine Sodium (Synthroid) 75 mcg PO DAILYBB [facility] Stop: 09/30/18 06:29 Last Admin: 09/02/18 06:25 Dose: 75 mcg Documented by: Magnesium Hydroxide (Milk Of Magnesia) 30 ml PO Q12H PRN PRN Reason: Constipation Stop: 09/29/18 15:59 Miconazole Nitrate (Desenex) 1 appln EXT PRN PRN PRN Reason: Affected Skin Folds Stop: 09/29/18 16:38 Last Admin: 08/30/18 17:50 Dose: 1 appln Documented by: Miscellaneous (Carbohydrates For Hypoglycemia) 15 - 30 gm PO UD PRN PRN Reason: Hypoglycemia Treatment Stop: 09/29/18 15:59 Miscellaneous Information (Consult) 1 ea N/A UD PRN PRN Reason: Consult Stop: 09/29/18 10:37 Ondansetron HCl (Zofran) 4 mg IV Q6H PRN PRN Reason: Nausea Stop: 09/29/18 15:59 Polyethylene Glycol (Miralax Powder Packet) 17 gm PO DAILY PRN PRN Reason: Constipation Stop: 09/29/18 15:59 Potassium Chloride (Klor-Con M10) 10 meq PO DAILY [facility] Stop: 09/30/18 08:59 Last Admin: 09/02/18 09:18 Dose: 10 meq Documented by: Senna/Docusate Sodium (Senokot S) 1 tab PO BID [facility] Stop: 09/29/18 20:59 Last Admin: 09/02/18 09:19 Dose: 1 tab Documented by: Simvastatin (Zocor) 20 mg PO QPM [facility] Stop: 09/29/18 20:59 Last Admin: 09/01/18 21:17 Dose: 20 mg Documented by: Trazodone HCl (Desyrel) 50 mg PO HS [facility] Stop: 09/29/18 20:59 Last Admin: 09/01/18 21:17 Dose: 50 mg Documented by: Vitamin D (Vitamin D3) 2,000 units PO DAILY [facility] Stop: 09/30/18 08:59 Last Admin: 09/02/18 09:20 Dose: 2,000 units Documented by: (1) Respiratory failure with hypoxia Chronicity: unspecified Qualified Code(s): J96.91 - Respiratory failure, unspecified with hypoxia (2) Pneumonia Pneumonia type: due to unspecified organism Laterality: unspecified laterality Lung location: unspecified part of lung Qualified Code(s): J18.9 - Pneumonia, unspecified organism (3) CHF exacerbation Heart failure type: unspecified Qualified Code(s): I50.9 - Heart failure, unspecified (4) Coronary artery disease Coronary Disease-Associated Artery/Lesion type: [place] artery [place] vs. transplanted heart: [place] heart Associated angina: without angina Qualified Code(s): I25.10 - Atherosclerotic heart disease of [place] coronary artery without angina pectoris (5) HTN (hypertension) Hypertension type: essential hypertension Qualified Code(s): I10 - Essential (primary) hypertension (6) Atrial fibrillation Atrial fibrillation type: paroxysmal Qualified Code(s): I48.0 - Paroxysmal atrial fibrillation (7) DM type 2 (diabetes mellitus, type 2) Diabetes mellitus intermediate insulin use: with intermediate use Diabetes mellitus complication status: with circulatory complication Diabetes mellitus complication detail: with other circulatory complications Qualified Code(s): E11.59 - Type 2 diabetes mellitus with other circulatory complications; Z79.4 - 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
[2018-09-02] MEDS ORDERED: POTASSIUM CHLORIDE 20 MEQ TABCR PO STA (10:23)
[2018-09-02] MEDS: DOXYCYCLINE HYCLATE 100 MG in DEXTROSE 5% 100 ML IV SCH (11:46)
[2018-09-02] MEDS ORDERED: SULFA/TRIMETH 400/80MG TAB PO STA (13:34)
[2018-09-02] MEDS ORDERED: CIPROFLOXACIN 500 MG TAB PO SCH (21:00)
[2018-09-02] MEDS ORDERED: SULFA/TRIMETH 400/80MG TAB PO SCH (22:00)
--- NOTE | 2018-09-03 08:17 | Discharge Summary ---
Date of Service September 03, 2018 Admission HPI Per Admitting Provider This is a 72-year-old white female who has a significant past medical history of mild intellectual disability, IDDM T2, CAD, combined systolic and diastolic CHF, PAF anticoagulated on Eliquis, cardiac pacemaker in situ, HTN, HLD, PVD, history of osteomyelitis s/p amputation toe of right foot, depression, morbid obesity who presents to [facility] [address] ED secondary to SOB times 1 day. Patient is poor historian. When asked what brought her to ED she states, "I was having trouble breathing since yesterday." Further complains of abdominal discomfort and nausea yesterday but since resolved and weakness. She denies any recent illness, cough, sinus congestion, sore throat, post nasal drip, chest pain, orthopnea (although sleeps in lounge chair), PND, f/c/s, dizziness, lightheaded, emesis, diarrhea, change in bowel or urinary habits. Pt has chronic lower extremity venous insufficiency with chronic erythematous legs and wounds. She feels her lower extremity redness is the same, not worse. (wound pictures noted in patient chart confirms this.) Denies any change in weight or appetite. +Sick contacts where she resides. Admission Exam Per Admitting Provider Vital Signs (Past 24 Hours): Last Vital Signs Temp 37.6 C H 08/30/18 12:36 Pulse 66 08/30/18 14:15 Resp 15 08/30/18 14:15 BP 118/55 L 08/30/18 14:15 Pulse Ox 96 08/30/18 14:15 Physical Exam: Gen: Morbidly obese F, lying in bed, NAD on O2 via NC, answers questions appropriately, drowsy Head: Normocephalic, Atraumatic Eyes: Sclera normal, no conjunctival injection, PERRLA, EOMI ENT: Gross hearing intact, normal pharynx, mucous membranes moist Neck: supple, no adenopathy, No JVD, no bruit, Resp: Clear to auscultation b/l with decreased breath sounds bilaterally, no wheeze, rales, rhonchi. Normal insp/exp effort, no accessory muscle use on 3L O2 via NC CV: Regular rate, regular rhythm, no murmur, rub, gallop, or ectopy Abd: +truncal obesity, +BS x 4, soft, nontender, nondistended Musculoskeletal: moves extremities active rom x 4, strength 4/5 bilaterally, good software test specialist strength Extremities: B/L Edema with chronic venous insufficiency, erythema, mild warmth, 2 venous stasis ulcerations noted LLE calf region, erythematous wound bed, b/l pedal pulse +1 and equal, R 3rd toe amp Skin: warm, moist, no rash, negative turgor, cap refill < 2sec Neuro: Alert and oriented x 3, speech normal, good mood/affect, cran nerve 2-12 intact grossly : +yun cath draining clear yellow urine Principal Diagnosis Acute hypoxic respiratory failure secondary to pulmonary edema, diastolic dysfunction, chronic leg wound Discharge Exam Constitutional WD/WN, vitals as above Eyes PERRL, conjunctivae normal, anicteric sclerae ENMT external ear and nose normal, oropharynx normal Neck trachea midline, no thyromegaly Respiratory normal respiratory effort Auscultation: + diminished lung sounds and + crackles (Occasional at the bases) Cardiovascular Rate/Rhythm: regular rate and regular rhythm Heart Sounds: normal S1 and normal S2 Gastrointestinal (Abdomen) Inspection/Auscultation: abdomen normal to inspection and normal bowel sounds Percussion/Palpation: abdomen soft Discharge Data Allergies Allergy/AdvReac Type Severity Reaction Status Date / Time No Known Allergies Allergy Verified 08/30/18 11:10 Consultations 08/30/18 13:59 ED Decision to Admit Stat 08/30/18 16:00 Consult Case Management - Discharge Planning Routine 08/31/18 10:49 Consult Pulmonology Routine 09/02/18 13:01 Consult Case Management - Discharge Planning Routine Ordered Studies 08/30/18 12:20 CT chest wo con Stat Hospital Course (1) Respiratory failure with hypoxia: Secondary to pulmonary edema and may be complicated by pneumonitis/pneumonia CXR/CT Scan concerning for mild pulmonary edema vs atypical PNA BNP elevated 2094 Has been on Lasix 40 mg IV twice daily Oxygen and nebulized bronchodilators as needed Has been getting better Discussed with pulmonary and will continue current dose of diuretics Chest x-ray tomorrow to evaluate pulmonary edema We will get pulmonary evaluation if not improved Repeat chest x-ray did show some improvement of pulmonary edema Clinically she has been feeling a lot better We will continue with intravenous Lasix for now Likely to be discharged tomorrow Requiring 3 L of nasal cannula oxygen to maintain saturation Clinically stable and denies any symptoms Wants to be discharged today (2) Pneumonia: -CT scan suggestive of bilateral basal groundglass opacity consistent with infection and/or pulmonary edema -continue broad spectrum antibiotic with vanco/zosyn -MRSA nasal swab ordered, if negative can D/C Vanco -pulmonary toilet with xopenex, incentive spirometry -Continue current antibiotic -Will give doxycycline orally on discharge -Denies any cough and no shortness of breath at rest (3) Mediastinal lymphadenopathy: -Likely secondary to pneumonitis/could be viral -treatment as above, will need appropriate follow up to determine resolution -Likely secondary to reactive (4) CHF exacerbation: -CT scan and chest x-ray are suggestive of pulmonary edema -daily weights, strict I and O -monitor for diuresis -continue lasix, BB, imdur -Continue intravenous Lasix for now -We will continue with her oral torsemide on discharge (5) Coronary artery disease: -no current CP, troponin wnl -continue ASA, imdur, statin,BB -No acute cardiac symptoms (6) HTN (hypertension): -blood pressure stable, continue BB, Lasix (7) Atrial fibrillation: -rate and rhythm controlled on amiodarone, digoxin, coreg -apixaban for anticoagulation -Rate is controlled (8) DM type 2 (diabetes mellitus, type 2): -A1C 6.6 03/10/18, repeat in a.m. -hold outpatient 70/[address] on lantus/novolog per protocol (9) CKD (chronic kidney disease), stage IV: -baaseline Cr 1.9-2.1 -bun/cr 58 and 1.8 today -monitor bmp, avoid nephrotoxins -Monitor PRP-remained stable -Kidney function remains stable with creatinine 1.6 on 09/02 -Will give potassium supplement (10) Chronic venous insufficiency: -with current venous stasis ulcerations x 2 LLE -consult wound care -b/l lower extremities are erythematous, slightly warm; however, compared to images from prior wound care visits it appears similar. WBC is WNL, but mildly febrile -concern for cellulitis in differential (11) Venous stasis ulcer: -as above (12) Anemia: -H/H stable at 11.0 and 36.2 -follow cbc -Hemoglobin 10.6 on 09/01 (13) DVT prophylaxis: -continue apixaban, avoid mechanical prophylaxis given venous insufficiency Disposition: to be determined, case management consulted Likely discharge today Total Time Total Time Spent Total Time Spent (In Minutes): 35 minutes Total Time Includes: Examination of the Patient, Discharge Planning and Medication Reconciliation Discharge Plan Discharge Items Patient Disposition: Transfer Half-Way Fac Reason For Visit: ACUTE HYPOXIC RESPIRATORY FAILURE Discharge Diagnosis: Acute hypoxic respiratory failure secondary to pulmonary edema, diastolic dysfunction, chronic leg wound Condition: Fair Discharge Goals: Decrease discomfort, Improve function and Increase independence Activity: Resume your previous activity Non-emergency contact: Primary Care Provider Call non-emergency contact if: you have any medication questions and your symptoms worsen Follow-up/Referrals: Lola Jean MD [Primary Care Provider] - (Followed up by medical home services) Diet: Carb Consistent or DM2, Heart Healthy and Low Sodium (2gm) Fluids: 1800ml (7 cups) Addtl Provider Instructions: Please take precaution to avoid fall. Wound care and dressing as per instruction. Will need to 3 L of oxygen via nasal cannula to keep oxygen saturation above 90% Prescriptions: New sulfamethoxazole-trimethoprim 400-80 mg Tablet 1 tab PO Q12H 7 Days Qty: 14 RF: 0 Continued amiodarone 200 mg tablet 200 mg PO DAILY RF: 0 apixaban [Eliquis] 5 mg tablet 5 mg PO BID RF: 0 aspirin 81 mg tablet,chewable 81 mg PO DAILY RF: 0 carvedilol [Coreg] 6.25 mg tablet 6.25 mg PO BID RF: 0 cholecalciferol (vitamin D3) 2,000 unit capsule 2,000 units PO DAILY RF: 0 digoxin 125 mcg tablet 0.125 mg PO Q2D RF: 0 ferrous sulfate 325 mg (65 mg iron) tablet,delayed release (DR/EC) 325 mg PO BID RF: 0 furosemide 40 mg tablet 40 mg PO QAM RF: 0 gabapentin [Neurontin] 100 mg capsule 100 mg PO TID RF: 0 insulin asp prt-insulin aspart [Novolog Mix 70-30 U-100 Insuln] 100 unit/mL (70-30) solution 80 units SQ QAM RF: 0 insulin asp prt-insulin aspart [Novolog Mix 70-30 U-100 Insuln] 100 unit/mL (70-30) solution 58 units SQ QPM RF: 0 insulin aspart U-100 [Novolog Flexpen U-100 Insulin] 100 unit/mL insulin pen 6 units SQ QDL RF: 0 isosorbide mononitrate 30 mg tablet extended release 24 hr 30 mg PO QAM RF: 0 sennosides-docusate sodium 8.6-50 mg tablet 1 tab PO BID RF: 0 simvastatin [Zocor] 20 mg tablet 20 mg PO QPM RF: 0 furosemide 40 mg Tablet 20 mg PO DAILY RF: 0 trazodone 50 mg Tablet 50 mg PO HS RF: 0 potassium chloride 10 mEq Tablet Extended Release 10 meq PO DAILY RF: 0 levothyroxine 75 mcg Tablet 75 mcg PO QAM RF: 0 Stand-Alone Forms: [facility] Discharge Orders: Discharge Order (Routine); Ordered 09/02/18 Ordered By: Rachael Munoz Skilled Items Patient informed of condition?: Yes DNR: No Discharge Level of Care: Skilled Communicable Disease: No Discharge Prognosis: Stable Admission Data Admit Date/Time: 08/30/18 14:57 Attending Provider: Rachael Munoz Admit Provider: Harry Fitch Primary Care Provider: Lola Jean Other Providers: Harry Fitch ; [place] Service: Telemetry Other Interventions: Discharge Summary Assessment (RN) Last Done: 09/02/18 16:29 DC Date/Time DO NOT enter until pt leaves facility: 09/02/18 16:51
--- NOTE | 2018-09-03 11:49 | Pulmonary Consultation ---
Date of Consultation September 26, 2018 History of Present Illness Attending Physician: Rachael Munoz MD Allergies Allergy/AdvReac Type Severity Reaction Status Date / Time No Known Allergies Allergy Verified 09/06/18 10:56 Home Medications Home Medications Medication Instructions Recorded Confirmed Type amiodarone 200 mg tablet 200 mg PO DAILY 02/22/18 08/30/18 History apixaban 5 mg tablet 5 mg PO BID 02/22/18 08/30/18 History aspirin 81 mg chewable tablet 81 mg PO DAILY 02/22/18 08/30/18 History carvedilol 6.25 mg tablet 6.25 mg PO BID 02/22/18 08/30/18 History cholecalciferol (vitamin D3) 2,000 2,000 units PO DAILY 02/22/18 08/30/18 History unit capsule digoxin 125 mcg tablet 0.125 mg PO Q2D 02/22/18 08/30/18 History ferrous sulfate 325 mg (65 mg 325 mg PO BID tab 02/22/18 08/30/18 History iron) tablet,delayed release furosemide 40 mg tablet 40 mg PO QAM 02/22/18 08/30/18 History gabapentin 100 mg capsule 100 mg PO TID cap 02/22/18 08/30/18 History insulin aspar prt-insulin aspart 58 units SQ QPM ml 02/22/18 08/30/18 History 100 unit/mL (70-30) subcutaneous soln insulin aspar prt-insulin aspart 80 units SQ QAM ml 02/22/18 08/30/18 History 100 unit/mL (70-30) subcutaneous soln insulin aspart (U-100) 100 unit/mL 6 units SQ QDL ml 02/22/18 08/30/18 History (3 mL) subcutaneous pen isosorbide mononitrate ER 30 mg 30 mg PO QAM 02/22/18 08/30/18 History tablet,extended release 24 hr sennosides 8.6 mg-docusate sodium 1 tab PO BID 02/22/18 08/30/18 History 50 mg tablet simvastatin 20 mg tablet 20 mg PO QPM 02/22/18 08/30/18 History furosemide 20 mg PO DAILY 08/30/18 08/30/18 History levothyroxine 75 mcg PO QAM 08/30/18 08/30/18 History potassium chloride 10 meq PO DAILY 08/30/18 08/30/18 History trazodone 50 mg PO HS 08/30/18 08/30/18 History Patient History Medical History Mild intellectual disability (Chronic) Chronic venous insufficiency (Chronic) DM type 2 (diabetes mellitus, type 2) (Chronic) Atrial fibrillation (Chronic) CKD (chronic kidney disease), stage III (Chronic) HTN (hypertension) (Chronic) Coronary artery disease (Chronic) Pacemaker (Chronic) History of uterine cancer (Chronic) "s/p XRT" History of osteomyelitis (Chronic) "R third toe" Anemia (Chronic) CHF (congestive heart failure) (Chronic) A-fib (Chronic) Anemia (Chronic) CHF (congestive heart failure) (Chronic) Diabetes 1.5, managed as type 2 (Chronic) Diabetic neuropathy (Chronic) Hyperlipidemia (Chronic) Uterine cancer (Resolved) Surgical History History of lumpectomy of left breast (Resolved) History of amputation of lesser toe of right foot (Chronic) History of total bilateral knee replacement (Chronic) S/P cholecystectomy (Chronic) Status post placement of cardiac pacemaker (Chronic) S/P cardiac pacemaker procedure (Resolved) S/P cholecystectomy (Resolved) Status post bilateral knee replacements (Resolved) Family History Mother Pneumonia Social History Preferred Language: Pashto Beliefs That Will Affect Care: None marital status: Unknown Current Living Situation: Detention and Other Current Living Situation Comment: Resides at House of Care Feels Safe at Home: Yes Smoking Status: Never smoker Hx Alcohol Use: No Hx Substance Use: No Physical Exam Vital Signs (Past 24 Hours): Last Vital Signs Temp 36.8 C 09/02/18 16:29 Pulse 60 09/02/18 16:29 Resp 18 09/02/18 16:29 BP 114/58 L 09/02/18 16:29 Pulse Ox 94 09/02/18 16:29
== END 2018-09-02 16:51 | disposition home or self-care (01) | DRG 193 ==
LOC: ED 10:28 → 2W 14:57

== ENCOUNTER 2019-01-25 14:49 | Inpatient (IN) ==
--- NOTE | 2019-01-25 15:28 | Emergency Department Note ---
ED Visit Note I contributed to the care of this patient under the supervision of . Resident Activity Tracking Resident Involvement: Resident Care Provided Care Provided: [facility]
[2019-01-25 15:53] LABS: Basophils # (auto) 0.02 K/uL (0-0.2); Basophils % (auto) 0.2 %; Eosinophils # (auto) 0.16 K/uL (0-0.5); Hematocrit (blood only) 34.3 % (37-47); Hemoglobin 10.3 g/dL (12.0-16.0); Immature Granulocytes # (auto) 0.03 K/uL (0.00-0.02); Immature Granulocytes % (auto) 0.4 %; Lymphocytes # (auto) 0.48 K/uL (1.2-3.4); Lymphocytes % (auto) 5.9 %; Mean Corpuscular Volume 95.8 fL (80-100); Mean Platelet Volume 8.3 fL (7.4-10.4); Monocytes # (auto) 0.73 K/uL (0.11-0.59); Neutrophils # (auto) 6.68 K/uL (1.4-6.5); Neutrophils % (auto) 82.5 %; Platelet Count 156 K/uL (130-400); RDW Coefficient of Variation 20.3 % (11.5-14.5); RDW Standard Deviation 70.8 fL (36.4-46.3); Red Blood Count 3.58 M/uL (4.2-5.4)
[2019-01-25 16:14] LABS: BUN Creatinine Ratio 27.8 (10-20); Blood Urea Nitrogen 64 mg/dl (7-18); Calcium 9.2 mg/dl (8.5-10.1); Carbon Dioxide 28 mmol/L (21-32); Chloride 107 mmol/L (98-107); Est GFR (African American) 23.3; Est GFR (Non-African American) 20.1; Glucose 154 mg/dl (70-99); Potassium 4.3 mmol/L (3.5-5.1); Sodium 140 mmol/L (136-145)
[2019-01-25 16:17] LABS: Anisocytosis Present
[2019-01-25] MEDS ORDERED: SODIUM CHLORIDE 0.9% 250 ML IV ONE (16:20)
--- NOTE | 2019-01-25 16:26 | XRay Report ---
LEFT HAND 3 VIEWS CLINICAL HISTORY: Third finger swelling. FINDINGS: 3 views of the left hand are obtained. No prior studies are available for comparison at the time of dictation. The skeletal structures are osteopenic. No acute fracture is seen. There is no nicole ny erosion or periostitis. Moderate to advanced osteoarthritic change is present at the first carpome tacarpal joint where there is bony sclerosis, overgrowth, and mild subluxation. There is mild degener ative narrowing at the radiocarpal articulation. Mild osteoarthritic change is seen at the first meta carpophalangeal joint and involving the interphalangeal joints, distal greater than proximal. Mild so ft tissue swelling is noted in the fingers, greatest in the third finger. There is atherosclerotic ca lcification of the regional arteries. IMPRESSION: 1. No acute bony abnormality is identified. 2. Osteopenia and degenerative change as above. 3. Mild soft tissue swelling is suggested in the fingers, greatest in the third digit. Electronically signed by: Tae Bradshaw M.D. 01/25/2019 4:24 PM
[2019-01-25] MEDS ORDERED: cefTRIAXone SODIUM 1,000 MG/50 ML BAG IV STA (16:55)
--- NOTE | 2019-01-25 18:16 | History & Physical Report ---
Date of Service January 25, 2019 Assessment & Plan (1) Bilateral lower leg cellulitis: (2) Venous stasis dermatitis of both lower extremities: This is a 72-year-old white female who has a significant past medical history of mild intellectual disability, IDDM T2, CAD, combined systolic and diastolic CHF, PAF anticoagulated on Eliquis, cardiac pacemaker in situ, HTN, HLD, PVD, history of osteomyelitis s/p amputation toe of right foot, depression, morbid obesity who presents to [facility] ED secondary to referral by infectious disease physician Dr. Dodge due to worsening bilateral lower extremity cellulitis and left hand cellulitis. Pt seen by Dr. Dodge today in clinic, per clinic note: Patient with poorly responding cellulitis of lower extremity and possible left hand infection. Recommended ER for admission and IV antibiotics. Was last seen by Dr. Dodge on 01/11 LLE cellulitis with cultures positive for S. aureus, Enterococcus, and Enterobacter. Tx with Bactrim DS 1 bid with amoxicillin 500 mg tid In ED patient remained hemodynamically stable There is no signs or symptoms of SIRS or sepsis She was afebrile and WBC was WNL She does have a slight AK I with elevation BUN/creatinine at 64 and 2.30, likely secondary to Bactrim Admit to Med/Surg telemetry Consult infectious disease Dr. Valdovinos Initiate patient on broad-spectrum IV antibiotics with daptomycin and Zosyn Check CK level and will hold statin while on dapto repeat cbc, bmp in a.m. blood cultures pending wound care nurse consult placed hold lasix given JASON- re eval in am. (3) Swelling of joint of left hand: L dorsum of hand MTP region 24 with edema, erythema. Good active and passive range of motion. No pain to palpation. Possible cellulitis versus arthropathy versus trauma X-ray negative for fracture Patient on broad-spectrum IV antibiotics Monitor progression Ice as needed (4) CKD (chronic kidney disease), stage IV: Patient with acute on chronic CKD stage IV Baseline creatinine 1.61.8 BUN/creatinine 64 and 2.30 today Possibly in setting of Bactrim use x1 month Hold nephrotoxic agents including Lasix She did receive IVF while in ED Repeat BMP in a.m. (5) Coronary artery disease: Patient denies chest pain or shortness of breath Continue ASA, Coreg, Imdur Hold statin secondary to initiating daptomycin (6) CHF (congestive heart failure): Patient appears euvolemic on exam, weight stable at 104.3 kg Patient does have chronic lower extremity venous stasis ulceration and edema Continue Coreg, Imdur, digoxin Holding Lasix and KCl for now given elevation in renal function Repeat BMP in a.m. and resume when appropriate Daily weights Strict I's and O's Heart healthy low-sodium diet last echo 08/2018 revealed EF 55 to 6% with grade 2 diastolic (7) Atrial fibrillation: Rate and rhythm controlled on amiodarone, digoxin, Coreg Anticoagulated with Eliquis (8) HTN (hypertension): Blood pressure controlled on carvedilol, Imdur, Lasix Holding Lasix and KCl until BMP reevaluate in a.m. (9) DM type 2 (diabetes mellitus, type 2): A1C 08/31/18 6.7 mostly well controlled Pt on high dose 70/30 insulin consult glycemic pharmacist for assistance given concurrent antibiotic and presumed infection appreciate their assistance repeat a1c in a.m. (10) Anemia: H/H stable at 10.3 and 34.3 no signs or symptoms of bleeding Monitor CBC (11) Mild intellectual disability: Patient pleasant but tearful, mood stable Monitor (12) DVT prophylaxis: Continue Eliquis Disposition: To be determined Follow-up: PCP Dr. Lola Jean upon discharge Patient was seen and examined in collaboration with Dr. Vallecillo, please see addendum History of Present Illness Chief Complaint: Referred by infectious disease physician Dr. Dodge for worsening bilateral lower extremity cellulitis and left hand cellulitis. Primary Care Provider: Lola Jean MD This is a 72-year-old white female who has a significant past medical history of mild intellectual disability, IDDM T2, CAD, combined systolic and diastolic CHF, PAF anticoagulated on Eliquis, cardiac pacemaker in situ, HTN, HLD, PVD, history of osteomyelitis s/p amputation toe of right foot, depression, morbid obesity who presents to [facility] ED secondary to referral by infectious disease physician Dr. Dodge due to worsening bilateral lower extremity cellulitis and left hand cellulitis. Caregiver from assisted is at bedside. Patient was seen in wound clinic today and was noted to have increased erythema, warmth and drainage from chronic bilateral venous stasis ulcerations of her lower extremities. It was also noted that overnight she developed swelling and redness to the dorsal aspect of her left hand around MCP fingers 2-4. Patient is very upset and tearful and does not want to be hospitalized in fear that she will be here for, "a couple weeks." She elicits that her left hand became swollen and red last evening whenever she was watching TV and was worse this morning. She complains of pain /10. She has full range of motion of her left hand. Denies this happening in the past. Caregiver at bedside noted that she does occasionally get swelling to her fingers and hands do not resolve on own and not any treatment. Denies trauma. Patient denies any fever, chills, sweats, lightheadedness, dizziness, chest pain, shortness breath, palpitations, nausea, vomiting, diarrhea, change in her bowel or urinary habits. She states "I feel fine." Her appetite has been normal. She feels her legs are not more swollen than usual and denies any weight gain. Of significance patient has been recently treated with 4-week course of amoxicillin and Bactrim per Dr. Dodge. On 12/08 left lower extremity wound culture grew coag negative staph, regular 21 culture grew staph aureus, Enterobacter cloacae, enterococcus faecalis. Allergies Allergy/AdvReac Type Severity Reaction Status Date / Time No Known Allergies Allergy Verified 01/25/19 15:46 Home Medications Home Medications Medication Instructions Recorded Confirmed Type amiodarone 200 mg tablet 200 mg PO QAM 02/22/18 01/25/19 History apixaban 5 mg tablet 5 mg PO BID 02/22/18 01/25/19 History aspirin 81 mg chewable tablet 81 mg PO QAM 02/22/18 01/25/19 History carvedilol 6.25 mg tablet 6.25 mg PO BID 02/22/18 01/25/19 History cholecalciferol (vitamin D3) 2,000 2,000 units PO QAM 02/22/18 01/25/19 History unit capsule digoxin 125 mcg tablet 0.125 mg PO Q2D 02/22/18 01/25/19 History ferrous sulfate 325 mg (65 mg 325 mg PO BIDM tab 02/22/18 01/25/19 History iron) tablet,delayed release furosemide 40 mg tablet 40 mg PO QAM 02/22/18 01/25/19 History gabapentin 100 mg capsule 100 mg PO TID cap 02/22/18 01/25/19 History insulin aspar prt-insulin aspart 56 units SQ QDD ml 02/22/18 01/25/19 History 100 unit/mL (70-30) subcutaneous soln insulin aspar prt-insulin aspart 65 units SQ QDB ml 02/22/18 01/25/19 History 100 unit/mL (70-30) subcutaneous soln insulin aspart (U-100) 100 unit/mL 4 units SQ QDL ml 02/22/18 01/25/19 History (3 mL) subcutaneous pen isosorbide mononitrate ER 30 mg 30 mg PO QAM 02/22/18 01/25/19 History tablet,extended release 24 hr sennosides 8.6 mg-docusate sodium 1 tab PO BID 02/22/18 01/25/19 History 50 mg tablet simvastatin 20 mg tablet 20 mg PO QPM 02/22/18 01/25/19 History furosemide 20 mg PO .DAILY AT 1500 08/30/18 01/25/19 History levothyroxine 75 mcg PO DAILYBB 08/30/18 01/25/19 History potassium chloride 10 meq PO QAM 08/30/18 01/25/19 History trazodone 50 mg PO HS 08/30/18 01/25/19 History amoxicillin 500 mg capsule 500 mg PO TID #90 cap 12/20/18 01/25/19 Rx acetaminophen [Tylenol Extra 1,000 mg PO Q6H PRN MDD 3 GRAMS/24 01/25/19 01/25/19 History Strength] HOURS. acetaminophen [Tylenol] 650 mg PO Q4 PRN MDD 3 GRAMS/24 01/25/19 01/25/19 History HOURS magnesium hydroxide [Milk of 30 ml PO DAILY PRN 01/25/19 01/25/19 History Magnesia] miconazole nitrate [Zeasorb AF] 1 applic TOPICAL DIRECTED 01/25/19 01/25/19 History polyethylene glycol 3350 [Miralax] 17 g PO DAILY PRN 01/25/19 01/25/19 History Past Med/Surg History Medical History Mild intellectual disability (Chronic) Chronic venous insufficiency (Chronic) DM type 2 (diabetes mellitus, type 2) (Chronic) Atrial fibrillation (Chronic) HTN (hypertension) (Chronic) Coronary artery disease (Chronic) Pacemaker (Chronic) History of uterine cancer (Chronic) "s/p XRT" History of osteomyelitis (Chronic) "R third toe" Anemia (Chronic) CHF (congestive heart failure) (Chronic) Acquired claw toe of left foot (Acute) Acquired claw toe of right foot (Acute) Acquired hallux valgus of right foot (Acute) Diabetes mellitus with diabetic polyneuropathy (Acute) Hallux valgus (acquired), left foot (Acute) Type 2 diabetes mellitus with diabetic peripheral angiopathy without gangrene (Acute) A-fib (Chronic) Anemia (Chronic) CHF (congestive heart failure) (Chronic) Diabetes 1.5, managed as type 2 (Chronic) Diabetic neuropathy (Chronic) Hyperlipidemia (Chronic) Uterine cancer (Resolved) Surgical History History of lumpectomy of left breast (Resolved) History of amputation of lesser toe of right foot (Chronic) History of total bilateral knee replacement (Chronic) S/P cholecystectomy (Chronic) Status post placement of cardiac pacemaker (Chronic) History of amputation of lesser toe of right foot (Acute) S/P cardiac pacemaker procedure (Resolved) S/P cholecystectomy (Resolved) Status post bilateral knee replacements (Resolved) Family History Mother Pneumonia Social History Preferred Language: Burmese Communication Ability: Effective Visual Impairment: No Limitations 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: Normal Obgyn Specialist Required: No Beliefs That Will Affect Care: None marital status: Unknown Current Living Situation: Other Current Living Situation Comment: long-term - House of Care Feels Safe at Home: Yes Smoking Status: Never smoker Do You Dip or Chew Tobacco: No Second Hand Exposure: No Hx Alcohol Use: No Hx Substance Use: No Review of Systems Review of Systems: As noted per HPI, 10 systems reviewed and negative unless noted above. Physical Exam Physical Exam: Gen: Morbidly obese F,sitting up in bed, NAD, tearful, answers questions appropriately, drowsy Head: Normocephalic, Atraumatic Eyes: Sclera normal, no conjunctival injection, PERRLA, EOMI ENT: Gross hearing intact, normal pharynx, mucous membranes dry, dentition absent Neck: supple, no adenopathy, No JVD, no bruit, Resp: Clear to auscultation b/l with decreased breath sounds bilaterally but decreased at bases, no wheeze, rales, rhonchi. 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 Left hand dorsum MTP 24 erythema, edema but with good active and passive range of motion. Skin: warm, moist, no rash, negative turgor, cap refill < 2sec Neuro: Alert and oriented x 3, speech normal, tearful mood/affect, cran nerve 2- 12 intact grossly Results & Data Vital Signs (Past 12 Hours) Vital Signs Temp Pulse Pulse Resp BP BP Pulse Ox 01/25/19 16:46 60 20 115/55 L 92 01/25/19 14:53 36.3 C L 64 16 106/59 L 96 Laboratory Results Short CBC 01/25/19 01/25/19 Range/Units 15:44 15:44 WBC 8.10 (4.8-10.8) K/uL Hgb 10.3 L (12.0-16.0) g/dL Hct 34.3 L (37-47) % Plt Count 156 (130-400) K/uL Creatinine 2.30 H (0.6-1.2) mg/dl BMP 01/25/19 15:44 Sodium 140 Potassium 4.3 Chloride 107 Carbon Dioxide 28 BUN 64 H Creatinine 2.30 H Glucose 154 H Calcium 9.2 Diagnostic Findings Hand Xray: IMPRESSION: 1. No acute bony abnormality is identified. 2. Osteopenia and degenerative change as above. 3. Mild soft tissue swelling is suggested in the fingers, greatest in the third digit. Medications Administered Discontinued Medications Sodium Chloride (Nss) 250 mls @ 999 mls/hr IV .Q16M ONE Stop: 01/25/19 16:35 Last Infusion: 01/25/19 16:44 Dose: 0 mls/hr Documented by: [id number] Admin: 01/25/19 16:26 Dose: 999 mls/hr Documented by: [id number] Ceftriaxone Sodium (Rocephin) 1,000 mg in 50 mls @ 100 mls/hr IV NOW STA Stop: 01/25/19 17:24 Last Infusion: 01/25/19 17:29 Dose: 0 mls/hr Documented by: [id number] Admin: 01/25/19 16:59 Dose: 100 mls/hr Documented by: [id number] Code Status & VTE Plan Code Status Full Code VTE Prophylaxis Plan VTE Prophylaxis will be ordered: Yes Supervising Physician Co-Signing Physician Notes I have seen and examined the patient and have discussed the case with the provider above. I agree with the assessment and plan as stated with the following exceptions. Ms. Gudino is tearful on exam today, sad because she doesn't want to be in the hospital. She denies fevers or chills recently, but reports worsening LE cellulitis on both legs, worse on the left leg. She denies any pain in her legs but does have some in her left hand, where there is some acute swellnig over the MCP joints on the dorsal aspect of the hand. She has limited ability to extend the fingers. She denies a h/o gout, and no morning stiffness or other joint issues now or in the past. There is no open wound and no erythema. There is TTP of this area. Physical exam is otherwise remarkable for LLE cellulitis, however, wounds were not visualized by me as her wounds had recently been dressed with extensive dressings just prior to my arrival. Legs are NVI. Normal heart and lung exam. Plan as above to give broad spectrum antibiotics IV and await further ID plan. DO Avel (1) DM type 2 (diabetes mellitus, type 2) Diabetes mellitus complication detail: with other circulatory complications Diabetes mellitus complication status: with circulatory complication Diabetes mellitus bed bug exterminator insulin use: with bed bug exterminator use Qualified Code(s): E11.59 - Type 2 diabetes mellitus with other circulatory complications; Z79.4 - watermelon inspector (current) use of insulin (2) Coronary artery disease Associated angina: without angina Coronary Disease-Associated Artery/Lesion type: [place] artery [place] vs. transplanted heart: [place] heart Qualified Code(s): I25.10 - Atherosclerotic heart disease of [place] coronary artery without angina pectoris (3) Anemia Anemia type: due to chronic kidney disease Chronic kidney disease stage: stage 4 (severe) Qualified Code(s): N18.4 - Chronic kidney disease, stage 4 (severe); D63.1 - Anemia in chronic kidney disease (4) Atrial fibrillation Atrial fibrillation type: paroxysmal Qualified Code(s): I48.0 - Paroxysmal atrial fibrillation (5) HTN (hypertension) Hypertension type: essential hypertension Qualified Code(s): I10 - Essential (primary) hypertension
--- NOTE | 2019-01-25 18:52 | Emergency Department Note ---
Entered by Makenna Bowen acting as a scribe for History of Present Illness General Chief complaint: Swelling/Edema to Extremity Stated complaint: REF BY WOUND CARE - SWELLING TO L HAND Time Seen by Provider: 01/25/19 14:53 Source: patient History of Present Illness Onset (ago): day(s) (yesterday) Location: upper extremity (left 3rd digit) Pain Consistency: + constant Maximum Pain Intensity: 3 Current Pain Intensity: 3 Quality: + burning Relieved By: + cold therapy Associated symptoms: + other (+swollen left 3rd digit; +warm left 3rd digit; - pain up tendon; -cuts; -trauma; -gout); no fever/chills The patient is a 73 year old female who presents to the Emergency Room with complaints of constant left third digit pain that began yesterday. The patient notes her 3rd finger on her left hand has become swollen and red, and the patient rates the finger pain as 3/10. The patient describes the pain as burning. The patient states she was referred to the PCP in concern of cellulitis and repeat infections. The patient states ice makes the pain better. The patient denies pain up tendon, cuts, trauma, fever, or gout. The patient denies smoking, alcohol, or drug use. Home Medications Home Medications Medication Instructions Recorded Confirmed Type amiodarone 200 mg tablet 200 mg PO QAM 02/22/18 01/25/19 History apixaban 5 mg tablet 5 mg PO BID 02/22/18 01/25/19 History aspirin 81 mg chewable tablet 81 mg PO QAM 02/22/18 01/25/19 History carvedilol 6.25 mg tablet 6.25 mg PO BID 02/22/18 01/25/19 History cholecalciferol (vitamin D3) 2,000 2,000 units PO QAM 02/22/18 01/25/19 History unit capsule digoxin 125 mcg tablet 0.125 mg PO Q2D 02/22/18 01/25/19 History ferrous sulfate 325 mg (65 mg 325 mg PO BIDM tab 02/22/18 01/25/19 History iron) tablet,delayed release furosemide 40 mg tablet 40 mg PO QAM 02/22/18 01/25/19 History gabapentin 100 mg capsule 100 mg PO TID cap 02/22/18 01/25/19 History insulin aspar prt-insulin aspart 56 units SQ QDD ml 02/22/18 01/25/19 History 100 unit/mL (70-30) subcutaneous soln insulin aspar prt-insulin aspart 65 units SQ QDB ml 02/22/18 01/25/19 History 100 unit/mL (70-30) subcutaneous soln insulin aspart (U-100) 100 unit/mL 4 units SQ QDL ml 02/22/18 01/25/19 History (3 mL) subcutaneous pen isosorbide mononitrate ER 30 mg 30 mg PO QAM 02/22/18 01/25/19 History tablet,extended release 24 hr sennosides 8.6 mg-docusate sodium 1 tab PO BID 02/22/18 01/25/19 History 50 mg tablet simvastatin 20 mg tablet 20 mg PO QPM 02/22/18 01/25/19 History furosemide 20 mg PO .DAILY AT 1500 08/30/18 01/25/19 History levothyroxine 75 mcg PO DAILYBB 08/30/18 01/25/19 History potassium chloride 10 meq PO QAM 08/30/18 01/25/19 History trazodone 50 mg PO HS 08/30/18 01/25/19 History amoxicillin 500 mg capsule 500 mg PO TID #90 cap 12/20/18 01/25/19 Rx acetaminophen [Tylenol Extra 1,000 mg PO Q6H PRN MDD 3 GRAMS/24 01/25/19 01/25/19 History Strength] HOURS. acetaminophen [Tylenol] 650 mg PO Q4 PRN MDD 3 GRAMS/24 01/25/19 01/25/19 History HOURS magnesium hydroxide [Milk of 30 ml PO DAILY PRN 01/25/19 01/25/19 History Magnesia] miconazole nitrate [Zeasorb AF] 1 applic TOPICAL DIRECTED 01/25/19 01/25/19 History polyethylene glycol 3350 [Miralax] 17 g PO DAILY PRN 01/25/19 01/25/19 History Allergies Allergy/AdvReac Type Severity Reaction Status Date / Time No Known Allergies Allergy Verified 01/25/19 15:46 Past Med/Surg History Medical History Mild intellectual disability (Chronic) Chronic venous insufficiency (Chronic) DM type 2 (diabetes mellitus, type 2) (Chronic) Atrial fibrillation (Chronic) HTN (hypertension) (Chronic) Coronary artery disease (Chronic) Pacemaker (Chronic) History of uterine cancer (Chronic) "s/p XRT" History of osteomyelitis (Chronic) "R third toe" Anemia (Chronic) CHF (congestive heart failure) (Chronic) Acquired claw toe of left foot (Acute) Acquired claw toe of right foot (Acute) Acquired hallux valgus of right foot (Acute) Diabetes mellitus with diabetic polyneuropathy (Acute) Hallux valgus (acquired), left foot (Acute) Type 2 diabetes mellitus with diabetic peripheral angiopathy without gangrene (Acute) A-fib (Chronic) Anemia (Chronic) CHF (congestive heart failure) (Chronic) Diabetes 1.5, managed as type 2 (Chronic) Diabetic neuropathy (Chronic) Hyperlipidemia (Chronic) Uterine cancer (Resolved) Surgical History History of lumpectomy of left breast (Resolved) History of amputation of lesser toe of right foot (Chronic) History of total bilateral knee replacement (Chronic) S/P cholecystectomy (Chronic) Status post placement of cardiac pacemaker (Chronic) History of amputation of lesser toe of right foot (Acute) S/P cardiac pacemaker procedure (Resolved) S/P cholecystectomy (Resolved) Status post bilateral knee replacements (Resolved) Family History Mother Pneumonia Social History Preferred Language: Vincentian Communication Ability: Effective Visual Impairment: No Limitations 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: Normal Inspector Weights And Measures Required: No Beliefs That Will Affect Care: None marital status: Unknown Current Living Situation: Other Current Living Situation Comment: [facility] Feels Safe at Home: Yes Smoking Status: Never smoker Do You Dip or Chew Tobacco: No Second Hand Exposure: No Hx Alcohol Use: No Hx Substance Use: No Review of Systems See HPI for pertinent positives & negatives. and A total of 10 systems reviewed and were otherwise negative Physical Exam Vital Signs Vital Signs - 24 hr 01/25/19 14:53 01/25/19 16:46 Temperature 36.3 C L Temperature Source Oral Sepsis Recent Fever Within 48 Hours No Sepsis Action Taken by Nursing No Action Required Pulse Rate 64 Pulse Rate [Radial] 60 Pulse Rhythm [Radial] Regular Respiratory Rate 16 20 Respiratory Effort / Characteristics Non-Labored Respiratory Depth Normal Respiratory Pattern Regular Blood Pressure 106/59 L Blood Pressure [Right Arm] 115/55 L Blood Pressure Mean 74 Blood Pressure Mean [Right Arm] 75 Blood Pressure Position Sitting Pulse Oximetry 96 92 Oxygen Delivery Method Room Air GENERAL: Awake, alert, well-appearing, in no distress HENT: Normocephalic, atraumatic. EYES: Normal conjunctiva. Sclera non-icteric. NECK: Supple. No nuchal rigidity. RESPIRATORY: Clear to auscultation. No wheezes. Normal respiratory effort. CARDIAC: Normal rate. Irregular rhythm. Extremities warm and well perfused. GI: Soft, non-distended. No tenderness to palpation. No rebound or guarding. RECTAL: Deferred. MUSCULOSKELETAL: Atraumatic. Chest examination reveals no tenderness. LOWER EXTREMITIES: Calves are equal size bilaterally and non-tender. Trace edema. Bilateral bandaged, chronic leg wounds. UPPER EXTREMITIES: NVI in left upper extremity. 1.5 cm of erythema and tenderness around 3rd MCP, not extending distally to finger or proximally along tendons. Good cap refill. NEURO: Normal sensorium. No sensory or motor deficits noted. No facial droop. SKIN: Warm and dry. No jaundice noted. Course 151: Past medical records reviewed. The patient was evaluated in room A10. A complete history and physical exam was performed. 1656: I discussed the patient's case with Amna Carvalho. She has informed me that Dr. Vallecillo-Hospital[facility] [place] will further evaluate the patient. Administered Medications Discontinued Medications Sodium Chloride (Nss) 250 mls @ 999 mls/hr IV .Q16M ONE Stop: 01/25/19 16:35 Last Infusion: 01/25/19 16:44 Dose: 0 mls/hr Documented by: [id number] Admin: 01/25/19 16:26 Dose: 999 mls/hr Documented by: [id number] Ceftriaxone Sodium (Rocephin) 1,000 mg in 50 mls @ 100 mls/hr IV NOW STA Stop: 01/25/19 17:24 Last Infusion: 01/25/19 17:29 Dose: 0 mls/hr Documented by: [id number] Admin: 01/25/19 16:59 Dose: 100 mls/hr Documented by: [id number] Medical Decision Making Differential Diagnosis Differential diagnosis: Etiologies such as cellulitis, abscess, MRSA infection, DVT, necrotizing fasciitis, dermatitis, drug eruption, as well as others were entertained. Medical Records Attestation: I reviewed the patient's medical records. Home Medications Current Medication List: was personally reviewed by me Laboratory Data Attestation: I reviewed the patient's lab results. Result diagrams: 01/25/19 15:44 01/25/19 15:44 Lab Results 01/25/19 01/25/19 01/25/19 Range/Units 15:44 15:44 15:44 WBC 8.10 (4.8-10.8) K/uL RBC 3.58 L (4.2-5.4) M/uL Hgb 10.3 L (12.0-16.0) g/dL Hct 34.3 L (37-47) % MCV 95.8 (80-100) fL MCH 28.8 (25-34) pg MCHC 30.0 L (32-36) g/dL RDW Std Deviation 70.8 H (36.4-46.3) fL RDW Coeff of Gerardo 20.3 H (11.5-14.5) % Plt Count 156 (130-400) K/uL MPV 8.3 (7.4-10.4) fL Immature Gran % (Auto) 0.4 % Neut % (Auto) 82.5 % Lymph % (Auto) 5.9 % [place] % (Auto) 9.0 % Eos % (Auto) 2.0 % Baso % (Auto) 0.2 % Immature Gran # (Auto) 0.03 H (0.00-0.02) K/uL Neut # (Auto) 6.68 H (1.4-6.5) K/uL Lymph # (Auto) 0.48 L (1.2-3.4) K/uL [place] # (Auto) 0.73 H (0.11-0.59) K/uL Eos # (Auto) 0.16 (0-0.5) K/uL Baso # (Auto) 0.02 (0-0.2) K/uL Anisocytosis Present Sodium 140 (136-145) mmol/L Potassium 4.3 (3.5-5.1) mmol/L Chloride 107 (98-107) mmol/L Carbon Dioxide 28 (21-32) mmol/L Anion Gap 6.0 (3-11) BUN 64 H (7-18) mg/dl Creatinine 2.30 H (0.6-1.2) mg/dl Est Cr Clr Drug Dosing Not Reportable Est GFR ( Amer) 23.3 Est GFR (Non-Af Amer) 20.1 BUN/Creatinine Ratio 27.8 H (10-20) Glucose 154 H (70-99) mg/dl Lactate 1.9 (0.4-2.0) mmol/L Calcium 9.2 (8.5-10.1) mg/dl Total Creatine Kinase (26-192) U/L 01/25/19 Range/Units 15:44 WBC (4.8-10.8) K/uL RBC (4.2-5.4) M/uL Hgb (12.0-16.0) g/dL Hct (37-47) % MCV (80-100) fL MCH (25-34) pg MCHC (32-36) g/dL RDW Std Deviation (36.4-46.3) fL RDW Coeff of Gerardo (11.5-14.5) % Plt Count (130-400) K/uL MPV (7.4-10.4) fL Immature Gran % (Auto) % Neut % (Auto) % Lymph % (Auto) % [place] % (Auto) % Eos % (Auto) % Baso % (Auto) % Immature Gran # (Auto) (0.00-0.02) K/uL Neut # (Auto) (1.4-6.5) K/uL Lymph # (Auto) (1.2-3.4) K/uL [place] # (Auto) (0.11-0.59) K/uL Eos # (Auto) (0-0.5) K/uL Baso # (Auto) (0-0.2) K/uL Anisocytosis Sodium (136-145) mmol/L Potassium (3.5-5.1) mmol/L Chloride (98-107) mmol/L Carbon Dioxide (21-32) mmol/L Anion Gap (3-11) BUN (7-18) mg/dl Creatinine (0.6-1.2) mg/dl Est Cr Clr Drug Dosing Est GFR ( Amer) Est GFR (Non-Af Amer) BUN/Creatinine Ratio (10-20) Glucose (70-99) mg/dl Lactate (0.4-2.0) mmol/L Calcium (8.5-10.1) mg/dl Total Creatine Kinase 71 (26-192) U/L Imaging Data Radiologist's Impression: Radiology results as stated below per my review and the radiologist's interpretation: LEFT HAND 3 VIEWS CLINICAL HISTORY: Third finger swelling. FINDINGS: 3 views of the left hand are obtained. No prior studies are available for comparison at the time of dictation. The skeletal structures are osteopenic. No acute fracture is seen. There is no bony erosion or periostitis. Moderate to advanced osteoarthritic change is present at the first carpometacarpal joint where there is bony sclerosis, overgrowth, and mild subluxation. There is mild degenerative narrowing at the radiocarpal articulation. Mild osteoarthritic change is seen at the first metacarpophalangeal joint and involving the interphalangeal joints, distal greater than proximal. Mild soft tissue swelling is noted in the fingers, greatest in the third finger. There is atherosclerotic calcification of the regional arteries. IMPRESSION: 1. No acute bony abnormality is identified. 2. Osteopenia and degenerative change as above. 3. Mild soft tissue swelling is suggested in the fingers, greatest in the third digit. Electronically signed by: Tae Bradshaw M.D. 01/25/2019 4:24 PM Blood Pressure Blood Pressure Findings: Normal blood pressure MDM Narrative Patient is a 73-year-old female with a past medical history of intellectual disability, diabetes, CAD, CHF, atrial for ablation Eliquis, hypertension, PVD, prior osteomyelitis and irritation of the right foot, morbid obesity following with wound clinic who is referred here today for what appears to be a possible infection of left hand. Seen by infectious disease there today as well as the wound clinic who referred here. Patient has been on Bactrim and amoxicillin as an outpatient with the leg wound previously growing staph aureus, enterococcus, Enterobacter. Finished antibiotics a few days ago. Placement doing well with the left third posterior MCP joint does have fairly good amount of purple/erythema in the area. Denies any trauma. X-ray obtained to exclude any occult fractures. Not consistent with tenosynovitis. Does not seem that consistent with gout at this point. No wounds or scratches noted there. No significant swelling of the finger itself. Basic labs obtained. Patient does have new evidence of acute kidney injury very small amount of IV fluid. X-ray shows some swelling but no other bony abnormality. Laboratory studies without other significant abnormality. Did see this patient in conjunction with the resident. Attempted to contact Dr. Dodge. Given dose of ceftriaxone here for possible infection of L hand. Given the history of heart failure, gentle fluid supplementation. With the concern for infection of the hand and the renal dysfunction discussed with the [facility] hospitalist for admission. Impression & Plan JASON (acute kidney injury), Cellulitis of hand Discharge Plan Visit Data *Final* Discharge Date/Time: 01/25/19 18:40 Chief Complaint: Swelling/Edema to Extremity Stated Complaint: REF BY WOUND CARE - SWELLING TO L HAND ED Provider: Abhijit Avelar ED Midlevel Provider: Pato Smyth Discharge Problem: JASON (acute kidney injury), Cellulitis of hand Patient Disposition: Admitted As Inpatient Condition: Good Discharge Instructions Interventions: ED Discharge Assessment Last Done: 01/25/19 18:40 The robinsonibe's documentation has been prepared under my direction and personally reviewed by me in its entirety. I confirm that the note above accurately reflects all work, treatment, procedures, and medical decision making performed by me.
[2019-01-25] MEDS ORDERED: PIPERACILL/TAZOBAC CONSULT ACTIVE PRN (19:02)
[2019-01-25] MEDS ORDERED: ONDANSETRON INJ 2 MG/ML 2 ML VIAL IV PRN (19:02)
[2019-01-25] MEDS ORDERED: GLUCOSE 10 TABS/TUBE PO PRN ×2 (19:02→20:00)
[2019-01-25] MEDS ORDERED: POLYETHYLENE (MIRALAX) 17 GM PACK PO PRN (19:02)
[2019-01-25] MEDS ORDERED: GLUCAGON FOR INJ 1 MG VIAL SQ PRN ×2 (19:02→20:00)
[2019-01-25] MEDS ORDERED: GLUCOSE 40% GEL 15 GM TUBE PO PRN ×2 (19:02→20:00)
[2019-01-25] MEDS ORDERED: CARBOHYDRATES FOR HYPOGLYCEMIA PO PRN ×2 (19:02→20:00)
[2019-01-25] MEDS ORDERED: DEXTROSE 50% 50 ML SYRINGE IV PRN ×2 (19:02→20:00)
[2019-01-25] MEDS ORDERED: MICONAZOLE NITRATE POWDER 43 GM EXT PRN (19:03)
[2019-01-25] MEDS ORDERED: DAPTOMYCIN CONSULT ACTIVE PRN (19:21)
[2019-01-25] MEDS ORDERED: PHARMACY GLYCEMIC MGMT CONSULT PRN (19:25)
[2019-01-25] MEDS ORDERED: PIPERACILLIN/TAZOBACTAM 4.5 GM in DEXTROSE 5% 100 ML IV ONE (19:30)
[2019-01-25] MEDS: DIGOXIN 0.125 MG TAB PO SCH (20:49)
[2019-01-25] MEDS: TRAZODONE HCL 50 MG TAB PO SCH (20:51)
[2019-01-25] MEDS: CARVEDILOL 6.25 MG TAB PO SCH (20:51)
[2019-01-25] MEDS: DOCUSATE SODIUM/SENNA 50/8.6MG TAB PO SCH (20:52)
[2019-01-25] MEDS: APIXABAN 5 MG TABLET PO SCH (20:53)
[2019-01-25] MEDS: INSULIN ASPART 100 UNITS/ML 3 ML PEN SC SCH (20:54)
[2019-01-25] MEDS: GABAPENTIN 100 MG CAP PO SCH (20:54)
[2019-01-25] MEDS: INSULIN GLARGINE SOLOSTAR 100 UNITS/ML 3 ML PEN SC SCH (20:59)
[2019-01-25] MEDS ORDERED: DAPTOmycin 450 MG in SYRINGE 0 ML IV SCH (21:00)
[2019-01-25] MEDS: ACETAMINOPHEN 325 MG TAB PO PRN (21:18)
[2019-01-25] MEDS ORDERED: TRAMADOL HCL 50 MG TABLET PO PRN (23:19)
[2019-01-25] MEDS ORDERED: HYDROmorphone INJ 0.5 MG/0.5 ML SYR IV PRN (23:19)
[2019-01-26] MEDS: INSULIN ASPART 100 UNITS/ML 3 ML PEN SC SCH ×6 (00:11→20:47)
[2019-01-26] MEDS: PIPERACILLIN/TAZOBACTAM 4.5 GM in DEXTROSE 5% 100 ML IV SCH ×3 (02:22→18:03)
[2019-01-26] MEDS: LEVOTHYROXINE SODIUM 75 MCG TABLET PO SCH (06:11)
[2019-01-26 07:07] LABS: Basophils # (auto) 0.03 K/uL (0-0.2); Basophils % (auto) 0.5 %; Eosinophils # (auto) 0.19 K/uL (0-0.5); Eosinophils % (auto) 3.1 %; Hematocrit (blood only) 34.1 % (37-47); Hemoglobin 10.3 g/dL (12.0-16.0); Immature Granulocytes # (auto) 0.01 K/uL (0.00-0.02); Immature Granulocytes % (auto) 0.2 %; Lymphocytes # (auto) 0.51 K/uL (1.2-3.4); Lymphocytes % (auto) 8.2 %; Mean Corpuscular Hgb Conc 30.2 g/dL (32-36); Mean Corpuscular Volume 95.3 fL (80-100); Mean Platelet Volume 8.2 fL (7.4-10.4); Monocytes # (auto) 0.48 K/uL (0.11-0.59); Monocytes % (auto) 7.7 %; Neutrophils # (auto) 4.98 K/uL (1.4-6.5); Neutrophils % (auto) 80.3 %; Platelet Count 146 K/uL (130-400); RDW Standard Deviation 69.6 fL (36.4-46.3); Red Blood Count 3.58 M/uL (4.2-5.4)
[2019-01-26 07:29] LABS: Anisocytosis Present
[2019-01-26 07:30] LABS: Estimated Average Glucose 134 mg/dl; Hemoglobin A1C 6.3 % (4.5-5.6)
[2019-01-26 07:44] LABS: BUN Creatinine Ratio 25.3 (10-20); Calcium 8.9 mg/dl (8.5-10.1); Creatinine Clr Calc Pharmacy 31.1 ml/min; Est GFR (African American) 29.2; Est GFR (Non-African American) 25.2; Potassium 4.1 mmol/L (3.5-5.1)
[2019-01-26] MEDS: GABAPENTIN 100 MG CAP PO SCH ×3 (08:29→20:46)
[2019-01-26] MEDS: AMIODARONE 200 MG TAB PO SCH (08:29)
[2019-01-26] MEDS: FERROUS SULFATE 325 MG TAB PO SCH ×2 (08:29→18:03)
[2019-01-26] MEDS: CHOLECALCIFEROL 1,000 UNITS TAB PO SCH (08:29)
[2019-01-26] MEDS: ASPIRIN 81 MG ECTAB PO SCH (08:29)
[2019-01-26] MEDS: ISOSORBIDE MONO EXTENDED REL 30 MG TABCR PO SCH (08:30)
[2019-01-26] MEDS: INSULIN GLARGINE SOLOSTAR 100 UNITS/ML 3 ML PEN SC SCH ×2 (08:30→20:46)
[2019-01-26] MEDS: APIXABAN 5 MG TABLET PO SCH ×2 (08:30→20:46)
[2019-01-26] MEDS: DOCUSATE SODIUM/SENNA 50/8.6MG TAB PO SCH ×2 (08:30→20:46)
[2019-01-26] MEDS: CARVEDILOL 6.25 MG TAB PO SCH ×2 (08:30→20:46)
[2019-01-26] MEDS ORDERED: ASPIRIN CHEW 324 MG PO SCH (09:00)
--- NOTE | 2019-01-26 09:59 | Hospitalist Progress Note ---
Date of Service January 26, 2019 Assessment & Plan (1) Bilateral lower leg cellulitis: (2) Venous stasis dermatitis of both lower extremities: afebrile no leukocytosis wound cultures pending blood cultures pending on Dapto and Zosyn ID consulted (3) Swelling of joint of left hand: L dorsum of hand MTP region 24 with edema, erythema. Good active and passive range of motion. No pain to palpation. Possible cellulitis versus arthropathy versus trauma X-ray negative for fracture Ortho consulted MRI ordered (4) CKD (chronic kidney disease), stage IV: Acute on chronic CKD stage IV Baseline creatinine 1.61.8 BUN/creatinine 64 and 2.30 on admission Possibly in setting of Bactrim use x1 month She did receive IVF while in ED HOLD Lasix crea now 1.9 monitor (5) Coronary artery disease: Patient denies chest pain or shortness of breath Continue ASA, Coreg, Imdur Hold statin secondary to initiating daptomycin (6) CHF (congestive heart failure): Patient appears euvolemic on exam, weight stable at 104.3 kg Patient does have chronic lower extremity venous stasis ulceration and edema Continue Coreg, Imdur, digoxin Holding Lasix and KCl for now given elevation in renal function last echo 08/2018 revealed EF 55 to 6% with grade 2 diastolic (7) Atrial fibrillation: Rate and rhythm controlled on amiodarone, digoxin, Coreg Anticoagulated with Eliquis (8) HTN (hypertension): Blood pressure controlled on carvedilol, Imdur, Lasix Holding Lasix and KCl (9) DM type 2 (diabetes mellitus, type 2): A1C 08/31/18 6.7 mostly well controlled Pt on high dose 70/30 insulin consult glycemic pharmacist for assistance given concurrent antibiotic and presumed infection a1c 6.3 (10) Anemia: H/H stable at 10.3 and 34.3 no signs or symptoms of bleeding Monitor CBC (11) Mild intellectual disability: Patient pleasant but tearful, mood stable Monitor (12) DVT prophylaxis: Continue Eliquis Disposition: To be determined Follow-up: PCP Dr. Lola Jean upon discharge case discussed with patient and director of [facility], in detail and at length all questions answered they are agreeable and comfortable with the plan of care Subjective ff up for leg cellulitis, hand cellulitis seen resting in bedside chair, comfortable not in distress still has pain on her lower legs denies fever/chills no chest pain, dyspnea, palpitaitons, dizziness no other symptoms Review of Systems Review of Systems: All systems reviewed & are unremarkable except as noted in HPI & below Physical Exam Physical Exam: General- oriented x 3, not in distress, speaks in sentences with no effort or accessory muscle use Head- atraumatic Eyes- PERRL, EOMI, anicteric ENT- oropharynx clear Neck- supple, no JVD, no adenopathy, no thyromegaly; carotids +2/2, no bruits appreciated Lungs- clear to auscultation bilaterally, no rales/wheezes Heart- normal rate, regular rhythm; no murmur, no gallop, no rub appreciated Abdomen- normal bowel sounds, nondistended, soft, nontender, no masses or hepatosplenomegaly Extremities- left hand- (+) edema, erythema, tenderness on the dorsal aspect mostly MTP 2-4 B/L lower legs- (+) erythema, mild warmth, mild tenderness, mild edema no calf tenderness; peripheral pulses intact small wounds notes- scabbing, no active discharge Neuro- alert, oriented x 3; CN 2-12 grossly intact; motor 5/5 bilaterally;sensation 100% on all extremities; no other gross focal neurologic deficits Skin- warm & dry Results & Data Vital Signs (Past 12 Hours) Vital Signs Temp Pulse Pulse Resp BP Pulse Ox 01/26/19 08:00 60 01/26/19 07:31 36.4 C L 60 20 112/68 90 01/26/19 00:05 63 01/25/19 23:00 36.4 C L 62 20 122/69 93 Laboratory Results Laboratory Results - last 24 hr 01/25/19 01/25/19 01/26/19 15:44 19:06 00:05 WBC RBC Hgb Hct MCV MCH MCHC RDW Std Deviation RDW Coeff of Gerardo Plt Count MPV Immature Gran % (Auto) Neut % (Auto) Lymph % (Auto) [place] % (Auto) Eos % (Auto) Baso % (Auto) Immature Gran # (Auto) Neut # (Auto) Lymph # (Auto) [place] # (Auto) Eos # (Auto) Baso # (Auto) Anisocytosis Sodium Potassium Chloride Carbon Dioxide Anion Gap BUN Creatinine Est Cr Clr Drug Dosing Est GFR ( Amer) Est GFR (Non-Af Amer) BUN/Creatinine Ratio Glucose POC Glucose 125 H 176 H Estimat Average Glucose Hemoglobin A1c Calcium Total Creatine Kinase 71 01/26/19 01/26/19 01/26/19 04:09 06:57 06:57 WBC 6.20 RBC 3.58 L Hgb 10.3 L Hct 34.1 L MCV 95.3 MCH 28.8 MCHC 30.2 L RDW Std Deviation 69.6 H RDW Coeff of Gerardo 20.0 H Plt Count 146 MPV 8.2 Immature Gran % (Auto) 0.2 Neut % (Auto) 80.3 Lymph % (Auto) 8.2 [place] % (Auto) 7.7 Eos % (Auto) 3.1 Baso % (Auto) 0.5 Immature Gran # (Auto) 0.01 Neut # (Auto) 4.98 Lymph # (Auto) 0.51 L [place] # (Auto) 0.48 Eos # (Auto) 0.19 Baso # (Auto) 0.03 Anisocytosis Present Sodium 140 Potassium 4.1 Chloride 106 Carbon Dioxide 29 Anion Gap 5.0 BUN 48 H Creatinine 1.91 H D Est Cr Clr Drug Dosing 31.1 Est GFR ( Amer) 29.2 Est GFR (Non-Af Amer) 25.2 BUN/Creatinine Ratio 25.3 H Glucose 106 H POC Glucose 117 H Estimat Average Glucose Hemoglobin A1c Calcium 8.9 Total Creatine Kinase 01/26/19 01/26/19 01/26/19 06:57 07:22 11:28 WBC RBC Hgb Hct MCV MCH MCHC RDW Std Deviation RDW Coeff of Gerardo Plt Count MPV Immature Gran % (Auto) Neut % (Auto) Lymph % (Auto) [place] % (Auto) Eos % (Auto) Baso % (Auto) Immature Gran # (Auto) Neut # (Auto) Lymph # (Auto) [place] # (Auto) Eos # (Auto) Baso # (Auto) Anisocytosis Sodium Potassium Chloride Carbon Dioxide Anion Gap BUN Creatinine Est Cr Clr Drug Dosing Est GFR ( Amer) Est GFR (Non-Af Amer) BUN/Creatinine Ratio Glucose POC Glucose 127 H 229 H Estimat Average Glucose 134 Hemoglobin A1c 6.3 H Calcium Total Creatine Kinase 01/26/19 16:08 WBC RBC Hgb Hct MCV MCH MCHC RDW Std Deviation RDW Coeff of Gerardo Plt Count MPV Immature Gran % (Auto) Neut % (Auto) Lymph % (Auto) [place] % (Auto) Eos % (Auto) Baso % (Auto) Immature Gran # (Auto) Neut # (Auto) Lymph # (Auto) [place] # (Auto) Eos # (Auto) Baso # (Auto) Anisocytosis Sodium Potassium Chloride Carbon Dioxide Anion Gap BUN Creatinine Est Cr Clr Drug Dosing Est GFR ( Amer) Est GFR (Non-Af Amer) BUN/Creatinine Ratio Glucose POC Glucose 150 H Estimat Average Glucose Hemoglobin A1c Calcium Total Creatine Kinase (1) DM type 2 (diabetes mellitus, type 2) Diabetes mellitus complication detail: with other circulatory complications Diabetes mellitus complication status: with circulatory complication Diabetes mellitus medical terminologist insulin use: with medical terminologist use Qualified Code(s): E11.59 - Type 2 diabetes mellitus with other circulatory complications; Z79.4 - halfway (current) use of insulin (2) Coronary artery disease Associated angina: without angina Coronary Disease-Associated Artery/Lesion type: [place] artery [place] vs. transplanted heart: [place] heart Qualified Code(s): I25.10 - Atherosclerotic heart disease of [place] coronary artery without angina pectoris (3) Anemia Anemia type: due to chronic kidney disease Chronic kidney disease stage: stage 4 (severe) Qualified Code(s): N18.4 - Chronic kidney disease, stage 4 (severe); D63.1 - Anemia in chronic kidney disease (4) Atrial fibrillation Atrial fibrillation type: paroxysmal Qualified Code(s): I48.0 - Paroxysmal atrial fibrillation (5) HTN (hypertension) Hypertension type: essential hypertension Qualified Code(s): I10 - Essential (primary) hypertension
[2019-01-26] MEDS ORDERED: INSULIN GLARGINE SOLOSTAR 100 UNITS/ML 3 ML PEN SC ONE (13:15)
--- NOTE | 2019-01-26 13:58 | Pharmacy Report ---
Glycemic Control Consultation - Date of Service January 26, 2019 - Scope Scope: Glycemic Pharmacist consulted by Amna Luke PA-C on 01/25/19 for glycemic control and to write orders per [facility] inpatient glycemic control protocol - Objective Weight: 104.3 kg Accuchecks BSG (last 24hrs): 01/25/19 01/25/19 01/26/19 15:44 19:06 00:05 Glucose 154 H POC Glucose 125 H 176 H 01/26/19 01/26/19 01/26/19 04:09 06:57 07:22 Glucose 106 H POC Glucose 117 H 127 H 01/26/19 11:28 Glucose POC Glucose 229 H Laboratory Data (last 24hrs): 01/25/19 01/26/19 15:44 06:57 Potassium 4.3 4.1 Carbon Dioxide 28 29 Anion Gap 6.0 5.0 Creatinine 2.30 H 1.91 H D Est Cr Clr Drug Dosing Not Reportable 31.1 HbA1c: Hemoglobin A1c 6.3 % (4.5-5.6) H 01/26/19 06:57 - Recent Pertinent Medications Outpatient Anti-diabetic Regimen: * Novolin 70/30 65 units at breakfast and 56 units with dinner * Novolog 4 units with lunch The patient is currently receiving: * Basal insulin: NONE * Correctional Insulin: Novolog Correction per scale ACHS Goal Range: Low 120 mg/dL - High 160 mg/dL Correction Factor: 20 mg/dL/unit * Prandial insulin: Per carb ratio of 1 unit per 8 grams CHO consumed Risk Factors for Insulin Resistance: * Infection: on Zosyn and daptomycin * Diet: T2DM - Assessment & Plan Assessment & Plan: ASSESSMENT: * Ms Gudino is a 73 y/o F who presents with worsening cellulitis. She has excellently controlled diabetes at home on 125 units/day. During a previously hospitalization, the patient's blood sugars were well controlled on Lantus 15 units BID plus Novolog CF 10 and CR of 4. * At first, the patient's blood sugars were extremely low this morning and it appeared that the patient's course may be different this hospitalization. However, lunchtime the patient's blood sugar was over 200 mg/dL. Restarted the above regimen. Patient's kidney function is returning to normal. Expect dinner blood sugar to be elevated still as changes to Novolog will not take effect until dinner. PLAN FOR INPATIENT GLYCEMIC CONTROL: * Basal insulin * Lantus 15 units SQ BID * Bolus insulin * NovoLog per scale ACHS or Q6hrs while NPO * Goal Range: Low 120 mg/dL - High 160 mg/dL * Correction Factor: 15 mg/dL/unit * Nutritional / Prandial insulin per carb ratio of 1 unit per 4 grams CHO consumed * Please note that the plan above was derived based on current level of insulin resistance and hospital stress. These recommendations are appropriate for inpatient admission only. Plan of care upon discharge will need to be reassessed to avoid potential outpatient hypo/hyperglycemia. Thank you.
--- NOTE | 2019-01-26 14:14 | Infectious Disease Consult ---
Date of Consultation January 26, 2019 Assessment & Plan (1) Bilateral lower leg cellulitis: Patient with bilateral lower extremity cellulitis in the setting stasis disease with ulceration not clear what process of left hand is, if cellulitis will be well covered by treatment for lower extremity cellulitis. Await with interest MRI of the hand. Continue on daptomycin and Zosyn pending blood cultures. Length of IV antibiotics will be determined by clinical response and culture results. Will follow. (2) Venous stasis dermatitis of both lower extremities: (3) Swelling of joint of left hand: History of Present Illness Reason for Consultation: Bilateral lower extremity cellulitis and left hand cellulitis Attending Physician: Avinash Mena MD History of Present Illness 73-year-old female followed by me at wound care center with history of diabetes mellitus, peripheral arterial disease, severe venous stasis disease, recurrent leg ulcerations, stage IV chronic kidney disease, who was seen yesterday at the wound care center for routine follow-up, and was found to have evidence of distress with worsening erythema of both legs, along with new area of erythema and tenderness in the dorsum of her left hand. She states that she been having low-grade fevers and was not feeling well. She was referred for admission and started empirically on Zosyn and daptomycin. X-rays of the hand negative for fracture. Blood cultures are pending.States pain currently 3 out of 10 in intensity both legs. Allergies Allergy/AdvReac Type Severity Reaction Status Date / Time No Known Allergies Allergy Verified 01/25/19 15:46 Home Medications Home Medications Medication Instructions Recorded Confirmed Type amiodarone 200 mg tablet 200 mg PO QAM 02/22/18 01/25/19 History apixaban 5 mg tablet 5 mg PO BID 02/22/18 01/25/19 History aspirin 81 mg chewable tablet 81 mg PO QAM 02/22/18 01/25/19 History carvedilol 6.25 mg tablet 6.25 mg PO BID 02/22/18 01/25/19 History cholecalciferol (vitamin D3) 2,000 2,000 units PO QAM 02/22/18 01/25/19 History unit capsule digoxin 125 mcg tablet 0.125 mg PO Q2D 02/22/18 01/25/19 History ferrous sulfate 325 mg (65 mg 325 mg PO BIDM tab 02/22/18 01/25/19 History iron) tablet,delayed release furosemide 40 mg tablet 40 mg PO QAM 02/22/18 01/25/19 History gabapentin 100 mg capsule 100 mg PO TID cap 02/22/18 01/25/19 History insulin aspar prt-insulin aspart 56 units SQ QDD ml 02/22/18 01/25/19 History 100 unit/mL (70-30) subcutaneous soln insulin aspar prt-insulin aspart 65 units SQ QDB ml 02/22/18 01/25/19 History 100 unit/mL (70-30) subcutaneous soln insulin aspart (U-100) 100 unit/mL 4 units SQ QDL ml 02/22/18 01/25/19 History (3 mL) subcutaneous pen isosorbide mononitrate ER 30 mg 30 mg PO QAM 02/22/18 01/25/19 History tablet,extended release 24 hr sennosides 8.6 mg-docusate sodium 1 tab PO BID 02/22/18 01/25/19 History 50 mg tablet simvastatin 20 mg tablet 20 mg PO QPM 02/22/18 01/25/19 History furosemide 20 mg PO .DAILY AT 1500 08/30/18 01/25/19 History levothyroxine 75 mcg PO DAILYBB 08/30/18 01/25/19 History potassium chloride 10 meq PO QAM 08/30/18 01/25/19 History trazodone 50 mg PO HS 08/30/18 01/25/19 History amoxicillin 500 mg capsule 500 mg PO TID #90 cap 12/20/18 01/25/19 Rx acetaminophen [Tylenol Extra 1,000 mg PO Q6H PRN MDD 3 GRAMS/24 01/25/19 01/25/19 History Strength] HOURS. acetaminophen [Tylenol] 650 mg PO Q4 PRN MDD 3 GRAMS/24 01/25/19 01/25/19 History HOURS magnesium hydroxide [Milk of 30 ml PO DAILY PRN 01/25/19 01/25/19 History Magnesia] miconazole nitrate [Zeasorb AF] 1 applic TOPICAL DIRECTED 01/25/19 01/25/19 History polyethylene glycol 3350 [Miralax] 17 g PO DAILY PRN 01/25/19 01/25/19 History Patient History Medical History Mild intellectual disability (Chronic) Chronic venous insufficiency (Chronic) DM type 2 (diabetes mellitus, type 2) (Chronic) Atrial fibrillation (Chronic) HTN (hypertension) (Chronic) Coronary artery disease (Chronic) Pacemaker (Chronic) History of uterine cancer (Chronic) "s/p XRT" History of osteomyelitis (Chronic) "R third toe" Anemia (Chronic) CHF (congestive heart failure) (Chronic) Acquired claw toe of left foot (Acute) Acquired claw toe of right foot (Acute) Acquired hallux valgus of right foot (Acute) Diabetes mellitus with diabetic polyneuropathy (Acute) Hallux valgus (acquired), left foot (Acute) Type 2 diabetes mellitus with diabetic peripheral angiopathy without gangrene (Acute) A-fib (Chronic) Anemia (Chronic) CHF (congestive heart failure) (Chronic) Diabetes 1.5, managed as type 2 (Chronic) Diabetic neuropathy (Chronic) Hyperlipidemia (Chronic) Uterine cancer (Resolved) Surgical History History of lumpectomy of left breast (Resolved) History of amputation of lesser toe of right foot (Chronic) History of total bilateral knee replacement (Chronic) S/P cholecystectomy (Chronic) Status post placement of cardiac pacemaker (Chronic) History of amputation of lesser toe of right foot (Acute) S/P cardiac pacemaker procedure (Resolved) S/P cholecystectomy (Resolved) Status post bilateral knee replacements (Resolved) Family History Mother Pneumonia Social History Preferred Language: Kenyan Communication Ability: Effective Visual Impairment: No Limitations 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: Normal 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 Beliefs That Will Affect Care: None marital status: Single Current Living Situation: Other Current Living Situation Comment: senior living - House of Care Feels Safe at Home: Yes Smoking Status: Never smoker Do You Dip or Chew Tobacco: No ; Second Hand Exposure: No ; Hx Alcohol Use: No Hx Substance Use: No Review of Systems Review of Systems: All systems reviewed & are unremarkable except as noted in HPI & below Physical Exam Constitutional: WD/WN, vitals as above comfortable; no acute distress Eyes: PERRL, conjunctivae normal, anicteric sclerae ENMT: external ear and nose normal, oropharynx normal Neck: trachea midline, no thyromegaly neck nontender Respiratory: normal respiratory effort, lungs clear to auscultation normal percussion; does not use accessory muscles Cardiovascular: Rate/Rhythm: regular rate and regular rhythm Heart Sounds: normal S1 and normal S2; no gallop, no murmur and no cardiac rub Vessels: normal peripheral pulses; no JVD Gastrointestinal (Abdomen): normal bowel sounds, soft, nontender, no hepatosplenomegaly Musculoskeletal: no cyanosis or clubbing, extremities motor strength 5/5 Spine: thoracic spine normal to inspection and lumbar spine normal to inspection; no cervical spinal tenderness Skin: no rashes, warm and dry normal turgor, + ulcer (Multiple venous stasis ulcerations) and + erythema (Both legs from foot to knee, Dorsum of left hand) Neurologic: patellar DTR's 2+ bilat, sensation intact no focal motor deficits Psychiatric: A+Ox3, euthymic affect Orientation: cooperative Lymphatic: no cervical or axillary lymphadenopathy no inguinal lymphadenopathy Results & Data Vital Signs (Past 12 Hours) Vital Signs Temp Pulse Pulse Resp BP Pulse Ox 01/26/19 11:50 36.4 C L 62 20 114/67 95 01/26/19 08:00 60 01/26/19 07:31 36.4 C L 60 20 112/68 90 Laboratory Results Short CBC 01/25/19 01/26/19 Range/Units 15:44 06:57 WBC 8.10 6.20 (4.8-10.8) K/uL Hgb 10.3 L 10.3 L (12.0-16.0) g/dL Hct 34.3 L 34.1 L (37-47) % Plt Count 156 146 (130-400) K/uL BMP 01/25/19 01/26/19 15:44 06:57 Sodium 140 140 Potassium 4.3 4.1 Chloride 107 106 Carbon Dioxide 28 29 BUN 64 H 48 H Creatinine 2.30 H 1.91 H D Glucose 154 H 106 H Calcium 9.2 8.9 Cardiac Enzymes 01/25/19 Range/Units 15:44 Total Creatine Kinase 71 (26-192) U/L Diagnostic Findings LEFT HAND 3 VIEWS CLINICAL HISTORY: Third finger swelling. FINDINGS: 3 views of the left hand are obtained. No prior studies are available for comparison at the time of dictation. The skeletal structures are osteopenic. No acute fracture is seen. There is no bony erosion or periostitis. Moderate to advanced osteoarthritic change is present at the first carpometacarpal joint where there is bony sclerosis, overgrowth, and mild subluxation. There is mild degenerative narrowing at the radiocarpal articulation. Mild osteoarthritic change is seen at the first metacarpophalangeal joint and involving the interphalangeal joints, distal greater than proximal. Mild soft tissue swelling is noted in the fingers, greatest in the third finger. There is atherosclerotic calcification of the regional arteries. IMPRESSION: 1. No acute bony abnormality is identified. 2. Osteopenia and degenerative change as above. 3. Mild soft tissue swelling is suggested in the fingers, greatest in the third digit. Electronically signed by: Tae Bradshaw M.D. 01/25/2019 4:24 PM Dictated: 01/25/19 1622 Transcribed: 01/25/19 1622 PG Care Time/CCT Total # of Minutes Spent Total Time Spent with Patient: Total time spent is greater than 50% in coordination of care (as documented) at patient's floor/unit and/or counseling patient:
--- NOTE | 2019-01-26 14:42 | Magnetic Resonance Report ---
MR hand LT wo con HISTORY: 73 years-old Female hand swelling, cellulitis acute left hand pain and swelling with report ed cellulitis COMPARISON: Left hand radiographs 01/25/2019 TECHNIQUE: Multiplanar multisequence MRI of the left hand was obtained without the use of IV contrast . FINDINGS: There is mild to moderate subcutaneous and deep tissue edema about the hand, most pronounced dorsally . No drainable fluid collection or focal mass identified. Edema extends available into the digits, mo st pronounced at the level of the proximal phalanges. The imaged flexor and extensor tendons appear u nremarkable. No evidence of significant tendinosis or tenosynovitis. The flexor retinaculum and media n nerve appear unremarkable. The visualized ulnar nerve is also within normal limits. Severe osteoarthritis about the first carpal metacarpal joint with subcortical cystic change and trac e joint effusion with prominent marginal osteophytic spurring and high-grade chondromalacia. There is mild osteoarthritis noted about the radiocarpal, metacarpophalangeal and interphalangeal joints. The re is mild to moderate osteoarthritis about the third metacarpophalangeal joint with mild likely reac tive bone marrow edema and chondral thinning. No acute fracture, dislocation, significant bone marrow edema or bony erosive change to suggest osteomyelitis. IMPRESSION: 1. Mild to moderate subcutaneous and deep tissue edema about the hand which is most pronounced dorsal ly compatible with patient's clinical history of cellulitis. No drainable fluid collection or focal s oft tissue mass identified. 2. No acute fracture, dislocation, bony erosive change or significant marrow edema. 3. Degenerative changes as above with severe first carpometacarpal osteoarthritis. The above report was generated using voice recognition software. It may contain grammatical, syntax o r spelling errors. Electronically signed by: Larry Hyde M.D. 01/26/2019 2:41 PM
--- NOTE | 2019-01-26 15:15 | Wound Consultation ---
Date of Consultation January 26, 2019 Assessment & Plan (1) Bilateral lower leg cellulitis: Wounds are stable wound to improved. No debridement was required today. Which will be dressed with Acticoat 7 and Coban lite wrap. Continue antibiotics per Dr. Dodge. Thank millimeters. The care of this patient. Please not hesitate to call with any questions. We will see patient in the office in 1 week. History of Present Illness Attending Physician: Avinash Mena MD This is a 73-year-old female known to the wound clinic who is being seen for chronic venous stasis ulcers. She was sent to the ER yesterday by Dr. Dodge to questionable infection in her hand. Seen the patient in follow-up of her chronic venous ulcers. Allergies Allergy/AdvReac Type Severity Reaction Status Date / Time No Known Allergies Allergy Verified 01/25/19 15:46 Home Medications Home Medications Medication Instructions Recorded Confirmed Type amiodarone 200 mg tablet 200 mg PO QAM 02/22/18 01/25/19 History apixaban 5 mg tablet 5 mg PO BID 02/22/18 01/25/19 History aspirin 81 mg chewable tablet 81 mg PO QAM 02/22/18 01/25/19 History carvedilol 6.25 mg tablet 6.25 mg PO BID 02/22/18 01/25/19 History cholecalciferol (vitamin D3) 2,000 2,000 units PO QAM 02/22/18 01/25/19 History unit capsule digoxin 125 mcg tablet 0.125 mg PO Q2D 02/22/18 01/25/19 History ferrous sulfate 325 mg (65 mg 325 mg PO BIDM tab 02/22/18 01/25/19 History iron) tablet,delayed release furosemide 40 mg tablet 40 mg PO QAM 02/22/18 01/25/19 History gabapentin 100 mg capsule 100 mg PO TID cap 02/22/18 01/25/19 History insulin aspar prt-insulin aspart 56 units SQ QDD ml 02/22/18 01/25/19 History 100 unit/mL (70-30) subcutaneous soln insulin aspar prt-insulin aspart 65 units SQ QDB ml 02/22/18 01/25/19 History 100 unit/mL (70-30) subcutaneous soln insulin aspart (U-100) 100 unit/mL 4 units SQ QDL ml 02/22/18 01/25/19 History (3 mL) subcutaneous pen isosorbide mononitrate ER 30 mg 30 mg PO QAM 02/22/18 01/25/19 History tablet,extended release 24 hr sennosides 8.6 mg-docusate sodium 1 tab PO BID 02/22/18 01/25/19 History 50 mg tablet simvastatin 20 mg tablet 20 mg PO QPM 02/22/18 01/25/19 History furosemide 20 mg PO .DAILY AT 1500 08/30/18 01/25/19 History levothyroxine 75 mcg PO DAILYBB 08/30/18 01/25/19 History potassium chloride 10 meq PO QAM 08/30/18 01/25/19 History trazodone 50 mg PO HS 08/30/18 01/25/19 History amoxicillin 500 mg capsule 500 mg PO TID #90 cap 12/20/18 01/25/19 Rx acetaminophen [Tylenol Extra 1,000 mg PO Q6H PRN MDD 3 GRAMS/24 01/25/19 01/25/19 History Strength] HOURS. acetaminophen [Tylenol] 650 mg PO Q4 PRN MDD 3 GRAMS/24 01/25/19 01/25/19 History HOURS magnesium hydroxide [Milk of 30 ml PO DAILY PRN 01/25/19 01/25/19 History Magnesia] miconazole nitrate [Zeasorb AF] 1 applic TOPICAL DIRECTED 01/25/19 01/25/19 History polyethylene glycol 3350 [Miralax] 17 g PO DAILY PRN 01/25/19 01/25/19 History Patient History Medical History Mild intellectual disability (Chronic) Chronic venous insufficiency (Chronic) DM type 2 (diabetes mellitus, type 2) (Chronic) Atrial fibrillation (Chronic) HTN (hypertension) (Chronic) Coronary artery disease (Chronic) Pacemaker (Chronic) History of uterine cancer (Chronic) "s/p XRT" History of osteomyelitis (Chronic) "R third toe" Anemia (Chronic) CHF (congestive heart failure) (Chronic) Acquired claw toe of left foot (Acute) Acquired claw toe of right foot (Acute) Acquired hallux valgus of right foot (Acute) Diabetes mellitus with diabetic polyneuropathy (Acute) Hallux valgus (acquired), left foot (Acute) Type 2 diabetes mellitus with diabetic peripheral angiopathy without gangrene (Acute) A-fib (Chronic) Anemia (Chronic) CHF (congestive heart failure) (Chronic) Diabetes 1.5, managed as type 2 (Chronic) Diabetic neuropathy (Chronic) Hyperlipidemia (Chronic) Uterine cancer (Resolved) Surgical History History of lumpectomy of left breast (Resolved) History of amputation of lesser toe of right foot (Chronic) History of total bilateral knee replacement (Chronic) S/P cholecystectomy (Chronic) Status post placement of cardiac pacemaker (Chronic) History of amputation of lesser toe of right foot (Acute) S/P cardiac pacemaker procedure (Resolved) S/P cholecystectomy (Resolved) Status post bilateral knee replacements (Resolved) Family History Mother Pneumonia Social History Preferred Language: Lithuanian Communication Ability: Effective Visual Impairment: No Limitations 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 Wounds are covered with fibrin and slough. There is moderate drainage and no foul odors. Neurologic: awake; not confused Psychiatric: A+Ox3, euthymic affect Results & Data Vital Signs (Past 12 Hours) Vital Signs Temp Pulse Pulse Resp BP Pulse Ox 01/26/19 11:50 36.4 C L 62 20 114/67 95 01/26/19 08:00 60 01/26/19 07:31 36.4 C L 60 20 112/68 90
[2019-01-26] MEDS: TRAZODONE HCL 50 MG TAB PO SCH (20:46)
[2019-01-27] MEDS: PIPERACILLIN/TAZOBACTAM 4.5 GM in DEXTROSE 5% 100 ML IV SCH ×3 (02:17→18:18)
--- NOTE | 2019-01-27 03:45 | Consultation Report ---
DATE OF CONSULTATION: 01/26/2019 This is a consultation that was seen at the request of Dr. Ankita Vallecillo and Amna Luke PA-C, and Dr. Lola Jean. HISTORY OF PRESENT ILLNESS: This is a 73-year-old female who was in her typical state of health until when she noticed pain and swelling in her left hand. She has been under the care of the wound care center for an extended period of time for bilateral lower extremity venous stasis ulcers and chronic cellulitis. She was seen by Dr. Dodge. He is concerned about her left hand swelling, which is new and he then referred to the hospital for IV antibiotics and further evaluation and management. The patient states that her hand became painful and swollen on . She had no prior trauma, did not have any falls, no loss of consciousness. No other associated injuries to the left hand or her upper extremity. She had no prior flares of arthritis, which she can recall. She has never had any gout that she knows of. All history is per the patient. PAST MEDICAL HISTORY: Bilateral venous stasis ulcers and bilateral venous stasis lower extremities, chronic mild intellectual disability, type 2 diabetes mellitus, atrial fibrillation, hypertension, coronary artery disease, history of uterine cancer, history of osteomyelitis of the right third toe, chronic anemia, CHF, claw toes of the left foot, claw toes of the right foot, hallux valgus right foot, diabetic polyneuropathy, hallux valgus of the left foot, diabetic peripheral angiopathy, chronic AFib, chronic anemia, congestive heart failure, hyperlipidemia. PAST SURGICAL HISTORY: History of lumpectomy of left breast, amputation of lesser toe right foot, total bilateral knee replacement, cholecystectomy, cardiac pacemaker, amputation of lesser toe right foot, cholecystectomy. ALLERGIES: No known drug allergies. MEDICATIONS: Please see the extensive list present in the medical record. SOCIAL HISTORY: She lives in a house of care alf. Denies tobacco, alcohol, or drug use. PHYSICAL EXAMINATION: GENERAL: This is a 73-year-old woman sitting at bedside in a bedside chair napping. She arouses easily and with evidence of chronic mental disability. She answers questions appropriately. EXTREMITIES: Examination of the left hand demonstrate the skin warm, dry, and intact. Slight erythema dorsal third metacarpophalangeal joint with local warmth. There is no significant streaking. There is moderate tenderness over the third metacarpophalangeal joint extending proximally, distally, medially, and laterally. Kanavel's signs are negative. She has some limitation in active and passive flexion and extension of the third metacarpophalangeal joint. Passive range of motion limited due to pain. Tenderness to palpation of the third metacarpophalangeal joint. RADIOGRAPHIC DATA: Review of the radiographs and MRI demonstrates, 1. Left hand cellulitis. 2. First carpometacarpal joint degenerative joint disease, severe. 3. Third metacarpophalangeal joint, [id number] degenerative changes with local tissue reaction. No evidence of drainable abscess. IMPRESSION: 1. Left hand cellulitis. 2. Third metacarpophalangeal joint degenerative joint disease with acute flare, moderate. 3. First carpometacarpal joint degenerative joint disease, severe, chronic. 4. Left hand pain secondary to above. Nonoperative management at this time. No local abscess noted. No evidence of tenosynovitis. RECOMMENDATIONS: Nonoperative management with IV antibiotics. Will follow with you with reassessment in the a.m. Limited use of left upper extremity as this causes worsening exacerbation of the left hand pain and discomfort. Thank you for the opportunity to consult in the care of this patient.
[2019-01-27] MEDS: LEVOTHYROXINE SODIUM 75 MCG TABLET PO SCH (06:12)
[2019-01-27] MEDS: AMIODARONE 200 MG TAB PO SCH (08:11)
[2019-01-27] MEDS: CHOLECALCIFEROL 1,000 UNITS TAB PO SCH (08:12)
[2019-01-27] MEDS: DOCUSATE SODIUM/SENNA 50/8.6MG TAB PO SCH ×2 (08:12→21:25)
[2019-01-27] MEDS: ASPIRIN 81 MG ECTAB PO SCH (08:12)
[2019-01-27] MEDS: GABAPENTIN 100 MG CAP PO SCH ×3 (08:13→21:23)
[2019-01-27] MEDS: CARVEDILOL 6.25 MG TAB PO SCH ×2 (08:13→21:22)
[2019-01-27] MEDS: FERROUS SULFATE 325 MG TAB PO SCH ×2 (08:13→16:48)
[2019-01-27] MEDS: APIXABAN 5 MG TABLET PO SCH ×2 (08:13→21:23)
[2019-01-27] MEDS: ISOSORBIDE MONO EXTENDED REL 30 MG TABCR PO SCH (08:13)
[2019-01-27] MEDS: INSULIN ASPART 100 UNITS/ML 3 ML PEN SC SCH ×4 (08:20→21:17)
[2019-01-27] MEDS: INSULIN GLARGINE SOLOSTAR 100 UNITS/ML 3 ML PEN SC SCH ×2 (08:22→21:18)
--- NOTE | 2019-01-27 08:54 | Orthopedic Progress Note ---
Date of Service January 27, 2019 Assessment & Plan (1) Swelling of joint of left hand: Left hand cellulitis, improving on IV antibiotics. Recommend non surgical treatment at this point, on Zosyn and Daptomycin. use of hand as tolerated Supportive care Antiinflammatories if tolerated and approved by Medicine S[facility]. As per ID As per medicine Thank you for the kind consultation. Altaf Saldaña DO Subjective Evaluation left hand cellulitis, patient states it is getting better, pain is minimal. Less pain with motion of the fingers. Physical Exam Physical Exam: Left hand minimal erythema, mild swelling, able to move fingers. Erythema diminished. 3rd MCPJ less irritable. Skin is intact. A&Ox3. Results & Data Vital Signs (Past 12 Hours) Vital Signs Temp Pulse Pulse Resp BP Pulse Ox 01/27/19 07:53 37.1 C 68 20 135/69 94 01/27/19 04:15 37.3 C 67 20 143/70 H 91 01/26/19 22:23 36.7 C 79 20 159/48 H 92 01/26/19 22:20 61
--- NOTE | 2019-01-27 11:21 | Hospitalist Progress Note ---
Date of Service January 27, 2019 Assessment & Plan (1) Bilateral lower leg cellulitis: (2) Venous stasis dermatitis of both lower extremities: afebrile no leukocytosis wound culture: Coag negative staph blood cultures: No growth after 24 hours, continue to follow-up on Dapto and Zosyn ID consulted (3) Swelling of joint of left hand: L dorsum of hand MTP region 24 with edema, erythema. Good active and passive range of motion. No pain to palpation. Possible cellulitis versus arthropathy versus trauma X-ray negative for fracture Ortho consulted MRI ordered: No abscess noted Secondary to cellulitis No surgical intervention at this time Continue above antibiotics Continue to monitor (4) CKD (chronic kidney disease), stage IV: Acute on chronic CKD stage IV Baseline creatinine 1.61.8 BUN/creatinine 64 and 2.30 on admission Possibly in setting of Bactrim use x1 month She did receive IVF while in ED HOLD Lasix crea now 1.9 monitor Check PRP, if creatinine back to baseline resume Lasix (5) Coronary artery disease: Patient denies chest pain or shortness of breath Continue ASA, Coreg, Imdur Hold statin secondary to initiating daptomycin (6) CHF (congestive heart failure): Patient appears euvolemic on exam, weight stable at 104.3 kg Patient does have chronic lower extremity venous stasis ulceration and edema Continue Coreg, Imdur, digoxin Holding Lasix and KCl for now given elevation in renal function--> will check creatinine level if come back to baseline we will resume Lasix last echo 08/2018 revealed EF 55 to 6% with grade 2 diastolic (7) Atrial fibrillation: Rate and rhythm controlled on amiodarone, digoxin, Coreg Anticoagulated with Eliquis (8) HTN (hypertension): Blood pressure controlled on carvedilol, Imdur, Lasix Holding Lasix and KCl (9) DM type 2 (diabetes mellitus, type 2): A1C 08/31/18 6.7 mostly well controlled Pt on high dose 70/30 insulin consult glycemic pharmacist for assistance given concurrent antibiotic and presumed infection a1c 6.3 (10) Anemia: H/H stable at 10.3 and 34.3 no signs or symptoms of bleeding Monitor CBC (11) Mild intellectual disability: Patient pleasant but tearful, mood stable Monitor (12) DVT prophylaxis: Continue Eliquis Disposition: To be determined Follow-up: PCP Dr. Lola Jean upon discharge case discussed with patient in detail all questions answered She is agreeable and comfortable with the plan of care Subjective Follow-up for left hand hand and bilateral lower extremity cellulitis Seen sitting up in bedside chair, sleeping but easily awakened Patient is comfortable, oriented x3 Denies pain today, left hand improving Denies fevers or chills, nausea, abdominal pain No shortness of breath, chest pain, palpitations, dizziness No other symptoms Review of Systems Review of Systems: All systems reviewed & are unremarkable except as noted in HPI & below Physical Exam Physical Exam: General- oriented x 3, not in distress, speaks in sentences with no effort or accessory muscle use Eyes- anicteric Neck- no JVD Lungs- clear breath sounds bilaterally Heart- normal rate, regular rhythm; no murmurs Abdomen- normal bowel sounds, nondistended, soft, nontender Extremities- Left hand-less edema, less erythema, improve range of motion of the fingers Bilateral lower extremity-dressing in place, still with surrounding erythema/mild warmth/no tenderness Positive grade 1 edema Neuro- alert, oriented x 3; no gross focal neurologic deficits Skin- warm & dry Results & Data Vital Signs (Past 12 Hours) Vital Signs Temp Pulse Pulse Resp BP Pulse Ox 01/27/19 11:12 36.4 C L 59 L 20 109/64 90 01/27/19 08:00 65 01/27/19 07:53 37.1 C 68 20 135/69 94 01/27/19 04:15 37.3 C 67 20 143/70 H 91 Laboratory Results Laboratory Results - last 24 hr 01/26/19 01/26/19 01/26/19 11:28 16:08 20:15 POC Glucose 229 H 150 H 151 H 01/27/19 07:26 POC Glucose 129 H (1) Coronary artery disease Coronary Disease-Associated Artery/Lesion type: [place] artery [place] vs. transplanted heart: [place] heart Associated angina: without angina Qualified Code(s): I25.10 - Atherosclerotic heart disease of [place] coronary artery without angina pectoris (2) Atrial fibrillation Atrial fibrillation type: paroxysmal Qualified Code(s): I48.0 - Paroxysmal atrial fibrillation (3) HTN (hypertension) Hypertension type: essential hypertension Qualified Code(s): I10 - Essential (primary) hypertension (4) DM type 2 (diabetes mellitus, type 2) Diabetes mellitus terminal clerk insulin use: with retirement use Diabetes mellitus complication status: with circulatory complication Diabetes mellitus complication detail: with other circulatory complications Qualified Code(s): E11.59 - Type 2 diabetes mellitus with other circulatory complications; Z79.4 - alf (current) use of insulin (5) Anemia Anemia type: due to chronic kidney disease Chronic kidney disease stage: stage 4 (severe) Qualified Code(s): N18.4 - Chronic kidney disease, stage 4 (severe); D63.1 - Anemia in chronic kidney disease
[2019-01-27 12:23] LABS: BUN Creatinine Ratio 21.3 (10-20); Calcium 8.9 mg/dl (8.5-10.1); Creatinine Clr Calc Pharmacy 31.2 ml/min; Est GFR (African American) 29.4; Est GFR (Non-African American) 25.3
[2019-01-27] MEDS: DIGOXIN 0.125 MG TAB PO SCH (16:48)
[2019-01-27] MEDS ORDERED: DAPTOmycin 300 MG in SYRINGE 0 ML IV SCH (21:00)
[2019-01-27] MEDS: TRAZODONE HCL 50 MG TAB PO SCH (21:22)
[2019-01-28] MEDS: ACETAMINOPHEN 325 MG TAB PO PRN (01:21)
[2019-01-28] MEDS: PIPERACILLIN/TAZOBACTAM 4.5 GM in DEXTROSE 5% 100 ML IV SCH ×3 (01:56→17:58)
[2019-01-28] MEDS: LEVOTHYROXINE SODIUM 75 MCG TABLET PO SCH (06:19)
[2019-01-28 07:08] LABS: Creatinine Clr Calc Pharmacy 31.4 ml/min
[2019-01-28] MEDS: ASPIRIN 81 MG ECTAB PO SCH (08:04)
[2019-01-28] MEDS: DOCUSATE SODIUM/SENNA 50/8.6MG TAB PO SCH ×2 (08:04→20:32)
[2019-01-28] MEDS: AMIODARONE 200 MG TAB PO SCH (08:04)
[2019-01-28] MEDS: APIXABAN 5 MG TABLET PO SCH ×2 (08:04→20:30)
[2019-01-28] MEDS: GABAPENTIN 100 MG CAP PO SCH ×3 (08:05→20:30)
[2019-01-28] MEDS: FERROUS SULFATE 325 MG TAB PO SCH ×2 (08:05→17:25)
[2019-01-28] MEDS: CARVEDILOL 6.25 MG TAB PO SCH ×2 (08:06→20:33)
[2019-01-28] MEDS: ISOSORBIDE MONO EXTENDED REL 30 MG TABCR PO SCH (08:06)
[2019-01-28] MEDS: CHOLECALCIFEROL 1,000 UNITS TAB PO SCH (08:06)
[2019-01-28] MEDS: INSULIN GLARGINE SOLOSTAR 100 UNITS/ML 3 ML PEN SC SCH ×2 (08:07→20:31)
[2019-01-28] MEDS: INSULIN ASPART 100 UNITS/ML 3 ML PEN SC SCH ×4 (08:09→20:32)
--- NOTE | 2019-01-28 09:04 | Orthopedic Progress Note ---
Date of Service January 28, 2019 Assessment & Plan (1) Swelling of joint of left hand: Left hand cellulitis, improving on IV antibiotics. Recommend non surgical treatment at this point, on Zosyn and Daptomycin. use of hand as tolerated Hand MRI neg for abscess/ fluid collection. Supportive care Antiinflammatories if tolerated and approved by Medicine Svc. As per ID As per medicine Thank you for the kind consultation. Altaf Saldaña DO Subjective Evaluation left hand cellulitis, patient states it is getting better, pain is minimal. Less pain with motion of the fingers. Physical Exam Physical Exam: Left hand, only minimal erythema dorsum hand, pain free ROM of fingers and non tender. Mild swelling. Results & Data Vital Signs (Past 12 Hours) Vital Signs Temp Pulse Pulse Resp BP Pulse Ox 01/28/19 07:45 36.6 C 64 18 116/51 L 91 01/28/19 03:59 36.9 C 62 18 115/71 90 01/27/19 23:00 36.8 C 71 20 159/78 H 92 01/27/19 22:24 65 01/27/19 21:20 65 143/72 H
--- NOTE | 2019-01-28 16:02 | Hospitalist Progress Note ---
Date of Service January 28, 2019 Assessment & Plan (1) Bilateral lower leg cellulitis: (2) Venous stasis dermatitis of both lower extremities: afebrile no leukocytosis wound culture: Coag negative staph blood cultures: No growth after 48 hours, continue to follow-up on Dapto and Zosyn cellulitis improving ID consulted, awaiting further recommendations re: antibiotic (3) Swelling of joint of left hand: L dorsum of hand MTP region 24 with edema, erythema. Good active and passive range of motion. No pain to palpation. Possible cellulitis versus arthropathy versus trauma X-ray negative for fracture Ortho consulted MRI ordered: No abscess noted Secondary to cellulitis No surgical intervention at this time Continue above antibiotics Continue to monitor (4) CKD (chronic kidney disease), stage IV: Acute on chronic CKD stage IV Baseline creatinine 1.61.8 BUN/creatinine 64 and 2.30 on admission Possibly in setting of Bactrim use x1 month She did receive IVF while in ED monitor resume Lasix PO (5) Coronary artery disease: Patient denies chest pain or shortness of breath Continue ASA, Coreg, Imdur Hold statin secondary to initiating daptomycin (6) CHF (congestive heart failure): Patient appears euvolemic on exam, weight stable at 104.3 kg Patient does have chronic lower extremity venous stasis ulceration and edema Continue Coreg, Imdur, digoxin last echo 08/2018 revealed EF 55 to 6% with grade 2 diastolic resume Lasix (7) Atrial fibrillation: Rate and rhythm controlled on amiodarone, digoxin, Coreg Anticoagulated with Eliquis (8) HTN (hypertension): Blood pressure controlled on carvedilol, Imdur, Lasix (9) DM type 2 (diabetes mellitus, type 2): A1C 08/31/18 6.7 mostly well controlled Pt on high dose 70/30 insulin consult glycemic pharmacist a1c 6.3 (10) Anemia: H/H stable at 10.3 and 34.3 no signs or symptoms of bleeding Monitor CBC (11) Mild intellectual disability: Patient pleasant but tearful, mood stable Monitor (12) DVT prophylaxis: Continue Eliquis Disposition: To be determined Follow-up: PCP Dr. Lola Jean upon discharge case discussed with patient in detail all questions answered She is agreeable and comfortable with the plan of care Subjective ff up for left hand cellulitis and lower leg cellulitis seen sitting up in chair, comfortable reports she continues to feel improved no pain on the left hand, minimal on the left leg no nausea/vomiting, chills, chest pain, dyspnea no other symptoms Review of Systems Review of Systems: All systems reviewed & are unremarkable except as noted in HPI & below Physical Exam Physical Exam: General- oriented x 2, not in distress, speaks in sentences with no effort or accessory muscle use Eyes- anicteric Neck- no JVD Lungs- clear breath sounds bilaterally Heart- normal rate, regular rhythm; no murmurs Abdomen- normal bowel sounds, nondistended, soft, nontender Extremities- left hand- no edema, mild erythema only, no tenderness, full ROMs lower ext- dressing in place- less erythema, no warmth/tenderness grade 1 edema Neuro- alert, oriented x 2; no gross focal neurologic deficits Skin- warm & dry Results & Data Vital Signs (Past 12 Hours) Vital Signs Temp Pulse Pulse Resp BP Pulse Ox 01/28/19 15:08 36.4 C L 69 20 126/69 90 01/28/19 11:30 36.8 C 61 20 114/52 L 97 01/28/19 08:00 62 01/28/19 07:45 36.6 C 64 18 116/51 L 91 01/28/19 03:59 36.9 C 62 18 115/71 90 Laboratory Results Laboratory Results - last 24 hr 01/27/19 01/27/19 01/28/19 16:22 20:05 06:26 Creatinine 1.92 H Est Cr Clr Drug Dosing 31.4 Est GFR ( Amer) 29.0 Est GFR (Non-Af Amer) 25.0 POC Glucose 160 H 158 H 01/28/19 01/28/19 07:32 11:30 Creatinine Est Cr Clr Drug Dosing Est GFR ( Amer) Est GFR (Non-Af Amer) POC Glucose 142 H 174 H (1) Coronary artery disease Coronary Disease-Associated Artery/Lesion type: [place] artery [place] vs. transplanted heart: [place] heart Associated angina: without angina Qualified Code(s): I25.10 - Atherosclerotic heart disease of [place] coronary artery without angina pectoris (2) Atrial fibrillation Atrial fibrillation type: paroxysmal Qualified Code(s): I48.0 - Paroxysmal atrial fibrillation (3) HTN (hypertension) Hypertension type: essential hypertension Qualified Code(s): I10 - Essential (primary) hypertension (4) DM type 2 (diabetes mellitus, type 2) Diabetes mellitus [facility] insulin use: with [facility] use Diabetes mellitus complication status: with circulatory complication Diabetes mellitus complication detail: with other circulatory complications Qualified Code(s): E11.59 - Type 2 diabetes mellitus with other circulatory complications; Z79.4 - intermediate (current) use of insulin (5) Anemia Anemia type: due to chronic kidney disease Chronic kidney disease stage: stage 4 (severe) Qualified Code(s): N18.4 - Chronic kidney disease, stage 4 (severe); D63.1 - Anemia in chronic kidney disease
[2019-01-28] MEDS: FUROSEMIDE 40 MG TAB PO SCH (17:24)
[2019-01-28] MEDS: TRAZODONE HCL 50 MG TAB PO SCH (20:30)
[2019-01-28] MEDS: DAPTOmycin 300 MG in SYRINGE 0 ML IV SCH (20:39)
[2019-01-29] MEDS: PIPERACILLIN/TAZOBACTAM 4.5 GM in DEXTROSE 5% 100 ML IV SCH ×3 (01:59→18:48)
[2019-01-29] MEDS: LEVOTHYROXINE SODIUM 75 MCG TABLET PO SCH (06:19)
[2019-01-29] MEDS: GABAPENTIN 100 MG CAP PO SCH ×3 (07:37→20:30)
[2019-01-29] MEDS: DOCUSATE SODIUM/SENNA 50/8.6MG TAB PO SCH ×2 (07:37→20:30)
[2019-01-29] MEDS: ISOSORBIDE MONO EXTENDED REL 30 MG TABCR PO SCH (07:37)
[2019-01-29] MEDS: FUROSEMIDE 40 MG TAB PO SCH (07:37)
[2019-01-29] MEDS: CHOLECALCIFEROL 1,000 UNITS TAB PO SCH (07:37)
[2019-01-29] MEDS: CARVEDILOL 6.25 MG TAB PO SCH ×2 (07:38→20:26)
[2019-01-29] MEDS: ASPIRIN 81 MG ECTAB PO SCH (07:38)
[2019-01-29] MEDS: AMIODARONE 200 MG TAB PO SCH (07:38)
[2019-01-29] MEDS: FERROUS SULFATE 325 MG TAB PO SCH ×2 (07:38→16:43)
[2019-01-29] MEDS: APIXABAN 5 MG TABLET PO SCH ×2 (07:38→20:26)
[2019-01-29] MEDS: INSULIN GLARGINE SOLOSTAR 100 UNITS/ML 3 ML PEN SC SCH ×2 (08:30→20:27)
[2019-01-29] MEDS: INSULIN ASPART 100 UNITS/ML 3 ML PEN SC SCH ×4 (08:30→20:27)
--- NOTE | 2019-01-29 13:13 | Hospitalist Progress Note ---
Date of Service January 29, 2019 Assessment & Plan (1) Bilateral lower leg cellulitis: (2) Venous stasis dermatitis of both lower extremities: wound culture: Coag negative staph blood cultures: No growth after 48 hours, continue to follow-up on Dapto and Zosyn continues to improve ID consulted, awaiting further recommendations re: antibiotic (3) Swelling of joint of left hand: L dorsum of hand MTP region 24 with edema, erythema. Good active and passive range of motion. No pain to palpation. Possible cellulitis versus arthropathy versus trauma X-ray negative for fracture Ortho consulted MRI ordered: No abscess noted Secondary to cellulitis No surgical intervention at this time Continue above antibiotics Continue to monitor (4) CKD (chronic kidney disease), stage IV: Acute on chronic CKD stage IV Baseline creatinine 1.61.8 BUN/creatinine 64 and 2.30 on admission Possibly in setting of Bactrim use x1 month She did receive IVF while in ED monitor resumed Lasix PO (5) Coronary artery disease: Patient denies chest pain or shortness of breath Continue ASA, Coreg, Imdur Hold statin secondary to initiating daptomycin (6) CHF (congestive heart failure): Patient appears euvolemic on exam, weight stable at 104.3 kg Patient does have chronic lower extremity venous stasis ulceration and edema Continue Coreg, Imdur, digoxin last echo 08/2018 revealed EF 55 to 6% with grade 2 diastolic lasix resumed (7) Atrial fibrillation: Rate and rhythm controlled on amiodarone, digoxin, Coreg Anticoagulated with Eliquis (8) HTN (hypertension): Blood pressure controlled on carvedilol, Imdur, Lasix (9) DM type 2 (diabetes mellitus, type 2): A1C 08/31/18 6.7 mostly well controlled Pt on high dose 70/30 insulin consult glycemic pharmacist a1c 6.3 (10) Anemia: H/H stable at 10.3 and 34.3 no signs or symptoms of bleeding Monitor CBC (11) Mild intellectual disability: Patient pleasant but tearful, mood stable Monitor (12) DVT prophylaxis: Continue Eliquis Disposition: To be determined Follow-up: PCP Dr. Lola Jean upon discharge case discussed with patient in detail all questions answered She is agreeable and comfortable with the plan of care Subjective delayed entry date of service as noted above seen resting in chair comfortable denies pain on her L hand or legs denies any new complaints no other symptoms Review of Systems Review of Systems: All systems reviewed & are unremarkable except as noted in HPI & below Physical Exam Physical Exam: General- oriented x 2, not in distress, speaks in sentences with no effort or accessory muscle use Eyes- anicteric Neck- no JVD Lungs- clear BS, no rales BL Heart- normal rate, regular rhythm; no murmurs Abdomen- normal bowel sounds, nondistended, soft, nontender Extremities- Left hand- faint erythema, no edema, full ROM Lower ext- grade 1 edema,venous stasis changes, mild warmth, no tenderness wounds healing well Neuro- alert, oriented x 3; no gross focal neurologic deficits Skin- warm & dry Results & Data Vital Signs (Past 12 Hours) Vital Signs Temp Pulse Resp BP BP Pulse Ox 01/29/19 11:40 37 C 65 16 112/64 94 01/29/19 07:00 37.1 C 69 18 129/70 94 01/29/19 03:27 36.9 C 63 20 115/66 97 Laboratory Results noted and reviewed (1) DM type 2 (diabetes mellitus, type 2) Diabetes mellitus complication detail: with other circulatory complications Diabetes mellitus complication status: with circulatory complication Diabetes mellitus [facility] insulin use: with terminal operator use Qualified Code(s): E11.59 - Type 2 diabetes mellitus with other circulatory complications; Z79.4 - skilled nursing (current) use of insulin (2) Coronary artery disease Associated angina: without angina Coronary Disease-Associated Artery/Lesion type: [place] artery [place] vs. transplanted heart: [place] heart Qualified Code(s): I25.10 - Atherosclerotic heart disease of [place] coronary artery without angina pectoris (3) Anemia Anemia type: due to chronic kidney disease Chronic kidney disease stage: stage 4 (severe) Qualified Code(s): N18.4 - Chronic kidney disease, stage 4 (severe); D63.1 - Anemia in chronic kidney disease (4) Atrial fibrillation Atrial fibrillation type: paroxysmal Qualified Code(s): I48.0 - Paroxysmal atrial fibrillation (5) HTN (hypertension) Hypertension type: essential hypertension Qualified Code(s): I10 - Essential (primary) hypertension
[2019-01-29] MEDS: DIGOXIN 0.125 MG TAB PO SCH (16:43)
[2019-01-29] MEDS: DAPTOmycin 300 MG in SYRINGE 0 ML IV SCH (20:25)
[2019-01-29] MEDS: TRAZODONE HCL 50 MG TAB PO SCH (20:26)
--- NOTE | 2019-01-29 21:50 | Infectious Disease Progress Nt ---
Date of Service January 29, 2019 Assessment & Plan (1) Bilateral lower leg cellulitis: Patient with bilateral lower extremity cellulitis in the setting stasis disease with ulceration not clear what process of left hand is, if cellulitis will be well covered by treatment for lower extremity cellulitis. Patient appears to be responding to IV antibiotics, hopefully can transition to oral antibiotics in the next day or so. Will follow. (2) Venous stasis dermatitis of both lower extremities: (3) Swelling of joint of left hand: Subjective Evaluation left hand cellulitis, patient states it is getting better, pain is minimal. Less pain with motion of the fingers. Physical Exam Constitutional: WD/WN, vitals as above comfortable; no acute distress Eyes: PERRL, conjunctivae normal, anicteric sclerae ENMT: external ear and nose normal, oropharynx normal Neck: trachea midline, no thyromegaly neck nontender Respiratory: normal respiratory effort, lungs clear to auscultation normal percussion; does not use accessory muscles Cardiovascular: Rate/Rhythm: regular rate and regular rhythm Heart Sounds: normal S1 and normal S2; no gallop, no murmur and no cardiac rub Vessels: normal peripheral pulses; no JVD Gastrointestinal (Abdomen): normal bowel sounds, soft, nontender, no hepatosplenomegaly Musculoskeletal: no cyanosis or clubbing, extremities motor strength 5/5 Spine: thoracic spine normal to inspection and lumbar spine normal to inspection; no cervical spinal tenderness Skin: no rashes, warm and dry normal turgor, + ulcer (Multiple venous stasi s ulcerations) and + erythema (Both legs from foot to knee, Dorsum of left hand) Neurologic: patellar DTR's 2+ bilat, sensation intact no focal motor deficits Psychiatric: A+Ox3, euthymic affect Orientation: cooperative Lymphatic: no cervical or axillary lymphadenopathy no inguinal lymphadenopathy Results & Data Vital Signs (Past 12 Hours) Vital Signs Temp Pulse Pulse Resp BP BP Pulse Ox 01/29/19 19:32 37.0 C 61 18 117/67 95 01/29/19 16:43 82 01/29/19 15:24 37.3 C 80 24 120/72 96 01/29/19 11:40 37 C 65 16 112/64 94 Laboratory Results Laboratory Results - last 48 hr 01/28/19 01/28/19 01/28/19 06:26 07:32 11:30 Creatinine 1.92 H Est Cr Clr Drug Dosing 31.4 Est GFR ( Amer) 29.0 Est GFR (Non-Af Amer) 25.0 POC Glucose 142 H 174 H 01/28/19 01/28/19 01/29/19 16:22 19:58 07:27 Creatinine Est Cr Clr Drug Dosing Est GFR ( Amer) Est GFR (Non-Af Amer) POC Glucose 186 H 143 H 121 H 01/29/19 01/29/19 01/29/19 11:27 16:46 20:22 Creatinine Est Cr Clr Drug Dosing Est GFR ( Amer) Est GFR (Non-Af Amer) POC Glucose 192 H 133 H 179 H Diagnostic Findings Microbiology 01/25/19 15:58 Blood Aerobic Blood Culture - Preliminary No growth in Aerobic bottle after 48 hours. 01/25/19 15:58 Blood Anaerobic Blood Culture - Preliminary No growth in Anaerobic bottle after 48 hours. 01/25/19 15:44 Blood Aerobic Blood Culture - Preliminary No growth in Aerobic bottle after 48 hours. 01/25/19 15:44 Blood Anaerobic Blood Culture - Preliminary No growth in Anaerobic bottle after 48 hours. MR hand LT wo con HISTORY: 73 years-old Female hand swelling, cellulitis acute left hand pain and swelling with reported cellulitis COMPARISON: Left hand radiographs 01/25/2019 TECHNIQUE: Multiplanar multisequence MRI of the left hand was obtained without the use of IV contrast. FINDINGS: There is mild to moderate subcutaneous and deep tissue edema about the hand, most pronounced dorsally. No drainable fluid collection or focal mass identified. Edema extends available into the digits, most pronounced at the level of the proximal phalanges. The imaged flexor and extensor tendons appear unremarkable. No evidence of significant tendinosis or tenosynovitis. The flexor retinaculum and median nerve appear unremarkable. The visualized ulnar nerve is also within normal limits. Severe osteoarthritis about the first carpal metacarpal joint with subcortical cystic change and trace joint effusion with prominent marginal osteophytic spurring and high-grade chondromalacia. There is mild osteoarthritis noted about the radiocarpal, metacarpophalangeal and interphalangeal joints. There is mild to moderate osteoarthritis about the third metacarpophalangeal joint with mild likely reactive bone marrow edema and chondral thinning. No acute fracture, dislocation, significant bone marrow edema or bony erosive change to suggest osteomyelitis. IMPRESSION: 1. Mild to moderate subcutaneous and deep tissue edema about the hand which is most pronounced dorsally compatible with patient's clinical history of cellulitis. No drainable fluid collection or focal soft tissue mass identified. 2. No acute fracture, dislocation, bony erosive change or significant marrow edema. 3. Degenerative changes as above with severe first carpometacarpal osteoarthritis. The above report was generated using voice recognition software. It may contain grammatical, syntax or spelling errors. Electronically signed by: Larry Hyde M.D. 01/26/2019 2:41 PM Dictated: 01/26/19 1410 PG Care Time/CCT Total # of Minutes Spent Total Time Spent with Patient: Total time spent is greater than 50% in coordination of care (as documented) at patient's floor/unit and/or counseling patient:
[2019-01-30] MEDS: PIPERACILLIN/TAZOBACTAM 4.5 GM in DEXTROSE 5% 100 ML IV SCH ×2 (01:53→09:53)
[2019-01-30] MEDS: LEVOTHYROXINE SODIUM 75 MCG TABLET PO SCH (06:38)
[2019-01-30 07:11] LABS: Creatinine Clr Calc Pharmacy 33.4 ml/min; Est GFR (African American) 31.6; Est GFR (Non-African American) 27.2
[2019-01-30] MEDS: DOCUSATE SODIUM/SENNA 50/8.6MG TAB PO SCH (07:54)
[2019-01-30] MEDS: CHOLECALCIFEROL 1,000 UNITS TAB PO SCH (07:54)
[2019-01-30] MEDS: AMIODARONE 200 MG TAB PO SCH (07:54)
[2019-01-30] MEDS: FUROSEMIDE 40 MG TAB PO SCH (07:54)
[2019-01-30] MEDS: ISOSORBIDE MONO EXTENDED REL 30 MG TABCR PO SCH (07:54)
[2019-01-30] MEDS: GABAPENTIN 100 MG CAP PO SCH (07:55)
[2019-01-30] MEDS: FERROUS SULFATE 325 MG TAB PO SCH (07:55)
[2019-01-30] MEDS: ASPIRIN 81 MG ECTAB PO SCH (07:55)
[2019-01-30] MEDS: APIXABAN 5 MG TABLET PO SCH (07:55)
[2019-01-30] MEDS: CARVEDILOL 6.25 MG TAB PO SCH (07:55)
[2019-01-30] MEDS: INSULIN GLARGINE SOLOSTAR 100 UNITS/ML 3 ML PEN SC SCH (08:00)
[2019-01-30] MEDS: INSULIN ASPART 100 UNITS/ML 3 ML PEN SC SCH ×2 (08:01→12:16)
--- NOTE | 2019-01-30 10:04 | Pharmacy Report ---
Pharmacy Glycemic Short Note 2 - Date of Service January 30, 2019 - Glycemic Short BSG Results (Last 24 hours): 01/29/19 01/29/19 01/29/19 11:27 16:46 20:22 POC Glucose 192 H 133 H 179 H 01/30/19 07:23 POC Glucose 138 H ASSESSMENT: 01/30: * Patient has been receiving 60-70 units of insulin over the last couple of days, BSGs continuing to improve * Received total of 60 units of insulin yesterday, of which 30 units were basal insulin * Fasting BSG w/in range at 138 mg/dL - will continue same basal * No changes to CF/CR - continue same PLAN FOR INPATIENT GLYCEMIC CONTROL: * Hold outpatient oral diabetes medications * Basal insulin * Lantus 15 units SQ BID * Bolus insulin * NovoLog per scale ACHS or Q6hrs while NPO * Goal Range: Low 120 mg/dL - High 160 mg/dL * Correction Factor: 15 mg/dL/unit * Nutritional / Prandial insulin per carb ratio of 1 unit per 4 grams CHO consumed
--- NOTE | 2019-01-30 11:47 | Hospitalist Progress Note ---
Date of Service January 30, 2019 Assessment & Plan (1) Bilateral lower leg cellulitis: (2) Venous stasis dermatitis of both lower extremities: remained afebrile no leukocytosis wound culture: Coag negative staph blood cultures: No growth after 48 hours given Dapto and Zosyn left hand back to normal, lower leg cellulitis improved ID consulted, Echo Krishna, recommendation: Augmentin and Doxcycline BID x at least 2 weeks ff up with [facility] in 1 week Repeat BMP as an outpatient to make sure kidney function is stable, renally dose Augmentin if creatinine clearance less than 30 (3) Swelling of joint of left hand: L dorsum of hand MTP region 24 with edema, erythema. Good active and passive range of motion. No pain to palpation. Possible cellulitis versus arthropathy versus trauma X-ray negative for fracture Ortho consulted MRI ordered: No abscess noted Secondary to cellulitis No surgical intervention at this time Continue above antibiotics Continue to monitor (4) CKD (chronic kidney disease), stage IV: Acute on chronic CKD stage IV Baseline creatinine 1.61.8 BUN/creatinine 64 and 2.30 on admission Possibly in setting of Bactrim use x1 month She did receive IVF while in ED monitor resumed Lasix PO 40mg in AM, hold 20mg in PM--> reevaluate as outpatient on ff up with PCP (5) Coronary artery disease: Patient denies chest pain or shortness of breath Continue ASA, Coreg, Imdur Held statin secondary to initiating daptomycin (6) CHF (congestive heart failure): Patient appears euvolemic on exam, weight stable at 104.3 kg Patient does have chronic lower extremity venous stasis ulceration and edema Continue Coreg, Imdur, digoxin last echo 08/2018 revealed EF 55 to 6% with grade 2 diastolic resume Lasix 40 mg in the morning Holding Lasix 20 mg in the afternoon due to recent acute kidney injury, and also euvolemic on discharge day Monitor volume status, renal function, resume additional Lasix 20 mg in the afternoon if needed (7) Atrial fibrillation: Rate and rhythm controlled on amiodarone, digoxin, Coreg Anticoagulated with Eliquis (8) HTN (hypertension): Blood pressure controlled on carvedilol, Imdur, Lasix (9) DM type 2 (diabetes mellitus, type 2): A1C 08/31/18 6.7 mostly well controlled Pt on high dose 70/30 insulin consulted glycemic pharmacist a1c 6.3 (10) Anemia: H/H stable at 10.3 and 34.3 no signs or symptoms of bleeding Monitor CBC (11) Mild intellectual disability: Patient pleasant but tearful, mood stable Monitor (12) DVT prophylaxis: Continue Eliquis Disposition: To be determined Follow-up: ff up with PCP as outlined in DC summary ff up with [facility] in 1 week Subjective delayed entry date of service as noted above seen with personal fci director at the bedside resting in chair, comfortable states she feels fine overall denies pain, shortness of breath no other symptoms states she is ready and would like to be discharge director agreeable /comfortable with discharge Review of Systems Review of Systems: All systems reviewed & are unremarkable except as noted in HPI & below Physical Exam Physical Exam: General- oriented x 2, not in distress, speaks in sentences with no effort or accessory muscle use Eyes- anicteric Neck- no JVD Lungs- clear breath sounds bilaterally Heart- normal rate, regular rhythm; no murmurs Abdomen- normal bowel sounds, nondistended, soft, nontender Extremities-left hand: essentially normal left lower ext: mild lower leg edema, venous stasis changes, no warmth, no tenderness wounds healing well Neuro- alert, oriented x 2; no gross focal neurologic deficits Skin- warm & dry Results & Data Vital Signs (Past 12 Hours) Vital Signs Temp Pulse Resp BP BP Pulse Ox 01/30/19 11:40 36.4 C L 60 16 106/55 L 95 01/30/19 07:00 36.5 C 60 20 132/66 92 01/30/19 03:20 36.9 C 60 18 116/59 L 93 Laboratory Results Laboratory Results - last 24 hr 01/30/19 11:40 POC Glucose 166 H (1) DM type 2 (diabetes mellitus, type 2) Diabetes mellitus complication detail: with other circulatory complications Diabetes mellitus complication status: with circulatory complication Diabetes mellitus 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 transplanted heart: sioux heart Qualified Code(s): I25.10 - Atherosclerotic heart disease of [place] coronary artery without angina pectoris (3) Anemia Anemia type: due to chronic kidney disease Chronic kidney disease stage: stage 4 (severe) Qualified Code(s): N18.4 - Chronic kidney disease, stage 4 (severe); D63.1 - Anemia in chronic kidney disease (4) Atrial fibrillation Atrial fibrillation type: paroxysmal Qualified Code(s): I48.0 - Paroxysmal at rial fibrillation (5) HTN (hypertension) Hypertension type: essential hypertension Qualified Code(s): I10 - Essential (primary) hypertension
--- NOTE | 2019-01-30 11:53 | Infectious Disease Progress Nt ---
Date of Service January 30, 2019 Assessment & Plan (1) Bilateral lower leg cellulitis: Patient with bilateral lower extremity cellulitis in the setting of venous stasis disease with ulceration as well as cellulitis left hand. Has improved, to transition to oral Rx with Augmentin and doxycycline for [address] Florez. (2) Venous stasis dermatitis of both lower extremities: (3) Swelling of joint of left hand: Subjective Evaluation left hand cellulitis, patient states it is getting better, pain is minimal. Less pain with motion of the fingers. Leg pain significantly improved, erythema lessening, ulceration smaller. Review of Systems Review of Systems: All systems reviewed & are unremarkable except as noted in HPI & below Physical Exam Constitutional: WD/WN, vitals as above comfortable; no acute distress Eyes: PERRL, conjunctivae normal, anicteric sclerae ENMT: external ear and nose normal, oropharynx normal Neck: trachea midline, no thyromegaly neck nontender Respiratory: normal respiratory effort, lungs clear to auscultation normal percussion; does not use accessory muscles Cardiovascular: Rate/Rhythm: regular rate and regular rhythm Heart Sounds: normal S1 and normal S2; no gallop, no murmur and no cardiac rub Vessels: normal peripheral pulses; no JVD Gastrointestinal (Abdomen): normal bowel sounds, soft, nontender, no hepatosplenomegaly Musculoskeletal: no cyanosis or clubbing, extremities motor strength 5/5 Spine: thoracic spine normal to inspection and lumbar spine normal to inspection; no cervical spinal tenderness Skin: no rashes, warm and dry normal turgor, + ulcer (Multiple venous stasis ulcerations) and + erythema (Both legs from foot to knee, Dorsum of left hand) Neurologic: patellar DTR's 2+ bilat, sensation intact no focal motor deficits Psychiatric: A+Ox3, euthymic affect Orientation: cooperative Lymphatic: no cervical or axillary lymphadenopathy no inguinal lymphadenopathy Results & Data Vital Signs (Past 12 Hours) Vital Signs Temp Pulse Resp BP BP Pulse Ox 01/30/19 11:40 36.4 C L 60 16 106/55 L 95 01/30/19 07:00 36.5 C 60 20 132/66 92 01/30/19 03:20 36.9 C 60 18 116/59 L 93 PG Care Time/CCT Total # of Minutes Spent Total Time Spent with Patient: Total time spent is greater than 50% in coordination of care (as documented) at patient's floor/unit and/or counseling patient:
--- NOTE | 2019-01-31 11:51 | Discharge Summary ---
Date of Service January 31, 2019 Admission HPI Per Admitting Provider This is a 72-year-old white female who has a significant past medical history of mild intellectual disability, IDDM T2, CAD, combined systolic and diastolic CHF, PAF anticoagulated on Eliquis, cardiac pacemaker in situ, HTN, HLD, PVD, history of osteomyelitis s/p amputation toe of right foot, depression, morbid obesity who presents to [facility] ED secondary to referral by infectious disease physician Dr. Dodge due to worsening bilateral lower extremity cellulitis and left hand cellulitis. Caregiver from snf is at bedside. Patient was seen in wound clinic today and was noted to have increased erythema, warmth and drainage from chronic bilateral venous stasis ulcerations of her lower extremities. It was also noted that overnight she developed swelling and redness to the dorsal aspect of her left hand around MCP fingers 2-4. Patient is very upset and tearful and does not want to be hospitalized in fear that she will be here for, "a couple weeks." She elicits that her left hand became swollen and red last evening whenever she was watching TV and was worse this morning. She complains of pain 4/10. She has full range of motion of her left hand. Denies this happening in the past. Caregiver at bedside noted that she does occasionally get swelling to her fingers and hands do not resolve on own and not any treatment. Denies trauma. Patient denies any fever, chills, sweats, lightheadedness, dizziness, chest pain, shortness breath, palpitations, nausea, vomiting, diarrhea, change in her bowel or urinary habits. She states "I feel fine." Her appetite has been normal. She feels her legs are not more swollen than usual and denies any weight gain. Of significance patient has been recently treated with 4-week course of amoxicillin and Bactrim per Dr. Dodge. On 12/08 left lower extremity wound culture grew coag negative staph, regular 21 culture grew staph aureus, Enterobacter cloacae, enterococcus faecalis. Admission Exam Per Admitting Provider Gen: Morbidly obese F,sitting up in bed, NAD, tearful, answers questions appropriately, drowsy Head: Normocephalic, Atraumatic Eyes: Sclera normal, no conjunctival injection, PERRLA, EOMI ENT: Gross hearing intact, normal pharynx, mucous membranes dry, dentition absent Neck: supple, no adenopathy, No JVD, no bruit, Resp: Clear to auscultation b/l with decreased breath sounds bilaterally but decreased at bases, no wheeze, rales, rhonchi. 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 Left hand dorsum MTP 24 erythema, edema but with good active and passive range of motion. Skin: warm, moist, no rash, negative turgor, cap refill < 2sec Neuro: Alert and oriented x 3, speech normal, tearful mood/affect, cran nerve 2- 12 intact grossly Principal Diagnosis LEFT HAND AND BILATERAL LEG CELLULITIS Discharge Exam General- oriented x 2, not in distress, speaks in sentences with no effort or accessory muscle use Eyes- anicteric Neck- no JVD Lungs- clear breath sounds bilaterally Heart- normal rate, regular rhythm; no murmurs Abdomen- normal bowel sounds, nondistended, soft, nontender Extremities-left hand: essentially normal left lower ext: mild lower leg edema, venous stasis changes, no warmth, no tenderness wounds healing well Neuro- alert, oriented x 2; no gross focal neurologic deficits Skin- warm & dry Discharge Data Allergies Allergy/AdvReac Type Severity Reaction Status Date / Time No Known Allergies Allergy Verified 01/25/19 15:46 Consultations 01/25/19 16:56 ED Decision to Admit Stat 01/25/19 19:02 Consult Case Management - Discharge Planning Routine Consult Infectious Diseases Routine 01/26/19 08:07 Consult Wound Care Provider Routine 01/26/19 09:36 Consult Orthopedic Surgery Routine Ordered Studies 01/26/19 09:44 MR hand LT wo con Stat [place], [place] [phone] Magnetic Resonance Report Patient: ADENIKE COOLRADOAdmit Date: 01/26/19 MR#: [id number]: [address] Acct ID:[id number]: Date: 4City Zip: [place] [address] Age: 73Location: 2N Sex: F Room/Bed: N276-1 Att Phy: Avinash Mena, MDDiagnosis: b/l cellulitis, ? l hand cellulitis Jing Phy: Lola Jean, MDService Date: 01/26/19 Fam Phy: Interpreting Phy: Ritesh Hyde Admit Phy: Ankita Vallecillo, Ordering Phy: Avinash Mena MD cc: ~ MR hand LT wo con HISTORY: 73 years-old Female hand swelling, cellulitis acute left hand pain and swelling with reported cellulitis COMPARISON: Left hand radiographs 01/25/2019 TECHNIQUE: Multiplanar multisequence MRI of the left hand was obtained without the use of IV contrast. FINDINGS: There is mild to moderate subcutaneous and deep tissue edema about the hand, most pronounced dorsally. No drainable fluid collection or focal mass identified. Edema extends available into the digits, most pronounced at the level of the proximal phalanges. The imaged flexor and extensor tendons appear unremarkable. No evidence of significant tendinosis or tenosynovitis. The flexor retinaculum and median nerve appear unremarkable. The visualized ulnar nerve is also within normal limits. Severe osteoarthritis about the first carpal metacarpal joint with subcortical cystic change and trace joint effusion with prominent marginal osteophytic spurring and high-grade chondromalacia. There is mild osteoarthritis noted about the radiocarpal, metacarpophalangeal and interphalangeal joints. There is mild to moderate osteoarthritis about the third metacarpophalangeal joint with mild likely reactive bone marrow edema and chondral thinning. No acute fracture, dislocation, significant bone marrow edema or bony erosive change to suggest osteomyelitis. IMPRESSION: 1. Mild to moderate subcutaneous and deep tissue edema about the hand which is most pronounced dorsally compatible with patient's clinical history of cellulitis. No drainable fluid collection or focal soft tissue mass identified. 2. No acute fracture, dislocation, bony erosive change or significant marrow edema. 3. Degenerative changes as above with severe first carpometacarpal osteoarthritis. Hospital Course (1) Bilateral lower leg cellulitis: (2) Venous stasis dermatitis of both lower extremities: remained afebrile no leukocytosis wound culture: Coag negative staph blood cultures: No growth after 48 hours given Dapto and Zosyn IV during admission left hand back to normal, lower leg cellulitis improved ID consulted, Echo Krishna, recommendation: Augmentin and Doxcycline BID x at least 2 weeks ff up with W[facility] Care Center in 1 week Repeat BMP as an outpatient to make sure kidney function is stable, renally dose Augmentin if creatinine clearance less than 30 (3) Swelling of joint of left hand: L dorsum of hand MTP region 24 with edema, erythema. Good active and passive range of motion. No pain to palpation. Possible cellulitis versus arthropathy versus trauma X-ray negative for fracture Ortho consulted MRI ordered: No abscess noted Secondary to cellulitis No surgical intervention at this time Continue above antibiotics Continue to monitor (4) CKD (chronic kidney disease), stage IV: Acute on chronic CKD stage IV Baseline creatinine 1.61.8 BUN/creatinine 64 and 2.30 on admission Possibly in setting of Bactrim use x1 month She did receive IVF while in ED monitor resumed Lasix PO 40mg in AM, hold 20mg in PM--> reevaluate as outpatient on ff up with PCP (5) Coronary artery disease: Patient denies chest pain or shortness of breath Continue ASA, Coreg, Imdur Held statin secondary to initiating daptomycin (6) CHF (congestive heart failure): Patient appears euvolemic on exam, weight stable at 104.3 kg Patient does have chronic lower extremity venous stasis ulceration and edema Continue Coreg, Imdur, digoxin last echo 08/2018 revealed EF 55 to 6% with grade 2 diastolic lasix resumed (7) Atrial fibrillation: Rate and rhythm controlled on amiodarone, digoxin, Coreg Anticoagulated with Eliquis (8) HTN (hypertension): Blood pressure controlled on carvedilol, Imdur, Lasix (9) DM type 2 (diabetes mellitus, type 2): A1C 08/31/18 6.7 mostly well controlled Pt on high dose 70/30 insulin consulted glycemic pharmacist a1c 6.3 (10) Anemia: H/H stable at 10.3 and 34.3 no signs or symptoms of bleeding Monitor CBC (11) Mild intellectual disability: Patient pleasant but tearful, mood stable Monitor (12) DVT prophylaxis: Continue Eliquis Disposition: To be determined Follow-up: ff up with PCP as outlined in DC summary ff up with Wound Care Center in 1 week Total Time Total Time Spent Total Time Spent (In Minutes): 45 minutes Discharge Plan Discharge Items Patient Disposition: Personal Fci Reason For Visit: b/l cellulitis, ? l hand cellulitis Discharge Diagnosis: LEFT HAND CELLULITIS, BILATERAL LOWER LEG CELLULITIS Discharge Goals: Diagnostic testing and Therapeutic intervention Activity: Resume your previous activity Lifting: Wait until after follow-up appointment Lifting Comment: Avoid heavy exertion of the left hand Non-emergency contact: Primary Care Provider and Specialist Call non-emergency contact if: you have any medication questions, your symptoms worsen, your pain is not controlled, your pain is worsening, you have a fever, your wound has increased redness, your wound has increased drainage and your wound pain has increased Follow-up/Referrals: Chace Patricio MD [Physician] - 02/02/19 1:45 pm Diet: Carb Consistent or DM2 and Heart Healthy Addtl Provider Instructions: Antibiotic regimen: Augmentin 8 7 5 mg p.o. twice daily, doxycycline 100 mg p.o. twice daily x2 weeks. Take a probiotic daily. Always ensure adequate daily fluid intake. Wound care discharge instructions: To open area on both lower legs-wash legs, apply silver cell to open areas Cover with ABD and secure with Kerlix Change every other day and as needed Please call primary care physician or wound care center if with worsening of symptoms, including Worsening of hand or leg swelling, redness, tenderness, pain, fevers or chills, nausea vomiting, change with urination, weakness. Follow-up with Dr. Patricio, associate of Dr. Jean, at the [facility] on Saturday, February 02, 2019 at 1:45 PM Follow-up with wound care center within 1 week. Please call their clinic for an appointment. [phone] Prescriptions: New amoxicillin-pot clavulanate [Augmentin] 875-125 mg tablet 1 tab PO BID 14 Days Qty: 28 RF: 0 doxycycline hyclate 100 mg capsule 100 mg PO BID 14 Days Qty: 28 RF: 0 Lactobacillus acidoph-L.bulgar [Floranex] 1 million cell tablet 4 tab PO QID 21 Days Qty: 336 RF: 1 Continued amiodarone 200 mg tablet 200 mg PO QAM RF: 0 apixaban [Eliquis] 5 mg tablet 5 mg PO BID RF: 0 aspirin 81 mg tablet,chewable 81 mg PO QAM RF: 0 carvedilol [Coreg] 6.25 mg tablet 6.25 mg PO BID RF: 0 cholecalciferol (vitamin D3) 2,000 unit capsule 2,000 units PO QAM RF: 0 digoxin 125 mcg tablet 0.125 mg PO Q2D RF: 0 ferrous sulfate 325 mg (65 mg iron) tablet,delayed release (DR/EC) 325 mg PO BIDM RF: 0 furosemide 40 mg tablet 40 mg PO QAM RF: 0 gabapentin [Neurontin] 100 mg capsule 100 mg PO TID RF: 0 insulin asp prt-insulin aspart [Novolog Mix 70-30 U-100 Insuln] 100 unit/mL (70-30) solution 65 units SQ QDB RF: 0 insulin asp prt-insulin aspart [Novolog Mix 70-30 U-100 Insuln] 100 unit/mL (70-30) solution 56 units SQ QDD RF: 0 insulin aspart U-100 [Novolog Flexpen U-100 Insulin] 100 unit/mL insulin pen 4 units SQ QDL RF: 0 isosorbide mononitrate 30 mg tablet extended release 24 hr 30 mg PO QAM RF: 0 sennosides-docusate sodium 8.6-50 mg tablet 1 tab PO BID RF: 0 simvastatin [Zocor] 20 mg tablet 20 mg PO QPM RF: 0 trazodone 50 mg Tablet 50 mg PO HS RF: 0 potassium chloride 10 mEq Tablet Extended Release 10 meq PO QAM RF: 0 levothyroxine 75 mcg Tablet 75 mcg PO DAILYBB RF: 0 polyethylene glycol 3350 [Miralax] 17 gram Powder In Packet 17 g PO DAILY PRN (Reason: Constipation) RF: 0 Zeasorb AF 2 % Powder 1 applic TOPICAL DIRECTED RF: 0 acetaminophen [Tylenol Extra Strength] 500 mg Tablet 1,000 mg PO Q6H MDD 3 GRAMS/24 HOURS. PRN (Reason: Pain) RF: 0 magnesium hydroxide [Milk of Magnesia] 400 mg/5 mL Suspension 30 ml PO DAILY PRN (Reason: Constipation) RF: 0 acetaminophen [Tylenol] 325 mg Capsule 650 mg PO Q4 MDD 3 GRAMS/24 HOURS PRN (Reason: Pain) RF: 0 Discontinued amoxicillin 500 mg capsule 500 mg PO TID Qty: 90 RF: 1 furosemide 40 mg Tablet 20 mg PO .DAILY AT 1500 RF: 0 Stand-Alone Forms: [facility] Discharge Orders: Discharge Order (Routine); Ordered 01/30/19 Ordered By: Avinash Mena Admission Data Admit Date/Time: 01/26/19 07:36 Attending Provider: Avinash Mena Admit Provider: Ankita Vallecillo Primary Care Provider: Lola Jean Other Providers: Ankita Vallecillo ; Angela Valdovinos ; Shabbir Menon ; Mukesh Saldaña Service: Telemetry Medical Other Interventions: Discharge Summary Assessment (RN) Last Done: 01/30/19 13:00 DC Date/Time DO NOT enter until pt leaves facility: 01/30/19 13:50
== END 2019-01-30 13:50 | disposition home or self-care (01) | DRG 603 ==
LOC: 2N 14:49 → ED 14:49 → SUATTDRO 17:56 → 2N 18:40
DX: E10.9 Type 1 diabetes mellitus without complications; I83.018 Varicose veins of right lower extremity with ulcer other part of lower leg; Z79.01 Long term (current) use of anticoagulants; I25.10 Atherosclerotic heart disease of native coronary artery without angina pectoris; L03.115 Cellulitis of right lower limb; I50.9 Heart failure, unspecified; N18.4 Chronic kidney disease, stage 4 (severe); I87.8 Other specified disorders of veins; Z95.0 Presence of cardiac pacemaker; I11.9 Hypertensive heart disease without heart failure; F70 Mild intellectual disabilities; Z89.421 Acquired absence of other right toe(s); I83.025 Varicose veins of left lower extremity with ulcer other part of foot; L03.116 Cellulitis of left lower limb; I48.0 Paroxysmal atrial fibrillation

== ENCOUNTER 2019-06-05 16:48 | Inpatient (IN) ==
--- NOTE | 2019-06-05 17:21 | XRay Report ---
XR chest 1V portable CLINICAL HISTORY: weakness COMPARISON STUDY: 04/10/2019 FINDINGS: The heart remains enlarged. There is a left-sided pacer/defibrillator present. There is con tinued radiographic evidence of congestive failure/fluid overload. More focal right basilar opacities are likely atelectatic. Trace pleural effusions are suspected. There is no lobar consolidation[ IMPRESSION: Continued radiographic evidence of congestive failure. Electronically signed by: Tee Ulrich M.D. 06/05/2019 5:20 PM
[2019-06-05 18:03] LABS: Albumin Level 3.2 gm/dl (3.4-5.0); BUN Creatinine Ratio 25.6 (10-20); Est GFR (African American) 22.3; Est GFR (Non-African American) 19.2; Potassium 5.8 mmol/L (3.5-5.1)
[2019-06-05 18:13] LABS: Albumin Globulin Ratio 0.6 (0.9-2); Bilirubin,Total 0.3 mg/dl (0.2-1); Globulin 5.1 gm/dl (2.5-4.0); Thyroid Stimulating Hormone 4.15 uIu/ml (0.300-4.500); Total Protein 8.3 gm/dl (6.4-8.2)
[2019-06-05 18:19] LABS: Anisocytosis Present; Basophils # (auto) 0.03 K/uL (0-0.2); Basophils % (auto) 0.5 %; Eosinophils # (auto) 0.15 K/uL (0-0.5); Eosinophils % (auto) 2.5 %; Hematocrit (blood only) 33.3 % (37-47); Hemoglobin 9.5 g/dL (12.0-16.0); Hypochromasia Present; Immature Granulocytes # (auto) 0.01 K/uL (0.00-0.02); Immature Granulocytes % (auto) 0.2 %; Lymphocytes # (auto) 0.39 K/uL (1.2-3.4); Lymphocytes % (auto) 6.5 %; Mean Corpuscular Hemoglobin 27.7 pg (25-34); Mean Corpuscular Hgb Conc 28.5 g/dL (32-36); Mean Corpuscular Volume 97.1 fL (80-100); Mean Platelet Volume 7.9 fL (7.4-10.4); Monocytes # (auto) 0.35 K/uL (0.11-0.59); Monocytes % (auto) 5.8 %; Neutrophils # (auto) 5.06 K/uL (1.4-6.5); Neutrophils % (auto) 84.5 %; Platelet Count 177 K/uL (130-400); Polychromasia 1+; RDW Coefficient of Variation 20.4 % (11.5-14.5); RDW Standard Deviation 72.2 fL (36.4-46.3); Red Blood Count 3.43 M/uL (4.2-5.4); White Blood Count 5.99 K/uL (4.8-10.8)
[2019-06-05] MEDS ORDERED: cefTRIAXone SODIUM 1,000 MG/50 ML BAG IV STA (20:19)
[2019-06-05 20:27] LABS: Appearance Urine Clear (Clear); Bacteria Urine Automated Negative (Negative); Bilirubin Urine Negative (Negative); Blood Urine Negative (Negative); Color Urine Yellow; Glucose Urine UA Negative (Negative); Ketones Urine Negative (Negative); Leukocyte Esterase Urine Trace (Negative); Nitrite Urine Negative (Negative); Protein Urine Negative (Negative); RBC Urine Automated 0-4 /hpf (0-4); Specific Gravity Urine 1.015 (1.000-1.030); Urobilinogen Urine Negative (Negative); WBC Urine Automated 0 /hpf (0-5)
[2019-06-05] MEDS ORDERED: CALCIUM GLUCONATE 10% 1,000 MG in SODIUM CHLORIDE 0.9% 50 ML IV STA (20:55)
[2019-06-05] MEDS ORDERED: DEXTROSE 50% 50 ML SYRINGE IV ONE (20:56)
[2019-06-05] MEDS ORDERED: INSULIN HUMAN REGULAR PER UNIT 10 UNITS in SYRINGE 9.9 ML IV STA (20:56)
[2019-06-05] MEDS ORDERED: ALBUMIN 25% 50 ML with FUROSEMIDE 60 MG IV STA (21:07)
[2019-06-05] MEDS ORDERED: ACETAMINOPHEN 325 MG TAB ONE ×2 (21:23→21:25)
[2019-06-05] MEDS ORDERED: TRAMADOL HCL 50 MG TABLET PO STA (21:39)
[2019-06-05] MEDS ORDERED: ACETAMINOPHEN 325 MG TAB PO STA (21:39)
--- NOTE | 2019-06-05 21:40 | History & Physical Report ---
Date of Service June 05, 2019 Assessment & Plan (1) Renal failure (ARF), acute on chronic: ARF on CKD, Hyperkalemia Possibly secondary to month-long Bactrim Rx for recurrent LE cellulitis/chronic venous stasis ulcers (MSSA/Sternotrophomonas on wound CS)-swelling is worsening as per personal-shelterhome economist rule out osteomyelitis Pulmonary congestion secondary to above Cardiorenal syndrome chronic diastolic heart failure (EF of 55 % TTE 2019) chronic respiratory failure on home O2, CAD status post stenting, hx LBBB, PVD as per records AFib sp PPM, paced rhythm on Eliquis HTN, BP stable DM2 insulin requiring, well-controlled as of recent outpatient hemoglobin A1c of 5.28 March 2019 chronic anemia secondary to CKD, hemoglobin at baseline intellectual impairment as per records PCU given pulmonary congestion Lasix albumin, regular insulin for hyperkalemia Stop Bactrim, add to allergy/ADR list Strict I/Os, daily weights Nephrology consult RE hyperkalemia, ARF on CKD Plain x-rays of both legs rule out osteomyelitis Zosyn for now in place of Bactrim in consideration of microbiologic history ID consult RE Bactrim alternative for LE cellulitis/wounds Wound care consult RE follow-up eval for leg wounds/cellulitis Home Eliquis for now in anticipation of procedure related to leg wounds Basal insulin, ISS BG goal [id number] DVT prophylaxis. IV heparin while Eliquis on hold Conditional CODE STATUS (patient okay with CPR; no intubation) History of Present Illness Chief Complaint: Abnormal blood work Primary Care Provider: Lola Jean MD History obtained from patient, personal-shelterhome economist, and records. History somewhat limited from patient secondary to emotional upset. Medical history significant for chronic respiratory failure on home O2, chronic diastolic heart failure (EF of 55 % TTE 2019), CAD status post stenting, hx LBBB, AFib status post pacemaker on Eliquis, HTN, PVD, DM2 insulin requiring, chronic kidney disease (baseline creatinine 1.9), chronic anemia (baseline hemoglobin of 9), intellectual impairment as per records, recurrent LE cellulitis secondary to chronic venous stasis ulcers currently on Bactrim Rx Recent confinement January 2019 for bilateral lower leg cellulitis. Patient started by ID on Bactrim since last month for traumatic wounds of the legs (cultures growing MSSA and Sternothrophomonas). Patient to follow-up with ID end of the month. Debridement of leg wounds done at wound care center yesterday. As per personal-shelterhome economist, leg swelling looking worse. No fever, no chills. Patient seen at [facility] [place], follow-up for CKD. Patient complaining of shortness of breath. Outpatient blood work, chest x-ray requested. Outpatient serum potassium noted to be 6.5, serum creatinine 2.3, serum magnesium 3. Patient directed to the ER by dump worker. MEDICAL HISTORY: As above. SURGERIES: She has had ICD/pacemaker placement, cholecystectomy, arthroplasty, breast cyst removal, toe amputation FAMILY HISTORY: There is a family history of heart disease. PERSONAL AND SOCIAL HISTORY: Nonsmoker, no chronic intake of alcoholic beverages. Lives at a personal shelter - [facility]. 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 Allergies Allergy/AdvReac Type Severity Reaction Status Date / Time sulfamethoxazole AdvReac Intermediate hyperkalemi Verified 06/05/19 21:43 [From Bactrim] a trimethoprim [From Bactrim] AdvReac Intermediate hyperkalemi Verified 06/05/19 21:43 a Home Medications Home Medications Medication Instructions Recorded Confirmed Type apixaban 5 mg tablet 5 mg PO BID 02/22/18 06/05/19 History aspirin 81 mg chewable tablet 81 mg PO QAM 02/22/18 06/05/19 History carvedilol 6.25 mg tablet 6.25 mg PO BID 02/22/18 06/05/19 History cholecalciferol (vitamin D3) 50 2,000 units PO QAM 02/22/18 06/05/19 History mcg (2,000 unit) capsule digoxin 125 mcg (0.125 mg) tablet 0.125 mg PO Q2D 02/22/18 06/05/19 History ferrous sulfate 325 mg (65 mg 325 mg PO BIDM tab 02/22/18 06/05/19 History iron) tablet,delayed release furosemide 40 mg tablet 40 mg PO QAM 02/22/18 06/05/19 History gabapentin 100 mg capsule 100 mg PO TID cap 02/22/18 06/05/19 History insulin aspar prt-insulin aspart 42 units SQ QDD ml 02/22/18 06/05/19 History 100 unit/mL (70-30) subcutaneous soln insulin aspar prt-insulin aspart 48 units SQ QDB ml 02/22/18 06/05/19 History 100 unit/mL (70-30) subcutaneous soln insulin aspart U-100 100 unit/mL 4 units SQ QDL ml 02/22/18 06/05/19 History (3 mL) subcutaneous pen sennosides 8.6 mg-docusate sodium 1 tab PO BID 02/22/18 06/05/19 History 50 mg tablet simvastatin 20 mg tablet 20 mg PO QPM 02/22/18 06/05/19 History levothyroxine 75 mcg PO DAILYBB 08/30/18 06/05/19 History trazodone 50 mg PO HS 08/30/18 06/05/19 History Zeasorb AF 1 applic TOPICAL DIRECTED 01/25/19 06/05/19 History magnesium hydroxide [Milk of 30 ml PO DAILY PRN 01/25/19 06/05/19 History Magnesia] polyethylene glycol 3350 [Miralax] 17 g PO DAILY PRN 01/25/19 06/05/19 History amiodarone 200 mg tablet 200 mg PO QAM #90 tab 04/13/19 06/05/19 Rx acetaminophen 1,000 mg PO Q6 PRN MDD 3000 05/16/19 06/05/19 History sulfamethoxazole 800 1 tab PO BID #60 tab 05/21/19 06/05/19 Rx mg-trimethoprim 160 mg tablet isosorbide mononitrate 30 mg PO DAILY 06/05/19 06/05/19 History Past Med/Surg History Medical History A-fib (Chronic) Acquired claw toe of left foot (Acute) Acquired claw toe of right foot (Acute) Acquired hallux valgus of right foot (Acute) Anemia (Chronic) Anemia (Chronic) Atrial fibrillation (Chronic) CHF (congestive heart failure) (Chronic) CHF (congestive heart failure) (Chronic) Chronic venous insufficiency (Chronic) Coronary artery disease (Chronic) Diabetes 1.5, 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 (Acute) Diabetic neuropathy (Chronic) DM type 2 (diabetes mellitus, type 2) (Chronic) Hallux valgus (acquired), left foot (Acute) History of osteomyelitis (Chronic) "R third toe" History of uterine cancer (Chronic) "s/p XRT" HTN (hypertension) (Chronic) Hyperlipidemia (Chronic) Mild intellectual disability (Chronic) Pacemaker (Chronic) Type 2 diabetes mellitus with diabetic peripheral angiopathy without gangrene (Acute) Uterine cancer (Resolved) Surgical History History of amputation of lesser toe of right foot (Chronic) History of amputation of lesser toe of right foot (Acute) History of lumpectomy of left breast (Resolved) History of total bilateral knee replacement (Chronic) S/P cardiac pacemaker procedure (Resolved) S/P cholecystectomy (Chronic) S/P cholecystectomy (Resolved) Status post bilateral knee replacements (Resolved) Status post placement of cardiac pacemaker (Chronic) Family History Mother Pneumonia Social History Preferred Language: Spanish Communication Ability: Effective Visual Impairment: No Limitations 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: Normal Truck Hopper Required: No Beliefs That Will Affect Care: None marital status: Current Living Situation: Personal Care Facility Current Living Situation Comment: [facility] Other Information That Helps Us Care for You: No Feels Safe at Home: Yes Safety Concerns: Feels Safe At This Time Smoking Status: Never smoker Second Hand Exposure: No ; Hx Alcohol Use: No Hx Substance Use: No Review of Systems Review of Systems: As per HPI, all 10 systems reviewed, all other ROS negative Physical Exam Physical Exam: GENERAL: Comfortable, crying, obese, no respiratory distress SKIN: Pallor, warm HEENT: Pale palpebral conjunctivae, no ptosis, dry buccal mucosa, nasal cannula in place NECK : Supple, short neck, no tenderness CHEST : Decreased breath sounds , no tenderness HEART : RRR, no obvious murmurs ABDOMEN: Some distention, nontender EXTREMITIES : Bilateral lower extremity induration with minimal LE tenderness, dressing wrapped around right lower extremity, no other conspicuous deformities noted NEUROLOGIC : Coherent, oriented to place, no facial asymmetry, no other gross focality Results & Data Vital Signs (Past 12 Hours) Vital Signs Temp Pulse Pulse Resp BP BP Pulse Ox 06/05/19 20:01 60 20 114/65 98 06/05/19 18:24 60 20 134/60 98 06/05/19 16:54 36.7 C 61 20 119/72 96 Laboratory Results Laboratory Results WBC 5.99 K/uL (4.8-10.8) 06/05/19: RBC 3.43 M/uL (4.2-5.4) L 06/05/19 17: Hgb 9.5 g/dL (12.0-16.0) L 06/05/19: Hct 33.3 % (37-47) L 06/05/19: MCV 97.1 fL (80-100) 06/05/19: MCH 27.7 pg (25-34) 06/05/19: MCHC 28.5 g/dL (32-36) L 06/05/19 RDW Std Deviation 72.2 fL (36.4-46.3) H 06/05/19 RDW Coeff of Gerardo 20.4 % (11.5-14.5) H 06/05/19 Plt Count 177 K/uL (130-400) 06/05/19: MPV 7.9 fL (7.4-10.4) 06/05/19: Immature Gran % (Auto) 0.2 % 06/05/19: Neut % (Auto) 84.5 % 06/05/19: Lymph % (Auto) 6.5 % 06/05/19: [place] % (Auto) 5.8 % 06/05/19: Eos % (Auto) 2.5 % 06/05/19: Baso % (Auto) 0.5 % 06/05/19: Immature Gran # (Auto) 0.01 K/uL (0.00-0.02) 06/05/19: Neut # (Auto) 5.06 K/uL (1.4-6.5) 06/05/19: Lymph # (Auto) 0.39 K/uL (1.2-3.4) L 06/05/19: [place] # (Auto) 0.35 K/uL (0.11-0.59) 06/05/19 17: Eos # (Auto) 0.15 K/uL (0-0.5) 06/05/19 17:28 Baso # (Auto) 0.03 K/uL (0-0.2) 06/05/19 17:28 Polychromasia 1+ 06/05/19 17:28 Hypochromasia Present 06/05/19 17:28 Anisocytosis Present 06/05/19 17:28 Sodium 136 mmol/L (136-145) 06/05/19 17:28 Potassium 5.8 mmol/L (3.5-5.1) H 06/05/19 17:28 Chloride 104 mmol/L (98-107) 06/05/19 17:28 Carbon Dioxide 31 mmol/L (21-32) 06/05/19 17:28 Anion Gap 1.0 (3-11) L 06/05/19 17:28 BUN 61 mg/dl (7-18) H 06/05/19 17:28 Creatinine 2.39 mg/dl (0.6-1.2) H 06/05/19 17:28 Est Cr Clr Drug Dosing 24.0 ml/min 06/05/19 17:28 Est GFR ( Amer) 22.3 06/05/19 17:28 Est GFR (Non-Af Amer) 19.2 06/05/19 17:28 BUN/Creatinine Ratio 25.6 (10-20) H 06/05/19 17:28 Glucose 121 mg/dl (70-99) H 06/05/19 17:28 Calcium 9.0 mg/dl (8.5-10.1) 06/05/19 17:28 Total Bilirubin 0.3 mg/dl (0.2-1) 06/05/19 17:28 AST 11 U/L (15-37) L 06/05/19 17:28 ALT 17 U/L (12-78) 06/05/19 17:28 Alkaline Phosphatase 69 U/L (45-117) 06/05/19 17:28 Total Protein 8.3 gm/dl (6.4-8.2) H 06/05/19 17:28 Albumin 3.2 gm/dl (3.4-5.0) L 06/05/19 17:28 Globulin 5.1 gm/dl (2.5-4.0) H 06/05/19 17:28 Albumin/Globulin Ratio 0.6 (0.9-2) L 06/05/19 17:28 TSH 4.150 uIu/ml (0.300-4.500) 06/05/19 17:28 Urine Color Yellow 06/05/19 20:19 Urine Appearance Clear (Clear) 06/05/19 20: Urine pH 5.0 (4.5-7.5) 06/05/19 20: Ur Specific [place] 1.015 (1.000-1.030) 06/05/19 20: Urine Protein Negative (Negative) 06/05/19 20: Urine Glucose (UA) Negative (Negative) 06/05/19 20: Urine Ketones Negative (Negative) 06/05/19: Urine Blood Negative (Negative) 06/05/19: Urine Nitrite Negative (Negative) 06/05/19 20: Urine Bilirubin Negative (Negative) 06/05/19 20: Urine Urobilinogen Negative (Negative) 06/05/19: Ur Leukocyte Esterase Trace (Negative) H 06/05/19 20:19 Urine WBC (Auto) 0 /hpf (0-5) 06/05/19 20:19 Urine RBC (Auto) 0-4 /hpf (0-4) 06/05/19 20: U Hyaline Cast (Auto) 1-5 /lpf (0-5) 06/05/19 20: U Epithel Cells (Auto) 10-20 /lpf (0-5) H 06/05/19 20:19 Urine Bacteria (Auto) Negative (Negative) 06/05/19 20:19 Diagnostic Findings Chest x-ray : Continued radiographic evidence of congestive failure. EKG as per my interpretation : Rate 60, paced rhythm
[2019-06-05] MEDS ORDERED: HEPARIN SODIUM/DEXTROSE 25,000 UNITS/500 ML BAG IV SCH (22:00)
--- NOTE | 2019-06-05 23:05 | Emergency Department Note ---
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 Per the records reviewed, the patient's labs showed potassium in mid 6's, creatinine 2.3, and potassium is 6.5. The patient reports that she is normally on oxygen at home. She states that she has been experiencing an infection in her legs bilaterally which she takes Bactrim for. She admits that she has been having chronic left lower extremity pain. Home Medications Home Medications Medication Instructions Recorded Confirmed Type apixaban 5 mg tablet 5 mg PO BID 02/22/18 06/05/19 History aspirin 81 mg chewable tablet 81 mg PO QAM 02/22/18 06/05/19 History carvedilol 6.25 mg tablet 6.25 mg PO BID 02/22/18 06/05/19 History cholecalciferol (vitamin D3) 50 2,000 units PO QAM 02/22/18 06/05/19 History mcg (2,000 unit) capsule digoxin 125 mcg (0.125 mg) tablet 0.125 mg PO Q2D 02/22/18 06/05/19 History ferrous sulfate 325 mg (65 mg 325 mg PO BIDM tab 02/22/18 06/05/19 History iron) tablet,delayed release furosemide 40 mg tablet 40 mg PO QAM 02/22/18 06/05/19 History gabapentin 100 mg capsule 100 mg PO TID cap 02/22/18 06/05/19 History insulin aspar prt-insulin aspart 42 units SQ QDD ml 02/22/18 06/05/19 History 100 unit/mL (70-30) subcutaneous soln insulin aspar prt-insulin aspart 48 units SQ QDB ml 02/22/18 06/05/19 History 100 unit/mL (70-30) subcutaneous soln insulin aspart U-100 100 unit/mL 4 units SQ QDL ml 02/22/18 06/05/19 History (3 mL) subcutaneous pen sennosides 8.6 mg-docusate sodium 1 tab PO BID 02/22/18 06/05/19 History 50 mg tablet simvastatin 20 mg tablet 20 mg PO QPM 02/22/18 06/05/19 History levothyroxine 75 mcg PO DAILYBB 08/30/18 06/05/19 History trazodone 50 mg PO HS 08/30/18 06/05/19 History Zeasorb AF 1 applic TOPICAL DIRECTED 01/25/19 06/05/19 History magnesium hydroxide [Milk of 30 ml PO DAILY PRN 01/25/19 06/05/19 History Magnesia] polyethylene glycol 3350 [Miralax] 17 g PO DAILY PRN 01/25/19 06/05/19 History amiodarone 200 mg tablet 200 mg PO QAM #90 tab 04/13/19 06/05/19 Rx acetaminophen 1,000 mg PO Q6 PRN MDD 3000 05/16/19 06/05/19 History sulfamethoxazole 800 1 tab PO BID #60 tab 05/21/19 06/05/19 Rx mg-trimethoprim 160 mg tablet isosorbide mononitrate 30 mg PO DAILY 06/05/19 06/05/19 History Allergies Allergy/AdvReac Type Severity Reaction Status Date / Time sulfamethoxazole AdvReac Intermediate hyperkalemi Verified 06/05/19 21:43 [From Bactrim] a trimethoprim [From Bactrim] AdvReac Intermediate hyperkalemi Verified 06/05/19 21:43 a Past Med/Surg History Medical History A-fib (Chronic) Acquired claw toe of left foot (Acute) Acquired claw toe of right foot (Acute) Acquired hallux valgus of right foot (Acute) Anemia (Chronic) Anemia (Chronic) Atrial fibrillation (Chronic) CHF (congestive heart failure) (Chronic) CHF (congestive heart failure) (Chronic) Chronic venous insufficiency (Chronic) Coronary artery disease (Chronic) Diabetes 1.5, 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 (Acute) Diabetic neuropathy (Chronic) DM type 2 (diabetes mellitus, type 2) (Chronic) Hallux valgus (acquired), left foot (Acute) History of osteomyelitis (Chronic) "R third toe" History of uterine cancer (Chronic) "s/p XRT" HTN (hypertension) (Chronic) Hyperlipidemia (Chronic) Mild intellectual disability (Chronic) Pacemaker (Chronic) Type 2 diabetes mellitus with diabetic peripheral angiopathy without gangrene (Acute) Uterine cancer (Resolved) Surgical History History of amputation of lesser toe of right foot (Chronic) History of amputation of lesser toe of right foot (Acute) History of lumpectomy of left breast (Resolved) History of total bilateral knee replacement (Chronic) S/P cardiac pacemaker procedure (Resolved) S/P cholecystectomy (Chronic) S/P cholecystectomy (Resolved) Status post bilateral knee replacements (Resolved) Status post placement of cardiac pacemaker (Chronic) Family History Mother Pneumonia Social History Preferred Language: [place]an Communication Ability: Effective Visual Impairment: No Limitations 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: Normal [employer]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 and A total of 10 systems reviewed and were otherwise negative Physical Exam Vital Signs Vital Signs - 24 hr 06/05/19 16:54 06/05/19 18:24 06/05/19 20:01 Temperature 36.7 C Temperature Source Oral Pulse Rate 61 Pulse Rate [Right Finger] 60 60 Pulse Rhythm Regular Pulse Strength Normal Respiratory Rate 20 20 20 Respiratory Effort / Characteristics Non-Labored Non-Labored Spontaneous Respiratory Depth Normal Normal Respiratory Pattern Regular Blood Pressure 119/72 Blood Pressure [Right Arm] 134/60 114/65 Blood Pressure Mean 87 Blood Pressure Mean [Right Arm] 84 81 Blood Pressure Position Sitting Pulse Oximetry 96 98 98 Oxygen Delivery Method Nasal Cannula Nasal Cannula Nasal Cannula Oxygen Flow Rate 2 2 2 Sepsis Recent Fever Within 48 Hours No Sepsis New/Unexplained Change in Mental Status No Sepsis Action Taken by Nursing No Action Required 06/05/19 22:18 Temperature Temperature Source Pulse Rate Pulse Rate [Right Finger] 72 Pulse Rhythm Pulse Strength Respiratory Rate 20 Respiratory Effort / Characteristics Respiratory Depth Respiratory Pattern Blood Pressure Blood Pressure [Right Arm] 123/54 L Blood Pressure Mean Blood Pressure Mean [Right Arm] 77 Blood Pressure Position Pulse Oximetry 98 Oxygen Delivery Method Oxygen Flow Rate Sepsis Recent Fever Within 48 Hours Sepsis New/Unexplained Change in Mental Status Sepsis Action Taken by Nursing GENERAL: Morbidly obese, sitting up in bed, nasal cannula in place 2 liter EYE EXAM: normal conjunctiva OROPHARYNX: no exudate, no erythema, lips, buccal mucosa, and tongue normal and mucous membranes are moist NECK: supple, no nuchal rigidity, no adenopathy, non-tender LUNGS: Diminished breath sounds bilaterally. Normal chest wall mechanics HEART: no murmurs, S1 normal and S2 normal ABDOMEN: abdomen soft, non-tender, normo-active bowel sounds, no masses, no rebound or guarding. BACK: Back is symmetrical on inspection and there is no deformity, no midline tenderness, no CVA tenderness. SKIN: no rashes and no bruising UPPER EXTREMITIES: upper extremities are grossly normal. LOWER EXTREMITIES: Left first toe medial dorsal surface 2 cm by 1 cm vesical filled with blood, 2nd digit just distal to nail 1 cm by 0.5 cm area of necro sis, anterior wu with discoloration skin posteriorly with mild bleeding, midline incision over left knee, erythema of right mid wu anteriorly tracking cephalad, ulcer of left lateral calf. NEURO EXAM: Oriented to person and place, cranial nerves II-XII grossly intact, normal speech, no gross weakness of arms, no gross weakness of legs. Course Course ED COURSE: Vital signs were reviewed and showed nor The patients medical record was reviewed The above diagnostic studies were performed and reviewed. ED treatments and interventions as stated above. 0: The patient was evaluated in room A4B. A complete history and physical examination was performed. 1957: I discussed the patient's case with Dr. Nova- [facility], he agrees with volume status, JASON, and intermittent confusion, that the patient should come in. 2027: [facility] he will accept the patient for further evaluation. 2034: Upon reevaluation, the patient is resting comfortably. I discussed my findings with the patient and she understands and agrees with the treatment ally n. Based on the patients age, coexisting illnesses, exam and lab findings the decision to treat as an inpatient was made. The patient remained stable while under my care. The patient will be evaluated for further management. Administered Medications Discontinued Medications Acetaminophen (Tylenol) Confirm Administered Dose 650 mg .ROUTE .STK-MED ONE Stop: 06/05/19 21:24 Last Admin: 06/05/19 21:27 Dose: 650 mg Documented by: [id number] Acetaminophen (Tylenol) Confirm Administered Dose 325 mg .ROUTE .STK-MED ONE Stop: 06/05/19 21:26 Last Admin: 06/05/19 21:27 Dose: Not Given Documented by: [id number] Acetaminophen (Tylenol) 650 mg PO NOW STA Stop: 06/05/19 21:40 Last Admin: 06/05/19 21:43 Dose: Not Given Documented by: [id number] Dextrose (Dextrose 50%) 50 ml IV NOW ONE Stop: 06/05/19 20:57 Last Admin: 06/05/19 22:02 Dose: 50 ml Documented by: [id number] Ceftriaxone Sodium (Rocephin) 1,000 mg in 50 mls @ 100 mls/hr IV NOW STA Stop: 06/05/19 20:48 Last Infusion: 06/05/19 21:14 Dose: 0 mls/hr Documented by: [id number] Admin: 06/05/19 20:34 Dose: 100 mls/hr Documented by: [id number] Calcium Gluconate 1,000 mg/ (Sodium Chloride) 60 mls @ 240 mls/hr IV NOW STA Stop: 06/05/19 21:09 Last Infusion: 06/05/19 22:20 Dose: 0 mls/hr Documented by: [id number] Admin: 06/05/19 21:41 Dose: 240 mls/hr Documented by: [id number] Furosemide 60 mg/ Albumin (Human) 56 mls @ 54 mls/hr IV NOW STA Stop: 06/05/19 22:09 Last Admin: 06/05/19 22:02 Dose: 54 mls/hr Documented by: [id number] Insulin Human Regular 10 units (/ Syringe) 10 mls @ 0 mls/hr IV ONE STA Stop: 06/05/19 20:57 Last Admin: 06/05/19 21:38 Dose: 9.9 mls/hr Documented by: [id number] Cosigned by: [id number] Tramadol HCl (Ultram) 25 mg PO NOW STA Stop: 06/05/19 21:40 Last Admin: 06/05/19 22:02 Dose: 25 mg Documented by: [id number] Medical Decision Making Differential Diagnosis Differential Diagnosis includes but is not limited to dehydration, stroke, anemia, hypoglycemia, hyponatremia, hypernatremia, urinary tract infection, pneumonia, bronchitis, sepsis, gastroenteritis, additional abdominal pathology, metabolic abnormalities and infections. Medical Records Attestation: I reviewed the patient's medical records. Home Medications Current Medication List: was personally reviewed by me Laboratory Data Attestation: I reviewed the patient's lab results. Result diagrams: 06/05/19 17:28 06/05/19 17:28 Lab Results 06/05/19 06/05/19 06/05/19 Range/Units 17:28 17:28 20:19 WBC 5.99 (4.8-10.8) K/uL RBC 3.43 L (4.2-5.4) M/uL Hgb 9.5 L (12.0-16.0) g/dL Hct 33.3 L (37-47) % MCV 97.1 (80-100) fL MCH 27.7 (25-34) pg MCHC 28.5 L (32-36) g/dL RDW Std Deviation 72.2 H (36.4-46.3) fL RDW Coeff of Gerardo 20.4 H (11.5-14.5) % Plt Count 177 (130-400) K/uL MPV 7.9 (7.4-10.4) fL Immature Gran % (Auto) 0.2 % Neut % (Auto) 84.5 % Lymph % (Auto) 6.5 % [place] % (Auto) 5.8 % Eos % (Auto) 2.5 % Baso % (Auto) 0.5 % Immature Gran # (Auto) 0.01 (0.00-0.02) K/uL Neut # (Auto) 5.06 (1.4-6.5) K/uL Lymph # (Auto) 0.39 L (1.2-3.4) K/uL [place] # (Auto) 0.35 (0.11-0.59) K/uL Eos # (Auto) 0.15 (0-0.5) K/uL Baso # (Auto) 0.03 (0-0.2) K/uL Polychromasia 1+ Hypochromasia Present Anisocytosis Present Sodium 136 (136-145) mmol/L Potassium 5.8 H (3.5-5.1) mmol/L Chloride 104 (98-107) mmol/L Carbon Dioxide 31 (21-32) mmol/L Anion Gap 1.0 L (3-11) BUN 61 H (7-18) mg/dl Creatinine 2.39 H (0.6-1.2) mg/dl Est Cr Clr Drug Dosing 24.0 ml/min Est GFR ( Amer) 22.3 Est GFR (Non-Af Amer) 19.2 BUN/Creatinine Ratio 25.6 H (10-20) Glucose 121 H (70-99) mg/dl Calcium 9.0 (8.5-10.1) mg/dl Total Bilirubin 0.3 (0.2-1) mg/dl AST 11 L (15-37) U/L ALT 17 (12-78) U/L Alkaline Phosphatase 69 (45-117) U/L Total Protein 8.3 H (6.4-8.2) gm/dl Albumin 3.2 L (3.4-5.0) gm/dl Globulin 5.1 H (2.5-4.0) gm/dl Albumin/Globulin Ratio 0.6 L (0.9-2) TSH 4.150 (0.300-4.500) uIu/ml Urine Color Yellow Urine Appearance Clear (Clear) Urine pH 5.0 (4.5-7.5) Ur Specific [place] 1.015 (1.000-1.030) Urine Protein Negative (Negative) Urine Glucose (UA) Negative (Negative) Urine Ketones Negative (Negative) Urine Blood Negative (Negative) Urine Nitrite Negative (Negative) Urine Bilirubin Negative (Negative) Urine Urobilinogen Negative (Negative) Ur Leukocyte Esterase Trace H (Negative) Urine WBC (Auto) 0 (0-5) /hpf Urine RBC (Auto) 0-4 (0-4) /hpf U Hyaline Cast (Auto) 1-5 (0-5) /lpf U Epithel Cells (Auto) 10-20 H (0-5) /lpf Urine Bacteria (Auto) Negative (Negative) Imaging Data Radiologist's Impression: Radiology results as stated below per my review and the radiologist's interpretation: XR chest 1V portable CLINICAL HISTORY: weakness COMPARISON STUDY: 04/10/2019 FINDINGS: The heart remains enlarged. There is a left-sided pacer/defibrillator present. There is continued radiographic evidence of congestive failure/fluid overload. More focal right basilar opacities are likely atelectatic. Trace pleural effusions are suspected. There is no lobar consolidation[ IMPRESSION: Continued radiographic evidence of congestive failure. Electronically signed by: Tee Ulrich M.D. 06/05/2019 5:20 PM ECG Data Attestation: I personally reviewed and interpreted this ECG as follows: Indication: + weakness Rate (beats per minute): 61 Rhythm: + other (duel paced) ECG Intervals/blocks: + Normal QT ECG [place]: + Left axis deviation (poor baseline) ECG ST segments: + T-wave inversions (septal ) ECG Findings: no PVCs Comparison ECG Date: from (04/10/19) Change: no significant change Blood Pressure Blood Pressure Findings: Low blood pressure Blood Pressure Disposition: did not require urgent referral MDM Narrative Patient is a 73-year-old female who presents the ER referred in by nephrology as she was seen earlier today and had blood work done. She was found to be volume overloaded along with JASON and a potassium of 6.5. IV was established blood work was obtained. Labs show no significant leukocytosis. Mild anemia 9.5. BMP with a creatinine of 2.4 and a potassium of 5.8. This is up from a baseline of about 2. LFTs bilirubin was unremarkable. TSH was unremarkable. UA was negative. Chest x-ray does show pulmonary edema. With the pitting edema and the 24-hour oxygen did discuss with nephrology and patient will be observed overnight. Impression & Plan CHF (congestive heart failure), JASON (acute kidney injury), Cellulitis Discharge Plan Visit Data Chief Complaint: Abnormal Labs/Diagnostic Testing Stated Complaint: ABNORMAL LAB ED Provider: Austin Peres Discharge Problem: CHF (congestive heart failure), JASON (acute kidney injury), Cellulitis Patient Disposition: Being Evaluated by Hospitalist Discharge Instructions Interventions: ED Discharge Assessment Last Done: 06/05/19 22:30 Forms Stand Alone Forms: [email or web address] Prescriptions Prescriptions: No Action apixaban [Eliquis] 5 mg tablet 5 mg PO BID RF: 0 aspirin 81 mg tablet,chewable 81 mg PO QAM RF: 0 carvedilol [Coreg] 6.25 mg tablet 6.25 mg PO BID RF: 0 cholecalciferol (vitamin D3) 2,000 unit capsule 2,000 units PO QAM RF: 0 digoxin 125 mcg tablet 0.125 mg PO Q2D RF: 0 ferrous sulfate 325 mg (65 mg iron) tablet,delayed release (DR/EC) 325 mg PO BIDM RF: 0 furosemide 40 mg tablet 40 mg PO QAM RF: 0 gabapentin [Neurontin] 100 mg capsule 100 mg PO TID RF: 0 insulin asp prt-insulin aspart [Novolog Mix 70-30 U-100 Insuln] 100 unit/mL (70-30) solution 48 units SQ QDB RF: 0 insulin asp prt-insulin aspart [Novolog Mix 70-30 U-100 Insuln] 100 unit/mL (70-30) solution 42 units SQ QDD RF: 0 insulin aspart U-100 [Novolog Flexpen U-100 Insulin] 100 unit/mL insulin pen 4 units SQ QDL RF: 0 sennosides-docusate sodium 8.6-50 mg tablet 1 tab PO BID RF: 0 simvastatin [Zocor] 20 mg tablet 20 mg PO QPM RF: 0 amiodarone 200 mg tablet 200 mg PO QAM Qty: 90 RF: 3 sulfamethoxazole-trimethoprim [Bactrim DS] 800-160 mg tablet 1 tab PO BID Qty: 60 RF: 0 trazodone 50 mg Tablet 50 mg PO HS RF: 0 levothyroxine 75 mcg Tablet 75 mcg PO DAILYBB RF: 0 polyethylene glycol 3350 [Miralax] 17 gram Powder In Packet 17 g PO DAILY PRN (Reason: Constipation) RF: 0 Zeasorb AF 2 % Powder 1 applic TOPICAL DIRECTED RF: 0 magnesium hydroxide [Milk of Magnesia] 400 mg/5 mL Suspension 30 ml PO DAILY PRN (Reason: Constipation) RF: 0 acetaminophen 500 mg Tablet 1,000 mg PO Q6 MDD 3000 PRN (Reason: Pain) RF: 0 isosorbide mononitrate 30 mg Tablet Extended Release 24 Hr 30 mg PO DAILY RF: 0 Referrals Referrals: Lola Jean MD [Primary Care Provider] - Discharge Problem: CHF (congestive heart failure) Qualifiers: Heart failure type: unspecified Heart failure chronicity: acute Qualified Code(s): I50.9 - Heart failure, unspecified Cellulitis Qualifiers: Site of cellulitis: extremity Site of cellulitis of extremity: lower extremity Laterality: unspecified laterality Qualified Code(s): L03.119 - Cellulitis of unspecified part of limb The scribe's documentation has been prepared under my direction and personally reviewed by me in its entirety. I confirm that the note above accurately reflec ts all work, treatment, procedures, and medical decision making performed by me.
[2019-06-05] MEDS ORDERED: GLUCOSE 10 TABS/TUBE PO PRN (23:46)
[2019-06-05] MEDS ORDERED: PIPERACILL/TAZOBAC CONSULT ACTIVE PRN (23:46)
[2019-06-05] MEDS ORDERED: GLUCAGON FOR INJ 1 MG VIAL SQ PRN (23:46)
[2019-06-05] MEDS ORDERED: NITROGLYCERIN SL 0.4 MG/TAB TAB SL PRN (23:46)
[2019-06-05] MEDS ORDERED: CARBOHYDRATES FOR HYPOGLYCEMIA PO PRN (23:46)
[2019-06-05] MEDS ORDERED: GLUCOSE 40% GEL 15 GM TUBE PO PRN (23:46)
[2019-06-05] MEDS ORDERED: DEXTROSE 50% 50 ML SYRINGE IV PRN (23:46)
[2019-06-06] MEDS ORDERED: PIPERACILLIN/TAZOBACTAM 4.5 GM/120 ML BAG IV ONE
[2019-06-06 00:42] LABS: Calcium 9.3 mg/dl (8.5-10.1); Est GFR (African American) 22.3; Est GFR (Non-African American) 19.2; Potassium 5.2 mmol/L (3.5-5.1)
[2019-06-06] MEDS: Heparin IV Standard *NO* Bolus IV SCH ×5 (00:53→02:30)
[2019-06-06] MEDS: INSULIN ASPART 100 UNITS/ML 3 ML PEN SC SCH ×5 (01:01→20:16)
[2019-06-06] MEDS: TRAMADOL HCL 50 MG TABLET PO PRN ×3 (01:07→20:07)
[2019-06-06 01:14] LABS: INR 1.2 (0.9-1.1); Partial Thromboplastin Ratio 1.1; Partial Thromboplastin Time 30.3 Seconds (21.0-31.0); Prothrombin Time 12.1 Seconds (9.0-12.0)
[2019-06-06] MEDS: PIPERACILLIN/TAZOBACTAM 4.5 GM in DEXTROSE 5% 100 ML IV SCH ×3 (06:04→20:07)
[2019-06-06] MEDS: LEVOTHYROXINE SODIUM 75 MCG TABLET PO SCH (06:04)
--- NOTE | 2019-06-06 06:50 | Ultrasound Report ---
US venous doppler LE CLINICAL HISTORY: 73 years-old Female presenting with bilateral lower extremity redness and edema. TECHNIQUE: Real-time grayscale and color and spectral Doppler ultrasound imaging of the veins of the bilateral lower extremities was performed. Compression and augmentation were also utilized. COMPARISON: 05/09/2019. FINDINGS: RIGHT: Common femoral vein: Patent. Greater saphenous vein (superficial): Patent. Deep femoral vein: Patent. Femoral vein: Patent. Popliteal vein: Patent. Calf veins: Patent. LEFT: Common femoral vein: Patent. Greater saphenous vein (superficial): Patent. Deep femoral vein: Patent. Femoral vein: Patent. Popliteal vein: Patent. Calf veins: Patent. Other: None. IMPRESSION: No evidence of deep venous thrombosis. Electronically signed by: Pato Hamilton M.D. 06/06/2019 6:49 AM
--- NOTE | 2019-06-06 07:31 | XRay Report ---
XR tibia fibula LT 2V CLINICAL HISTORY: Swelling. Evaluate for osteomyelitis. COMPARISON: Left tibia and fibula radiographs January 20, 2018. FINDINGS: No fracture is noted within the left tibia or fibula. There is no evidence for osteomyelit is. Soft tissue swelling is noted with suspected varicosities. Vascular calcification is noted. IMPRESSION: No fracture or evidence for osteomyelitis within the left tibia or fibula. Electronically signed by: Tyler Riddle M.D. 06/06/2019 7:29 AM
--- NOTE | 2019-06-06 07:47 | XRay Report ---
XR tibia fibula RT 2V CLINICAL HISTORY: Right lower leg pain and swelling. Evaluate for osteomyelitis. COMPARISON: None FINDINGS: There is no fracture or evidence for osteomyelitis within the right tibia or fibula. This extensive vascular calcification. IMPRESSION: No fracture or evidence for osteomyelitis within the right tibia or fibula. Electronically signed by: Tyler Riddle M.D. 06/06/2019 7:46 AM
[2019-06-06] MEDS: FERROUS SULFATE 325 MG TAB PO SCH ×2 (08:08→17:27)
[2019-06-06] MEDS: ISOSORBIDE MONO EXTENDED REL 30 MG TABCR PO SCH (08:08)
[2019-06-06] MEDS: carvediloL 6.25 MG TAB PO SCH ×2 (08:08→20:02)
[2019-06-06] MEDS: DOCUSATE SODIUM/SENNA 50/8.6MG TAB PO SCH ×2 (08:08→20:07)
[2019-06-06] MEDS: GABAPENTIN 100 MG CAP PO SCH ×3 (08:08→20:03)
[2019-06-06] MEDS: AMIODARONE 200 MG TAB PO SCH (08:08)
[2019-06-06 08:33] LABS: Hematocrit (blood only) 32.5 % (37-47); Hemoglobin 9.2 g/dL (12.0-16.0); Mean Corpuscular Hemoglobin 27.1 pg (25-34); Mean Corpuscular Hgb Conc 28.3 g/dL (32-36); Mean Corpuscular Volume 95.6 fL (80-100); Mean Platelet Volume 8.4 fL (7.4-10.4); Platelet Count 146 K/uL (130-400); RDW Coefficient of Variation 20.5 % (11.5-14.5); RDW Standard Deviation 71.5 fL (36.4-46.3); White Blood Count 4.98 K/uL (4.8-10.8)
[2019-06-06 08:45] LABS: Anisocytosis Present; Basophils # (auto) 0.01 K/uL (0-0.2); Basophils % (auto) 0.2 %; Eosinophils # (auto) 0.21 K/uL (0-0.5); Eosinophils % (auto) 4.2 %; Hypochromasia Present; Lymphocytes # (auto) 0.33 K/uL (1.2-3.4); Lymphocytes % (auto) 6.6 %; Monocytes # (auto) 0.42 K/uL (0.11-0.59); Monocytes % (auto) 8.4 %; Neutrophils # (auto) 4.01 K/uL (1.4-6.5); Neutrophils % (auto) 80.6 %
[2019-06-06 08:46] LABS: Partial Thromboplastin Ratio 1.9
[2019-06-06 08:59] LABS: BUN Creatinine Ratio 25.6 (10-20); Calcium 9.4 mg/dl (8.5-10.1); Creatinine Clr Calc Pharmacy 24.8 ml/min; Est GFR (Non-African American) 19.8; Partial Thromboplastin Time 50.2 Seconds (21.0-31.0); Potassium 4.9 mmol/L (3.5-5.1)
[2019-06-06] MEDS ORDERED: INSULIN GLARGINE SOLOSTAR 100 UNITS/ML 3 ML PEN SC STA (09:39)
[2019-06-06] MEDS: FUROSEMIDE 20 MG in SYRINGE 0 ML IV SCH ×3 (10:10→17:28)
--- NOTE | 2019-06-06 11:07 | Infectious Disease Consult ---
Date of Consultation June 06, 2019 Assessment & Plan (1) Cellulitis: can continue zosyn for now, upon d/c would suggest omnicef x 21 days. will plan to follow in wound center post d/c. continue local wound care. (2) Traumatic wound: History of Present Illness Attending Physician: Isabelle Hauser MD pt admitted with lethargy noted by home nursing, was last seen in wound center on 06/04. has chronic ulcerations b/l legs. was last seen by ID on 05/21 - was on bactrim. In ER was found to have creat 2.3 and K+ 5.8, now improved. bactrim held, now on zosyn. previous wound culture 05/01 grew MSSA and stenotrophomonas, both sensitive to bactrim. She is afebrile. denies pain in legs, dressings intact. b/l leg x rays negative for osteo, doppler negative as well. wbc 4.9. CXR negative. ID consulted for alternative agent due to increased K+. She denies abd pain, no n/v/d. no cp, sob, cough. Allergies Allergy/AdvReac Type Severity Reaction Status Date / Time sulfamethoxazole AdvReac Intermediate hyperkalemi Verified 06/05/19 21:43 [From Bactrim] a trimethoprim [From Bactrim] AdvReac Intermediate hyperkalemi Verified 06/05/19 21:43 a Home Medications Home Medications Medication Instructions Recorded Confirmed Type apixaban 5 mg tablet 5 mg PO BID 02/22/18 06/05/19 History aspirin 81 mg chewable tablet 81 mg PO QAM 02/22/18 06/05/19 History carvedilol 6.25 mg tablet 6.25 mg PO BID 02/22/18 06/05/19 History cholecalciferol (vitamin D3) 50 2,000 units PO QAM 02/22/18 06/05/19 History mcg (2,000 unit) capsule digoxin 125 mcg (0.125 mg) tablet 0.125 mg PO Q2D 02/22/18 06/05/19 History ferrous sulfate 325 mg (65 mg 325 mg PO BIDM tab 02/22/18 06/05/19 History iron) tablet,delayed release furosemide 40 mg tablet 40 mg PO QAM 02/22/18 06/05/19 History gabapentin 100 mg capsule 100 mg PO TID cap 02/22/18 06/05/19 History insulin aspar prt-insulin aspart 42 units SQ QDD ml 02/22/18 06/05/19 History 100 unit/mL (70-30) subcutaneous soln insulin aspar prt-insulin aspart 48 units SQ QDB ml 02/22/18 06/05/19 History 100 unit/mL (70-30) subcutaneous soln insulin aspart U-100 100 unit/mL 4 units SQ QDL ml 02/22/18 06/05/19 History (3 mL) subcutaneous pen sennosides 8.6 mg-docusate sodium 1 tab PO BID 02/22/18 06/05/19 History 50 mg tablet simvastatin 20 mg tablet 20 mg PO QPM 02/22/18 06/05/19 History levothyroxine 75 mcg PO DAILYBB 08/30/18 06/05/19 History trazodone 50 mg PO HS 08/30/18 06/05/19 History Zeasorb AF 1 applic TOPICAL DIRECTED 01/25/19 06/05/19 History magnesium hydroxide [Milk of 30 ml PO DAILY PRN 01/25/19 06/05/19 History Magnesia] polyethylene glycol 3350 [Miralax] 17 g PO DAILY PRN 01/25/19 06/05/19 History amiodarone 200 mg tablet 200 mg PO QAM #90 tab 04/13/19 06/05/19 Rx acetaminophen 1,000 mg PO Q6 PRN MDD 3000 05/16/19 06/05/19 History sulfamethoxazole 800 1 tab PO BID #60 tab 05/21/19 06/05/19 Rx mg-trimethoprim 160 mg tablet isosorbide mononitrate 30 mg PO DAILY 06/05/19 06/05/19 History Patient History Medical History A-fib (Chronic) Acquired claw toe of left foot (Acute) Acquired claw toe of right foot (Acute) Acquired hallux valgus of right foot (Acute) Anemia (Chronic) Anemia (Chronic) Atrial fibrillation (Chronic) CHF (congestive heart failure) (Chronic) CHF (congestive heart failure) (Chronic) Chronic venous insufficiency (Chronic) Coronary artery disease (Chronic) Diabetes 1.5, 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 (Acute) Diabetic neuropathy (Chronic) DM type 2 (diabetes mellitus, type 2) (Chronic) Hallux valgus (acquired), left foot (Acute) History of osteomyelitis (Chronic) "R third toe" History of uterine cancer (Chronic) "s/p XRT" HTN (hypertension) (Chronic) Hyperlipidemia (Chronic) Mild intellectual disability (Chronic) Pacemaker (Chronic) Type 2 diabetes mellitus with diabetic peripheral angiopathy without gangrene (Acute) Uterine cancer (Resolved) Surgical History History of amputation of lesser toe of right foot (Chronic) History of amputation of lesser toe of right foot (Acute) History of lumpectomy of left breast (Resolved) History of total bilateral knee replacement (Chronic) S/P cardiac pacemaker procedure (Resolved) S/P cholecystectomy (Chronic) S/P cholecystectomy (Resolved) Status post bilateral knee replacements (Resolved) Status post placement of cardiac pacemaker (Chronic) Family History Mother Pneumonia Social History Preferred Language: Estonian Communication Ability: Effective Visual Impairment: No Limitations 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: Normal Miner Assistant Required: No Beliefs That Will Affect Care: None marital status: Single Current Living Situation: Personal Care Facility Current Living Situation Comment: House of Care Other Information That Helps Us Care for You: No Feels Safe at Home: Yes Safety Concerns: Feels Safe At This Time Smoking Status: Never smoker Second Hand Exposure: No ; Hx Alcohol Use: No Hx Substance Use: No Review of Systems Review of Systems: All systems reviewed & are unremarkable except as noted in HPI & below Physical Exam Constitutional: WD/WN, vitals as above Eyes: PERRL, conjunctivae normal, anicteric sclerae ENMT: external ear and nose normal, oropharynx normal Neck: normal visual inspection Respiratory: normal respiratory effort, lungs clear to auscultation Cardiovascular: Rate/Rhythm: regular rate and regular rhythm Extremities: + pedal edema; no calf tenderness Gastrointestinal (Abdomen): normal bowel sounds, soft, nontender, no hepatosplenomegaly Musculoskeletal: no cyanosis or clubbing, extremities motor strength 5/5 Skin: no rashes, warm and dry + wound (b/l ulcerations unchanged ) Psychiatric: A+Ox3, euthymic affect Results & Data Vital Signs (Past 12 Hours) Vital Signs Temp Pulse Pulse Resp BP BP Pulse Ox 06/06/19 07:04 36.4 C L 60 18 104/57 L 90 06/06/19 02:55 36.7 C 60 16 113/66 93 06/05/19 23:53 36.3 C L 60 20 109/66 94 06/05/19 23:50 60 PG Care Time/CCT Total # of Minutes Spent Total Time Spent with Patient: Total time spent is greater than 50% in coordination of care (as documented) at patient's floor/unit and/or counseling patient: (1) Cellulitis Laterality: unspecified laterality Site of cellulitis: extremity Site of cellulitis of extremity: lower extremity Qualified Code(s): L03.119 - Cellulitis of unspecified part of limb
[2019-06-06] MEDS: HYDROmorphone INJ 0.5 MG/0.5 ML SYR IV PRN (14:13)
[2019-06-06] MEDS: ACETAMINOPHEN 325 MG TAB PO PRN (14:13)
[2019-06-06] MEDS: MICONAZOLE NITRATE POWDER 43 GM EXT SCH ×2 (14:33→20:02)
--- NOTE | 2019-06-06 16:14 | Hospitalist Progress Note ---
Date of Service June 06, 2019 Assessment & Plan (1) Renal failure (ARF), acute on chronic: ARF on CKD, Hyperkalemia Possibly secondary to month-long Bactrim Rx for recurrent LE cellulitis/chronic venous stasis ulcers (MSSA/Sternotrophomonas on wound CS)- appreciate input from Nephrology Bactrim D/umesh ( added to allergy list -to avoid future exposure) treated with -Lasix albumin, regular insulin for hyperkalemia potassium improved to 4.8 follow BMP bilat lower ext cellulitis : chronic Plain Xray shows no evidence of osteomyelytis cont on Zosyn appreciate input from ID pt can be discharge on Omnicef avoid Bactrim ( added to allergy list ) Wound care consult RE follow-up eval for leg wounds/cellulitis ACUTE RENAL FAILURE ON CKD STAGE 4 : Renal failure (ARF), acute on chronic: ckd 4 at baseline w/ creat between 1.6-1.9. presented with creat 2.4, /hyperkalemia appreciate input from Nephrology acue decompensation of chronic diastolic heart failure (EF of 55 % TTE 2019) mild pulm congestion noted gentle diuresis per Nephrology follow PRP chronic respiratory failure on home O2, CAD: status post stenting, hx LBBB, PVD as per records cont out pt meds -Coreg AFib sp PPM, paced rhythm on amiodarone /digoxin on Eliquis HTN, BP stable cont on Coreg/Imdur DM2 insulin requiring, well-controlled as of recent outpatient hemoglobin A1c of 5.28 March 2019 chronic anemia secondary to CKD, hemoglobin at baseline DVT prophylaxis. Eliquis Conditional CODE STATUS (patient okay with CPR; no intubation) Subjective offers no complain no fever or chills no cough or SOB Physical Exam Constitutional: WD/WN, vitals as above Eyes: PERRL, conjunctivae normal, anicteric sclerae ENMT: external ear and nose normal, oropharynx normal Neck: normal visual inspection Respiratory: normal respiratory effort, lungs clear to auscultation Cardiovascular: Rate/Rhythm: regular rate and regular rhythm Extremities: + pedal edema; no calf tenderness Gastrointestinal (Abdomen): normal bowel sounds, soft, nontender, no hepatosplenomegaly Musculoskeletal: no cyanosis or clubbing, extremities motor strength 5/5 Skin: no rashes, warm and dry + wound (b/l ulcerations unchanged ) Psychiatric: A+Ox3, euthymic affect Results & Data Vital Signs (Past 12 Hours) Vital Signs Temp Pulse Resp BP BP Pulse Ox 06/06/19 15:08 36.3 C L 60 20 111/62 93 06/06/19 11:39 36.4 C L 60 20 107/63 93 06/06/19 07:04 36.4 C L 60 18 104/57 L 90
--- NOTE | 2019-06-06 17:44 | Nephrology Consultation ---
Date of Consultation June 06, 2019 Assessment & Plan (1) Renal failure (ARF), acute on chronic: ckd 4 at baseline w/ creat inine 1.6-1.9. prenseting creat 2.4, K 6.5 as OP and high 5's on presentation. also w/ high mag. admission urine sediment bland > no GN, no infection, no inflammation. suspect elevated creat and K d/t bactrim; however concern for HF as well given increased 02 needs, elevated creat, CXR. gentle diuresis; no indication to discuss dialysis at this time -hold bactrim, listed as allergy/intolerance -gentle diuresis as below -daily bmp -avoid nephrotoxins -heart heatlhy diet, low k diet ok/continue -avoid milk of mag at d/c Present on Admission?: Yes (2) CHF (congestive heart failure): gentle diuresis >> lasix 20 mg IV tid Present on Admission?: Yes (3) Cellulitis: bactrim changed to zosyn/omnicef; ID fllowing Present on Admission?: Yes History of Present Illness Reason for Consultation: hyperkalemia, jason on ckd Requesting Physician: Dr Thorpe Attending Physician: Isabelle Hauser MD History of Present Illness 73 y/o F whom I'm asked to see for JASON on CKD 4 and hyperkalemia after I sent her to hospital yesterday to evaluate abnormal labs and increased 02 needs. PMH includes chronic diastolic HF (EF 55% 2018), CAD s/p stents, afib s/p pacer on eliquis, HTN, DM on insulin, CKD 4, PVD, recurrent/chronic cellulitis and chronic venous stasis ulcers. I saw her in ckd clinic yesterday. CKD from cardiorenal syndrome, severe/diffuse ASCVD, frequent/recurrent abtx. Started on bactrim mid april d/t traumatic leg wounds. At CKD clinic yesterday, report to me that pt needing 02nc 24/7 (typically hs only), more sob at times; and severe leg pain. unable to weigh pt (cannot stand). baseline creatinine 1.6-1.9 spring-fall 2018. labs yesterday showed creat 2.3, K 6.5. Personal home care staff reported legs looking worse and that pt MS changed/different (few details on this; not noticeably different MS to me at clinic yesterday). Pt referred to ER d/t abnormal labs. Allergies Allergy/AdvReac Type Severity Reaction Status Date / Time sulfamethoxazole AdvReac Intermediate hyperkalemi Verified 06/05/19 21:43 [From Bactrim] a trimethoprim [From Bactrim] AdvReac Intermediate hyperkalemi Verified 06/05/19 21:43 a Home Medications Home Medications Medication Instructions Recorded Confirmed Type apixaban 5 mg tablet 5 mg PO BID 02/22/18 06/05/19 History aspirin 81 mg chewable tablet 81 mg PO QAM 02/22/18 06/05/19 History carvedilol 6.25 mg tablet 6.25 mg PO BID 02/22/18 06/05/19 History cholecalciferol (vitamin D3) 50 2,000 units PO QAM 02/22/18 06/05/19 History mcg (2,000 unit) capsule digoxin 125 mcg (0.125 mg) tablet 0.125 mg PO Q2D 02/22/18 06/05/19 History ferrous sulfate 325 mg (65 mg 325 mg PO BIDM tab 02/22/18 06/05/19 History iron) tablet,delayed release furosemide 40 mg tablet 40 mg PO QAM 02/22/18 06/05/19 History gabapentin 100 mg capsule 100 mg PO TID cap 02/22/18 06/05/19 History insulin aspar prt-insulin aspart 42 units SQ QDD ml 02/22/18 06/05/19 History 100 unit/mL (70-30) subcutaneous soln insulin aspar prt-insulin aspart 48 units SQ QDB ml 02/22/18 06/05/19 History 100 unit/mL (70-30) subcutaneous soln insulin aspart U-100 100 unit/mL 4 units SQ QDL ml 02/22/18 06/05/19 History (3 mL) subcutaneous pen sennosides 8.6 mg-docusate sodium 1 tab PO BID 02/22/18 06/05/19 History 50 mg tablet simvastatin 20 mg tablet 20 mg PO QPM 02/22/18 06/05/19 History levothyroxine 75 mcg PO DAILYBB 08/30/18 06/05/19 History trazodone 50 mg PO HS 08/30/18 06/05/19 History Zeasorb AF 1 applic TOPICAL DIRECTED 01/25/19 06/05/19 History magnesium hydroxide [Milk of 30 ml PO DAILY PRN 01/25/19 06/05/19 History Magnesia] polyethylene glycol 3350 [Miralax] 17 g PO DAILY PRN 01/25/19 06/05/19 History amiodarone 200 mg tablet 200 mg PO QAM #90 tab 04/13/19 06/05/19 Rx acetaminophen 1,000 mg PO Q6 PRN MDD 3000 05/16/19 06/05/19 History sulfamethoxazole 800 1 tab PO BID #60 tab 05/21/19 06/05/19 Rx mg-trimethoprim 160 mg tablet isosorbide mononitrate 30 mg PO DAILY 06/05/19 06/05/19 History Patient History Medical History A-fib (Chronic) Acquired claw toe of left foot (Acute) Acquired claw toe of right foot (Acute) Acquired hallux valgus of right foot (Acute) Anemia (Chronic) Anemia (Chronic) Atrial fibrillation (Chronic) CHF (congestive heart failure) (Chronic) CHF (congestive heart failure) (Chronic) Chronic venous insufficiency (Chronic) CKD (chronic kidney disease), stage IV Coronary artery disease (Chronic) Diabetes 1.5, 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 (Acute) Diabetic neuropathy (Chronic) DM type 2 (diabetes mellitus, type 2) (Chronic) Hallux valgus (acquired), left foot (Acute) History of osteomyelitis (Chronic) "R third toe" History of uterine cancer (Chronic) "s/p XRT" HTN (hypertension) (Chronic) Hyperlipidemia (Chronic) Mild intellectual disability (Chronic) Pacemaker (Chronic) Type 2 diabetes mellitus with diabetic peripheral angiopathy without gangrene (Acute) Uterine cancer (Resolved) Surgical History History of amputation of lesser toe of right foot (Chronic) History of amputation of lesser toe of right foot (Acute) History of lumpectomy of left breast (Resolved) History of total bilateral knee replacement (Chronic) S/P cardiac pacemaker procedure (Resolved) S/P cholecystectomy (Chronic) S/P cholecystectomy (Resolved) Status post bilateral knee replacements (Resolved) Status post placement of cardiac pacemaker (Chronic) Family History Mother Pneumonia Social History Preferred Language: Occitan Communication Ability: Effective Visual Impairment: No Limitations 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: Normal Clam Shucker Required: No Beliefs That Will Affect Care: None marital status: Current Living Situation: Personal Care Facility Current Living Situation Comment: House of Care Other Information That Helps Us Care for You: No Feels Safe at Home: Yes Safety Concerns: Feels Safe At This Time Smoking Status: Never smoker Second Hand Exposure: No ; Hx Alcohol Use: No Hx Substance Use: No Review of Systems Review of Systems: All systems reviewed & are unremarkable except as noted in HPI & below and Unobtainable due to cognitive status (Limited but not unobtainable d/t cognitive status) Constitutional: + body aches (bl legs) and + fatigue (c/o getting no rest) Respiratory: + dyspnea; no cough and no wheezing Cardiovascular: + edema (ongoing); no chest pain and no orthopnea Gastrointestinal: no abdominal pain, no vomiting and no change in bowel habits Genitourinary: + urinary incontinence (stable chronic); no difficulty urinating Musculoskeletal: + myalgia Integumentary: + non-healing lesions and + skin ulcer Neurologic: + unsteadiness and + generalized weakness Physical Exam Constitutional: well developed, well nourished and + obese; no acute distress (sitting in bed on 02NC 2L) Eyes: EOM intact bilaterally ENMT: Ears: no external ear abnormality Nose: no external nose abnormality Mouth: + dry oral mucous membranes Neck: no nuchal rigidity Respiratory: normal respiratory effort Auscultation: + breath sounds absent (R base), + diminished lung sounds and + crackles (L base) Cardiovascular: Rate/Rhythm: regular rate and regular rhythm Extremities: + edema (2+ BLe indurated) Gastrointestinal (Abdomen): Inspection/Auscultation: normal bowel sounds Percussion/Palpation: abdomen soft; abdomen nontender Skin: no rashes, warm and dry + ulcer (wrapped bl) Neurologic: rueda, limited but fluent speech, no tremor Psychiatric: oriented to self and place, flat affect as at previous Genitourinary: yun present Results & Data Vital Signs (Past 12 Hours) Vital Signs Temp Pulse Resp BP BP Pulse Ox 06/06/19 15:08 36.3 C L 60 20 111/62 93 06/06/19 11:39 36.4 C L 60 20 107/63 93 06/06/19 07:04 36.4 C L 60 18 104/57 L 90 Laboratory Results 06/06/19 08:11 06/06/19 08:11 Diagnostic Findings cxr IMPRESSION: Continued radiographic evidence of congestive failure. BLE dopplers > no DVT BLE tib/fibXR > no osteomeylitis or frx (1) CHF (congestive heart failure) Heart failure chronicity: acute Heart failure type: unspecified Qualified Code(s): I50.9 - Heart failure, unspecified (2) Cellulitis Laterality: unspecified laterality Site of cellulitis: extremity Site of cellulitis of extremity: lower extremity Qualified Code(s): L03.119 - Cellulitis of unspecified part of limb
[2019-06-06] MEDS: TRAZODONE HCL 50 MG TAB PO SCH (20:02)
[2019-06-06] MEDS: APIXABAN 5 MG TABLET PO SCH (20:03)
[2019-06-06] MEDS: SIMVASTATIN 20 MG TAB PO SCH (20:04)
[2019-06-07] MEDS: PIPERACILLIN/TAZOBACTAM 4.5 GM in DEXTROSE 5% 100 ML IV SCH ×3 (06:30→21:05)
[2019-06-07] MEDS: LEVOTHYROXINE SODIUM 75 MCG TABLET PO SCH (06:31)
--- NOTE | 2019-06-07 08:27 | Nephrology Progress Note ---
Date of Service June 07, 2019 Assessment & Plan (1) Renal failure (ARF), acute on chronic: ckd 4 at baseline w/ creat inine 1.6-1.9. presenting creat 2.4, K 6.5 as OP and high 5's on presentation. also w/ high mag. admission urine sediment bland > no GN, no infection, no inflammation. suspect elevated creat and K d/t bactrim; however concern for HFpEF as well given increased 02 needs, elevated creat, CXR. gentle diuresis; no indication to discuss dialysis at this time -hold bactrim, listed now as allergy/intolerance -gentle diuresis as below> I /O net even past 24 hrs and will put on FR 1.5L/d -keep yun for now to ensure neg fluid balance -daily bmp -avoid nephrotoxins -heart heatlhy diet, low k diet ok/continue -avoid milk of mag at d/c (2) CHF (congestive heart failure): gentle diuresis but w/ slight increase in creat will lower to>> lasix 20 mg IV bid for now (3) Cellulitis: bactrim changed to zosyn/omnicef; ID following Subjective slept well; breathing ok; c/o ongoing leg pain where infection is. tolerating yun; no voiding c/o Review of Systems Review of Systems: All systems reviewed & are unremarkable except as noted in HPI & below Physical Exam Constitutional: well developed, well nourished and + obese; no acute distress (sitting in bed on 02NC 2L) Eyes: EOM intact bilaterally ENMT: Ears: no external ear abnormality Nose: no external nose abnormality Mouth: + dry oral mucous membranes Neck: no nuchal rigidity Respiratory: normal respiratory effort Auscultation: + breath sounds absent (L base), + diminished lung sounds and + crackles (R base) Cardiovascular: Rate/Rhythm: regular rate and regular rhythm Extremities: + edema (1+ BLE indurated) Gastrointestinal (Abdomen): Inspection/Auscultation: normal bowel sounds Percussion/Palpation: abdomen soft; abdomen nontender Musculoskeletal: rueda, maneuvers readily for exam Skin: no rashes, warm and dry + ulcer (wrapped bl) Psychiatric: Orientation: alert and oriented x 3 Affect: + flat affect ms at baseline Genitourinary: yun present Results & Data Vital Signs (Past 12 Hours) Vital Signs Temp Pulse Pulse Resp BP BP Pulse Ox 06/07/19 07:55 36.5 C 60 18 112/54 L 94 06/07/19 03:50 36.5 C 60 18 111/68 93 06/07/19 00:00 60 06/06/19 23:40 36.5 C 62 19 109/58 L 92 Laboratory Results 06/07/19 09:11 06/07/19 09:11 (1) CHF (congestive heart failure) Heart failure chronicity: acute Heart failure type: unspecified Qualified Code(s): I50.9 - Heart failure, unspecified (2) Cellulitis Laterality: unspecified laterality Site of cellulitis: extremity Site of cellulitis of extremity: lower extremity Qualified Code(s): L03.119 - Cellulit is of unspecified part of limb
[2019-06-07] MEDS: INSULIN ASPART 100 UNITS/ML 3 ML PEN SC SCH ×4 (08:31→22:08)
[2019-06-07] MEDS: GABAPENTIN 100 MG CAP PO SCH ×3 (08:32→21:06)
[2019-06-07] MEDS: ASPIRIN 81 MG ECTAB PO SCH (08:32)
[2019-06-07] MEDS: carvediloL 6.25 MG TAB PO SCH ×2 (08:32→21:06)
[2019-06-07] MEDS: APIXABAN 5 MG TABLET PO SCH ×2 (08:32→21:06)
[2019-06-07] MEDS: AMIODARONE 200 MG TAB PO SCH (08:32)
[2019-06-07] MEDS: FERROUS SULFATE 325 MG TAB PO SCH ×2 (08:32→17:34)
[2019-06-07] MEDS: ISOSORBIDE MONO EXTENDED REL 30 MG TABCR PO SCH (08:32)
[2019-06-07] MEDS: INSULIN GLARGINE SOLOSTAR 100 UNITS/ML 3 ML PEN SQ SCH (08:33)
[2019-06-07] MEDS: MICONAZOLE NITRATE POWDER 43 GM EXT SCH ×3 (08:33→21:06)
[2019-06-07] MEDS: ACETAMINOPHEN 325 MG TAB PO PRN (08:40)
[2019-06-07] MEDS: FUROSEMIDE 20 MG in SYRINGE 0 ML IV SCH ×2 (08:58→21:06)
[2019-06-07] MEDS: DOCUSATE SODIUM/SENNA 50/8.6MG TAB PO SCH ×2 (08:58→21:06)
[2019-06-07] MEDS: HYDROmorphone INJ 0.5 MG/0.5 ML SYR IV PRN (08:58)
--- NOTE | 2019-06-07 09:41 | Hospitalist Progress Note ---
Date of Service June 07, 2019 Assessment & Plan (1) Renal failure (ARF), acute on chronic: ARF on CKD, Hyperkalemia Possibly secondary to month-long Bactrim Rx for recurrent LE cellulitis/chronic venous stasis ulcers (MSSA/Sternotrophomonas on wound CS)- appreciate input from Nephrology Bactrim D/umesh ( added to allergy list -to avoid future exposure) treated with -Lasix albumin, regular insulin for hyperkalemia K level improved cont to monitor labs bilat lower ext cellulitis : chronic Plain Xray shows no evidence of osteomyelitis cont on Zosyn appreciate input from ID pt can be discharge on Omnicef avoid Bactrim ( added to allergy list ) Wound care consult RE follow-up eval for leg wounds/cellulitis ACUTE RENAL FAILURE ON CKD STAGE 4 : Renal failure (ARF), acute on chronic: ckd 4 at baseline w/ creat between 1.6-1.9. Cr remains elevated 2.58 acue decompensation of chronic diastolic heart failure (EF of 55 % TTE 2019) mild pulm congestion noted gentle diuresis per Nephrology follow PRP chronic respiratory failure on home O2, CAD: status post stenting, hx LBBB, PVD as per records cont out pt meds -Coreg AFib sp PPM, paced rhythm on amiodarone /digoxin on Eliquis HTN, BP stable cont on Coreg/Imdur DM2 insulin requiring, well-controlled as of recent outpatient hemoglobin A1c of 5.28 March 2019 chronic anemia secondary to CKD, hemoglobin at baseline DVT prophylaxis. Eliquis Conditional CODE STATUS (patient okay with CPR; no intubation) DISPOSITION : was at personal long term will possibly need skill rehab on discharge social service following for dc planning Subjective more tired and somnolent today offers no complain afebrile no cough no sign distress Physical Exam Constitutional: WD/WN, vitals as above Eyes: PERRL, conjunctivae normal, anicteric sclerae ENMT: external ear and nose normal, oropharynx normal Neck: normal visual inspection Respiratory: normal respiratory effort, lungs clear to auscultation Cardiovascular: Rate/Rhythm: regular rate and regular rhythm Extremities: + pedal edema; no calf tenderness Gastrointestinal (Abdomen): normal bowel sounds, soft, nontender, no hepatosplenomegaly Musculoskeletal: no cyanosis or clubbing, extremities motor strength 5/5 Skin: no rashes, warm and dry + wound (b/l ulcerations unchanged ) Psychiatric: A+Ox3, euthymic affect Results & Data Vital Signs (Past 12 Hours) Vital Signs Temp Pulse Pulse Resp BP BP Pulse Ox 06/07/19 07:55 36.5 C 60 18 112/54 L 94 06/07/19 03:50 36.5 C 60 18 111/68 93 06/07/19 00:00 60 06/06/19 23:40 36.5 C 62 19 109/58 L 92
[2019-06-07 09:43] LABS: Hematocrit (blood only) 31.3 % (37-47); Hemoglobin 8.9 g/dL (12.0-16.0); Mean Corpuscular Hemoglobin 27.6 pg (25-34); Mean Corpuscular Hgb Conc 28.4 g/dL (32-36); Mean Corpuscular Volume 96.9 fL (80-100); Mean Platelet Volume 8.5 fL (7.4-10.4); Platelet Count 150 K/uL (130-400); RDW Coefficient of Variation 20.5 % (11.5-14.5); RDW Standard Deviation 72.1 fL (36.4-46.3); Red Blood Count 3.23 M/uL (4.2-5.4); White Blood Count 5.53 K/uL (4.8-10.8)
[2019-06-07 09:57] LABS: BUN Creatinine Ratio 22.3 (10-20); Calcium 8.6 mg/dl (8.5-10.1); Creatinine Clr Calc Pharmacy 21.5 ml/min; Est GFR (African American) 20.3; Est GFR (Non-African American) 17.5; Potassium 4.2 mmol/L (3.5-5.1)
--- NOTE | 2019-06-07 14:10 | Wound Consultation ---
Date of Consultation June 07, 2019 Assessment & Plan (1) Venous ulcers of both lower extremities: This is a 73-year-old female with venous stasis ulcers of bilateral lower extremities and underlying cellulitis. Agree with antibiotic changes per infectious disease. Patient was debrided on Tuesday. At this time no debridement is required. Wounds will be dressed with Aquasol AG and Kerlix. We will avoid Tubigrip until heart failure is stable. Thank for limited participate in the care of this patient. Please not hesitate to call with any questions. We will see patient in the office 1 week after discharge. History of Present Illness Reason for Consultation: Bilateral venous stasis ulcers Attending Physician: Isabelle Hauser MD History of Present Illness This is a 73-year-old female known to the wound clinic who is being treated for chronic bilateral venous stasis ulcers. Patient is admitted with acute on chronic renal failure and acute on chronic respiratory failure. Allergies Allergy/AdvReac Type Severity Reaction Status Date / Time sulfamethoxazole AdvReac Intermediate hyperkalemi Verified 06/05/19 21:43 [From Bactrim] a trimethoprim [From Bactrim] AdvReac Intermediate hyperkalemi Verified 06/05/19 21:43 a Home Medications Home Medications Medication Instructions Recorded Confirmed Type apixaban 5 mg tablet 5 mg PO BID 02/22/18 06/05/19 History aspirin 81 mg chewable tablet 81 mg PO QAM 02/22/18 06/05/19 History carvedilol 6.25 mg tablet 6.25 mg PO BID 02/22/18 06/05/19 History cholecalciferol (vitamin D3) 50 2,000 units PO QAM 02/22/18 06/05/19 History mcg (2,000 unit) capsule digoxin 125 mcg (0.125 mg) tablet 0.125 mg PO Q2D 02/22/18 06/05/19 History ferrous sulfate 325 mg (65 mg 325 mg PO BIDM tab 02/22/18 06/05/19 History iron) tablet,delayed release furosemide 40 mg tablet 40 mg PO QAM 02/22/18 06/05/19 History gabapentin 100 mg capsule 100 mg PO TID cap 02/22/18 06/05/19 History insulin aspar prt-insulin aspart 42 units SQ QDD ml 02/22/18 06/05/19 History 100 unit/mL (70-30) subcutaneous soln insulin aspar prt-insulin aspart 48 units SQ QDB ml 02/22/18 06/05/19 History 100 unit/mL (70-30) subcutaneous soln insulin aspart U-100 100 unit/mL 4 units SQ QDL ml 02/22/18 06/05/19 History (3 mL) subcutaneous pen sennosides 8.6 mg-docusate sodium 1 tab PO BID 02/22/18 06/05/19 History 50 mg tablet simvastatin 20 mg tablet 20 mg PO QPM 02/22/18 06/05/19 History levothyroxine 75 mcg PO DAILYBB 08/30/18 06/05/19 History trazodone 50 mg PO HS 08/30/18 06/05/19 History Zeasorb AF 1 applic TOPICAL DIRECTED 01/25/19 06/05/19 History magnesium hydroxide [Milk of 30 ml PO DAILY PRN 01/25/19 06/05/19 History Magnesia] polyethylene glycol 3350 [Miralax] 17 g PO DAILY PRN 01/25/19 06/05/19 History amiodarone 200 mg tablet 200 mg PO QAM #90 tab 04/13/19 06/05/19 Rx acetaminophen 1,000 mg PO Q6 PRN MDD 3000 05/16/19 06/05/19 History sulfamethoxazole 800 1 tab PO BID #60 tab 05/21/19 06/05/19 Rx mg-trimethoprim 160 mg tablet isosorbide mononitrate 30 mg PO DAILY 06/05/19 06/05/19 History Patient History Medical History A-fib (Chronic) Acquired claw toe of left foot (Acute) Acquired claw toe of right foot (Acute) Acquired hallux valgus of right foot (Acute) Anemia (Chronic) Anemia (Chronic) Atrial fibrillation (Chronic) CHF (congestive heart failure) (Chronic) CHF (congestive heart failure) (Chronic) Chronic venous insufficiency (Chronic) CKD (chronic kidney disease), stage IV Coronary artery disease (Chronic) Diabetes 1.5, 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 (Acute) Diabetic neuropathy (Chronic) DM type 2 (diabetes mellitus, type 2) (Chronic) Hallux valgus (acquired), left foot (Acute) History of osteomyelitis (Chronic) "R third toe" History of uterine cancer (Chronic) "s/p XRT" HTN (hypertension) (Chronic) Hyperlipidemia (Chronic) Mild intellectual disability (Chronic) Pacemaker (Chronic) Type 2 diabetes mellitus with diabetic peripheral angiopathy without gangrene (Acute) Uterine cancer (Resolved) Surgical History History of amputation of lesser toe of right foot (Chronic) History of amputation of lesser toe of right foot (Acute) History of lumpectomy of left breast (Resolved) History of total bilateral knee replacement (Chronic) S/P cardiac pacemaker procedure (Resolved) S/P cholecystectomy (Chronic) S/P cholecystectomy (Resolved) Status post bilateral knee replacements (Resolved) Status post placement of cardiac pacemaker (Chronic) Family History Mother Pneumonia Social History Preferred Language: Amharic Communication Ability: Effective Visual Impairment: No Limitations 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: Normal Pedicab Driver Required: No Beliefs That Will Affect Care: None marital status: Current Living Situation: Personal Care Facility Current Living Situation Comment: House of Care Other Information That Helps Us Care for You: No Feels Safe at Home: Yes Safety Concerns: Feels Safe At This Time Smoking Status: Never smoker Second Hand Exposure: No ; Hx Alcohol Use: No Hx Substance Use: No Review of Systems Review of Systems: All systems reviewed & are unremarkable except as noted in HPI & below Patient is lethargic but does not have any complaints well gone through 10 point review of systems. Physical Exam Constitutional: + ill appearing and + obese Eyes: PERRL, conjunctivae normal, anicteric sclerae Skin: Wounds measuring as recorded in nursing documentation. They are covered with fibrin and slough. Periwound is intact with erythema. There is moderate drainage no foul odor. Neurologic: awake (drowsy); not confused Psychiatric: Orientation: oriented to person and cooperative Results & Data Vital Signs (Past 12 Hours) Vital Signs Temp Pulse Resp BP BP Pulse Ox 06/07/19 11:45 36.4 C L 64 18 131/56 L 97 06/07/19 07:55 36.5 C 60 18 112/54 L 94 06/07/19 03:50 36.5 C 60 18 111/68 93 PG Care Time/CCT Total # of Minutes Spent Total Time Spent with Patient: Total time spent is greater than 50% in coordination of care (as documented) at patient's floor/unit and/or counseling patient:
[2019-06-07] MEDS: DIGOXIN 0.125 MG TAB PO SCH (17:31)
[2019-06-07] MEDS: SIMVASTATIN 20 MG TAB PO SCH (21:06)
[2019-06-07] MEDS: TRAZODONE HCL 50 MG TAB PO SCH (21:06)
[2019-06-08] MEDS: LEVOTHYROXINE SODIUM 75 MCG TABLET PO SCH (06:06)
[2019-06-08] MEDS: PIPERACILLIN/TAZOBACTAM 4.5 GM in DEXTROSE 5% 100 ML IV SCH ×3 (06:06→21:50)
[2019-06-08] MEDS: INSULIN ASPART 100 UNITS/ML 3 ML PEN SC SCH ×4 (08:11→21:59)
[2019-06-08] MEDS: FERROUS SULFATE 325 MG TAB PO SCH ×2 (08:12→17:40)
[2019-06-08] MEDS: GABAPENTIN 100 MG CAP PO SCH ×3 (08:15→21:01)
[2019-06-08] MEDS: AMIODARONE 200 MG TAB PO SCH (08:15)
[2019-06-08] MEDS: ASPIRIN 81 MG ECTAB PO SCH (08:15)
[2019-06-08] MEDS: MICONAZOLE NITRATE POWDER 43 GM EXT SCH ×3 (08:17→21:02)
[2019-06-08] MEDS: carvediloL 6.25 MG TAB PO SCH ×2 (08:17→21:01)
[2019-06-08] MEDS: ISOSORBIDE MONO EXTENDED REL 30 MG TABCR PO SCH (08:17)
[2019-06-08] MEDS: APIXABAN 5 MG TABLET PO SCH ×2 (08:17→21:01)
[2019-06-08] MEDS: INSULIN GLARGINE SOLOSTAR 100 UNITS/ML 3 ML PEN SQ SCH (08:18)
[2019-06-08 08:50] LABS: Creatinine Clr Calc Pharmacy 20.8 ml/min; Est GFR (African American) 19.6; Est GFR (Non-African American) 16.9; Potassium 4.1 mmol/L (3.5-5.1)
[2019-06-08] MEDS: DOCUSATE SODIUM/SENNA 50/8.6MG TAB PO SCH ×2 (10:48→21:27)
[2019-06-08] MEDS: FUROSEMIDE 20 MG in SYRINGE 0 ML IV SCH ×2 (10:49→21:27)
[2019-06-08] MEDS: TRAMADOL HCL 50 MG TABLET PO PRN ×2 (15:46→23:28)
--- NOTE | 2019-06-08 16:54 | Hospitalist Progress Note ---
Date of Service June 08, 2019 Assessment & Plan (1) Renal failure (ARF), acute on chronic: ARF on CKD, Hyperkalemia Possibly secondary to month-long Bactrim Rx for recurrent LE cellulitis/chronic venous stasis ulcers (MSSA/Sternotrophomonas on wound CS)- appreciate input from Nephrology Bactrim D/umesh ( added to allergy list -to avoid future exposure) treated with -Lasix albumin, regular insulin for hyperkalemia K level normalized on low K diet monitor BMP ACUTE RENAL FAILURE ON CKD STAGE 4 : Renal failure (ARF), acute on chronic: ckd 4 at baseline w/ creat between 1.6-1.9. presented with elevated Cr 2.5 has been stable at 2.2 for past few days cont to monitor Neprhology following bilat lower ext cellulitis : chronic Plain Xray shows no evidence of osteomyelitis cont on Zosyn appreciate input from ID pt can be discharge on Omnicef avoid Bactrim ( added to allergy list ) Wound care consulted RE follow-up eval for leg wounds/cellulitis-appreciate input pt had recent debridement of lower ext , no repeat debridement needed cont abx and local wound care -per recommendation acue decompensation of chronic diastolic heart failure (EF of 55 % TTE 2019) pt denies of SOB or Orthopena gentle diuresis per Nephrology monitor vol status chronic respiratory failure on home O2, CAD: status post stenting, hx LBBB, PVD as per records cont out pt meds -Coreg AFib sp PPM, paced rhythm on amiodarone /digoxin on Eliquis HTN, BP stable cont on Coreg/Imdur DM2 insulin requiring, well-controlled as of recent outpatient hemoglobin A1c of 5.28 March 2019 chronic anemia secondary to CKD, baseline hb 8.5-9 cont to monitor DVT prophylaxis. Eliquis Conditional CODE STATUS (patient okay with CPR; no intubation) DISPOSITION : was at personal residential will possibly need skill rehab on discharge /referrral made to [facility] social service following for dc planning Subjective offers no new complain no fever or chills denies of any SOB , no cough Physical Exam Constitutional: WD/WN, vitals as above Eyes: PERRL, conjunctivae normal, anicteric sclerae ENMT: external ear and nose normal, oropharynx normal Neck: normal visual inspection Respiratory: normal respiratory effort, lungs clear to auscultation Cardiovascular: Rate/Rhythm: regular rate and regular rhythm Extremities: + pedal edema; no calf tenderness Gastrointestinal (Abdomen): normal bowel sounds, soft, nontender, no hepatosplenomegaly Musculoskeletal: no cyanosis or clubbing, extremities motor strength 5/5 Skin: no rashes, warm and dry + wound (b/l ulcerations unchanged ) Psychiatric: A+Ox3, euthymic affect Results & Data Vital Signs (Past 12 Hours) Vital Signs Temp Pulse Resp BP Pulse Ox 06/08/19 14:59 36.5 C 62 20 112/64 97 06/08/19 12:07 36.7 C 63 18 107/50 L 91 06/08/19 11:48 36.8 C 66 18 112/50 L 97 06/08/19 08:00 37.1 C 91 H 16 95/52 L 95
--- NOTE | 2019-06-08 17:21 | Nephrology Progress Note ---
Date of Service June 08, 2019 Assessment & Plan (1) Renal failure (ARF), acute on chronic: ckd 4 at baseline w/ creatinine 1.6-1.9. presenting creat 2.4, K 6.5 as OP and high 5's on presentation. also w/ high mag. admission urine sediment bland > no GN, no infection, no inflammation. suspect elevated creat and K d/t bactrim; however concern for HFpEF as well given increased 02 needs, elevated creat, CXR. gentle diuresis; no indication to discuss dialysis at this time -hold bactrim, listed now as allergy/intolerance -gentle diuresis as below> I /O net even past 24 hrs and will put on FR 1.5L/d -keep yun for now to ensure neg fluid balance -daily bmp -avoid nephrotoxins -heart heatlhy diet, low k diet ok/continue -avoid milk of mag at d/c (2) CHF (congestive heart failure): gentle diuresis and w/ recent slight increase in creat will cont lower dose lasix 20 mg IV bid for now (3) Cellulitis: bactrim changed to zosyn/omnicef; ID following Subjective seen on rounds late this afternoon; up in chair; some c/o about food. feels breathing at baseline. legs cont to hurt Review of Systems Review of Systems: All systems reviewed & are unremarkable except as noted in HPI & below Gastrointestinal: + early satiety; no change in bowel habits Genitourinary: tolerating yun Musculoskeletal: + body aches (bl legs) Physical Exam Constitutional: well developed, well nourished and + obese; no acute distress (up in chair on 02NC 2L) Eyes: EOM intact bilaterally ENMT: Ears: no external ear abnormality Nose: no external nose abnormality Mouth: + dry oral mucous membranes Neck: no nuchal rigidity Respiratory: normal respiratory effort Auscultation: + diminished lung sounds and + crackles (BLbases) Cardiovascular: Rate/Rhythm: regular rate and regular rhythm Extremities: + edema (trace - 1+ BLE indurated) Gastrointestinal (Abdomen): Inspection/Auscultation: normal bowel sounds Percussion/Palpation: abdomen soft; abdomen nontender Skin: no rashes, warm and dry + ulcer (wrapped bl) Psychiatric: Orientation: alert and oriented x 3 Affect: + flat affect Results & Data Vital Signs (Past 12 Hours) Vital Signs Temp Pulse Resp BP Pulse Ox 06/08/19 14:59 36.5 C 62 20 112/64 97 06/08/19 12:07 36.7 C 63 18 107/50 L 91 06/08/19 11:48 36.8 C 66 18 112/50 L 97 06/08/19 08:00 37.1 C 91 H 16 95/52 L 95 Laboratory Results 06/08/19 07:47 06/08/19 07:47 (1) CHF (congestive heart failure) Heart failure chronicity: acute Heart failure type: unspecified Qualified Code(s): I50.9 - Heart failure, unspecified (2) Cellulitis Laterality: unspecified laterality Site of cellulitis: extremity Site of cellulitis of extremity: lower extremity Qualified Code(s): L03.119 - Cellul itis of unspecified part of limb
[2019-06-08] MEDS: TRAZODONE HCL 50 MG TAB PO SCH (21:01)
[2019-06-08] MEDS: SIMVASTATIN 20 MG TAB PO SCH (21:03)
[2019-06-09] MEDS: PIPERACILLIN/TAZOBACTAM 4.5 GM in DEXTROSE 5% 100 ML IV SCH ×3 (05:53→22:10)
[2019-06-09] MEDS: LEVOTHYROXINE SODIUM 75 MCG TABLET PO SCH (06:08)
[2019-06-09 06:50] LABS: BUN Creatinine Ratio 19.3 (10-20); Calcium 8.5 mg/dl (8.5-10.1); Creatinine Clr Calc Pharmacy 20.6 ml/min; Est GFR (African American) 19.4; Est GFR (Non-African American) 16.7; Potassium 3.8 mmol/L (3.5-5.1)
[2019-06-09] MEDS: ISOSORBIDE MONO EXTENDED REL 30 MG TABCR PO SCH (08:16)
[2019-06-09] MEDS: carvediloL 6.25 MG TAB PO SCH ×2 (08:16→20:32)
[2019-06-09] MEDS: AMIODARONE 200 MG TAB PO SCH (08:17)
[2019-06-09] MEDS: GABAPENTIN 100 MG CAP PO SCH ×3 (08:17→20:32)
[2019-06-09] MEDS: APIXABAN 5 MG TABLET PO SCH ×2 (08:17→20:33)
[2019-06-09] MEDS: ASPIRIN 81 MG ECTAB PO SCH (08:17)
[2019-06-09] MEDS: FERROUS SULFATE 325 MG TAB PO SCH ×2 (08:18→16:31)
[2019-06-09] MEDS: MICONAZOLE NITRATE POWDER 43 GM EXT SCH ×3 (08:18→20:33)
[2019-06-09] MEDS: INSULIN GLARGINE SOLOSTAR 100 UNITS/ML 3 ML PEN SQ SCH (08:19)
[2019-06-09] MEDS: INSULIN ASPART 100 UNITS/ML 3 ML PEN SC SCH ×4 (08:20→21:18)
[2019-06-09] MEDS: FUROSEMIDE 20 MG in SYRINGE 0 ML IV SCH ×2 (08:27→20:39)
[2019-06-09] MEDS: DOCUSATE SODIUM/SENNA 50/8.6MG TAB PO SCH ×2 (08:27→20:39)
--- NOTE | 2019-06-09 12:23 | Hospitalist Progress Note ---
Date of Service June 09, 2019 Assessment & Plan (1) Renal failure (ARF), acute on chronic: ARF on CKD, Hyperkalemia Possibly secondary to month-long Bactrim Rx for recurrent LE cellulitis/chronic venous stasis ulcers (MSSA/Sternotrophomonas on wound CS)- appreciate input from Nephrology Bactrim D/umesh ( added to allergy list -to avoid future exposure) treated with -Lasix albumin, regular insulin for hyperkalemia K level normalized on low K diet monitor BMP ACUTE RENAL FAILURE ON CKD STAGE 4 : Renal failure (ARF), acute on chronic: ckd 4 at baseline w/ creat between 1.6-1.9. presented with elevated Cr 2.5 appreciate nephrology eval Cr elevated 2.6 today Lasix dose reduced to 20 mg IV BID cont to monitor bilat lower ext cellulitis : chronic Plain Xray shows no evidence of osteomyelitis cont on Zosyn appreciate input from ID pt can be discharge on Omnicef avoid Bactrim ( added to allergy list ) Wound care consulted RE follow-up eval for leg wounds/cellulitis-appreciate input pt had recent debridement of lower ext , no repeat debridement needed cont abx and local wound care -per recommendation acue decompensation of chronic diastolic heart failure (EF of 55 % TTE 2019) pt denies of SOB or Orthopena diuresis per Nephrology monitor vol status chronic respiratory failure on home O2, CAD: status post stenting, hx LBBB, PVD as per records cont out pt meds -Coreg AFib sp PPM, paced rhythm on amiodarone /digoxin on Eliquis HTN, BP stable cont on Coreg/Imdur DM2 insulin requiring, well-controlled as of recent outpatient hemoglobin A1c of 5.28 March 2019 chronic anemia secondary to CKD, baseline hb 8.5-9 cont to monitor DVT prophylaxis. Eliquis Conditional CODE STATUS (patient okay with CPR; no intubation) DISPOSITION : was at personal [facility] will possibly need skill rehab on discharge /referral made to [facility] social service following for dc planning Subjective more tired and sleepy today wakes up to voice offers no complain no respiratory distress no cough or SOB no fever or chills Review of Systems Review of Systems: All systems reviewed & are unremarkable except as noted in HPI & below Physical Exam Constitutional: WD/WN, vitals as above Eyes: PERRL, conjunctivae normal, anicteric sclerae ENMT: external ear and nose normal, oropharynx normal Neck: normal visual inspection Respiratory: normal respiratory effort, lungs clear to auscultation Cardiovascular: Rate/Rhythm: regular rate and regular rhythm Extremities: + pedal edema; no calf tenderness Gastrointestinal (Abdomen): normal bowel sounds, soft, nontender, no hepatosplenomegaly Musculoskeletal: no cyanosis or clubbing, extremities motor strength 5/5 Skin: no rashes, warm and dry + wound (b/l ulcerations unchanged ) Psychiatric: Orientation: alert, oriented to person and oriented to place Results & Data Vital Signs (Past 12 Hours) Vital Signs Temp Pulse Pulse Resp BP Pulse Ox 06/09/19 11:19 36.6 C 59 L 16 117/65 92 06/09/19 07:41 36.5 C 60 16 103/53 L 94 06/09/19 03:00 36.6 C 60 16 108/62 93 06/09/19 01:35 60
[2019-06-09] MEDS: PROMETHAZINE HCL 12.5 MG in SODIUM CHLORIDE 0.9% 50 ML IV PRN (13:11)
[2019-06-09] MEDS: DIGOXIN 0.125 MG TAB PO SCH (16:31)
[2019-06-09] MEDS: TRAZODONE HCL 50 MG TAB PO SCH (20:32)
[2019-06-09] MEDS: SIMVASTATIN 20 MG TAB PO SCH (20:33)
[2019-06-10] MEDS: LEVOTHYROXINE SODIUM 75 MCG TABLET PO SCH (05:49)
[2019-06-10] MEDS: PIPERACILLIN/TAZOBACTAM 4.5 GM in DEXTROSE 5% 100 ML IV SCH (05:49)
[2019-06-10] MEDS: GABAPENTIN 100 MG CAP PO SCH ×3 (08:50→22:07)
[2019-06-10] MEDS: AMIODARONE 200 MG TAB PO SCH (08:50)
[2019-06-10] MEDS: ASPIRIN 81 MG ECTAB PO SCH (08:50)
[2019-06-10] MEDS: FERROUS SULFATE 325 MG TAB PO SCH ×2 (08:51→17:25)
[2019-06-10] MEDS: carvediloL 6.25 MG TAB PO SCH ×2 (08:51→22:07)
[2019-06-10] MEDS: ISOSORBIDE MONO EXTENDED REL 30 MG TABCR PO SCH (08:51)
[2019-06-10] MEDS: APIXABAN 5 MG TABLET PO SCH ×2 (08:52→22:07)
[2019-06-10] MEDS: MICONAZOLE NITRATE POWDER 43 GM EXT SCH ×3 (08:53→22:08)
[2019-06-10] MEDS: INSULIN ASPART 100 UNITS/ML 3 ML PEN SC SCH ×4 (08:54→22:11)
[2019-06-10] MEDS: INSULIN GLARGINE SOLOSTAR 100 UNITS/ML 3 ML PEN SQ SCH (08:54)
[2019-06-10] MEDS: DOCUSATE SODIUM/SENNA 50/8.6MG TAB PO SCH ×2 (08:58→22:11)
[2019-06-10] MEDS: FUROSEMIDE 20 MG in SYRINGE 0 ML IV SCH (08:59)
--- NOTE | 2019-06-10 09:32 | Hospitalist Progress Note ---
Date of Service June 10, 2019 Assessment & Plan (1) Renal failure (ARF), acute on chronic: ARF on CKD, Hyperkalemia Resolved improvement of renal function with resolution of hyperkalemia Possibly secondary to month-long Bactrim Rx for recurrent LE cellulitis/chronic venous stasis ulcers (MSSA/Sternotrophomonas on wound CS)- appreciate input from Nephrology Bactrim D/umesh ( added to allergy list -to avoid future exposure) treated with -Lasix albumin, regular insulin for hyperkalemia Calcium level has been resolved since on low K diet monitor BMP ACUTE RENAL FAILURE ON CKD STAGE 3- 4 : Renal failure (ARF), acute on chronic: ckd 4 at baseline w/ creat between 1.6-1.9. presented with elevated Cr 2.5 appreciate nephrology eval We will change Lasix to p.o. 20 mg twice daily bilat lower ext cellulitis : chronic Plain Xray shows no evidence of osteomyelitis Was treated with IV Zosyn appreciate input from ID Antibiotic is changed to p.o. Omnicef, will need long-term p.o. antibiotic course Added Lactinex avoid Bactrim ( added to allergy list ) Wound care consulted RE follow-up eval for leg wounds/cellulitis-appreciate input pt had recent debridement of lower ext , no repeat debridement needed cont abx and local wound care -per recommendation acue decompensation of chronic diastolic heart failure (EF of 55 % TTE 2019) pt denies of SOB or Orthopena Volume status remains stable, Seems IV Lasix with adequate diuresis Lasix is changed to p.o. today chronic respiratory failure on home O2, CAD: status post stenting, hx LBBB, PVD as per records cont out pt meds -Coreg AFib sp PPM, paced rhythm on amiodarone /digoxin on Eliquis HTN, BP stable cont on Coreg/Imdur DM2 insulin requiring, well-controlled as of recent outpatient hemoglobin A1c of 5.28 March 2019 chronic anemia secondary to CKD, baseline hb 8.5-9 cont to monitor DVT prophylaxis. Eliquis Conditional CODE STATUS (patient okay with CPR; no intubation) DISPOSITION : was at personal [facility] will need skill rehab on discharge /referral made to [facility] Patient is medically stable to transition to rehab /SNF when accepted social service following for dc planning Subjective Patient is sitting up in chair, more awake and alert today, Says she felt nauseous when was trying to eat egg during breakfast, no vomiting No complaint of shortness of breath, no cough no fever or chills Denies of any other discomfort Physical Exam Constitutional: WD/WN, vitals as above Eyes: PERRL, conjunctivae normal, anicteric sclerae ENMT: external ear and nose normal, oropharynx normal Neck: normal visual inspection Respiratory: normal respiratory effort, lungs clear to auscultation Cardiovascular: Rate/Rhythm: regular rate and regular rhythm Extremities: + pedal edema; no calf tenderness Gastrointestinal (Abdomen): normal bowel sounds, soft, nontender, no hepatosplenomegaly Musculoskeletal: no cyanosis or clubbing, extremities motor strength 5/5 Skin: no rashes, warm and dry + wound (Chronic wounds on lower extremity ) Psychiatric: A+Ox3, euthymic affect Orientation: alert, oriented to person and oriented to place Results & Data Vital Signs (Past 12 Hours) Vital Signs Temp Pulse Pulse Resp BP Pulse Ox 06/10/19 07:12 36.9 C 61 16 100/44 L 94 06/10/19 03:11 60 06/10/19 02:54 36.7 C 60 16 125/67 96 06/09/19 23:35 36.7 C 60 16 112/61 91 (1) Renal failure (ARF), acute on chronic Acute renal failure type: unspecified Chronic kidney disease stage: stage 3 (moderate) Qualified Code(s): N17.9 - Acute kidney failure, unspecified; N18.3 - Chronic kidney disease, stage 3 (moderate)
[2019-06-10] MEDS ORDERED: MAGNESIUM HYDROXIDE SUSP 30 ML UDC PO PRN (09:33)
[2019-06-10] MEDS ORDERED: MICONAZOLE NITRATE POWDER 43 GM TOP PRN (09:45)
--- NOTE | 2019-06-10 12:36 | Progress Note ---
DATE: 06/10/2019 SUBJECTIVE: The patient is not a great historian. She did not really answer my question. Denies any shortness of breath. PHYSICAL EXAMINATION: VITAL SIGNS: Most recent vital signs shows blood pressure 100/44, pulse rate 61, temperature 36.9, 94% oxygen saturation on 2 liter nasal cannula. GENERAL: Awake, alert. Cannot really assess for orientation. HEENT: Mucous membranes moist. NECK: Supple. No jugular venous distention. CHEST: Bilateral decreased breath sounds, poor inspiratory effort. CARDIOVASCULAR: S1, S2 regular. EXTREMITIES: Shows 1+ edema. SKIN: No rashes. Warm and dry. She does have some edema. LABORATORY TESTS: Was reviewed from this morning and shows a creatinine of 2.68. It has been fairly stable now for the last few days. Potassium 3.8, sodium 140, BUN 52. ASSESSMENT AND PLAN: Acute renal failure,----acute on chronic. chronic kidney disease IV at baseline with creatinine of around 1.6-1.9. Presenting creatinine was 2.4 with elevated potassium. However, at this time, potassium is completely normal. Continue gentle diuresis as below. However, we really have not actually have significant diuresis. Urine output was 1700 mL yesterday and the day before. Continue Lasix 20 mg IV twice daily. Continue daily labs, make sure she will get labs in the morning. MTDD
[2019-06-10] MEDS: CEFDINIR 300 MG CAP PO SCH (13:55)
[2019-06-10] MEDS: FUROSEMIDE 20 MG TAB PO SCH (17:25)
[2019-06-10] MEDS: PROMETHAZINE HCL 12.5 MG in SODIUM CHLORIDE 0.9% 50 ML IV PRN (21:36)
[2019-06-10] MEDS: SIMVASTATIN 20 MG TAB PO SCH (22:05)
[2019-06-10] MEDS: TRAZODONE HCL 50 MG TAB PO SCH (22:07)
[2019-06-11] MEDS: LEVOTHYROXINE SODIUM 75 MCG TABLET PO SCH (06:14)
[2019-06-11 07:16] LABS: BUN Creatinine Ratio 28.1 (10-20); Calcium 9.1 mg/dl (8.5-10.1); Creatinine Clr Calc Pharmacy 30.8 ml/min; Est GFR (African American) 30.9; Est GFR (Non-African American) 26.7; Potassium 3.6 mmol/L (3.5-5.1)
[2019-06-11] MEDS: APIXABAN 5 MG TABLET PO SCH ×2 (08:23→21:34)
[2019-06-11] MEDS: FUROSEMIDE 20 MG TAB PO SCH ×2 (08:23→17:02)
[2019-06-11] MEDS: GABAPENTIN 100 MG CAP PO SCH ×3 (08:23→21:34)
[2019-06-11] MEDS: ASPIRIN 81 MG ECTAB PO SCH (08:24)
[2019-06-11] MEDS: ISOSORBIDE MONO EXTENDED REL 30 MG TABCR PO SCH (08:24)
[2019-06-11] MEDS: carvediloL 6.25 MG TAB PO SCH ×2 (08:24→21:33)
[2019-06-11] MEDS: FERROUS SULFATE 325 MG TAB PO SCH ×2 (08:25→17:00)
[2019-06-11] MEDS: AMIODARONE 200 MG TAB PO SCH (08:25)
[2019-06-11] MEDS: MICONAZOLE NITRATE POWDER 43 GM EXT SCH ×3 (08:26→21:33)
[2019-06-11] MEDS: INSULIN ASPART 100 UNITS/ML 3 ML PEN SC SCH ×4 (08:28→21:35)
[2019-06-11] MEDS: INSULIN GLARGINE SOLOSTAR 100 UNITS/ML 3 ML PEN SQ SCH (08:28)
[2019-06-11] MEDS: DOCUSATE SODIUM/SENNA 50/8.6MG TAB PO SCH ×2 (08:32→21:45)
[2019-06-11] MEDS: CEFDINIR 300 MG CAP PO SCH (12:51)
[2019-06-11] MEDS: LACTOBACILLUS ACIDOPHILUS (FLORANEX) TAB PO SCH ×3 (12:54→21:34)
--- NOTE | 2019-06-11 14:29 | Hospitalist Progress Note ---
Date of Service June 11, 2019 Assessment & Plan (1) Renal failure (ARF), acute on chronic: ARF on CKD, Hyperkalemia Resolved improvement of renal function with resolution of hyperkalemia Possibly secondary to month-long Bactrim Rx for recurrent LE cellulitis/chronic venous stasis ulcers (MSSA/Sternotrophomonas on wound CS)- appreciate input from Nephrology Bactrim D/umesh ( added to allergy list -to avoid future exposure) treated with -Lasix albumin, regular insulin for hyperkalemia Calcium level has been resolved since on low K diet monitor BMP ACUTE RENAL FAILURE ON CKD STAGE 3- 4 : Renal failure (ARF), acute on chronic: ckd 4 at baseline w/ creat between 1.6-1.9. presented with elevated Cr 2.5 appreciate nephrology eval We will change Lasix to p.o. 20 mg twice daily bilat lower ext cellulitis : chronic Plain Xray shows no evidence of osteomyelitis Was treated with IV Zosyn appreciate input from ID Antibiotic is changed to p.o. Omnicef, will need long-term p.o. antibiotic course Added Lactinex avoid Bactrim ( added to allergy list ) Wound care consulted RE follow-up eval for leg wounds/cellulitis-appreciate input pt had recent debridement of lower ext , no repeat debridement needed cont abx and local wound care -per recommendation acue decompensation of chronic diastolic heart failure (EF of 55 % TTE 2019) pt denies of SOB or Orthopena Volume status remains stable, Seems IV Lasix with adequate diuresis Lasix is changed to p.o. today chronic respiratory failure on home O2, CAD: status post stenting, hx LBBB, PVD as per records cont out pt meds -Coreg AFib sp PPM, paced rhythm on amiodarone /digoxin on Eliquis HTN, BP stable cont on Coreg/Imdur DM2 insulin requiring, well-controlled as of recent outpatient hemoglobin A1c of 5.28 March 2019 chronic anemia secondary to CKD, baseline hb 8.5-9 cont to monitor DVT prophylaxis. Eliquis Conditional CODE STATUS (patient okay with CPR; no intubation) DISPOSITION : was at personal longterm will need skill rehab on discharge /referral made to [facility] Patient is medically stable to transition to rehab /SNF when accepted social service following for dc planning Subjective offers no complain no SOB , no cough or chest discomfort sitting on chair , on chronic 02 Physical Exam Constitutional: WD/WN, vitals as above Eyes: PERRL, conjunctivae normal, anicteric sclerae ENMT: external ear and nose normal, oropharynx normal Neck: normal visual inspection Respiratory: normal respiratory effort, lungs clear to auscultation Cardiovascular: Rate/Rhythm: regular rate and regular rhythm Extremities: + pedal edema; no calf tenderness Gastrointestinal (Abdomen): normal bowel sounds, soft, nontender, no hepatosplenomegaly Musculoskeletal: no cyanosis or clubbing, extremities motor strength 5/5 Skin: no rashes, warm and dry + wound (Chronic wounds on lower extremity ) Psychiatric: A+Ox3, euthymic affect Orientation: alert, oriented to person and oriented to place Results & Data Vital Signs (Past 12 Hours) Vital Signs Temp Pulse Resp BP Pulse Ox 06/11/19 07:00 36.6 C 60 18 134/66 98 (1) Renal failure (ARF), acute on chronic Acute renal failure type: unspecified Chronic kidney disease stage: stage 3 (moderate) Qualified Code(s): N17.9 - Acute kidney failure, unspecified; N18.3 - Chronic kidney disease, stage 3 (moderate)
[2019-06-11] MEDS: DIGOXIN 0.125 MG TAB PO SCH (16:59)
[2019-06-11] MEDS: TRAZODONE HCL 50 MG TAB PO SCH (21:33)
[2019-06-11] MEDS: SIMVASTATIN 20 MG TAB PO SCH (21:34)
[2019-06-12] MEDS: ACETAMINOPHEN 325 MG TAB PO PRN (06:18)
[2019-06-12] MEDS: LEVOTHYROXINE SODIUM 75 MCG TABLET PO SCH (06:18)
--- NOTE | 2019-06-12 07:56 | Discharge Summary ---
Date of Service June 12, 2019 Admission HPI Per Admitting Provider History obtained from patient, personal-mc[facility] visits nurse, and records. History somewhat limited from patient secondary to emotional upset. Medical history significant for chronic respiratory failure on home O2, chronic diastolic heart failure (EF of 55 % TTE 2018), CAD status post stenting, hx LBBB, AFib status post pacemaker on Eliquis, HTN, PVD, DM2 insulin requiring, chronic kidney disease (baseline creatinine 1.9), chronic anemia (baseline hemoglobin of 9), intellectual impairment as per records, recurrent LE cellulitis secondary to chronic venous stasis ulcers currently on Bactrim Rx Recent confinement January 2019 for bilateral lower leg cellulitis. Patient started by ID on Bactrim since last month for traumatic wounds of the legs (cultures growing MSSA and Sternothrophomonas). Patient to follow-up with ID end of the month. Debridement of leg wounds done at wound care center yesterday. As per personal-[facility] visits nurse, leg swelling looking worse. No fever, no chills. Patient [place] [facility] [place], follow-up for CKD. Patient complaining of shortness of breath. Outpatient blood work, chest x-ray requested. Outpatient serum potassium noted to be 6.5, serum creatinine 2.3, serum magnesium 3. Patient directed to the ER by multiple drill operator. MEDICAL HISTORY: As above. SURGERIES: She has had ICD/pacemaker placement, cholecystectomy, arthroplasty, breast cyst removal, toe amputation FAMILY HISTORY: There is a family history of heart disease. PERSONAL AND SOCIAL HISTORY: Nonsmoker, no chronic intake of alcoholic beverages. Lives at a personal [facility]. 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 Discharge Exam Constitutional WD/WN, vitals as above Eyes PERRL, conjunctivae normal, anicteric sclerae ENMT external ear and nose normal, oropharynx normal Neck normal visual inspection Respiratory normal respiratory effort, lungs clear to auscultation Cardiovascular Rate/Rhythm: regular rate and regular rhythm Extremities: + pedal edema; no calf tenderness Gastrointestinal (Abdomen) normal bowel sounds, soft, nontender, no hepatosplenomegaly Musculoskeletal no cyanosis or clubbing, extremities motor strength 5/5 Skin no rashes, warm and dry + wound (Chronic wounds on lower extremity ) Psychiatric A+Ox3, euthymic affect Orientation: alert, oriented to person and oriented to place Discharge Data Allergies Allergy/AdvReac Type Severity Reaction Status Date / Time sulfamethoxazole AdvReac Intermediate hyperkalemi Verified 06/05/19 21:43 [From Bactrim] a trimethoprim [From Bactrim] AdvReac Intermediate hyperkalemi Verified 06/05/19 21:43 a Consultations 06/05/19 20:19 ED Decision to Admit Stat 06/05/19 23:46 Consult Case Management - Discharge Planning Routine Consult Infectious Diseases Routine Consult Nephrology Routine 06/06/19 00:47 Consult Nutrition Routine 06/06/19 00:49 Consult Wound Care Provider Routine Ordered Studies 06/05/19 21:56 US venous doppler LE BI Routine Hospital Course (1) Renal failure (ARF), acute on chronic: ARF on CKD, Hyperkalemia Resolved improvement of renal function with resolution of hyperkalemia Possibly secondary to month-long Bactrim Rx for recurrent LE cellulitis/chronic venous stasis ulcers (MSSA/Sternotrophomonas on wound CS)- appreciate input from Nephrology Bactrim D/umesh ( added to allergy list -to avoid future exposure) treated with -Lasix albumin, regular insulin for hyperkalemia Calcium level has been resolved since on low K diet monitor BMP ACUTE RENAL FAILURE ON CKD STAGE 3- 4 : Renal failure (ARF), acute on chronic: ckd 4 at baseline w/ creat between 1.6-1.9. presented with elevated Cr 2.5 appreciate nephrology eval We will change Lasix to p.o. 20 mg twice daily bilat lower ext cellulitis : chronic Plain Xray shows no evidence of osteomyelitis Was treated with IV Zosyn appreciate input from ID Antibiotic is changed to p.o. Omnicef, will need long-term p.o. antibiotic course Added Lactinex avoid Bactrim ( added to allergy list ) Wound care consulted RE follow-up eval for leg wounds/cellulitis-appreciate input pt had recent debridement of lower ext , no repeat debridement needed cont abx and local wound care -per recommendation acue decompensation of chronic diastolic heart failure (EF of 55 % TTE 2019) pt denies of SOB or Orthopena Volume status remains stable, Seems IV Lasix with adequate diuresis Lasix is changed to p.o. today chronic respiratory failure on home O2, CAD: status post stenting, hx LBBB, PVD as per records cont out pt meds -Coreg AFib sp PPM, paced rhythm on amiodarone /digoxin on Eliquis HTN, BP stable cont on Coreg/Imdur DM2 insulin requiring, well-controlled as of recent outpatient hemoglobin A1c of 5.28 March 2019 chronic anemia secondary to CKD, baseline hb 8.5-9 cont to monitor DVT prophylaxis. Eliquis Conditional CODE STATUS (patient okay with CPR; no intubation) DISPOSITION : was at personal [facility] will need skill rehab on discharge /referral made to [facility] Patient is medically stable to transition to rehab /SNF when accepted social service following for dc planning Discharge Plan Discharge Items Patient Disposition: Transfer Care Home Fac Reason For Visit: PULM CONGESTION, HYPERKALEMIA Discharge Diagnosis: ACUTE RENAL FAILURE /HYPERKALEMIA -RESOLVED , CHRONIC BILATERAL LOWER EXTREMITY WOUND Activity: As commented below Activity Comment: Continue physical therapy, occupational therapy at rehab Non-emergency contact: Primary Care Provider Call non-emergency contact if: you have any medication questions Follow-up/Referrals: Sabina Abel MD, PhD [Physician] - (Follow-up appointment already scheduled in next 4 months) Lola Jean MD [Primary Care Provider] - Diet: Heart Healthy Ambulatory Orders: Basic Metabolic Panel (Routine) Timeframe: 1 Week Location: Determined by Patient Ordered By: Isabelle Silva Attending Provider Instructions: Lab: Basic metabolic panel weekly for next 4 weeks Please fax result of lab report to Dr. Sabina Nova nephrology at [facility] lower extremity Wounds dressing with Aquasol AG and Kerlix.-see wound care instruction Follow-up with wound clinic in a week Continue antibiotic Omnicef 300 mg daily for 2 more weeks Pending Studies at Discharge: Yes Studies:: Lab: Basic metabolic panel weekly for 4 weeks Stand-Alone Forms: My [facility] Skilled Items Patient informed of condition?: Yes DNR: Yes Discharge Level of Care: Skilled Communicable Disease: No Discharge Prognosis: Stable Lines: None Urinary Catheter: No Medications and DC Order Prescriptions: New cefdinir 300 mg Capsule 300 mg PO DAILY 14 Days Qty: 14 RF: 0 Lactinex 100 million cell granules in packet 1 pkt PO TID Qty: 90 RF: 0 Continued apixaban [Eliquis] 5 mg tablet 5 mg PO BID RF: 0 aspirin 81 mg tablet,chewable 81 mg PO QAM RF: 0 carvedilol [Coreg] 6.25 mg tablet 6.25 mg PO BID RF: 0 cholecalciferol (vitamin D3) 2,000 unit capsule 2,000 units PO QAM RF: 0 digoxin 125 mcg tablet 0.125 mg PO Q2D RF: 0 ferrous sulfate 325 mg (65 mg iron) tablet,delayed release (DR/EC) 325 mg PO BIDM RF: 0 insulin asp prt-insulin aspart [Novolog Mix 70-30 U-100 Insuln] 100 unit/mL (70-30) solution 48 units SQ QDB RF: 0 insulin asp prt-insulin aspart [Novolog Mix 70-30 U-100 Insuln] 100 unit/mL (70-30) solution 42 units SQ QDD RF: 0 insulin aspart U-100 [Novolog Flexpen U-100 Insulin] 100 unit/mL insulin pen 4 units SQ QDL RF: 0 sennosides-docusate sodium 8.6-50 mg tablet 1 tab PO BID RF: 0 simvastatin [Zocor] 20 mg tablet 20 mg PO QPM RF: 0 amiodarone 200 mg tablet 200 mg PO QAM Qty: 90 RF: 3 trazodone 50 mg Tablet 50 mg PO HS RF: 0 levothyroxine 75 mcg Tablet 75 mcg PO DAILYBB RF: 0 polyethylene glycol 3350 [Miralax] 17 gram Powder In Packet 17 g PO DAILY PRN (Reason: Constipation) RF: 0 Zeasorb AF 2 % Powder 1 applic TOPICAL DIRECTED RF: 0 magnesium hydroxide [Milk of Magnesia] 400 mg/5 mL Suspension 30 ml PO DAILY PRN (Reason: Constipation) RF: 0 acetaminophen 500 mg Tablet 1,000 mg PO Q6 MDD 3000 PRN (Reason: Pain) RF: 0 isosorbide mononitrate 30 mg Tablet Extended Release 24 Hr 30 mg PO DAILY RF: 0 Changed furosemide 40 mg tablet 20 mg PO BID Qty: 0 RF: 0 gabapentin [Neurontin] 100 mg capsule 100 mg PO BID Qty: 0 RF: 0 Discontinued sulfamethoxazole-trimethoprim [Bactrim DS] 800-160 mg tablet 1 tab PO BID Qty: 60 RF: 0 Discharge Orders: Discharge Order (Routine); Ordered 06/12/19 Ordered By: Isabelle Hauser Admission Data Admit Date/Time: 06/05/19 21:44 Attending Provider: Isabelle Hauser Admit Provider: Mono Ring Primary Care Provider: Lola Jean Other Providers: Mono Ring ; Ferny, ; Angela Valdovinos ; Sabina Abel ; Shabbir Menon
[2019-06-12] MEDS: FUROSEMIDE 20 MG TAB PO SCH ×2 (08:07→17:50)
[2019-06-12] MEDS: carvediloL 6.25 MG TAB PO SCH ×2 (08:07→20:49)
[2019-06-12] MEDS: FERROUS SULFATE 325 MG TAB PO SCH ×2 (08:07→17:50)
[2019-06-12] MEDS: ASPIRIN 81 MG ECTAB PO SCH (08:07)
[2019-06-12] MEDS: ISOSORBIDE MONO EXTENDED REL 30 MG TABCR PO SCH (08:08)
[2019-06-12] MEDS: GABAPENTIN 100 MG CAP PO SCH ×3 (08:08→20:51)
[2019-06-12] MEDS: AMIODARONE 200 MG TAB PO SCH (08:08)
[2019-06-12] MEDS: LACTOBACILLUS ACIDOPHILUS (FLORANEX) TAB PO SCH ×4 (08:08→20:50)
[2019-06-12] MEDS: APIXABAN 5 MG TABLET PO SCH ×2 (08:09→20:50)
[2019-06-12] MEDS: MICONAZOLE NITRATE POWDER 43 GM EXT SCH ×3 (08:09→20:49)
[2019-06-12] MEDS: INSULIN ASPART 100 UNITS/ML 3 ML PEN SC SCH ×4 (08:10→21:18)
[2019-06-12] MEDS: INSULIN GLARGINE SOLOSTAR 100 UNITS/ML 3 ML PEN SQ SCH (08:24)
[2019-06-12] MEDS: DOCUSATE SODIUM/SENNA 50/8.6MG TAB PO SCH ×2 (08:31→21:00)
--- NOTE | 2019-06-12 11:38 | Hospitalist Progress Note ---
Date of Service June 12, 2019 Assessment & Plan (1) Renal failure (ARF), acute on chronic: ARF on CKD, Hyperkalemia renal failure with electrolyte imbalance ( hyperkalemia ) Resolved improvement of renal function with resolution of hyperkalemia Possibly secondary to month-long Bactrim Rx for recurrent LE cellulitis/chronic venous stasis ulcers (MSSA/Sternotrophomonas on wound CS)- appreciate input from Nephrology Bactrim D/umesh ( added to allergy list -to avoid future exposure) treated with -Lasix albumin, regular insulin for hyperkalemia Calcium level has been resolved since on low K diet out patient lab work : Basic metabolic panel every week for X4 weeks results should be faxed to Nephrology Dr Sabina Abel at [facility] ACUTE RENAL FAILURE ON CKD STAGE 3- 4 : Renal failure (ARF), acute on chronic: ckd 4 at baseline w/ creat between 1.6-1.9. presented with elevated Cr 2.5 appreciate nephrology eval on Lasix to p.o. 20 mg twice daily bilat lower ext cellulitis : chronic Plain Xray shows no evidence of osteomyelitis Was treated with IV Zosyn appreciate input from ID Antibiotic is changed to p.o. Omnicef, will need long-term p.o. antibiotic course Added Lactinex avoid Bactrim -hyperkalemia /renal failure ( added to allergy list ) Wound care consulted RE follow-up eval for leg wounds/cellulitis-appreciate input pt had recent debridement of lower ext , no repeat debridement needed cont abx and local wound care -per recommendation acue decompensation of chronic diastolic heart failure (EF of 55 % TTE 2018) resolved pt denies of SOB or Orthopena Volume status remains stable, treated IV Lasix with adequate diuresis Lasix is changed to p.o. chronic respiratory failure on home O2, CAD: status post stenting, hx LBBB, PVD as per records cont out pt meds -Coreg AFib sp PPM, paced rhythm on amiodarone /digoxin on Eliquis HTN, BP stable cont on Coreg/Imdur DM2 insulin requiring, well-controlled as of recent outpatient hemoglobin A1c of 5.28 March 2019 chronic anemia secondary to CKD, baseline hb 8.5-9 cont to monitor DVT prophylaxis. Eliquis Conditional CODE STATUS (patient okay with CPR; no intubation) DISPOSITION : was at personal [facility] will need skill rehab on discharge /referral made to [facility] Patient is medically stable to transition to rehab /SNF when accepted social service following for dc planning Subjective awake and alert today denies of any pain or discomfort no cough /no SOB /no fever or chills Physical Exam Constitutional: WD/WN, vitals as above well developed, well nourished, + ill appearing and + obese; no acute distress (up in chair on 02NC 2L) Eyes: PERRL, conjunctivae normal, anicteric sclerae EOM intact bilaterally ENMT: external ear and nose normal, oropharynx normal Ears: no external ear abnormality Nose: no external nose abnormality Mouth: + dry oral mucous membranes Neck: normal visual inspection; no nuchal rigidity Respiratory: normal respiratory effort, lungs clear to auscultation normal respiratory effort Auscultation: + breath sounds absent (L base), + diminished lung sounds and + crackles (BLbases) Cardiovascular: Rate/Rhythm: regular rate and regular rhythm Extremities: + pedal edema and + edema (trace - 1+ BLE indurated); no calf tenderness Gastrointestinal (Abdomen): normal bowel sounds, soft, nontender, no hepatosplenomegaly Inspection/Auscultation: normal bowel sounds Percussion/Palpation: abdomen soft; abdomen nontender Musculoskeletal: no cyanosis or clubbing, extremities motor strength 5/5 Skin: no rashes, warm and dry + ulcer (wrapped bl) and + wound (Chronic wounds on lower extremity ) Neurologic: awake (drowsy); not confused Psychiatric: A+Ox3, euthymic affect Orientation: alert, oriented x 3, oriented to person, oriented to place and cooperative Affect: + flat affect Results & Data Vital Signs (Past 12 Hours) Vital Signs Temp Pulse Resp BP Pulse Ox 06/12/19 07:19 36.5 C 60 18 106/65 98 (1) Renal failure (ARF), acute on chronic Acute renal failure type: unspecified Chronic kidney disease stage: stage 3 (moderate) Qualified Code(s): N17.9 - Acute kidney failure, unspecified; N18.3 - Chronic kidney disease, stage 3 (moderate)
[2019-06-12] MEDS: CEFDINIR 300 MG CAP PO SCH (14:04)
[2019-06-12] MEDS: TRAZODONE HCL 50 MG TAB PO SCH (20:49)
[2019-06-12] MEDS: SIMVASTATIN 20 MG TAB PO SCH (20:51)
[2019-06-13] MEDS: ACETAMINOPHEN 500 MG TAB PO PRN (04:50)
[2019-06-13] MEDS: LEVOTHYROXINE SODIUM 75 MCG TABLET PO SCH (06:19)
--- NOTE | 2019-06-13 07:27 | Nephrology Progress Note ---
Date of Service June 13, 2019 Assessment & Plan (1) CKD (chronic kidney disease), stage IV: ckd 4 at baseline w/ creatinine 1.6-1.9. presenting creat 2.4, K 6.5 as OP and high 5's on presentation. also w/ high mag. admission urine sediment bland > no GN, no infection, no inflammation. suspect elevated creat and K d/t bactrim; however concern for HFpEF as well given increased 02 needs which have persisted; also HFpEF notable on admission d/t elevated creat, CXR. gentle diuresis; no indication to discuss dialysis at this time -hold bactrim, listed now as allergy/intolerance -gentle diuresis as below> I /O net even past 24 hrs and will put on FR 1.5L/d -keep yun for now to ensure neg fluid balance -daily bmp > at baseline w/ acceptable chemistries -avoid nephrotoxins -heart healthy diet to continue; low K diet could be stopped as long as she is off bactrim -avoid milk of mag at d/c >>>low threshold to repeat hgb soon given that last done 06/09 and downtrending Present on Admission?: Yes (2) CHF (congestive heart failure): gentle diuresis and w/ recent slight increase in creat will cont lower dose lasix 20 mg IV bid for now (3) Cellulitis: bactrim changed to zosyn/omnicef; ID following Subjective no complaints; does not mention her leg pain today. feels breathing and bloat ing at baseline. no N; denies issues voiding Review of Systems Review of Systems: All systems reviewed & are unremarkable except as noted in HPI & below Physical Exam Constitutional: well developed, well nourished and + obese; no acute distress (sitting in bed on 02NC 2L) Eyes: EOM intact bilaterally ENMT: Ears: no external ear abnormality Nose: no external nose abnormality Mouth: + dry oral mucous membranes Neck: no nuchal rigidity Respiratory: normal respiratory effort Auscultation: + diminished lung mirza nds Cardiovascular: Rate/Rhythm: regular rate and regular rhythm Extremities: + edema (trace - 1+ BLE indurated) Gastrointestinal (Abdomen): Inspection/Auscultation: normal bowel sounds Percussion/Palpation: abdomen soft; abdomen nontender Skin: no rashes, warm and dry + ulcer (wrapped bl) Neurologic: rueda, fluent though limited speech, no tremor Psychiatric: Orientation: alert and oriented x 3 Affect: + flat affect Results & Data Vital Signs (Past 12 Hours) Vital Signs Temp Pulse Pulse Resp BP Pulse Ox 06/13/19 07:19 36.4 C L 60 18 121/64 98 06/12/19 23:40 36.4 C L 60 19 112/68 96 Laboratory Results 06/09/19 05:58 06/11/19 06:01 (1) CHF (congestive heart failure) Heart failure chronicity: acute Heart failure type: unspecified Qualified Code(s): I50.9 - Heart failure, unspecified (2) Cellulitis Laterality: unspecified laterality Site of cellulitis: extremity Site of cellulitis of extremity: lower extremity Qualified Code(s): L03.119 - Cellulitis of unspecified part of limb
--- NOTE | 2019-06-13 08:59 | Hospitalist Progress Note ---
Date of Service June 13, 2019 Assessment & Plan (1) Renal failure (ARF), acute on chronic: ARF on CKD, Hyperkalemia renal failure with electrolyte imbalance ( hyperkalemia ) Resolved improvement of renal function with resolution of hyperkalemia, current Cr improved to 1.75 Possibly secondary to month-long Bactrim Rx for recurrent LE cellulitis/chronic venous stasis ulcers (MSSA/Sternotrophomonas on wound CS)- appreciate input from Nephrology Bactrim D/umesh ( added to allergy list -to avoid future exposure) treated with -Lasix albumin, regular insulin for hyperkalemia Calcium level has been resolved since on low K diet - can restart reg. K diet now out patient lab work : Basic metabolic panel every week for X4 weeks results should be faxed to Nephrology Dr Sabina Abel at [facility] ACUTE RENAL FAILURE ON CKD STAGE 3- 4 : Renal failure (ARF), acute on chronic: ckd 4 at baseline w/ creat between 1.6-1.9. presented with elevated Cr 2.5 , current Cr 1.75 appreciate nephrology eval on Lasix to p.o. 20 mg twice daily bilat lower ext cellulitis : chronic Plain Xray shows no evidence of osteomyelitis Was treated with IV Zosyn appreciate input from ID Antibiotic is changed to p.o. Omnicef, will need long-term p.o. antibiotic course Added Lactinex avoid Bactrim -hyperkalemia /renal failure ( added to allergy list ) Wound care consulted RE follow-up eval for leg wounds/cellulitis-appreciate input pt had recent debridement of lower ext , no repeat debridement needed cont abx and local wound care -per recommendation acue decompensation of chronic diastolic heart failure (EF of 55 % TTE 2018) resolved pt denies of SOB or Orthopnea Volume status remains stable, treated IV Lasix with adequate diuresis Lasix is changed to p.o. chronic respiratory failure on home O2, CAD: status post stenting, hx LBBB, PVD as per records cont out pt meds -Coreg AFib sp PPM, paced rhythm on amiodarone /digoxin on Eliquis HTN, BP stable cont on Coreg/Imdur DM2 insulin requiring, well-controlled as of recent outpatient hemoglobin A1c of 5.28 March 2019 Chronic anemia secondary to CKD - baseline hgb 8.5-9 Current hgb 6.9, and on repeat 6.7 - plan to transfuse, consent obtained (will provide iv lasix w/ transfusion) - no s/s of acute bleed - will obtain stool hemoccult - cont to monitor DVT prophylaxis. Eliquis Conditional CODE STATUS (patient okay with CPR; no intubation) DISPOSITION : was at personal snf will need skill rehab on discharge /referral made to [facility] service following for dc planning Subjective Pt is sitting up comfortable in the bed, her nurse and wound nurse present at the bedside. Pt denies any chest pain, shortness of breath, palpitations, dizziness. Also denies fever, chills, abd. pain, nausea, vomiting. Has good PO intake. Hgb <7, consent for blood transfusion obtained, plan to transfuse 1 unit No s/s of bleed Hemoccult ordered Review of Systems Review of Systems: All systems reviewed & are unremarkable except as noted in HPI & below Constitutional: no fever, no chills and no fatigue Respiratory: no cough, no chest congestion and no dyspnea Cardiovascular: no chest pain and no palpitations Gastrointestinal: no abdominal pain, no nausea and no vomiting Physical Exam Physical Exam: Constitutional: Elderly female,sitting up in bed, + ill appearing and + obese; in NAD Eyes: PERRL, EOMI, conjunctivae normal, anicteric sclerae ENMT: external ear and nose normal, oropharynx normal Neck: normal visual inspection; supple, no nuchal rigidity Respiratory: normal respiratory effort, Auscultation: clear to auscult. but + diminished lung sounds and + crackles (BL bases) Cardiovascular: Rate/Rhythm: regular rate and regular rhythm Extremities: + trace pedal edema b/l, +ulcer; no calf tenderness Gastrointestinal (Abdomen): normal bowel sounds, soft, nontender, nondistended, no guarding Musculoskeletal: no cyanosis or clubbing, extremities motor strength 5/5 Skin: no rashes, warm and dry + ulcer (wrapped bl) and + wound (Chronic wounds on lower extremity - image in the chart from this AM) Neurologic: alert, answers questions appropriately Psychiatric: A+Ox3, flat affect, cooperative Results & Data Vital Signs (Past 12 Hours) Vital Signs Temp Pulse Pulse Resp BP Pulse Ox 06/13/19 07:19 36.4 C L 60 18 121/64 98 06/12/19 23:40 36.4 C L 60 19 112/68 96 Laboratory Results 06/13/19 06/13/19 06/13/19 Range/Units 11:31 10:57 10:56 WBC (4.8-10.8) K/uL RBC (4.2-5.4) M/uL Hgb 6.7 L* (12.0-16.0) g/dL Hct 23.8 L (37-47) % MCV (80-100) fL MCH (25-34) pg MCHC (32-36) g/dL RDW Std Deviation (36.4-46.3) fL RDW Coeff of Gerardo (11.5-14.5) % Plt Count (130-400) K/uL MPV (7.4-10.4) fL Sodium (136-145) mmol/L Potassium (3.5-5.1) mmol/L Chloride (98-107) mmol/L Carbon Dioxide (21-32) mmol/L Anion Gap (3-11) BUN (7-18) mg/dl Creatinine (0.6-1.2) mg/dl Est Cr Clr Drug Dosing ml/min Est GFR ( Amer) Est GFR (Non-Af Amer) BUN/Creatinine Ratio (10-20) Glucose (70-99) mg/dl POC Glucose 111 H (70-99) Calcium (8.5-10.1) mg/dl Blood Type Pending Antibody Screen Pending Crossmatch See Detail 06/13/19 06/13/19 06/13/19 Range/Units 09:35 09:35 07:41 WBC 4.90 (4.8-10.8) K/uL RBC 2.55 L (4.2-5.4) M/uL Hgb 6.9 L* (12.0-16.0) g/dL Hct 24.8 L (37-47) % MCV 97.3 (80-100) fL MCH 27.1 (25-34) pg MCHC 27.8 L (32-36) g/dL RDW Std Deviation 72.0 H (36.4-46.3) fL RDW Coeff of Gerardo 20.3 H (11.5-14.5) % Plt Count 143 (130-400) K/uL MPV 8.3 (7.4-10.4) fL Sodium 140 (136-145) mmol/L Potassium 3.5 (3.5-5.1) mmol/L Chloride 100 (98-107) mmol/L Carbon Dioxide 38 H (21-32) mmol/L Anion Gap 2.0 L (3-11) BUN 56 H (7-18) mg/dl Creatinine 1.75 H (0.6-1.2) mg/dl Est Cr Clr Drug Dosing 31.8 ml/min Est GFR ( Amer) 32.4 Est GFR (Non-Af Amer) 28.0 BUN/Creatinine Ratio 31.9 H (10-20) Glucose 90 (70-99) mg/dl POC Glucose 128 H (70-99) Calcium 9.1 (8.5-10.1) mg/dl Blood Type Antibody Screen Crossmatch 06/12/19 06/12/19 06/12/19 Range/Units 20:15 16:27 11:43 WBC (4.8-10.8) K/uL RBC (4.2-5.4) M/uL Hgb (12.0-16.0) g/dL Hct (37-47) % MCV (80-100) fL MCH (25-34) pg MCHC (32-36) g/dL RDW Std Deviation (36.4-46.3) fL RDW Coeff of Gerardo (11.5-14.5) % Plt Count (130-400) K/uL MPV (7.4-10.4) fL Sodium (136-145) mmol/L Potassium (3.5-5.1) mmol/L Chloride (98-107) mmol/L Carbon Dioxide (21-32) mmol/L Anion Gap (3-11) BUN (7-18) mg/dl Creatinine (0.6-1.2) mg/dl Est Cr Clr Drug Dosing ml/min Est GFR ( Amer) Est GFR (Non-Af Amer) BUN/Creatinine Ratio (10-20) Glucose (70-99) mg/dl POC Glucose 139 H 142 H 116 H (70-99) Calcium (8.5-10.1) mg/dl Blood Type Antibody Screen Crossmatch 06/13/19 06/12/19 06/12/19 Range/Units 07:41 20:15 16:27 POC Glucose 128 H 139 H 142 H (70-99) 06/12/19 Range/Units 11:43 POC Glucose 116 H (70-99) Medications Administered Current Inpatient Medications Acetaminophen (Tylenol) 1,000 mg PO Q6 PRN PRN Reason: Pain Stop: 07/10/19 09:32 Last Admin: 06/13/19 04:50 Dose: 1,000 mg Documented by: Amiodarone HCl (Cordar[facility]) [facility] [place]: 07/06/19 08:59 Last Admin: 06/12/19 08:08 Dose: 200 mg Documented by: Apixaban (Eliquis) 5 mg PO BID [facility] Stop: 07/06/19 20:59 Last Admin: 06/12/19 20:50 Dose: 5 mg Documented by: Aspirin (Ecotrin Ectab) [facility] [place]: 07/07/19 08:59 Last Admin: 06/12/19 08:07 Dose: 81 mg Documented by: Carvedilol (Coreg) 6.25 mg PO BID [facility] Stop: 07/06/19 08:59 Last Admin: 06/12/19 20:49 Dose: 6.25 mg Documented by: Cefdinir (Omnicef Cap) 300 mg PO DAILY@1400 [facility] Stop: 06/20/19 13:59 Last Admin: 06/12/19 14:04 Dose: 300 mg Documented by: Dextrose (Dextrose 50%) 25 - 50 ml IV UD PRN; Protocol PRN Reason: Hypoglycemia Protocol Stop: 07/05/19 23:45 Digoxin (Lanoxin) 0.125 mg PO Q2D@1600 [facility] Stop: 07/07/19 15:59 Last Admin: 06/11/19 16:59 Dose: 0.125 mg Documented by: Ferrous Sulfate (Feosol) 325 mg PO BIDM [facility] Stop: 07/06/19 07:59 Last Admin: 06/12/19 17:50 Dose: 325 mg Documented by: Furosemide (Lasix) 20 mg PO BID17 [facility] Stop: 07/10/19 16:59 Last Admin: 06/12/19 17:50 Dose: 20 mg Documented by: Gabapentin (Neurontin) 100 mg PO TID [facility] Stop: 07/06/19 08:59 Last Admin: 06/12/19 20:51 Dose: 100 mg Documented by: Glucagon (Glucagen) 1 mg SQ UD PRN; Protocol PRN Reason: Hypoglycemia Protocol Stop: 07/05/19 23:45 Glucose (Dex4 Glucose) 4 - 8 tabs PO UD PRN; Protocol PRN Reason: Hypoglycemia Protocol Stop: 07/05/19 23:45 Glucose (Glucose 40%) 15 - 30 gm PO UD PRN; Protocol PRN Reason: Hypoglycemia Protocol Stop: 07/05/19 23:45 Promethazine HCl 12.5 mg/ (Sodium Chloride) 50.5 mls @ 202 mls/hr IV Q6H PRN PRN Reason: Nausea And Vomiting Stop: 07/05/19 23:45 Last Infusion: 06/10/19 21:51 Dose: Infused Documented by: Insulin Aspart (Novolog Flexpen) 0 units SC ACHS [facility] Stop: 07/05/19 23:45 Last Admin: 06/12/19 21:18 Dose: Not Given Documented by: Insulin Glargine (Lantus Solostar Pen) 5 units SQ DAILY [facility] Stop: 07/07/19 08:59 Last Admin: 06/12/19 08:24 Dose: 5 units Documented by: Isosorbide Mononitrate (Imdur Extended Rel) 30 mg PO DAILY [facility] Stop: 07/06/19 08:59 Last Admin: 06/12/19 08:08 Dose: 30 mg Documented by: Lactobacillus Acidophilus (Floranex) 4 tab PO QIDM [facility] Stop: 07/11/19 11:59 Last Admin: 06/12/19 20:50 Dose: 4 tab Documented by: Levothyroxine Sodium (Synthroid) 75 mcg PO DAILYBB [facility] Stop: 07/06/19 06:29 Last Admin: 06/13/19 06:19 Dose: 75 mcg Documented by: Magnesium Hydroxide (Milk Of Magnesia) 30 ml PO DAILY PRN PRN Reason: Constipation Stop: 07/10/19 09:32 Miconazole Nitrate (Desenex) 1 appln EXT TID [facility] Stop: 07/06/19 13:59 Last Admin: 06/12/19 20:49 Dose: 1 appln Documented by: Miconazole Nitrate (Desenex) 1 appln TOP PRN PRN PRN Reason: SKIN FOLDS Stop: 07/10/19 09:44 Miscellaneous (Carbohydrates For Hypoglycemia) 15 - 30 gm PO UD PRN PRN Reason: Hypoglycemia Protocol Stop: 07/05/19 23:45 Nitroglycerin (Nitrostat) 0.4 mg SL UD PRN PRN Reason: Chest Pain Stop: 07/05/19 23:45 Polyethylene Glycol (Miralax Powder Packet) 17 gm PO DAILY PRN PRN Reason: Constipation Stop: 07/05/19 23:45 Senna/Docusate Sodium (Senokot S) 1 tab PO BID [facility] Stop: 07/06/19 08:59 Last Admin: 06/12/19 21:00 Dose: 1 tab Documented by: Simvastatin (Zocor) 20 mg PO QPM [facility] Stop: 07/06/19 20:59 Last Admin: 06/12/19 20:51 Dose: 20 mg Documented by: Tramadol HCl (Ultram) 25 - 50 mg PO Q4H PRN PRN Reason: Pain Stop: 07/05/19 23:45 Last Admin: 06/08/19 23:28 Dose: 50 mg Documented by: Trazodone HCl (Desyrel) 50 mg PO HS [facility] Stop: 07/06/19 20:59 Last Admin: 06/12/19 20:49 Dose: 50 mg Documented by: (1) Renal failure (ARF), acute on chronic Acute renal failure type: unspecified Chronic kidney disease stage: stage 3 (moderate) Qualified Code(s): N17.9 - Acute kidney failure, unspecified; N18.3 - Chronic kidney disease, stage 3 (moderate)
[2019-06-13] MEDS: INSULIN ASPART 100 UNITS/ML 3 ML PEN SC SCH ×4 (09:07→21:10)
[2019-06-13] MEDS: INSULIN GLARGINE SOLOSTAR 100 UNITS/ML 3 ML PEN SQ SCH (09:07)
[2019-06-13] MEDS: GABAPENTIN 100 MG CAP PO SCH ×3 (09:08→20:52)
[2019-06-13] MEDS: ISOSORBIDE MONO EXTENDED REL 30 MG TABCR PO SCH (09:08)
[2019-06-13] MEDS: carvediloL 6.25 MG TAB PO SCH ×2 (09:09→20:52)
[2019-06-13] MEDS: FUROSEMIDE 20 MG TAB PO SCH ×2 (09:09→17:16)
[2019-06-13] MEDS: AMIODARONE 200 MG TAB PO SCH (09:09)
[2019-06-13] MEDS: FERROUS SULFATE 325 MG TAB PO SCH ×2 (09:09→17:16)
[2019-06-13] MEDS: ASPIRIN 81 MG ECTAB PO SCH (09:10)
[2019-06-13] MEDS: LACTOBACILLUS ACIDOPHILUS (FLORANEX) TAB PO SCH ×4 (09:10→20:51)
[2019-06-13] MEDS: MICONAZOLE NITRATE POWDER 43 GM EXT SCH ×3 (09:11→20:51)
[2019-06-13 10:13] LABS: Hematocrit (blood only) 24.8 % (37-47); Hemoglobin 6.9 g/dL (12.0-16.0); Mean Corpuscular Hemoglobin 27.1 pg (25-34); Mean Corpuscular Hgb Conc 27.8 g/dL (32-36); Mean Corpuscular Volume 97.3 fL (80-100); Mean Platelet Volume 8.3 fL (7.4-10.4); Platelet Count 143 K/uL (130-400); RDW Coefficient of Variation 20.3 % (11.5-14.5); Red Blood Count 2.55 M/uL (4.2-5.4)
[2019-06-13 10:18] LABS: BUN Creatinine Ratio 31.9 (10-20); Calcium 9.1 mg/dl (8.5-10.1); Creatinine Clr Calc Pharmacy 31.8 ml/min; Est GFR (African American) 32.4; Potassium 3.5 mmol/L (3.5-5.1)
[2019-06-13] MEDS: APIXABAN 5 MG TABLET PO SCH ×2 (10:29→20:53)
[2019-06-13] MEDS ORDERED: SODIUM CHLORIDE 0.9% 250 ML IV PRN ×2 (10:36→11:34)
[2019-06-13 11:28] LABS: Hematocrit (blood only) 23.8 % (37-47); Hemoglobin 6.7 g/dL (12.0-16.0)
[2019-06-13] MEDS: DOCUSATE SODIUM/SENNA 50/8.6MG TAB PO SCH ×2 (11:39→20:55)
[2019-06-13] MEDS ORDERED: FUROSEMIDE 20 MG in SYRINGE 0 ML IV ONE (12:00)
[2019-06-13] MEDS: CEFDINIR 300 MG CAP PO SCH (12:53)
[2019-06-13] MEDS: DIGOXIN 0.125 MG TAB PO SCH (17:15)
[2019-06-13] MEDS: TRAZODONE HCL 50 MG TAB PO SCH (20:52)
[2019-06-13] MEDS: SIMVASTATIN 20 MG TAB PO SCH (20:53)
[2019-06-13] MEDS: POLYETHYLENE (MIRALAX) 17 GM PACK PO PRN (20:57)
[2019-06-13] MEDS ORDERED: POLYETHYLENE (MIRALAX) 17 GM PACK PO PRN (22:51)
[2019-06-14] MEDS: LEVOTHYROXINE SODIUM 75 MCG TABLET PO SCH (06:28)
[2019-06-14 07:03] LABS: Hematocrit (blood only) 27.7 % (37-47); Mean Corpuscular Hemoglobin 27.8 pg (25-34); Mean Corpuscular Hgb Conc 28.9 g/dL (32-36); Mean Corpuscular Volume 96.2 fL (80-100); Mean Platelet Volume 8.4 fL (7.4-10.4); Platelet Count 160 K/uL (130-400); RDW Coefficient of Variation 20.1 % (11.5-14.5); RDW Standard Deviation 69.9 fL (36.4-46.3); Red Blood Count 2.88 M/uL (4.2-5.4); White Blood Count 4.59 K/uL (4.8-10.8)
[2019-06-14 07:29] LABS: Calcium 9.2 mg/dl (8.5-10.1); Creatinine Clr Calc Pharmacy 37.8 ml/min; Est GFR (African American) 39.4; Potassium 3.6 mmol/L (3.5-5.1)
--- NOTE | 2019-06-14 08:17 | Hospitalist Progress Note ---
Date of Service June 14, 2019 Assessment & Plan (1) Renal failure (ARF), acute on chronic: ARF on CKD, Hyperkalemia renal failure with electrolyte imbalance ( hyperkalemia ) Resolved improvement of renal function with resolution of hyperkalemia, current Cr improved to 1.49 Possibly secondary to month-long Bactrim Rx for recurrent LE cellulitis/chronic venous stasis ulcers (MSSA/Sternotrophomonas on wound CS)- appreciate input from Nephrology Bactrim D/umesh ( added to allergy list -to avoid future exposure) treated with -Lasix albumin, regular insulin for hyperkalemia Calcium level has been resolved since Restarted reg. K diet yesterday 06/13 out patient lab work : Basic metabolic panel every week for X4 weeks results should be faxed to Nephrology Dr Sabina Abel at [facility] ACUTE RENAL FAILURE ON CKD STAGE 3- 4 : Renal failure (ARF), acute on chronic: ckd 4 at baseline w/ creat between 1.6-1.9. presented with elevated Cr 2.5 , current Cr 1.49 appreciate nephrology eval on Lasix to p.o. 20 mg twice daily (received 20 mg IV lasix w/ blood transfusion yesterday 06/13) bilat lower ext cellulitis : chronic Plain Xray shows no evidence of osteomyelitis Was treated with IV Zosyn appreciate input from ID Antibiotic is changed to p.o. Omnicef, will need long-term p.o. antibiotic course Added Lactinex avoid Bactrim -hyperkalemia /renal failure ( added to allergy list ) Wound care consulted RE follow-up eval for leg wounds/cellulitis-appreciate input pt had recent debridement of lower ext , no repeat debridement needed cont abx and local wound care -per recommendation Acue decompensation of chronic diastolic heart failure (EF of 55 % TTE 2018) resolved pt denies of SOB or Orthopnea Volume status remains stable, treated IV Lasix with adequate diuresis Lasix is changed to p.o. chronic respiratory failure on home O2, CAD: status post stenting, hx LBBB, PVD as per records cont out pt meds -Coreg AFib sp PPM, paced rhythm on amiodarone /digoxin on Eliquis HTN, BP stable cont on Coreg/Imdur DM2 insulin requiring, well-controlled as of recent outpatient hemoglobin A1c of 5.28 March 2019 Chronic anemia secondary to CKD - baseline hgb 8.5-9 On 06/13, Hgb 6.9, and on repeat 6.7 - s/p transfusion of 1 unit of pRBC, consent obtained (provided iv lasix w/ transfusion) - no s/s of acute bleed - will obtain stool hemoccult - cont to monitor, current Hgb 8.0 DVT prophylaxis. Eliquis Conditional CODE STATUS (patient okay with CPR; no intubation) DISPOSITION : was at personal shelter will need skill rehab on discharge /referral made to [facility] social service following for dc planning Subjective No acute events overnight. Patient sitting up in bed, comfortable, in no acute distress watching TV. Denies any fevers, chills, chest pain, palpitations, lightheadedness or dizziness. Says she uses suppl. oxygen as needed at home/when not in the hospital. Denies any abdominal pain, nausea or vomiting. Hgb 8.0 this AM (status post blood transfusion, 1 unit of PRBCs yesterday), tolerated without any complications. Cr improved 1.49 (baseline creatinine 1.6-1.9) Review of Systems Review of Systems: All systems reviewed & are unremarkable except as noted in HPI & below Constitutional: no fever and no chills Respiratory: no cough and no dyspnea Cardiovascular: no chest pain, no dyspnea on exertion and no palpitations Gastrointestinal: no abdominal pain, no nausea and no vomiting Physical Exam Physical Exam: Constitutional: Elderly female,sitting up in bed, + obese; in NAD Eyes: PERRL, EOMI, conjunctivae normal, anicteric sclerae ENMT: external ear and nose normal, oropharynx normal Neck: normal visual inspection; supple, no nuchal rigidity Respiratory: normal respiratory effort, clear to auscult. but + diminished lung sounds and + mild crackles (BL bases) Cardiovascular: Rate/Rhythm: regular rate and regular rhythm Extremities: + trace pedal edema b/l, +ulcer; no calf tenderness Gastrointestinal (Abdomen): normal bowel sounds, soft, nontender, nondistended, no guarding Musculoskeletal: no cyanosis or clubbing, extremities motor strength 5/5 Skin: no rashes, warm and dry + ulcer (wrapped bl) and + wound (Chronic wounds on lower extremity - image in the chart from 06/13 AM) Neurologic: alert, answers questions appropriately Psychiatric: A+Ox3, flat affect, cooperative Results & Data Vital Signs (Past 12 Hours) Vital Signs Temp Pulse Resp BP Pulse Ox 06/14/19 07:29 36.5 C 58 L 16 106/66 96 06/14/19 01:46 36.4 C L 59 L 17 124/71 98 Laboratory Results 06/14/19 06/14/19 06/14/19 Range/Units 07:36 06:15 06:15 WBC 4.59 L (4.8-10.8) K/uL RBC 2.88 L (4.2-5.4) M/uL Hgb 8.0 L (12.0-16.0) g/dL Hct 27.7 L (37-47) % MCV 96.2 (80-100) fL MCH 27.8 (25-34) pg MCHC 28.9 L (32-36) g/dL RDW Std Deviation 69.9 H (36.4-46.3) fL RDW Coeff of Gerardo 20.1 H (11.5-14.5) % Plt Count 160 (130-400) K/uL MPV 8.4 (7.4-10.4) fL Sodium 141 (136-145) mmol/L Potassium 3.6 (3.5-5.1) mmol/L Chloride 101 (98-107) mmol/L Carbon Dioxide 37 H (21-32) mmol/L Anion Gap 3.0 (3-11) BUN 51 H (7-18) mg/dl Creatinine 1.49 H (0.6-1.2) mg/dl Est Cr Clr Drug Dosing 37.8 ml/min Est GFR ( Amer) 39.4 Est GFR (Non-Af Amer) 34.0 BUN/Creatinine Ratio 34.0 H (10-20) Glucose 79 (70-99) mg/dl POC Glucose 89 (70-99) Calcium 9.2 (8.5-10.1) mg/dl Blood Type Blood Type Recheck Antibody Screen Crossmatch 06/13/19 06/13/19 06/13/19 Range/Units 20:41 16:44 11:31 WBC (4.8-10.8) K/uL RBC (4.2-5.4) M/uL Hgb (12.0-16.0) g/dL Hct (37-47) % MCV (80-100) fL MCH (25-34) pg MCHC (32-36) g/dL RDW Std Deviation (36.4-46.3) fL RDW Coeff of Gerardo (11.5-14.5) % Plt Count (130-400) K/uL MPV (7.4-10.4) fL Sodium (136-145) mmol/L Potassium (3.5-5.1) mmol/L Chloride (98-107) mmol/L Carbon Dioxide (21-32) mmol/L Anion Gap (3-11) BUN (7-18) mg/dl Creatinine (0.6-1.2) mg/dl Est Cr Clr Drug Dosing ml/min Est GFR ( Amer) Est GFR (Non-Af Amer) BUN/Creatinine Ratio (10-20) Glucose (70-99) mg/dl POC Glucose 172 H 135 H 111 H (70-99) Calcium (8.5-10.1) mg/dl Blood Type Blood Type Recheck Antibody Screen Crossmatch 06/13/19 06/13/19 06/13/19 Range/Units 10:57 10:56 09:35 WBC (4.8-10.8) K/uL RBC (4.2-5.4) M/uL Hgb 6.7 L* (12.0-16.0) g/dL Hct 23.8 L (37-47) % MCV (80-100) fL MCH (25-34) pg MCHC (32-36) g/dL RDW Std Deviation (36.4-46.3) fL RDW Coeff of Gerardo (11.5-14.5) % Plt Count (130-400) K/uL MPV (7.4-10.4) fL Sodium (136-145) mmol/L Potassium (3.5-5.1) mmol/L Chloride (98-107) mmol/L Carbon Dioxide (21-32) mmol/L Anion Gap (3-11) BUN (7-18) mg/dl Creatinine (0.6-1.2) mg/dl Est Cr Clr Drug Dosing ml/min Est GFR ( Amer) Est GFR (Non-Af Amer) BUN/Creatinine Ratio (10-20) Glucose (70-99) mg/dl POC Glucose (70-99) Calcium (8.5-10.1) mg/dl Blood Type A Positive Blood Type Recheck A Positive Antibody Screen NEGATIVE Crossmatch See Detail 06/13/19 06/13/19 Range/Units 09:35 09:35 WBC 4.90 (4.8-10.8) K/uL RBC 2.55 L (4.2-5.4) M/uL Hgb 6.9 L* (12.0-16.0) g/dL Hct 24.8 L (37-47) % MCV 97.3 (80-100) fL MCH 27.1 (25-34) pg MCHC 27.8 L (32-36) g/dL RDW Std Deviation 72.0 H (36.4-46.3) fL RDW Coeff of Gerardo 20.3 H (11.5-14.5) % Plt Count 143 (130-400) K/uL MPV 8.3 (7.4-10.4) fL Sodium 140 (136-145) mmol/L Potassium 3.5 (3.5-5.1) mmol/L Chloride 100 (98-107) mmol/L Carbon Dioxide 38 H (21-32) mmol/L Anion Gap 2.0 L (3-11) BUN 56 H (7-18) mg/dl Creatinine 1.75 H (0.6-1.2) mg/dl Est Cr Clr Drug Dosing 31.8 ml/min Est GFR ( Amer) 32.4 Est GFR (Non-Af Amer) 28.0 BUN/Creatinine Ratio 31.9 H (10-20) Glucose 90 (70-99) mg/dl POC Glucose (70-99) Calcium 9.1 (8.5-10.1) mg/dl Blood Type Blood Type Recheck Antibody Screen Crossmatch Medications Administered Current Inpatient Medications Acetaminophen (Tylenol) 1,000 mg PO Q6 PRN PRN Reason: Pain Stop: 07/10/19 09:32 Last Admin: 06/13/19 04:50 Dose: 1,000 mg Documented by: Amiodarone HCl (Cordarone) 200 mg PO QAM COUNT INCLUDES THE [facility] Stop: 07/06/19 08:59 Last Admin: 06/13/19 09:09 Dose: 200 mg Documented by: Apixaban (Eliquis) 5 mg PO BID COUNT INCLUDES THE [facility] Stop: 07/06/19 20:59 Last Admin: 06/13/19 20:53 Dose: 5 mg Documented by: Aspirin (Ecotrin Ectab) 81 mg PO QAM COUNT INCLUDES THE [facility] Stop: 07/07/19 08:59 Last Admin: 06/13/19 09:10 Dose: 81 mg Documented by: Bisacodyl (Dulcolax) 5 mg PO QAM PRN PRN Reason: Constipation Stop: 07/13/19 22:51 Carvedilol (Coreg) 6.25 mg PO BID COUNT INCLUDES THE [facility] Stop: 07/06/19 08:59 Last Admin: 06/13/19 20:52 Dose: 6.25 mg Documented by: Cefdinir (Omnicef Cap) 300 mg PO BID COUNT INCLUDES THE [facility]; Protocol Stop: 06/24/19 08:59 Dextrose (Dextrose 50%) 25 - 50 ml IV UD PRN; Protocol PRN Reason: Hypoglycemia Protocol Stop: 07/05/19 23:45 Digoxin (Lanoxin) 0.125 mg PO Q2D@1600 COUNT INCLUDES THE [facility] Stop: 07/07/19 15:59 Last Admin: 06/13/19 17:15 Dose: 0.125 mg Documented by: Ferrous Sulfate (Feosol) 325 mg PO BIDM COUNT INCLUDES THE [facility] Stop: 07/06/19 07:59 Last Admin: 06/13/19 17:16 Dose: 325 mg Documented by: Furosemide (Lasix) 20 mg PO BID17 COUNT INCLUDES THE [facility] Stop: 07/10/19 16:59 Last Admin: 06/13/19 17:16 Dose: 20 mg Documented by: Gabapentin (Neurontin) 100 mg PO TID COUNT INCLUDES THE [facility] Stop: 07/06/19 08:59 Last Admin: 06/13/19 20:52 Dose: 100 mg Documented by: Glucagon (Glucagen) 1 mg SQ UD PRN; Protocol PRN Reason: Hypoglycemia Protocol Stop: 07/05/19 23:45 Glucose (Dex4 Glucose) 4 - 8 tabs PO UD PRN; Protocol PRN Reason: Hypoglycemia Protocol Stop: 07/05/19 23:45 Glucose (Glucose 40%) 15 - 30 gm PO UD PRN; Protocol PRN Reason: Hypoglycemia Protocol Stop: 07/05/19 23:45 Promethazine HCl 12.5 mg/ (Sodium Chloride) 50.5 mls @ 202 mls/hr IV Q6H PRN PRN Reason: Nausea And Vomiting Stop: 07/05/19 23:45 Last Infusion: 06/10/19 21:51 Dose: Infused Documented by: Insulin Aspart (Novolog Flexpen) 0 units SC ACHS COUNT INCLUDES THE [facility] Stop: 07/05/19 23:45 Last Admin: 06/13/19 21:10 Dose: Not Given Documented by: Insulin Glargine (Lantus Solostar Pen) 5 units SQ DAILY COUNT INCLUDES THE [facility] Stop: 07/07/19 08:59 Last Admin: 06/13/19 09:07 Dose: 5 units Documented by: Isosorbide Mononitrate (Imdur Extended Rel) 30 mg PO DAILY COUNT INCLUDES THE [facility] Stop: 07/06/19 08:59 Last Admin: 06/13/19 09:08 Dose: 30 mg Documented by: Lactobacillus Acidophilus (Floranex) 4 tab PO QIDM COUNT INCLUDES THE [facility] Stop: 07/11/19 11:59 Last Admin: 06/13/19 20:51 Dose: 4 tab Documented by: Levothyroxine Sodium (Synthroid) 75 mcg PO DAILYBB COUNT INCLUDES THE [facility] Stop: 07/06/19 06:29 Last Admin: 06/14/19 06:28 Dose: 75 mcg Documented by: Miconazole Nitrate (Desenex) 1 appln EXT TID COUNT INCLUDES THE [facility] Stop: 07/06/19 13:59 Last Admin: 06/13/19 20:51 Dose: 1 appln Documented by: Miconazole Nitrate (Desenex) 1 appln TOP PRN PRN PRN Reason: SKIN FOLDS Stop: 07/10/19 09:44 Miscellaneous (Carbohydrates For Hypoglycemia) 15 - 30 gm PO UD PRN PRN Reason: Hypoglycemia Protocol Stop: 07/05/19 23:45 Nitroglycerin (Nitrostat) 0.4 mg SL UD PRN PRN Reason: Chest Pain Stop: 07/05/19 23:45 Polyethylene Glycol (Miralax Powder Packet) 17 gm PO DAILY PRN PRN Reason: Constipation Stop: 07/05/19 23:45 Last Admin: 06/13/19 20:57 Dose: 17 gm Documented by: Senna/Docusate Sodium (Senokot S) 1 tab PO BID COUNT INCLUDES THE [facility] Stop: 07/06/19 08:59 Last Admin: 06/13/19 20:55 Dose: 1 tab Documented by: Simvastatin (Zocor) 20 mg PO QPM [facility] Stop: 07/06/19 20:59 Last Admin: 06/13/19 20:53 Dose: 20 mg Documented by: Tramadol HCl (Ultram) 25 - 50 mg PO Q4H PRN PRN Reason: Pain Stop: 07/05/19 23:45 Last Admin: 06/08/19 23:28 Dose: 50 mg Documented by: Trazodone HCl (Desyrel) 50 mg PO HS DILLON Stop: 07/06/19 20:59 Last Admin: 06/13/19 20:52 Dose: 50 mg Documented by: (1) Renal failure (ARF), acute on chronic Acute renal failure type: unspecified Chronic kidney disease stage: stage 3 (moderate) Qualified Code(s): N17.9 - Acute kidney failure, unspecified; N18.3 - Chronic kidney disease, stage 3 (moderate)
[2019-06-14] MEDS: INSULIN GLARGINE SOLOSTAR 100 UNITS/ML 3 ML PEN SQ SCH (08:51)
[2019-06-14] MEDS: INSULIN ASPART 100 UNITS/ML 3 ML PEN SC SCH ×4 (08:51→20:23)
[2019-06-14] MEDS: LACTOBACILLUS ACIDOPHILUS (FLORANEX) TAB PO SCH ×4 (08:52→20:36)
[2019-06-14] MEDS: ISOSORBIDE MONO EXTENDED REL 30 MG TABCR PO SCH (08:53)
[2019-06-14] MEDS: FERROUS SULFATE 325 MG TAB PO SCH ×2 (08:53→17:05)
[2019-06-14] MEDS: carvediloL 6.25 MG TAB PO SCH ×2 (08:53→20:34)
[2019-06-14] MEDS: APIXABAN 5 MG TABLET PO SCH ×2 (08:54→20:35)
[2019-06-14] MEDS: MICONAZOLE NITRATE POWDER 43 GM EXT SCH ×3 (08:54→20:35)
[2019-06-14] MEDS: ASPIRIN 81 MG ECTAB PO SCH (08:54)
[2019-06-14] MEDS: AMIODARONE 200 MG TAB PO SCH (08:55)
[2019-06-14] MEDS: FUROSEMIDE 20 MG TAB PO SCH ×2 (08:55→17:05)
[2019-06-14] MEDS: GABAPENTIN 100 MG CAP PO SCH ×3 (08:56→20:36)
[2019-06-14] MEDS: CEFDINIR 300 MG CAP PO SCH ×2 (08:57→20:36)
[2019-06-14] MEDS: DOCUSATE SODIUM/SENNA 50/8.6MG TAB PO SCH ×2 (09:29→20:39)
[2019-06-14] MEDS: bisacodyL 5 MG TABEC PO PRN (12:21)
[2019-06-14] MEDS: POLYETHYLENE (MIRALAX) 17 GM PACK PO PRN (12:22)
--- NOTE | 2019-06-14 16:16 | Nephrology Progress Note ---
Date of Service June 14, 2019 Assessment & Plan (1) CKD (chronic kidney disease), stage IV: ckd 4 remains at baseline w/ creatinine 1.6-1.9. presenting creat 2.4, K 6.5 as OP and high 5's on presentation. also w/ high mag. admission urine sediment bland > no GN, no infection, no inflammation. suspect elevated creat and K d/t bactrim; however concern for HFpEF as well given increased 02 needs which have persisted; also HFpEF notable on admission d/t elevated creat, CXR. gentle diuresis; no indication to discuss dialysis at this time -hold bactrim, listed now as allergy/intolerance -gentle diuresis as below> cont FR 1.5L/d -d/c yun -at d/c weekly bmp x r under my name; keep ckd clinic f/u as previously scheduled (literally sent her to hospital after labs from clinic; no need to see back immediately unless issues) -daily bmp > at baseline w/ acceptable chemistries -avoid nephrotoxins -heart healthy diet to continue; low K diet could be stopped as long as she is off bactrim -avoid milk of mag at d/c (2) CHF (congestive heart failure): gentle diuresis and w/ recent slight increase in creat will cont lower dose lasix 20 mg po bid for now (3) Cellulitis: bactrim changed to omnicef; ID following Subjective seen on rounds this am; c/o fatigue, sad to be in hospital at holidays; leg pain present/ better Review of Systems Review of Systems: All systems reviewed & are unremarkable except as noted in HPI & below Physical Exam Constitutional: well developed, well nourished and + obese; no acute distress (sitting in bed on 02NC 2L; dosing but wakens fully) Eyes: EOM intact bilaterally ENMT: Ears: no external ear abnormality Nose: no external nose abnormality Mouth: + dry oral mucous membranes Neck: no nuchal rigidity Respiratory: normal respiratory effort Auscultation: + diminished lung sounds Cardiovascular: Rate/Rhythm: regular rate and regular rhythm Extremities: + edema (trace - 1+ BLE indurated) Gastrointestinal (Abdomen): Inspection/Auscultation: normal bowel sounds Percussion/Palpation: abdomen soft; abdomen nontender Skin: no rashes, warm and dry + ulcer (wrapped bl) Neurologic: rueda, fluent speech, no tremor Psychiatric: Orientation: alert and oriented x 3 Affect: + flat affect Results & Data Vital Signs (Past 12 Hours) Vital Signs Temp Pulse Resp BP Pulse Ox 06/14/19 15:55 36.7 C 60 16 118/65 99 06/14/19 09:20 64 06/14/19 07:29 36.5 C 58 L 16 106/66 96 Laboratory Results 06/14/19 06:15 06/14/19 06:15 (1) CHF (congestive heart failure) Heart failure chronicity: acute Heart failure type: unspecified Qualified Code(s): I50.9 - Heart failure, unspecified (2) Cellulitis Laterality: unspecified laterality Site of cellulitis: extremity Site of cellulitis of extremity: lower extremity Qualified Code(s): L03.119 - Cellulitis of unspecified part of limb
[2019-06-14] MEDS: TRAZODONE HCL 50 MG TAB PO SCH (20:35)
[2019-06-14] MEDS: SIMVASTATIN 20 MG TAB PO SCH (20:37)
[2019-06-14] MEDS ORDERED: POLYETHYLENE (MIRALAX) 17 GM PACK PO PRN (21:19)
[2019-06-14] MEDS ORDERED: bisacodyL 10 MG SUPP PR PRN (21:20)
[2019-06-15] MEDS: LEVOTHYROXINE SODIUM 75 MCG TABLET PO SCH (06:08)
[2019-06-15] MEDS: ACETAMINOPHEN 500 MG TAB PO PRN (06:16)
--- NOTE | 2019-06-15 06:53 | Hospitalist Progress Note ---
Date of Service June 15, 2019 Assessment & Plan (1) Renal failure (ARF), acute on chronic: ARF on CKD stage 3-4, Hyperkalemia (Resolved) renal failure with electrolyte imbalance ( hyperkalemia ) Resolved improvement of renal function with resolution of hyperkalemia, current Cr improved to 1.41 ckd 4 at baseline w/ creat between 1.6-1.9 Possibly secondary to month-long Bactrim Rx for recurrent LE cellulitis/chronic venous stasis ulcers (MSSA/Sternotrophomonas on wound CS)- appreciate input from Nephrology Bactrim D/umesh ( added to allergy list -to avoid future exposure) treated with -Lasix albumin, regular insulin for hyperkalemia Calcium level has been resolved since Restarted reg. K diet 06/13 out patient lab work : Basic metabolic panel every week for X4 weeks results should be faxed to Nephrology Dr Sabina Abel at [facility] ACUTE RENAL FAILURE ON CKD STAGE 3- 4 : Renal failure (ARF), acute on chronic: ckd 4 at baseline w/ creat between 1.6-1.9. presented with elevated Cr 2.5 , current Cr 1.49 appreciate nephrology eval on Lasix to p.o. 20 mg twice daily (received 20 mg IV lasix w/ blood transfusion on 06/13) Bilat lower ext cellulitis : chronic Plain Xray shows no evidence of osteomyelitis Was treated with IV Zosyn appreciate input from ID Antibiotic is changed to p.o. Omnicef, will need long-term p.o. antibiotic course Added Lactinex avoid Bactrim -hyperkalemia /renal failure ( added to allergy list ) Wound care consulted RE follow-up eval for leg wounds/cellulitis-appreciate input pt had recent debridement of lower ext , no repeat debridement needed cont abx and local wound care -per recommendation Acue decompensation of chronic diastolic heart failure (EF of 55 % TTE 2018) resolved pt denies of SOB or Orthopnea Volume status remains stable, treated IV Lasix with adequate diuresis Lasix is changed to p.o. chronic respiratory failure on home O2, CAD: status post stenting, hx LBBB, PVD as per records cont out pt meds -Coreg AFib sp PPM, paced rhythm on amiodarone /digoxin on Eliquis HTN, BP stable cont on Coreg/Imdur DM2 insulin requiring, well-controlled as of recent outpatient hemoglobin A1c of 5.28 March 2019 Chronic anemia secondary to CKD - baseline hgb 8.5-9 On 06/13, Hgb 6.9, and on repeat 6.7 - s/p transfusion of 1 unit of pRBC, consent obtained (provided iv lasix w/ transfusion) - no s/s of acute bleed - stool hemoccult positive, pt is on iron suppl. , stool soft brown/green later today, will repeat - cont to monitor, current Hgb 8.0, stable and unchanged from yesterday Constipation - pt has had difficulty w/ BMs - did not have BM for several days until now, bowel regimen adjusted - avoid straining Ambulatory dysfunction - cont. PT/OT DVT prophylaxis. Eliquis Conditional CODE STATUS (patient okay with CPR; no intubation) DISPOSITION : was at personal longterm will need skill rehab on discharge /referral made to [facility] social service following for dc planning Subjective No acute events overnight. Patient sitting up in chair, comfortable. RN changing dressings on LEs, LE wounds looks clean and mostly dry. Denies any fevers, chills, chest pain, palpitations, lightheadedness or dizziness. Says she uses suppl. oxygen as needed at home/when not in the hospital. Denies any abdominal pain, nausea or vomiting. Hgb 8.0 this AM, stable. Unchanged since yesterday. Hemoccult positive. Pt is on iron supplement. Patient had a soft bowel movement later today, which was brown/green (normal). Cr improved 1.41 (baseline creatinine 1.6-1.9) Review of Systems Review of Systems: All systems reviewed & are unremarkable except as noted in HPI & below Constitutional: no fever and no chills Respiratory: no cough, no dyspnea and no pain on inspiration Cardiovascular: no chest pain, no dyspnea on exertion, no palpitations and no edema Gastrointestinal: no abdominal pain, no nausea and no vomiting Physical Exam Physical Exam: Constitutional: Elderly female,sitting up in chair + obese; in NAD Eyes: PERRL, EOMI, conjunctivae normal, anicteric sclerae ENMT: external ear and nose normal, oropharynx normal Neck: normal visual inspection; supple, no nuchal rigidity Respiratory: normal respiratory effort, clear to auscult. but + diminished lung sounds and + mild crackles (BL bases) Cardiovascular: Rate/Rhythm: regular rate and regular rhythm Extremities: + trace pedal edema b/l, +ulcer/wounds-small clean and mostly dry (clean dressings); no calf tenderness Gastrointestinal (Abdomen): normal bowel sounds, soft,obese, nontender, nondistended, no guarding Musculoskeletal: no cyanosis or clubbing, extremities motor strength 5/5 Skin: no rashes, warm and dry + ulcer (wrapped bl) and + wound (Chronic wounds on lower extremity - image in the chart from 06/13 AM) Neurologic: alert, answers questions appropriately Psychiatric: A+Ox3, flat affect, cooperative Results & Data Vital Signs (Past 12 Hours) Vital Signs Temp Pulse Resp BP Pulse Ox 06/14/19 23:36 36.4 C L 60 18 121/61 98 Laboratory Results 06/15/19 06/15/19 06/15/19 Range/Units 07:59 07:01 07:01 Hgb 8.0 L (12.0-16.0) g/dL Hct 28.2 L (37-47) % Sodium 141 (136-145) mmol/L Potassium 3.8 (3.5-5.1) mmol/L Chloride 101 (98-107) mmol/L Carbon Dioxide 38 H (21-32) mmol/L Anion Gap 1.0 L (3-11) BUN 39 H (7-18) mg/dl Creatinine 1.41 H (0.6-1.2) mg/dl Est Cr Clr Drug Dosing 39.9 ml/min Est GFR ( Amer) 42.1 Est GFR (Non-Af Amer) 36.3 BUN/Creatinine Ratio 27.4 H (10-20) Glucose 102 H (70-99) mg/dl POC Glucose 130 H (70-99) Calcium 9.3 (8.5-10.1) mg/dl Stool Occult Bld Scrn (Negative) 06/15/19 06/14/19 06/14/19 Range/Units 06:00 20:16 16:37 Hgb (12.0-16.0) g/dL Hct (37-47) % Sodium (136-145) mmol/L Potassium (3.5-5.1) mmol/L Chloride (98-107) mmol/L Carbon Dioxide (21-32) mmol/L Anion Gap (3-11) BUN (7-18) mg/dl Creatinine (0.6-1.2) mg/dl Est Cr Clr Drug Dosing ml/min Est GFR ( Amer) Est GFR (Non-Af Amer) BUN/Creatinine Ratio (10-20) Glucose (70-99) mg/dl POC Glucose 164 H 163 H (70-99) Calcium (8.5-10.1) mg/dl Stool Occult Bld Scrn Positive A (Negative) 06/14/19 Range/Units 11:50 Hgb (12.0-16.0) g/dL Hct (37-47) % Sodium (136-145) mmol/L Potassium (3.5-5.1) mmol/L Chloride (98-107) mmol/L Carbon Dioxide (21-32) mmol/L Anion Gap (3-11) BUN (7-18) mg/dl Creatinine (0.6-1.2) mg/dl Est Cr Clr Drug Dosing ml/min Est GFR ( Amer) Est GFR (Non-Af Amer) BUN/Creatinine Ratio (10-20) Glucose (70-99) mg/dl POC Glucose 140 H (70-99) Calcium (8.5-10.1) mg/dl Stool Occult Bld Scrn (Negative) Medications Administered Current Inpatient Medications Acetaminophen (Tylenol) 1,000 mg PO Q6 PRN PRN Reason: Pain Stop: 07/10/19 09:32 Last Admin: 06/15/19 06:16 Dose: 1,000 mg Documented by: Amiodarone HCl (Cordarone) 200 mg PO QAM [facility] Stop: 07/06/19 08:59 Last Admin: 06/14/19 08:55 Dose: 200 mg Documented by: Apixaban (Eliquis) 5 mg PO BID [facility] Stop: 07/06/19 20:59 Last Admin: 06/14/19 20:35 Dose: 5 mg Documented by: Aspirin (Ecotrin Ectab) 81 mg PO QAM [facility] Stop: 07/07/19 08:59 Last Admin: 06/14/19 08:54 Dose: 81 mg Documented by: Bisacodyl (Dulcolax) 5 mg PO QAM PRN PRN Reason: Constipation Stop: 07/13/19 22:51 Last Admin: 06/14/19 12:21 Dose: 5 mg Documented by: Bisacodyl (Dulcolax) 10 mg MN BID PRN PRN Reason: Constipation Stop: 07/14/19 21:19 Carvedilol (Coreg) 6.25 mg PO BID [facility] Stop: 07/06/19 08:59 Last Admin: 06/14/19 20:34 Dose: 6.25 mg Documented by: Cefdinir (Omnicef Cap) 300 mg PO BID [facility]; Protocol Stop: 06/24/19 08:59 Last Admin: 06/14/19 20:36 Dose: 300 mg Documented by: Dextrose (Dextrose 50%) 25 - 50 ml IV UD PRN; Protocol PRN Reason: Hypoglycemia Protocol Stop: 07/05/19 23:45 Digoxin (Lanoxin) 0.125 mg PO Q2D@1600 [facility] Stop: 07/07/19 15:59 Last Admin: 06/13/19 17:15 Dose: 0.125 mg Documented by: Ferrous Sulfate (Feosol) 325 mg PO BIDM [facility] Stop: 07/06/19 07:59 Last Admin: 06/14/19 17:05 Dose: 325 mg Documented by: Furosemide (Lasix) 20 mg PO BID17 [facility] Stop: 07/10/19 16:59 Last Admin: 06/14/19 17:05 Dose: 20 mg Documented by: Gabapentin (Neurontin) 100 mg PO TID [facility] Stop: 07/06/19 08:59 Last Admin: 06/14/19 20:36 Dose: 100 mg Documented by: Glucagon (Glucagen) 1 mg SQ UD PRN; Protocol PRN Reason: Hypoglycemia Protocol Stop: 07/05/19 23:45 Glucose (Dex4 Glucose) 4 - 8 tabs PO UD PRN; Protocol PRN Reason: Hypoglycemia Protocol Stop: 07/05/19 23:45 Glucose (Glucose 40%) 15 - 30 gm PO UD PRN; Protocol PRN Reason: Hypoglycemia Protocol Stop: 07/05/19 23:45 Promethazine HCl 12.5 mg/ (Sodium Chloride) 50.5 mls @ 202 mls/hr IV Q6H PRN PRN Reason: Nausea And Vomiting Stop: 07/05/19 23:45 Last Infusion: 06/10/19 21:51 Dose: Infused Documented by: Insulin Aspart (Novolog Flexpen) 0 units SC ACHS [facility] Stop: 07/05/19 23:45 Last Admin: 06/14/19 20:23 Dose: Not Given Documented by: Insulin Glargine (Lantus Solostar Pen) 5 units SQ DAILY [facility] Stop: 07/07/19 08:59 Last Admin: 06/14/19 08:51 Dose: 5 units Documented by: Isosorbide Mononitrate (Imdur Extended Rel) 30 mg PO DAILY [facility] Stop: 07/06/19 08:59 Last Admin: 06/14/19 08:53 Dose: 30 mg Documented by: Lactobacillus Acidophilus (Floranex) 4 tab PO QIDM [facility] Stop: 07/11/19 11:59 Last Admin: 06/14/19 20:36 Dose: 4 tab Documented by: Levothyroxine Sodium (Synthroid) 75 mcg PO DAILYBB [facility] Stop: 07/06/19 06:29 Last Admin: 06/15/19 06:08 Dose: 75 mcg Documented by: Miconazole Nitrate (Desenex) 1 appln EXT TID [facility] Stop: 07/06/19 13:59 Last Admin: 06/14/19 20:35 Dose: 1 appln Documented by: Miconazole Nitrate (Desenex) 1 appln TOP PRN PRN PRN Reason: SKIN FOLDS Stop: 07/10/19 09:44 Miscellaneous (Carbohydrates For Hypoglycemia) 15 - 30 gm PO UD PRN PRN Reason: Hypoglycemia Protocol Stop: 07/05/19 23:45 Nitroglycerin (Nitrostat) 0.4 mg SL UD PRN PRN Reason: Chest Pain Stop: 07/05/19 23:45 Polyethylene Glycol (Miralax Powder Packet) 17 gm PO DAILY PRN PRN Reason: Constipation Stop: 07/05/19 23:45 Last Admin: 06/14/19 12:22 Dose: 17 gm Documented by: Polyethylene Glycol (Miralax Powder Packet) 17 gm PO TID PRN PRN Reason: Constipation Stop: 07/14/19 21:18 Senna/Docusate Sodium (Senokot S) 1 tab PO BID [facility] Stop: 07/06/19 08:59 Last Admin: 06/14/19 20:39 Dose: 1 tab Documented by: Simvastatin (Zocor) 20 mg PO QPM [facility] Stop: 07/06/19 20:59 Last Admin: 06/14/19 20:37 Dose: 20 mg Documented by: Tramadol HCl (Ultram) 25 - 50 mg PO Q4H PRN PRN Reason: Pain Stop: 07/05/19 23:45 Last Admin: 06/08/19 23:28 Dose: 50 mg Documented by: Trazodone HCl (Desyrel) 50 mg PO HS DILLON Stop: 07/06/19 20:59 Last Admin: 06/14/19 20:35 Dose: 50 mg Documented by: (1) Renal failure (ARF), acute on chronic Acute renal failure type: unspecified Chronic kidney disease stage: stage 3 (moderate) Qualified Code(s): N17.9 - Acute kidney failure, unspecified; N18.3 - Chronic kidney disease, stage 3 (moderate)
[2019-06-15 07:42] LABS: Hematocrit (blood only) 28.2 % (37-47)
[2019-06-15 07:59] LABS: BUN Creatinine Ratio 27.4 (10-20); Calcium 9.3 mg/dl (8.5-10.1); Creatinine Clr Calc Pharmacy 39.9 ml/min; Est GFR (African American) 42.1; Est GFR (Non-African American) 36.3; Potassium 3.8 mmol/L (3.5-5.1)
[2019-06-15] MEDS: carvediloL 6.25 MG TAB PO SCH ×2 (08:13→21:05)
[2019-06-15] MEDS: ISOSORBIDE MONO EXTENDED REL 30 MG TABCR PO SCH (08:14)
[2019-06-15] MEDS: LACTOBACILLUS ACIDOPHILUS (FLORANEX) TAB PO SCH ×4 (08:14→21:07)
[2019-06-15] MEDS: GABAPENTIN 100 MG CAP PO SCH ×3 (08:15→21:08)
[2019-06-15] MEDS: ASPIRIN 81 MG ECTAB PO SCH (08:16)
[2019-06-15] MEDS: FUROSEMIDE 20 MG TAB PO SCH ×2 (08:16→16:42)
[2019-06-15] MEDS: APIXABAN 5 MG TABLET PO SCH ×2 (08:16→21:07)
[2019-06-15] MEDS: AMIODARONE 200 MG TAB PO SCH (08:16)
[2019-06-15] MEDS: CEFDINIR 300 MG CAP PO SCH ×2 (08:16→21:09)
[2019-06-15] MEDS: FERROUS SULFATE 325 MG TAB PO SCH ×2 (08:17→16:41)
[2019-06-15] MEDS: INSULIN GLARGINE SOLOSTAR 100 UNITS/ML 3 ML PEN SQ SCH (08:17)
[2019-06-15] MEDS: INSULIN ASPART 100 UNITS/ML 3 ML PEN SC SCH ×4 (08:20→22:00)
[2019-06-15] MEDS: MICONAZOLE NITRATE POWDER 43 GM EXT SCH ×3 (08:21→21:06)
[2019-06-15] MEDS: DOCUSATE SODIUM/SENNA 50/8.6MG TAB PO SCH ×2 (09:17→21:09)
[2019-06-15] MEDS ORDERED: FUROSEMIDE 20 MG TAB PO STA (14:08)
[2019-06-15] MEDS: POLYETHYLENE (MIRALAX) 17 GM PACK PO PRN (14:18)
[2019-06-15] MEDS: DIGOXIN 0.125 MG TAB PO SCH (16:37)
[2019-06-15] MEDS: TRAZODONE HCL 50 MG TAB PO SCH (21:07)
[2019-06-15] MEDS: SIMVASTATIN 20 MG TAB PO SCH (21:09)
[2019-06-15] MEDS: bisacodyL 5 MG TABEC PO PRN (21:10)
[2019-06-16] MEDS: LEVOTHYROXINE SODIUM 75 MCG TABLET PO SCH (06:26)
[2019-06-16 06:34] LABS: Hematocrit (blood only) 28.4 % (37-47); Hemoglobin 8.1 g/dL (12.0-16.0)
[2019-06-16 06:55] LABS: BUN Creatinine Ratio 26.5 (10-20); Creatinine Clr Calc Pharmacy 36.9 ml/min; Est GFR (African American) 37.9; Est GFR (Non-African American) 32.7; Magnesium 2.2 mg/dl (1.8-2.4); Potassium 3.9 mmol/L (3.5-5.1)
[2019-06-16] MEDS: LACTOBACILLUS ACIDOPHILUS (FLORANEX) TAB PO SCH ×4 (08:53→20:53)
[2019-06-16] MEDS: INSULIN ASPART 100 UNITS/ML 3 ML PEN SC SCH ×4 (08:53→21:50)
[2019-06-16] MEDS: FERROUS SULFATE 325 MG TAB PO SCH ×2 (08:54→16:45)
[2019-06-16] MEDS: MICONAZOLE NITRATE POWDER 43 GM EXT SCH ×3 (08:54→20:52)
[2019-06-16] MEDS: AMIODARONE 200 MG TAB PO SCH (08:54)
[2019-06-16] MEDS: CEFDINIR 300 MG CAP PO SCH ×2 (08:55→20:54)
[2019-06-16] MEDS: APIXABAN 5 MG TABLET PO SCH ×2 (08:55→20:52)
[2019-06-16] MEDS: carvediloL 6.25 MG TAB PO SCH ×2 (08:55→20:51)
[2019-06-16] MEDS: GABAPENTIN 100 MG CAP PO SCH ×3 (08:55→20:54)
[2019-06-16] MEDS: FUROSEMIDE 20 MG TAB PO SCH ×2 (08:56→16:46)
[2019-06-16] MEDS: ASPIRIN 81 MG ECTAB PO SCH (08:56)
[2019-06-16] MEDS: ISOSORBIDE MONO EXTENDED REL 30 MG TABCR PO SCH (08:56)
[2019-06-16] MEDS: DOCUSATE SODIUM/SENNA 50/8.6MG TAB PO SCH ×2 (08:57→20:55)
[2019-06-16] MEDS: INSULIN GLARGINE SOLOSTAR 100 UNITS/ML 3 ML PEN SQ SCH (08:57)
[2019-06-16] MEDS ORDERED: POLYETHYLENE (MIRALAX) 17 GM PACK PO SCH (09:00)
--- NOTE | 2019-06-16 10:19 | Hospitalist Progress Note ---
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 K diet 06/13 out patient lab work : Basic metabolic panel every week for X4 weeks results should be faxed to Nephrology Dr Sabina Abel at [facility] ACUTE RENAL FAILURE ON CKD STAGE 3- 4 : Renal failure (ARF), acute on chronic: ckd 4 at baseline w/ creat between 1.6-1.9. presented with elevated Cr 2.5 , current Cr 1.5 appreciate nephrology eval on Lasix to p.o. 20 mg twice daily (received 20 mg IV lasix w/ blood transfusion on 06/13) Bilat lower ext cellulitis : chronic Plain Xray shows no evidence of osteomyelitis Was treated with IV Zosyn appreciate input from ID Antibiotic is changed to p.o. Omnicef, will need long-term p.o. antibiotic course Added Lactinex avoid Bactrim -hyperkalemia /renal failure ( added to allergy list ) Wound care consulted RE follow-up eval for leg wounds/cellulitis-appreciate input pt had recent debridement of lower ext , no repeat debridement needed cont abx and local wound care -per recommendation Acue decompensation of chronic diastolic heart failure (EF of 55 % TTE 2018) resolved pt denies of SOB or Orthopnea Volume status remains stable, treated IV Lasix with adequate diuresis Lasix is changed to p.o. chronic respiratory failure on home O2, CAD: status post stenting, hx LBBB, PVD as per records cont out pt meds -Coreg AFib sp PPM, paced rhythm on amiodarone /digoxin on Eliquis HTN, BP stable cont on Coreg/Imdur DM2 insulin requiring, well-controlled as of recent outpatient hemoglobin A1c of 5.28 March 2019 Chronic anemia secondary to CKD - baseline hgb 8.5-9 On 06/13, Hgb 6.9, and on repeat 6.7 - s/p transfusion of 1 unit of pRBC, consent obtained (provided iv lasix w/ transfusion) - no s/s of acute bleed - stool hemoccult positive, pt is on iron suppl. , stool soft brown/green later today, will repeat - cont to monitor, current Hgb 8.1, stable and unchanged from previous days Constipation - pt has had difficulty w/ BMs - did not have BM for several days until now, bowel regimen adjusted - avoid straining Ambulatory dysfunction - cont. PT/OT DVT prophylaxis. Eliquis Conditional CODE STATUS (patient okay with CPR; no intubation) DISPOSITION : was at personal snf will need skill rehab on discharge /referral made to [facility] social service following for dc planning Subjective No acute events overnight. Patient sitting up in chair, comfortable. Denies any fevers, chills, chest pain, palpitations, lightheadedness or dizziness. Uses suppl. oxygen as needed at home/when not in the hospital. Denies any abdominal pain, nausea or vomiting. Hgb 8.1 this AM, stable. Unchanged since yesterday. Hemoccult positive. Pt is on iron supplement. Observed a soft stool which was brown/green (normal). Review of Systems Review of Systems: All systems reviewed & are unremarkable except as noted in HPI & below Constitutional: no fever and no chills Respiratory: no cough, no dyspnea and no pain on inspiration Cardiovascular: no chest pain, no palpitations and no edema Gastrointestinal: no abdominal pain, no nausea and no vomiting Physical Exam Physical Exam: Constitutional: Elderly female,sitting up in chair + obese; in NAD Eyes: PERRL, EOMI, conjunctivae normal, anicteric sclerae ENMT: external ear and nose normal, oropharynx normal Neck: normal visual inspection; supple, no nuchal rigidity Respiratory: normal respiratory effort, clear to auscult. but + diminished lung sounds and + mild crackles (BL bases) Cardiovascular: Rate/Rhythm: regular rate and regular rhythm Extremities: + trace pedal edema b/l, +ulcer/wounds-small clean and mostly dry (clean dressings); no calf tenderness Gastrointestinal (Abdomen): normal bowel sounds, soft,obese, nontender, nondistended, no guarding Musculoskeletal: no cyanosis or clubbing, extremities motor strength 5/5 Skin: no rashes, warm and dry + ulcer (wrapped bl) and + wound (Chronic wounds on lower extremity - image in the chart from 12 AM) Neurologic: alert, answers questions appropriately Psychiatric: A+Ox3, flat affect, cooperative Results & Data Vital Signs (Past 12 Hours) Vital Signs Temp Pulse Resp BP Pulse Ox 06/16/19 07:28 36.6 C 60 20 119/69 99 06/15/19 23:07 36.7 C 60 17 104/60 93 Laboratory Results 06/16/19 06/16/19 06/16/19 Range/Units 09:15 07:52 06:05 Hgb (12.0-16.0) g/dL Hct (37-47) % Sodium 139 (136-145) mmol/L Potassium 3.9 (3.5-5.1) mmol/L Chloride 100 (98-107) mmol/L Carbon Dioxide 40 H (21-32) mmol/L Anion Gap -1.0 L (3-11) BUN 41 H (7-18) mg/dl Creatinine 1.54 H (0.6-1.2) mg/dl Est Cr Clr Drug Dosing 36.9 ml/min Est GFR ( Amer) 37.9 Est GFR (Non-Af Amer) 32.7 BUN/Creatinine Ratio 26.5 H (10-20) Glucose 96 (70-99) mg/dl POC Glucose 119 H (70-99) Calcium 9.0 (8.5-10.1) mg/dl Magnesium 2.2 (1.8-2.4) mg/dl Stool Occult Bld Scrn Positive A (Negative) 06/16/19 06/15/19 06/15/19 Range/Units 06:05 20:29 16:22 Hgb 8.1 L (12.0-16.0) g/dL Hct 28.4 L (37-47) % Sodium (136-145) mmol/L Potassium (3.5-5.1) mmol/L Chloride (98-107) mmol/L Carbon Dioxide (21-32) mmol/L Anion Gap (3-11) BUN (7-18) mg/dl Creatinine (0.6-1.2) mg/dl Est Cr Clr Drug Dosing ml/min Est GFR ( Amer) Est GFR (Non-Af Amer) BUN/Creatinine Ratio (10-20) Glucose (70-99) mg/dl POC Glucose 151 H 134 H (70-99) Calcium (8.5-10.1) mg/dl Magnesium (1.8-2.4) mg/dl Stool Occult Bld Scrn (Negative) 06/15/19 Range/Units 11:52 Hgb (12.0-16.0) g/dL Hct (37-47) % Sodium (136-145) mmol/L Potassium (3.5-5.1) mmol/L Chloride (98-107) mmol/L Carbon Dioxide (21-32) mmol/L Anion Gap (3-11) BUN (7-18) mg/dl Creatinine (0.6-1.2) mg/dl Est Cr Clr Drug Dosing ml/min Est GFR ( Amer) Est GFR (Non-Af Amer) BUN/Creatinine Ratio (10-20) Glucose (70-99) mg/dl POC Glucose 144 H (70-99) Calcium (8.5-10.1) mg/dl Magnesium (1.8-2.4) mg/dl Stool Occult Bld Scrn (Negative) Medications Administered Current Inpatient Medications Acetaminophen (Tylenol) 1,000 mg PO Q6 PRN PRN Reason: Pain Stop: 07/10/19 09:32 Last Admin: 06/15/19 06:16 Dose: 1,000 mg Documented by: Amiodarone HCl (Cordarone) 200 mg PO QAM [facility] Stop: 07/06/19 08:59 Last Admin: 06/16/19 08:54 Dose: 200 mg Documented by: Apixaban (Eliquis) 5 mg PO BID [facility] Stop: 07/06/19 20:59 Last Admin: 06/16/19 08:55 Dose: 5 mg Documented by: Aspirin (Ecotrin Ectab) 81 mg PO QAM [facility] Stop: 07/07/19 08:59 Last Admin: 06/16/19 08:56 Dose: 81 mg Documented by: Bisacodyl (Dulcolax) 5 mg PO QAM PRN PRN Reason: Constipation Stop: 07/13/19 22:51 Last Admin: 06/15/19 21:10 Dose: 5 mg Documented by: Bisacodyl (Dulcolax) 10 mg GA BID PRN PRN Reason: Constipation Stop: 07/14/19 21:19 Carvedilol (Coreg) 6.25 mg PO BID [facility] Stop: 07/06/19 08:59 Last Admin: 06/16/19 08:55 Dose: 6.25 mg Documented by: Cefdinir (Omnicef Cap) 300 mg PO BID [facility]; Protocol Stop: 06/24/19 08:59 Last Admin: 06/16/19 08:55 Dose: 300 mg Documented by: Dextrose (Dextrose 50%) 25 - 50 ml IV UD PRN; Protocol PRN Reason: Hypoglycemia Protocol Stop: 07/05/19 23:45 Digoxin (Lanoxin) 0.125 mg PO Q2D@1600 [facility] Stop: 07/07/19 15:59 Last Admin: 06/15/19 16:37 Dose: 0.125 mg Documented by: Ferrous Sulfate (Feosol) 325 mg PO BIDM [facility] Stop: 07/06/19 07:59 Last Admin: 06/16/19 08:54 Dose: 325 mg Documented by: Furosemide (Lasix) 20 mg PO BID17 [facility] Stop: 07/10/19 16:59 Last Admin: 06/16/19 08:56 Dose: 20 mg Documented by: Gabapentin (Neurontin) 100 mg PO TID [facility] Stop: 07/06/19 08:59 Last Admin: 06/16/19 08:55 Dose: 100 mg Documented by: Glucagon (Glucagen) 1 mg SQ UD PRN; Protocol PRN Reason: Hypoglycemia Protocol Stop: 07/05/19 23:45 Glucose (Dex4 Glucose) 4 - 8 tabs PO UD PRN; Protocol PRN Reason: Hypoglycemia Protocol Stop: 07/05/19 23:45 Glucose (Glucose 40%) 15 - 30 gm PO UD PRN; Protocol PRN Reason: Hypoglycemia Protocol Stop: 07/05/19 23:45 Promethazine HCl 12.5 mg/ (Sodium Chloride) 50.5 mls @ 202 mls/hr IV Q6H PRN PRN Reason: Nausea And Vomiting Stop: 07/05/19 23:45 Last Infusion: 06/10/19 21:51 Dose: Infused Documented by: Insulin Aspart (Novolog Flexpen) 0 units SC ACHS [facility] Stop: 07/05/19 23:45 Last Admin: 06/16/19 08:53 Dose: 1 units Documented by: Insulin Glargine (Lantus Solostar Pen) 5 units SQ DAILY [facility] Stop: 07/07/19 08:59 Last Admin: 06/16/19 08:57 Dose: 5 units Documented by: Isosorbide Mononitrate (Imdur Extended Rel) 30 mg PO DAILY [facility] Stop: 07/06/19 08:59 Last Admin: 06/16/19 08:56 Dose: 30 mg Documented by: Lactobacillus Acidophilus (Floranex) 4 tab PO QIDM [facility] Stop: 07/11/19 11:59 Last Admin: 06/16/19 08:53 Dose: 4 tab Documented by: Levothyroxine Sodium (Synthroid) 75 mcg PO DAILYBB [facility] Stop: 07/06/19 06:29 Last Admin: 06/16/19 06:26 Dose: 75 mcg Documented by: Miconazole Nitrate (Desenex) 1 appln EXT TID [facility] Stop: 07/06/19 13:59 Last Admin: 06/16/19 08:54 Dose: 1 appln Documented by: Miconazole Nitrate (Desenex) 1 appln TOP PRN PRN PRN Reason: SKIN FOLDS Stop: 07/10/19 09:44 Miscellaneous (Carbohydrates For Hypoglycemia) 15 - 30 gm PO UD PRN PRN Reason: Hypoglycemia Protocol Stop: 07/05/19 23:45 Nitroglycerin (Nitrostat) 0.4 mg SL UD PRN PRN Reason: Chest Pain Stop: 07/05/19 23:45 Polyethylene Glycol (Miralax Powder Packet) 17 gm PO TID PRN PRN Reason: Constipation Stop: 07/14/19 21:18 Senna/Docusate Sodium (Senokot S) 1 tab PO BID [facility] Stop: 07/06/19 08:59 Last Admin: 06/16/19 08:57 Dose: Not Given Documented by: Simvastatin (Zocor) 20 mg PO QPM [facility] Stop: 07/06/19 20:59 Last Admin: 06/15/19 21:09 Dose: 20 mg Documented by: Tramadol HCl (Ultram) 25 - 50 mg PO Q4H PRN PRN Reason: Pain Stop: 07/05/19 23:45 Last Admin: 06/08/19 23:28 Dose: 50 mg Documented by: Trazodone HCl (Desyrel) 50 mg PO HS [facility] Stop: 07/06/19 20:59 Last Admin: 06/15/19 21:07 Dose: 50 mg Documented by: (1) Renal failure (ARF), acute on chronic Acute renal failure type: unspecified Chronic kidney disease stage: stage 3 (moderate) Qualified Code(s): N17.9 - Acute kidney failure, unspecified; N18.3 - Chronic kidney disease, stage 3 (moderate)
[2019-06-16] MEDS: TRAZODONE HCL 50 MG TAB PO SCH (20:52)
[2019-06-16] MEDS: SIMVASTATIN 20 MG TAB PO SCH (20:55)
[2019-06-17] MEDS: LEVOTHYROXINE SODIUM 75 MCG TABLET PO SCH (06:10)
--- NOTE | 2019-06-17 07:44 | Hospitalist Progress Note ---
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 K diet 06/13 out patient lab work : Basic metabolic panel every week for X4 weeks results should be faxed to Nephrology Dr Sabina Abel at [facility] ACUTE RENAL FAILURE ON CKD STAGE 3- 4 : Renal failure (ARF), acute on chronic: ckd 4 at baseline w/ creat between 1.6-1.9. presented with elevated Cr 2.5 , current Cr 1.5 appreciate nephrology eval on Lasix to p.o. 20 mg twice daily (received 20 mg IV lasix w/ blood transfusion on 06/13) Bilat lower ext cellulitis : chronic Plain Xray shows no evidence of osteomyelitis Was treated with IV Zosyn appreciate input from ID Antibiotic is changed to p.o. Omnicef, will need long-term p.o. antibiotic course Added Lactinex avoid Bactrim -hyperkalemia /renal failure ( added to allergy list ) Wound care consulted RE follow-up eval for leg wounds/cellulitis-appreciate input pt had recent debridement of lower ext , no repeat debridement needed cont abx and local wound care -per recommendation Acue decompensation of chronic diastolic heart failure (EF of 55 % TTE 2018) resolved pt denies of SOB or Orthopnea Volume status remains stable, treated IV Lasix with adequate diuresis Lasix is changed to p.o. chronic respiratory failure on home O2, CAD: status post stenting, hx LBBB, PVD as per records cont out pt meds -Coreg AFib sp PPM, paced rhythm on amiodarone /digoxin on Eliquis HTN, BP stable cont on Coreg/Imdur DM2 insulin requiring, well-controlled as of recent outpatient hemoglobin A1c of 5.28 March 2019 Chronic anemia secondary to CKD - baseline hgb 8.5-9 On 06/13, Hgb 6.9, and on repeat 6.7 - s/p transfusion of 1 unit of pRBC, consent obtained (provided iv lasix w/ transfusion) - no s/s of acute bleed - stool hemoccult positive, pt is on iron suppl. , stool soft brown/green - cont to monitor, current Hgb 8.1, stable and unchanged from previous days Constipation - pt has had difficulty w/ BMs - did not have BM for several days until now, bowel regimen adjusted - avoid straining Ambulatory dysfunction - cont. PT/OT DVT prophylaxis. Eliquis Conditional CODE STATUS (patient okay with CPR; no intubation) DISPOSITION : was at personal fpc will need skill rehab on discharge /referral made to [facility] social service following for dc planning Subjective Patient sitting up in a chair, reading newspaper. Patient already felt better yesterday, clinically seems to be more interactive. Again today much more interactive than before. Denies any fevers, chills, chest pain, shortness of breath, abdominal pain, nausea or vomiting. Review of Systems Review of Systems: All systems reviewed & are unremarkable except as noted in HPI & below Constitutional: no fever and no chills Respiratory: no cough and no dyspnea Cardiovascular: no chest pain and no palpitations Gastrointestinal: no abdominal pain, no nausea and no vomiting Physical Exam Physical Exam: Constitutional: Elderly female,sitting up in chair + obese; in NAD, reading newspaper Eyes: PERRL, EOMI, conjunctivae normal, anicteric sclerae ENMT: external ear and nose normal, oropharynx normal Neck: normal visual inspection; supple, no nuchal rigidity Respiratory: normal respiratory effort, clear to auscult. but + diminished lung sounds and + mild crackles (BL bases) Cardiovascular: Rate/Rhythm: regular rate and regular rhythm Extremities: + trace pedal edema b/l, +ulcer/wounds-small clean and mostly dry (clean dressings); no calf tenderness Gastrointestinal (Abdomen): normal bowel sounds, soft,obese, nontender, nondistended, no guarding Musculoskeletal: no cyanosis or clubbing, extremities motor strength 5/5 Skin: no rashes, warm and dry + ulcer (wrapped bl) and + wound (Chronic wounds on lower extremity - image in the chart from 12 AM) Neurologic: alert, answers questions appropriately Psychiatric: A+Ox3, flat affect, cooperative Results & Data Vital Signs (Past 12 Hours) Vital Signs Temp Pulse Resp BP BP Pulse Ox 06/17/19 06:21 36.9 C 60 19 107/64 90 06/16/19 22:56 36.8 C 60 18 100/61 94 (1) Renal failure (ARF), acute on chronic Acute renal failure type: unspecified Chronic kidney disease stage: stage 3 (moderate) Qualified Code(s): N17.9 - Acute kidney failure, unspecified; N18.3 - Chronic kidney disease, stage 3 (moderate)
[2019-06-17] MEDS: INSULIN ASPART 100 UNITS/ML 3 ML PEN SC SCH ×4 (08:08→21:12)
[2019-06-17] MEDS: ISOSORBIDE MONO EXTENDED REL 30 MG TABCR PO SCH (08:10)
[2019-06-17] MEDS: INSULIN GLARGINE SOLOSTAR 100 UNITS/ML 3 ML PEN SQ SCH (08:10)
[2019-06-17] MEDS: LACTOBACILLUS ACIDOPHILUS (FLORANEX) TAB PO SCH ×4 (08:10→21:06)
[2019-06-17] MEDS: ASPIRIN 81 MG ECTAB PO SCH (08:11)
[2019-06-17] MEDS: FERROUS SULFATE 325 MG TAB PO SCH ×2 (08:11→16:49)
[2019-06-17] MEDS: FUROSEMIDE 20 MG TAB PO SCH ×2 (08:11→16:49)
[2019-06-17] MEDS: GABAPENTIN 100 MG CAP PO SCH ×3 (08:11→21:07)
[2019-06-17] MEDS: CEFDINIR 300 MG CAP PO SCH ×2 (08:11→21:07)
[2019-06-17] MEDS: APIXABAN 5 MG TABLET PO SCH ×2 (08:12→21:06)
[2019-06-17] MEDS: carvediloL 6.25 MG TAB PO SCH ×2 (08:12→21:05)
[2019-06-17] MEDS: AMIODARONE 200 MG TAB PO SCH (08:12)
[2019-06-17] MEDS: MICONAZOLE NITRATE POWDER 43 GM EXT SCH ×3 (08:13→22:14)
[2019-06-17] MEDS: DOCUSATE SODIUM/SENNA 50/8.6MG TAB PO SCH ×2 (08:20→21:13)
[2019-06-17] MEDS: DIGOXIN 0.125 MG TAB PO SCH (16:49)
[2019-06-17] MEDS: TRAZODONE HCL 50 MG TAB PO SCH (21:05)
[2019-06-17] MEDS: SIMVASTATIN 20 MG TAB PO SCH (21:08)
[2019-06-18] MEDS: ACETAMINOPHEN 500 MG TAB PO PRN (03:08)
[2019-06-18] MEDS: LEVOTHYROXINE SODIUM 75 MCG TABLET PO SCH (06:10)
[2019-06-18 07:52] LABS: Hematocrit (blood only) 27.2 % (37-47); Hemoglobin 7.8 g/dL (12.0-16.0)
[2019-06-18 08:05] LABS: BUN Creatinine Ratio 20.7 (10-20); Calcium 9.4 mg/dl (8.5-10.1); Creatinine Clr Calc Pharmacy 35.1 ml/min; Est GFR (African American) 35.4; Est GFR (Non-African American) 30.5; Potassium 3.6 mmol/L (3.5-5.1)
[2019-06-18] MEDS: carvediloL 6.25 MG TAB PO SCH ×2 (08:30→20:38)
[2019-06-18] MEDS: FERROUS SULFATE 325 MG TAB PO SCH ×2 (08:30→17:29)
[2019-06-18] MEDS: FUROSEMIDE 20 MG TAB PO SCH ×2 (08:31→17:30)
[2019-06-18] MEDS: ISOSORBIDE MONO EXTENDED REL 30 MG TABCR PO SCH (08:32)
[2019-06-18] MEDS: GABAPENTIN 100 MG CAP PO SCH ×3 (08:32→20:38)
[2019-06-18] MEDS: AMIODARONE 200 MG TAB PO SCH (08:33)
[2019-06-18] MEDS: ASPIRIN 81 MG ECTAB PO SCH (08:33)
[2019-06-18] MEDS: LACTOBACILLUS ACIDOPHILUS (FLORANEX) TAB PO SCH ×4 (08:33→20:39)
[2019-06-18] MEDS: CEFDINIR 300 MG CAP PO SCH ×2 (08:34→20:38)
[2019-06-18] MEDS: APIXABAN 5 MG TABLET PO SCH ×2 (08:34→20:38)
[2019-06-18] MEDS: MICONAZOLE NITRATE POWDER 43 GM EXT SCH ×3 (08:35→20:39)
[2019-06-18] MEDS: INSULIN GLARGINE SOLOSTAR 100 UNITS/ML 3 ML PEN SQ SCH (08:39)
[2019-06-18] MEDS: INSULIN ASPART 100 UNITS/ML 3 ML PEN SC SCH ×4 (08:40→20:39)
[2019-06-18] MEDS: DOCUSATE SODIUM/SENNA 50/8.6MG TAB PO SCH ×2 (09:05→20:42)
--- NOTE | 2019-06-18 09:41 | Hospitalist Progress Note ---
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 K diet 06/13 out patient lab work : Basic metabolic panel every week for X4 weeks results should be faxed to Nephrology Dr Sabina Abel at [facility] ACUTE RENAL FAILURE ON CKD STAGE 3- 4 : Renal failure (ARF), acute on chronic: ckd 4 at baseline w/ creat between 1.6-1.9. presented with elevated Cr 2.5 , current Cr 1.6 appreciate nephrology eval on Lasix to p.o. 20 mg twice daily Bilat lower ext cellulitis : chronic Plain Xray shows no evidence of osteomyelitis Was treated with IV Zosyn appreciate input from ID Antibiotic is changed to p.o. Omnicef, will need long-term p.o. antibiotic course Added Lactinex avoid Bactrim -hyperkalemia /renal failure ( added to allergy list ) Wound care consulted RE follow-up eval for leg wounds/cellulitis-appreciate input pt had recent debridement of lower ext , no repeat debridement needed cont abx and local wound care -per recommendation Acue decompensation of chronic diastolic heart failure (EF of 55 % TTE 2019) resolved pt denies of SOB or Orthopnea Volume status remains stable, treated IV Lasix with adequate diuresis Lasix is changed to p.o. chronic respiratory failure on home O2, CAD: status post stenting, hx LBBB, PVD as per records cont out pt meds -Coreg AFib sp PPM, paced rhythm on amiodarone /digoxin on Eliquis HTN, BP stable cont on Coreg/Imdur DM2 insulin requiring, well-controlled as of recent outpatient hemoglobin A1c of 5.28 March 2019 Chronic anemia secondary to CKD - baseline hgb 8.5-9 On 06/13, Hgb 6.9, and on repeat 6.7 - s/p transfusion of 1 unit of pRBC, consent obtained (provided iv lasix w/ transfusion) - no s/s of acute bleed - stool hemoccult positive, pt is on iron suppl. , stool soft brown/green - cont to monitor, current Hgb 8.1, stable and unchanged from previous days Constipation - pt has had difficulty w/ BMs - did not have BM for several days until now, bowel regimen adjusted - avoid straining Ambulatory dysfunction - cont. PT/OT DVT prophylaxis. Eliquis Conditional CODE STATUS (patient okay with CPR; no intubation) DISPOSITION : was at personal group home will need skill rehab on discharge /referral made to [facility] social service following for dc planning Subjective No acute events overnight, patient sitting up in the chair, in no acute distress, comfortable watching TV and reading newspaper. Denies any fevers, chills, chest pain, shortness of breath, abdominal pain nausea or vomiting. Hgb 7.8 today Cr. 1.6 Review of Systems Review of Systems: All systems reviewed & are unremarkable except as noted in HPI & below As per HPI, all 10 systems reviewed, all other ROS negative Constitutional: no fever and no chills Respiratory: no cough, no dyspnea and no pain on inspiration Cardiovascular: no chest pain, no dyspnea on exertion, no palpitations and no edema Gastrointestinal: no abdominal pain, no nausea and no vomiting Physical Exam Physical Exam: Constitutional: Elderly female,sitting up in chair + obese; in NAD Eyes: PERRL, EOMI, conjunctivae normal, anicteric sclerae ENMT: external ear and nose normal, oropharynx normal Neck: normal visual inspection; supple, no nuchal rigidity Respiratory: normal respiratory effort, clear to auscult. but + diminished lung sounds and + mild crackles (BL bases) Cardiovascular: Rate/Rhythm: regular rate and regular rhythm Extremities: + trace pedal edema b/l, +ulcer/wounds-small clean and mostly dry (clean dressings); no calf tenderness Gastrointestinal (Abdomen): normal bowel sounds, soft,obese, nontender, nondistended, no guarding Musculoskeletal: no cyanosis or clubbing, extremities motor strength 5/5 Skin: no rashes, warm and dry + ulcer (wrapped bl) and + wound (Chronic wounds on lower extremity - image in the chart from 06/13 AM) Neurologic: alert, answers questions appropriately Psychiatric: A+Ox3, flat affect, cooperative Results & Data Vital Signs (Past 12 Hours) Vital Signs Temp Pulse Resp BP Pulse Ox 06/18/19 07:09 36.5 C 60 16 128/63 98 06/17/19 23:16 36.6 C 59 L 20 124/55 L 100 Laboratory Results 06/18/19 06/18/19 06/18/19 Range/Units 07:32 06:45 06:45 Hgb 7.8 L (12.0-16.0) g/dL Hct 27.2 L (37-47) % Sodium 140 (136-145) mmol/L Potassium 3.6 (3.5-5.1) mmol/L Chloride 101 (98-107) mmol/L Carbon Dioxide 37 H (21-32) mmol/L Anion Gap 3.0 (3-11) BUN 34 H (7-18) mg/dl Creatinine 1.63 H (0.6-1.2) mg/dl Est Cr Clr Drug Dosing 35.1 ml/min Est GFR ( Amer) 35.4 Est GFR (Non-Af Amer) 30.5 BUN/Creatinine Ratio 20.7 H (10-20) Glucose 88 (70-99) mg/dl POC Glucose 119 H (70-99) Calcium 9.4 (8.5-10.1) mg/dl 06/17/19 06/17/19 06/17/19 Range/Units 20:37 16:39 11:39 Hgb (12.0-16.0) g/dL Hct (37-47) % Sodium (136-145) mmol/L Potassium (3.5-5.1) mmol/L Chloride (98-107) mmol/L Carbon Dioxide (21-32) mmol/L Anion Gap (3-11) BUN (7-18) mg/dl Creatinine (0.6-1.2) mg/dl Est Cr Clr Drug Dosing ml/min Est GFR ( Amer) Est GFR (Non-Af Amer) BUN/Creatinine Ratio (10-20) Glucose (70-99) mg/dl POC Glucose 179 H 172 H 138 H (70-99) Calcium (8.5-10.1) mg/dl Medications Administered Current Inpatient Medications Acetaminophen (Tylenol) 1,000 mg PO Q6 PRN PRN Reason: Pain Stop: 07/10/19 09:32 Last Admin: 06/18/19 03:08 Dose: 1,000 mg Documented by: Amiodarone HCl (Cordarone) 200 mg PO QAM [facility] Stop: 07/06/19 08:59 Last Admin: 06/18/19 08:33 Dose: 200 mg Documented by: Apixaban (Eliquis) 5 mg PO BID [facility] Stop: 07/06/19 20:59 Last Admin: 06/18/19 08:34 Dose: 5 mg Documented by: Aspirin (Ecotrin Ectab) 81 mg PO QAM [facility] Stop: 07/07/19 08:59 Last Admin: 06/18/19 08:33 Dose: 81 mg Documented by: Bisacodyl (Dulcolax) 5 mg PO QAM PRN PRN Reason: Constipation Stop: 07/13/19 22:51 Last Admin: 06/15/19 21:10 Dose: 5 mg Documented by: Bisacodyl (Dulcolax) 10 mg [place] BID PRN PRN Reason: Constipation Stop: 07/14/19 21:19 Carvedilol (Coreg) 6.25 mg PO BID [facility] Stop: 07/06/19 08:59 Last Admin: 06/18/19 08:30 Dose: 6.25 mg Documented by: Cefdinir (Omnicef Cap) 300 mg PO BID [facility]; Protocol Stop: 06/24/19 08:59 Last Admin: 06/18/19 08:34 Dose: 300 mg Documented by: Dextrose (Dextrose 50%) 25 - 50 ml IV UD PRN; Protocol PRN Reason: Hypoglycemia Protocol Stop: 07/05/19 23:45 Digoxin (Lanoxin) 0.125 mg PO Q2D@1600 [facility] Stop: 07/07/19 15:59 Last Admin: 06/17/19 16:49 Dose: 0.125 mg Documented by: Ferrous Sulfate (Feosol) 325 mg PO BIDM [facility] Stop: 07/06/19 07:59 Last Admin: 06/18/19 08:30 Dose: 325 mg Documented by: Furosemide (Lasix) 20 mg PO BID17 [facility] Stop: 07/10/19 16:59 Last Admin: 06/18/19 08:31 Dose: 20 mg Documented by: Gabapentin (Neurontin) 100 mg PO TID [facility] Stop: 07/06/19 08:59 Last Admin: 06/18/19 08:32 Dose: 100 mg Documented by: Glucagon (Glucagen) 1 mg SQ UD PRN; Protocol PRN Reason: Hypoglycemia Protocol Stop: 07/05/19 23:45 Glucose (Dex4 Glucose) 4 - 8 tabs PO UD PRN; Protocol PRN Reason: Hypoglycemia Protocol Stop: 07/05/19 23:45 Glucose (Glucose 40%) 15 - 30 gm PO UD PRN; Protocol PRN Reason: Hypoglycemia Protocol Stop: 07/05/19 23:45 Promethazine HCl 12.5 mg/ (Sodium Chloride) 50.5 mls @ 202 mls/hr IV Q6H PRN PRN Reason: Nausea And Vomiting Stop: 07/05/19 23:45 Last Infusion: 06/10/19 21:51 Dose: Infused Documented by: Insulin Aspart (Novolog Flexpen) 0 units SC ACHS [facility] Stop: 07/05/19 23:45 Last Admin: 06/18/19 08:40 Dose: 2 units Documented by: Insulin Glargine (Lantus Solostar Pen) 5 units SQ DAILY [facility] Stop: 07/07/19 08:59 Last Admin: 06/18/19 08:39 Dose: 5 units Documented by: Isosorbide Mononitrate (Imdur Extended Rel) 30 mg PO DAILY [facility] Stop: 07/06/19 08:59 Last Admin: 06/18/19 08:32 Dose: 30 mg Documented by: Lactobacillus Acidophilus (Floranex) 4 tab PO QIDM [facility] Stop: 07/11/19 11:59 Last Admin: 06/18/19 08:33 Dose: 4 tab Documented by: Levothyroxine Sodium (Synthroid) 75 mcg PO DAILYBB [facility] Stop: 07/06/19 06:29 Last Admin: 06/18/19 06:10 Dose: 75 mcg Documented by: Miconazole Nitrate (Desenex) 1 appln EXT TID [facility] Stop: 07/06/19 13:59 Last Admin: 06/18/19 08:35 Dose: 1 appln Documented by: Miconazole Nitrate (Desenex) 1 appln TOP PRN PRN PRN Reason: SKIN FOLDS Stop: 07/10/19 09:44 Miscellaneous (Carbohydrates For Hypoglycemia) 15 - 30 gm PO UD PRN PRN Reason: Hypoglycemia Protocol Stop: 07/05/19 23:45 Nitroglycerin (Nitrostat) 0.4 mg SL UD PRN PRN Reason: Chest Pain Stop: 07/05/19 23:45 Polyethylene Glycol (Miralax Powder Packet) 17 gm PO TID PRN PRN Reason: Constipation Stop: 07/14/19 21:18 Senna/Docusate Sodium (Senokot S) 1 tab PO BID [facility] Stop: 07/06/19 08:59 Last Admin: 06/17/19 21:13 Dose: 1 tab Documented by: Simvastatin (Zocor) 20 mg PO QPM [facility] Stop: 07/06/19 20:59 Last Admin: 06/17/19 21:08 Dose: 20 mg Documented by: Tramadol HCl (Ultram) 25 - 50 mg PO Q4H PRN PRN Reason: Pain Stop: 07/05/19 23:45 Last Admin: 06/08/19 23:28 Dose: 50 mg Documented by: Trazodone HCl (Desyrel) 50 mg PO HS [facility] Stop: 07/06/19 20:59 Last Admin: 06/17/19 21:05 Dose: 50 mg Documented by: (1) Renal failure (ARF), acute on chronic Acute renal failure type: unspecified Chronic kidney disease stage: stage 3 (moderate) Qualified Code(s): N17.9 - Acute kidney failure, unspecified; N18.3 - Chronic kidney disease, stage 3 (moderate)
[2019-06-18] MEDS: PROMETHAZINE HCL 12.5 MG in SODIUM CHLORIDE 0.9% 50 ML IV PRN (17:20)
[2019-06-18] MEDS: TRAZODONE HCL 50 MG TAB PO SCH (20:38)
[2019-06-18] MEDS: SIMVASTATIN 20 MG TAB PO SCH (20:38)
[2019-06-19] MEDS: LEVOTHYROXINE SODIUM 75 MCG TABLET PO SCH (05:37)
--- NOTE | 2019-06-19 07:51 | Hospitalist Progress Note ---
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 K diet 06/13 outpatient lab work : Basic metabolic panel every week for X4 weeks results should be faxed to Nephrology Dr Sabina Abel at [facility] ACUTE RENAL FAILURE ON CKD STAGE 3- 4 : Renal failure (ARF), acute on chronic: ckd 4 at baseline w/ creat between 1.6-1.9. presented with elevated Cr 2.5 , current Cr 1.6 appreciate nephrology eval on Lasix to p.o. 20 mg twice daily Bilat lower ext cellulitis : chronic Plain Xray shows no evidence of osteomyelitis Was treated with IV Zosyn appreciate input from ID Antibiotic is changed to p.o. Omnicef, will need long-term p.o. antibiotic course - per ID note, recommend 21 days (after d/c) - as pt has prolonged hospitalization d/t discharge/placement issues,estim. end date 06/25 Added Lactinex avoid Bactrim -hyperkalemia /renal failure ( added to allergy list ) Wound care consulted RE follow-up eval for leg wounds/cellulitis-appreciate input pt had recent debridement of lower ext , no repeat debridement needed cont abx and local wound care -per recommendation Acute decompensation of chronic diastolic heart failure (EF of 55 % TTE 2018) resolved pt denies SOB or Orthopnea Volume status remains stable, treated with IV Lasix with adequate diuresis - Lasix is changed to p.o. Chronic respiratory failure on home O2, on 1-2 L/min as needed during the day and at night CAD: status post stenting, hx LBBB, PVD as per records cont out pt meds -Coreg AFib sp PPM, paced rhythm on amiodarone /digoxin on Eliquis HTN, BP stable cont on Coreg/Imdur DM2 insulin requiring, well-controlled as of recent outpatient hemoglobin A1c of 5.28 March 2019 Chronic anemia secondary to CKD - baseline hgb 8.5-9 On 06/13, Hgb 6.9, and on repeat 6.7 - s/p transfusion of 1 unit of pRBC, consent obtained (provided iv lasix w/ transfusion) - no s/s of acute bleed - stool hemoccult positive, pt is on iron suppl. , stool soft brown/green - cont to monitor, current Hgb 8.1, stable and unchanged from previous days Constipation - pt has had difficulty w/ BMs - bowel regimen adjusted - avoid straining Ambulatory dysfunction - cont. PT/OT DVT prophylaxis. Eliquis Conditional CODE STATUS (patient okay with CPR; no intubation) DISPOSITION : was at personal longterm will need skill rehab on discharge /referral made to [facility] social service following for dc planning Subjective No acute events overnight, patient sitting up in the chair, in no acute distress. Denies any fevers, chills, chest pain, shortness of breath, abdominal pain nausea or vomiting. She is inquiring about going home, as she was supposed to spend Anali ame with her friend. Review of Systems Review of Systems: All systems reviewed & are unremarkable except as noted in HPI & below As per HPI, all 10 systems reviewed, all other ROS negative Constitutional: no fever, no chills and no fatigue Respiratory: no cough, no dyspnea and no pain on inspiration Cardiovascular: no chest pain and no palpitations Gastrointestinal: no abdominal pain, no nausea and no vomiting Physical Exam Physical Exam: Constitutional: Elderly female,sitting up in chair + obese; in NAD Eyes: PERRL, EOMI, conjunctivae normal, anicteric sclerae ENMT: external ear and nose normal, oropharynx normal Neck: normal visual inspection; supple, no nuchal rigidity Respiratory: poor respiratory effort, clear to auscult. but + diminished lung sounds at bases Cardiovascular: Rate/Rhythm: regular rate and regular rhythm Extremities: + trace pedal edema b/l, +ulcer/wounds-small clean and mostly dry (clean dressings); no calf tenderness Gastrointestinal (Abdomen): normal bowel sounds, soft,obese, nontender, nondistended, no guarding Musculoskeletal: no cyanosis or clubbing, extremities motor strength 5/5 Skin: no rashes, warm and dry + ulcer (wrapped b/l) and + wound (chronic wounds on lower extremity, much improved) Neurologic: alert, answers questions appropriately Psychiatric: A+Ox3, flat affect, cooperative Results & Data Vital Signs (Past 12 Hours) Vital Signs Temp Pulse Resp BP Pulse Ox 06/19/19 06:47 36.5 C 64 16 139/74 92 06/18/19 22:26 36.6 C 61 21 144/75 H 90 Medications Administered Current Inpatient Medications Acetaminophen (Tylenol) 1,000 mg PO Q6 PRN PRN Reason: Pain Stop: 07/10/19 09:32 Last Admin: 06/18/19 03:08 Dose: 1,000 mg Documented by: Amiodarone HCl (Cordarone) 200 mg PO QAM [facility] Stop: 07/06/19 08:59 Last Admin: 06/18/19 08:33 Dose: 200 mg Documented by: Apixaban (Eliquis) 5 mg PO BID [facility] Stop: 07/06/19 20:59 Last Admin: 06/18/19 20:38 Dose: 5 mg Documented by: Aspirin (Ecotrin Ectab) 81 mg PO QAM [facility] Stop: 07/07/19 08:59 Last Admin: 06/18/19 08:33 Dose: 81 mg Documented by: Bisacodyl (Dulcolax) 5 mg PO QAM PRN PRN Reason: Constipation Stop: 07/13/19 22:51 Last Admin: 06/15/19 21:10 Dose: 5 mg Documented by: Bisacodyl (Dulcolax) 10 mg [place] BID PRN PRN Reason: Constipation Stop: 07/14/19 21:19 Carvedilol (Coreg) 6.25 mg PO BID [facility] Stop: 07/06/19 08:59 Last Admin: 06/18/19 20:38 Dose: 6.25 mg Documented by: Cefdinir (Omnicef Cap) 300 mg PO BID [facility]; Protocol Stop: 06/24/19 08:59 Last Admin: 06/18/19 20:38 Dose: 300 mg Documented by: Dextrose (Dextrose 50%) 25 - 50 ml IV UD PRN; Protocol PRN Reason: Hypoglycemia Protocol Stop: 07/05/19 23:45 Digoxin (Lanoxin) 0.125 mg PO Q2D@1600 [facility] Stop: 07/07/19 15:59 Last Admin: 06/17/19 16:49 Dose: 0.125 mg Documented by: Ferrous Sulfate (Feosol) 325 mg PO BIDM [facility] Stop: 07/06/19 07:59 Last Admin: 06/18/19 17:29 Dose: 325 mg Documented by: Furosemide (Lasix) 20 mg PO BID17 [facility] Stop: 07/10/19 16:59 Last Admin: 06/18/19 17:30 Dose: 20 mg Documented by: Gabapentin (Neurontin) 100 mg PO TID [facility] Stop: 07/06/19 08:59 Last Admin: 06/18/19 20:38 Dose: 100 mg Documented by: Glucagon (Glucagen) 1 mg SQ UD PRN; Protocol PRN Reason: Hypoglycemia Protocol Stop: 07/05/19 23:45 Glucose (Dex4 Glucose) 4 - 8 tabs PO UD PRN; Protocol PRN Reason: Hypoglycemia Protocol Stop: 07/05/19 23:45 Glucose (Glucose 40%) 15 - 30 gm PO UD PRN; Protocol PRN Reason: Hypoglycemia Protocol Stop: 07/05/19 23:45 Promethazine HCl 12.5 mg/ (Sodium Chloride) 50.5 mls @ 202 mls/hr IV Q6H PRN PRN Reason: Nausea And Vomiting Stop: 07/05/19 23:45 Last Infusion: 06/18/19 17:45 Dose: Infused Documented by: Insulin Aspart (Novolog Flexpen) 0 units SC ACHS [facility] Stop: 07/05/19 23:45 Last Admin: 06/18/19 20:39 Dose: 1 units Documented by: Insulin Glargine (Lantus Solostar Pen) 5 units SQ DAILY [facility] Stop: 07/07/19 08:59 Last Admin: 06/18/19 08:39 Dose: 5 units Documented by: Isosorbide Mononitrate (Imdur Extended Rel) 30 mg PO DAILY [facility] Stop: 07/06/19 08:59 Last Admin: 06/18/19 08:32 Dose: 30 mg Documented by: Lactobacillus Acidophilus (Floranex) 4 tab PO QIDM [facility] Stop: 07/11/19 11:59 Last Admin: 06/18/19 20:39 Dose: 4 tab Documented by: Levothyroxine Sodium (Synthroid) 75 mcg PO DAILYBB [facility] Stop: 07/06/19 06:29 Last Admin: 06/19/19 05:37 Dose: 75 mcg Documented by: Miconazole Nitrate (Desenex) 1 appln EXT TID [facility] Stop: 07/06/19 13:59 Last Admin: 06/18/19 20:39 Dose: 1 appln Documented by: Miconazole Nitrate (Desenex) 1 appln TOP PRN PRN PRN Reason: SKIN FOLDS Stop: 07/10/19 09:44 Miscellaneous (Carbohydrates For Hypoglycemia) 15 - 30 gm PO UD PRN PRN Reason: Hypoglycemia Protocol Stop: 07/05/19 23:45 Nitroglycerin (Nitrostat) 0.4 mg SL UD PRN PRN Reason: Chest Pain Stop: 07/05/19 23:45 Polyethylene Glycol (Miralax Powder Packet) 17 gm PO TID PRN PRN Reason: Constipation Stop: 07/14/19 21:18 Senna/Docusate Sodium (Senokot S) 1 tab PO BID [facility] Stop: 07/06/19 08:59 Last Admin: 06/18/19 20:42 Dose: 1 tab Documented by: Simvastatin (Zocor) 20 mg PO QPM [facility] Stop: 07/06/19 20:59 Last Admin: 06/18/19 20:38 Dose: 20 mg Documented by: Tramadol HCl (Ultram) 25 - 50 mg PO Q4H PRN PRN Reason: Pain Stop: 07/05/19 23:45 Last Admin: 06/08/19 23:28 Dose: 50 mg Documented by: Trazodone HCl (Desyrel) 50 mg PO HS [facility] Stop: 07/06/19 20:59 Last Admin: 06/18/19 20:38 Dose: 50 mg Documented by: (1) Renal failure (ARF), acute on chronic Acute renal failure type: unspecified Chronic kidney disease stage: stage 3 (moderate) Qualified Code(s): N17.9 - Acute kidney failure, unspecified; N18.3 - Chronic kidney disease, stage 3 (moderate)
[2019-06-19] MEDS: LACTOBACILLUS ACIDOPHILUS (FLORANEX) TAB PO SCH ×4 (08:57→20:35)
[2019-06-19] MEDS: carvediloL 6.25 MG TAB PO SCH ×2 (08:57→20:35)
[2019-06-19] MEDS: ISOSORBIDE MONO EXTENDED REL 30 MG TABCR PO SCH (08:57)
[2019-06-19] MEDS: ASPIRIN 81 MG ECTAB PO SCH (08:58)
[2019-06-19] MEDS: AMIODARONE 200 MG TAB PO SCH (08:58)
[2019-06-19] MEDS: FUROSEMIDE 20 MG TAB PO SCH ×2 (08:58→17:06)
[2019-06-19] MEDS: APIXABAN 5 MG TABLET PO SCH ×2 (08:58→20:35)
[2019-06-19] MEDS: GABAPENTIN 100 MG CAP PO SCH ×3 (08:59→20:35)
[2019-06-19] MEDS: MICONAZOLE NITRATE POWDER 43 GM EXT SCH ×3 (08:59→20:37)
[2019-06-19] MEDS: CEFDINIR 300 MG CAP PO SCH ×2 (08:59→20:34)
[2019-06-19] MEDS: FERROUS SULFATE 325 MG TAB PO SCH ×2 (08:59→17:06)
[2019-06-19] MEDS: INSULIN GLARGINE SOLOSTAR 100 UNITS/ML 3 ML PEN SQ SCH (09:00)
[2019-06-19] MEDS: INSULIN ASPART 100 UNITS/ML 3 ML PEN SC SCH ×4 (09:00→20:36)
[2019-06-19] MEDS: DOCUSATE SODIUM/SENNA 50/8.6MG TAB PO SCH ×2 (10:26→20:34)
[2019-06-19] MEDS: bisacodyL 5 MG TABEC PO PRN (10:27)
[2019-06-19] MEDS: DIGOXIN 0.125 MG TAB PO SCH (15:48)
[2019-06-19] MEDS: SIMVASTATIN 20 MG TAB PO SCH (20:35)
[2019-06-19] MEDS: TRAZODONE HCL 50 MG TAB PO SCH (20:35)
[2019-06-20] MEDS: LEVOTHYROXINE SODIUM 75 MCG TABLET PO SCH (05:40)
[2019-06-20 06:47] LABS: BUN Creatinine Ratio 20.5 (10-20); Calcium 9.1 mg/dl (8.5-10.1); Creatinine Clr Calc Pharmacy 34.9 ml/min; Est GFR (African American) 35.4; Est GFR (Non-African American) 30.5; Potassium 3.7 mmol/L (3.5-5.1)
[2019-06-20 06:49] LABS: Hematocrit (blood only) 27.2 % (37-47); Hemoglobin 7.7 g/dL (12.0-16.0); Mean Corpuscular Hemoglobin 27.3 pg (25-34); Mean Corpuscular Hgb Conc 28.3 g/dL (32-36); Mean Corpuscular Volume 96.5 fL (80-100); Mean Platelet Volume 8.3 fL (7.4-10.4); Platelet Count 195 K/uL (130-400); RDW Coefficient of Variation 19.3 % (11.5-14.5); RDW Standard Deviation 68.4 fL (36.4-46.3); Red Blood Count 2.82 M/uL (4.2-5.4); White Blood Count 4.49 K/uL (4.8-10.8)
[2019-06-20] MEDS: carvediloL 6.25 MG TAB PO SCH ×3 (08:29→21:02)
[2019-06-20] MEDS: ASPIRIN 81 MG ECTAB PO SCH (08:29)
[2019-06-20] MEDS: INSULIN ASPART 100 UNITS/ML 3 ML PEN SC SCH ×4 (08:31→20:53)
[2019-06-20] MEDS: AMIODARONE 200 MG TAB PO SCH (08:31)
[2019-06-20] MEDS: LACTOBACILLUS ACIDOPHILUS (FLORANEX) TAB PO SCH ×4 (08:33→21:24)
[2019-06-20] MEDS: FUROSEMIDE 20 MG TAB PO SCH ×2 (08:33→17:23)
[2019-06-20] MEDS: GABAPENTIN 100 MG CAP PO SCH ×3 (08:33→21:02)
[2019-06-20] MEDS: INSULIN GLARGINE SOLOSTAR 100 UNITS/ML 3 ML PEN SQ SCH (08:34)
[2019-06-20] MEDS: APIXABAN 5 MG TABLET PO SCH ×2 (08:34→21:02)
[2019-06-20] MEDS: FERROUS SULFATE 325 MG TAB PO SCH ×2 (08:34→17:45)
[2019-06-20] MEDS: CEFDINIR 300 MG CAP PO SCH ×2 (08:34→21:01)
[2019-06-20] MEDS: ISOSORBIDE MONO EXTENDED REL 30 MG TABCR PO SCH (08:35)
[2019-06-20] MEDS: MICONAZOLE NITRATE POWDER 43 GM EXT SCH ×3 (08:35→21:04)
[2019-06-20] MEDS: DOCUSATE SODIUM/SENNA 50/8.6MG TAB PO SCH ×2 (08:38→21:01)
--- NOTE | 2019-06-20 11:01 | Hospitalist Progress Note ---
Date of Service June 20, 2019 Assessment & Plan (1) Renal failure (ARF), acute on chronic: ARF on CKD stage 3-4, Hyperkalemia (Resolved) Baseline CKD stage IV, creatinine between 1.61.9 Admitted with acute renal failure with electrolyte imbalance ( hyperkalemia ) Resolved improvement of renal function with resolution of hyperkalemia, current Cr improved to 1.6 Possibly secondary to antibiotic induced: Was on month-long Bactrim Rx for recurrent LE cellulitis/chronic venous stasis ulcers (MSSA/Sternotrophomonas on wound CS)- appreciate input from Nephrology Bactrim D/umesh ( added to allergy list -to avoid future exposure) treated with -Lasix albumin, regular insulin for hyperkalemia Potassium level has been normalized since outpatient lab work : Basic metabolic panel every week for X4 weeks results should be faxed to Nephrology Dr Sabina Abel at [facility] ACUTE RENAL FAILURE ON CKD STAGE 3- 4 : Renal failure (ARF), acute on chronic: Resolved: ckd 4 at baseline w/ creat between 1.6-1.9. presented with elevated Cr 2.5 , current Cr 1.6 appreciate nephrology eval on Lasix to p.o. 20 mg twice daily Bilat lower ext cellulitis : chronic Plain Xray shows no evidence of osteomyelitis appreciate input from ID On antibiotic: P.o. Omnicef, will need long-term p.o. antibiotic course - per ID note, recommend 21 days (after d/c) - as pt has prolonged hospitalization d/t discharge/placement issues,estim. end date 06/25 Added Lactinex avoid Bactrim -hyperkalemia /renal failure ( added to allergy list ) Wound care consulted RE follow-up eval for leg wounds/cellulitis-appreciate input pt had recent debridement of lower ext , no repeat debridement needed cont abx and local wound care -per recommendation Acute decompensation of chronic diastolic heart failure (EF of 55 % TTE 2018) resolved pt denies SOB or Orthopnea Volume status remains stable, treated with IV Lasix with adequate diuresis - Lasix is changed to p.o. 20 mg p.o. daily Renal function remains stable Chronic respiratory failure on home O2, on 1-2 L/min as needed during the day and at night CAD: status post stenting, hx LBBB, PVD as per records cont out pt meds -Coreg AFib sp PPM, paced rhythm on amiodarone /digoxin on Eliquis HTN, BP stable cont on Coreg/Imdur DM2 insulin requiring, well-controlled as of recent outpatient hemoglobin A1c of 5.28 March 2019 Chronic anemia secondary to CKD stage IV - baseline hgb 8.5-9 On 06/13, Hgb 6.9, and on repeat 6.7 - s/p transfusion of 1 unit of pRBC, consent obtained (provided iv lasix w/ transfusion) - no s/s of acute bleed - stool hemoccult positive, pt is on iron suppl. , stool soft brown/green -Continue to monitor: Hemoglobin 7.7, order for IV Venofer, maude with nephrology regarding Procrit Ambulatory dysfunction - cont. PT/OT DVT prophylaxis. Eliquis Conditional CODE STATUS (patient okay with CPR; no intubation) DISPOSITION : was at personal senior care will need skill rehab on discharge /referral made to [facility] social service following for dc planning Subjective Patient is alert and awake and oriented, conversing appropriately, no sign of distress, no cough, no fever or chills Sitting up on chair, States she feels fine, wants to get discharged, very disappointed that she is spending her and day in hospital Does not want to go to skilled rehab, wants to return back to [facility] " the personal senior care she was living Patient is counseled, due to her chronic lower lower extremity wounds, personal senior care will not be appropriate, she needs higher level care at nursing facility-referral made to [facility] -Case been evaluated by office of aging Patient is adamant to return back to her previous personal senior care on discharge will talk to case management tomorrow regarding her options Physical Exam Constitutional: WD/WN, vitals as above well developed, well nourished, + ill appearing and + obese; no acute distress (up in chair on 02NC 2L) Eyes: PERRL, conjunctivae normal, anicteric sclerae EOM intact bilaterally ENMT: external ear and nose normal, oropharynx normal Ears: no external ear abnormality Nose: no external nose abnormality Mouth: + dry oral mucous membranes Neck: normal visual inspection; no nuchal rigidity Respiratory: normal respiratory effort, lungs clear to auscultation normal respiratory effort Cardiovascular: Rate/Rhythm: regular rate and regular rhythm Extremities: + pedal edema; no calf tenderness Gastrointestinal (Abdomen): normal bowel sounds, soft, nontender, no hepatosplenomegaly Inspection/Auscultation: normal bowel sounds Percussion/Palpation: abdomen soft; abdomen nontender Musculoskeletal: no cyanosis or clubbing, extremities motor strength 5/5 Skin: no rashes, warm and dry + ulcer (wrapped bl) and + wound (Chronic wounds on lower extremity ) Psychiatric: A+Ox3, euthymic affect Orientation: alert, oriented x 3, oriented to person, oriented to place and cooperative Affect: + flat affect Results & Data Vital Signs (Past 12 Hours) Vital Signs Temp Pulse Resp BP Pulse Ox 06/20/19 07:00 36.6 C 60 20 107/65 96 (1) Renal failure (ARF), acute on chronic Acute renal failure type: unspecified Chronic kidney disease stage: stage 3 (moderate) Qualified Code(s): N17.9 - Acute kidney failure, unspecified; N18.3 - Chronic kidney disease, stage 3 (moderate)
[2019-06-20] MEDS ORDERED: IRON SUCROSE 300 MG in SODIUM CHLORIDE 0.9% 250 ML IV SCH (12:30)
[2019-06-20] MEDS: TRAZODONE HCL 50 MG TAB PO SCH (21:02)
[2019-06-20] MEDS: SIMVASTATIN 20 MG TAB PO SCH (21:02)
[2019-06-21 06:02] LABS: Hematocrit (blood only) 27.2 % (37-47); Hemoglobin 7.6 g/dL (12.0-16.0)
[2019-06-21] MEDS: LEVOTHYROXINE SODIUM 75 MCG TABLET PO SCH (06:19)
[2019-06-21] MEDS: ISOSORBIDE MONO EXTENDED REL 30 MG TABCR PO SCH ×3 (08:18→08:52)
[2019-06-21] MEDS: carvediloL 6.25 MG TAB PO SCH ×2 (08:18→21:27)
[2019-06-21] MEDS: LACTOBACILLUS ACIDOPHILUS (FLORANEX) TAB PO SCH ×4 (08:19→21:30)
[2019-06-21] MEDS: INSULIN GLARGINE SOLOSTAR 100 UNITS/ML 3 ML PEN SQ SCH (08:20)
[2019-06-21] MEDS: INSULIN ASPART 100 UNITS/ML 3 ML PEN SC SCH ×4 (08:20→21:43)
[2019-06-21] MEDS: CEFDINIR 300 MG CAP PO SCH ×2 (08:49→21:32)
[2019-06-21] MEDS: APIXABAN 5 MG TABLET PO SCH ×2 (08:50→21:30)
[2019-06-21] MEDS: AMIODARONE 200 MG TAB PO SCH (08:50)
[2019-06-21] MEDS: FERROUS SULFATE 325 MG TAB PO SCH ×2 (08:51→17:42)
[2019-06-21] MEDS: DOCUSATE SODIUM/SENNA 50/8.6MG TAB PO SCH ×2 (08:51→21:47)
[2019-06-21] MEDS: MICONAZOLE NITRATE POWDER 43 GM EXT SCH ×3 (08:51→21:28)
[2019-06-21] MEDS: ASPIRIN 81 MG ECTAB PO SCH (08:51)
[2019-06-21] MEDS: FUROSEMIDE 20 MG TAB PO SCH ×2 (08:51→17:43)
[2019-06-21] MEDS: GABAPENTIN 100 MG CAP PO SCH ×3 (08:53→21:31)
--- NOTE | 2019-06-21 09:13 | Hospitalist Progress Note ---
Date of Service June 21, 2019 Assessment & Plan (1) Renal failure (ARF), acute on chronic: ARF on CKD stage 3-4, Hyperkalemia (Resolved) Baseline CKD stage IV, creatinine between 1.61.9 Admitted with acute renal failure with electrolyte imbalance ( hyperkalemia ) Resolved improvement of renal function with resolution of hyperkalemia, current Cr improved to 1.6 Possibly secondary to antibiotic induced: Was on month-long Bactrim Rx for recurrent LE cellulitis/chronic venous stasis ulcers (MSSA/Sternotrophomonas on wound CS)- appreciate input from Nephrology Bactrim D/umesh ( added to allergy list -to avoid future exposure) treated with -Lasix albumin, regular insulin for hyperkalemia Potassium level has been normalized since outpatient lab work : Basic metabolic panel every week for X4 weeks results should be faxed to Nephrology Dr Sabina Abel at [facility] ACUTE RENAL FAILURE ON CKD STAGE 3- 4 : Renal failure (ARF), acute on chronic: Resolved: ckd 4 at baseline w/ creat between 1.6-1.9. presented with elevated Cr 2.5 , current Cr 1.6 appreciate nephrology eval on Lasix to p.o. 20 mg twice daily And will need weekly BMP check as an outpatient Bilat lower ext cellulitis : chronic Plain Xray shows no evidence of osteomyelitis appreciate input from ID On antibiotic: P.o. Omnicef, will need long-term p.o. antibiotic course - per ID note, recommend 21 days (after d/c) - as pt has prolonged hospitalization d/t discharge/placement issues,estim. end date 06/25 Added Lactinex avoid Bactrim -hyperkalemia /renal failure ( added to allergy list ) Wound care consulted RE follow-up eval for leg wounds/cellulitis-appreciate input pt had recent debridement of lower ext , no repeat debridement needed cont abx and local wound care -per recommendation Acute decompensation of chronic diastolic heart failure (EF of 55 % TTE 2018) resolved pt denies SOB or Orthopnea Volume status remains stable, treated with IV Lasix with adequate diuresis - Lasix is changed to p.o. 20 mg p.o. daily Renal function remains stable Chronic respiratory failure on home O2, on 1-2 L/min as needed during the day and at night CAD: status post stenting, hx LBBB, PVD as per records cont out pt meds -Coreg AFib sp PPM, paced rhythm on amiodarone /digoxin on Eliquis HTN, BP stable cont on Coreg/Imdur DM2 insulin requiring, well-controlled as of recent outpatient hemoglobin A1c of 5.28 March 2019 Chronic anemia secondary to CKD stage IV - baseline hgb 8.5-9 On 06/13, Hgb 6.9, and on repeat 6.7 - s/p transfusion of 1 unit of pRBC, consent obtained (provided iv lasix w/ transfusion) - no s/s of acute bleed - stool hemoccult positive, pt is on iron suppl. , stool soft brown/green Patient given IV Venofer Appreciate input from nephrology, given Procrit Continue monitor H&H Ambulatory dysfunction - cont. PT/OT DVT prophylaxis. Eliquis Conditional CODE STATUS (patient okay with CPR; no intubation) DISPOSITION : was at personal skilled nursing will need skill rehab on discharge /referral made to [facility] social service following for dc planning Subjective offers no new complain wants to be discharged from hospital as soon as possible Hoping to return back to personal skilled nursing " [facility]" No cough, no complaint of shortness of breath no fever or chills As of any pain or discomfort Review of Systems Review of Systems: All systems reviewed & are unremarkable except as noted in HPI & below Physical Exam Constitutional: WD/WN, vitals as above well developed, well nourished, + i ll appearing and + obese; no acute distress (up in chair on 02NC 2L) Eyes: PERRL, conjunctivae normal, anicteric sclerae EOM intact bilaterally ENMT: external ear and nose normal, oropharynx normal Ears: no external ear abnormality Nose: no external nose abnormality Mouth: + dry oral mucous membranes Neck: normal visual inspection; no nuchal rigidity Respiratory: normal respiratory effort, lungs clear to auscultation normal respiratory effort Auscultation: + breath sounds absent (L base), + diminished lung sounds and + crackles (BLbases) Cardiovascular: Rate/Rhythm: regular rate and regular rhythm Extremities: + pedal edema; no calf tenderness Gastrointestinal (Abdomen): normal bowel sounds, soft, nontender, no hepatosplenomegaly Inspection/Auscultation: normal bowel sounds Percussion/Palpation: abdomen soft; abdomen nontender Musculoskeletal: no cyanosis or clubbing, extremities motor strength 5/5 Skin: no rashes, warm and dry + ulcer (wrapped bl) and + wound (Chronic wounds on lower extremity ) Neurologic: awake (drowsy); not confused Psychiatric: A+Ox3, euthymic affect Orientation: alert, oriented x 3, oriented to person, oriented to place and cooperative Affect: + flat affect Results & Data Vital Signs (Past 12 Hours) Vital Signs Temp Pulse Resp BP Pulse Ox 06/21/19 07:21 36.9 C 60 18 104/54 L 97 06/20/19 23:50 36.8 C 60 18 107/66 98 (1) Renal failure (ARF), acute on chronic Acute renal failure type: unspecified Chronic kidney disease stage: stage 3 (moderate) Qualified Code(s): N17.9 - Acute kidney failure, unspecified; N18.3 - Chronic kidney disease, stage 3 (moderate)
[2019-06-21] MEDS ORDERED: IRON SUCROSE 300 MG in SODIUM CHLORIDE 0.9% 250 ML IV SCH (11:30)
[2019-06-21 11:51] LABS: Iron 90 mcg/dl (35-150); Transferrin 190 mg/dl (200-360); Transferrin Percent Saturation 34 % (15-50)
[2019-06-21] MEDS ORDERED: EPOETIN ALFA 20,000 UNITS/ML VIAL SQ ONE (12:00)
[2019-06-21] MEDS: DIGOXIN 0.125 MG TAB PO SCH (17:42)
--- NOTE | 2019-06-21 17:54 | Nephrology Progress Note ---
Date of Service June 21, 2019 Assessment & Plan (1) CKD (chronic kidney disease), stage IV: ckd 4 remains at baseline w/ creatinine 1.6-1.9. presenting creat 2.4, K 6.5 as OP and high 5's on presentation. also w/ high mag. admission urine sediment bland > no GN, no infection, no inflammation. suspect elevated creat and K d/t bactrim; however concern for HFpEF as well given increased 02 needs which have persisted; also HFpEF notable on admission d/t elevated creat, CXR. gentle diuresis; no indication to discuss dialysis at this time -hold bactrim, listed now as allergy/intolerance -gentle diuresis as below> cont FR 1.5L/d ->>>>>at d/c weekly bmp x r under my name<pls ask d/c project planner to order in [employer]; keep ckd clinic f/u as previously scheduled (literally sent her to hospital after labs from clinic; no need to see back immediately unless issues) ->>>>>at d/c recommend that d/c project planner send staff message in [employer] to renal nurse marcell goncalves ([email or web address] = username) and to me so that we can enroll her in anemia clinic (difficult to do while in hospital) -in house q 48-72 hr bmp > at baseline w/ acceptable chemistries -will sign off; pls call if ? (2) Anemia: her iron stores are replete; >>>>no further venofer needed got epo 30708 units SQ x 1 on 06/21 -hgb q24-48 hrs while in house Present on Admission?: Yes Subjective seen on rounds this am; no c/o leg pain; states breathing at baseline; tolerating po; no voiding concerns Review of Systems Review of Systems: All systems reviewed & are unremarkable except as noted in HPI & below Physical Exam Constitutional: well developed, well nourished and + obese; no acute distress (sitting in chair on 02NC 2L; dosing but wakens fully) Eyes: EOM intact bilaterally ENMT: Ears: no external ear abnormality Nose: no external nose abnormality Mouth: + dry oral mucous membranes Neck: no nuchal rigidity Respiratory: normal respiratory effort Auscultation: + diminished lung sounds Cardiovascular: Rate/Rhythm: regular rate and regular rhythm Extremities: + edema (trace BLE indurated) Gastrointestinal (Abdomen): Inspection/Auscultation: normal bowel sounds Percussion/Palpation: abdomen soft; abdomen nontender Skin: no rashes, warm and dry + ulcer (wrapped bl) Neurologic: rueda, limited speech, no tremor Psychiatric: Orientation: alert and oriented x 3 Affect: + flat affect Results & Data Vital Signs (Past 12 Hours) Vital Signs Temp Pulse Pulse Resp BP Pulse Ox 06/21/19 17:42 64 06/21/19 14:42 36.7 C 60 20 94/55 L 98 06/21/19 07:21 36.9 C 60 18 104/54 L 97 Laboratory Results 06/21/19 05:49 06/20/19 05:50 (1) Anemia Anemia type: due to chronic kidney disease Chronic kidney disease stage: stage 4 (severe) Qualified Code(s): N18.4 - Chronic kidney disease, stage 4 (severe); D63.1 - Anemia in chronic kidney disease
[2019-06-21] MEDS: TRAZODONE HCL 50 MG TAB PO SCH (21:28)
[2019-06-21] MEDS: SIMVASTATIN 20 MG TAB PO SCH (21:33)
[2019-06-22] MEDS: LEVOTHYROXINE SODIUM 75 MCG TABLET PO SCH (06:04)
[2019-06-22] MEDS: LACTOBACILLUS ACIDOPHILUS (FLORANEX) TAB PO SCH ×4 (08:01→21:57)
[2019-06-22] MEDS: FERROUS SULFATE 325 MG TAB PO SCH ×2 (08:01→17:58)
[2019-06-22] MEDS: AMIODARONE 200 MG TAB PO SCH (08:02)
[2019-06-22] MEDS: carvediloL 6.25 MG TAB PO SCH ×2 (08:03→22:03)
[2019-06-22] MEDS: ASPIRIN 81 MG ECTAB PO SCH (08:04)
[2019-06-22] MEDS: FUROSEMIDE 20 MG TAB PO SCH ×2 (08:04→17:57)
[2019-06-22] MEDS: APIXABAN 5 MG TABLET PO SCH ×2 (08:04→22:04)
[2019-06-22] MEDS: CEFDINIR 300 MG CAP PO SCH ×2 (08:05→22:03)
[2019-06-22] MEDS: GABAPENTIN 100 MG CAP PO SCH ×3 (08:05→22:05)
[2019-06-22] MEDS: DOCUSATE SODIUM/SENNA 50/8.6MG TAB PO SCH ×2 (09:06→22:06)
[2019-06-22] MEDS: MICONAZOLE NITRATE POWDER 43 GM EXT SCH ×3 (09:06→22:04)
[2019-06-22] MEDS: INSULIN ASPART 100 UNITS/ML 3 ML PEN SC SCH ×4 (09:08→22:12)
[2019-06-22] MEDS: INSULIN GLARGINE SOLOSTAR 100 UNITS/ML 3 ML PEN SQ SCH (09:08)
--- NOTE | 2019-06-22 17:30 | Hospitalist Progress Note ---
Date of Service June 22, 2019 Assessment & Plan (1) Renal failure (ARF), acute on chronic: ARF on CKD stage 3-4, Hyperkalemia (Resolved) Baseline CKD stage IV, creatinine between 1.61.9 Admitted with acute renal failure with electrolyte imbalance ( hyperkalemia ) Resolved improvement of renal function with resolution of hyperkalemia, current Cr improved to 1.6 Possibly secondary to antibiotic induced: Was on month-long Bactrim Rx for recurrent LE cellulitis/chronic venous stasis ulcers (MSSA/Sternotrophomonas on wound CS)- appreciate input from Nephrology Bactrim D/umesh ( added to allergy list -to avoid future exposure) outpatient lab work : Basic metabolic panel every week for X4 weeks results should be faxed to Nephrology Dr Sabina Abel at [facility] ACUTE RENAL FAILURE ON CKD STAGE 3- 4 : Renal failure (ARF), acute on chronic: Resolved: ckd 4 at baseline w/ creat between 1.6-1.9. presented with elevated Cr 2.5 , current Cr 1.6 appreciate nephrology eval on Lasix to p.o. 20 mg twice daily Continue fluid restriction 1.5 L daily will need weekly BMP check as an outpatient Bilat lower ext cellulitis : chronic Plain Xray shows no evidence of osteomyelitis appreciate input from ID On antibiotic: P.o. Omnicef, will need long-term p.o. antibiotic course - per ID note, recommend 21 days (after d/c) - as pt has prolonged hospitalization d/t discharge/placement issues,estim. end date 06/25 Added Lactinex avoid Bactrim -hyperkalemia /renal failure ( added to allergy list ) Wound care consulted RE follow-up eval for leg wounds/cellulitis-appreciate input pt had recent debridement of lower ext , no repeat debridement needed cont abx and local wound care -per recommendation Acute decompensation of chronic diastolic heart failure (EF of 55 % TTE 2018) resolved pt denies SOB or Orthopnea Volume status remains stable, treated with IV Lasix with adequate diuresis - Lasix is changed to p.o. 20 mg p.o. daily Renal function remains stable Chronic respiratory failure on home O2, on 1-2 L/min as needed during the day and at night CAD: status post stenting, hx LBBB, PVD as per records cont out pt meds -Coreg AFib sp PPM, paced rhythm on amiodarone /digoxin on Eliquis HTN, BP stable cont on Coreg/Imdur DM2 insulin requiring, well-controlled as of recent outpatient hemoglobin A1c of 5.28 March 2019 Chronic anemia secondary to CKD stage IV - baseline hgb 8.5-9 On 06/13, Hgb 6.9, and on repeat 6.7 - s/p transfusion of 1 unit of pRBC, consent obtained (provided iv lasix w/ transfusion) - no s/s of acute bleed - stool hemoccult positive, pt is on iron suppl. , stool soft brown/green Patient given IV Venofer Appreciate input from nephrology, given Procrit 22742 units SQ x 1 on 06/21 Further IV Venofer indicated Repeat H&H in a.m. Ambulatory dysfunction - cont. PT/OT DVT prophylaxis. Eliquis Conditional CODE STATUS (patient okay with CPR; no intubation) DISPOSITION : was at personal intermediate will need skill rehab on discharge /referral made to [facility] social service following for dc planning Subjective Offers no new complaint, No fever chills, no cough no shortness of breath no chest pain Review of Systems Review of Systems: All systems reviewed & are unremarkable except as noted in HPI & below Physical Exam Constitutional: WD/WN, vitals as above well developed, well nourished, + ill appearing and + obese; no acute distress (up in chair on 02NC 2L) Eyes: PERRL, conjunctivae normal, anicteric sclerae EOM intact bilaterally ENMT: external ear and nose normal, oropharynx normal Ears: no external ear abnormality Nose: no external nose abnormality Mouth: + dry oral mucous membranes Neck: normal visual inspection; no nuchal rigidity Respiratory: normal respiratory effort, lungs clear to auscultation normal respiratory effort Auscultation: + breath sounds absent (L base), + diminishe d lung sounds and + crackles (BLbases) Cardiovascular: Rate/Rhythm: regular rate and regular rhythm Extremities: + pedal edema; no calf tenderness Gastrointestinal (Abdomen): normal bowel sounds, soft, nontender, no hepatosplenomegaly Inspection/Auscultation: normal bowel sounds Percussion/Palpation: abdomen soft; abdomen nontender Musculoskeletal: no cyanosis or clubbing, extremities motor strength 5/5 Skin: no rashes, warm and dry + ulcer (wrapped bl) and + wound (Chronic wounds on lower extremity ) Neurologic: awake (drowsy); not confused Psychiatric: A+Ox3, euthymic affect Orientation: alert, oriented x 3, oriented to person, oriented to place and cooperative Affect: + flat affect Results & Data Vital Signs (Past 12 Hours) Vital Signs Temp Pulse Resp BP Pulse Ox 06/22/19 15:47 36.7 C 59 L 20 107/69 100 06/22/19 07:38 36.8 C 59 L 18 119/66 98 (1) Renal failure (ARF), acute on chronic Acute renal failure type: unspecified Chronic kidney disease stage: stage 3 (moderate) Qualified Code(s): N17.9 - Acute kidney failure, unspecified; N18.3 - Chronic kidney disease, stage 3 (moderate)
[2019-06-22] MEDS: TRAZODONE HCL 50 MG TAB PO SCH (22:04)
[2019-06-22] MEDS: SIMVASTATIN 20 MG TAB PO SCH (22:06)
[2019-06-23] MEDS: LEVOTHYROXINE SODIUM 75 MCG TABLET PO SCH (06:42)
[2019-06-23 06:49] LABS: Hematocrit (blood only) 27.2 % (37-47); Hemoglobin 7.6 g/dL (12.0-16.0)
[2019-06-23 06:55] LABS: Creatinine Clr Calc Pharmacy 34.8 ml/min; Est GFR (African American) 34.8; Est GFR (Non-African American) 30.1
[2019-06-23] MEDS: ASPIRIN 81 MG ECTAB PO SCH (07:56)
[2019-06-23] MEDS: LACTOBACILLUS ACIDOPHILUS (FLORANEX) TAB PO SCH ×4 (07:57→21:45)
[2019-06-23] MEDS: carvediloL 6.25 MG TAB PO SCH ×2 (07:57→21:44)
[2019-06-23] MEDS: ISOSORBIDE MONO EXTENDED REL 30 MG TABCR PO SCH (07:57)
[2019-06-23] MEDS: GABAPENTIN 100 MG CAP PO SCH ×3 (07:58→21:44)
[2019-06-23] MEDS: AMIODARONE 200 MG TAB PO SCH (07:58)
[2019-06-23] MEDS: APIXABAN 5 MG TABLET PO SCH ×2 (07:59→21:45)
[2019-06-23] MEDS: FUROSEMIDE 20 MG TAB PO SCH ×2 (07:59→16:11)
[2019-06-23] MEDS: MICONAZOLE NITRATE POWDER 43 GM EXT SCH ×3 (08:00→21:46)
[2019-06-23] MEDS: CEFDINIR 300 MG CAP PO SCH ×2 (08:01→21:43)
[2019-06-23] MEDS: FERROUS SULFATE 325 MG TAB PO SCH ×2 (08:53→18:16)
[2019-06-23] MEDS: DOCUSATE SODIUM/SENNA 50/8.6MG TAB PO SCH ×2 (08:53→21:47)
[2019-06-23] MEDS: INSULIN GLARGINE SOLOSTAR 100 UNITS/ML 3 ML PEN SQ SCH (08:56)
[2019-06-23] MEDS: INSULIN ASPART 100 UNITS/ML 3 ML PEN SC SCH ×4 (08:57→21:33)
--- NOTE | 2019-06-23 15:31 | Hospitalist Progress Note ---
Date of Service June 23, 2019 Assessment & Plan (1) Renal failure (ARF), acute on chronic: ARF on CKD stage 3-4, Hyperkalemia (Resolved) Baseline CKD stage IV, creatinine between 1.61.9 Admitted with acute renal failure with electrolyte imbalance ( hyperkalemia ) Resolved improvement of renal function with resolution of hyperkalemia, current Cr improved to 1.6 Possibly secondary to antibiotic induced: Was on month-long Bactrim Rx for recurrent LE cellulitis/chronic venous stasis ulcers (MSSA/Sternotrophomonas on wound CS)- appreciate input from Nephrology Bactrim D/umesh ( added to allergy list -to avoid future exposure) outpatient lab work : Basic metabolic panel every week for X4 weeks results should be faxed to Nephrology Dr Sabnia Abel at [facility] ACUTE RENAL FAILURE ON CKD STAGE 3- 4 : Renal failure (ARF), acute on chronic: Resolved: ckd 4 at baseline w/ creat between 1.6-1.9. presented with elevated Cr 2.5 , current Cr 1.6 appreciate nephrology eval on Lasix to p.o. 20 mg twice daily Continue fluid restriction 1.5 L daily will need weekly BMP check as an outpatient Bilat lower ext cellulitis : chronic Plain Xray shows no evidence of osteomyelitis appreciate input from ID On antibiotic: P.o. Omnicef, will need long-term p.o. antibiotic course - per ID note, recommend 21 days (after d/c) - as pt has prolonged hospitalization d/t discharge/placement issues,estim. end date 06/25 Added Lactinex avoid Bactrim -hyperkalemia /renal failure ( added to allergy list ) Wound care consulted RE follow-up eval for leg wounds/cellulitis-appreciate input pt had recent debridement of lower ext , no repeat debridement needed cont abx and local wound care -per recommendation Acute decompensation of chronic diastolic heart failure (EF of 55 % TTE 2018) resolved pt denies SOB or Orthopnea Volume status remains stable, - Lasix is changed to p.o. 20 mg p.o. daily Renal function remains stable Chronic respiratory failure on home O2, on 1-2 L/min as needed during the day and at night CAD: status post stenting, hx LBBB, PVD as per records On Coreg AFib sp PPM, paced rhythm on amiodarone /digoxin on Eliquis HTN, BP stable cont on Coreg/Imdur DM2 insulin requiring, well-controlled as of recent outpatient hemoglobin A1c of 5.28 March 2019 Chronic anemia secondary to CKD stage IV - baseline hgb 8.5-9 On 06/13, Hgb 6.9, and on repeat 6.7 - s/p transfusion of 1 unit of pRBC, consent obtained (provided iv lasix w/ transfusion) - no s/s of acute bleed - stool hemoccult positive, pt is on iron suppl. , stool soft brown/green Patient given IV Venofer Appreciate input from nephrology, given Procrit 36567 units SQ x 1 on 06/21 Hemoglobin 7.6 today continue to monitor Transfusion will be given for hemoglobin less than 7 or if patient is symptomatic Ambulatory dysfunction - cont. PT/OT DVT prophylaxis. Eliquis Conditional CODE STATUS (patient okay with CPR; no intubation) DISPOSITION : was at [facility] will need skill rehab on discharge / referral made to [facility] social service following for dc planning Subjective Sitting up on chair, offers no complaint, no fever or chills no shortness of breath or cough Very disappointed that she is still in hospital, Wants to be discharged and back to her personal penitentiary Patient got tearful when she was told that she will go to skilled rehab in a different facility Counseling provided, due to her ongoing leg infection medical illness, she needs higher level of care , and being in a skilled rehab would be beneficial Patient is still not confused, she feels she is doing very well, Cannot understand why she cannot return back to her own place Review of Systems Review of Systems: All systems reviewed & are unremarkable except as noted in HPI & below Physical Exam Constitutional: WD/WN, vitals as above well developed, well nourished, + ill appearing and + obese; no acute distress (up in chair on 02NC 2L) Eyes: PERRL, conjunctivae normal, anicteric sclerae EOM intact bilaterally ENMT: external ear and nose normal, oropharynx normal Ears: no external ear abnormality Nose: no external nose abnormality Neck: normal visual inspection; no nuchal rigidity Respiratory: normal respiratory effort, lungs clear to auscultation normal respiratory effort Cardiovascular: Rate/Rhythm: regular rate and regular rhythm Extremities: + pedal edema; no calf tenderness Gastrointestinal (Abdomen): normal bowel sounds, soft, nontender, no hepatosplenomegaly Inspection/Auscultation: normal bowel sounds Percussion/Palpation: abdomen soft; abdomen nontender Musculoskeletal: no cyanosis or clubbing, extremities motor strength 5/5 Skin: no rashes, warm and dry Psychiatric: A+Ox3, euthymic affect Orientation: alert, oriented x 3, oriented to person, oriented to place and cooperative Affect: + flat affect Results & Data Vital Signs (Past 12 Hours) Vital Signs Temp Pulse Resp BP Pulse Ox 06/23/19 09:10 36.8 C 64 18 100/62 99 (1) Renal failure (ARF), acute on chronic Acute renal failure type: unspecified Chronic kidney disease stage: stage 3 (moderate) Qualified Code(s): N17.9 - Acute kidney failure, unspecified; N18.3 - Chronic kidney disease, stage 3 (moderate)
[2019-06-23] MEDS: DIGOXIN 0.125 MG TAB PO SCH (16:11)
[2019-06-23] MEDS: TRAZODONE HCL 50 MG TAB PO SCH (21:43)
[2019-06-23] MEDS: SIMVASTATIN 20 MG TAB PO SCH (21:46)
[2019-06-24] MEDS: LEVOTHYROXINE SODIUM 75 MCG TABLET PO SCH (06:13)
[2019-06-24 06:43] LABS: Creatinine Clr Calc Pharmacy 40.8 ml/min; Est GFR (African American) 42.1; Est GFR (Non-African American) 36.3
[2019-06-24 06:51] LABS: Hemoglobin 7.6 g/dL (12.0-16.0)
[2019-06-24] MEDS: INSULIN ASPART 100 UNITS/ML 3 ML PEN SC SCH ×4 (09:06→21:20)
[2019-06-24] MEDS: FERROUS SULFATE 325 MG TAB PO SCH ×2 (09:06→16:54)
[2019-06-24] MEDS: LACTOBACILLUS ACIDOPHILUS (FLORANEX) TAB PO SCH ×4 (09:07→21:15)
[2019-06-24] MEDS: carvediloL 6.25 MG TAB PO SCH ×2 (09:08→21:15)
[2019-06-24] MEDS: AMIODARONE 200 MG TAB PO SCH (09:08)
[2019-06-24] MEDS: MICONAZOLE NITRATE POWDER 43 GM EXT SCH ×3 (09:09→21:19)
[2019-06-24] MEDS: ISOSORBIDE MONO EXTENDED REL 30 MG TABCR PO SCH (09:09)
[2019-06-24] MEDS: ASPIRIN 81 MG ECTAB PO SCH (09:10)
[2019-06-24] MEDS: APIXABAN 5 MG TABLET PO SCH ×2 (09:10→21:14)
[2019-06-24] MEDS: FUROSEMIDE 20 MG TAB PO SCH ×2 (09:10→16:55)
[2019-06-24] MEDS: INSULIN GLARGINE SOLOSTAR 100 UNITS/ML 3 ML PEN SQ SCH (09:11)
[2019-06-24] MEDS: CEFDINIR 300 MG CAP PO SCH ×2 (09:12→21:14)
[2019-06-24] MEDS: GABAPENTIN 100 MG CAP PO SCH ×3 (09:12→21:14)
[2019-06-24] MEDS: DOCUSATE SODIUM/SENNA 50/8.6MG TAB PO SCH ×2 (09:19→22:01)
--- NOTE | 2019-06-24 17:37 | Hospitalist Progress Note ---
Date of Service June 24, 2019 Assessment & Plan (1) Renal failure (ARF), acute on chronic: ARF on CKD stage 3-4, Hyperkalemia (Resolved) Baseline CKD stage IV, creatinine between 1.61.9 Admitted with acute renal failure with electrolyte imbalance ( hyperkalemia ) Resolved improvement of renal function with resolution of hyperkalemia, current Cr improved to 1.6 Possibly secondary to antibiotic induced: Was on month-long Bactrim Rx for recurrent LE cellulitis/chronic venous stasis ulcers (MSSA/Sternotrophomonas on wound CS)- appreciate input from Nephrology Bactrim D/umesh ( added to allergy list -to avoid future exposure) outpatient lab work : Basic metabolic panel every week for X4 weeks results should be faxed to Nephrology Dr Sabina Abel at [facility] ACUTE RENAL FAILURE ON CKD STAGE 3- 4 : Renal failure (ARF), acute on chronic: Resolved: ckd 4 at baseline w/ creat between 1.6-1.9. presented with elevated Cr 2.5 , current Cr 1.6 appreciate nephrology eval on Lasix to p.o. 20 mg twice daily Continue fluid restriction 1.5 L daily will need weekly BMP check as an outpatient Bilat lower ext cellulitis : chronic Plain Xray shows no evidence of osteomyelitis appreciate input from ID On antibiotic: P.o. Omnicef, will need long-term p.o. antibiotic course - per ID note, recommend 21 days (after d/c) - as pt has prolonged hospitalization d/t discharge/placement issues,estim. end date 06/25 Added Lactinex avoid Bactrim -hyperkalemia /renal failure ( added to allergy list ) Wound care consulted RE follow-up eval for leg wounds/cellulitis-appreciate input pt had recent debridement of lower ext , no repeat debridement needed cont abx and local wound care -per recommendation Acute decompensation of chronic diastolic heart failure (EF of 55 % TTE 2018) resolved pt denies SOB or Orthopnea Volume status remains stable, - Lasix is changed to p.o. 20 mg p.o. daily Renal function remains stable Chronic respiratory failure on home O2, on 1-2 L/min as needed during the day and at night CAD: status post stenting, hx LBBB, PVD as per records On Coreg AFib sp PPM, paced rhythm on amiodarone /digoxin on Eliquis HTN, BP stable cont on Coreg/Imdur DM2 insulin requiring, well-controlled as of recent outpatient hemoglobin A1c of 5.28 March 2019 Chronic anemia secondary to CKD stage IV - baseline hgb 8.5-9 On 06/13, Hgb 6.9, and on repeat 6.7 - s/p transfusion of 1 unit of pRBC, consent obtained (provided iv lasix w/ transfusion) - no s/s of acute bleed - stool hemoccult positive, pt is on iron suppl. , stool soft brown/green Patient given IV Venofer Appreciate input from nephrology, given Procrit 26877 units SQ x 1 on 06/21 hb remained stable 7.6 Transfusion will be given for hemoglobin less than 7 or if patient is symptomatic Ambulatory dysfunction PT OT evaluation appreciated patient will need skilled rehab DVT prophylaxis. Donnaquis Conditional CODE STATUS (patient okay with CPR; no intubation) DISPOSITION : was at personal intermediate will need skill rehab on discharge / referral made to [facility] social service following for dc planning Subjective Offers no new complaint, Feels fine, sitting up in a chair, no cough no shortness of breath no fever or chills Physical Exam Constitutional: WD/WN, vitals as above well developed, well nourished, + ill appearing and + obese; no acute distress (up in chair on 02NC 2L) Eyes: PERRL, conjunctivae normal, anicteric sclerae EOM intact bilaterally ENMT: external ear and nose normal, oropharynx normal Ears: no external ear abnormality Nose: no external nose abnormality Mouth: + dry oral mucous membranes Neck: normal visual inspection; no nuchal rigidity Respiratory: normal respiratory effort, lungs clear to auscultation normal respiratory effort Auscultation: + breath sounds absent (L base), + diminished lung sounds and + crackles (BLbases) Cardiovascular: Rate/Rhythm: regular rate and regular rhythm Extremities: + pedal edema; no calf tenderness Gastrointestinal (Abdomen): normal bowel sounds, soft, nontender, no hepatosplenomegaly Inspection/Auscultation: normal bowel sounds Percussion/Palpation: abdomen soft; abdomen nontender Musculoskeletal: no cyanosis or clubbing, extremities motor strength 5/5 Skin: no rashes, warm and dry + ulcer (wrapped bl) and + wound (Chronic wounds on lower extremity ) Neurologic: awake (drowsy); not confused Psychiatric: A+Ox3, euthymic affect Orientation: alert, oriented x 3, oriented to person, oriented to place and cooperative Affect: + flat affect Results & Data Vital Signs (Past 12 Hours) Vital Signs Temp Pulse Resp BP Pulse Ox 06/24/19 16:57 108/55 L 06/24/19 15:00 36.6 C 60 20 100/56 L 99 (1) Renal failure (ARF), acute on chronic Acute renal failure type: unspecified Chronic kidney disease stage: stage 3 (moderate) Qualified Code(s): N17.9 - Acute kidney failure, unspecified; N18.3 - Chronic kidney disease, stage 3 (moderate)
[2019-06-24] MEDS: SIMVASTATIN 20 MG TAB PO SCH (21:14)
[2019-06-24] MEDS: TRAZODONE HCL 50 MG TAB PO SCH (21:15)
[2019-06-25] MEDS: LEVOTHYROXINE SODIUM 75 MCG TABLET PO SCH (05:46)
[2019-06-25 07:34] LABS: Creatinine Clr Calc Pharmacy 36.2 ml/min; Est GFR (African American) 36.7; Est GFR (Non-African American) 31.7
[2019-06-25] MEDS: FERROUS SULFATE 325 MG TAB PO SCH ×2 (07:49→16:56)
[2019-06-25] MEDS: AMIODARONE 200 MG TAB PO SCH (07:49)
[2019-06-25] MEDS: LACTOBACILLUS ACIDOPHILUS (FLORANEX) TAB PO SCH ×3 (07:49→16:57)
[2019-06-25] MEDS: MICONAZOLE NITRATE POWDER 43 GM EXT SCH ×2 (07:49→13:22)
[2019-06-25] MEDS: ISOSORBIDE MONO EXTENDED REL 30 MG TABCR PO SCH (07:50)
[2019-06-25] MEDS: ASPIRIN 81 MG ECTAB PO SCH (07:50)
[2019-06-25] MEDS: GABAPENTIN 100 MG CAP PO SCH ×2 (07:50→13:22)
[2019-06-25] MEDS: CEFDINIR 300 MG CAP PO SCH (07:50)
[2019-06-25] MEDS: APIXABAN 5 MG TABLET PO SCH (07:50)
[2019-06-25] MEDS: FUROSEMIDE 20 MG TAB PO SCH ×2 (07:50→16:57)
[2019-06-25] MEDS: carvediloL 6.25 MG TAB PO SCH (07:52)
[2019-06-25] MEDS: INSULIN GLARGINE SOLOSTAR 100 UNITS/ML 3 ML PEN SQ SCH (09:10)
[2019-06-25] MEDS: INSULIN ASPART 100 UNITS/ML 3 ML PEN SC SCH ×2 (09:10→13:14)
[2019-06-25] MEDS: DOCUSATE SODIUM/SENNA 50/8.6MG TAB PO SCH (13:13)
--- NOTE | 2019-06-25 14:25 | Discharge Summary ---
Date of Service June 25, 2019 Admission HPI Per Admitting Provider [place] [address] History & Physical Report Signed Patient: ADENIKE COLORADO Date: 06/05/19 MR#: [id number] Phy: Isabelle Hauser MD Acct ID:[id number] Phy: Lola Jean MD Date: 1945Fam Phy: Age: 73Location: 2S Sex: F Room/Bed: [facility] cc: ~ *NOTICE TO RECEIVING LIBERTARIAN/AGENCY This information is strictly Confidential and protected under [place] law. [place] law prohibits you from making any further disclosure of this information unless further disclosure is expressly permitted by the written consent of the person to whom it pertains or is authorized by law. A general authorization for the release of medical or other information is not sufficient for this purpose. Hospital accepts no responsibility if the information is made available to any other person, INCLUDING THE PATIENT. Date of Service June 05, 2019 Assessment & Plan (1) Renal failure (ARF), acute on chronic: ARF on CKD, Hyperkalemia Possibly secondary to month-long Bactrim Rx for recurrent LE cellulitis/chronic venous stasis ulcers (MSSA/Sternotrophomonas on wound CS)-swelling is worsening as per personal-jailhome builder rule out osteomyelitis Pulmonary congestion secondary to above Cardiorenal syndrome chronic diastolic heart failure (EF of 55 % TTE 2019) chronic respiratory failure on home O2, CAD status post stenting, hx LBBB, PVD as per records AFib sp PPM, paced rhythm on Eliquis HTN, BP stable DM2 insulin requiring, well-controlled as of recent outpatient hemoglobin A1c of 5.28 March 2019 chronic anemia secondary to CKD, hemoglobin at baseline intellectual impairment as per records PCU given pulmonary congestion Lasix albumin, regular insulin for hyperkalemia Stop Bactrim, add to allergy/ADR list Strict I/Os, daily weights Nephrology consult RE hyperkalemia, ARF on CKD Plain x-rays of both legs rule out osteomyelitis Zosyn for now in place of Bactrim in consideration of microbiologic history ID consult RE Bactrim alternative for LE cellulitis/wounds Wound care consult RE follow-up eval for leg wounds/cellulitis Home Eliquis for now in anticipation of procedure related to leg wounds Basal insulin, ISS BG goal [id number] DVT prophylaxis. IV heparin while Eliquis on hold Conditional CODE STATUS (patient okay with CPR; no intubation) History of Present Illness Chief Complaint: Abnormal blood work Primary Care Provider: Lola Jean MD History obtained from patient, personal-jailhome builder, and records. History somewhat limited from patient secondary to emotional upset. Medical history significant for chronic respiratory failure on home O2, chronic diastolic heart failure (EF of 55 % TTE 2018), CAD status post stenting, hx LBBB, AFib status post pacemaker on Eliquis, HTN, PVD, DM2 insulin requiring, chronic kidney disease (baseline creatinine 1.9), chronic anemia (baseline hemoglobin of 9), intellectual impairment as per records, recurrent LE cellulitis secondary to chronic venous stasis ulcers currently on Bactrim Rx Recent confinement January 2019 for bilateral lower leg cellulitis. Patient started by ID on Bactrim since last month for traumatic wounds of the le gs (cultures growing MSSA and Sternothrophomonas). Patient to follow-up with ID end of the month. Debridement of leg wounds done at wound care center yesterday. As per personal-jailhome builder, leg swelling looking worse. No fever, no chills. Patient seen at [facility] Nephrology office today, follow-up for CKD. Patient complaining of shortness of breath. Outpatient blood work, chest x-ray requested. Outpatient serum potassium noted to be 6.5, serum creatinine 2.3, serum magnesium 3. Patient directed to the ER by business services vice president. MEDICAL HISTORY: As above. SURGERIES: She has had ICD/pacemaker placement, cholecystectomy, arthroplasty, breast cyst removal, toe amputation FAMILY HISTORY: There is a family history of heart disease. PERSONAL AND SOCIAL HISTORY: Nonsmoker, no chronic intake of alcoholic beverages. Lives at a personal jail [facility]. Px was home carbon cleaner in her younger years. Principal Diagnosis ACUTE RENAL FAILURE /HYPERKALEMIA -RESOLVED , CHRONIC BILATERAL LOWER EXTREMITY WOUND Discharge Exam Constitutional WD/WN, vitals as above well developed, well nourished, + ill appearing and + obese; no acute distress (up in chair on 02NC 2L) Eyes PERRL, conjunctivae normal, anicteric sclerae EOM intact bilaterally ENMT external ear and nose normal, oropharynx normal Ears: no external ear abnormality Nose: no external nose abnormality Mouth: + dry oral mucous membranes Neck normal visual inspection; no nuchal rigidity Respiratory normal respiratory effort, lungs clear to auscultation normal respiratory effort Auscultation: + breath sounds absent (L base), + diminished lung sounds and + crackles (BLbases) Cardiovascular Rate/Rhythm: regular rate and regular rhythm Extremities: + pedal edema; no calf tenderness Gastrointestinal (Abdomen) normal bowel sounds, soft, nontender, no hepatosplenomegaly Inspection/Auscultation: normal bowel sounds Percussion/Palpation: abdomen soft; abdomen nontender Musculoskeletal no cyanosis or clubbing, extremities motor strength 5/5 Skin no rashes, warm and dry + ulcer (wrapped bl) and + wound (Chronic wounds on lower extremity ) Neurologic awake (drowsy); not confused Psychiatric A+Ox3, euthymic affect Orientation: alert, oriented x 3, oriented to person, oriented to place and cooperative Affect: + flat affect Discharge Data Allergies Allergy/AdvReac Type Severity Reaction Status Date / Time sulfamethoxazole AdvReac Intermediate hyperkalemi Verified 06/05/19 21:43 [From Bactrim] a trimethoprim [From Bactrim] AdvReac Intermediate hyperkalemi Verified 06/05/19 21:43 a Consultations 06/05/19 20:19 ED Decision to Admit Stat 06/05/19 23:46 Consult Case Management - Discharge Planning Routine Consult Infectious Diseases Routine Consult Nephrology Routine 06/06/19 00:47 Consult Nutrition Routine 06/06/19 00:49 Consult Wound Care Provider Routine Ordered Studies 06/05/19 21:56 US venous doppler LE Routine Hospital Course (1) Renal failure (ARF), acute on chronic: ARF on CKD stage 3-4, Hyperkalemia (Resolved) Baseline CKD stage IV, creatinine between 1.61.9 Admitted with acute renal failure with electrolyte imbalance ( hyperkalemia ) Resolved improvement of renal function with resolution of hyperkalemia, current Cr improved to 1.6 Possibly secondary to antibiotic induced: Was on month-long Bactrim Rx for recurrent LE cellulitis/chronic venous stasis ulcers (MSSA/Sternotrophomonas on wound CS)- appreciate input from Nephrology Bactrim D/umesh ( added to allergy list -to avoid future exposure) outpatient lab work : Basic metabolic panel every week for X4 weeks results should be faxed to Nephrology Dr Sabina Abel at [facility] ACUTE RENAL FAILURE ON CKD STAGE 3- 4 : Renal failure (ARF), acute on chronic: Resolved: ckd 4 at baseline w/ creat between 1.6-1.9. presented with elevated Cr 2.5 , current Cr 1.6 appreciate nephrology eval on Lasix to p.o. 20 mg twice daily Continue fluid restriction 1.5 L daily will need weekly BMP check as an outpatient Bilat lower ext cellulitis : chronic Plain Xray shows no evidence of osteomyelitis appreciate input from ID On antibiotic: P.o. Omnicef, will need long-term p.o. antibiotic course - per ID note, recommend 21 days (after d/c) - as pt has prolonged hospitalization d/t discharge/placement issues,estim. end date 06/25 Added Lactinex avoid Bactrim -hyperkalemia /renal failure ( added to allergy list ) Wound care consulted RE follow-up eval for leg wounds/cellulitis-appreciate input pt had recent debridement of lower ext , no repeat debridement needed cont abx and local wound care -per recommendation Acute decompensation of chronic diastolic heart failure (EF of 55 % TTE 2018) resolved pt denies SOB or Orthopnea Volume status remains stable, - Lasix is changed to p.o. 20 mg p.o. daily Renal function remains stable Chronic respiratory failure on home O2, on 1-2 L/min as needed during the day and at night CAD: status post stenting, hx LBBB, PVD as per records On Coreg AFib sp PPM, paced rhythm on amiodarone /digoxin on Eliquis HTN, BP stable cont on Coreg/Imdur DM2 insulin requiring, well-controlled as of recent outpatient hemoglobin A1c of 5.28 March 2019 Chronic anemia secondary to CKD stage IV - baseline hgb 8.5-9 On 06/13, Hgb 6.9, and on repeat 6.7 - s/p transfusion of 1 unit of pRBC, consent obtained (provided iv lasix w/ transfusion) - no s/s of acute bleed - stool hemoccult positive, pt is on iron suppl. , stool soft brown/green Patient given IV Venofer Appreciate input from nephrology, given Procrit 38736 units SQ x 1 on 06/21 hb remained stable 7.6 Transfusion will be given for hemoglobin less than 7 or if patient is symptomatic Ambulatory dysfunction PT OT evaluation appreciated patient will need skilled rehab DVT prophylaxis. Eliquis Conditional CODE STATUS (patient okay with CPR; no intubation) DISPOSITION : was at personal jail will need skill rehab on discharge / referral made to [facility] -accpeted medically stable to transfer to SNF today Total Time Total Time Spent Total Time Spent (In Minutes): 35 mins Total Time Includes: Examination of the Patient, Discharge Planning and Medication Reconciliation Discharge Plan Discharge Items Patient Disposition: Transfer [facility] Reason For Visit: PULM CONGESTION, HYPERKALEMIA Discharge Diagnosis: ACUTE RENAL FAILURE /HYPERKALEMIA -RESOLVED , CHRONIC BILATERAL LOWER EXTREMITY WOUND Activity: As commented below Activity Comment: Continue physical therapy, occupational therapy at rehab Non-emergency contact: Primary Care Provider Call non-emergency contact if: you have any medication questions Follow-up/Referrals: Sabina Abel MD, PhD [Physician] - (Follow-up appointment already scheduled in next 4 months) Lola Jean MD [Primary Care Provider] - Diet: Heart Healthy Ambulatory Orders: Basic Metabolic Panel (Routine) Timeframe: 1 Week Location: Determined by Patient Ordered By: Isabelle Silva Attending Provider Instructions: Lab: Basic metabolic panel weekly for next 4 weeks Please fax result of lab report to Dr. Sabina Nova nephrology at [facility] lower extremity Wounds dressing with Aquasol AG and Kerlix.-see wound care instruction Follow-up with wound clinic in a week Pending Studies at Discharge: Yes Studies:: Lab: Basic metabolic panel weekly for 4 weeks Stand-Alone Forms: My [facility] [employer] Skilled Items Patient informed of condition?: Yes DNR: Yes Discharge Level of Care: Skilled Communicable Disease: No Discharge Prognosis: Stable Lines: None Urinary Catheter: No Medications and DC Order Prescriptions: New Lactinex 100 million cell granules in packet 1 pkt PO TID Qty: 90 RF: 0 trazodone 50 mg Tablet 50 mg PO HS 30 Days Qty: 30 RF: 0 Continued apixaban [Eliquis] 5 mg tablet 5 mg PO BID RF: 0 aspirin 81 mg tablet,chewable 81 mg PO QAM RF: 0 carvedilol [Coreg] 6.25 mg tablet 6.25 mg PO BID RF: 0 cholecalciferol (vitamin D3) 2,000 unit capsule 2,000 units PO QAM RF: 0 digoxin 125 mcg tablet 0.125 mg PO Q2D RF: 0 ferrous sulfate 325 mg (65 mg iron) tablet,delayed release (DR/EC) 325 mg PO BIDM RF: 0 insulin asp prt-insulin aspart [Novolog Mix 70-30 U-100 Insuln] 100 unit/mL (70-30) solution 48 units SQ QDB RF: 0 insulin asp prt-insulin aspart [Novolog Mix 70-30 U-100 Insuln] 100 unit/mL (70-30) solution 42 units SQ QDD RF: 0 insulin aspart U-100 [Novolog Flexpen U-100 Insulin] 100 unit/mL insulin pen 4 units SQ QDL RF: 0 sennosides-docusate sodium 8.6-50 mg tablet 1 tab PO BID RF: 0 simvastatin [Zocor] 20 mg tablet 20 mg PO QPM RF: 0 amiodarone 200 mg tablet 200 mg PO QAM Qty: 90 RF: 3 levothyroxine 75 mcg Tablet 75 mcg PO DAILYBB RF: 0 polyethylene glycol 3350 [Miralax] 17 gram Powder In Packet 17 g PO DAILY PRN (Reason: Constipation) RF: 0 Zeasorb AF 2 % Powder 1 applic TOPICAL DIRECTED RF: 0 magnesium hydroxide [Milk of Magnesia] 400 mg/5 mL Suspension 30 ml PO DAILY PRN (Reason: Constipation) RF: 0 acetaminophen 500 mg Tablet 1,000 mg PO Q6 MDD 3000 PRN (Reason: Pain) RF: 0 isosorbide mononitrate 30 mg Tablet Extended Release 24 Hr 30 mg PO DAILY RF: 0 Changed furosemide 40 mg tablet 20 mg PO BID Qty: 0 RF: 0 gabapentin [Neurontin] 100 mg capsule 100 mg PO BID Qty: 0 RF: 0 Discontinued sulfamethoxazole-trimethoprim [Bactrim DS] 800-160 mg tablet 1 tab PO BID Qty: 60 RF: 0 Discharge Orders: Discharge Order (Routine); Ordered 06/25/19 Ordered By: Isabelle Hauser Admission Data Admit Date/Time: 06/05/19 21:44 Attending Provider: Isabelle Hauser Admit Provider: Mono Ring Primary Care Provider: Lola Jean Other Providers: Mono Ring ; Ferny, ; Angela Valdovinos ; Sabina Almeida ; Shabbir Menon ; Isabelle Hauser
[2019-06-25] MEDS: DIGOXIN 0.125 MG TAB PO SCH (16:55)
== END 2019-06-25 17:32 | DRG 682 ==
LOC: ED 16:48 → 2S 21:44 → SUATTDRO 21:44 → 2S 22:30 → 2N 06-08 12:23 → 4W 06-22 14:50

== ENCOUNTER 2019-07-24 15:24 | Inpatient (IN) ==
--- NOTE | 2019-07-24 16:47 | XRay Report ---
XR chest 1V portable CLINICAL HISTORY: SOB dyspnea COMPARISON STUDY: 06/05/2018 FINDINGS: Moderate cardiac enlargement. Increased prominence of pulmonary vasculature. Bipolar cardia c pacemaker. IMPRESSION: Progressive components of pulmonary edema. ACT 112: Negative or not required by law. The above report was generated using voice recognition software. It may contain grammatical, syntax or spelling errors. Electronically signed by: Sen Magallon M.D. 07/24/2019 4:46 PM
[2019-07-24 16:52] LABS: Hemoglobin 9.5 g/dL (12.0-16.0); Mean Corpuscular Hemoglobin 27.6 pg (25-34); Mean Corpuscular Hgb Conc 28.8 g/dL (32-36); Mean Corpuscular Volume 95.9 fL (80-100); Mean Platelet Volume 10.2 fL (7.4-10.4); Nucleated RBC # (auto) 0.03 K/uL (0-0); Nucleated RBC % (auto) 0.4 %; Platelet Count 249 K/uL (130-400); RDW Coefficient of Variation 21.5 % (11.5-14.5); RDW Standard Deviation 73.3 fL (36.4-46.3); Red Blood Count 3.44 M/uL (4.2-5.4)
[2019-07-24 17:14] LABS: Anisocytosis Present; Basophils # (auto) 0.02 K/uL (0-0.2); Basophils % (auto) 0.3 %; Eosinophils # (auto) 0.16 K/uL (0-0.5); Eosinophils % (auto) 2.2 %; Immature Granulocytes # (auto) 0.02 K/uL (0.00-0.02); Immature Granulocytes % (auto) 0.3 %; Lymphocytes # (auto) 0.41 K/uL (1.2-3.4); Lymphocytes % (auto) 5.6 %; Monocytes # (auto) 0.48 K/uL (0.11-0.59); Monocytes % (auto) 6.6 %; Neutrophils # (auto) 6.21 K/uL (1.4-6.5); Toxic Vacuolation 1+
[2019-07-24] MEDS ORDERED: FUROSEMIDE 40 MG/4 ML VIAL IV STA (17:23)
--- NOTE | 2019-07-24 18:07 | Emergency Department Note ---
Entered by Xiao Richard acting as a scribe for Tae Hernandez MD History of Present Illness General Chief complaint: Shortness of Breath/Dyspnea Stated complaint: sob, ams Time Seen by Provider: 07/24/19 15:57 Source: patient History of Present Illness Onset (ago): hour(s) (last night) Location: chest Quality: + other (shortness of breath) Associated symptoms: + other (changing mental status, leg swelling); no cough, no fever/chills and no nausea/vomiting The patient is a 73 year old female who presents to the Emergency Room with complaints of shortness of breath beginning last night. EMS reports the patient came from [facility]. They note changing mental status. The patient denies pain, fever, vomiting and cough. She reports normal intermittent leg swelling. EMS reports the patient is on 2L of oxygen at home. HPI and ROS limited due to cognitive status. Home Medications Home Medications Medication Instructions Recorded Confirmed Type apixaban 5 mg tablet 5 mg PO BID 02/22/18 07/24/19 History aspirin 81 mg chewable tablet 81 mg PO QAM 02/22/18 07/24/19 History carvedilol 6.25 mg tablet 6.25 mg PO BID 02/22/18 07/24/19 History cholecalciferol (vitamin D3) 50 2,000 units PO QAM 02/22/18 07/24/19 History mcg (2,000 unit) capsule digoxin 125 mcg (0.125 mg) tablet 0.125 mg PO Q2D 02/22/18 07/24/19 History ferrous sulfate 325 mg (65 mg 325 mg PO BIDM tab 02/22/18 07/24/19 History iron) tablet,delayed release insulin aspar prt-insulin aspart 35 units SQ QPM ml 02/22/18 07/24/19 History 100 unit/mL (70-30) subcutaneous soln insulin aspar prt-insulin aspart 48 units SQ QAM ml 02/22/18 07/24/19 History 100 unit/mL (70-30) subcutaneous soln insulin aspart U-100 100 unit/mL 4 units SQ QDL ml 02/22/18 07/24/19 History (3 mL) subcutaneous pen sennosides 8.6 mg-docusate sodium 1 tab PO BID 02/22/18 06/05/19 History 50 mg tablet levothyroxine 75 mcg PO QAM 08/30/18 07/24/19 History polyethylene glycol 3350 [Miralax] 17 g PO QAM 01/25/19 07/24/19 History amiodarone 200 mg tablet 200 mg PO QAM #90 tab 04/13/19 07/24/19 Rx acetaminophen 1,000 mg PO Q6H PRN MDD 3000 GMS 05/16/19 07/24/19 History /DAY isosorbide mononitrate 30 mg PO QAM 06/05/19 07/24/19 History gabapentin [Neurontin] 100 mg PO BID #0 cap 06/11/19 07/24/19 Rx trazodone 50 mg PO HS 30 Days #30 tab 06/13/19 07/24/19 Rx Insta-Glucose Application 1 applic PO DIRECTED PRN 07/24/19 07/24/19 History Lactobacillus acidoph-L.bulgar 1 tab PO TID 07/24/19 07/24/19 History [Lactinex] bisacodyl [Dulcolax (bisacodyl)] 10 mg SD DIRECTED PRN 07/24/19 07/24/19 History furosemide 20 mg PO BID 07/24/19 07/24/19 History magnesium hydroxide [Milk Of 10 ml PO DIRECTED PRN 07/24/19 07/24/19 History Magnesia Concentrated] naproxen 500 mg PO BID 07/24/19 07/24/19 History sodium phosphates [Enema] 118 ml SD DIRECTED PRN 07/24/19 07/24/19 History Allergies Allergy/AdvReac Type Severity Reaction Status Date / Time sulfamethoxazole AdvReac Intermediate hyperkalemi Verified 07/24/19 16:42 [From Bactrim] a trimethoprim [From Bactrim] AdvReac Intermediate hyperkalemi Verified 07/24/19 16:42 a Past Med/Surg History Medical History A-fib (Chronic) Acquired claw toe of left foot (Acute) Acquired claw toe of right foot (Acute) Acquired hallux valgus of right foot (Acute) Anemia (Chronic) Anemia (Chronic) Atrial fibrillation (Chronic) CHF (congestive heart failure) (Chronic) CHF (congestive heart failure) (Chronic) Chronic venous insufficiency (Chronic) CKD (chronic kidney disease), stage IV Coronary artery disease (Chronic) Diabetes 1.5, 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 (Acute) Diabetic neuropathy (Chronic) DM type 2 (diabetes mellitus, type 2) (Chronic) Hallux valgus (acquired), left foot (Acute) History of osteomyelitis (Chronic) "R third toe" History of uterine cancer (Chronic) "s/p XRT" HTN (hypertension) (Chronic) Hyperlipidemia (Chronic) Mild intellectual disability (Chronic) Pacemaker (Chronic) Type 2 diabetes mellitus with diabetic peripheral angiopathy without gangrene (Acute) Uterine cancer (Resolved) Surgical History History of amputation of lesser toe of right foot (Chronic) History of amputation of lesser toe of right foot (Acute) History of lumpectomy of left breast (Resolved) History of total bilateral knee replacement (Chronic) S/P cardiac pacemaker procedure (Resolved) S/P cholecystectomy (Chronic) S/P cholecystectomy (Resolved) Status post bilateral knee replacements (Resolved) Status post placement of cardiac pacemaker (Chronic) Family History Mother Pneumonia Social History Preferred Language: Luxembourgish Communication Ability: Effective Visual Impairment: No Limitations 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: Normal Hatchery Helper Required: No Beliefs That Will Affect Care: None marital status: Current Living Situation: Personal Care Facility Current Living Situation Comment: House of Care Feels Safe at Home: Yes Smoking Status: Former smoker Second Hand Exposure: No ; Hx Alcohol Use: No Hx Substance Use: No Review of Systems See HPI for pertinent positives & negatives. Unobtainable due to cognitive status Physical Exam Vital Signs Vital Signs - 24 hr 07/24/19 15:34 07/24/19 15:35 07/24/19 15:38 Temperature Temperature Source Rectal Temperature - Source 1 Pulse Rate 60 60 60 Pulse Rate from SpO2 Sensor 64 60 60 Respiratory Rate 20 19 18 Respiratory Effort / Characteristics Respiratory Depth Respiratory Pattern Blood Pressure 81/50 L 99/48 L Blood Pressure Mean 62 63 Pulse Oximetry 93 93 Oxygen Delivery Method Oxygen Flow Rate Fraction of Inspired Oxygen Sepsis Recent Fever Within 48 Hours Sepsis Action Taken by Nursing 07/24/19 15:40 07/24/19 15:50 07/24/19 16:00 Temperature 36.4 C L Temperature Source Oral Rectal Temperature - Source 1 Pulse Rate 60 61 60 Pulse Rate from SpO2 Sensor 60 61 60 Respiratory Rate 21 18 20 Respiratory Effort / Characteristics Short of Breath Respiratory Depth Shallow Respiratory Pattern Tachypnea Blood Pressure Blood Pressure Mean Pulse Oximetry 95 96 96 Oxygen Delivery Method Nasal Cannula Oxygen Flow Rate 3 Fraction of Inspired Oxygen Sepsis Recent Fever Within 48 Hours No Sepsis Action Taken by Nursing No Action Required 07/24/19 16:10 07/24/19 16:16 07/24/19 16:20 Temperature Temperature Source Rectal Temperature - Source 1 Pulse Rate 65 60 Pulse Rate from SpO2 Sensor 60 60 Respiratory Rate 21 21 Respiratory Effort / Characteristics Respiratory Depth Respiratory Pattern Blood Pressure Blood Pressure Mean Pulse Oximetry 97 96 98 Oxygen Delivery Method Room Air Oxygen Flow Rate 3 Fraction of Inspired Oxygen Sepsis Recent Fever Within 48 Hours Sepsis Action Taken by Nursing 07/24/19 16:30 07/24/19 16:40 07/24/19 16:50 Temperature Temperature Source Rectal Temperature - Source 1 Pulse Rate 60 60 69 Pulse Rate from SpO2 Sensor 60 60 65 Respiratory Rate 20 22 22 Respiratory Effort / Characteristics Respiratory Depth Respiratory Pattern Blood Pressure Blood Pressure Mean Pulse Oximetry 96 95 97 Oxygen Delivery Method Oxygen Flow Rate Fraction of Inspired Oxygen Sepsis Recent Fever Within 48 Hours Sepsis Action Taken by Nursing 07/24/19 17:00 07/24/19 17:05 07/24/19 17:10 Temperature Temperature Source Rectal Temperature - Source 1 Pulse Rate 60 60 61 Pulse Rate from SpO2 Sensor 60 60 61 Respiratory Rate 23 22 18 Respiratory Effort / Characteristics Respiratory Depth Respiratory Pattern Blood Pressure 95/57 L 95/57 L Blood Pressure Mean 69 74 Pulse Oximetry 96 96 95 Oxygen Delivery Method Oxygen Flow Rate Fraction of Inspired Oxygen Sepsis Recent Fever Within 48 Hours Sepsis Action Taken by Nursing 07/24/19 17:20 07/24/19 17:30 07/24/19 17:31 Temperature Temperature Source Rectal Temperature - Source 1 Pulse Rate 60 60 60 Pulse Rate from SpO2 Sensor 60 60 60 Respiratory Rate 23 17 17 Respiratory Effort / Characteristics Respiratory Depth Respiratory Pattern Blood Pressure 117/56 L Blood Pressure Mean 78 Pulse Oximetry 97 96 95 Oxygen Delivery Method Oxygen Flow Rate Fraction of Inspired Oxygen Sepsis Recent Fever Within 48 Hours Sepsis Action Taken by Nursing 07/24/19 17:40 07/24/19 17:50 07/24/19 18:00 Temperature Temperature Source Rectal Temperature - Source 1 Pulse Rate 60 60 67 Pulse Rate from SpO2 Sensor 60 61 67 Respiratory Rate 16 24 21 Respiratory Effort / Characteristics Respiratory Depth Respiratory Pattern Blood Pressure Blood Pressure Mean Pulse Oximetry 96 98 93 Oxygen Delivery Method Oxygen Flow Rate Fraction of Inspired Oxygen Sepsis Recent Fever Within 48 Hours Sepsis Action Taken by Nursing 07/24/19 18:09 07/24/19 18:10 07/24/19 18:11 Temperature Temperature Source Rectal Temperature - Source 1 Pulse Rate 61 61 60 Pulse Rate from SpO2 Sensor 68 70 60 Respiratory Rate 21 20 28 H Respiratory Effort / Characteristics Respiratory Depth Respiratory Pattern Blood Pressure 101/35 L 85/57 L 90/33 L Blood Pressure Mean 86 79 49 Pulse Oximetry 96 Oxygen Delivery Method Oxygen Flow Rate Fraction of Inspired Oxygen Sepsis Recent Fever Within 48 Hours Sepsis Action Taken by Nursing 07/24/19 18:12 07/24/19 18:13 07/24/19 18:20 Temperature Temperature Source Rectal Temperature - Source 1 Pulse Rate 60 60 60 Pulse Rate from SpO2 Sensor 63 60 60 Respiratory Rate 18 18 17 Respiratory Effort / Characteristics Respiratory Depth Respiratory Pattern Blood Pressure 94/34 L Blood Pressure Mean 58 Pulse Oximetry 96 96 99 Oxygen Delivery Method Oxygen Flow Rate Fraction of Inspired Oxygen Sepsis Recent Fever Within 48 Hours Sepsis Action Taken by Nursing 07/24/19 18:30 07/24/19 18:31 07/24/19 18:40 Temperature Temperature Source Rectal Temperature - Source 1 Pulse Rate 60 60 63 Pulse Rate from SpO2 Sensor 60 60 63 Respiratory Rate 16 17 18 Respiratory Effort / Characteristics Respiratory Depth Respiratory Pattern Blood Pressure 94/47 L Blood Pressure Mean 69 Pulse Oximetry 95 93 93 Oxygen Delivery Method Oxygen Flow Rate Fraction of Inspired Oxygen Sepsis Recent Fever Within 48 Hours Sepsis Action Taken by Nursing 07/24/19 18:50 07/24/19 19:00 07/24/19 19:01 Temperature Temperature Source Rectal Temperature - Source 1 Pulse Rate 60 63 69 Pulse Rate from SpO2 Sensor 60 63 62 Respiratory Rate 19 20 23 Respiratory Effort / Characteristics Respiratory Depth Respiratory Pattern Blood Pressure 93/60 L Blood Pressure Mean 75 Pulse Oximetry 94 92 92 Oxygen Delivery Method Oxygen Flow Rate Fraction of Inspired Oxygen Sepsis Recent Fever Within 48 Hours Sepsis Action Taken by Nursing 07/24/19 19:10 07/24/19 19:20 07/24/19 19:30 Temperature Temperature Source Rectal Temperature - Source 1 Pulse Rate 60 62 60 Pulse Rate from SpO2 Sensor 60 64 60 Respiratory Rate 19 18 18 Respiratory Effort / Characteristics Respiratory Depth Respiratory Pattern Blood Pressure 110/48 L Blood Pressure Mean 65 Pulse Oximetry 92 95 95 Oxygen Delivery Method Oxygen Flow Rate Fraction of Inspired Oxygen Sepsis Recent Fever Within 48 Hours Sepsis Action Taken by Nursing 07/24/19 19:31 07/24/19 19:40 07/24/19 19:50 Temperature Temperature Source Rectal Temperature - Source 1 Pulse Rate 60 60 65 Pulse Rate from SpO2 Sensor 60 60 60 Respiratory Rate 18 21 22 Respiratory Effort / Characteristics Respiratory Depth Respiratory Pattern Blood Pressure Blood Pressure Mean Pulse Oximetry 96 94 93 Oxygen Delivery Method Oxygen Flow Rate Fraction of Inspired Oxygen Sepsis Recent Fever Within 48 Hours Sepsis Action Taken by Nursing 07/24/19 20:00 07/24/19 20:10 07/24/19 20:20 Temperature Temperature Source Rectal Temperature - Source 1 Pulse Rate 60 60 60 Pulse Rate from SpO2 Sensor 60 60 60 Respiratory Rate 23 17 16 Respiratory Effort / Characteristics Respiratory Depth Respiratory Pattern Blood Pressure 94/61 L Blood Pressure Mean 75 Pulse Oximetry 93 98 95 Oxygen Delivery Method Oxygen Flow Rate Fraction of Inspired Oxygen Sepsis Recent Fever Within 48 Hours Sepsis Action Taken by Nursing 07/24/19 20:30 07/24/19 20:31 07/24/19 20:40 Temperature Temperature Source Rectal Temperature - Source 1 Pulse Rate 60 60 60 Pulse Rate from SpO2 Sensor 60 60 60 Respiratory Rate 19 13 16 Respiratory Effort / Characteristics Respiratory Depth Respiratory Pattern Blood Pressure 112/58 L 112/58 L Blood Pressure Mean 79 79 Pulse Oximetry 91 90 94 Oxygen Delivery Method Oxygen Flow Rate Fraction of Inspired Oxygen Sepsis Recent Fever Within 48 Hours Sepsis Action Taken by Nursing 07/24/19 20:50 07/24/19 21:00 07/24/19 21:01 Temperature Temperature Source Rectal Temperature - Source 1 Pulse Rate 60 60 60 Pulse Rate from SpO2 Sensor 60 61 60 Respiratory Rate 17 24 19 Respiratory Effort / Characteristics Respiratory Depth Respiratory Pattern Blood Pressure 130/69 Blood Pressure Mean 89 Pulse Oximetry 94 94 93 Oxygen Delivery Method Oxygen Flow Rate Fraction of Inspired Oxygen Sepsis Recent Fever Within 48 Hours Sepsis Action Taken by Nursing 07/24/19 21:10 07/24/19 21:11 07/24/19 21:17 Temperature Temperature Source Rectal Temperature - Source 1 35.0 C L Pulse Rate 62 60 Pulse Rate from SpO2 Sensor 62 Respiratory Rate 24 20 Respiratory Effort / Characteristics Respiratory Depth Respiratory Pattern Blood Pressure Blood Pressure Mean Pulse Oximetry 94 95 Oxygen Delivery Method Oxygen Flow Rate Fraction of Inspired Oxygen 30 Sepsis Recent Fever Within 48 Hours Sepsis Action Taken by Nursing 07/24/19 21:20 07/24/19 21:30 07/24/19 21:31 Temperature Temperature Source Rectal Temperature - Source 1 Pulse Rate 60 60 67 Pulse Rate from SpO2 Sensor 60 60 61 Respiratory Rate 27 H 21 38 H Respiratory Effort / Characteristics Respiratory Depth Respiratory Pattern Blood Pressure 120/60 Blood Pressure Mean 75 Pulse Oximetry 94 98 96 Oxygen Delivery Method Oxygen Flow Rate Fraction of Inspired Oxygen Sepsis Recent Fever Within 48 Hours Sepsis Action Taken by Nursing 07/24/19 21:40 07/24/19 21:50 07/24/19 22:00 Temperature Temperature Source Rectal Temperature - Source 1 Pulse Rate 60 60 60 Pulse Rate from SpO2 Sensor 60 60 60 Respiratory Rate 20 24 21 Respiratory Effort / Characteristics Respiratory Depth Respiratory Pattern Blood Pressure 123/58 L Blood Pressure Mean 62 Pulse Oximetry 97 94 96 Oxygen Delivery Method Oxygen Flow Rate Fraction of Inspired Oxygen Sepsis Recent Fever Within 48 Hours Sepsis Action Taken by Nursing 07/24/19 22:01 07/24/19 22:10 07/24/19 22:31 Temperature Temperature Source Rectal Temperature - Source 1 Pulse Rate 60 62 60 Pulse Rate from SpO2 Sensor 60 62 60 Respiratory Rate 20 17 24 Respiratory Effort / Characteristics Respiratory Depth Respiratory Pattern Blood Pressure 112/66 Blood Pressure Mean 85 Pulse Oximetry 92 97 96 Oxygen Delivery Method Nasal Cannula BiPAP Oxygen Flow Rate 2 Fraction of Inspired Oxygen Sepsis Recent Fever Within 48 Hours Sepsis Action Taken by Nursing 07/24/19 23:24 07/24/19 23:30 07/24/19 23:45 Temperature 35.8 C L Temperature Source Rectal Rectal Temperature - Source 1 Pulse Rate 60 60 Pulse Rate from SpO2 Sensor 60 60 Respiratory Rate 19 23 Respiratory Effort / Characteristics Respiratory Depth Respiratory Pattern Blood Pressure 115/62 107/50 L Blood Pressure Mean 89 68 Pulse Oximetry 94 93 Oxygen Delivery Method Nasal Cannula BiPAP Oxygen Flow Rate 2 Fraction of Inspired Oxygen Sepsis Recent Fever Within 48 Hours Sepsis Action Taken by Nursing 07/24/19 23:59 Temperature Temperature Source Rectal Temperature - Source 1 Pulse Rate 63 Pulse Rate from SpO2 Sensor Respiratory Rate 24 Respiratory Effort / Characteristics Respiratory Depth Respiratory Pattern Blood Pressure 103/53 L Blood Pressure Mean Pulse Oximetry 95 Oxygen Delivery Method BiPAP Oxygen Flow Rate Fraction of Inspired Oxygen Sepsis Recent Fever Within 48 Hours Sepsis Action Taken by Nursing GENERAL: Patient is in mild distress. HEENT: No acute trauma, normocephalic atraumatic, mucous membranes moist, no nasal congestion, no scleral icterus. NECK: No stridor, no adenopathy, no meningismus, trachea is midline. LUNGS: Crackles in both bases, no wheezes, no significant respiratory distress, breath sounds equal. HEART: Without murmurs gallops or rubs, regular rate and rhythm. ABDOMEN: Soft, nontender, bowel sounds positive, no hernias, no peritonitis. EXTREMITIES: No cyanosis, full range of motion of all the joints without pain or difficulty, no signs for acute trauma. Moderate bilateral pedal edema. Skin erythema and warmth bilaterally. CRISTIN wraps in place. NEUROLOGIC: Awake and alert, no acute motor or sensory deficits, no focal weakness. SKIN: No rash, no jaundice, no diaphoresis. Course Course 1600: Past medical records reviewed. The patient was evaluated in room B04B. A complete history and physical exam was performed. 1999: Upon reevaluation, I discussed findings and results with the patient. She verbalized agreement of the treatment plan. I spoke with Dr. Pride of the [facility]. The patient will be evaluated for further management and care. 2099: The patient is having a hard time catching her breath. She was placed on BiPap. 2114: The nurse states the patient had a dark bowel movement which was heme positive. 2199: The patient was taken off BiPap temporarily as she states she can't tolerate it anymore. Administered Medications Pantoprazole Sodium 40 mg/ (Dextrose) 100 mls @ 20 mls/hr IV Q5H [facility] Stop: 08/23/19 21:59 Last Admin: 07/24/19 22:04 Dose: 20 mls/hr Documented by: [id number] Discontinued Medications Dextrose (Dextrose 50%) 25 ml IV NOW ONE Stop: 07/24/19 19:52 Last Admin: 07/24/19 19:56 Dose: 25 ml Documented by: [id number] Dextrose (Dextrose 50%) 50 ml IV NOW STA Stop: 07/24/19 22:32 Last Admin: 07/24/19 23:14 Dose: 50 ml Documented by: [id number] Furosemide (Lasix) 40 mg IV NOW STA Stop: 07/24/19 17:24 Last Admin: 07/24/19 18:08 Dose: 40 mg Documented by: [id number] Pantoprazole Sodium 80 mg/ (Dextrose) 120 mls @ 480 mls/hr IV ONE ONE Stop: 07/24/19 21:59 Last Infusion: 07/24/19 22:19 Dose: 0 mls/hr Documented by: [id number] Admin: 07/24/19 22:04 Dose: 480 mls/hr Documented by: [id number] Calcium Gluconate 1,000 mg/ (Sodium Chloride) 60 mls @ 240 mls/hr IV NOW STA Stop: 07/24/19 22:45 Last Admin: 07/24/19 23:14 Dose: 240 mls/hr Documented by: [id number] Insulin Human Regular (Novolin R U-100 Per Unit) 10 units IV NOW STA Stop: 07/24/19 22:32 Last Admin: 07/24/19 23:13 Dose: 10 units Documented by: [id number] Cosigned by: [id number] Critical Care Time Critical Care Time: Yes Total Critical Care Time: 48 I have personally spent 48 minutes of critical care time in the direct management of this patient. This includes bedside care, interpretation of diagnostic studies, and testing, discussion with consultants, patient, and family members, and other required patient management activities. This 48 minutes is in excess of all separately billable procedures. Medical Decision Making Differential Diagnosis Differential diagnosis: CHF, pneumonia, bronchitis, pleural effusion, cardiac ischemia, anemia, infection, MD Medical Records Attestation: I reviewed the patient's medical records. Home Medications Current Medication List: was personally reviewed by me Laboratory Data Attestation: I reviewed the patient's lab results. Result diagrams: 07/24/19 16:30 07/24/19 18:55 Lab Results 07/24/19 07/24/19 07/24/19 Range/Units 16:30 16:30 16:59 WBC 7.30 (4.8-10.8) K/uL RBC 3.44 L (4.2-5.4) M/uL Hgb 9.5 L (12.0-16.0) g/dL Hct 33.0 L (37-47) % MCV 95.9 (80-100) fL MCH 27.6 (25-34) pg MCHC 28.8 L (32-36) g/dL RDW Std Deviation 73.3 H (36.4-46.3) fL RDW Coeff of Gerardo 21.5 H (11.5-14.5) % Plt Count 249 (130-400) K/uL MPV 10.2 (7.4-10.4) fL Immature Gran % (Auto) 0.3 % Neut % (Auto) 85.0 % Lymph % (Auto) 5.6 % [place] % (Auto) 6.6 % Eos % (Auto) 2.2 % Baso % (Auto) 0.3 % Immature Gran # (Auto) 0.02 (0.00-0.02) K/uL Neut # (Auto) 6.21 (1.4-6.5) K/uL Lymph # (Auto) 0.41 L (1.2-3.4) K/uL [place] # (Auto) 0.48 (0.11-0.59) K/uL Eos # (Auto) 0.16 (0-0.5) K/uL Baso # (Auto) 0.02 (0-0.2) K/uL Absolute Nucleated RBC 0.03 H (0-0) K/uL Nucleated RBC % (auto) 0.4 % Toxic Vacuolation 1+ Anisocytosis Present PT INR APTT PTT Ratio Sodium Cancelled Potassium Cancelled Chloride Cancelled Carbon Dioxide Cancelled Anion Gap Cancelled BUN Cancelled Creatinine Cancelled Est Cr Clr Drug Dosing Cancelled Est GFR ( Amer) Cancelled Est GFR (Non-Af Amer) Cancelled BUN/Creatinine Ratio Cancelled Glucose Cancelled POC Glucose (70-99) mg/dl Lactate (0.4-2.0) mmol/L Calcium Cancelled Magnesium Cancelled Total Bilirubin Cancelled AST Cancelled ALT Cancelled Alkaline Phosphatase Cancelled Troponin I Cancelled NT-Pro-B Natriuret Pep Cancelled Total Protein Cancelled Albumin Cancelled Globulin Cancelled Albumin/Globulin Ratio Cancelled Urine Color Urine Appearance (Clear) Urine pH (4.5-7.5) Ur Specific [place] (1.000-1.030) Urine Protein (Negative) Urine Glucose (UA) (Negative) Urine Ketones (Negative) Urine Blood (Negative) Urine Nitrite (Negative) Urine Bilirubin (Negative) Urine Urobilinogen (Negative) Ur Leukocyte Esterase (Negative) Digoxin 1.9 (0.8-2.0) ng/ml Blood Type Antibody Screen Crossmatch 07/24/19 07/24/19 07/24/19 Range/Units 16:59 16:59 18:10 WBC (4.8-10.8) K/uL RBC (4.2-5.4) M/uL Hgb (12.0-16.0) g/dL Hct (37-47) % MCV (80-100) fL MCH (25-34) pg MCHC (32-36) g/dL RDW Std Deviation (36.4-46.3) fL RDW Coeff of Gerardo (11.5-14.5) % Plt Count (130-400) K/uL MPV (7.4-10.4) fL Immature Gran % (Auto) % Neut % (Auto) % Lymph % (Auto) % [place] % (Auto) % Eos % (Auto) % Baso % (Auto) % Immature Gran # (Auto) (0.00-0.02) K/uL Neut # (Auto) (1.4-6.5) K/uL Lymph # (Auto) (1.2-3.4) K/uL [place] # (Auto) (0.11-0.59) K/uL Eos # (Auto) (0-0.5) K/uL Baso # (Auto) (0-0.2) K/uL Absolute Nucleated RBC (0-0) K/uL Nucleated RBC % (auto) % Toxic Vacuolation Anisocytosis PT Cancelled INR Cancelled APTT Cancelled PTT Ratio Cancelled Sodium Potassium Chloride Carbon Dioxide Anion Gap BUN Creatinine Est Cr Clr Drug Dosing Est GFR ( Amer) Est GFR (Non-Af Amer) BUN/Creatinine Ratio Glucose POC Glucose (70-99) mg/dl Lactate 1.1 (0.4-2.0) mmol/L Calcium Magnesium Total Bilirubin AST ALT Alkaline Phosphatase Troponin I NT-Pro-B Natriuret Pep Total Protein Albumin Globulin Albumin/Globulin Ratio Urine Color Yellow Urine Appearance Clear (Clear) Urine pH 5.0 (4.5-7.5) Ur Specific [place] 1.014 (1.000-1.030) Urine Protein Negative (Negative) Urine Glucose (UA) Negative (Negative) Urine Ketones Negative (Negative) Urine Blood Negative (Negative) Urine Nitrite Negative (Negative) Urine Bilirubin Negative (Negative) Urine Urobilinogen Negative (Negative) Ur Leukocyte Esterase Negative (Negative) Digoxin (0.8-2.0) ng/ml Blood Type Antibody Screen Crossmatch 07/24/19 07/24/19 07/24/19 Range/Units 18:55 18:55 19:50 WBC (4.8-10.8) K/uL RBC (4.2-5.4) M/uL Hgb (12.0-16.0) g/dL Hct (37-47) % MCV (80-100) fL MCH (25-34) pg MCHC (32-36) g/dL RDW Std Deviation (36.4-46.3) fL RDW Coeff of Gerardo (11.5-14.5) % Plt Count (130-400) K/uL MPV (7.4-10.4) fL Immature Gran % (Auto) % Neut % (Auto) % Lymph % (Auto) % [place] % (Auto) % Eos % (Auto) % Baso % (Auto) % Immature Gran # (Auto) (0.00-0.02) K/uL Neut # (Auto) (1.4-6.5) K/uL Lymph # (Auto) (1.2-3.4) K/uL [place] # (Auto) (0.11-0.59) K/uL Eos # (Auto) (0-0.5) K/uL Baso # (Auto) (0-0.2) K/uL Absolute Nucleated RBC (0-0) K/uL Nucleated RBC % (auto) % Toxic Vacuolation Anisocytosis PT 12.6 H INR 1.2 H APTT 30.5 PTT Ratio 1.1 Sodium 141 Potassium 6.2 H* Chloride 108 H Carbon Dioxide 30 Anion Gap 2.0 L BUN 100 H Creatinine 2.43 H Est Cr Clr Drug Dosing 25.0 Est GFR ( Amer) 21.8 Est GFR (Non-Af Amer) 18.8 BUN/Creatinine Ratio 41.2 H Glucose 47 L* POC Glucose 48 L* (70-99) mg/dl Lactate (0.4-2.0) mmol/L Calcium 8.5 Magnesium 3.2 H Total Bilirubin 0.6 AST 9 L ALT 12 Alkaline Phosphatase 59 Troponin I NT-Pro-B Natriuret Pep 2319 H Total Protein 7.4 Albumin 2.9 L Globulin 4.5 H Albumin/Globulin Ratio 0.6 L Urine Color Urine Appearance (Clear) Urine pH (4.5-7.5) Ur Specific [place] (1.000-1.030) Urine Protein (Negative) Urine Glucose (UA) (Negative) Urine Ketones (Negative) Urine Blood (Negative) Urine Nitrite (Negative) Urine Bilirubin (Negative) Urine Urobilinogen (Negative) Ur Leukocyte Esterase (Negative) Digoxin (0.8-2.0) ng/ml Blood Type Antibody Screen Crossmatch 07/24/19 07/24/19 07/24/19 Range/Units 20:14 20:53 21:48 WBC (4.8-10.8) K/uL RBC (4.2-5.4) M/uL Hgb (12.0-16.0) g/dL Hct (37-47) % MCV (80-100) fL MCH (25-34) pg MCHC (32-36) g/dL RDW Std Deviation (36.4-46.3) fL RDW Coeff of Gerardo (11.5-14.5) % Plt Count (130-400) K/uL MPV (7.4-10.4) fL Immature Gran % (Auto) % Neut % (Auto) % Lymph % (Auto) % [place] % (Auto) % Eos % (Auto) % Baso % (Auto) % Immature Gran # (Auto) (0.00-0.02) K/uL Neut # (Auto) (1.4-6.5) K/uL Lymph # (Auto) (1.2-3.4) K/uL [place] # (Auto) (0.11-0.59) K/uL Eos # (Auto) (0-0.5) K/uL Baso # (Auto) (0-0.2) K/uL Absolute Nucleated RBC (0-0) K/uL Nucleated RBC % (auto) % Toxic Vacuolation Anisocytosis PT INR APTT PTT Ratio Sodium Potassium Chloride Carbon Dioxide Anion Gap BUN Creatinine Est Cr Clr Drug Dosing Est GFR ( Amer) Est GFR (Non-Af Amer) BUN/Creatinine Ratio Glucose POC Glucose 93 91 (70-99) mg/dl Lactate (0.4-2.0) mmol/L Calcium Magnesium Total Bilirubin AST ALT Alkaline Phosphatase Troponin I NT-Pro-B Natriuret Pep Total Protein Albumin Globulin Albumin/Globulin Ratio Urine Color Urine Appearance (Clear) Urine pH (4.5-7.5) Ur Specific [place] (1.000-1.030) Urine Protein (Negative) Urine Glucose (UA) (Negative) Urine Ketones (Negative) Urine Blood (Negative) Urine Nitrite (Negative) Urine Bilirubin (Negative) Urine Urobilinogen (Negative) Ur Leukocyte Esterase (Negative) Digoxin (0.8-2.0) ng/ml Blood Type A Positive Antibody Screen NEGATIVE Crossmatch See Detail Imaging Data Radiologist's Impression: Radiology results as stated below per my review and the radiologist's interpretation: XR chest 1V portable CLINICAL HISTORY: SOB dyspnea COMPARISON STUDY: 06/05/2018 FINDINGS: Moderate cardiac enlargement. Increased prominence of pulmonary vasculature. Bipolar cardiac pacemaker. IMPRESSION: Progressive components of pulmonary edema. ACT 112: Negative or not required by law. The above report was generated using voice recognition software. It may contain grammatical, syntax or spelling errors. Electronically signed by: Sen Magallon M.D. 07/24/2019 4:46 PM ECG Data Attestation: I personally reviewed and interpreted this ECG as follows: Indication: + SOB/dyspnea Rate (beats per minute): 60 Rhythm: + other (AV pacemaker ) ECG Intervals/blocks: + Normal QT-c (490) ECG ST segments: no ST elevation ECG Findings: no PVCs Blood Pressure Blood Pressure Findings: Low blood pressure Blood Pressure Disposition: further management by hospitalist [facility] Narrative There is no leukocytosis. The patient is anemic but this is a chronic issue for her and her hemoglobin is actually higher today than it was in the recent past. There is a normal platelet count. There is a slight elevation to the INR at 1.2, this is likely from her Eliquis use. Potassium was high at 6.2. There was some acute kidney injury with a creatinine of 2.43. BUN was also elevated. Glucose returned quite low in the 40s. A repeat blood sugar after a dose of IV dextrose showed a value in the 90s. No worrisome liver enzyme elevation. BNP was elevated consistent with fluid overload. EKG shows a paced rhythm, no acute ischemia. Urinalysis does not show infection. Digoxin level was normal. Chest film does not show pneumonia, CHF and pleural effusions were seen. During the patient's ED stay, she had a dark bowel movement, heme test confirmed the stool to be heme positive. The patient was aggressively managed. She had multiple issues and multiple findings on work-up. She had a Veliz catheter placed to monitor urine output. She was given IV Lasix as a diuresis and to help lower the potassium value. She was given a bolus of IV Protonix and placed on a Protonix drip. She did receive a dose of IV dextrose because of the lower sugar value. She was eventually placed on BiPAP to aid her breathing. The BiPAP was removed later in her ED stay as she was asking to go back to just nasal cannula oxygen. She had a lower temperature and thus a Dhiraj hugger was applied. The patient has CHF. She has acute kidney injury, a high potassium and what appears to be a GI bleed. She is not to be intubated as per her paperwork. She has multiple findings and certainly, her findings explain her complaints. The patient requires a hospital stay. I did order for blood to be transfused if her hemoglobin were to drop further, no blood was given in the ED. I did speak to case management, the on-call hospitalist has been consulted. Of note, patient's blood pressure was low at times during ED stay but, she was basically asymptomatic. No tachycardia. Continuous Cardiac Monitoring: An order was placed for continuous cardiac monitoring. The monitor shows a rate of 62 with an AV paced rhythm. Impression & Plan SOB (shortness of breath), CHF (congestive heart failure), Acute kidney injury, Hyperkalemia, Hypoglycemia, Heme positive stool Discharge Plan Visit Data Chief Complaint: Shortness of Breath/Dyspnea Stated Complaint: sob, ams ED Provider: Tae Hernandez Discharge Problem: SOB (shortness of breath), CHF (congestive heart failure), Acute kidney injury, Hyperkalemia, Hypoglycemia, Heme positive stool Patient Disposition: Being Evaluated by Hospitalist Discharge Instructions Interventions: ED Discharge Assessment Last Done: 07/24/19 23:59 Forms Stand Alone Forms: [employer] Prescriptions Prescriptions: No Action apixaban [Eliquis] 5 mg tablet 5 mg PO BID RF: 0 aspirin 81 mg tablet,chewable 81 mg PO QAM RF: 0 carvedilol [Coreg] 6.25 mg tablet 6.25 mg PO BID RF: 0 cholecalciferol (vitamin D3) 2,000 unit capsule 2,000 units PO QAM RF: 0 digoxin 125 mcg tablet 0.125 mg PO Q2D RF: 0 ferrous sulfate 325 mg (65 mg iron) tablet,delayed release (DR/EC) 325 mg PO BIDM RF: 0 insulin asp prt-insulin aspart [Novolog Mix 70-30 U-100 Insuln] 100 unit/mL (70-30) solution 48 units SQ QAM RF: 0 insulin asp prt-insulin aspart [Novolog Mix 70-30 U-100 Insuln] 100 unit/mL (70-30) solution 35 units SQ QPM RF: 0 insulin aspart U-100 [Novolog Flexpen U-100 Insulin] 100 unit/mL insulin pen 4 units SQ QDL RF: 0 sennosides-docusate sodium 8.6-50 mg tablet 1 tab PO BID RF: 0 amiodarone 200 mg tablet 200 mg PO QAM Qty: 90 RF: 3 levothyroxine 75 mcg Tablet 75 mcg PO QAM RF: 0 polyethylene glycol 3350 [Miralax] 17 gram Powder In Packet 17 g PO QAM RF: 0 acetaminophen 500 mg Tablet 1,000 mg PO Q6H MDD 3000 GMS /DAY PRN (Reason: Pain) RF: 0 isosorbide mononitrate 30 mg Tablet Extended Release 24 Hr 30 mg PO QAM RF: 0 gabapentin [Neurontin] 100 mg capsule 100 mg PO BID Qty: 0 RF: 0 trazodone 50 mg Tablet 50 mg PO HS 30 Days Qty: 30 RF: 0 Insta-Glucose Application 1 applic PO DIRECTED PRN (Reason: Hypoglycemia) RF: 0 bisacodyl [Dulcolax (bisacodyl)] 10 mg Suppository 10 mg SD DIRECTED PRN (Reason: Constipation) RF: 0 Enema 19-7 gram/118 mL Enema 118 ml SD DIRECTED PRN (Reason: Constipation) RF: 0 furosemide 20 mg Tablet 20 mg PO BID RF: 0 naproxen 500 mg Tablet 500 mg PO BID RF: 0 magnesium hydroxide [Milk Of Magnesia Concentrated] 2,400 mg/10 mL Suspension 10 ml PO DIRECTED PRN (Reason: Constipation) RF: 0 Lactinex 1 million cell Tablet,Chewable 1 tab PO TID RF: 0 Referrals Referrals: [facility] [Primary Care Provider] - Discharge Problem: CHF (congestive heart failure) Qualifiers: Heart failure type: unspecified Heart failure chronicity: unspecified Qualified Code(s): I50.9 - Heart failure, unspecified The scribe's documentation has been prepared under my direction and personally reviewed by me in its entirety. I confirm that the note above accurately reflects all work, treatment, procedures, and medical decision making performed by me.
[2019-07-24 18:25] LABS: Appearance Urine Clear (Clear); Bilirubin Urine Negative (Negative); Blood Urine Negative (Negative); Color Urine Yellow; Glucose Urine UA Negative (Negative); Ketones Urine Negative (Negative); Leukocyte Esterase Urine Negative (Negative); Nitrite Urine Negative (Negative); Protein Urine Negative (Negative); Specific Gravity Urine 1.014 (1.000-1.030); Urobilinogen Urine Negative (Negative)
[2019-07-24 19:22] LABS: INR 1.2 (0.9-1.1); Partial Thromboplastin Ratio 1.1; Partial Thromboplastin Time 30.5 Seconds (21.0-31.0); Prothrombin Time 12.6 Seconds (9.0-12.0)
[2019-07-24 19:47] LABS: Albumin Globulin Ratio 0.6 (0.9-2); Albumin Level 2.9 gm/dl (3.4-5.0); BUN Creatinine Ratio 41.2 (10-20); Bilirubin,Total 0.6 mg/dl (0.2-1); Calcium 8.5 mg/dl (8.5-10.1); Est GFR (African American) 21.8; Est GFR (Non-African American) 18.8; Globulin 4.5 gm/dl (2.5-4.0); Magnesium 3.2 mg/dl (1.8-2.4); Potassium 6.2 mmol/L (3.5-5.1); Total Protein 7.4 gm/dl (6.4-8.2)
[2019-07-24] MEDS ORDERED: DEXTROSE 50% 50 ML SYRINGE IV ONE (19:51)
[2019-07-24] MEDS ORDERED: SODIUM CHLORIDE 0.9% 250 ML IV PRN (21:22)
[2019-07-24] MEDS ORDERED: PANTOprazole 80 MG in DEXTROSE 5% 100 ML IV ONE (21:45)
[2019-07-24] MEDS ORDERED: PANTOprazole 40 MG in DEXTROSE 5% 100 ML IV SCH (22:00)
[2019-07-24] MEDS ORDERED: NovoLIN-R INSULIN PER UNIT CHARGE IV STA (22:31)
[2019-07-24] MEDS ORDERED: DEXTROSE 50% 50 ML SYRINGE IV STA (22:31)
[2019-07-24] MEDS ORDERED: CALCIUM GLUCONATE 10% 1,000 MG in SODIUM CHLORIDE 0.9% 50 ML IV STA (22:31)
[2019-07-25] MEDS ORDERED: ICU PROTOCOL FOR HYPERGLYCEMIA PRN (00:32)
[2019-07-25] MEDS ORDERED: SOD PHOSPHATE/SOD BIPHOSPHATE ENEMA 132 ML BTL PR PRN (00:32)
[2019-07-25] MEDS ORDERED: bisacodyL 10 MG SUPP PR PRN (00:32)
--- NOTE | 2019-07-25 00:48 | Critical Care Consultation ---
Date of Consultation July 25, 2019 Assessment & Plan (1) Admitted to intensive care unit: Reason Critically Ill: 73-year-old female presenting with acute on chronic respiratory failure in the setting of acute CHF exacerbation with acute on chronic kidney injury resulting in hyperkalemia and need for close electrolyte management, noninvasive ventilatory techniques, and close hemodynamic monitoring. NEURO - * CAM ICU: NEGATIVE * Patient drowsy on arrival, but does answer questions appropriately. CARDIAC/VASCULAR - * Acute CHF exacerbation: * Patient currently on 40 mg oral Lasix twice daily. * Agree with gentle diuresis at this point. * Positive pressure ventilatory techniques as needed. * Check troponin as EKG is not helpful/useful in the ventricularly paced patient. * Monitor on telemetry. * CAD/A. fib/hypertension/hyperlipidemia/PVD: * Continue all home medications as tolerated. * Patient with prior ICD placement secondary to EF of 20 to 25%, however this has improved to approximately 55% on echocardiogram reviewed from 2019. * Monitor on telemetry. RESPIRATORY - * Acute on chronic respiratory failure with hypoxia: * Likely secondary to acute CHF exacerbation in the chronic respiratory failure patient with likely obesity hypoventilation syndrome. * Agree with BiPAP with low gradient settings as patient does not require ventilation as much as consistent positive pressure support to increase oxygenation and hydrostatic pressure for resorption of pulmonary edema. * Reviewed chest x-ray and worsened from prior admission. * Continue with Lasix dosing. * Will check VBG initially. ABG if necessary. * In conversation with patient, she is adamant that she would not wish to be intubated. Her prior visit CODE STATUS does reflect this as well. * Will check influenza. GI/NUTRITION - * Heme positive stools: * Black stools had previously been noted during hospitalizations. Additionally, patient has had history of heme positive stools recently. Received Protonix bolus and drip in the emergency department. * Patient certainly does have risk factors for upper GI bleed source particular in a patient with chronic aspirin therapy as well as concomitant Eliquis therapy. * Her H&H is actually improved from prior which is certainly encouraging at this point. * Will trend H&H throughout the night. * If we have stabilization, will likely transition to twice daily dosing. * This appears to be a chronic condition as the patient did require transfusion of PRBCs during recent hospitalization secondary to heme positive stools with trending down of H&H. * Agree with consultation of gastroenterology, however uncertain of patient's stability for intervention or diagnostic therapies at this time. * Prophylaxis: Protonix drip RENAL/LYTES - * Acute kidney injury on chronic kidney disease stage IV: * Baseline creatinine of 1.9. * Complicated by hyperkalemia as well as pulmonary edema. * Previously responded well to IV Lasix. * Will continue to diurese gently. * Received calcium, insulin, and glucose in the emergency department. * Will trend serially and intervene therapeutically if necessary. * Appreciate nephrology consultation/guidance. - * Veliz in place - Strict I&Os. ENDO - * Hypoglycemia: * BSGs per unit protocol. ISS --> gtt per unit policy. HEME - * Anemia: * Appears to be a chronic issue at this point. * Concerning with heme positive stools. * Consented for transfusion per hospitalist. ID - * While patient does have chronic venous insufficiency with what appears to be stasis dermatitis to the legs bilaterally, she has recently been treated with outpatient Omnicef after transitioning from Bactrim. * Lactate is not elevated. * Will check procalcitonin. * Not as concerned for acute infectious causes at this time. * Blood cultures pending. LINES/IV ACCESS - * PIVs x2 * Veliz catheter. DVT PROPHYLAXIS - * Hold on chemoprophylaxis at this time pending heme positive stool evaluation. * SCDs I have personally spent 40 minutes of critical care time in the direct management of this patient. This is a life/limb threatening event. This includes time spent evaluating patient, direct bedside care, chart review, placing orders, interpretation of diagnostic studies, discussion with consultants, patient, and family members, as well as other required patient management activities. This time is exclusive of all separately billable procedures, and teaching time and separate from and in addition to any other critical care service time. Thank you for allowing us to participate in the care of this patient. Please refer to my attending physician's documentation for any further recommendations. (2) CHF (congestive heart failure): (3) Acute kidney injury: (4) Hyperkalemia: (5) Hypoglycemia: (6) Renal failure (ARF), acute on chronic: (7) SOB (shortness of breath): (8) Heme positive stool: (9) Hypoxia: Supervising Physician Co-Signing Physician Notes I saw and evaluated the patient with Madalyn Chavez, and agree with findings and plan as documented in the note. 72 female with history of CHF, CKD, mentally challenged comes to the hospital with complaints of shortness of breath bilateral lower extremity swelling and hyperkalemia. Continue with BiPAP to keep saturation above 90. IV Lasix. Monitor electrolytes. EKG. Follow-up nephrology and cardiology recommendations. Patient does not want to be intubated as per her POLST form. I have personally spent 35 minutes of critical care time in the direct management of this patient. This is a life/limb threatening event. This includes time spent evaluating patient, direct bedside care, chart review, placing orders, interpretation of diagnostic studies, discussion with consultants, patient, and family members, as well as other required patient management activities. This time is exclusive of all separately billable procedures, and teaching time and separate from and in addition to any other critical care service time. Please note the above document was generated using voice recognition software. It may contain grammatical, syntax or spelling errors. History of Present Illness Attending Physician: Avinash Mena MD History of Present Illness Patient is a 73-year-old female with a significant past medical history of coronary artery disease status post PTCI with MIL placement, A. fib currently on amiodarone, digoxin, and Eliquis with AICD placement, hypertension, hyperlipidemia, peripheral vascular disease, CHF, chronic respiratory failure, anemia, CKD 4, diabetes, and recurrent venous stasis ulcers with peripheral vascular disease. She presented to the emergency department today with concerns for altered mental status, hypothermia, hypoglycemia, and hypoxia. The patient wears 3 L nasal cannula at baseline. She was noted to have increasing respiratory difficulty in the senior living setting over the last several hours. She was brought to the emergency department where she was found to be hypoxic on those 3 L. She was placed on BiPAP after chest x-ray confirm suspicion of volume overload. She received IV Lasix. She was found to be hyperkalemic with a potassium of 6.2. She received calcium gluconate, insulin, and dextrose. She tolerated the BiPAP well and continue to maintain saturations. Patient has been having black stools and Hemoccult testing was positive. She received Protonix bolus followed by drip. She was subsequently transferred to the ICU for ongoing evaluation and management. On arrival in the ICU, the patient is awake and alert. She is drowsy. She is aware of pain, year, month, and location. She is slow to answer questions, but does answer questions appropriately. She offers no complaints of pain at this time. She does report that her rash under the bilateral breasts and in the pannus area are chronic. She reports no headaches, shortness of breath, chest pain, palpitations, nausea, vomiting, or abdominal pain Allergies Allergy/AdvReac Type Severity Reaction Status Date / Time sulfamethoxazole AdvReac Intermediate hyperkalemi Verified 07/24/19 16:42 [From Bactrim] a trimethoprim [From Bactrim] AdvReac Intermediate hyperkalemi Verified 07/24/19 16:42 a Home Medications Home Medications Medication Instructions Recorded Confirmed Type apixaban 5 mg tablet 5 mg PO BID 02/22/18 07/24/19 History aspirin 81 mg chewable tablet 81 mg PO QAM 02/22/18 07/24/19 History carvedilol 6.25 mg tablet 6.25 mg PO BID 02/22/18 07/24/19 History cholecalciferol (vitamin D3) 50 2,000 units PO QAM 02/22/18 07/24/19 History mcg (2,000 unit) capsule digoxin 125 mcg (0.125 mg) tablet 0.125 mg PO Q2D 02/22/18 07/24/19 History ferrous sulfate 325 mg (65 mg 325 mg PO BIDM tab 02/22/18 07/24/19 History iron) tablet,delayed release insulin aspar prt-insulin aspart 35 units SQ QPM ml 02/22/18 07/24/19 History 100 unit/mL (70-30) subcutaneous soln insulin aspar prt-insulin aspart 48 units SQ QAM ml 02/22/18 07/24/19 History 100 unit/mL (70-30) subcutaneous soln insulin aspart U-100 100 unit/mL 4 units SQ QDL ml 02/22/18 07/24/19 History (3 mL) subcutaneous pen sennosides 8.6 mg-docusate sodium 1 tab PO BID 02/22/18 06/05/19 History 50 mg tablet levothyroxine 75 mcg PO QAM 08/30/18 07/24/19 History polyethylene glycol 3350 [Miralax] 17 g PO QAM 01/25/19 07/24/19 History amiodarone 200 mg tablet 200 mg PO QAM #90 tab 04/13/19 07/24/19 Rx acetaminophen 1,000 mg PO Q6H PRN MDD 3000 GMS 05/16/19 07/24/19 History /DAY isosorbide mononitrate 30 mg PO QAM 06/05/19 07/24/19 History gabapentin [Neurontin] 100 mg PO BID #0 cap 06/11/19 07/24/19 Rx trazodone 50 mg PO HS 30 Days #30 tab 06/13/19 07/24/19 Rx Insta-Glucose Application 1 applic PO DIRECTED PRN 07/24/19 07/24/19 History Lactobacillus acidoph-L.bulgar 1 tab PO TID 07/24/19 07/24/19 History [Lactinex] bisacodyl [Dulcolax (bisacodyl)] 10 mg UT DIRECTED PRN 07/24/19 07/24/19 History furosemide 20 mg PO BID 07/24/19 07/24/19 History magnesium hydroxide [Milk Of 10 ml PO DIRECTED PRN 07/24/19 07/24/19 History Magnesia Concentrated] naproxen 500 mg PO BID 07/24/19 07/24/19 History sodium phosphates [Enema] 118 ml UT DIRECTED PRN 07/24/19 07/24/19 History Patient History Medical History A-fib (Chronic) Acquired claw toe of left foot (Acute) Acquired claw toe of right foot (Acute) Acquired hallux valgus of right foot (Acute) Anemia (Chronic) Anemia (Chronic) Atrial fibrillation (Chronic) CHF (congestive heart failure) (Chronic) CHF (congestive heart failure) (Chronic) Chronic venous insufficiency (Chronic) CKD (chronic kidney disease), stage IV Coronary artery disease (Chronic) Diabetes 1.5, 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 (Acute) Diabetic neuropathy (Chronic) DM type 2 (diabetes mellitus, type 2) (Chronic) Hallux valgus (acquired), left foot (Acute) History of osteomyelitis (Chronic) "R third toe" History of uterine cancer (Chronic) "s/p XRT" HTN (hypertension) (Chronic) Hyperlipidemia (Chronic) Mild intellectual disability (Chronic) Pacemaker (Chronic) Type 2 diabetes mellitus with diabetic peripheral angiopathy without gangrene (Acute) Uterine cancer (Resolved) Surgical History History of amputation of lesser toe of right foot (Chronic) History of amputation of lesser toe of right foot (Acute) History of lumpectomy of left breast (Resolved) History of total bilateral knee replacement (Chronic) S/P cardiac pacemaker procedure (Resolved) S/P cholecystectomy (Chronic) S/P cholecystectomy (Resolved) Status post bilateral knee replacements (Resolved) Status post placement of cardiac pacemaker (Chronic) Family History Mother Pneumonia Social History Preferred Language: Greek Communication Ability: Impaired Visual Impairment: No Limitations 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: Normal Creative Technologist Required: No Beliefs That Will Affect Care: None marital status: Current Living Situation: Prison Current Living Situation Comment: House of Care Feels Safe at Home: Yes Safety Concerns: Feels Safe At This Time Smoking Status: Never smoker Second Hand Exposure: No ; Hx Alcohol Use: No Hx Substance Use: No Review of Systems Review of Systems: All systems reviewed & are unremarkable except as noted in HPI & below Physical Exam Physical Exam: VITAL SIGNS - Vital signs and nursing notes were reviewed. GENERAL - 73-year-old female appearing her stated age who is in no acute distr ess. Drowsy and slow to answer questions. Does answer appropriately. SKIN - Extremities per below. Erythematous rash noted in the intertriginous areas throughout. HEAD - NC/AT. EYES - PERRL with EOMI bilaterally. Sclera anicteric. EARS - No deformities of external structures noted on gross examination bilaterally. NOSE - Midline and without cyanosis. BiPAP in place. MOUTH/OROPHARYNX - Without perioral cyanosis. Buccal mucosa pink and dry. NECK - Neck with FROM. FROM noted. LUNGS - Chest wall symmetric without accessory muscle use, intercostals retractions, or central cyanosis. Normal vesicular breath sounds CTA B/L. No wheezes, rales, or rhonchi appreciated. CARDIAC - RRR with S1/S2. No murmur, rubs, or gallops appreciated. No reproducible tenderness to palpation appreciated over the anterior chest wall. ABDOMEN - Abdominal contour obese without pulsations or visible masses. BS normoactive all four quadrants. No tenderness, palpable masses, hepatosplenomegaly, or ascites noted. EXTREMITIES - Chronic venous stasis changes noted to the lower extremities bilaterally from the knees to the feet. Pretibial edema present bilaterally. +3/5 radial and dorsalis pedis pulses palpated throughout. +3/5 strength noted in UE/LE bilaterally. NEUROLOGIC - Cranial nerves II through XII grossly intact. Sensory intact to light touch throughout. PSYCH - A&Ox3 and cooperates fully with examiner. Drowsy yet appropriate. Results & Data Vital Signs (Past 12 Hours) Vital Signs Temp Pulse Pulse Resp BP BP Pulse Ox 07/25/19 00:15 38.9 C H 64 24 110/59 L 95 07/24/19 23:59 63 24 103/53 L 95 07/24/19 23:45 35.8 C L 07/24/19 23:30 60 23 107/50 L 93 07/24/19 23:24 60 19 115/62 94 07/24/19 22:31 60 24 112/66 96 07/24/19 22:10 62 17 97 07/24/19 22:01 60 20 92 07/24/19 22:00 60 21 123/58 L 96 07/24/19 21:50 60 24 94 07/24/19 21:40 60 20 97 07/24/19 21:31 67 38 H 96 07/24/19 21:30 60 21 120/60 98 07/24/19 21:20 60 27 H 94 07/24/19 21:17 60 20 95 07/24/19 21:10 62 24 94 07/24/19 21:01 60 19 93 07/24/19 21:00 60 24 130/69 94 07/24/19 20:50 60 17 94 07/24/19 20:40 60 16 94 07/24/19 20:31 60 13 112/58 L 90 07/24/19 20:30 60 19 112/58 L 91 07/24/19 20:20 60 16 95 07/24/19 20:10 60 17 98 07/24/19 20:00 60 23 94/61 L 93 01/28/20 19:50 65 22 93 07/24/19 19:40 60 21 94 07/24/19 19:31 60 18 96 07/24/19 19:30 60 18 110/48 L 95 07/24/19 19:20 62 18 95 07/24/19 19:10 60 19 92 07/24/19 19:01 69 23 92 07/24/19 19:00 63 20 93/60 L 92 07/24/19 18:50 60 19 94 07/24/19 18:40 63 18 93 07/24/19 18:31 60 17 93 07/24/19 18:30 60 16 94/47 L 95 07/24/19 18:20 60 17 99 07/24/19 18:13 60 18 94/34 L 96 07/24/19 18:12 60 18 96 07/24/19 18:11 60 28 H 90/33 L 96 07/24/19 18:10 61 20 85/57 L 07/24/19 18:09 61 21 101/35 L 07/24/19 18:00 67 21 93 07/24/19 17:50 60 24 98 07/24/19 17:40 60 16 96 07/24/19 17:31 60 17 95 07/24/19 17:30 60 17 117/56 L 96 07/24/19 17:20 60 23 97 07/24/19 17:10 61 18 95 07/24/19 17:05 60 22 95/57 L 96 07/24/19 17:00 60 23 95/57 L 96 07/24/19 16:50 69 22 97 07/24/19 16:40 60 22 95 07/24/19 16:30 60 20 96 07/24/19 16:20 60 21 98 07/24/19 16:16 96 07/24/19 16:10 65 21 97 07/24/19 16:00 60 20 96 07/24/19 15:50 61 18 96 07/24/19 15:40 36.4 C L 60 21 95 07/24/19 15:38 60 18 99/48 L 93 07/24/19 15:35 60 19 81/50 L 93 07/24/19 15:34 60 20 Coding Level of Care Code Critical Care 1st 30-74 mins Diagnoses Admitted to intensive care unit Z78.9 CHF (congestive heart failure) I50.9 Heart failure chronicity: unspecified Heart failure type: unspecified Acute kidney injury N17.9 Hyperkalemia E87.5 Hypoglycemia E16.2 Renal failure (ARF), acute on chronic N17.9; N18.3 Acute renal failure type: unspecified Chronic kidney disease stage: stage 3 (moderate) SOB (shortness of breath) R06.02 Heme positive stool R19.5 Hypoxia R09.02 Time Spent (min) 35 (1) CHF (congestive heart failure) Heart failure chronicity: unspecified Heart failure type: unspecified Qualified Code(s): I50.9 - Heart failure, unspecified (2) Renal failure (ARF), acute on chronic Acute renal failure type: unspecified Chronic kidney disease stage: stage 3 (moderate) Qualified Code(s): N17.9 - Acute kidney failure, unspecified; N18.3 - Chronic kidney disease, stage 3 (moderate)
[2019-07-25 01:03] LABS: Base Excess VBG 2.6 mEq/L; HCO3 VBG 31 mmol/L; PCO2 VBG 67 mmHg (38-50); PO2 VBG 32 mmHg; pH VBG 7.28 (7.36-7.41)
[2019-07-25 01:06] LABS: Hematocrit (blood only) 30.5 % (37-47); Hemoglobin 8.6 g/dL (12.0-16.0)
[2019-07-25 01:07] LABS: Oxygen Saturation VBG < 60.0 %
--- NOTE | 2019-07-25 01:13 | History and Physical Report ---
DATE OF ADMISSION: 07/24/2019 CHIEF COMPLAINT: Shortness of breath and lethargy. HISTORY OF PRESENT ILLNESS: This is a 73-year-old female with past medical history significant for COPD, chronic kidney disease stage III to IV, history of hyperkalemia in the past, history of lower extremity cellulitis, history of chronic diastolic CHF, history of systolic CHF with EF of 20% to 25% previously status post ICD, but on recent echo EF improved, CAD status post stenting, history of left bundle branch block, history of peripheral vascular disease, chronic respiratory failure, on oxygen 2-3 liters, history of AFib status post pacemaker, history of hypertension, diabetes, anemia of chronic kidney disease, ambulatory dysfunction, obesity, mild intellectual disability, depression. The patient is currently a resident of [facility]. She walks a little bit, but needs assistance. On soft diet. The patient was here in last week of May with JASON and hyperkalemia thought to be from the Bactrim, which was stopped and she was discharged on Omnicef for lower extremity infection. Seems to have completed that course. The patient today, as per nursing staff at [facility], was found to be lethargic and they could not bring her oxygen up, she was saturating only 70s and 80s percentage. She was brought in here and when she came in she was tachypneic. She was placed on BiPAP and a rectal temperature showed she was hypothermic, placed on Dhiraj Hugger, and her labs came back with a creatinine of 2.4 and potassium of 6.2 and glucose was only 47. Lactate was 1.1. BNP 2300. Urinalysis was fine. Chest x-ray showed CHF picture and she was given a dose of IV Lasix. EKG showed paced rhythm. She was saturating okay on BiPAP. Currently changed the BiPAP to nasal cannula as the patient is not tolerating it and monitoring on nasal cannula. Could not get much history from the patient. She denies any chest pain, no abdominal pain, no nausea, no cough, no fever, no headache. She was just saying to take the BiPAP off. I talked to the son and notified that she is getting admitted and she has a conditional code with only CPR, no intubation. In the ER, she has also had black stools and she was heme positive, but hemoglobin is 9.5. Her hemoglobin was 8.9 a few days back. At the time of discharge last admission, hb was 8.4. ALLERGIES: BACTRIM. PAST MEDICAL HISTORY: As mentioned above. PAST SURGICAL HISTORY: Status post ICD placement, cardiac catheterization, amputation of right toe, bilateral knee arthroplasty, excision of the left breast mass, colonoscopy, laparoscopic cholecystectomy. MEDICATIONS: Currently, the patient is on Tylenol 1000 mg p.o. q. 6 hours p.r.n., amiodarone 200 mg p.o. a.m., Eliquis 5 mg p.o. b.i.d., aspirin 81 mg p.o. daily, Dulcolax p.r.n., Coreg 6.25 mg p.o. b.i.d., vitamin D 2000 units p.o. a.m., digoxin 125 mcg p.o. q. 2 days, ferrous sulfate 325 mg p.o. b.i.d., Lasix 20 mg p.o. b.i.d., Neurontin 100 mg p.o. b.i.d., insulin aspart 70/30 of 48 units in the a.m. and 35 units in p.m., insulin aspart 4 units subcutaneous q. dinner and lunch, isosorbide mononitrate 30 mg p.o. a.m., lactobacillus 1 tablet p.o. t.i.d., levothyroxine 75 mcg p.o. daily, milk of magnesia 10 mL p.r.n., naproxen 500 mg p.o. b.i.d., MiraLax 17 grams p.o. daily, Senokot S 1 tablet p.o. b.i.d., enema p.r.n., trazodone 50 mg p.o. at bedtime. FAMILY HISTORY: Significant for mother had cancer and heart failure. SOCIAL HISTORY: Currently living at [facility]. No smoking, no alcohol, no drug use as per records. REVIEW OF SYSTEMS: As per HPI, could not get complete review of systems as the patient is in somewhat distress.Hx of mild intellectual disability. PHYSICAL EXAMINATION: GENERAL: The patient is alert and awake, on BiPAP. VITAL SIGNS: Temperature when she came in was 36.3, pulse 62, respiratory rate 17, blood pressure 123/58, oxygen 97% currently on 2 liters. HEENT: No pallor, no icterus. Pupils equal, round, reactive to light. NECK: No JVD, no neck masses, no carotid bruits. CARDIOVASCULAR: S1, S2 heard, regular rate and rhythm, no murmur, no gallop. RESPIRATORY SYSTEM: Normal AP diameter. Currently no accessory muscle use. No wheezing, bibasilar crackles. ABDOMEN: Soft, bowel sounds present. Nontender. CENTRAL NERVOUS SYSTEM: Alert and awake. Moves extremities. EXTREMITIES: Lower extremity chronic skin changes seen. Mild bilateral edema seen and mild erythema. LABORATORY DATA: WBC 7.3, hemoglobin 9.5, hematocrit 33, platelets 249. PT 12.6, INR 1.2, APTT 30.5. Sodium 141, potassium 6.2, chloride 108, bicarbonate 30, BUN 100, creatinine 2.4, serum glucose 47. Lactate 1.1, calcium 8.5, magnesium 3.2, total bilirubin 0.6, AST 9, ALT 12, alkaline phosphatase 59. BNP 2300. Urinalysis, negative. Chest x-ray, progressive pulmonary edema. EKG: Shows AV dual paced rhythm at the rate of 60, no significant change was found. ASSESSMENT AND PLAN: This is a 73-year-old female, [facility] resident, history of chronic kidney disease stage III to IV, history of hyperkalemia in the past, history of paroxysmal atrial fibrillation, history of diastolic congestive heart failure, diabetes, hypertension, history of chronic lower extremity wounds, who presents with acute respiratory distress secondary to congestive heart failure and found to have acute kidney injury and hyperkalemia and also GI bleed and hypoglycemia and hypothermia. 1. Acute on chronic respiratory failure. Lqria-iu-eomavqe diastolic congestive heart failure, on Lasix 20 mg b.i.d. Initially requiring bipap. Received a dose of IV lasix 40 mg in the ER,. Veliz placed. Will continue with IV lasix 40 b.i.d. Follow echocardiogram.Consult cardiology in am. lose monitor in ICU 2. History of systolic congestive heart failure in the past with EF of 20% to 25%, status post automatic implantable cardioverter defibrillator, but last echo EF improved. We will follow the repeat echo closely. Currently placed on BiPAP, but the patient currently off of the BiPAP. We will monitor off of the BiPAP and consult cardiology in the a.m. Closely monitor in the ICU. 3. Hyperkalemia. The patient has history of hyperkalemia in the past, [facility] Presents with potassium of 6.2. We will avoid any nephrotoxic agents. Not on any potassium supplement. Received a dose of Lasix in the ER initially. Did not receive insulin initially because of hypoglycemia, but blood sugars improved. Will give IV insulin with dextrose and calcium gluconate and follow the repeat labs. Nephrology consulted and notified. Closely monitor. 4. Acute kidney injury on chronic kidney disease stage III to IV, baseline creatinine of 1.5, presently creatinine of 2.4, could be cardiorenal. Getting Lasix. We will follow the repeat labs. Nephrology consulted. 5. Hypoglycemia. The patient is on insulin at home, received dextrose. We will further repeat labs. Hold her home insulin and closely monitor. 6. Hypothermia, could be from congestive heart failure and hypoglycemia. On Dhiraj Hugger, will monitor. 7. Gastrointestinal bleed, black stools and Hemoccult positive. Hemoglobin stable at 9.5, but BUN is elevated at 100, could be possibly from GI bleed. Started on Protonix drip. Holding aspirin and Eliquis. N.p.o. except meds. Consult GI in a.m. Hemoglobin and hematocrit q. 6 hours. Got blood consent on phone with her son. 8. History of atrial fibrillation, rate controlled on amiodarone and Coreg and digoxin. Holding aspirin and Eliquis. We will monitor the heart rates. Status post pacemaker. 9. Diabetes, currently came with hypoglycemia. Holding home insulin. Placed on insulin sliding scale. 10. Coronary artery disease status post stent. Holding aspirin. Continue Imdur and Coreg with holding parameters. The patient is on Zocor. 11. Hypothyroidism, on Synthroid. 12.. History of bilateral lower extremity cellulitis. Recently had a course of Omnicef. Follow with wound care. 13. Ambulatory dysfunction. PT/OT when patient is stable. 14. Deep venous thrombosis prophylaxis. Holding Eliquis. Placed on sequential compression devices. CODE STATUS Conditional, okay with CPR, no intubation, confirmed with the son. DISPOSITION: We will admit to ICU because of multiple acute diagnoses and closely monitor in the ICU. PT and OT prior to discharge. Social service to help with discharge. Plan to discharge back to [facility] when patient is stable. KAYLA
[2019-07-25 01:18] LABS: BUN Creatinine Ratio 43.4 (10-20); Blood Urea Nitrogen 103 mg/dl (7-18); Calcium 8.7 mg/dl (8.5-10.1); Carbon Dioxide 31 mmol/L (21-32); Chloride 108 mmol/L (98-107); Est GFR (African American) 22.4; Est GFR (Non-African American) 19.3; Glucose 56 mg/dl (70-99); Magnesium 3.1 mg/dl (1.8-2.4); Sodium 141 mmol/L (136-145)
[2019-07-25 01:23] LABS: Creatine Kinase 44 U/L (26-192); Phosphorus 5.8 mg/dl (2.5-4.9); Troponin I < 0.015 ng/ml (0-0.045)
[2019-07-25] MEDS ORDERED: CARBOHYDRATES FOR HYPOGLYCEMIA PO PRN (03:05)
[2019-07-25] MEDS ORDERED: DEXTROSE 50% 50 ML SYRINGE IV PRN (03:05)
[2019-07-25] MEDS ORDERED: GLUCOSE 10 TABS/TUBE PO PRN (03:05)
[2019-07-25] MEDS ORDERED: GLUCOSE 40% GEL 15 GM TUBE PO PRN (03:05)
[2019-07-25] MEDS ORDERED: GLUCAGON FOR INJ 1 MG VIAL SQ PRN (03:05)
[2019-07-25] MEDS ORDERED: DEXTROSE 50% 50 ML SYRINGE IV ONE ×2 (03:08→04:43)
[2019-07-25 04:22] LABS: Base Excess VBG 2.8 mEq/L; HCO3 VBG 30 mmol/L; PCO2 VBG 65 mmHg (38-50); PO2 VBG 37 mmHg; pH VBG 7.29 (7.36-7.41)
[2019-07-25 04:23] LABS: Oxygen Saturation VBG < 60.0 %
[2019-07-25 04:39] LABS: Hemoglobin 8.3 g/dL (12.0-16.0); Mean Corpuscular Hemoglobin 26.5 pg (25-34); Mean Corpuscular Hgb Conc 27.7 g/dL (32-36); Mean Corpuscular Volume 95.8 fL (80-100); Mean Platelet Volume 8.7 fL (7.4-10.4); Platelet Count 191 K/uL (130-400); RDW Coefficient of Variation 21.3 % (11.5-14.5); RDW Standard Deviation 72.3 fL (36.4-46.3); Red Blood Count 3.13 M/uL (4.2-5.4); White Blood Count 6.98 K/uL (4.8-10.8)
[2019-07-25 04:43] LABS: BUN Creatinine Ratio 41.7 (10-20); Calcium 8.7 mg/dl (8.5-10.1); Creatinine Clr Calc Pharmacy 24.8 ml/min; Est GFR (African American) 22.1; Est GFR (Non-African American) 19.1; Phosphorus 5.7 mg/dl (2.5-4.9); Potassium 6.6 mmol/L (3.5-5.1)
[2019-07-25 04:51] LABS: Anisocytosis Present; Basophilic Stippling Occasional; Basophils # (auto) 0.02 K/uL (0-0.2); Basophils % (auto) 0.3 %; Eosinophils % (auto) 2.9 %; Hypochromasia Present; Immature Granulocytes # (auto) 0.01 K/uL (0.00-0.02); Immature Granulocytes % (auto) 0.1 %; Lymphocytes # (auto) 0.49 K/uL (1.2-3.4); Monocytes # (auto) 0.58 K/uL (0.11-0.59); Monocytes % (auto) 8.3 %; Neutrophils # (auto) 5.68 K/uL (1.4-6.5); Neutrophils % (auto) 81.4 %; Polychromasia 1+
[2019-07-25] MEDS ORDERED: ALBUTEROL 0.5% NEB SOLN 2.5 MG/0.5 ML VIAL NEB STA (04:52)
[2019-07-25] MEDS ORDERED: CALCIUM GLUCONATE 10% 2,000 MG in SODIUM CHLORIDE 0.9% 50 ML IV STA (04:59)
[2019-07-25] MEDS ORDERED: INSULIN HUMAN REGULAR PER UNIT 10 UNITS in SYRINGE 9.9 ML IV STA (05:00)
[2019-07-25] MEDS: LEVOTHYROXINE SODIUM 75 MCG TABLET PO SCH (05:26)
[2019-07-25] MEDS ORDERED: FUROSEMIDE 40 MG in SYRINGE 0 ML IV SCH (06:00)
[2019-07-25] MEDS: INSULIN ASPART 100 UNITS/ML 3 ML PEN SC SCH ×3 (06:06→18:05)
[2019-07-25 07:04] LABS: Influenza A virus by PCR Neg for Influ A (Neg); Influenza B virus by PCR Neg for Influ B (Neg)
[2019-07-25] MEDS ORDERED: FUROSEMIDE 40 MG in SYRINGE 0 ML IV ONE (07:41)
[2019-07-25] MEDS ORDERED: SODIUM POLYSTYRENE SULFONATE 30 GM/120 ML UDP PO STA (07:47)
[2019-07-25] MEDS ORDERED: SODIUM POLYSTYRENE 15 GM/60 ML 500ML BOTTLE PO STA (08:04)
--- NOTE | 2019-07-25 08:07 | Nephrology Consultation ---
Date of Consultation July 25, 2019 Assessment & Plan (1) Hyperkalemia: worsening despite IV insulin and lasix; no ECG changes. in past we had attributed K elevations to bactrim; for now culprit more likely naproxen and lasix at too low a dose as OP -urgent dialysis to treat definitively given trend>2.5 hrs on small dialyzer, 2K bath, up to 500 fluid removal if tolerated -reassess in am for need for repeat tx -agree w/ lasix 80 mg bid IV fo rnow -ensure when taking po she is on low k, low na, 1.2L FR diet Present on Admission?: Yes (2) Acute renal failure superimposed on stage 4 chronic kidney disease: CKd4 w/ baseline creatinine 1.6-1.9; presenting creatinine 2.4; not oliguric. suspect ischemic atn related to heart failure -daily bmp -dialysis as above; unclear if it will be permament -avoid nephrotoxins unless lifesaving -no nsaids; pls list as allergy Present on Admission?: Yes (3) CHF (congestive heart failure): -f/u TTE and cardiology recs; historically w/ pEF Present on Admission?: Yes History of Present Illness Reason for Consultation: hyperkalemia, deb Requesting Physician: Dr Pride Attending Physician: Avinash Mena MD History of Present Illness 73 y/o F whom I'm asked to see for hyperkalemia and DEB was admitted overnight for acute on chronic diastolic HF, hyperkalemia, acute on chronic renal failure, and concern for GI bleeding. She had been noted to be lethargic and hypoxic at her facility, w/ sats in 70-80% on 3L. her presenting K was 6.2, her creat was 2.4. she got lasix, she got insulin IV. she had a reasonable response to lasix w/ 350 mL uop after 40 mg IV. no ECG changes. CXR w/ pulmonary edema. she was admitted to ICU and started on bipap. digoxin levels wnl. despite medical therapy, K trended up this am to 6.6. Allergies Allergy/AdvReac Type Severity Reaction Status Date / Time sulfamethoxazole AdvReac Intermediate hyperkalemi Verified 07/24/19 16:42 [From Bactrim] a trimethoprim [From Bactrim] AdvReac Intermediate hyperkalemi Verified 07/24/19 16:42 a Home Medications Home Medications Medication Instructions Recorded Confirmed Type apixaban 5 mg tablet 5 mg PO BID 02/22/18 07/24/19 History aspirin 81 mg chewable tablet 81 mg PO QAM 02/22/18 07/24/19 History carvedilol 6.25 mg tablet 6.25 mg PO BID 02/22/18 07/24/19 History cholecalciferol (vitamin D3) 50 2,000 units PO QAM 02/22/18 07/24/19 History mcg (2,000 unit) capsule digoxin 125 mcg (0.125 mg) tablet 0.125 mg PO Q2D 02/22/18 07/24/19 History ferrous sulfate 325 mg (65 mg 325 mg PO BIDM tab 02/22/18 07/24/19 History iron) tablet,delayed release insulin aspar prt-insulin aspart 35 units SQ QPM ml 02/22/18 07/24/19 History 100 unit/mL (70-30) subcutaneous soln insulin aspar prt-insulin aspart 48 units SQ QAM ml 02/22/18 07/24/19 History 100 unit/mL (70-30) subcutaneous soln insulin aspart U-100 100 unit/mL 4 units SQ QDL ml 02/22/18 07/24/19 History (3 mL) subcutaneous pen sennosides 8.6 mg-docusate sodium 1 tab PO BID 02/22/18 06/05/19 History 50 mg tablet levothyroxine 75 mcg PO QAM 08/30/18 07/24/19 History polyethylene glycol 3350 [Miralax] 17 g PO QAM 01/25/19 07/24/19 History amiodarone 200 mg tablet 200 mg PO QAM #90 tab 04/13/19 07/24/19 Rx acetaminophen 1,000 mg PO Q6H PRN MDD 3000 GMS 05/16/19 07/24/19 History /DAY isosorbide mononitrate 30 mg PO QAM 06/05/19 07/24/19 History gabapentin [Neurontin] 100 mg PO BID #0 cap 06/11/19 07/24/19 Rx trazodone 50 mg PO HS 30 Days #30 tab 06/13/19 07/24/19 Rx Insta-Glucose Application 1 applic PO DIRECTED PRN 07/24/19 07/24/19 History Lactobacillus acidoph-L.bulgar 1 tab PO TID 07/24/19 07/24/19 History [Lactinex] bisacodyl [Dulcolax (bisacodyl)] 10 mg [place] DIRECTED PRN 07/24/19 07/24/19 History furosemide 20 mg PO BID 07/24/19 07/24/19 History magnesium hydroxide [Milk Of 10 ml PO DIRECTED PRN 07/24/19 07/24/19 History Magnesia Concentrated] naproxen 500 mg PO BID 07/24/19 07/24/19 History sodium phosphates [Enema] 118 ml [place] DIRECTED PRN 07/24/19 07/24/19 History Patient History Medical History A-fib (Chronic) Acquired claw toe of left foot (Acute) Acquired claw toe of right foot (Acute) Acquired hallux valgus of right foot (Acute) Anemia (Chronic) Anemia (Chronic) Atrial fibrillation (Chronic) CHF (congestive heart failure) (Chronic) CHF (congestive heart failure) (Chronic) Chronic venous insufficiency (Chronic) CKD (chronic kidney disease), stage IV Coronary artery disease (Chronic) Diabetes 1.5, 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 (Acute) Diabetic neuropathy (Chronic) DM type 2 (diabetes mellitus, type 2) (Chronic) Hallux valgus (acquired), left foot (Acute) History of osteomyelitis (Chronic) "R third toe" History of uterine cancer (Chronic) "s/p XRT" HTN (hypertension) (Chronic) Hyperlipidemia (Chronic) Mild intellectual disability (Chronic) Pacemaker (Chronic) Type 2 diabetes mellitus with diabetic peripheral angiopathy without gangrene (Acute) Uterine cancer (Resolved) Surgical History History of amputation of lesser toe of right foot (Chronic) History of amputation of lesser toe of right foot (Acute) History of lumpectomy of left breast (Resolved) History of total bilateral knee replacement (Chronic) S/P cardiac pacemaker procedure (Resolved) S/P cholecystectomy (Chronic) S/P cholecystectomy (Resolved) Status post bilateral knee replacements (Resolved) Status post placement of cardiac pacemaker (Chronic) Family History Mother Pneumonia Social History Preferred Language: [place] Communication Ability: Effective Visual Impairment: No Limitations 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: Normal 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 Beliefs That Will Affect Care: None marital status: Current Living Situation: Halfway Current Living Situation Comment: [facility] Feels Safe at Home: Yes Safety Concerns: Feels Safe At This Time Smoking Status: Never smoker Second Hand Exposure: No ; Hx Alcohol Use: No Hx Substance Use: No Review of Systems Review of Systems: All systems reviewed & are unremarkable except as noted in HPI & below (limited as pt on bipap) Constitutional: + fatigue and + weakness Respiratory: + dyspnea and + pain on inspiration Cardiovascular: no chest pain, no orthopnea and no edema Gastrointestinal: no abdominal pain, no vomiting and no diarrhea/loose stools Genitourinary: no dysuria, no difficulty urinating and no urinary frequency Musculoskeletal: leg pain not a concern today Physical Exam Constitutional: well developed, + obese and cooperative; + uncomfortable (on bipap, cognitive challenges) Eyes: EOM intact bilaterally ENMT: Ears: no external ear abnormality Nose: no external nose abnormality Mouth: + dry oral mucous membranes Neck: no nuchal rigidity Respiratory: normal respiratory effort Auscultation: + diminished lung sounds (on bipap) Cardiovascular: RRR, no murmur, no edema Gastrointestinal (Abdomen): Inspection/Auscultation: normal bowel sounds Percussion/Palpation: abdomen soft; abdomen nontender Musculoskeletal: Extremities: strength 5/5 throughout Skin: no rashes, warm and dry chronic venous stasis changes BLe Neurologic: rueda, no speech on bipap but nods/shakes head, no tremor Psychiatric: Orientation: alert, oriented to person and oriented to place Affect: + anxious affect and + flat affect Genitourinary: yun w/ ample urine Results & Data Vital Signs (Past 12 Hours) Vital Signs Temp Pulse Pulse Resp BP BP Pulse Ox 07/25/19 07:46 60 18 998 H 07/25/19 06:31 60 14 130/56 L 100 07/25/19 05:31 60 17 116/49 L 100 07/25/19 05:23 60 20 96 07/25/19 04:31 36.3 C L 60 19 124/54 L 95 07/25/19 03:00 60 17 124/57 L 93 07/25/19 02:31 60 18 109/54 L 92 07/25/19 02:00 36.3 C L 60 16 91 07/25/19 01:31 60 17 107/57 L 93 07/25/19 01:19 63 20 96 07/25/19 00:32 60 07/25/19 00:31 35.9 C L 61 22 110/59 L 84 L 07/25/19 00:15 35.9 C L 64 24 110/59 L 95 07/24/19 23:59 63 24 103/53 L 95 07/24/19 23:45 35.8 C L 07/24/19 23:30 60 23 107/50 L 93 07/24/19 23:24 60 19 115/62 94 07/24/19 22:31 60 24 112/66 96 07/24/19 22:10 62 17 97 07/24/19 22:01 60 20 92 07/24/19 22:00 60 21 123/58 L 96 07/24/19 21:50 60 24 94 07/24/19 21:40 60 20 97 07/24/19 21:31 67 38 H 96 07/24/19 21:30 60 21 120/60 98 07/24/19 21:20 60 27 H 94 07/24/19 21:17 60 20 95 07/24/19 21:10 62 24 94 07/24/19 21:01 60 19 93 07/24/19 21:00 60 24 130/69 94 07/24/19 20:50 60 17 94 07/24/19 20:40 60 16 94 07/24/19 20:31 60 13 112/58 L 90 07/24/19 20:30 60 19 112/58 L 91 07/24/19 20:20 60 16 95 07/24/19 20:10 60 17 98 Laboratory Results 07/25/19 04:05 07/25/19 04:05 flu swab negative urine indices negative digoxin level not elevated Diagnostic Findings cxr Progressive components of pulmonary edema ecg AV paced; no change from prior (1) CHF (congestive heart failure) Heart failure chronicity: unspecified Heart failure type: unspecified Quali fied Code(s): I50.9 - Heart failure, unspecified (2) Acute renal failure superimposed on stage 4 chronic kidney disease Acute renal failure type: unspecified Qualified Code(s): N17.9 - Acute kidney failure, unspecified; N18.4 - Chronic kidney disease, stage 4 (severe)
[2019-07-25] MEDS ORDERED: HEPARIN SOD (PORCINE) 1000 UNIT/ML 10 ML VIAL ONE (08:19)
[2019-07-25] MEDS ORDERED: PERFLUTREN LIPID MICROSPHERE (DEFINITY) IV ONE (08:22)
[2019-07-25] MEDS: carvediloL 6.25 MG TAB PO SCH ×2 (08:31→21:28)
[2019-07-25] MEDS: FERROUS SULFATE 325 MG TAB PO SCH ×2 (08:32→18:03)
[2019-07-25] MEDS: AMIODARONE 200 MG TAB PO SCH (08:32)
[2019-07-25] MEDS: NYSTATIN POWDER 15GM BTL EXT SCH ×3 (08:33→21:30)
[2019-07-25] MEDS: POLYETHYLENE (MIRALAX) 17 GM PACK PO SCH (08:33)
[2019-07-25] MEDS: LACTOBACILLUS ACIDOPHILUS (FLORANEX) TAB PO SCH ×3 (08:33→21:28)
[2019-07-25] MEDS: GABAPENTIN 100 MG CAP PO SCH ×3 (08:34→21:30)
[2019-07-25] MEDS ORDERED: SODIUM CHLORIDE 0.9% 1000ML 1,000 ML IV PRN (08:40)
[2019-07-25] MEDS ORDERED: ISOSORBIDE MONO EXTENDED REL 30 MG TABCR PO SCH (09:00)
[2019-07-25] MEDS ORDERED: FUROSEMIDE 40 MG/4 ML VIAL IV SCH (09:00)
[2019-07-25] MEDS: HEPARIN IV BOLUS 2,500 UNITS in SYRINGE 0 ML FLUSH SCH ×2 (09:51→10:01)
[2019-07-25 10:01] LABS: Hepatitis B Surface Ab Quant 3.41 mIU/mL (>or=10mIU/mL Immune); Hepatitis B Surface Antibody Non-Immune
--- NOTE | 2019-07-25 10:06 | Procedure Note ---
Procedure Note Date of Service July 25, 2019 Procedure: Inserting ultrasound-guided Shiley catheter dual-lumen Medical Coding Instructor: Dr. Suhas Arriaga Indication: Acute renal failure Consent: Consent was given on the phone by Aime Diaz Anesthesia: 1% lidocaine without epinephrine local. Procedure: Consent was verified and timeout performed. Appropriate imaging studies were reviewed prior to the procedure. Under aseptic and sterile condition, right IJ vein was accessed under direct ultrasound guidance. Guidewire was confirmed to be within the lumen of vein with the help of ultrasound. Catheter was introduced via Seldinger technique. Guide a wire was removed. Good non-pulsatile blood flow was appreciated from all the ports. The catheter was placed at 16 cm and sutured in place. BioPatch was applied to the catheter and a sterile Tegaderm dressing was applied over the catheter with careful attention to sterility. Lung sliding was appreciated post procedure with the help ultrasound. Chest x-ray to follow Patient tolerated the procedure well. Blood loss: Less than 5 cc Complications: None Coding CPT Codes Tubes, Drains, and Vasc Access - Tubes, Drains, and Vasc Access: [id number] Insertion of cannula for hemodialysis ([id number]) Tubes, Drains, and Vasc Access - Tubes, Drains, and Vasc Access: [id number] Ultrasound Guidance For Vascular ([id number]) [facility] [place] Procedure Codes (Charges) Tubes, Drains, and Vasc Access Procedure 1: Tubes, Drains, and Vasc Access: [id number] Insertion of cannula for hemodialysis Procedure 2: Tubes, Drains, and Vasc Access: [id number] Ultrasound Guidance For Vascular
--- NOTE | 2019-07-25 10:11 | XRay Report ---
SINGLE VIEW CHEST CLINICAL HISTORY: Status post hemodialysis catheter placement. FINDINGS: An AP, portable, upright chest radiograph is compared to study dated 07/24/2019. A right int ernal jugular central venous catheter has been placed. The tip projects over the cavoatrial junction. A 3-lead cardiac AICD is unchanged in position. The heart is enlarged noting atherosclerotic calcifi cation of the thoracic aorta. There is pulmonary vascular congestion and interstitial edema. There ar e small pleural effusions with bibasilar consolidation. No pneumothorax is seen. The skeletal structu res are osteopenic. The bony thorax is grossly intact. IMPRESSION: 1. A right internal jugular central venous catheter has been placed as above. No pneumothorax is seen post procedure. 2. Cardiomegaly and AICD with evidence of congestive failure and interstitial edema. 3. Small pleural effusions with bibasilar consolidation. ACT 112: Negative or not required by law. Electronically signed by: Tae Bradshaw M.D. 07/25/2019 10:10 AM
[2019-07-25 10:12] LABS: Hepatitis B Surface Antigen Neg (Neg)
[2019-07-25] MEDS ORDERED: D5W AND 1/2NSS 1,000 ML IV SCH (10:15)
--- NOTE | 2019-07-25 10:33 | Cardiology Consultation ---
Date of Consultation July 25, 2019 Assessment & Plan (1) CHF (congestive heart failure): Mrs. Gudino is a 73 year old female with a history of Type 2 DM, Hypertension, Chronic Respiratory Failure, Anemia, Hypercholesterolemia, Paroxysmal Atrial Fibrillation, Resolved Ischemic Cardiomyopathy (20-25%, improved to 50% June 2017 following upgrade to Bi-V AICD), Congestive Heart Failure (no ACEI or ARB due to CRF), LBBB s/p Single Chamber ICD, Medtronic February 2015 with upgrade to Bi-V AICD October 2016), PAD, and CAD s/p Distal RCA Stents (with severe non intervened LAD, borderline LCx disease, April 2014) -- who was admitted to [facility] on 07/24/2019 after she was found to be lethargic and hypoxic (SpO2 70's and 80's) by [facility] staff. On presentation -- she was tachypneic, hypothermic, and hypoglycemic with a BSG of 47 mg/dl. She was noted to have pulmonary edema on CXR and an elevated ProBNP. Patient is hyperkalemic, hyperphosphatemic, and hypermagnesemic with evidence of acute on chronic renal failure -- which is thought to be secondary to ATN related to heart failure and poor renal perfusion. -- Check Echocardiogram. -- Continue Lasix 80 mg IV q 12 hours. -- Continue Coreg 6.25 mg b.i.d.. -- Continue Digoxin 125 mcg every other day. Digoxin level is still in the therapeutic range despite acute kidney injury. -- Continue Imdur 30 mg daily. -- Closely monitor I&O's, daily body weights. -- Fluid status is being co-managed with ultrafiltration / dialysis. (2) Acute kidney injury: Patient presented hyperkalemic, hyperphosphatemic, and hypermagnesemic with evidence of acute on chronic renal failure -- which is thought to be secondary to ATN related to heart failure and poor renal perfusion. Patient had a dialysis catheter placed urgently this morning in the ICU and dialysis will be initiated momentarily. -- As per Dr. Nova. -- Monitor daily labs. (3) HTN (hypertension): BP's have been acceptable. -- Continue current regimen. (4) Presence of biventricular AICD: -- Appears to be functioning appropriately on telemetry. (5) Paroxysmal atrial fibrillation: Currently in an AV sequentially paced rhythm. -- Continue Amiodarone 200 mg daily. -- Resume Eliquis prior to discharge. (6) CAD, multiple vessel: This is quiescent, no anginal symptoms and negative troponin I levels. -- Continue medical management as outlined above. Supervising Physician Co-Signing Physician Notes Ced Gayle MD History of Present Illness Reason for Consultation: -- Acute on Chronic CHF. Requesting Physician: Avinash Mena MD Attending Physician: Ced Gayle MD History of Present Illness Mrs. Gudino is a 73 year old female with a history of Type 2 DM, Hypertension, Chronic Respiratory Failure, Anemia, Hypercholesterolemia, Paroxysmal Atrial Fibrillation, Resolved Ischemic Cardiomyopathy (20-25%, improved to 50% June 2017 following upgrade to Bi-V AICD), Congestive Heart Failure (no ACEI or ARB due to CRF), LBBB s/p Single Chamber ICD, Medtronic February 2015 with upgrade to Bi-V AICD October 2016), PAD, and CAD s/p Distal RCA Stents (with severe non intervened LAD, borderline LCx disease, April 2014) -- who was admitted to [facility] on 07/24/2019 after she was found to be lethargic and hypoxic (SpO2 70's and 80's) by [facility] staff. On presentation -- she was tachypneic, hypothermic, and hypoglycemic with a BSG of 47 mg/dl. She was noted to have pulmonary edema on CXR and an elevated ProBNP. Patient is hyperkalemic, hyperphosphatemic, and hypermagnesemic with evidence of acute on chronic renal failure -- which is thought to be secondary to ATN related to heart failure and poor renal perfusion. Patient had a dialysis catheter placed urgently this morning in the ICU and dialysis will be initiated momentarily -- with a goal of correcting her electrolyte abnormalities, and potentially taking off 500 cc of fluid if tolerated. Patient has apparently been taking some Naproxen as well -- and that is been discontinued. Patient offers no complaints at the present time. Her breathing has improved significantly since being admitted, and she has had a negative fluid balance of 1555 ml thus far. Patient denies any recent changes in her dietary salt intake or any specific triggers otherwise that would have lead to an exacerbation of her CHF. She denies any chest pain, heaviness, tightness, pressure, discomfort, or any angina pectoris. She denies any neck, jaw, back, or arm discomfort. She denies any palpitations, syncope, near syncope. She has not had any discharges from her defibrillator. Patient is currently in A-V sequentially paced rhythm. Allergies Allergy/AdvReac Type Severity Reaction Status Date / Time sulfamethoxazole AdvReac Intermediate hyperkalemi Verified 07/24/19 16:42 [From Bactrim] a trimethoprim [From Bactrim] AdvReac Intermediate hyperkalemi Verified 07/24/19 16:42 a Home Medications Home Medications Medication Instructions Recorded Confirmed Type apixaban 5 mg tablet 5 mg PO BID 02/22/18 07/24/19 History aspirin 81 mg chewable tablet 81 mg PO QAM 02/22/18 07/24/19 History carvedilol 6.25 mg tablet 6.25 mg PO BID 02/22/18 07/24/19 History cholecalciferol (vitamin D3) 50 2,000 units PO QAM 02/22/18 07/24/19 History mcg (2,000 unit) capsule digoxin 125 mcg (0.125 mg) tablet 0.125 mg PO Q2D 02/22/18 07/24/19 History ferrous sulfate 325 mg (65 mg 325 mg PO BIDM tab 02/22/18 07/24/19 History iron) tablet,delayed release insulin aspar prt-insulin aspart 35 units SQ QPM ml 02/22/18 07/24/19 History 100 unit/mL (70-30) subcutaneous soln insulin aspar prt-insulin aspart 48 units SQ QAM ml 02/22/18 07/24/19 History 100 unit/mL (70-30) subcutaneous soln insulin aspart U-100 100 unit/mL 4 units SQ QDL ml 02/22/18 07/24/19 History (3 mL) subcutaneous pen sennosides 8.6 mg-docusate sodium 1 tab PO BID 02/22/18 06/05/19 History 50 mg tablet levothyroxine 75 mcg PO QAM 08/30/18 07/24/19 History polyethylene glycol 3350 [Miralax] 17 g PO QAM 01/25/19 07/24/19 History amiodarone 200 mg tablet 200 mg PO QAM #90 tab 04/13/19 07/24/19 Rx acetaminophen 1,000 mg PO Q6H PRN MDD 3000 GMS 05/16/19 07/24/19 History /DAY isosorbide mononitrate 30 mg PO QAM 06/05/19 07/24/19 History gabapentin [Neurontin] 100 mg PO BID #0 cap 06/11/19 07/24/19 Rx trazodone 50 mg PO HS 30 Days #30 tab 06/13/19 07/24/19 Rx Insta-Glucose Application 1 applic PO DIRECTED PRN 07/24/19 07/24/19 History Lactobacillus acidoph-L.bulgar 1 tab PO TID 07/24/19 07/24/19 History [Lactinex] bisacodyl [Dulcolax (bisacodyl)] 10 mg SC DIRECTED PRN 07/24/19 07/24/19 History furosemide 20 mg PO BID 07/24/19 07/24/19 History magnesium hydroxide [Milk Of 10 ml PO DIRECTED PRN 07/24/19 07/24/19 History Magnesia Concentrated] naproxen 500 mg PO BID 07/24/19 07/24/19 History sodium phosphates [Enema] 118 ml SC DIRECTED PRN 07/24/19 07/24/19 History Patient History Medical History (Updated 07/26/19 @ 08:52 by Sabina Abel MD, PhD) A-fib (Chronic) Acquired claw toe of left foot (Acute) Acquired claw toe of right foot (Acute) Acquired hallux valgus of right foot (Acute) Anemia (Chronic) Anemia (Chronic) Atrial fibrillation (Chronic) CHF (congestive heart failure) (Chronic) CHF (congestive heart failure) (Chronic) Chronic venous insufficiency (Chronic) CKD (chronic kidney disease), stage IV Coronary artery disease (Chronic) Diabetes 1.5, 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 (Acute) Diabetic neuropathy (Chronic) DM type 2 (diabetes mellitus, type 2) (Chronic) Goals of care, counseling/discussion Hallux valgus (acquired), left foot (Acute) History of osteomyelitis (Chronic) "R third toe" History of uterine cancer (Chronic) "s/p XRT" HTN (hypertension) (Chronic) Hyperlipidemia (Chronic) Mild intellectual disability (Chronic) Pacemaker (Chronic) Type 2 diabetes mellitus with diabetic peripheral angiopathy without gangrene (Acute) Uterine cancer (Resolved) Surgical History (Updated 07/25/19 @ 11:07 by Josemanuel Prasad PA-C) History of amputation of lesser toe of right foot (Chronic) History of amputation of lesser toe of right foot (Acute) History of lumpectomy of left breast (Resolved) History of total bilateral knee replacement (Chronic) S/P cardiac pacemaker procedure (Resolved) S/P cholecystectomy (Chronic) S/P cholecystectomy (Resolved) Status post bilateral knee replacements (Resolved) Status post placement of cardiac pacemaker (Chronic) Family History Mother Pneumonia Social History Preferred Language: Czech Communication Ability: Impaired Visual Impairment: No Limitations 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: Normal Pie Crust Mixer Required: No Beliefs That Will Affect Care: None marital status: Current Living Situation: [facility] Current Living Situation Comment: House of Care Feels Safe at Home: Yes Safety Concerns: Feels Safe At This Time Smoking Status: Never smoker Second Hand Exposure: No ; Hx Alcohol Use: No Hx Substance Use: No Physical Exam Physical Exam: GENERAL: Chronically ill appearing female in no acute distress. HEENT: Head is atraumatic, normocephalic. EOM's intact. Facies symmetric. No perioral cyanosis. Mucous membranes are dry. NECK: JVP is difficult to assess -- dialysis catheter inserted in right neck, dressing in place . Carotid upstrokes are + 2 bilaterally. CHEST/LUNGS: Diminished breath sounds throughout with bibasilar crackles present. CVS: S1 and S2 are regular without murmurs, gallops, or rubs. PMI is nondisplaced. No lifts, heaves, or thrills. No abdominal aortic or renal bruits. ABDOMINAL EXAM: Bowel sounds are present. No masses, organomegaly, or tenderness. EXTREMITIES: No clubbing or cyanosis. Pigmentation changes are present in bilateral lower extremities. Trace pretibial edema. NEUROLOGIC EXAM: Patient is awake, alert, and interactive. Answers questions appropriately but slowly. TELEMETRY: -- A-V sequentially paced rhythm. EKG 07/25/2019: -- Atrial with biventricular sequentially paced rhythm. -- No acute changes. Results & Data Vital Signs (Past 12 Hours) Vital Signs Temp Pulse Pulse Resp BP BP Pulse Ox 07/25/19 07:46 60 18 998 H 07/25/19 06:31 60 14 130/56 L 100 07/25/19 05:31 60 17 116/49 L 100 07/25/19 05:23 60 20 96 07/25/19 04:31 36.3 C L 60 19 124/54 L 95 07/25/19 03:00 60 17 124/57 L 93 07/25/19 02:31 60 18 109/54 L 92 07/25/19 02:00 36.3 C L 60 16 91 07/25/19 01:31 60 17 107/57 L 93 07/25/19 01:19 63 20 96 07/25/19 00:32 60 07/25/19 00:31 35.9 C L 61 22 110/59 L 84 L 07/25/19 00:15 35.9 C L 64 24 110/59 L 95 07/24/19 23:59 63 24 103/53 L 95 07/24/19 23:45 35.8 C L 07/24/19 23:30 60 23 107/50 L 93 07/24/19 23:24 60 19 115/62 94 07/24/19 22:31 60 24 112/66 96 Laboratory Results Laboratory Results - last 24 hr 07/24/19 07/24/19 07/24/19 16:30 16:30 16:59 WBC 7.30 RBC 3.44 L Hgb 9.5 L Hct 33.0 L MCV 95.9 MCH 27.6 MCHC 28.8 L RDW Std Deviation 73.3 H RDW Coeff of Gerardo 21.5 H Plt Count 249 MPV 10.2 Immature Gran % (Auto) 0.3 Neut % (Auto) 85.0 Lymph % (Auto) 5.6 Gilmer % (Auto) 6.6 Eos % (Auto) 2.2 Baso % (Auto) 0.3 Immature Gran # (Auto) 0.02 Neut # (Auto) 6.21 Lymph # (Auto) 0.41 L Gilmer # (Auto) 0.48 Eos # (Auto) 0.16 Baso # (Auto) 0.02 Absolute Nucleated RBC 0.03 H Nucleated RBC % (auto) 0.4 Toxic Vacuolation 1+ Polychromasia Hypochromasia Basophilic Stippling Anisocytosis Present PT INR APTT PTT Ratio VBG pH VBG pCO2 VBG pO2 VBG HCO3 VBG O2 Saturation VBG Base Excess Barometric Pressure Sodium Cancelled Potassium Cancelled Chloride Cancelled Carbon Dioxide Cancelled Anion Gap Cancelled BUN Cancelled Creatinine Cancelled Est Cr Clr Drug Dosing Cancelled Est GFR ( Amer) Cancelled Est GFR (Non-Af Amer) Cancelled BUN/Creatinine Ratio Cancelled Glucose Cancelled POC Glucose Lactate Calcium Cancelled Phosphorus Magnesium Cancelled Total Bilirubin Cancelled AST Cancelled ALT Cancelled Alkaline Phosphatase Cancelled Total Creatine Kinase Troponin I Cancelled NT-Pro-B Natriuret Pep Cancelled Total Protein Cancelled Albumin Cancelled Globulin Cancelled Albumin/Globulin Ratio Cancelled Procalcitonin Urine Color Urine Appearance Urine pH Ur Specific [place] Urine Protein Urine Glucose (UA) Urine Ketones Urine Blood Urine Nitrite Urine Bilirubin Urine Urobilinogen Ur Leukocyte Esterase Nasal Screen MRSA (PCR) Digoxin 1.9 Hep Bs Antigen Hep Bs Antibody Hep Bs Antibody, Quant Hep B Core IgM Ab Influenza Type A (PCR) Influenza Type B (PCR) Blood Type Antibody Screen Crossmatch 07/24/19 07/24/19 07/24/19 16:59 16:59 18:10 WBC RBC Hgb Hct MCV MCH MCHC RDW Std Deviation RDW Coeff of Gerardo Plt Count MPV Immature Gran % (Auto) Neut % (Auto) Lymph % (Auto) [place] % (Auto) Eos % (Auto) Baso % (Auto) Immature Gran # (Auto) Neut # (Auto) Lymph # (Auto) [place] # (Auto) Eos # (Auto) Baso # (Auto) Absolute Nucleated RBC Nucleated RBC % (auto) Toxic Vacuolation Polychromasia Hypochromasia Basophilic Stippling Anisocytosis PT Cancelled INR Cancelled APTT Cancelled PTT Ratio Cancelled VBG pH VBG pCO2 VBG pO2 VBG HCO3 VBG O2 Saturation VBG Base Excess Barometric Pressure Sodium Potassium Chloride Carbon Dioxide Anion Gap BUN Creatinine Est Cr Clr Drug Dosing Est GFR ( Amer) Est GFR (Non-Af Amer) BUN/Creatinine Ratio Glucose POC Glucose Lactate 1.1 Calcium Phosphorus Magnesium Total Bilirubin AST ALT Alkaline Phosphatase Total Creatine Kinase Troponin I NT-Pro-B Natriuret Pep Total Protein Albumin Globulin Albumin/Globulin Ratio Procalcitonin Urine Color Yellow Urine Appearance Clear Urine pH 5.0 Ur Specific [place] 1.014 Urine Protein Negative Urine Glucose (UA) Negative Urine Ketones Negative Urine Blood Negative Urine Nitrite Negative Urine Bilirubin Negative Urine Urobilinogen Negative Ur Leukocyte Esterase Negative Nasal Screen MRSA (PCR) Digoxin Hep Bs Antigen Hep Bs Antibody Hep Bs Antibody, Quant Hep B Core IgM Ab Influenza Type A (PCR) Influenza Type B (PCR) Blood Type Antibody Screen Crossmatch 07/24/19 07/24/19 07/24/19 18:55 18:55 19:50 WBC RBC Hgb Hct MCV MCH MCHC RDW Std Deviation RDW Coeff of Gerardo Plt Count MPV Immature Gran % (Auto) Neut % (Auto) Lymph % (Auto) [place] % (Auto) Eos % (Auto) Baso % (Auto) Immature Gran # (Auto) Neut # (Auto) Lymph # (Auto) [place] # (Auto) Eos # (Auto) Baso # (Auto) Absolute Nucleated RBC Nucleated RBC % (auto) Toxic Vacuolation Polychromasia Hypochromasia Basophilic Stippling Anisocytosis PT 12.6 H INR 1.2 H APTT 30.5 PTT Ratio 1.1 VBG pH VBG pCO2 VBG pO2 VBG HCO3 VBG O2 Saturation VBG Base Excess Barometric Pressure Sodium 141 Potassium 6.2 H* Chloride 108 H Carbon Dioxide 30 Anion Gap 2.0 L BUN 100 H Creatinine 2.43 H Est Cr Clr Drug Dosing 25.0 Est GFR ( Amer) 21.8 Est GFR (Non-Af Amer) 18.8 BUN/Creatinine Ratio 41.2 H Glucose 47 L* POC Glucose 48 L* Lactate Calcium 8.5 Phosphorus Magnesium 3.2 H Total Bilirubin 0.6 AST 9 L ALT 12 Alkaline Phosphatase 59 Total Creatine Kinase Troponin I NT-Pro-B Natriuret Pep 2319 H Total Protein 7.4 Albumin 2.9 L Globulin 4.5 H Albumin/Globulin Ratio 0.6 L Procalcitonin Urine Color Urine Appearance Urine pH Ur Specific [place] Urine Protein Urine Glucose (UA) Urine Ketones Urine Blood Urine Nitrite Urine Bilirubin Urine Urobilinogen Ur Leukocyte Esterase Nasal Screen MRSA (PCR) Digoxin Hep Bs Antigen Hep Bs Antibody Hep Bs Antibody, Quant Hep B Core IgM Ab Influenza Type A (PCR) Influenza Type B (PCR) Blood Type Antibody Screen Crossmatch 07/24/19 07/24/19 07/24/19 20:14 20:53 21:48 WBC RBC Hgb Hct MCV MCH MCHC RDW Std Deviation RDW Coeff of Gerardo Plt Count MPV Immature Gran % (Auto) Neut % (Auto) Lymph % (Auto) [place] % (Auto) Eos % (Auto) Baso % (Auto) Immature Gran # (Auto) Neut # (Auto) Lymph # (Auto) [place] # (Auto) Eos # (Auto) Baso # (Auto) Absolute Nucleated RBC Nucleated RBC % (auto) Toxic Vacuolation Polychromasia Hypochromasia Basophilic Stippling Anisocytosis PT INR APTT PTT Ratio VBG pH VBG pCO2 VBG pO2 VBG HCO3 VBG O2 Saturation VBG Base Excess Barometric Pressure Sodium Potassium Chloride Carbon Dioxide Anion Gap BUN Creatinine Est Cr Clr Drug Dosing Est GFR ( Amer) Est GFR (Non-Af Amer) BUN/Creatinine Ratio Glucose POC Glucose 93 91 Lactate Calcium Phosphorus Magnesium Total Bilirubin AST ALT Alkaline Phosphatase Total Creatine Kinase Troponin I NT-Pro-B Natriuret Pep Total Protein Albumin Globulin Albumin/Globulin Ratio Procalcitonin Urine Color Urine Appearance Urine pH Ur Specific [place] Urine Protein Urine Glucose (UA) Urine Ketones Urine Blood Urine Nitrite Urine Bilirubin Urine Urobilinogen Ur Leukocyte Esterase Nasal Screen MRSA (PCR) Digoxin Hep Bs Antigen Hep Bs Antibody Hep Bs Antibody, Quant Hep B Core IgM Ab Influenza Type A (PCR) Influenza Type B (PCR) Blood Type A Positive Antibody Screen NEGATIVE Crossmatch See Detail 07/24/19 07/25/19 07/25/19 23:44 00:52 00:52 WBC RBC Hgb 8.6 L Hct 30.5 L MCV MCH MCHC RDW Std Deviation RDW Coeff of Gerardo Plt Count MPV Immature Gran % (Auto) Neut % (Auto) Lymph % (Auto) [place] % (Auto) Eos % (Auto) Baso % (Auto) Immature Gran # (Auto) Neut # (Auto) Lymph # (Auto) [place] # (Auto) Eos # (Auto) Baso # (Auto) Absolute Nucleated RBC Nucleated RBC % (auto) Toxic Vacuolation Polychromasia Hypochromasia Basophilic Stippling Anisocytosis PT INR APTT PTT Ratio VBG pH VBG pCO2 VBG pO2 VBG HCO3 VBG O2 Saturation VBG Base Excess Barometric Pressure Sodium 141 Potassium 6.0 H Chloride 108 H Carbon Dioxide 31 Anion Gap 2.0 L BUN 103 H Creatinine 2.38 H Est Cr Clr Drug Dosing 25.0 Est GFR ( Amer) 22.4 Est GFR (Non-Af Amer) 19.3 BUN/Creatinine Ratio 43.4 H Glucose 56 L POC Glucose 142 H Lactate Calcium 8.7 Phosphorus 5.8 H Magnesium 3.1 H Total Bilirubin AST ALT Alkaline Phosphatase Total Creatine Kinase 44 Troponin I < 0.015 NT-Pro-B Natriuret Pep Total Protein Albumin Globulin Albumin/Globulin Ratio Procalcitonin Urine Color Urine Appearance Urine pH Ur Specific [place] Urine Protein Urine Glucose (UA) Urine Ketones Urine Blood Urine Nitrite Urine Bilirubin Urine Urobilinogen Ur Leukocyte Esterase Nasal Screen MRSA (PCR) Digoxin Hep Bs Antigen Hep Bs Antibody Hep Bs Antibody, Quant Hep B Core IgM Ab Influenza Type A (PCR) Influenza Type B (PCR) Blood Type Antibody Screen Crossmatch 07/25/19 07/25/19 07/25/19 00:52 01:07 02:04 WBC RBC Hgb Hct MCV MCH MCHC RDW Std Deviation RDW Coeff of Gerardo Plt Count MPV Immature Gran % (Auto) Neut % (Auto) Lymph % (Auto) [place] % (Auto) Eos % (Auto) Baso % (Auto) Immature Gran # (Auto) Neut # (Auto) Lymph # (Auto) [place] # (Auto) Eos # (Auto) Baso # (Auto) Absolute Nucleated RBC Nucleated RBC % (auto) Toxic Vacuolation Polychromasia Hypochromasia Basophilic Stippling Anisocytosis PT INR APTT PTT Ratio VBG pH 7.28 L VBG pCO2 67 H VBG pO2 32 VBG HCO3 31 VBG O2 Saturation < 60.0 VBG Base Excess 2.6 Barometric Pressure 732.1 Sodium Potassium Chloride Carbon Dioxide Anion Gap BUN Creatinine Est Cr Clr Drug Dosing Est GFR ( Amer) Est GFR (Non-Af Amer) BUN/Creatinine Ratio Glucose POC Glucose 72 79 Lactate Calcium Phosphorus Magnesium Total Bilirubin AST ALT Alkaline Phosphatase Total Creatine Kinase Troponin I NT-Pro-B Natriuret Pep Total Protein Albumin Globulin Albumin/Globulin Ratio Procalcitonin Urine Color Urine Appearance Urine pH Ur Specific [place] Urine Protein Urine Glucose (UA) Urine Ketones Urine Blood Urine Nitrite Urine Bilirubin Urine Urobilinogen Ur Leukocyte Esterase Nasal Screen MRSA (PCR) Digoxin Hep Bs Antigen Hep Bs Antibody Hep Bs Antibody, Quant Hep B Core IgM Ab Influenza Type A (PCR) Influenza Type B (PCR) Blood Type Antibody Screen Crossmatch 07/25/19 07/25/19 07/25/19 02:59 03:00 03:34 WBC RBC Hgb Hct MCV MCH MCHC RDW Std Deviation RDW Coeff of Gerardo Plt Count MPV Immature Gran % (Auto) Neut % (Auto) Lymph % (Auto) [place] % (Auto) Eos % (Auto) Baso % (Auto) Immature Gran # (Auto) Neut # (Auto) Lymph # (Auto) [place] # (Auto) Eos # (Auto) Baso # (Auto) Absolute Nucleated RBC Nucleated RBC % (auto) Toxic Vacuolation Polychromasia Hypochromasia Basophilic Stippling Anisocytosis PT INR APTT PTT Ratio VBG pH VBG pCO2 VBG pO2 VBG HCO3 VBG O2 Saturation VBG Base Excess Barometric Pressure Sodium Potassium Chloride Carbon Dioxide Anion Gap BUN Creatinine Est Cr Clr Drug Dosing Est GFR ( Amer) Est GFR (Non-Af Amer) BUN/Creatinine Ratio Glucose POC Glucose 62 L* 64 L* 107 H Lactate Calcium Phosphorus Magnesium Total Bilirubin AST ALT Alkaline Phosphatase Total Creatine Kinase Troponin I NT-Pro-B Natriuret Pep Total Protein Albumin Globulin Albumin/Globulin Ratio Procalcitonin Urine Color Urine Appearance Urine pH Ur Specific [place] Urine Protein Urine Glucose (UA) Urine Ketones Urine Blood Urine Nitrite Urine Bilirubin Urine Urobilinogen Ur Leukocyte Esterase Nasal Screen MRSA (PCR) Digoxin Hep Bs Antigen Hep Bs Antibody Hep Bs Antibody, Quant Hep B Core IgM Ab Influenza Type A (PCR) Influenza Type B (PCR) Blood Type Antibody Screen Crossmatch 07/25/19 07/25/19 07/25/19 04:05 04:05 04:05 WBC 6.98 RBC 3.13 L Hgb 8.3 L Hct 30.0 L MCV 95.8 MCH 26.5 MCHC 27.7 L RDW Std Deviation 72.3 H RDW Coeff of Gerardo 21.3 H Plt Count 191 MPV 8.7 Immature Gran % (Auto) 0.1 Neut % (Auto) 81.4 Lymph % (Auto) 7.0 [place] % (Auto) 8.3 Eos % (Auto) 2.9 Baso % (Auto) 0.3 Immature Gran # (Auto) 0.01 Neut # (Auto) 5.68 Lymph # (Auto) 0.49 L [place] # (Auto) 0.58 Eos # (Auto) 0.20 Baso # (Auto) 0.02 Absolute Nucleated RBC Nucleated RBC % (auto) Toxic Vacuolation Polychromasia 1+ Hypochromasia Present Basophilic Stippling Occasional Anisocytosis Present PT INR APTT PTT Ratio VBG pH VBG pCO2 VBG pO2 VBG HCO3 VBG O2 Saturation VBG Base Excess Barometric Pressure Sodium 142 Potassium 6.6 H* Chloride 109 H Carbon Dioxide 31 Anion Gap 1.0 L BUN 100 H Creatinine 2.40 H Est Cr Clr Drug Dosing 24.8 Est GFR ( Amer) 22.1 Est GFR (Non-Af Amer) 19.1 BUN/Creatinine Ratio 41.7 H Glucose 82 POC Glucose Lactate Calcium 8.7 Phosphorus 5.7 H Magnesium 3.0 H Total Bilirubin AST ALT Alkaline Phosphatase Total Creatine Kinase Troponin I NT-Pro-B Natriuret Pep Total Protein Albumin Globulin Albumin/Globulin Ratio Procalcitonin 0.21 Urine Color Urine Appearance Urine pH Ur Specific [place] Urine Protein Urine Glucose (UA) Urine Ketones Urine Blood Urine Nitrite Urine Bilirubin Urine Urobilinogen Ur Leukocyte Esterase Nasal Screen MRSA (PCR) Digoxin Hep Bs Antigen Hep Bs Antibody Hep Bs Antibody, Quant Hep B Core IgM Ab Influenza Type A (PCR) Influenza Type B (PCR) Blood Type Antibody Screen Crossmatch 07/25/19 07/25/19 07/25/19 04:05 04:05 04:05 WBC RBC Hgb Hct MCV MCH MCHC RDW Std Deviation RDW Coeff of Gerardo Plt Count MPV Immature Gran % (Auto) Neut % (Auto) Lymph % (Auto) [place] % (Auto) Eos % (Auto) Baso % (Auto) Immature Gran # (Auto) Neut # (Auto) Lymph # (Auto) [place] # (Auto) Eos # (Auto) Baso # (Auto) Absolute Nucleated RBC Nucleated RBC % (auto) Toxic Vacuolation Polychromasia Hypochromasia Basophilic Stippling Anisocytosis PT INR APTT PTT Ratio VBG pH 7.29 L VBG pCO2 65 H VBG pO2 37 VBG HCO3 30 VBG O2 Saturation < 60.0 VBG Base Excess 2.8 Barometric Pressure 732.6 Sodium Potassium Chloride Carbon Dioxide Anion Gap BUN Creatinine Est Cr Clr Drug Dosing Est GFR ( Amer) Est GFR (Non-Af Amer) BUN/Creatinine Ratio Glucose POC Glucose Lactate Calcium Phosphorus Magnesium Total Bilirubin AST ALT Alkaline Phosphatase Total Creatine Kinase Troponin I NT-Pro-B Natriuret Pep Total Protein Albumin Globulin Albumin/Globulin Ratio Procalcitonin Urine Color Urine Appearance Urine pH Ur Specific [place] Urine Protein Urine Glucose (UA) Urine Ketones Urine Blood Urine Nitrite Urine Bilirubin Urine Urobilinogen Ur Leukocyte Esterase Nasal Screen MRSA (PCR) Digoxin Hep Bs Antigen Neg Hep Bs Antibody Non-Immune Hep Bs Antibody, Quant 3.41 L Hep B Core IgM Ab Pending Influenza Type A (PCR) Influenza Type B (PCR) Blood Type Antibody Screen Crossmatch 07/25/19 07/25/19 07/25/19 06:02 06:20 08:47 WBC RBC Hgb Hct MCV MCH MCHC RDW Std Deviation RDW Coeff of Gerardo Plt Count MPV Immature Gran % (Auto) Neut % (Auto) Lymph % (Auto) [place] % (Auto) Eos % (Auto) Baso % (Auto) Immature Gran # (Auto) Neut # (Auto) Lymph # (Auto) [place] # (Auto) Eos # (Auto) Baso # (Auto) Absolute Nucleated RBC Nucleated RBC % (auto) Toxic Vacuolation Polychromasia Hypochromasia Basophilic Stippling Anisocytosis PT INR APTT PTT Ratio VBG pH VBG pCO2 VBG pO2 VBG HCO3 VBG O2 Saturation VBG Base Excess Barometric Pressure Sodium Potassium Chloride Carbon Dioxide Anion Gap BUN Creatinine Est Cr Clr Drug Dosing Est GFR ( Amer) Est GFR (Non-Af Amer) BUN/Creatinine Ratio Glucose POC Glucose 183 H 95 Lactate Calcium Phosphorus Magnesium Total Bilirubin AST ALT Alkaline Phosphatase Total Creatine Kinase Troponin I NT-Pro-B Natriuret Pep Total Protein Albumin Globulin Albumin/Globulin Ratio Procalcitonin Urine Color Urine Appearance Urine pH Ur Specific [place] Urine Protein Urine Glucose (UA) Urine Ketones Urine Blood Urine Nitrite Urine Bilirubin Urine Urobilinogen Ur Leukocyte Esterase Nasal Screen MRSA (PCR) Digoxin Hep Bs Antigen Hep Bs Antibody Hep Bs Antibody, Quant Hep B Core IgM Ab Influenza Type A (PCR) Neg for Influ A Influenza Type B (PCR) Neg for Influ B Blood Type Antibody Screen Crossmatch 07/25/19 Unknown WBC RBC Hgb Hct MCV MCH MCHC RDW Std Deviation RDW Coeff of Gerardo Plt Count MPV Immature Gran % (Auto) Neut % (Auto) Lymph % (Auto) [place] % (Auto) Eos % (Auto) Baso % (Auto) Immature Gran # (Auto) Neut # (Auto) Lymph # (Auto) [place] # (Auto) Eos # (Auto) Baso # (Auto) Absolute Nucleated RBC Nucleated RBC % (auto) Toxic Vacuolation Polychromasia Hypochromasia Basophilic Stippling Anisocytosis PT INR APTT PTT Ratio VBG pH VBG pCO2 VBG pO2 VBG HCO3 VBG O2 Saturation VBG Base Excess Barometric Pressure Sodium Potassium Chloride Carbon Dioxide Anion Gap BUN Creatinine Est Cr Clr Drug Dosing Est GFR ( Amer) Est GFR (Non-Af Amer) BUN/Creatinine Ratio Glucose POC Glucose Lactate Calcium Phosphorus Magnesium Total Bilirubin AST ALT Alkaline Phosphatase Total Creatine Kinase Troponin I NT-Pro-B Natriuret Pep Total Protein Albumin Globulin Albumin/Globulin Ratio Procalcitonin Urine Color Urine Appearance Urine pH Ur Specific [place] Urine Protein Urine Glucose (UA) Urine Ketones Urine Blood Urine Nitrite Urine Bilirubin Urine Urobilinogen Ur Leukocyte Esterase Nasal Screen MRSA (PCR) Negative Digoxin Hep Bs Antigen Hep Bs Antibody Hep Bs Antibody, Quant Hep B Core IgM Ab Influenza Type A (PCR) Influenza Type B (PCR) Blood Type Antibody Screen Crossmatch Medications Administered Active Medications Generic Name Dose Route Start Last Admin Trade Name Freq PRN Reason Stop Dose Admin Amiodarone HCl 200 mg 07/25/19 09:00 07/25/19 08:32 Cordarone PO 08/24/19 08:59 200 mg QAM DILLON Administration Bisacodyl 10 mg 07/25/19 00:32 Dulcolax SC 08/24/19 00:31 UD PRN Constipation Carvedilol 6.25 mg 07/25/19 09:00 07/25/19 08:31 Coreg PO 08/24/19 08:59 6.25 mg BID DILLON Administration Dextrose 25 - 50 ml 07/25/19 03:05 Dextrose 50% IV 08/24/19 03:04 UD PRN Hypoglycemia Protocol Protocol Digoxin 0.125 mg 07/26/19 16:00 Lanoxin PO 08/25/19 15:59 Q48H DILLON Docusate Sodium 100 mg 07/25/19 21:00 Colace PO 08/24/19 20:59 HS DILLON Ferrous Sulfate 325 mg 07/25/19 08:00 07/25/19 08:32 Feosol PO 08/24/19 07:59 325 mg BIDM DILLON Administration Gabapentin 100 mg 07/25/19 09:00 07/25/19 10:02 Neurontin PO 08/24/19 08:59 Not Given BID DILLON Glucagon 1 mg 07/25/19 03:05 Glucagen SQ 08/24/19 03:04 UD PRN Hypoglycemia Protocol Protocol Glucose 4 - 8 tabs 07/25/19 03:05 Dex4 Glucose PO 08/24/19 03:04 UD PRN Hypoglycemia Protocol Protocol Glucose 15 - 30 gm 07/25/19 03:05 Glucose 40% PO 08/24/19 03:04 UD PRN Hypoglycemia Protocol Protocol Furosemide 80 mg/ Syringe 8 mls @ 4 mls/min 07/25/19 18:00 IV 08/24/19 17:59 Q12H DILLON Sodium Chloride 1,000 mls @ 0 mls/hr 07/25/19 08:40 Nss 1000ml IV 07/25/19 14:39 .Q0M PRN For Hemodialysis Use ONLY Per Protocol Dextrose/Sodium Chloride 1,000 mls @ 40 mls/hr 07/25/19 10:15 D5w And 1/2nss IV 08/24/19 10:14 .Q24H DILLON Insulin Aspart 0 units 07/25/19 06:00 07/25/19 06:06 Novolog Flexpen SC 08/24/19 05:59 Not Given Q6 DILLON Isosorbide Mononitrate 30 mg 07/25/19 09:00 07/25/19 08:33 Imdur Extended Rel PO 08/24/19 08:59 30 mg QAM DILLON Administration Lactobacillus Acidophilus 4 tab 07/25/19 09:00 07/25/19 08:33 Floranex PO 08/24/19 08:59 4 tab TID DILLON Administration Levothyroxine Sodium 75 mcg 07/25/19 06:30 07/25/19 05:26 Synthroid PO 08/24/19 06:29 Not Given DAILYBB DILLON Miscellaneous 1 ea 07/25/19 00:32 Icu Protocol For Hyperglycemia N/A 07/27/19 00:31 PRN PRN Hyperglycemia Protocol Protocol Miscellaneous 15 - 30 gm 07/25/19 03:05 Carbohydrates For Hypoglycemia PO 08/24/19 03:04 UD PRN Hypoglycemia Protocol Nystatin 1 appln 07/25/19 09:00 07/25/19 08:33 Mycostatin EXT 08/24/19 08:59 1 appln TID DILLON Administration Polyethylene Glycol 17 gm 07/25/19 09:00 07/25/19 08:33 Miralax Powder Packet PO 08/24/19 08:59 17 gm QAM DILLON Administration PG Care Time/CCT Total # of Minutes Spent Total Time Spent with Patient: Total time spent is greater than 50% in coordination of care (as documented) at patient's floor/unit and/or counseling patient: Coding Level of Care Code 56595 Initial Inpt Care Lvl 3 Diagnoses CHF (congestive heart failure) I50.9 Heart failure chronicity: unspecified Heart failure type: unspecified Acute kidney injury N17.9 HTN (hypertension) I10 Hypertension type: essential hypertension Presence of biventricular AICD Z95.810 Paroxysmal atrial fibrillation I48.0 CAD, multiple vessel I25.10 (1) CHF (congestive heart failure) Heart failure chronicity: unspecified Heart failure type: unspecified Qualified Code(s): I50.9 - Heart failure, unspecified (2) HTN (hypertension) Hypertension type: essential hypertension Qualified Code(s): I10 - Essential (primary) hypertension
[2019-07-25 11:47] LABS: iSTAT Hemoglobin 9.5 g/dl (12.0-16.0); iSTAT Potassium 6.4 mmol/L (3.3-5.0); iSTAT Sodium 140 mmol/L (135-144)
[2019-07-25 11:48] LABS: Patient Temperature 36.3; iSTAT Arterial Blood Gas HCO3 31 meg/L (19-24); iSTAT Arterial Blood Gas pCO2 54 mmHg (35-46); iSTAT Arterial Blood Gas pH 7.37 (7.35-7.45); iSTAT Arterial Blood Gas pO2 31 mmHg (80-95); iSTAT Carbon Dioxide 33 mmol/L (24-31); iSTAT Hematocrit 28 % (37-47)
[2019-07-25 11:49] LABS: iSTAT Allen Test Acceptable; iSTAT Art Bld Gas pCO2 Correct 52 mmHg (35-46); iSTAT Art Bld Gas pH Corrected 7.381 (7.35-7.45); iSTAT Arterial Blood Gas pO2 C 63; iSTAT Sample Type Arterial
[2019-07-25 11:50] LABS: iSTAT Site L Radial
[2019-07-25 11:51] LABS: iSTAT SpO2 97
--- NOTE | 2019-07-25 12:10 | XCELERA ---
[id number] \\[id number]
--- NOTE | 2019-07-25 12:40 | Gastrointestinal Consultation ---
Date of Consultation July 25, 2019 Assessment & Plan (1) Anemia: Ms. Allyn Gudino is a 73 yr old female with normalcytic anemia and black stools on po iron. Her Hb of 8.3 is decreased compared to March 2019 when it was approx 10. She did received two units of RBCs in May and has been stable after that transfusion. She is at risk for GI bleeding due to acute illness, anti-platlet and NSAID use. Consider stopping NSAIDs. If any evidence of gross GI bleeding then would consid er holding ASA, apixiban. Would defer EGD at this time due to multiple co-morbidies though would reconsider if gross GI bleed and drop in Hb/Hct. Present on Admission?: Yes Supervising Physician Co-Signing Physician Notes Attending attestation I have seen, examined this patient, and agree with the findings and above by our mid-level provider ANGELA Cruz, with the following additions Patient admitted with shortness of breath and a respiratory insufficiency with likely heart failure exacerbation as well as hyperkalemia necessitating acute dialysis. She apparently had a black bowel movement that was heme positive, yesterday, hemoglobin is very stable as well as blood count and and hemodynamics. Today she is had no bowel movements, even with MiraLAX, vital signs are stable and she is needing BiPAP to maintain saturations. Clearly this is not evidence of an acute upper GI bleed, she would not be a candidate unless she would almost be intubated for the procedure which she has advanced directives stating that she does not want to have. Palliative care is now seeing her and they are going to discuss long-term plans, she does have a mental intellectual difficulties, and sons are available for discussion of long-term care. Would recommend twice daily PPI, orally is okay. GI will sign off given lack of acute GI issues and chronic as well as acute issues that are more pressing at this time. Call with questions History of Present Illness Reason for Consultation: black stool, heme positive Requesting Physician: Dr. Pride Attending Physician: Avinash Mena MD History of Present Illness Ms. Allyn Gudino is a 73 yr old female pt of Dr. Lola Jean with a hx of CKD- 4, DM-2, chronic venous insufficiency, diabetic ulcers, ischemic cardiomyopathy, CHF, A-fib with pacemaker, on O2 at 2L/min at home who was transferred from [facility] to the ED yesterday afternoon for SOB. She is being treat for respiratory decompensation (on BIPAP) and acute on chronic renal failure (receiving initial dialysis for hyperkalemia). GI is consulted for hem positive black BMs. REgarding her risks for GI bleeding, she is maintained on ASA 81mg daily, apixaban and her med list states that she is also given naproxen 500mg BID, all as an OP. She is also on a po iron supplement. She is seen and examined while she is in the ICU, initially while undergoing dialysis then seen again after. Hb was 9.5 on arrival -> 8.3 this morning. Her baseline appears to be approx 8.5. She is receiving O2 at FiO2 at 30% delivered by BiPAP, O2 sat is 88%. She is on a Protonix drip. Nursing tells me that she has not had any gross GI bleeding. The critical care consult was reviewed. In that document is mention of hem (+) black BMs during recent hospitalizations. She is awake and does not indicate any abdominal pain. Allergies Allergy/AdvReac Type Severity Reaction Status Date / Time sulfamethoxazole AdvReac Intermediate hyperkalemi Verified 07/24/19 16:42 [From Bactrim] a trimethoprim [From Bactrim] AdvReac Intermediate hyperkalemi Verified 07/24/19 16:42 a Home Medications Home Medications Medication Instructions Recorded Confirmed Type apixaban 5 mg tablet 5 mg PO BID 02/22/18 07/24/19 History aspirin 81 mg chewable tablet 81 mg PO QAM 02/22/18 07/24/19 History carvedilol 6.25 mg tablet 6.25 mg PO BID 02/22/18 07/24/19 History cholecalciferol (vitamin D3) 50 2,000 units PO QAM 02/22/18 07/24/19 History mcg (2,000 unit) capsule digoxin 125 mcg (0.125 mg) tablet 0.125 mg PO Q2D 02/22/18 07/24/19 History ferrous sulfate 325 mg (65 mg 325 mg PO BIDM tab 02/22/18 07/24/19 History iron) tablet,delayed release insulin aspar prt-insulin aspart 35 units SQ QPM ml 02/22/18 07/24/19 History 100 unit/mL (70-30) subcutaneous soln insulin aspar prt-insulin aspart 48 units SQ QAM ml 02/22/18 07/24/19 History 100 unit/mL (70-30) subcutaneous soln insulin aspart U-100 100 unit/mL 4 units SQ QDL ml 02/22/18 07/24/19 History (3 mL) subcutaneous pen sennosides 8.6 mg-docusate sodium 1 tab PO BID 02/22/18 06/05/19 History 50 mg tablet levothyroxine 75 mcg PO QAM 08/30/18 07/24/19 History polyethylene glycol 3350 [Miralax] 17 g PO QAM 01/25/19 07/24/19 History amiodarone 200 mg tablet 200 mg PO QAM #90 tab 04/13/19 07/24/19 Rx acetaminophen 1,000 mg PO Q6H PRN MDD 3000 GMS 05/16/19 07/24/19 History /DAY isosorbide mononitrate 30 mg PO QAM 06/05/19 07/24/19 History gabapentin [Neurontin] 100 mg PO BID #0 cap 06/11/19 07/24/19 Rx trazodone 50 mg PO HS 30 Days #30 tab 06/13/19 07/24/19 Rx Insta-Glucose Application 1 applic PO DIRECTED PRN 07/24/19 07/24/19 History Lactobacillus acidoph-L.bulgar 1 tab PO TID 07/24/19 07/24/19 History [Lactinex] bisacodyl [Dulcolax (bisacodyl)] 10 mg CA DIRECTED PRN 07/24/19 07/24/19 History furosemide 20 mg PO BID 07/24/19 07/24/19 History magnesium hydroxide [Milk Of 10 ml PO DIRECTED PRN 07/24/19 07/24/19 History Magnesia Concentrated] naproxen 500 mg PO BID 07/24/19 07/24/19 History sodium phosphates [Enema] 118 ml CA DIRECTED PRN 07/24/19 07/24/19 History Patient History Medical History A-fib (Chronic) Acquired claw toe of left foot (Acute) Acquired claw toe of right foot (Acute) Acquired hallux valgus of right foot (Acute) Anemia (Chronic) Anemia (Chronic) Atrial fibrillation (Chronic) CHF (congestive heart failure) (Chronic) CHF (congestive heart failure) (Chronic) Chronic venous insufficiency (Chronic) CKD (chronic kidney disease), stage IV Coronary artery disease (Chronic) Diabetes 1.5, 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 (Acute) Diabetic neuropathy (Chronic) DM type 2 (diabetes mellitus, type 2) (Chronic) Hallux valgus (acquired), left foot (Acute) History of osteomyelitis (Chronic) "R third toe" History of uterine cancer (Chronic) "s/p XRT" HTN (hypertension) (Chronic) Hyperlipidemia (Chronic) Mild intellectual disability (Chronic) Pacemaker (Chronic) Type 2 diabetes mellitus with diabetic peripheral angiopathy without gangrene (Acute) Uterine cancer (Resolved) Surgical History History of amputation of lesser toe of right foot (Chronic) History of amputation of lesser toe of right foot (Acute) History of lumpectomy of left breast (Resolved) History of total bilateral knee replacement (Chronic) S/P cardiac pacemaker procedure (Resolved) S/P cholecystectomy (Chronic) S/P cholecystectomy (Resolved) Status post bilateral knee replacements (Resolved) Status post placement of cardiac pacemaker (Chronic) Family History Mother Pneumonia Social History Preferred Language: Lao Communication Ability: Impaired Visual Impairment: No Limitations 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: Normal [employer] Required: No Beliefs That Will Affect Care: None marital status: Current Living Situation: Residential Current Living Situation Comment: House of Care Feels Safe at Home: Yes Safety Concerns: Feels Safe At This Time Smoking Status: Never smoker Second Hand Exposure: No ; Hx Alcohol Use: No Hx Substance Use: No Review of Systems Review of Systems: Unable to obtain full ROS from pt while on BIPAP. Denies abdominal pain Physical Exam Constitutional: + obese Hypotensive at 109/55. Eyes: PERRL, conjunctivae normal, anicteric sclerae Neck: trachea midline, no thyromegaly Respiratory: + labored breathing (mildly) Auscultation: + diminished lung sounds (at both bases) Cardiovascular: RRR, no murmur, no edema Gastrointestinal (Abdomen): Inspection/Auscultation: + abdomen distended (mildly; obese); no abdominal edema Percussion/Palpation: abdomen soft; abdomen nontender Skin: no jaundice and no pallor Neurologic: PERRL, EOMI, accommodation nl, no face palsy, no dysarthria Psychiatric: Orientation: alert and cooperative Eye Contact: good eye contact Motor Behavior: n tremor Lymphatic: no cervical or axillary lymphadenopathy Results & Data Vital Signs (Past 12 Hours) Vital Signs Temp Pulse Pulse Resp BP BP Pulse Ox 07/25/19 11:39 60 109/55 L 07/25/19 11:19 60 18 107/51 L 88 L 07/25/19 11:17 60 14 104/54 L 96 07/25/19 11:15 60 104/54 L 07/25/19 11:06 60 19 94 07/25/19 11:04 60 20 101/47 L 93 07/25/19 11:02 75 19 102/66 93 07/25/19 11:00 60 102/66 07/25/19 10:49 60 18 84/44 L 97 07/25/19 10:45 60 84/44 L 07/25/19 10:34 60 17 112/55 L 100 07/25/19 10:32 60 12 123/57 L 99 07/25/19 10:30 60 112/55 L 07/25/19 10:19 36.4 C L 61 60 19 128/73 97 07/25/19 09:31 61 19 116/53 L 96 07/25/19 08:35 36.4 C L 07/25/19 08:31 60 18 130/60 96 07/25/19 08:00 60 07/25/19 07:46 60 18 98 07/25/19 07:31 60 15 127/60 100 07/25/19 06:31 60 14 130/56 L 100 07/25/19 05:31 60 17 116/49 L 100 07/25/19 05:23 60 20 96 07/25/19 04:31 36.3 C L 60 19 124/54 L 95 07/25/19 03:00 60 17 124/57 L 93 07/25/19 02:31 60 18 109/54 L 92 07/25/19 02:00 36.3 C L 60 16 91 07/25/19 01:31 60 17 107/57 L 93 07/25/19 01:19 63 20 96 07/25/19 00:32 60 07/25/19 00:31 35.9 C L 61 22 110/59 L 84 L 07/25/19 00:15 35.9 C L 64 24 110/59 L 95 (1) Anemia Anemia type: due to chronic kidney disease Chronic kidney disease stage: stage 4 (severe) Qualified Code(s): N18.4 - Chronic kidney disease, stage 4 (severe); D63.1 - Anemia in chronic kidney disease
--- NOTE | 2019-07-25 15:29 | Palliative Care Consultation ---
Date of Consultation July 25, 2019 Assessment & Plan (1) Goals of care, counseling/discussion: -73 year old female patient with PMH coronary artery disease status post PTCI with MIL placement, A. fib currently on amiodarone, digoxin, and Eliquis with AICD placement, hypertension, hyperlipidemia, peripheral vascular disease, CHF, chronic respiratory failure, anemia, CKD 4, diabetes, and recurrent venous stasis ulcers with peripheral vascular disease, presented to the hospital last evening from [facility] with c/o altered mental status, hypoxia, and hypoglycemia. Patient was placed on bipap in ED. CXR showed signs of volume overload, she was given IV Lasix. Patient's potassium has continued to rise despite the Lasix and insulin/dextrose. Patient is nonoliguric, but again she fluid overloaded and the potassium continues to rise. Patient underwent temporary dialysis catheter placement and first dialysis treatment this morning. Patient had positive fecal occult blood test, GI is consulted. Upon admission to ICU, code status was discussed with patient. She was oriented at the time and stated that she did not want mechanical ventilation, but did want CPR and full treatment otherwise. Patient has a POLST form that also states she does want CPR, as well as limited additional interventions, abx for infection, and no artificial hydration/nutrition. Palliative care is consulted to discuss goals of care. -Patient was discussed in ICU rounds this morning. I met with her along with Dr. Smyth in room 103 this afternoon. She is on oxymask alternating with bipap. She is rather lethargic/drowsy. Did state that she is in the hospital due to her breathing problems. -Attempted to discuss dialysis-- whether it would be long-term or short-term is unknown, would this be acceptable to her to continue senior living. Patient was not fully able to understand the conversation or give feed back. -Asked about code status. Again, patient could tell me the risks and benefits of procedures such as CPR or intubation, or tell me what would happen if she did not have these measures. At this time, I don't think she is able to make medical decisions on her own. -At patient's baseline, she does have some intellectual disability, but she is able to make her own decisions. Patient lives at the [facility] and tells me that she is wheelchair bound. She also has a son, Aime, who is her POA. -At this time, I will not make any changes to patient's code status. Her current conditional code does coincide with the POLST form that she just completed on 07/01/2019. Tomorrow, I will attempt to speak with patient again, hopefully she will be more alert. I will also speak with her son Aime regarding goals. -Full treatment continues in the ICU for now. (2) Acute renal failure superimposed on stage 4 chronic kidney disease: Acute renal failure type: unspecified Qualified Code(s): N17.9 - Acute kidney failure, unspecified; N18.4 - Chronic kidney disease, stage 4 (severe) (3) Hyperkalemia: (4) Paroxysmal atrial fibrillation: History of Present Illness Attending Physician: Avinash Mena MD History of Present Illness This 73 year old female patient with PMH coronary artery disease status post PTCI with MIL placement, A. fib currently on amiodarone, digoxin, and Eliquis with AICD placement, hypertension, hyperlipidemia, peripheral vascular disease, CHF, chronic respiratory failure, anemia, CKD 4, diabetes, and recurrent venous stasis ulcers with peripheral vascular disease, presented to the hospital last evening from [facility] with c/o altered mental status, hypoxia, and hypoglycemia. Patient was placed on bipap in ED. CXR showed signs of volume overload, she was given IV Lasix. Patient's potassium has continued to rise despite the Lasix and insulin/dextrose. Patient is nonoliguric, but again she fluid overloaded and the potassium continues to rise. Patient underwent temporary dialysis catheter placement and first dialysis treatment this morning. Patient had positive fecal occult blood test, GI is consulted. Upon admission to ICU, code status was discussed with patient. She was oriented at the time and stated that she did not want mechanical ventilation, but did want CPR and full treatment otherwise. Patient has a POLST form that also states she does want CPR, as well as limited additional interventions, abx for infection, and no artificial hydration/nutrition. Palliative care is consulted to discuss goals of care. Thank you kindly for this consult. Palliative care team will follow as needed. Allergies Allergy/AdvReac Type Severity Reaction Status Date / Time sulfamethoxazole AdvReac Intermediate hyperkalemi Verified 07/24/19 16:42 [From Bactrim] a trimethoprim [From Bactrim] AdvReac Intermediate hyperkalemi Verified 07/24/19 16:42 a Home Medications Home Medications Medication Instructions Recorded Confirmed Type apixaban 5 mg tablet 5 mg PO BID 02/22/18 07/24/19 History aspirin 81 mg chewable tablet 81 mg PO QAM 02/22/18 07/24/19 History carvedilol 6.25 mg tablet 6.25 mg PO BID 02/22/18 07/24/19 History cholecalciferol (vitamin D3) 50 2,000 units PO QAM 02/22/18 07/24/19 History mcg (2,000 unit) capsule digoxin 125 mcg (0.125 mg) tablet 0.125 mg PO Q2D 02/22/18 07/24/19 History ferrous sulfate 325 mg (65 mg 325 mg PO BIDM tab 02/22/18 07/24/19 History iron) tablet,delayed release insulin aspar prt-insulin aspart 35 units SQ QPM ml 02/22/18 07/24/19 History 100 unit/mL (70-30) subcutaneous soln insulin aspar prt-insulin aspart 48 units SQ QAM ml 02/22/18 07/24/19 History 100 unit/mL (70-30) subcutaneous soln insulin aspart U-100 100 unit/mL 4 units SQ QDL ml 02/22/18 07/24/19 History (3 mL) subcutaneous pen sennosides 8.6 mg-docusate sodium 1 tab PO BID 02/22/18 06/05/19 History 50 mg tablet levothyroxine 75 mcg PO QAM 08/30/18 07/24/19 History polyethylene glycol 3350 [Miralax] 17 g PO QAM 01/25/19 07/24/19 History amiodarone 200 mg tablet 200 mg PO QAM #90 tab 04/13/19 07/24/19 Rx acetaminophen 1,000 mg PO Q6H PRN MDD 3000 GMS 05/16/19 07/24/19 History /DAY isosorbide mononitrate 30 mg PO QAM 06/05/19 07/24/19 History gabapentin [Neurontin] 100 mg PO BID #0 cap 06/11/19 07/24/19 Rx trazodone 50 mg PO HS 30 Days #30 tab 06/13/19 07/24/19 Rx Insta-Glucose Application 1 applic PO DIRECTED PRN 07/24/19 07/24/19 History Lactobacillus acidoph-L.bulgar 1 tab PO TID 07/24/19 07/24/19 History [Lactinex] bisacodyl [Dulcolax (bisacodyl)] 10 mg [place] DIRECTED PRN 07/24/19 07/24/19 History furosemide 20 mg PO BID 07/24/19 07/24/19 History magnesium hydroxide [Milk Of 10 ml PO DIRECTED PRN 07/24/19 07/24/19 History Magnesia Concentrated] naproxen 500 mg PO BID 07/24/19 07/24/19 History sodium phosphates [Enema] 118 ml [place] DIRECTED PRN 07/24/19 07/24/19 History Patient History Medical History A-fib (Chronic) Acquired claw toe of left foot (Acute) Acquired claw toe of right foot (Acute) Acquired hallux valgus of right foot (Acute) Anemia (Chronic) Anemia (Chronic) Atrial fibrillation (Chronic) CHF (congestive heart failure) (Chronic) CHF (congestive heart failure) (Chronic) Chronic venous insufficiency (Chronic) CKD (chronic kidney disease), stage IV Coronary artery disease (Chronic) Diabetes 1.5, 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 (Acute) Diabetic neuropathy (Chronic) DM type 2 (diabetes mellitus, type 2) (Chronic) Hallux valgus (acquired), left foot (Acute) History of osteomyelitis (Chronic) "R third toe" History of uterine cancer (Chronic) "s/p XRT" HTN (hypertension) (Chronic) Hyperlipidemia (Chronic) Mild intellectual disability (Chronic) Pacemaker (Chronic) Type 2 diabetes mellitus with diabetic peripheral angiopathy without gangrene (Acute) Uterine cancer (Resolved) Surgical History History of amputation of lesser toe of right foot (Chronic) History of amputation of lesser toe of right foot (Acute) History of lumpectomy of left breast (Resolved) History of total bilateral knee replacement (Chronic) S/P cardiac pacemaker procedure (Resolved) S/P cholecystectomy (Chronic) S/P cholecystectomy (Resolved) Status post bilateral knee replacements (Resolved) Status post placement of cardiac pacemaker (Chronic) Family History Mother Pneumonia Social History Preferred Language: [place] Communication Ability: Impaired Visual Impairment: No Limitations 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: Normal [employer] Required: No Beliefs That Will Affect Care: None marital status: Current Living Situation: [facility]way Current Living Situation Comment: [facility] Feels Safe at Home: Yes Safety Concerns: Feels Safe At This Time Smoking Status: Never smoker Second Hand Exposure: No ; Hx Alcohol Use: No Hx Substance Use: No Review of Systems Review of Systems: No pain No SOB Feeling very tired. Full ROS difficult to obtain due to lethargy/drowsiness. Physical Exam Constitutional: + ill appearing, + obese and + lethargic; no acute distress ENMT: Mouth: + poor dentition (no teeth or dentures) scabs and flaking skin around nose and mouth Respiratory: normal respiratory effort, lungs clear to auscultation Auscultation: + diminished lung sounds Cardiovascular: Rate/Rhythm: regular rate and regular rhythm Extremities: + edema Gastrointestinal (Abdomen): Inspection/Auscultation: normal bowel sounds Percussion/Palpation: abdomen soft; abdomen nontender Skin: + pallor Neurologic: moves all extremities and awake (awake but lethargic/drowsy) Psychiatric: Orientation: oriented to person, oriented to place and oriented to time Insight: + impaired insight (due to acute illness) has known intellectual disability Results & Data Vital Signs (Past 12 Hours) Vital Signs Temp Pulse Pulse Resp BP Pulse Ox 07/25/19 14:30 60 23 106/58 L 95 07/25/19 13:30 60 23 104/57 L 96 07/25/19 13:04 60 27 H 101/50 L 95 07/25/19 13:00 60 101/56 L 07/25/19 12:50 60 21 89/56 L 98 07/25/19 12:45 62 89/56 L 07/25/19 12:34 60 18 105/59 L 92 07/25/19 12:30 67 106/56 L 07/25/19 12:28 36 C L 07/25/19 12:15 60 106/51 L 07/25/19 12:00 63 107/53 L 07/25/19 11:45 61 109/58 L 07/25/19 11:31 60 17 109/55 L 93 07/25/19 11:30 60 109/55 L 07/25/19 11:19 60 18 107/51 L 88 L 07/25/19 11:17 60 14 104/54 L 96 07/25/19 11:15 60 104/54 L 07/25/19 11:06 60 19 94 07/25/19 11:04 60 20 101/47 L 93 07/25/19 11:02 75 19 102/66 93 07/25/19 11:00 60 102/66 07/25/19 10:49 60 18 84/44 L 97 07/25/19 10:45 60 84/44 L 07/25/19 10:34 60 17 112/55 L 100 07/25/19 10:32 60 12 123/57 L 99 07/25/19 10:30 60 112/55 L 07/25/19 10:19 36.4 C L 61 60 19 128/73 97 07/25/19 09:31 61 19 116/53 L 96 07/25/19 08:35 36.4 C L 07/25/19 08:31 60 18 130/60 96 07/25/19 08:00 60 07/25/19 07:46 60 18 98 07/25/19 07:31 60 15 127/60 100 07/25/19 06:45 36.4 C L 07/25/19 06:31 60 14 130/56 L 100 07/25/19 05:31 60 17 116/49 L 100 07/25/19 05:23 60 20 96 07/25/19 04:31 36.3 C L 60 19 124/54 L 95 Coding Level of Care Code 57887 Inpt Consult Level 3 Diagnoses Goals of care, counseling/discussion Z71.89 Acute renal failure superimposed on stage 4 chronic kidney disease N17.9; N18.4 Acute renal failure type: unspecified Hyperkalemia E87.5 Paroxysmal atrial fibrillation I48.0 Time Spent (min) 50 Time Spent Midlevel 50 minutes with >50% of the time spent at bedside with patient and ICU team discussing condition, goals, and plan of care.
[2019-07-25 15:34] LABS: Hematocrit (blood only) 28.9 % (37-47); Hemoglobin 8.2 g/dL (12.0-16.0)
[2019-07-25 15:50] LABS: BUN Creatinine Ratio 36.6 (10-20); Calcium 8.6 mg/dl (8.5-10.1); Creatinine Clr Calc Pharmacy 34.8 ml/min; Est GFR (African American) 33.4; Est GFR (Non-African American) 28.8; Magnesium 2.5 mg/dl (1.8-2.4); Phosphorus 3.5 mg/dl (2.5-4.9); Potassium 4.8 mmol/L (3.5-5.1)
--- NOTE | 2019-07-25 17:43 | Electrocardiogram Report ---
Test Reason : Blood Pressure : / mmHG Vent. Rate : 060 BPM Atrial Rate : 071 BPM P-R Int : 168 ms QRS Dur : 160 ms QT Int : 490 ms P-R-T Axes : 000 -17 117 degrees QTc Int : 490 ms AV dual-paced rhythm Abnormal ECG When compared with ECG of 05-JUN-2019 17:17, No significant change was found Confirmed by Gm Cordero ([id number]) on 07/25/2019 5:43:04 PM Referred By: Confirmed By:Sean Cordero
--- NOTE | 2019-07-25 17:49 | Electrocardiogram Report ---
Test Reason : Blood Pressure : / mmHG Vent. Rate : 060 BPM Atrial Rate : 064 BPM P-R Int : 168 ms QRS Dur : 160 ms QT Int : 474 ms P-R-T Axes : 000 267 123 degrees QTc Int : 474 ms AV dual-paced rhythm Biventricular pacemaker detected Abnormal ECG When compared with ECG of 24-JUL-2019 16:10, (unconfirmed) No significant change was found Confirmed by Gm Cordero ([id number]) on 07/25/2019 5:49:11 PM Referred By: REFERRED SELF Confirmed By:Sean Cordero
[2019-07-25] MEDS: FUROSEMIDE 80 MG in SYRINGE 0 ML IV SCH (18:03)
--- NOTE | 2019-07-25 19:18 | Hospitalist Progress Note ---
Date of Service July 25, 2019 Assessment & Plan (1) CHF (congestive heart failure): ASSESSMENT AND PLAN: This is a 73-year-old female, [facility] resident, history of chronic kidney disease stage III to IV, history of hyperkalemia in the past, history of paroxysmal atrial fibrillation, history of diastolic congestive heart failure, diabetes, hypertension, history of chronic lower extremity wounds, who presents with acute respiratory distress secondary to congestive heart failure and found to have acute kidney injury and hyperkalemia and also GI bleed and hypoglycemia and hypothermia. 1. Acute on chronic respiratory failure. [id number] diastolic congestive heart failure, on Lasix 20 mg b.i.d. -- weaned off Bipap continue Lasix 80mg IV q12h 2. History of systolic congestive heart failure in the past with EF of 20% to 25%, status post automatic implantable cardioverter defibrillator, but last echo EF improved. -- echo ordered guest service team leader consulted continue Carvedilol, Digoxin monitor response to lsaix 3. Hyperkalemia. The patient has history of hyperkalemia in the past, last admission it was thought to be from the Bactrim. Presents with potassium of 6.2. -- Marina Manager consulted s/p HD monitor 4. Acute kidney injury on chronic kidney disease stage III to IV, baseline creatinine of 1.5, presently creatinine of 2.4, could be cardiorenal. -- Marina Manager consulted s/p HD monitor crea, volume status, K 5. Hypoglycemia. -- BSGs improving 6. Hypothermia, could be from congestive heart failure and hypoglycemia. -- resolved 7. Gastrointestinal bleed, black stools and Hemoccult positive. -- Hg 8.2 -- GI consulted monitor H&H for now Protonix drip discontinued, now on Famotidine at HS ASA and Eliquis on hold 8. History of atrial fibrillation, rate controlled on amiodarone and Coreg and digoxin. Holding aspirin and Eliquis. We will monitor the heart rates. Status post pacemaker. 9. Diabetes, currently came with hypoglycemia. Holding home insulin. Placed on insulin sliding scale. 10. Coronary artery disease status post stent. -- no chest pain Holding aspirin. Continue Imdur and Coreg with holding parameters. 11. Hypothyroidism, on Synthroid. 12.. History of bilateral lower extremity cellulitis. Recently had a course of Omnicef. Follow with wound care. 13. Ambulatory dysfunction. PT/OT when patient is stable. 14. Deep venous thrombosis prophylaxis. Holding Eliquis. Placed on sequential compression devices. Subjective ff up for acute on chronic respiratory failure seen sitting up in bed, on oxymask, but comfortable somewhat drowsy but oriented x 2 states she feels better compared to admission reports breathing has improved, no chest pain, abdominal pain, nausea denies other symptoms Review of Systems Review of Systems: All systems reviewed & are unremarkable except as noted in HPI & below Physical Exam Physical Exam: General- oriented x 2, not in distress, speaks in sentences with no effort or accessory muscle use Head- atraumatic Eyes- PERRL, EOMI, anicteric ENT- oropharynx clear Neck- supple, no JVD, no adenopathy, no thyromegaly; carotids +2/2, no bruits appreciated Lungs- mild rales left base, clear on the right Heart- normal rate, regular rhythm; no murmur, no gallop, no rub appreciated Abdomen- normal bowel sounds, nondistended, soft, nontender, no masses or hepatosplenomegaly Extremities- grade 1 lower leg edema, no calf tenderness; peripheral pulses intact Neuro- alert, oriented x 2; CN 2-12 grossly intact; motor 5/5 bilaterally;sensation 100% on all extremities; no other gross focal neurologic deficits Skin- warm & dry Results & Data Vital Signs (Past 12 Hours) Vital Signs Temp Pulse Pulse Resp BP BP Pulse Ox 07/25/19 15:46 60 18 95 07/25/19 15:00 60 07/25/19 14:30 60 23 106/58 L 95 07/25/19 13:45 36.4 C L 60 104/57 L 07/25/19 13:30 60 23 104/57 L 96 07/25/19 13:15 60 105/55 L 07/25/19 13:04 60 27 H 101/50 L 95 07/25/19 13:00 60 101/56 L 07/25/19 12:50 60 21 89/56 L 98 07/25/19 12:45 62 89/56 L 07/25/19 12:34 60 18 105/59 L 92 07/25/19 12:30 67 106/56 L 07/25/19 12:28 36 C L 07/25/19 12:15 60 106/51 L 07/25/19 12:00 63 107/53 L 07/25/19 11:45 61 109/58 L 07/25/19 11:31 60 17 109/55 L 93 07/25/19 11:30 60 109/55 L 07/25/19 11:19 60 18 107/51 L 88 L 07/25/19 11:17 60 14 104/54 L 96 07/25/19 11:15 60 104/54 L 07/25/19 11:06 60 19 94 07/25/19 11:04 60 20 101/47 L 93 07/25/19 11:02 75 19 102/66 93 07/25/19 11:00 60 102/66 07/25/19 10:49 60 18 84/44 L 97 07/25/19 10:45 60 84/44 L 07/25/19 10:34 60 17 112/55 L 100 07/25/19 10:32 60 12 123/57 L 99 07/25/19 10:30 60 112/55 L 07/25/19 10:19 36.4 C L 61 60 19 128/73 97 07/25/19 09:31 61 19 116/53 L 96 07/25/19 08:35 36.4 C L 07/25/19 08:31 60 18 130/60 96 07/25/19 08:00 60 07/25/19 07:46 60 18 98 07/25/19 07:31 60 15 127/60 100 Laboratory Results Laboratory Results - last 24 hr 07/24/19 07/24/19 07/24/19 18:55 18:55 19:50 WBC RBC Hgb POC Hgb Hct POC Hct MCV MCH MCHC RDW Std Deviation RDW Coeff of Gerardo Plt Count MPV Immature Gran % (Auto) Neut % (Auto) Lymph % (Auto) [place] % (Auto) Eos % (Auto) Baso % (Auto) Immature Gran # (Auto) Neut # (Auto) Lymph # (Auto) [place] # (Auto) Eos # (Auto) Baso # (Auto) Polychromasia Hypochromasia Basophilic Stippling Anisocytosis PT 12.6 H INR 1.2 H APTT 30.5 PTT Ratio 1.1 Specimen Type Sample Site Patient Temperature POC pH POC pCO2 POC pO2 POC HCO3 POC Total CO2 POC Base Excess POC O2 Saturation O2 Sat Pulse Oximetry ABG pH (Temp Correct) ABG pCO2 (Temp Corrct POC ABG pO2 at Pt Temp Wing Test VBG pH VBG pCO2 VBG pO2 VBG HCO3 VBG O2 Saturation VBG Base Excess Barometric Pressure O2 Delivery Device POC O2 Rate EPAP IPAP POC Sodium Sodium 141 POC Potassium Potassium 6.2 H* Chloride 108 H Carbon Dioxide 30 Anion Gap 2.0 L BUN 100 H Creatinine 2.43 H Est Cr Clr Drug Dosing 25.0 Est GFR ( Amer) 21.8 Est GFR (Non-Af Amer) 18.8 BUN/Creatinine Ratio 41.2 H Glucose 47 L* POC Glucose 48 L* Calcium 8.5 Ionized Calcium Phosphorus Magnesium 3.2 H Total Bilirubin 0.6 AST 9 L ALT 12 Alkaline Phosphatase 59 Total Creatine Kinase Troponin I NT-Pro-B Natriuret Pep 2319 H Total Protein 7.4 Albumin 2.9 L Globulin 4.5 H Albumin/Globulin Ratio 0.6 L Procalcitonin Nasal Screen MRSA (PCR) Hep Bs Antigen Hep Bs Antibody Hep Bs Antibody, Quant Hep B Core IgM Ab Influenza Type A (PCR) Influenza Type B (PCR) Blood Type Antibody Screen Crossmatch 07/24/19 07/24/19 07/24/19 20:14 20:53 21:48 WBC RBC Hgb POC Hgb Hct POC Hct MCV MCH MCHC RDW Std Deviation RDW Coeff of Gerardo Plt Count MPV Immature Gran % (Auto) Neut % (Auto) Lymph % (Auto) [place] % (Auto) Eos % (Auto) Baso % (Auto) Immature Gran # (Auto) Neut # (Auto) Lymph # (Auto) [place] # (Auto) Eos # (Auto) Baso # (Auto) Polychromasia Hypochromasia Basophilic Stippling Anisocytosis PT INR APTT PTT Ratio Specimen Type Sample Site Patient Temperature POC pH POC pCO2 POC pO2 POC HCO3 POC Total CO2 POC Base Excess POC O2 Saturation O2 Sat Pulse Oximetry ABG pH (Temp Correct) ABG pCO2 (Temp Corrct POC ABG pO2 at Pt Temp Wing Test VBG pH VBG pCO2 VBG pO2 VBG HCO3 VBG O2 Saturation VBG Base Excess Barometric Pressure O2 Delivery Device POC O2 Rate EPAP IPAP POC Sodium Sodium POC Potassium Potassium Chloride Carbon Dioxide Anion Gap BUN Creatinine Est Cr Clr Drug Dosing Est GFR ( Amer) Est GFR (Non-Af Amer) BUN/Creatinine Ratio Glucose POC Glucose 93 91 Calcium Ionized Calcium Phosphorus Magnesium Total Bilirubin AST ALT Alkaline Phosphatase Total Creatine Kinase Troponin I NT-Pro-B Natriuret Pep Total Protein Albumin Globulin Albumin/Globulin Ratio Procalcitonin Nasal Screen MRSA (PCR) Hep Bs Antigen Hep Bs Antibody Hep Bs Antibody, Quant Hep B Core IgM Ab Influenza Type A (PCR) Influenza Type B (PCR) Blood Type A Positive Antibody Screen NEGATIVE Crossmatch See Detail 07/24/19 07/25/19 07/25/19 23:44 00:52 00:52 WBC RBC Hgb 8.6 L POC Hgb Hct 30.5 L POC Hct MCV MCH MCHC RDW Std Deviation RDW Coeff of Gerardo Plt Count MPV Immature Gran % (Auto) Neut % (Auto) Lymph % (Auto) [place] % (Auto) Eos % (Auto) Baso % (Auto) Immature Gran # (Auto) Neut # (Auto) Lymph # (Auto) [place] # (Auto) Eos # (Auto) Baso # (Auto) Polychromasia Hypochromasia Basophilic Stippling Anisocytosis PT INR APTT PTT Ratio Specimen Type Sample Site Patient Temperature POC pH POC pCO2 POC pO2 POC HCO3 POC Total CO2 POC Base Excess POC O2 Saturation O2 Sat Pulse Oximetry ABG pH (Temp Correct) ABG pCO2 (Temp Corrct POC ABG pO2 at Pt Temp Wing Test VBG pH VBG pCO2 VBG pO2 VBG HCO3 VBG O2 Saturation VBG Base Excess Barometric Pressure O2 Delivery Device POC O2 Rate EPAP IPAP POC Sodium Sodium 141 POC Potassium Potassium 6.0 H Chloride 108 H Carbon Dioxide 31 Anion Gap 2.0 L BUN 103 H Creatinine 2.38 H Est Cr Clr Drug Dosing 25.0 Est GFR ( Amer) 22.4 Est GFR (Non-Af Amer) 19.3 BUN/Creatinine Ratio 43.4 H Glucose 56 L POC Glucose 142 H Calcium 8.7 Ionized Calcium Phosphorus 5.8 H Magnesium 3.1 H Total Bilirubin AST ALT Alkaline Phosphatase Total Creatine Kinase 44 Troponin I < 0.015 NT-Pro-B Natriuret Pep Total Protein Albumin Globulin Albumin/Globulin Ratio Procalcitonin Nasal Screen MRSA (PCR) Hep Bs Antigen Hep Bs Antibody Hep Bs Antibody, Quant Hep B Core IgM Ab Influenza Type A (PCR) Influenza Type B (PCR) Blood Type Antibody Screen Crossmatch 07/25/19 07/25/19 07/25/19 00:52 01:07 02:04 WBC RBC Hgb POC Hgb Hct POC Hct MCV MCH MCHC RDW Std Deviation RDW Coeff of Gerardo Plt Count MPV Immature Gran % (Auto) Neut % (Auto) Lymph % (Auto) [place] % (Auto) Eos % (Auto) Baso % (Auto) Immature Gran # (Auto) Neut # (Auto) Lymph # (Auto) [place] # (Auto) Eos # (Auto) Baso # (Auto) Polychromasia Hypochromasia Basophilic Stippling Anisocytosis PT INR APTT PTT Ratio Specimen Type Sample Site Patient Temperature POC pH POC pCO2 POC pO2 POC HCO3 POC Total CO2 POC Base Excess POC O2 Saturation O2 Sat Pulse Oximetry ABG pH (Temp Correct) ABG pCO2 (Temp Corrct POC ABG pO2 at Pt Temp Wing Test VBG pH 7.28 L VBG pCO2 67 H VBG pO2 32 VBG HCO3 31 VBG O2 Saturation < 60.0 VBG Base Excess 2.6 Barometric Pressure 732.1 O2 Delivery Device POC O2 Rate EPAP IPAP POC Sodium Sodium POC Potassium Potassium Chloride Carbon Dioxide Anion Gap BUN Creatinine Est Cr Clr Drug Dosing Est GFR ( Amer) Est GFR (Non-Af Amer) BUN/Creatinine Ratio Glucose POC Glucose 72 79 Calcium Ionized Calcium Phosphorus Magnesium Total Bilirubin AST ALT Alkaline Phosphatase Total Creatine Kinase Troponin I NT-Pro-B Natriuret Pep Total Protein Albumin Globulin Albumin/Globulin Ratio Procalcitonin Nasal Screen MRSA (PCR) Hep Bs Antigen Hep Bs Antibody Hep Bs Antibody, Quant Hep B Core IgM Ab Influenza Type A (PCR) Influenza Type B (PCR) Blood Type Antibody Screen Crossmatch 07/25/19 07/25/19 07/25/19 02:59 03:00 03:34 WBC RBC Hgb POC Hgb Hct POC Hct MCV MCH MCHC RDW Std Deviation RDW Coeff of Gerardo Plt Count MPV Immature Gran % (Auto) Neut % (Auto) Lymph % (Auto) [place] % (Auto) Eos % (Auto) Baso % (Auto) Immature Gran # (Auto) Neut # (Auto) Lymph # (Auto) [place] # (Auto) Eos # (Auto) Baso # (Auto) Polychromasia Hypochromasia Basophilic Stippling Anisocytosis PT INR APTT PTT Ratio Specimen Type Sample Site Patient Temperature POC pH POC pCO2 POC pO2 POC HCO3 POC Total CO2 POC Base Excess POC O2 Saturation O2 Sat Pulse Oximetry ABG pH (Temp Correct) ABG pCO2 (Temp Corrct POC ABG pO2 at Pt Temp Wing Test VBG pH VBG pCO2 VBG pO2 VBG HCO3 VBG O2 Saturation VBG Base Excess Barometric Pressure O2 Delivery Device POC O2 Rate EPAP IPAP POC Sodium Sodium POC Potassium Potassium Chloride Carbon Dioxide Anion Gap BUN Creatinine Est Cr Clr Drug Dosing Est GFR ( Amer) Est GFR (Non-Af Amer) BUN/Creatinine Ratio Glucose POC Glucose 62 L* 64 L* 107 H Calcium Ionized Calcium Phosphorus Magnesium Total Bilirubin AST ALT Alkaline Phosphatase Total Creatine Kinase Troponin I NT-Pro-B Natriuret Pep Total Protein Albumin Globulin Albumin/Globulin Ratio Procalcitonin Nasal Screen MRSA (PCR) Hep Bs Antigen Hep Bs Antibody Hep Bs Antibody, Quant Hep B Core IgM Ab Influenza Type A (PCR) Influenza Type B (PCR) Blood Type Antibody Screen Crossmatch 07/25/19 07/25/19 07/25/19 04:05 04:05 04:05 WBC 6.98 RBC 3.13 L Hgb 8.3 L POC Hgb Hct 30.0 L POC Hct MCV 95.8 MCH 26.5 MCHC 27.7 L RDW Std Deviation 72.3 H RDW Coeff of Gerardo 21.3 H Plt Count 191 MPV 8.7 Immature Gran % (Auto) 0.1 Neut % (Auto) 81.4 Lymph % (Auto) 7.0 [place] % (Auto) 8.3 Eos % (Auto) 2.9 Baso % (Auto) 0.3 Immature Gran # (Auto) 0.01 Neut # (Auto) 5.68 Lymph # (Auto) 0.49 L [place] # (Auto) 0.58 Eos # (Auto) 0.20 Baso # (Auto) 0.02 Polychromasia 1+ Hypochromasia Present Basophilic Stippling Occasional Anisocytosis Present PT INR APTT PTT Ratio Specimen Type Sample Site Patient Temperature POC pH POC pCO2 POC pO2 POC HCO3 POC Total CO2 POC Base Excess POC O2 Saturation O2 Sat Pulse Oximetry ABG pH (Temp Correct) ABG pCO2 (Temp Corrct POC ABG pO2 at Pt Temp Wing Test VBG pH VBG pCO2 VBG pO2 VBG HCO3 VBG O2 Saturation VBG Base Excess Barometric Pressure O2 Delivery Device POC O2 Rate EPAP IPAP POC Sodium Sodium 142 POC Potassium Potassium 6.6 H* Chloride 109 H Carbon Dioxide 31 Anion Gap 1.0 L BUN 100 H Creatinine 2.40 H Est Cr Clr Drug Dosing 24.8 Est GFR ( Amer) 22.1 Est GFR (Non-Af Amer) 19.1 BUN/Creatinine Ratio 41.7 H Glucose 82 POC Glucose Calcium 8.7 Ionized Calcium Phosphorus 5.7 H Magnesium 3.0 H Total Bilirubin AST ALT Alkaline Phosphatase Total Creatine Kinase Troponin I NT-Pro-B Natriuret Pep Total Protein Albumin Globulin Albumin/Globulin Ratio Procalcitonin 0.21 Nasal Screen MRSA (PCR) Hep Bs Antigen Hep Bs Antibody Hep Bs Antibody, Quant Hep B Core IgM Ab Influenza Type A (PCR) Influenza Type B (PCR) Blood Type Antibody Screen Crossmatch 07/25/19 07/25/19 07/25/19 04:05 04:05 04:05 WBC RBC Hgb POC Hgb Hct POC Hct MCV MCH MCHC RDW Std Deviation RDW Coeff of Gerardo Plt Count MPV Immature Gran % (Auto) Neut % (Auto) Lymph % (Auto) [place] % (Auto) Eos % (Auto) Baso % (Auto) Immature Gran # (Auto) Neut # (Auto) Lymph # (Auto) [place] # (Auto) Eos # (Auto) Baso # (Auto) Polychromasia Hypochromasia Basophilic Stippling Anisocytosis PT INR APTT PTT Ratio Specimen Type Sample Site Patient Temperature POC pH POC pCO2 POC pO2 POC HCO3 POC Total CO2 POC Base Excess POC O2 Saturation O2 Sat Pulse Oximetry ABG pH (Temp Correct) ABG pCO2 (Temp Corrct POC ABG pO2 at Pt Temp Wing Test VBG pH 7.29 L VBG pCO2 65 H VBG pO2 37 VBG HCO3 30 VBG O2 Saturation < 60.0 VBG Base Excess 2.8 Barometric Pressure 732.6 O2 Delivery Device POC O2 Rate EPAP IPAP POC Sodium Sodium POC Potassium Potassium Chloride Carbon Dioxide Anion Gap BUN Creatinine Est Cr Clr Drug Dosing Est GFR ( Amer) Est GFR (Non-Af Amer) BUN/Creatinine Ratio Glucose POC Glucose Calcium Ionized Calcium Phosphorus Magnesium Total Bilirubin AST ALT Alkaline Phosphatase Total Creatine Kinase Troponin I NT-Pro-B Natriuret Pep Total Protein Albumin Globulin Albumin/Globulin Ratio Procalcitonin Nasal Screen MRSA (PCR) Hep Bs Antigen Neg Hep Bs Antibody Non-Immune Hep Bs Antibody, Quant 3.41 L Hep B Core IgM Ab Pending Influenza Type A (PCR) Influenza Type B (PCR) Blood Type Antibody Screen Crossmatch 07/25/19 07/25/19 07/25/19 05:03 06:02 06:20 WBC RBC Hgb POC Hgb 9.5 L Hct POC Hct 28 L MCV MCH MCHC RDW Std Deviation RDW Coeff of Gerardo Plt Count MPV Immature Gran % (Auto) Neut % (Auto) Lymph % (Auto) [place] % (Auto) Eos % (Auto) Baso % (Auto) Immature Gran # (Auto) Neut # (Auto) Lymph # (Auto) [place] # (Auto) Eos # (Auto) Baso # (Auto) Polychromasia Hypochromasia Basophilic Stippling Anisocytosis PT INR APTT PTT Ratio Specimen Type Arterial Sample Site L Radial Patient Temperature 36.3 POC pH 7.37 POC pCO2 54 H POC pO2 31 L POC HCO3 31 H POC Total CO2 33 H POC Base Excess 6.0 H POC O2 Saturation 92 O2 Sat Pulse Oximetry 97 ABG pH (Temp Correct) 7.381 ABG pCO2 (Temp Corrct 52 H POC ABG pO2 at Pt Temp 63 Wing Test Acceptable VBG pH VBG pCO2 VBG pO2 VBG HCO3 VBG O2 Saturation VBG Base Excess Barometric Pressure O2 Delivery Device BIPAP POC O2 Rate 16 EPAP 4 IPAP 8 POC Sodium 140 Sodium POC Potassium 6.4 H* Potassium Chloride Carbon Dioxide Anion Gap BUN Creatinine Est Cr Clr Drug Dosing Est GFR ( Amer) Est GFR (Non-Af Amer) BUN/Creatinine Ratio Glucose POC Glucose 183 H Calcium Ionized Calcium Phosphorus Magnesium Total Bilirubin AST ALT Alkaline Phosphatase Total Creatine Kinase Troponin I NT-Pro-B Natriuret Pep Total Protein Albumin Globulin Albumin/Globulin Ratio Procalcitonin Nasal Screen MRSA (PCR) Hep Bs Antigen Hep Bs Antibody Hep Bs Antibody, Quant Hep B Core IgM Ab Influenza Type A (PCR) Neg for Influ A Influenza Type B (PCR) Neg for Influ B Blood Type Antibody Screen Crossmatch 07/25/19 07/25/19 07/25/19 08:47 12:01 14:51 WBC RBC Hgb POC Hgb Hct POC Hct MCV MCH MCHC RDW Std Deviation RDW Coeff of Gerardo Plt Count MPV Immature Gran % (Auto) Neut % (Auto) Lymph % (Auto) [place] % (Auto) Eos % (Auto) Baso % (Auto) Immature Gran # (Auto) Neut # (Auto) Lymph # (Auto) [place] # (Auto) Eos # (Auto) Baso # (Auto) Polychromasia Hypochromasia Basophilic Stippling Anisocytosis PT INR APTT PTT Ratio Specimen Type Sample Site Patient Temperature POC pH POC pCO2 POC pO2 POC HCO3 POC Total CO2 POC Base Excess POC O2 Saturation O2 Sat Pulse Oximetry ABG pH (Temp Correct) ABG pCO2 (Temp Corrct POC ABG pO2 at Pt Temp Wing Test VBG pH VBG pCO2 VBG pO2 VBG HCO3 VBG O2 Saturation VBG Base Excess Barometric Pressure O2 Delivery Device POC O2 Rate EPAP IPAP POC Sodium Sodium 141 POC Potassium Potassium 4.8 D Chloride 106 Carbon Dioxide 31 Anion Gap 4.0 BUN 63 H Creatinine 1.71 H D Est Cr Clr Drug Dosing 34.8 Est GFR ( Amer) 33.4 Est GFR (Non-Af Amer) 28.8 BUN/Creatinine Ratio 36.6 H Glucose 89 POC Glucose 95 86 Calcium 8.6 Ionized Calcium Phosphorus 3.5 D Magnesium 2.5 H Total Bilirubin AST ALT Alkaline Phosphatase Total Creatine Kinase Troponin I NT-Pro-B Natriuret Pep Total Protein Albumin Globulin Albumin/Globulin Ratio Procalcitonin Nasal Screen MRSA (PCR) Hep Bs Antigen Hep Bs Antibody Hep Bs Antibody, Quant Hep B Core IgM Ab Influenza Type A (PCR) Influenza Type B (PCR) Blood Type Antibody Screen Crossmatch 07/25/19 07/25/19 07/25/19 14:51 14:51 15:58 WBC RBC Hgb 8.2 L POC Hgb Hct 28.9 L POC Hct MCV MCH MCHC RDW Std Deviation RDW Coeff of Gerardo Plt Count MPV Immature Gran % (Auto) Neut % (Auto) Lymph % (Auto) [place] % (Auto) Eos % (Auto) Baso % (Auto) Immature Gran # (Auto) Neut # (Auto) Lymph # (Auto) [place] # (Auto) Eos # (Auto) Baso # (Auto) Polychromasia Hypochromasia Basophilic Stippling Anisocytosis PT INR APTT PTT Ratio Specimen Type Sample Site Patient Temperature POC pH POC pCO2 POC pO2 POC HCO3 POC Total CO2 POC Base Excess POC O2 Saturation O2 Sat Pulse Oximetry ABG pH (Temp Correct) ABG pCO2 (Temp Corrct POC ABG pO2 at Pt Temp Wing Test VBG pH VBG pCO2 VBG pO2 VBG HCO3 VBG O2 Saturation VBG Base Excess Barometric Pressure O2 Delivery Device POC O2 Rate EPAP IPAP POC Sodium Sodium POC Potassium Potassium Chloride Carbon Dioxide Anion Gap BUN Creatinine Est Cr Clr Drug Dosing Est GFR ( Amer) Est GFR (Non-Af Amer) BUN/Creatinine Ratio Glucose POC Glucose 107 H Calcium Ionized Calcium 1.05 L Phosphorus Magnesium Total Bilirubin AST ALT Alkaline Phosphatase Total Creatine Kinase Troponin I NT-Pro-B Natriuret Pep Total Protein Albumin Globulin Albumin/Globulin Ratio Procalcitonin Nasal Screen MRSA (PCR) Hep Bs Antigen Hep Bs Antibody Hep Bs Antibody, Quant Hep B Core IgM Ab Influenza Type A (PCR) Influenza Type B (PCR) Blood Type Antibody Screen Crossmatch 07/25/19 07/25/19 07/25/19 18:03 18:46 Unknown WBC RBC Hgb Pending POC Hgb Hct Pending POC Hct MCV MCH MCHC RDW Std Deviation RDW Coeff of Gerardo Plt Count MPV Immature Gran % (Auto) Neut % (Auto) Lymph % (Auto) [place] % (Auto) Eos % (Auto) Baso % (Auto) Immature Gran # (Auto) Neut # (Auto) Lymph # (Auto) [place] # (Auto) Eos # (Auto) Baso # (Auto) Polychromasia Hypochromasia Basophilic Stippling Anisocytosis PT INR APTT PTT Ratio Specimen Type Sample Site Patient Temperature POC pH POC pCO2 POC pO2 POC HCO3 POC Total CO2 POC Base Excess POC O2 Saturation O2 Sat Pulse Oximetry ABG pH (Temp Correct) ABG pCO2 (Temp Corrct POC ABG pO2 at Pt Temp Wing Test VBG pH VBG pCO2 VBG pO2 VBG HCO3 VBG O2 Saturation VBG Base Excess Barometric Pressure O2 Delivery Device POC O2 Rate EPAP IPAP POC Sodium Sodium POC Potassium Potassium Chloride Carbon Dioxide Anion Gap BUN Creatinine Est Cr Clr Drug Dosing Est GFR ( Amer) Est GFR (Non-Af Amer) BUN/Creatinine Ratio Glucose POC Glucose 127 H Calcium Ionized Calcium Phosphorus Magnesium Total Bilirubin AST ALT Alkaline Phosphatase Total Creatine Kinase Troponin I NT-Pro-B Natriuret Pep Total Protein Albumin Globulin Albumin/Globulin Ratio Procalcitonin Nasal Screen MRSA (PCR) Negative Hep Bs Antigen Hep Bs Antibody Hep Bs Antibody, Quant Hep B Core IgM Ab Influenza Type A (PCR) Influenza Type B (PCR) Blood Type Antibody Screen Crossmatch (1) CHF (congestive heart failure) Heart failure chronicity: unspecified Heart failure type: unspecified Qualified Code(s): I50.9 - Heart failure, unspecified
[2019-07-25 19:25] LABS: Hematocrit (blood only) 29.5 % (37-47); Hemoglobin 8.2 g/dL (12.0-16.0)
--- NOTE | 2019-07-25 20:02 | Communication Note ---
Date of Service: July 25, 2019 Critical CARE addendum: Patient was seen and examined at bedside. Patient was on BiPAP at the time of examination. Patient is mentally challenged. On physical exam there is diffuse bilateral lower lobe crackles, +2 pitting edema bilateral lower extremity. Labs showed that patient has worsening potassium of 6.6 she did get Lasix insulin calcium gluconate in the ED. I ordered stat Kayexalate to be given. There are no EKG changes appreciated. I had a call with son Aime Gudino who is the decision maker for the patient. Explained that if the potassium does not improve patient most likely will need hemodialysis. He understands and agrees with the plan and consented for hemodialysis catheter to be placed and followed by hemodialysis. Spoke with photography professor who agrees with the plan and wants to dialyze the patient for hyperkalemia along with respiratory failure from volume overload. We will put the dialysis catheter in and repeat BMP 2 to 3 hours after. Repeat H&H given the FOBT is positive. Coding Level of Care Code Critical Care fabiano vaughn'tarun 30 min Time Spent (min) 20
[2019-07-25] MEDS ORDERED: FAMOTIDINE 20 MG in SYRINGE 3 ML IV SCH (21:00)
[2019-07-25] MEDS: DOCUSATE SODIUM 100 MG CAP PO SCH (21:29)
[2019-07-26] MEDS: INSULIN ASPART 100 UNITS/ML 3 ML PEN SC SCH ×5 (00:49→20:42)
[2019-07-26 04:56] LABS: Hematocrit (blood only) 30.4 % (37-47); Hemoglobin 8.4 g/dL (12.0-16.0); Mean Corpuscular Hemoglobin 26.5 pg (25-34); Mean Corpuscular Hgb Conc 27.6 g/dL (32-36); Mean Corpuscular Volume 95.9 fL (80-100); Nucleated RBC # (auto) 0.02 K/uL (0-0); Nucleated RBC % (auto) 0.3 %; Platelet Count 154 K/uL (130-400); RDW Coefficient of Variation 21.5 % (11.5-14.5); RDW Standard Deviation 73.3 fL (36.4-46.3); Red Blood Count 3.17 M/uL (4.2-5.4); White Blood Count 6.66 K/uL (4.8-10.8)
[2019-07-26 05:04] LABS: BUN Creatinine Ratio 32.3 (10-20); Calcium 8.5 mg/dl (8.5-10.1); Est GFR (African American) 26.8; Est GFR (Non-African American) 23.1; Magnesium 2.6 mg/dl (1.8-2.4); Potassium 5.2 mmol/L (3.5-5.1)
[2019-07-26 05:05] LABS: Phosphorus 5.1 mg/dl (2.5-4.9)
[2019-07-26 05:18] LABS: Anisocytosis Present; Basophils # (auto) 0.03 K/uL (0-0.2); Basophils % (auto) 0.5 %; Eosinophils # (auto) 0.15 K/uL (0-0.5); Eosinophils % (auto) 2.3 %; Hypochromasia Present; Immature Granulocytes # (auto) 0.03 K/uL (0.00-0.02); Immature Granulocytes % (auto) 0.5 %; Lymphocytes # (auto) 0.49 K/uL (1.2-3.4); Lymphocytes % (auto) 7.4 %; Monocytes # (auto) 0.46 K/uL (0.11-0.59); Monocytes % (auto) 6.9 %; Neutrophils % (auto) 82.4 %
[2019-07-26] MEDS: FUROSEMIDE 80 MG in SYRINGE 0 ML IV SCH ×2 (06:07→17:24)
[2019-07-26] MEDS: LEVOTHYROXINE SODIUM 75 MCG TABLET PO SCH (06:07)
--- NOTE | 2019-07-26 07:54 | Critical Care Progress Note ---
Date of Service July 26, 2019 Assessment & Plan (1) Hyperkalemia: -- Hyperkalemia Did not respond to Lasix and Kayexalate Status post emergency dialysis 07/25/2019 Potassium today 5.2 Patient is -1.8 L so far Continue with diuretics to maintain negative balance Nephrology on board No dialysis today --Acute hypoxic respiratory failure secondary to acute on chronic systolic CHF Continue with BiPAP nightly and PRN shortness of breath Patient is DNR Diuretics to keep negative balance Keep the patient comfortable Palliative care has been consulted --Liu ceballos Currently rate controlled Apixaban on hold given patient had FOBT positive GI said no plans from their perspective Would restart apixaban if the hemoglobin is stable at renal dosing On amiodarone and digoxin --JASON on CKD Could be cardiorenal on top of patient being given naproxen twice daily dose at home She is also getting 80 mg of Lasix every 12 hours Monitor BUN/creatinine Avoid nephrotoxic medications Follow-up nephrology recommendations --Diabetes mellitus type 2 Continue with insulin sliding scale --Hypothyroidism/coronary artery disease status post stent Continue with levothyroxine, continue with beta-sheron --Intellectual deficit Continue with aspiration precautions --Secondary hypercoagulable state IPC's Plan: Start oral diabetic diet with fluid restriction 1200 mL Went down on Coreg to 3.125 every 12 given that the patient had episodes of hypotension during dialysis. If there is no more plan of dialysis can resume the original dose. Hold Imdur also for the same reason Patient is hemodynamically stable to be downgraded to medical floor. We will get a digoxin level for the patient. (2) CHF (congestive heart failure): (3) JASON (acute kidney injury): (4) Heme positive stool: (5) Paroxysmal atrial fibrillation: Subjective Patient seen and examined at bedside. No acute distress, no adverse events overnight. Patient got dialysis yesterday for hyperkalemia. Patient had episodes of hypotension during dialysis. At the time of examination patient was on oxygen mask saturating well. Patient said the shortness of breath is better. Not in any respiratory distress. Denies any chest pain, no dizziness, no nausea or vomiting. Review of Systems Review of Systems: All systems reviewed & are unremarkable except as noted in HPI & below Physical Exam Physical Exam: Constitutional: No acute distress HEENT: EOMI, PERRLA, protruding tongue, thick short neck Respiratory system: Decreased air entry bilaterally, positive crackles bilateral lower lobes, no wheeze, no rhonchi CVS: S1-S2 positive, no murmurs or gallops Abdomen: Soft, nontender, nondistended, positive bowel sounds x4 Extremities: +2 pulses bilaterally radialis/ dorsalis pedis, no cyanosis, +1 edema bilateral lower extremity Neuro: Awake alert oriented to self Psych: Normal mood and affect G/U: Positive Veliz Right IJ dialysis catheter Skin: no rashes, warm and dry Lymphatic: no cervical or axillary lymphadenopathy Results & Data ([facility]) Vital Signs (Past 12 Hours) Vital Signs Temp Pulse Resp BP Pulse Ox 07/26/19 06:30 66 29 H 126/55 L 99 07/26/19 06:00 62 24 121/62 97 07/26/19 05:00 60 16 117/58 L 99 07/26/19 04:30 36.7 C 60 18 119/62 96 07/26/19 03:51 60 16 122/87 99 07/26/19 02:30 60 18 125/62 98 07/26/19 01:30 60 20 123/60 92 07/26/19 00:48 36.6 C 60 17 113/53 L 91 07/25/19 23:31 60 15 173/156 H 89 L 07/25/19 23:00 60 18 97 07/25/19 22:13 63 24 93 07/25/19 22:00 60 27 H 93 07/25/19 21:30 61 20 125/51 L 94 07/25/19 21:00 63 16 99 07/25/19 20:30 60 28 H 118/78 98 07/25/19 20:00 37.1 C 60 21 98 07/26/19 04:23 07/26/19 04:23 Coding Level of Care Code Critical Care 1st 30-74 mins Diagnoses Hyperkalemia E87.5 CHF (congestive heart failure) I50.9 Heart failure chronicity: acute Heart failure type: unspecified JASON (acute kidney injury) N17.9 Heme positive stool R19.5 Paroxysmal atrial fibrillation I48.0 Time Spent (min) 35 (1) CHF (congestive heart failure) Heart failure chronicity: acute Heart failure type: unspecified Qualified Code(s): I50.9 - Heart failure, unspecified
[2019-07-26] MEDS: carvediloL 3.125 MG TAB PO SCH ×2 (08:51→20:33)
[2019-07-26] MEDS: LACTOBACILLUS ACIDOPHILUS (FLORANEX) TAB PO SCH ×3 (08:52→20:31)
[2019-07-26] MEDS: AMIODARONE 200 MG TAB PO SCH (08:53)
[2019-07-26] MEDS: GABAPENTIN 100 MG CAP PO SCH ×2 (08:53→20:32)
[2019-07-26] MEDS: NYSTATIN POWDER 15GM BTL EXT SCH ×3 (08:54→20:32)
[2019-07-26] MEDS: FERROUS SULFATE 325 MG TAB PO SCH ×2 (08:54→17:24)
[2019-07-26] MEDS: POLYETHYLENE (MIRALAX) 17 GM PACK PO SCH (08:54)
--- NOTE | 2019-07-26 08:55 | Nephrology Progress Note ---
Date of Service July 26, 2019 Assessment & Plan (1) Acute renal failure superimposed on stage 4 chronic kidney disease: nonoliguric JASON on CKD4 w/ baseline creatinine 1.6-1.9; presenting cr eatinine 2.4; not oliguric. suspect ischemic atn related to hemodynamic changes w/ vol OL/ diastolic heart failure provoked by nsaids. improved creatinine today will reflect dialysis in part. K 5.2 - on high side but not excessive. bp and volume status acceptable on low dose BB -continue lasix 80 mg IV bid -when taking po, ensure renal diet -daily bmp -no dialysis today; keep catheter one more day at least -avoid nephrotoxins unless lifesaving -no nsaids> should be on d/c paperwork she should not have nsaids in excess of ASA 81 mg daily (2) Anemia of chronic disease: hgb 8.4 today -daily hgb -no nsaids apart from ASA 81 mg now or at d/c -will refer to anemia clinic at hospital d/c Present on Admission?: Yes Subjective no complaints this am; remains NPO and tells nursing she's hungry; no pain in legs, not sob, no edema; no n/v; no chest pain Review of Systems Review of Systems: ROS limited by cognitive status Constitutional: + weakness; no body aches Respiratory: no cough and no dyspnea on exertion 02 needs at baseline Cardiovascular: no chest pain, no dyspnea on exertion and no edema Gastrointestinal: no abdominal pain, no vomiting and no change in bowel habits Musculoskeletal: no swelling and no body aches Physical Exam Constitutional: well developed, + obese, cooperative and comfortable (on 3LNC, cognitive challenges) Eyes: EOM intact bilaterally ENMT: Ears: no external ear abnormality Nose: no external nose abnormality Mouth: + dry oral mucous membranes Neck: no nuchal rigidity Respiratory: normal respiratory effort Auscultation: + diminished lung sounds Cardiovascular: RRR, no murmur, no edema Gastrointestinal (Abdomen): Inspection/Auscultation: normal bowel sounds Percussion/Palpation: abdomen soft; abdomen nontender Musculoskeletal: Extremities: strength 5/5 throughout Skin: no rashes, warm and dry Neurologic: rueda, limited speech Psychiatric: Orientation: alert, oriented to person and oriented to place Affect: + anxious affect and + flat affect Results & Data Vital Signs (Past 12 Hours) Vital Signs Temp Pulse Resp BP Pulse Ox 07/26/19 06:30 66 29 H 126/55 L 99 07/26/19 06:00 62 24 121/62 97 07/26/19 05:00 60 16 117/58 L 99 07/26/19 04:30 36.7 C 60 18 119/62 96 07/26/19 03:51 60 16 122/87 99 07/26/19 02:30 60 18 125/62 98 07/26/19 01:30 60 20 123/60 92 07/26/19 00:48 36.6 C 60 17 113/53 L 91 07/25/19 23:31 60 15 173/156 H 89 L 07/25/19 23:00 60 18 97 07/25/19 22:13 63 24 93 07/25/19 22:00 60 27 H 93 07/25/19 21:30 61 20 125/51 L 94 07/25/19 21:00 63 16 99 Laboratory Results 07/26/19 04:23 07/26/19 04:23 (1) Acute renal failure superimposed on stage 4 chronic kidney disease Acute renal failure type: unspecified Qualified Code(s): N17.9 - Acute kidney failure, unspecified; N18.4 - Chronic kidney disease, stage 4 (severe)
--- NOTE | 2019-07-26 09:19 | Hospitalist Progress Note ---
Date of Service July 26, 2019 Assessment & Plan (1) CHF (congestive heart failure): ASSESSMENT AND PLAN: This is a 73-year-old female, [facility] resident, history of chronic kidney disease stage III to IV, history of hyperkalemia in the past, history of paroxysmal atrial fibrillation, history of diastolic congestive heart failure, diabetes, hypertension, history of chronic lower extremity wounds, who presents with acute respiratory distress secondary to congestive heart failure and found to have acute kidney injury and hyperkalemia and also GI bleed and hypoglycemia and hypothermia. 1. Acute on chronic respiratory failure. [id number] diastolic congestive heart failure, on Lasix 20 mg b.i.d. -- weaned off Bipap Patient diuresing well continue Lasix 80mg IV q12h 2. History of systolic congestive heart failure in the past with EF of 20% to 25%, status post automatic implantable cardioverter defibrillator, but last echo EF improved. 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 Hyperkalemia. The patient has history of hyperkalemia in the past, last admission it was thought to be from the Bactrim. Presents with potassium of 6.2. -- Licensed Nursing Assistant consulted s/p HD 07/25/19 K improved to 4.9 monitor 4. Acute kidney injury on chronic kidney disease stage III to IV, baseline creatinine of 1.5, presently creatinine of 2.4, could be cardiorenal. -- Licensed Nursing Assistant consulted crea 2.4 to 2.06 hold off HD for now monitor 5. Hypoglycemia. -- BSGs improved 6. Hypothermia, could be from congestive heart failure and hypoglycemia. -- resolved 7. Gastrointestinal bleed, black stools and Hemoccult positive. -- Hg remained stable at 8.4 -- GI consulted monitor H&H for now Protonix drip discontinued, now on Famotidine at HS ASA and Eliquis on hold 8. History of atrial fibrillation, rate controlled on amiodarone and Coreg and digoxin. Holding aspirin and Eliquis. Status post pacemaker. -- HR controlled continue Amiodarone, Coreg, Digoxin ASA and Eliquis on hold 9. Diabetes -- Placed on insulin sliding scale. 10. Coronary artery disease status post stent. -- no chest pain Holding aspirin. Continue Coreg with holding parameters. -- IMdur on hold 11. Hypothyroidism, on Synthroid. 12.. History of bilateral lower extremity cellulitis. Recently had a course of Omnicef. Follow with wound care. 13. Ambulatory dysfunction. PT/OT when patient is stable. 14. Deep venous thrombosis prophylaxis. Holding Eliquis in light of possible GI bleed. Placed on sequential compression devices. Subjective Follow-up for acute on chronic congestive heart failure exacerbation Seen sitting up in bed, on oxygen mask, comfortable Appears tired but more awake, answers most questions appropriate States she feels improved compared to yesterday Denies shortness of breath, cough, chest pain No abdominal pain, nausea vomiting, fever chills No other symptoms Review of Systems Review of Systems: All systems reviewed & are unremarkable except as noted in HPI & below Physical Exam Physical Exam: General- oriented x 2, not in distress, speaks in sentences with no effort or accessory muscle use Eyes- anicteric Neck- no JVD Lungs-mild rales bilaterally at the bases No wheezing Heart- normal rate, regular rhythm; no murmurs Abdomen- normal bowel sounds, nondistended, soft, nontender Extremities-mild lower leg edema, no calf tenderness Neuro- alert, oriented x 2; no gross focal neurologic deficits Skin- warm & dry Results & Data ([facility]) Vital Signs (Past 12 Hours) Vital Signs Temp Pulse Resp BP Pulse Ox 07/26/19 06:30 66 29 H 126/55 L 99 07/26/19 06:00 62 24 121/62 97 07/26/19 05:00 60 16 117/58 L 99 07/26/19 04:30 36.7 C 60 18 119/62 96 07/26/19 03:51 60 16 122/87 99 07/26/19 02:30 60 18 125/62 98 07/26/19 01:30 60 20 123/60 92 07/26/19 00:48 36.6 C 60 17 113/53 L 91 07/25/19 23:31 60 15 173/156 H 89 L 07/25/19 23:00 60 18 97 07/25/19 22:13 63 24 93 07/25/19 22:00 60 27 H 93 01/29/20 21:30 61 20 125/51 L 94 Laboratory Results Laboratory Results - last 24 hr 07/25/19 07/25/19 07/26/19 04:05 18:46 00:45 WBC RBC Hgb 8.2 L Hct 29.5 L MCV MCH MCHC RDW Std Deviation RDW Coeff of Gerardo Plt Count MPV Immature Gran % (Auto) Neut % (Auto) Lymph % (Auto) Humphreys % (Auto) Eos % (Auto) Baso % (Auto) Immature Gran # (Auto) Neut # (Auto) Lymph # (Auto) Humphreys # (Auto) Eos # (Auto) Baso # (Auto) Absolute Nucleated RBC Nucleated RBC % (auto) Hypochromasia Anisocytosis Sodium Potassium Chloride Carbon Dioxide Anion Gap BUN Creatinine Est Cr Clr Drug Dosing Est GFR ( Amer) Est GFR (Non-Af Amer) BUN/Creatinine Ratio Glucose POC Glucose 159 H Calcium Phosphorus Magnesium Digoxin Digitoxin Hep B Core IgM Ab NON-REACTIVE 07/26/19 07/26/19 07/26/19 04:23 04:23 06:12 WBC 6.66 RBC 3.17 L Hgb 8.4 L Hct 30.4 L MCV 95.9 MCH 26.5 MCHC 27.6 L RDW Std Deviation 73.3 H RDW Coeff of Gerardo 21.5 H Plt Count 154 MPV 9.0 Immature Gran % (Auto) 0.5 Neut % (Auto) 82.4 Lymph % (Auto) 7.4 Humphreys % (Auto) 6.9 Eos % (Auto) 2.3 Baso % (Auto) 0.5 Immature Gran # (Auto) 0.03 H Neut # (Auto) 5.50 Lymph # (Auto) 0.49 L Humphreys # (Auto) 0.46 Eos # (Auto) 0.15 Baso # (Auto) 0.03 Absolute Nucleated RBC 0.02 H Nucleated RBC % (auto) 0.3 Hypochromasia Present Anisocytosis Present Sodium 139 Potassium 5.2 H Chloride 104 Carbon Dioxide 34 H Anion Gap 1.0 L BUN 66 H Creatinine 2.05 H D Est Cr Clr Drug Dosing 29.0 Est GFR ( Amer) 26.8 Est GFR (Non-Af Amer) 23.1 BUN/Creatinine Ratio 32.3 H Glucose 127 H POC Glucose 132 H Calcium 8.5 Phosphorus 5.1 H D Magnesium 2.6 H Digoxin Digitoxin Hep B Core IgM Ab 07/26/19 07/26/19 07/26/19 09:26 11:46 15:00 WBC RBC Hgb Hct MCV MCH MCHC RDW Std Deviation RDW Coeff of Gerardo Plt Count MPV Immature Gran % (Auto) Neut % (Auto) Lymph % (Auto) Humphreys % (Auto) Eos % (Auto) Baso % (Auto) Immature Gran # (Auto) Neut # (Auto) Lymph # (Auto) Humphreys # (Auto) Eos # (Auto) Baso # (Auto) Absolute Nucleated RBC Nucleated RBC % (auto) Hypochromasia Anisocytosis Sodium 141 Potassium 4.9 Chloride 103 Carbon Dioxide 35 H Anion Gap 3.0 BUN 68 H Creatinine 2.06 H Est Cr Clr Drug Dosing 28.9 Est GFR ( Amer) 26.6 Est GFR (Non-Af Amer) 23.0 BUN/Creatinine Ratio 33.1 H Glucose 110 H POC Glucose 118 H Calcium 8.6 Phosphorus 5.2 H Magnesium 2.7 H Digoxin Digitoxin Pending Hep B Core IgM Ab 07/26/19 07/26/19 16:13 16:27 WBC RBC Hgb Hct MCV MCH MCHC RDW Std Deviation RDW Coeff of Gerardo Plt Count MPV Immature Gran % (Auto) Neut % (Auto) Lymph % (Auto) Humphreys % (Auto) Eos % (Auto) Baso % (Auto) Immature Gran # (Auto) Neut # (Auto) Lymph # (Auto) Humphreys # (Auto) Eos # (Auto) Baso # (Auto) Absolute Nucleated RBC Nucleated RBC % (auto) Hypochromasia Anisocytosis Sodium Potassium Chloride Carbon Dioxide Anion Gap BUN Creatinine Est Cr Clr Drug Dosing Est GFR ( Amer) Est GFR (Non-Af Amer) BUN/Creatinine Ratio Glucose POC Glucose 138 H Calcium Phosphorus Magnesium Digoxin 1.4 Digitoxin Hep B Core IgM Ab (1) CHF (congestive heart failure) Heart failure chronicity: unspecified Heart failure type: unspecified Qualified Code(s): I50.9 - Heart failure, unspecified
[2019-07-26] MEDS ORDERED: PANTOprazole 40 MG TAB PO ONE (10:45)
--- NOTE | 2019-07-26 14:06 | Cardiology Progress Note ---
Date of Service July 26, 2019 Assessment & Plan (1) CHF (congestive heart failure): Volume status has improved following hemodialysis. She remains on intravenous Lasix. Carvedilol continues at low dose. (2) Acute kidney injury: Per Dr. Nova. (3) HTN (hypertension): Adequate control on current medical regimen. (4) Presence of biventricular AICD: Device was functioning normally when interrogated back in February. (5) Paroxysmal atrial fibrillation: The patient demonstrates atrioventricular pacing. Continue amiodarone. Restart Eliquis when able. (6) CAD, multiple vessel: Quiescent on current medical regimen. Subjective The patient is resting comfortably in bed without complaints of chest dyspnea. Physical Exam Physical Exam: In general this is an obese white female seated in a wheelchair without complaints. HEENT exam is negative. Neck is supple with full carotid upstrokes. There are no carotid bruits. No JVD. There is no thyromegaly. Cardiovascular exam reveals an irregular rhythm with distant heart sounds. No obvious murmurs. No S3. Lungs are clear without rales, rhonchi, or wheezes. Abdomen is obese without bruits. Extremities reveal intact radial artery pulses bilaterally. 1+ pretibial edema is noted bilaterally with chronic venous stasis changes. Results & Data Vital Signs (Past 12 Hours) Vital Signs Temp Pulse Resp BP Pulse Ox 07/26/19 06:30 66 29 H 126/55 L 99 07/26/19 06:00 62 24 121/62 97 07/26/19 05:00 60 16 117/58 L 99 07/26/19 04:30 36.7 C 60 18 119/62 96 07/26/19 03:51 60 16 122/87 99 07/26/19 02:30 60 18 125/62 98 PG Care Time/CCT Total # of Minutes Spent Total Time Spent with Patient: Total time spent is greater than 50% in coordination of care (as documented) at patient's floor/unit and/or counseling patient: Coding Level of Care Code 91951 Subseq Hosp Care Lvl 3 Diagnoses CHF (congestive heart failure) I50.9 Heart failure chronicity: unspecified Heart failure type: unspecified Acute kidney injury N17.9 HTN (hypertension) I10 Hypertension type: essential hypertension Presence of biventricular AICD Z95.810 Paroxysmal atrial fibrillation I48.0 CAD, multiple vessel I25.10 (1) CHF (congestive heart failure) Heart failure chronicity: unspecified Heart failure type: unspecified Qualified Code(s): I50.9 - Heart failure, unspecified (2) HTN (hypertension) Hypertension type: essential hypertension Qualified Code(s): I10 - Essential (primary) hypertension
[2019-07-26 15:58] LABS: BUN Creatinine Ratio 33.1 (10-20); Calcium 8.6 mg/dl (8.5-10.1); Creatinine Clr Calc Pharmacy 28.9 ml/min; Est GFR (African American) 26.6; Magnesium 2.7 mg/dl (1.8-2.4); Potassium 4.9 mmol/L (3.5-5.1)
[2019-07-26 16:01] LABS: Phosphorus 5.2 mg/dl (2.5-4.9)
[2019-07-26] MEDS: DIGOXIN 0.125 MG TAB PO SCH (16:20)
--- NOTE | 2019-07-26 17:27 | Electrocardiogram Report ---
Test Reason : Blood Pressure : / mmHG Vent. Rate : 060 BPM Atrial Rate : 060 BPM P-R Int : 168 ms QRS Dur : 146 ms QT Int : 460 ms P-R-T Axes : 000 258 110 degrees QTc Int : 460 ms AV dual-paced rhythm Biventricular pacemaker detected Abnormal ECG When compared with ECG of 25-JUL-2019 04:49, No significant change was found Confirmed by Gm Cordero ([id number]) on 07/26/2019 5:27:32 PM Referred By: REFERRED SELF Confirmed By:Sean Cordero
[2019-07-26] MEDS: PANTOprazole 40 MG TAB PO SCH (20:33)
[2019-07-26] MEDS: DOCUSATE SODIUM 100 MG CAP PO SCH (20:33)
[2019-07-27 04:47] LABS: Hematocrit (blood only) 30.2 % (37-47); Hemoglobin 8.4 g/dL (12.0-16.0); Mean Corpuscular Hemoglobin 27.1 pg (25-34); Mean Corpuscular Hgb Conc 27.8 g/dL (32-36); Mean Corpuscular Volume 97.4 fL (80-100); Mean Platelet Volume 8.9 fL (7.4-10.4); Platelet Count 137 K/uL (130-400); RDW Coefficient of Variation 21.7 % (11.5-14.5); RDW Standard Deviation 75.6 fL (36.4-46.3); White Blood Count 6.58 K/uL (4.8-10.8)
[2019-07-27 05:07] LABS: BUN Creatinine Ratio 30.9 (10-20); Calcium 8.5 mg/dl (8.5-10.1); Creatinine Clr Calc Pharmacy 26.6 ml/min; Est GFR (African American) 24.1; Est GFR (Non-African American) 20.8; Magnesium 2.6 mg/dl (1.8-2.4); Potassium 4.8 mmol/L (3.5-5.1)
[2019-07-27 05:09] LABS: Anisocytosis Present; Basophilic Stippling 1+; Basophils # (auto) 0.04 K/uL (0-0.2); Basophils % (auto) 0.6 %; Eosinophils # (auto) 0.16 K/uL (0-0.5); Eosinophils % (auto) 2.4 %; Hypochromasia Present; Immature Granulocytes # (auto) 0.01 K/uL (0.00-0.02); Immature Granulocytes % (auto) 0.2 %; Lymphocytes % (auto) 9.1 %; Monocytes # (auto) 0.62 K/uL (0.11-0.59); Monocytes % (auto) 9.4 %; Neutrophils # (auto) 5.15 K/uL (1.4-6.5); Neutrophils % (auto) 78.3 %
[2019-07-27] MEDS: FUROSEMIDE 80 MG in SYRINGE 0 ML IV SCH (05:28)
[2019-07-27] MEDS: LEVOTHYROXINE SODIUM 75 MCG TABLET PO SCH (05:28)
[2019-07-27] MEDS ORDERED: [UNRECOGNIZED DRUG - OTHER] PO PRN (07:43)
--- NOTE | 2019-07-27 07:58 | XRay Report ---
XR chest 1V portable HISTORY: f/u COMPARISON: Chest 07/25/2019. FINDINGS: Left-sided pacemaker/defibrillator is again noted. Right jugular catheter terminates at the superior cavoatrial junction. This remains unchanged. The heart remains enlarged. Small bilateral pl eural effusion persists. Perihilar interstitial vascular thickening remains unchanged. This is consis tent with moderate to severe pulmonary edema. No pneumothorax. IMPRESSION: No change in the moderate to severe pulmonary edema, cardiomegaly, and small bilateral pleural effusi ons. ACT 112: Negative or not required by law. Electronically signed by: Marquez Clark M.D. 07/27/2019 7:57 AM
[2019-07-27] MEDS: FERROUS SULFATE 325 MG TAB PO SCH ×2 (08:00→17:31)
[2019-07-27] MEDS: INSULIN ASPART 100 UNITS/ML 3 ML PEN SC SCH ×4 (08:45→21:20)
--- NOTE | 2019-07-27 10:47 | Critical Care Progress Note ---
Date of Service July 27, 2019 Assessment & Plan (1) Hyperkalemia: --Status post hyperkalemia Did not respond to Lasix and Kayexalate Status post emergency dialysis 07/25/2019 Potassium today 4.8 Patient is -3.8 L so far Continue with diuretics to maintain negative balance Nephrology on board --Acute hypoxic respiratory failure secondary to acute on chronic systolic CHF Continue with BiPAP nightly and PRN shortness of breath Patient is DNR Diuretics to keep negative balance Keep the patient comfortable Palliative care has been consulted --Liu ceballos Currently rate controlled Apixaban on hold given patient had FOBT positive GI said no plans from their perspective Resume apixaban if the hemoglobin is stable at renal dosing On amiodarone and digoxin --JASON on CKD Could be cardiorenal on top of patient being given naproxen twice daily dose at home Monitor BUN/creatinine Avoid nephrotoxic medications Follow-up nephrology recommendations --Diabetes mellitus type 2 Continue with insulin sliding scale --Hypothyroidism/coronary artery disease status post stent Continue with levothyroxine, continue with beta-sheron --Intellectual deficit Continue with aspiration precautions --High digoxin level 1.9 --> 1.4 Can resume when it is between 0.8-1 --Secondary hypercoagulable state IPC's Plan: Go down Lasix to 60 mg every 12 Patient is hemodynamically stable to be downgraded to medical floor. GERSON Veliz (2) CHF (congestive heart failure): (3) JASON (acute kidney injury): (4) Heme positive stool: (5) Paroxysmal atrial fibrillation: Subjective Patient seen and examined at bedside. No acute distress, no adverse events overnight. Patient is awake alert oriented to self and place. Denies any shortness of breath, no chest pain, no headache, no nausea, no vomiting. Tolerating diet p.o. Making good amount of urine. Review of Systems Review of Systems: All systems reviewed & are unremarkable except as noted in HPI & below Physical Exam Physical Exam: Constitutional: No acute distress HEENT: EOMI, PERRLA, macroglossia, thick short neck Respiratory system: Decreased air entry bilaterally, positive crackles bilateral lower lobes, no wheeze, no rhonchi CVS: S1-S2 positive, no murmurs or gallops Abdomen: Soft, nontender, nondistended, positive bowel sounds x4 Extremities: +2 pulses bilaterally radialis/ dorsalis pedis, no cyanosis, +1 edema bilateral lower extremity Neuro: Awake alert oriented to self Psych: Normal mood and affect G/U: Positive Veliz Right IJ dialysis catheter Skin: no rashes, warm and dry Lymphatic: no cervical or axillary lymphadenopathy Results & Data ([facility]) Vital Signs (Past 12 Hours) Vital Signs Temp Pulse Pulse Resp BP BP Pulse Ox 07/27/19 09:00 60 14 94 07/27/19 08:49 36.4 C L 63 20 120/60 95 07/27/19 08:00 60 18 07/27/19 07:00 60 20 07/27/19 04:00 36.6 C 60 14 103/66 97 07/27/19 00:00 36.5 C 60 17 108/51 L 91 07/27/19 04:14 07/27/19 04:14 Coding Level of Care Code Critical Care 1st 30-74 mins Diagnoses Hyperkalemia E87.5 CHF (congestive heart failure) I50.9 Heart failure chronicity: acute Heart failure type: unspecified JASON (acute kidney injury) N17.9 Heme positive stool R19.5 Paroxysmal atrial fibrillation I48.0 Time Spent (min) 25 (1) CHF (congestive heart failure) Heart failure chronicity: acute Heart failure type: unspecified Qualified Code(s): I50.9 - Heart failure, unspecified
[2019-07-27] MEDS: AMIODARONE 200 MG TAB PO SCH (11:56)
[2019-07-27] MEDS: LACTOBACILLUS ACIDOPHILUS (FLORANEX) TAB PO SCH ×3 (11:56→21:00)
[2019-07-27] MEDS: carvediloL 3.125 MG TAB PO SCH ×2 (11:56→21:02)
[2019-07-27] MEDS: PANTOprazole 40 MG TAB PO SCH ×2 (11:57→21:04)
[2019-07-27] MEDS: GABAPENTIN 100 MG CAP PO SCH ×2 (11:57→21:03)
[2019-07-27] MEDS: POLYETHYLENE (MIRALAX) 17 GM PACK PO SCH (11:57)
[2019-07-27] MEDS: NYSTATIN POWDER 15GM BTL EXT SCH ×3 (11:57→21:02)
[2019-07-27] MEDS: CHOLECALCIFEROL 1,000 UNITS 25 MCG TAB PO SCH (11:57)
--- NOTE | 2019-07-27 12:47 | Cardiology Progress Note ---
Date of Service July 27, 2019 Assessment & Plan (1) CHF (congestive heart failure): Volume status has improved with hemodialysis. She remains on intravenous Lasix. Carvedilol continues at low dose. (2) Acute kidney injury: Per Dr. Nova. (3) HTN (hypertension): Adequate control on current regimen. (4) Presence of biventricular AICD: Device was functioning normally when interrogated back in December 2018. (5) Paroxysmal atrial fibrillation: The patient demonstrates appropriate atrio-ventricular pacing. Continue amiodarone. Restart Eliquis prior to discharge.. (6) CAD, multiple vessel: Quiescent on current medical regimen. Subjective The patient is resting comfortably in bed without complaints of chest pain or dyspnea. Physical Exam Physical Exam: In general this is an obese white female seated in a wheelchair without complaints. HEENT exam is negative. Neck is supple with full carotid upstrokes. There are no carotid bruits. No JVD. There is no thyromegaly. Cardiovascular exam reveals an irregular rhythm with distant heart sounds. No obvious murmurs. No S3. Lungs are clear without rales, rhonchi, or wheezes. Ab domen is obese without bruits. Extremities reveal intact radial artery pulses bilaterally. 1+ pretibial edema is noted bilaterally with chronic venous stasis changes. Results & Data Vital Signs (Past 12 Hours) Vital Signs Temp Pulse Pulse Pulse Resp BP BP 07/27/19 11:44 36.5 C 61 20 104/62 07/27/19 09:00 60 14 07/27/19 08:49 36.4 C L 63 20 120/60 07/27/19 08:00 60 18 07/27/19 07:00 60 20 07/27/19 04:00 36.6 C 60 14 103/66 Pulse Ox 07/27/19 11:44 93 07/27/19 09:00 94 07/27/19 08:49 95 07/27/19 08:00 07/27/19 07:00 07/27/19 04:00 97 Diagnostic Findings chair notes appropriate atrial and ventricular pacing. PG Care Time/CCT Total # of Minutes Spent Total Time Spent with Patient: Total time spent is greater than 50% in coordination of care (as documented) at patient's floor/unit and/or counseling patient: Coding Level of Care Code 04508 Subseq Hosp Care Lvl 3 Diagnoses CHF (congestive heart failure) I50.9 Heart failure chronicity: unspecified Heart failure type: unspecified Acute kidney injury N17.9 HTN (hypertension) I10 Hypertension type: essential hypertension Presence of biventricular AICD Z95.810 Paroxysmal atrial fibrillation I48.0 CAD, multiple vessel I25.10 (1) CHF (congestive heart failure) Heart failure chronicity: unspecified Heart failure type: unspecified Qualified Code(s): I50.9 - Heart failure, unspecified (2) HTN (hypertension) Hypertension type: essential hypertension Qualified Code(s): I10 - Essential (primary) hypertension
--- NOTE | 2019-07-27 17:52 | Nephrology Progress Note ---
Date of Service July 27, 2019 Assessment & Plan (1) Acute renal failure superimposed on stage 4 chronic kidney disease: nonoliguric JASON on CKD4 w/ baseline creatinine 1.6-1.9; presenting cr eatinine 2.4; not oliguric. suspect ischemic atn related to hemodynamic changes w/ vol OL/ diastolic heart failure provoked by nsaids. improved creatinine today will reflect dialysis in part. K 4.8 - on high side but not excessive. bp and volume status acceptable on low dose BB -continue lasix 60 mg IV bid since XR today no better; keep yun for now -will place order to remove dialysis catheter -when taking po, ensure renal diet -daily bmp -no dialysis today; keep catheter one more day at least -avoid nephrotoxins unless lifesaving -no nsaids> should be on d/c paperwork she should not have nsaids in excess of ASA 81 mg daily (2) Anemia of chronic disease: hgb 8.4 today -daily hgb -no nsaids apart from ASA 81 mg now or at d/c -will refer to anemia clinic at [facility] d/c Subjective seen on rounds this evening 1744; labs reviewed earlier in day. no complaints. tired and napping; ate most of evening meal; no leg pain; feels breathing at baseline Review of Systems Review of Systems: All systems reviewed & are unremarkable except as noted in HPI & below Physical Exam Constitutional: well developed, + obese, cooperative and comfortable (on 3LNC, cognitive challenges; sitting up in w/c) Eyes: EOM intact bilaterally ENMT: Ears: no external ear abnormality Nose: no external nose abnormality Mouth: + dry oral mucous membranes Neck: no nuchal rigidity Respiratory: normal respiratory effort Auscultation: + breath sounds absent (bl bases) and + diminished lung sounds Cardiovascular: Rate/Rhythm: regular rate and regular rhythm Extremities: + edema (trace BLE) Gastrointestinal (Abdomen): Inspection/Auscultation: normal bowel sounds Percussion/Palpation: abdomen soft; abdomen nontender Musculoskeletal: Extremities: strength 5/5 throughout Skin: no rashes, warm and dry + wound (L pretibial, bandage not removed) Neurologic: wakens but drops back to sleep again; rueda, maneuvers for exam, no tremor Psychiatric: Orientation: oriented to person and oriented to place Eye Contact: + fair eye contact Affect: + flat affect Genitourinary: yun w/ ample urine Results & Data Vital Signs (Past 12 Hours) Vital Signs Temp Pulse Pulse Resp BP BP Pulse Ox 07/27/19 15:52 36.3 C L 60 18 118/53 L 96 07/27/19 15:47 60 07/27/19 11:44 36.5 C 61 20 104/62 93 07/27/19 09:00 60 14 94 07/27/19 08:49 36.4 C L 63 20 120/60 95 07/27/19 08:00 60 18 07/27/19 07:00 60 20 Laboratory Results 07/27/19 04:14 07/27/19 04:14 (1) Acute renal failure superimposed on stage 4 chronic kidney disease Acute renal failure type: unspecified Qualified Code(s): N17.9 - Acute kidney failure, unspecified; N18.4 - Chronic kidney disease, stage 4 (severe)
[2019-07-27] MEDS: FUROSEMIDE 60 MG in SYRINGE 0 ML IV SCH (18:08)
[2019-07-27] MEDS: DOCUSATE SODIUM 100 MG CAP PO SCH (21:00)
--- NOTE | 2019-07-27 21:03 | Hospitalist Progress Note ---
Date of Service July 27, 2019 Assessment & Plan (1) CHF (congestive heart failure): ASSESSMENT AND PLAN: This is a 73-year-old female, [facility] resident, history of chronic kidney disease stage III to IV, history of hyperkalemia in the past, history of paroxysmal atrial fibrillation, history of diastolic congestive heart failure, diabetes, hypertension, history of chronic lower extremity wounds, who presents with acute respiratory distress secondary to congestive heart failure and found to have acute kidney injury and hyperkalemia and also GI bleed and hypoglycemia and hypothermia. 1. Acute on chronic respiratory failure. [id number] diastolic congestive heart failure, on Lasix 20 mg b.i.d. -- weaned off Bipap, now on nasal cannula 2 to 3 L Patient diuresing well continue Lasix 80mg IV q12h --P checks x-ray unchanged, but will continue to monitor 2. History of systolic congestive heart failure in the past with EF of 20% to 25%, status post automatic implantable cardioverter defibrillator, but last echo EF improved. -- echo: Normal left ventricular systolic function, moderate concentric left ventricular hypertrophy, mild to moderate mitral anticonstipation general internal medicine doctor consulted continue Carvedilol, Digoxin HOLD door to prevent hypotension -- Lasix as noted above 3. Hyperkalemia. The patient has history of hyperkalemia in the past, last admission it was thought to be from the Bactrim. Presents with potassium of 6.2. -- Hydraulic Press Servicer consulted s/p HD 07/25/19 K improved to 4.8 monitor 4. Acute kidney injury on chronic kidney disease stage III to IV, baseline creatinine of 1.5, presently creatinine of 2.4, could be cardiorenal. -- Hydraulic Press Servicer consulted crea 2.4 to 2.2 hold off HD for now monitor 5. Hypoglycemia. -- BSGs improved 6. Hypothermia, could be from congestive heart failure and hypoglycemia. -- resolved 7. Gastrointestinal bleed, black stools and Hemoccult positive. -- Hg remained stable at 8.4 -- GI consulted monitor H&H for now Protonix drip discontinued, now on Famotidine at HS ASA and Eliquis on hold 8. History of atrial fibrillation, rate controlled on amiodarone and Coreg and digoxin. Holding aspirin and Eliquis. Status post pacemaker. -- HR controlled continue Amiodarone, Coreg, Digoxin ASA and Eliquis on hold 9. Diabetes -- Placed on insulin sliding scale. 10. Coronary artery disease status post stent. -- no chest pain Holding aspirin. Continue Coreg with holding parameters. -- IMdur on hold 11. Hypothyroidism, on Synthroid. 12.. History of bilateral lower extremity cellulitis. Recently had a course of Omnicef. Follow with wound care. 13. Ambulatory dysfunction. PT/OT when patient is stable. 14. Deep venous thrombosis prophylaxis. Holding Eliquis in light of possible GI bleed. Placed on sequential compression devices. Position Anticipate return to [facility] facility when medically stable Subjective Follow-up for acute hypoxic respiratory failure, diastolic CHF exacerbation Seen sitting up in bed, not in distress, on nasal cannula oxygen supplementation States that she feels improved today compared to yesterday Denies active shortness of breath, no chest pain Denies abdominal pain or nausea No other symptoms Review of Systems Review of Systems: All systems reviewed & are unremarkable except as noted in HPI & below Physical Exam Physical Exam: General- oriented x 2, not in distress, speaks in sentences with no effort or accessory muscle use Appears weak Eyes- anicteric Neck-mild JVD Lungs-positive mild rales bilateral bases, no wheezing Heart- normal rate, regular rhythm; no murmurs Abdomen- normal bowel sounds, nondistended, soft, nontender Extremities-mild lower leg edema, no calf tenderness Neuro- alert, oriented x 2; no gross focal neurologic deficits Skin- warm & dry Results & Data ([facility]) Vital Signs (Past 12 Hours) Vital Signs Temp Pulse Pulse Resp BP Pulse Ox 07/27/19 19:14 36.3 C L 59 L 16 113/65 97 07/27/19 15:52 36.3 C L 60 18 118/53 L 96 07/27/19 15:47 60 07/27/19 11:44 36.5 C 61 20 104/62 93 07/27/19 09:00 60 14 94 Laboratory Results Laboratory Results - last 24 hr 07/26/19 07/27/19 07/27/19 20:38 04:14 04:14 WBC 6.58 RBC 3.10 L Hgb 8.4 L Hct 30.2 L MCV 97.4 MCH 27.1 MCHC 27.8 L RDW Std Deviation 75.6 H RDW Coeff of Gerardo 21.7 H Plt Count 137 MPV 8.9 Immature Gran % (Auto) 0.2 Neut % (Auto) 78.3 Lymph % (Auto) 9.1 Surry % (Auto) 9.4 Eos % (Auto) 2.4 Baso % (Auto) 0.6 Immature Gran # (Auto) 0.01 Neut # (Auto) 5.15 Lymph # (Auto) 0.60 L Surry # (Auto) 0.62 H Eos # (Auto) 0.16 Baso # (Auto) 0.04 Hypochromasia Present Basophilic Stippling 1+ Anisocytosis Present Sodium 140 Potassium 4.8 Chloride 101 Carbon Dioxide 37 H Anion Gap 2.0 L BUN 69 H Creatinine 2.24 H Est Cr Clr Drug Dosing 26.6 Est GFR ( Amer) 24.1 Est GFR (Non-Af Amer) 20.8 BUN/Creatinine Ratio 30.9 H Glucose 103 H POC Glucose 132 H Calcium 8.5 Phosphorus 5.0 H Magnesium 2.6 H 07/27/19 07/27/19 07/27/19 06:16 10:55 16:56 WBC RBC Hgb Hct MCV MCH MCHC RDW Std Deviation RDW Coeff of Gerardo Plt Count MPV Immature Gran % (Auto) Neut % (Auto) Lymph % (Auto) Surry % (Auto) Eos % (Auto) Baso % (Auto) Immature Gran # (Auto) Neut # (Auto) Lymph # (Auto) Surry # (Auto) Eos # (Auto) Baso # (Auto) Hypochromasia Basophilic Stippling Anisocytosis Sodium Potassium Chloride Carbon Dioxide Anion Gap BUN Creatinine Est Cr Clr Drug Dosing Est GFR ( Amer) Est GFR (Non-Af Amer) BUN/Creatinine Ratio Glucose POC Glucose 122 H 142 H 116 H Calcium Phosphorus Magnesium (1) CHF (congestive heart failure) Heart failure chronicity: unspecified Heart failure type: unspecified Qualified Code(s): I50.9 - Heart failure, unspecified
[2019-07-28] MEDS: FUROSEMIDE 60 MG in SYRINGE 0 ML IV SCH ×2 (04:07→16:56)
[2019-07-28] MEDS: LEVOTHYROXINE SODIUM 75 MCG TABLET PO SCH (04:07)
[2019-07-28] MEDS: carvediloL 3.125 MG TAB PO SCH ×2 (08:25→20:28)
[2019-07-28] MEDS: LACTOBACILLUS ACIDOPHILUS (FLORANEX) TAB PO SCH ×3 (08:25→20:28)
[2019-07-28] MEDS: POLYETHYLENE (MIRALAX) 17 GM PACK PO SCH (08:26)
[2019-07-28] MEDS: FERROUS SULFATE 325 MG TAB PO SCH ×2 (08:26→16:55)
[2019-07-28] MEDS: PANTOprazole 40 MG TAB PO SCH ×2 (08:26→20:30)
[2019-07-28] MEDS: AMIODARONE 200 MG TAB PO SCH (08:26)
[2019-07-28] MEDS: GABAPENTIN 100 MG CAP PO SCH ×2 (08:26→20:30)
[2019-07-28] MEDS: CHOLECALCIFEROL 1,000 UNITS 25 MCG TAB PO SCH (08:27)
[2019-07-28] MEDS: NYSTATIN POWDER 15GM BTL EXT SCH ×3 (08:27→20:29)
[2019-07-28] MEDS: INSULIN ASPART 100 UNITS/ML 3 ML PEN SC SCH ×4 (08:28→20:30)
--- NOTE | 2019-07-28 09:45 | Nephrology Progress Note ---
Date of Service July 28, 2019 Assessment & Plan (1) Acute renal failure superimposed on stage 4 chronic kidney disease: nonoliguric JASON on CKD4 w/ baseline creatinine 1.6-1.9; presenting cr eatinine 2.4; not oliguric. suspect ischemic atn related to hemodynamic changes w/ vol OL/ diastolic heart failure provoked by nsai Patient is diuresing well and was net -1.9 L. Creatinine is stable slightly higher at 2.2 today. -Please remove dialysis catheter. -Will continue Lasix IV 60 mg twice daily. -avoid nephrotoxins unless lifesaving -no nsaids> should be on d/c paperwork she should not have nsaids in excess of ASA 81 mg daily (2) Anemia of chronic disease: hgb 8.4 today -daily hgb -no nsaids apart from ASA 81 mg now or at d/c -will refer to anemia clinic at hospital d/c Subjective Patient reports feeling well. She denies any shortness of breath. She is diuresing well and was net -1.9 L. Review of Systems Review of Systems: All systems reviewed & are unremarkable except as noted in HPI & below Physical Exam Physical Exam: General exam: Appears comfortable, no acute distress HEENT: Pupils are equal and reactive to light Neck: No JVD, neck is supple trachea is midline Respiratory system: Crackles bilaterally. Gastrointestinal: Abdomen is soft, non distended, non tender, bowel sounds are present CVS: Regular rate and rhythm. No murmurs, rubs or gallops Musculoskeletal: No joint or muscle tenderness Extremities: Non tender, 1+ edema, peripheral pulses are present Neuro: Oriented, no tremors, no focal neurological deficits Skin: No rashes Results & Data Vital Signs (Past 12 Hours) Vital Signs Temp Pulse Pulse Resp BP Pulse Ox 07/28/19 07:00 36.4 C L 61 20 118/57 L 94 07/28/19 03:08 36.3 C L 60 18 128/65 94 07/28/19 00:15 60 07/27/19 23:06 36.3 C L 60 18 116/66 95 Laboratory Results 07/27/19 04:14 Laboratory Results - last 24 hr 07/24/19 07/27/19 07/27/19 21:48 10:55 16:56 POC Glucose 142 H 116 H Crossmatch See Detail 02/01/20 07:35 POC Glucose 124 H Crossmatch (1) Acute renal failure superimposed on stage 4 chronic kidney disease Acute renal failure type: unspecified Qualified Code(s): N17.9 - Acute kidney failure, unspecified; N18.4 - Chronic kidney disease, stage 4 (severe)
[2019-07-28] MEDS: DIGOXIN 0.125 MG TAB PO SCH (16:54)
[2019-07-28] MEDS: DOCUSATE SODIUM 100 MG CAP PO SCH (20:27)
[2019-07-29] MEDS: LEVOTHYROXINE SODIUM 75 MCG TABLET PO SCH (05:36)
[2019-07-29] MEDS: FUROSEMIDE 60 MG in SYRINGE 0 ML IV SCH ×2 (05:37→18:08)
--- NOTE | 2019-07-29 07:26 | Hospitalist Progress Note ---
Date of Service delayed entry date of service noted below July 28, 2019 Assessment & Plan (1) CHF (congestive heart failure): ASSESSMENT AND PLAN: This is a 73-year-old female, [facility] resident, history of chronic kidney disease stage III to IV, history of hyperkalemia in the past, history of paroxysmal atrial fibrillation, history of diastolic congestive heart failure, diabetes, hypertension, history of chronic lower extremity wounds, who presents with acute respiratory distress secondary to congestive heart failure and found to have acute kidney injury and hyperkalemia and also GI bleed and hypoglycemia and hypothermia. 1. Acute on chronic respiratory failure. Vfoyh-ln-oqukzof diastolic congestive heart failure, on Lasix 20 mg b.i.d. -- weaned off Bipap, now on nasal cannula 2 to 3 L Patient continues to diurese well continue Lasix 60mg IV q12h -- Nephro on board 2. History of systolic congestive heart failure in the past with EF of 20% to 25%, status post automatic implantable cardioverter defibrillator, but last echo EF improved. -- echo: Normal left ventricular systolic function, moderate concentric left ventricular hypertrophy, mild to moderate mitral anticonstipation Ell Tutor consulted continue Carvedilol, Digoxin HOLD Imdur to prevent hypotension -- Lasix as noted above 3. Hyperkalemia. The patient has history of hyperkalemia in the past, last admission it was thought to be from the Bactrim. Presents with potassium of 6.2. -- Perfect Binder Feeder Offbearer consulted s/p HD 07/25/19 K improved monitor 4. Acute kidney injury on chronic kidney disease stage III to IV, baseline creatinine of 1.5, presently creatinine of 2.4, could be cardiorenal. -- Perfect Binder Feeder Offbearer consulted crea 2.4 to 2.2 hold off HD for now monitor 5. Hypoglycemia. -- BSGs improved 6. Hypothermia, could be from congestive heart failure and hypoglycemia. -- resolved 7. Gastrointestinal bleed, black stools and Hemoccult positive. -- Hg remained stable at 8.4 -- GI consulted monitor H&H for now Protonix drip discontinued, now on Famotidine at HS ASA and Eliquis on hold 8. History of atrial fibrillation, rate controlled on amiodarone and Coreg and digoxin. Holding aspirin and Eliquis. Status post pacemaker. -- HR controlled continue Amiodarone, Coreg, Digoxin ASA and Eliquis on hold 9. Diabetes -- Placed on insulin sliding scale. 10. Coronary artery disease status post stent. -- no chest pain Holding aspirin. Continue Coreg with holding parameters. -- IMdur on hold 11. Hypothyroidism, on Synthroid. 12. History of bilateral lower extremity cellulitis. Recently had a course of Omnicef. Follow with wound care. 13. Ambulatory dysfunction. PT/OT when patient is stable. 14. Deep venous thrombosis prophylaxis. Holding Eliquis in light of possible GI bleed. Placed on sequential compression devices. [facility] Subjective ff up for CHF seen resting in bed, not in distress appears tired, but answers questions appropriately denies shortness of breath, chest pain, palpitations eating well no other symptoms Review of Systems Review of Systems: All systems reviewed & are unremarkable except as noted in HPI & below Physical Exam Physical Exam: General- oriented x 2, not in distress, speaks in sentences with no effort or accessory muscle use Eyes- anicteric Neck- no JVD Lungs- mild rales at the bases, no wheezing Heart- normal rate, regular rhythm; no murmurs Abdomen- normal bowel sounds, nondistended, soft, nontender Extremities- mild pretibial edema, no calf tenderness Neuro- alert, oriented x 2; no gross focal neurologic deficits Skin- warm & dry Results & Data ([facility]) Vital Signs (Past 12 Hours) Vital Signs Temp Pulse Pulse Resp BP Pulse Ox 07/28/19 20:40 36.8 C 62 20 113/65 95 07/28/19 19:45 36.7 C 61 18 123/66 93 07/28/19 19:27 60 07/28/19 19:01 36.7 C 78 20 106/53 L 90 07/28/19 18:45 36.8 C 60 20 90 07/28/19 18:30 60 20 115/64 94 07/28/19 18:15 60 21 110/60 90 07/28/19 18:00 60 20 112/62 91 07/28/19 16:54 60 07/28/19 11:50 37.0 C 81 20 114/70 92 Laboratory Results all noted and reviewed (1) CHF (congestive heart failure) Heart failure chronicity: unspecified Heart failure type: unspecified Qualified Code(s): I50.9 - Heart failure, unspecified
[2019-07-29] MEDS: carvediloL 3.125 MG TAB PO SCH ×2 (08:24→20:42)
[2019-07-29] MEDS: GABAPENTIN 100 MG CAP PO SCH ×2 (08:24→20:42)
[2019-07-29] MEDS: AMIODARONE 200 MG TAB PO SCH (08:24)
[2019-07-29] MEDS: POLYETHYLENE (MIRALAX) 17 GM PACK PO SCH (08:24)
[2019-07-29] MEDS: FERROUS SULFATE 325 MG TAB PO SCH ×2 (08:24→18:08)
[2019-07-29] MEDS: NYSTATIN POWDER 15GM BTL EXT SCH ×3 (08:24→20:42)
[2019-07-29] MEDS: LACTOBACILLUS ACIDOPHILUS (FLORANEX) TAB PO SCH ×3 (08:24→20:42)
[2019-07-29] MEDS: CHOLECALCIFEROL 1,000 UNITS 25 MCG TAB PO SCH (08:25)
[2019-07-29] MEDS: PANTOprazole 40 MG TAB PO SCH ×2 (08:25→20:42)
[2019-07-29] MEDS: INSULIN ASPART 100 UNITS/ML 3 ML PEN SC SCH ×4 (08:26→21:12)
--- NOTE | 2019-07-29 09:49 | Nephrology Progress Note ---
Date of Service July 29, 2019 Assessment & Plan (1) Acute renal failure superimposed on stage 4 chronic kidney disease: nonoliguric JASON on CKD4 w/ baseline creatinine 1.6-1.9; presenting creatinine 2.4; not oliguric. suspect ischemic atn related to hemodynamic changes w/ vol OL/ diastolic heart failure provoked by nsaids. Patient is diuresing well and was net -1.8 L. Creatinine is pending today. -Will continue Lasix IV 60 mg twice daily. -avoid nephrotoxins unless lifesaving -no nsaids> should be on d/c paperwork she should not have nsaids in excess of ASA 81 mg daily (2) Anemia of chronic disease: Recent Hgb 8.4 -daily hgb -no nsaids apart from ASA 81 mg now or at d/c -will refer to anemia clinic at [facility] d/c Subjective Patient feels better today. She continues to diurese well and was net -1.8 L. No vomiting or diarrhea. She has a Veliz catheter. She uses a wheelchair for mobility. Review of Systems Review of Systems: All systems reviewed & are unremarkable except as noted in HPI & below Physical Exam Physical Exam: General exam: Appears comfortable, no acute distress HEENT: Pupils are equal and reactive to light Neck: No JVD, neck is supple trachea is midline Respiratory system: Reduced breath sounds in the bases bilaterally. Gastrointestinal: Abdomen is soft, non distended, non tender, bowel sounds are present CVS: Regular rate and rhythm. No murmurs, rubs or gallops Musculoskeletal: No joint or muscle tenderness Extremities: Non tender, no edema, peripheral pulses are present Neuro: Oriented, no tremors, no focal neurological deficits Skin: No rashes Results & Data Vital Signs (Past 12 Hours) Vital Signs Temp Pulse Pulse Resp BP Pulse Ox 07/29/19 07:00 36.7 C 60 20 117/58 L 98 07/29/19 04:00 36.5 C 60 20 118/69 94 07/29/19 00:23 60 07/29/19 00:19 36.8 C 62 18 111/67 93 (1) Acute renal failure superimposed on stage 4 chronic kidney disease Acute renal failure type: unspecified Qualified Code(s): N17.9 - Acute kidney failure, unspecified; N18.4 - Chronic kidney disease, stage 4 (severe)
[2019-07-29 10:24] LABS: BUN Creatinine Ratio 33.6 (10-20); Calcium 9.3 mg/dl (8.5-10.1); Creatinine Clr Calc Pharmacy 32.1 ml/min; Est GFR (African American) 30.7; Est GFR (Non-African American) 26.5; Potassium 4.2 mmol/L (3.5-5.1)
[2019-07-29 11:18] LABS: Base Excess ABG 14.4 mEq/L (-9-1.8); HCO3 ABG 42 mmol/L (19-24); Oxygen Saturation ABG 89.3 % (90-95); PCO2 ABG 74 mmHg (35-46); PO2 ABG 64 mmHg (80-95); pH ABG 7.37 (7.35-7.45)
[2019-07-29 11:20] LABS: Allen Test Pos (Pos)
--- NOTE | 2019-07-29 11:42 | XRay Report ---
SINGLE VIEW CHEST CLINICAL HISTORY: Follow-up congestive heart failure. FINDINGS: An AP, portable, upright chest radiograph is compared to study dated 07/27/2019. A 3-lead ca rdiac AICD is unchanged in position and partially obscures the left mid chest. The heart is enlarged noting atherosclerotic calcification of the thoracic aorta. There is pulmonary vascular congestion an d interstitial edema. There are layering pleural effusions with bibasilar consolidation. No pneumotho rax is seen. The skeletal structures are osteopenic. The bony thorax is grossly intact. IMPRESSION: 1. Cardiomegaly and AICD with evidence of congestive failure and interstitial edema. This is unchange d from yesterday. 2. Layering pleural effusions with bibasilar consolidation ACT 112: Negative or not required by law. Electronically signed by: Tae Bradshaw M.D. 07/29/2019 11:40 AM
--- NOTE | 2019-07-29 11:49 | Hospitalist Progress Note ---
Date of Service July 29, 2019 Assessment & Plan (1) CHF (congestive heart failure): ASSESSMENT AND PLAN: This is a 73-year-old female, [facility] resident, history of chronic kidney disease stage III to IV, history of hyperkalemia in the past, history of paroxysmal atrial fibrillation, history of diastolic congestive heart failure, diabetes, hypertension, history of chronic lower extremity wounds, who presents with acute respiratory distress secondary to congestive heart failure and found to have acute kidney injury and hyperkalemia and also GI bleed and hypoglycemia and hypothermia. 1. Acute on chronic respiratory failure. [id number] diastolic congestive heart failure, on Lasix 20 mg b.i.d. -- weaned off Bipap, now on nasal cannula 2 to 3 L -- reports dyspnea today cxr 07/29: 1. Cardiomegaly and AICD with evidence of congestive failure and interstitial edema. This is unchanged from yesterday. 2. Layering pleural effusions with bibasilar consolidation continue Lasix 60mg IV q12h -- check Chest US, may need Thoracentesis -- Nephro on board 2. History of systolic congestive heart failure in the past with EF of 20% to 25%, status post automatic implantable cardioverter defibrillator, but last echo EF improved. -- echo: Normal left ventricular systolic function, moderate concentric left ventricular hypertrophy, mild to moderate mitral anticonstipation Terminal Clerk consulted continue Carvedilol, Digoxin HOLD Imdur to prevent hypotension -- Lasix as noted above 3. Hyperkalemia. The patient has history of hyperkalemia in the past, last admission it was thought to be from the Bactri. Presents with potassium of 6.2. -- System Administration Advisor consulted s/p HD 07/25/19 K improved monitor 4. Acute kidney injury on chronic kidney disease stage III to IV, baseline creatinine of 1.5, presently creatinine of 2.4, could be cardiorenal. -- System Administration Advisor consulted crea 2.4 to 2.2 hold off HD for now monitor 5. Hypoglycemia. -- BSGs improved 6. Hypothermia, could be from congestive heart failure and hypoglycemia. -- resolved 7. Gastrointestinal bleed, black stools and Hemoccult positive. -- Hg remained stable at 8.4 -- GI consulted monitor H&H for now Protonix drip discontinued, now on Famotidine at HS ASA and Eliquis on hold 8. History of atrial fibrillation, rate controlled on amiodarone and Coreg and digoxin. Holding aspirin and Eliquis. Status post pacemaker. -- HR controlled continue Amiodarone, Coreg, Digoxin ASA and Eliquis on hold 9. Diabetes -- Placed on insulin sliding scale. 10. Coronary artery disease status post stent. -- no chest pain Holding aspirin. Continue Coreg with holding parameters. -- IMdur on hold 11. Hypothyroidism, on Synthroid. 12. History of bilateral lower extremity cellulitis. Recently had a course of Omnicef. Follow with wound care. 13. Ambulatory dysfunction. PT/OT when patient is stable. 14. Deep venous thrombosis prophylaxis. Holding Eliquis in light of possible GI bleed. Placed on sequential compression devices. Position Anticipate return to half-way facility when medically stable Subjective ff up for chf seen resting in bed, not in distress, appears tired but awake, alert was off o2, dyspneic, improved after 02 replaced reports she feels some SOB today denies chest pain no other symptoms Review of Systems Review of Systems: All systems reviewed & are unremarkable except as noted in HPI & below Physical Exam Physical Exam: General- oriented x 2, not in distress, speaks in sentences with no effort or accessory muscle use Eyes- anicteric Neck- no JVD Lungs- diminished breath sounds bilaterally no wheezing Heart- normal rate, regular rhythm; no murmurs Abdomen- normal bowel sounds, nondistended, soft, nontender Extremities- grade 1 lower leg edema, no calf tenderness Neuro- alert, oriented x 2; no gross focal neurologic deficits Skin- warm & dry Results & Data ([facility]) Vital Signs (Past 12 Hours) Vital Signs Temp Pulse Pulse Resp BP Pulse Ox 07/29/19 11:00 36.6 C 62 20 123/66 94 07/29/19 08:00 62 07/29/19 07:00 36.7 C 60 20 117/58 L 98 07/29/19 04:00 36.5 C 60 20 118/69 94 07/29/19 00:23 60 07/29/19 00:19 36.8 C 62 18 111/67 93 Laboratory Results Laboratory Results - last 24 hr 07/28/19 07/28/19 07/28/19 11:49 16:24 20:22 ABG pH ABG pCO2 ABG pO2 ABG HCO3 ABG O2 Saturation ABG Base Excess Wing Test Barometric Pressure Oxygen Given Sodium Potassium Chloride Carbon Dioxide Anion Gap BUN Creatinine Est Cr Clr Drug Dosing Est GFR ( Amer) Est GFR (Non-Af Amer) BUN/Creatinine Ratio Glucose POC Glucose 133 H 119 H 140 H Calcium 07/29/19 07/29/19 07/29/19 07:36 09:01 11:04 ABG pH 7.37 ABG pCO2 74 H ABG pO2 64 L ABG HCO3 42 H ABG O2 Saturation 89.3 L ABG Base Excess 14.4 H Wing Test Pos Barometric Pressure 721.0 Oxygen Given 3 L Sodium 142 Potassium 4.2 Chloride 97 L Carbon Dioxide 41 H* Anion Gap 4.0 BUN 62 H Creatinine 1.83 H Est Cr Clr Drug Dosing 32.1 Est GFR ( Amer) 30.7 Est GFR (Non-Af Amer) 26.5 BUN/Creatinine Ratio 33.6 H Glucose 119 H POC Glucose 114 H Calcium 9.3 (1) CHF (congestive heart failure) Heart failure chronicity: unspecified Heart failure type: unspecified Qualified Code(s): I50.9 - Heart failure, unspecified
[2019-07-29 12:24] LABS: Hematocrit (blood only) 29.5 % (37-47); Mean Corpuscular Hemoglobin 26.7 pg (25-34); Mean Corpuscular Hgb Conc 27.1 g/dL (32-36); Mean Corpuscular Volume 98.3 fL (80-100); Mean Platelet Volume 9.4 fL (7.4-10.4); Platelet Count 146 K/uL (130-400); RDW Coefficient of Variation 21.7 % (11.5-14.5); RDW Standard Deviation 77.1 fL (36.4-46.3); White Blood Count 5.98 K/uL (4.8-10.8)
[2019-07-29 12:46] LABS: Anisocytosis Present; Basophilic Stippling 1+; Basophils # (auto) 0.01 K/uL (0-0.2); Basophils % (auto) 0.2 %; Eosinophils # (auto) 0.11 K/uL (0-0.5); Eosinophils % (auto) 1.8 %; Hypochromasia Present; Immature Granulocytes # (auto) 0.01 K/uL (0.00-0.02); Immature Granulocytes % (auto) 0.2 %; Lymphocytes # (auto) 0.38 K/uL (1.2-3.4); Lymphocytes % (auto) 6.4 %; Monocytes % (auto) 6.7 %; Neutrophils # (auto) 5.07 K/uL (1.4-6.5); Neutrophils % (auto) 84.7 %
--- NOTE | 2019-07-29 13:03 | Ultrasound Report ---
ULTRASOUND PLEURAL SPACES CLINICAL HISTORY: Pleural effusion. COMPARISON STUDY: Chest x-ray dated 07/29/2019. FINDINGS: Real-time grayscale sonography of the pleural spaces is performed to assess pleural effusio ns. There are small left and moderate right pleural effusions with associated atelectasis. The left p leural effusion has an estimated volume of 533 mL, and the right pleural effusion has an estimated vo lume of 1709 mL. The right pleural effusion was marked for thoracentesis. IMPRESSION: Right larger than left pleural effusions as above. The right pleural effusion was marked for bedside thoracentesis. Note that the right pleural effusion was difficult to bucky due to mobility of the underlying lung parenchyma. Electronically signed by: Tae Bradshaw M.D. 07/29/2019 1:02 PM
[2019-07-29] MEDS: DOCUSATE SODIUM 100 MG CAP PO SCH (20:42)
[2019-07-30] MEDS: LEVOTHYROXINE SODIUM 75 MCG TABLET PO SCH (05:11)
[2019-07-30] MEDS: FUROSEMIDE 60 MG in SYRINGE 0 ML IV SCH ×2 (05:11→17:37)
[2019-07-30] MEDS: NYSTATIN POWDER 15GM BTL EXT SCH ×3 (07:47→21:05)
[2019-07-30] MEDS: AMIODARONE 200 MG TAB PO SCH (07:47)
[2019-07-30] MEDS: LACTOBACILLUS ACIDOPHILUS (FLORANEX) TAB PO SCH ×3 (07:47→21:05)
[2019-07-30] MEDS: POLYETHYLENE (MIRALAX) 17 GM PACK PO SCH (07:47)
[2019-07-30] MEDS: FERROUS SULFATE 325 MG TAB PO SCH ×2 (07:47→17:38)
[2019-07-30] MEDS: carvediloL 3.125 MG TAB PO SCH ×2 (07:47→21:05)
[2019-07-30] MEDS: GABAPENTIN 100 MG CAP PO SCH ×2 (07:48→21:05)
[2019-07-30] MEDS: CHOLECALCIFEROL 1,000 UNITS 25 MCG TAB PO SCH (07:48)
[2019-07-30] MEDS: PANTOprazole 40 MG TAB PO SCH ×2 (07:48→21:03)
[2019-07-30 08:17] LABS: Hematocrit (blood only) 28.2 % (37-47); Hemoglobin 7.8 g/dL (12.0-16.0); Mean Corpuscular Hgb Conc 27.7 g/dL (32-36); Mean Corpuscular Volume 97.6 fL (80-100); Mean Platelet Volume 8.9 fL (7.4-10.4); Platelet Count 139 K/uL (130-400); RDW Coefficient of Variation 21.5 % (11.5-14.5); RDW Standard Deviation 75.7 fL (36.4-46.3); Red Blood Count 2.89 M/uL (4.2-5.4); White Blood Count 5.52 K/uL (4.8-10.8)
[2019-07-30 08:29] LABS: BUN Creatinine Ratio 33.9 (10-20); Calcium 9.4 mg/dl (8.5-10.1); Creatinine Clr Calc Pharmacy 33.3 ml/min; Est GFR (African American) 32.7; Est GFR (Non-African American) 28.2
[2019-07-30 08:36] LABS: Anisocytosis Present; Basophilic Stippling 1+; Basophils # (auto) 0.02 K/uL (0-0.2); Basophils % (auto) 0.4 %; Eosinophils # (auto) 0.18 K/uL (0-0.5); Eosinophils % (auto) 3.3 %; Hypochromasia Present; Lymphocytes # (auto) 0.43 K/uL (1.2-3.4); Lymphocytes % (auto) 7.8 %; Monocytes # (auto) 0.43 K/uL (0.11-0.59); Monocytes % (auto) 7.8 %; Neutrophils # (auto) 4.46 K/uL (1.4-6.5); Neutrophils % (auto) 80.7 %; Stomatocytes 1+
[2019-07-30] MEDS: INSULIN ASPART 100 UNITS/ML 3 ML PEN SC SCH ×4 (09:09→21:42)
--- NOTE | 2019-07-30 09:11 | Nephrology Progress Note ---
Date of Service July 30, 2019 Assessment & Plan (1) Anemia of chronic disease: Hgb 7.8 today; no transfusions needed this admission -daily hgb -will check transferrin satn in am -cont po iron -no nsaids apart from ASA 81 mg now or at d/c -will refer to anemia clinic at hospital d/c (2) CKD (chronic kidney disease), stage IV: nonoliguric JASON on CKD4 w/ baseline creatinine 1.6-1.9; presenting creatinine 2.4; not oliguric. suspect ischemic atn related to hemodynamic changes w/ vol OL/ diastolic heart failure provoked by nsaids. diuresing her aggressively; tolerating but nearing limit; creat at baseline now -Will continue Lasix IV 60 mg twice daily. -avoid nephrotoxins unless lifesaving -no nsaids> should be on d/c paperwork she should not have nsaids in excess of ASA 81 mg daily (3) Pleural effusion, bilateral: agree w/ pulm eval. doubt diuretics will clear/significantly improve volume of these; hypoxemia on ABG noted. -f/u pulm recs -cont diuresis for now; nearing limits -cont Na and fluid limits Present on Admission?: Yes Subjective no complaints; feels breathing at baseline; worried about d/c dispo, wants [facility]. no pain, no edema. tolerating yun; for pulm eval today, ? thoracentesis candidate Review of Systems Review of Systems: All systems reviewed & are unremarkable except as noted in HPI & below Physical Exam Constitutional: well developed, + obese, cooperative and comfortable (on 3LNC, cognitive challenges; sitting up in bed) Eyes: EOM intact bilaterally ENMT: Ears: no external ear abnormality Nose: no external nose abnormality Mouth: + dry oral mucous membranes Neck: no nuchal rigidity Respiratory: normal respiratory effort Auscultation: + breath sounds absent (bl bases) and + diminished lung sounds Cardiovascular: RRR, no murmur, no edema Rate/Rhythm: regular rate and regular rhythm Extremities: + edema (at most trace BLE) Gastrointestinal (Abdomen): Inspection/Auscultation: normal bowel sounds Percussion/Palpation: abdomen soft; abdomen nontender Musculoskeletal: Extremities: strength 5/5 throughout Skin: no rashes, warm and dry Psychiatric: Orientation: oriented to person and oriented to place Eye Contact: + fair eye contact Affect: + flat affect Genitourinary: yun w/ ample yellow urine Results & Data Vital Signs (Past 12 Hours) Vital Signs Temp Pulse Pulse Resp BP Pulse Ox 07/30/19 07:00 36.4 C L 60 20 126/69 92 07/30/19 03:43 36.6 C 59 L 18 125/66 94 07/29/19 23:45 36.5 C 62 20 101/58 L 95 07/29/19 23:01 60 Laboratory Results 07/30/19 07:33 07/30/19 07:33
--- NOTE | 2019-07-30 09:30 | Hospitalist Progress Note ---
Date of Service July 30, 2019 Assessment & Plan (1) CHF (congestive heart failure): ASSESSMENT AND PLAN: This is a 73-year-old female, [facility] resident, history of chronic kidney disease stage III to IV, history of hyperkalemia in the past, history of paroxysmal atrial fibrillation, history of diastolic congestive heart failure, diabetes, hypertension, history of chronic lower extremity wounds, who presents with acute respiratory distress secondary to congestive heart failure and found to have acute kidney injury and hyperkalemia and also GI bleed and hypoglycemia and hypothermia. 1. Acute on chronic respiratory failure. [id number] diastolic congestive heart failure, on Lasix 20 mg b.i.d. -- weaned off Bipap, now on nasal cannula 2 to 3 L -- reports dyspnea today cxr 07/29: 1. Cardiomegaly and AICD with evidence of congestive failure and interstitial edema. This is unchanged from yesterday. 2. Layering pleural effusions with bibasilar consolidation continue Lasix 60mg IV q12h -- check Chest US: R 1.7 Liter, L 500cc reconsulted Pulm for possible Thora called son to update, no answer, left voicemail -- Nephro on board 2. History of systolic congestive heart failure in the past with EF of 20% to 25%, status post automatic implantable cardioverter defibrillator, but last echo EF improved. -- echo: Normal left ventricular systolic function, moderate concentric left ventricular hypertrophy, mild to moderate mitral anticonstipation Social Media Sr Strategy Manager consulted continue Carvedilol, Digoxin HOLD Imdur to prevent hypotension -- Lasix as noted above 3. Hyperkalemia. The patient has history of hyperkalemia in the past, last admission it was thought to be from the Bactrim. Presents with potassium of 6.2. -- Gerontological Nurse Practitioner consulted s/p HD 07/25/19 K improved monitor 4. Acute kidney injury on chronic kidney disease stage III to IV, baseline creatinine of 1.5, presently creatinine of 2.4, could be cardiorenal. -- Gerontological Nurse Practitioner consulted crea 2.4 to 1.7 hold off HD for now monitor 5. Hypoglycemia. -- BSGs improved 6. Hypothermia, could be from congestive heart failure and hypoglycemia. -- resolved 7. Gastrointestinal bleed, black stools and Hemoccult positive. -- Hg 7.8 today -- GI consulted monitor H&H for now Protonix drip discontinued, now on Famotidine at HS ASA and Eliquis on hold 8. History of atrial fibrillation, rate controlled on amiodarone and Coreg and digoxin. Holding aspirin and Eliquis. Status post pacemaker. -- HR controlled continue Amiodarone, Coreg, Digoxin ASA and Eliquis on hold 9. Diabetes -- Placed on insulin sliding scale. 10. Coronary artery disease status post stent. -- no chest pain Holding aspirin. Continue Coreg with holding parameters. -- IMdur on hold 11. Hypothyroidism, on Synthroid. 12. History of bilateral lower extremity cellulitis. Recently had a course of Omnicef. Follow with wound care. 13. Ambulatory dysfunction. PT/OT when patient is stable. 14. Deep venous thrombosis prophylaxis. Holding Eliquis in light of possible GI bleed. Placed on sequential compression devices. Position Anticipate return to group home facility when medically stable Subjective ff up for CHF seen resting in bed comfortable alert, oriented states she wants to sit on the chair today denies shortness of breath no chest pain no other symptoms Review of Systems Review of Systems: All systems reviewed & are unremarkable except as noted in HPI & below Physical Exam Physical Exam: General- oriented x 2, not in distress, speaks in sentences with no effort or accessory muscle use Eyes- anicteric Neck- no JVD mild hematoma from central line Lungs- diminished breath sounds bilaterally Heart- normal rate, regular rhythm; no murmurs Abdomen- normal bowel sounds, nondistended, soft, nontender Extremities- mild lower leg edema, no calf tenderness Neuro- alert, oriented x 2; no gross focal neurologic deficits Skin- warm & dry Results & Data ([facility]) Vital Signs (Past 12 Hours) Vital Signs Temp Pulse Pulse Resp BP Pulse Ox 07/30/19 08:00 60 07/30/19 07:00 36.4 C L 60 20 126/69 92 07/30/19 03:43 36.6 C 59 L 18 125/66 94 07/29/19 23:45 36.5 C 62 20 101/58 L 95 07/29/19 23:01 60 Laboratory Results Laboratory Results - last 24 hr 07/29/19 07/29/19 07/29/19 08:59 09:01 11:04 WBC 5.98 RBC 3.00 L Hgb 8.0 L Hct 29.5 L MCV 98.3 MCH 26.7 MCHC 27.1 L RDW Std Deviation 77.1 H RDW Coeff of Gerardo 21.7 H Plt Count 146 MPV 9.4 Immature Gran % (Auto) 0.2 Neut % (Auto) 84.7 Lymph % (Auto) 6.4 Troup % (Auto) 6.7 Eos % (Auto) 1.8 Baso % (Auto) 0.2 Immature Gran # (Auto) 0.01 Neut # (Auto) 5.07 Lymph # (Auto) 0.38 L Troup # (Auto) 0.40 Eos # (Auto) 0.11 Baso # (Auto) 0.01 Hypochromasia Present Basophilic Stippling 1+ Anisocytosis Present Stomatocytes ABG pH 7.37 ABG pCO2 74 H ABG pO2 64 L ABG HCO3 42 H ABG O2 Saturation 89.3 L ABG Base Excess 14.4 H Wing Test Pos Barometric Pressure 721.0 Oxygen Given 3 L Sodium 142 Potassium 4.2 Chloride 97 L Carbon Dioxide 41 H* Anion Gap 4.0 BUN 62 H Creatinine 1.83 H Est Cr Clr Drug Dosing 32.1 Est GFR ( Amer) 30.7 Est GFR (Non-Af Amer) 26.5 BUN/Creatinine Ratio 33.6 H Glucose 119 H POC Glucose Calcium 9.3 07/29/19 07/29/19 07/29/19 11:30 16:43 20:52 WBC RBC Hgb Hct MCV MCH MCHC RDW Std Deviation RDW Coeff of Gerardo Plt Count MPV Immature Gran % (Auto) Neut % (Auto) Lymph % (Auto) Troup % (Auto) Eos % (Auto) Baso % (Auto) Immature Gran # (Auto) Neut # (Auto) Lymph # (Auto) Troup # (Auto) Eos # (Auto) Baso # (Auto) Hypochromasia Basophilic Stippling Anisocytosis Stomatocytes ABG pH ABG pCO2 ABG pO2 ABG HCO3 ABG O2 Saturation ABG Base Excess Wing Test Barometric Pressure Oxygen Given Sodium Potassium Chloride Carbon Dioxide Anion Gap BUN Creatinine Est Cr Clr Drug Dosing Est GFR ( Amer) Est GFR (Non-Af Amer) BUN/Creatinine Ratio Glucose POC Glucose 125 H 100 H 259 H Calcium 07/30/19 07/30/19 07/30/19 07:33 07:33 07:39 WBC 5.52 RBC 2.89 L Hgb 7.8 L Hct 28.2 L MCV 97.6 MCH 27.0 MCHC 27.7 L RDW Std Deviation 75.7 H RDW Coeff of Gerardo 21.5 H Plt Count 139 MPV 8.9 Immature Gran % (Auto) 0.0 Neut % (Auto) 80.7 Lymph % (Auto) 7.8 Troup % (Auto) 7.8 Eos % (Auto) 3.3 Baso % (Auto) 0.4 Immature Gran # (Auto) 0.00 Neut # (Auto) 4.46 Lymph # (Auto) 0.43 L Troup # (Auto) 0.43 Eos # (Auto) 0.18 Baso # (Auto) 0.02 Hypochromasia Present Basophilic Stippling 1+ Anisocytosis Present Stomatocytes 1+ ABG pH ABG pCO2 ABG pO2 ABG HCO3 ABG O2 Saturation ABG Base Excess Wing Test Barometric Pressure Oxygen Given Sodium 141 Potassium 4.0 Chloride 97 L Carbon Dioxide 40 H Anion Gap 4.0 BUN 59 H Creatinine 1.74 H Est Cr Clr Drug Dosing 33.3 Est GFR ( Amer) 32.7 Est GFR (Non-Af Amer) 28.2 BUN/Creatinine Ratio 33.9 H Glucose 94 POC Glucose 104 H Calcium 9.4 (1) CHF (congestive heart failure) Heart failure chronicity: unspecified Heart failure type: unspecified Qualified Code(s): I50.9 - Heart failure, unspecified
--- NOTE | 2019-07-30 10:05 | Cardiology Progress Note ---
Date of Service July 30, 2019 Assessment & Plan (1) CHF (congestive heart failure): She remains on intravenous Lasix. Carvedilol continues at low dose. Bilateral pleural effusions noted on her chest x-ray yesterday. (2) Acute kidney injury: Per Dr. Nova. (3) HTN (hypertension): Adequate control. (4) Presence of biventricular AICD: Single-chamber ICD originally placed in February 2015. Upgraded to a biventricular device in October 2016. (5) Paroxysmal atrial fibrillation: Appropriate atrio-ventricular pacing. Continue amiodarone. Restart Eliquis prior to discharge. (6) CAD, multiple vessel: Quiescent on current medical regimen. Subjective The patient is resting comfortably in bed without complaints of chest pain or dyspnea. She is anxious for hospital discharge. Physical Exam Physical Exam: In general this is an obese white female seated in a wheelchair without complaints. HEENT exam is negative. Neck is supple with full carotid upstrokes. There are no carotid bruits. No JVD. There is no thyromegaly. Cardiovascular exam reveals an irregular rhythm with distant heart sounds. No obvious murmurs. No S3. Lungs note decreased breath sounds at the bases, but no rales, rhonchi, or wheezes. Abdomen is obese without bruits. Extremities reveal intact radial artery pulses bilaterally. 1+ pretibial edema is noted bilaterally with chronic venous stasis changes. Results & Data Vital Signs (Past 12 Hours) Vital Signs Temp Pulse Pulse Resp BP Pulse Ox 07/30/19 08:00 60 07/30/19 07:00 36.4 C L 60 20 126/69 92 07/30/19 03:43 36.6 C 59 L 18 125/66 94 07/29/19 23:45 36.5 C 62 20 101/58 L 95 07/29/19 23:01 60 PG Care Time/CCT Total # of Minutes Spent Total Time Spent with Patient: Total time spent is greater than 50% in coordination of care (as documented) at patient's floor/unit and/or counseling patient: Coding Level of Care Code 12372 Subseq Hosp Care Lvl 3 Diagnoses CHF (congestive heart failure) I50.9 Heart failure chronicity: unspecified Heart failure type: unspecified Acute kidney injury N17.9 HTN (hypertension) I10 Hypertension type: essential hypertension Presence of biventricular AICD Z95.810 Paroxysmal atrial fibrillation I48.0 CAD, multiple vessel I25.10 (1) CHF (congestive heart failure) Heart failure chronicity: unspecified Heart failure type: unspecified Qualified Code(s): I50.9 - Heart failure, unspecified (2) HTN (hypertension) Hypertension type: essential hypertension Qualified Code(s): I10 - Essential (primary) hypertension
--- NOTE | 2019-07-30 13:39 | Pulmonology Progress Note ---
Date of Service July 30, 2019 Assessment & Plan (1) Pleural effusion, bilateral: Bilateral pleural effusions which appear to be worsening compared to previous chest x-ray Currently receiving furosemide 60 mg IV twice daily Current cumulative fluid balance is -9.5 L since admission Thoracic ultrasound yesterday with estimated volume of 500+ on the left side and 1700 on the right side Patient currently is not on any anticoagulant or antiplatelet agent Discussed possibility of thoracentesis with patient and she defers to her son Aime for discussion Will try to get in contact with the son and will consider thoracentesis at that time (2) Acute on chronic respiratory failure with hypoxemia: Patient chronically on 2 L/min of supplemental oxygen at home via nasal cannula Currently requiring 3 L/min Titrate SaO2 to 88 to 92% Patient also with acute on chronic systolic CHF Continue diuresis as tolerated Palliative care following (3) Paroxysmal atrial fibrillation: Continue amiodarone and digoxin Patient previously was on apixaban. This is been held secondary to positive fecal occult blood testing Thank you for including us in the care of this patient. We will discuss possibility of thoracentesis with the patient's son and will have further d iscussion with the patient Please refer to Dr. Yeung's addendum for further recommendations and corrections. Supervising Physician Co-Signing Physician Notes Patient seen and examined with Tae grey PA-C. I agree with his assessment and plan aside for any additions/exceptions noted: The patient has numerous comorbidities including morbid obesity, coronary artery disease, atrial fibrillation and CKD. We were asked to evaluate for the need of a thoracentesis. I think at this time given that she seems to be improving with diuretic therapy and her creatinine is actually improving, I think that it is best to proceed conservatively with continued diuretic therapy. Certainly, if she develops larger effusions, respiratory failure or symptoms become refractory to the Lasix, we can consider thoracentesis at that time. Notably, she is quite large and has an elevated BUN which does predispose her to risk involved with the procedure. She also has significant intertrigo which can complicate things as this area of skin is overlying the potential area that is best suited for a thoracentesis. None of these things are an absolute contraindication, but in the face of her improving with Lasix, again I think it is best to proceed conservatively. Notably she is saturating 98% on room air. Pulmonary will continue to follow from a peripheral basis. Please call with questions. Subjective Attending: Dr. Yeung We are asked to see the patient in follow-up from the intensive care unit for persistent bilateral pleural effusions. The patient has congestive heart failure and while she is improving from a renal function with diuresis her pleural effusions have been stable but moderate to large on the right. Thoracic ultrasound was done yesterday and revealed an estimated volume of 533 mL on the left and 1790 mL on the right. Patient seen at bedside and is in no acute distress. She is chronically on 2 L of supplemental oxygen at home. Currently she is oxygenating 94% on 3 L at bedside via nasal cannula. She denies any chest pain or tightness. She does not notice any particular dyspnea other than her baseline. She denies any cough or sputum production. She has no fever or chills. She denies any other acute complaints at this time. Review of Systems Review of Systems: All systems reviewed & are unremarkable except as noted in HPI & below Physical Exam Physical Exam: GENERAL : No acute distress EYES: No icterus, gaze conjugate NOSE: No evidence of epistaxis. Nasal cannula is in place MOUTH: No lesions or candidiasis. Mucosa is moist NECK: Supple LUNGS: Decreased breath sounds globally. Certainly more decreased at the left base. No appreciation of bronchospasm or rhonchi. HEART: Regular, rate controlled ABDOMEN: Soft, NT, ND, BS Present EXTREMITIES: No LE edema, pedal pulses intact and equal bilaterally NEURO: A&OX3. Results & Data ([facility]) Vital Signs (Past 12 Hours) Vital Signs Temp Pulse Pulse Resp BP Pulse Ox 07/30/19 11:07 36.9 C 61 18 105/56 L 98 07/30/19 08:00 60 07/30/19 07:00 36.4 C L 60 20 126/69 92 07/30/19 03:43 36.6 C 59 L 18 125/66 94 Laboratory Results 07/30/19 07:33 07/30/19 07:33 Diagnostic Findings ULTRASOUND PLEURAL SPACES 07/29/2019 CLINICAL HISTORY: Pleural effusion. COMPARISON STUDY: Chest x-ray dated 07/29/2019. FINDINGS: Real-time grayscale sonography of the pleural spaces is performed to assess pleural effusions. There are small left and moderate right pleural effusions with associated atelectasis. The left pleural effusion has an estimated volume of 533 mL, and the right pleural effusion has an estimated volume of 1709 mL. The right pleural effusion was marked for thoracentesis. IMPRESSION: Right larger than left pleural effusions as above. The right pleural effusion was marked for bedside thoracentesis. Note that the right pleural effusion was difficult to bucky due to mobility of the underlying lung parenchyma. Electronically signed by: Tae Bradshaw M.D. 07/29/2019 1:02 PM SINGLE VIEW CHEST 07/29/2019 CLINICAL HISTORY: Follow-up congestive heart failure. FINDINGS: An AP, portable, upright chest radiograph is compared to study dated 07/27/2019. A 3-lead cardiac AICD is unchanged in position and partially obscures the left mid chest. The heart is enlarged noting atherosclerotic calcification of the thoracic aorta. There is pulmonary vascular congestion and interstitial edema. There are layering pleural effusions with bibasilar consolidation. No pneumothorax is seen. The skeletal structures are osteopenic. The bony thorax is grossly intact. IMPRESSION: 1. Cardiomegaly and AICD with evidence of congestive failure and interstitial edema. This is unchanged from yesterday. 2. Layering pleural effusions with bibasilar consolidation ACT 112: Negative or not required by law. Electronically signed by: Tae Bradshaw M.D. 07/29/2019 11:40 AM PG Care Time/CCT Total # of Minutes Spent Total Time Spent with Patient: Total time spent is greater than 50% in coordination of care (as documented) at patient's floor/unit and/or counseling patient: 25 minutes [place] [address] Subseq Hosp Care Lvl 2 Patient Type Established Medical Decision Making Low Complexity Diagnoses Pleural effusion, bilateral J90 Acute on chronic respiratory failure with hypoxemia J96.21 Paroxysmal atrial fibrillation I48.0
--- NOTE | 2019-07-30 15:19 | Palliative Care Progress Note ---
Date of Service July 30, 2019 Assessment & Plan (1) Goals of care, counseling/discussion: -73 year old female patient with PMH coronary artery disease status post PTCI with MIL placement, A. tucker currently on amiodarone, digoxin, and Eliquis with AICD placement, hypertension, hyperlipidemia, peripheral vascular disease, CHF, chronic respiratory failure, anemia, CKD 4, diabetes, and recurrent venous stasis ulcers with peripheral vascular disease, presented to the hospital last evening from [facility] with c/o altered mental status, hypoxia, and hypoglycemia. Patient was placed on bipap in ED. CXR showed signs of volume overload, she was given IV Lasix. Patient's potassium has continued to rise despite the Lasix and insulin/dextrose. Patient is nonoliguric, but again she fluid overloaded and the potassium continues to rise. Patient underwent temporary dialysis catheter placement and was dialyzed. Catheter removed , K+ this am 4.0. Patient had positive fecal occult blood test, GI is consulted. Upon admission to ICU, code status was discussed with patient. She was oriented at the time and stated that she did not want mechanical ventilation, but did want CPR and full treatment otherwise. Patient has a POLST form that also states she does want CPR, as well as limited additional interventions, abx for infection, and no artificial hydration/nutrition. Palliative care is consulted to discuss goals of care. -At patient's baseline, she does have some intellectual disability, but she is able to make her own decisions. Patient lives at the [facility]. Her son, Aime, is her POA. - Her current conditional code does coincide with the POLST form that she just completed on 07/01/2019. - Increasing pleural effusions - plans as per Pulm - Will cont to follow peripherally, will be available to assist with medical decision making (2) Acute renal failure superimposed on stage 4 chronic kidney disease: (3) Hyperkalemia: (4) Paroxysmal atrial fibrillation: Subjective Pt seen and examined, sitting in wheelchair at bedside. No family or friends present Chart reviewed - recent issues noted. Pt is awake, confused - asking to go to the "game room" to play games. Review of Systems Review of Systems: Denied pain, fever, CP, SOB or abd pain Physical Exam Physical Exam: HEENT: EOMI, mild [place] Resp: increased RR with speech, unlabored, on O2 via NC, diminished BS CV: irreg Abd: soft, NT, morbidly obese Ext: 1+ edema Skin: chronic skin changes c/w chronic edema Neuro: appears more confused than baseline, was not able to carry on a conversation Results & Data Vital Signs (Past 12 Hours) Vital Signs Temp Pulse Pulse Resp BP Pulse Ox 07/30/19 11:07 98.4 F 61 18 105/56 L 98 07/30/19 08:00 60 07/30/19 07:00 97.5 F L 60 20 126/69 92 07/30/19 03:43 97.9 F 59 L 18 125/66 94 PG Care Time/CCT Total # of Minutes Spent Total Time Spent with Patient: Total time spent 25 min with greater than 50% of time spent at bedside assessing pt's current status. Coding Level of Care Code 39264 Subseq Hosp Care Lvl 2 Diagnoses Goals of care, counseling/discussion Z71.89 Acute renal failure superimposed on stage 4 chronic kidney disease N17.9; N18.4 Acute renal failure type: unspecified Hyperkalemia E87.5 Paroxysmal atrial fibrillation I48.0 Time Spent (min) 25 (1) Acute renal failure superimposed on stage 4 chronic kidney disease Acute renal failure type: unspecified Qualified Code(s): N17.9 - Acute kidney failure, unspecified; N18.4 - Chronic kidney disease, stage 4 (severe)
[2019-07-30] MEDS: DIGOXIN 0.125 MG TAB PO SCH (16:11)
[2019-07-30] MEDS: DOCUSATE SODIUM 100 MG CAP PO SCH (21:10)
[2019-07-31] MEDS ORDERED: TRAMADOL HCL 50 MG TABLET PO PRN (01:21)
[2019-07-31] MEDS ORDERED: HYDROmorphone INJ 0.5 MG/0.5 ML SYR IV PRN (01:21)
[2019-07-31] MEDS ORDERED: ACETAMINOPHEN 325 MG TAB PO PRN (01:21)
[2019-07-31] MEDS: FUROSEMIDE 60 MG in SYRINGE 0 ML IV SCH (05:40)
[2019-07-31] MEDS: LEVOTHYROXINE SODIUM 75 MCG TABLET PO SCH (05:41)
[2019-07-31 06:31] LABS: Hematocrit (blood only) 29.9 % (37-47); Hemoglobin 8.2 g/dL (12.0-16.0); Mean Corpuscular Hemoglobin 26.9 pg (25-34); Mean Corpuscular Hgb Conc 27.4 g/dL (32-36); Platelet Count 151 K/uL (130-400); RDW Coefficient of Variation 21.2 % (11.5-14.5); RDW Standard Deviation 75.6 fL (36.4-46.3); Red Blood Count 3.05 M/uL (4.2-5.4); White Blood Count 5.49 K/uL (4.8-10.8)
[2019-07-31 07:09] LABS: Anisocytosis Present; Basophils # (auto) 0.02 K/uL (0-0.2); Basophils % (auto) 0.4 %; Eosinophils % (auto) 3.6 %; Immature Granulocytes # (auto) 0.01 K/uL (0.00-0.02); Immature Granulocytes % (auto) 0.2 %; Lymphocytes % (auto) 5.5 %; Monocytes # (auto) 0.52 K/uL (0.11-0.59); Monocytes % (auto) 9.5 %; Neutrophils # (auto) 4.44 K/uL (1.4-6.5); Neutrophils % (auto) 80.8 %; Polychromasia 1+; Stomatocytes 1+
[2019-07-31 07:19] LABS: BUN Creatinine Ratio 31.9 (10-20); Calcium 9.5 mg/dl (8.5-10.1); Creatinine Clr Calc Pharmacy 31.8 ml/min; Est GFR (Non-African American) 27.6
[2019-07-31] MEDS: FERROUS SULFATE 325 MG TAB PO SCH ×2 (08:45→17:28)
[2019-07-31] MEDS: INSULIN ASPART 100 UNITS/ML 3 ML PEN SC SCH ×4 (08:45→20:25)
[2019-07-31] MEDS: carvediloL 3.125 MG TAB PO SCH ×2 (08:46→20:10)
[2019-07-31] MEDS: NYSTATIN POWDER 15GM BTL EXT SCH ×3 (08:46→20:11)
[2019-07-31] MEDS: LACTOBACILLUS ACIDOPHILUS (FLORANEX) TAB PO SCH ×3 (08:46→20:10)
[2019-07-31] MEDS: GABAPENTIN 100 MG CAP PO SCH ×2 (08:46→20:08)
[2019-07-31] MEDS: AMIODARONE 200 MG TAB PO SCH (08:46)
[2019-07-31] MEDS: CHOLECALCIFEROL 1,000 UNITS 25 MCG TAB PO SCH (08:46)
[2019-07-31] MEDS: PANTOprazole 40 MG TAB PO SCH ×2 (08:46→20:10)
--- NOTE | 2019-07-31 09:17 | Pulmonology Progress Note ---
Date of Service July 31, 2019 Assessment & Plan (1) Pleural effusion, bilateral: Recommend stopping the Lasix today and giving a dose of acetazolomide given her metabolic alkalosis. Also recommend starting her on BiPAP at night given that she has chronic hypercapnic respiratory failure. Recommend obtaining a chest x-ray tomorrow to follow-up on the interstitial edema and the pleural fluid. I did discuss these issues personally with the hospitalist. (2) Acute on chronic respiratory failure with hypoxemia: (3) Paroxysmal atrial fibrillation: Subjective Patient is laying in bed. She is drowsy. She denies any chest pain, fevers, chills or nausea. I did discuss the case with the bedside RN who did not note any significant issues overnight or this morning. She is trying to wean her oxygen. Physical Exam Physical Exam: GENERAL : No acute distress EYES: No icterus, gaze conjugate NOSE: No evidence of epistaxis. Nasal cannula is in place MOUTH: No lesions or candidiasis. Mucosa is moist NECK: Supple LUNGS: Crackles at the lung bases HEART: Regular, rate controlled ABDOMEN: Soft, NT, ND, BS Present Skin: Evidence of intertrigo EXTREMITIES: No LE edema, pedal pulses intact and equal bilaterally NEURO: A&OX3. Results & Data ([facility]) Vital Signs (Past 12 Hours) Vital Signs Temp Pulse Pulse Resp BP BP Pulse Ox 07/31/19 07:59 98.2 F 60 18 115/65 92 07/31/19 07:11 60 07/31/19 04:46 60 07/31/19 04:25 97.7 F 63 18 123/68 95 07/30/19 23:14 97.3 F L 61 18 112/71 95 PG Care Time/CCT Total # of Minutes Spent Total Time Spent with Patient: Total time spent is greater than 50% in coordination of care (as documented) at patient's floor/unit and/or counseling patient: Coding Level of Care Code 08348 Subseq Hosp Care Lvl 2 Diagnoses Pleural effusion, bilateral J90 Acute on chronic respiratory failure with hypoxemia J96.21 Paroxysmal atrial fibrillation I48.0
[2019-07-31] MEDS: ACETAZOLAMIDE IV SCH ×2 (10:00→20:14)
[2019-07-31] MEDS: IRON SUCROSE 200 MG in 0.9 % SODIUM CHLORIDE 100 ML IV SCH (10:02)
[2019-07-31] MEDS: POLYETHYLENE (MIRALAX) 17 GM PACK PO SCH (10:09)
--- NOTE | 2019-07-31 11:01 | Nephrology Progress Note ---
Date of Service July 31, 2019 Assessment & Plan (1) CKD (chronic kidney disease), stage IV: nonoliguric JASON on CKD4 w/ baseline creatinine 1.6-1.9; presenting creatinine 2.4; not oliguric. suspect ischemic atn related to hemodynamic changes w/ vol OL/ diastolic heart failure provoked by nsaids. diuresing her aggressively; tolerating but nearing limit; creat remains at baseline now -lasix 60 mg iv bid stopped d/t worsening alkalosis; changed to acetazolamide 200 mg IV bid for now -avoid nephrotoxins unless lifesaving -no nsaids> should be on d/c paperwork she should not have nsaids in excess of ASA 81 mg daily (2) Pleural effusion, bilateral: pulm following. doubt diuretics will clear/significantly improve volume of effusions despite our success at improving her respiratory status, her edema; hypoxemia on ABG noted. -f/u pulm recs -cont diuresis for now; remains near limits of what we can do w/ this clinically -cont Na and fluid limits -continue treatment of intertrigo <> a barrier/relative contraindication to tap (3) Anemia of chronic disease: Hgb 8.2 today; no transfusions needed this admission -daily hgb -low iron stores > started venofer 200 mg daily x 5 days -cont po iron -no nsaids apart from ASA 81 mg now or at d/c -will refer to anemia clinic at [facility]/c Subjective seen on rounds at 0900; no complaints of worsening breathing; no cough; no edema or leg pain; eating ok; Review of Systems Review of Systems: All systems reviewed & are unremarkable except as noted in HPI & below Physical Exam Constitutional: well developed, + obese, cooperative and comfortable (on 2LNC, cognitive challenges; sitting up in bed) Eyes: EOM intact bilaterally ENMT: Ears: no external ear abnormality Nose: no external nose abnormality Mouth: + dry oral mucous membranes Neck: no nuchal rigidity Respiratory: normal respiratory effort Auscultation: + breath sounds absent (bl bases) and + diminished lung sounds Cardiovascular: RRR, no murmur, no edema Rate/Rhythm: regular rate and regular rhythm Extremities: + edema (at most trace BLE) Gastrointestinal (Abdomen): Inspection/Auscultation: normal bowel sounds Percussion/Palpation: abdomen soft; abdomen nontender Musculoskeletal: Extremities: strength 5/5 throughout Skin: no rashes, warm and dry + wound (L pretibial, bandage not removed) Psychiatric: Orientation: oriented to person and oriented to place Eye Contact: + fair eye contact Affect: + flat affect Genitourinary: w/ yun Results & Data Vital Signs (Past 12 Hours) Vital Signs Temp Pulse Pulse Resp BP BP Pulse Ox 07/31/19 09:55 36.3 C L 62 18 124/68 92 07/31/19 07:59 36.8 C 60 18 115/65 92 07/31/19 07:11 60 07/31/19 04:46 60 07/31/19 04:25 36.5 C 63 18 123/68 95 07/30/19 23:14 36.3 C L 61 18 112/71 95 Laboratory Results 07/31/19 05:25 07/31/19 05:25
--- NOTE | 2019-07-31 17:28 | XRay Report ---
XR chest 1V portable HISTORY: ff up pleural effusion COMPARISON: Chest 07/29/2019. FINDINGS: Decrease in size in the trace bilateral pleural effusions. No pneumothorax. The heart remai ns mildly enlarged. Left-sided pacemaker/defibrillator is again noted. Perihilar interstitial and vas cular thickening has improved. This is consistent with mild pulmonary edema. IMPRESSION: Interval improvement in the mild pulmonary edema and trace bilateral pleural effusions. ACT 112: Negative or not required by law. Electronically signed by: Marquez Clark M.D. 07/31/2019 5:26 PM
[2019-07-31] MEDS: DOCUSATE SODIUM 100 MG CAP PO SCH (20:13)
--- NOTE | 2019-08-01 05:37 | Hospitalist Progress Note ---
Date of Service delayed entry dater of service 07/31/19 August 01, 2019 Assessment & Plan (1) CHF (congestive heart failure): ASSESSMENT AND PLAN: This is a 73-year-old female, [facility] resident, history of chronic kidney disease stage III to IV, history of hyperkalemia in the past, history of paroxysmal atrial fibrillation, history of diastolic congestive heart failure, diabetes, hypertension, history of chronic lower extremity wounds, who presents with acute respiratory distress secondary to congestive heart failure and found to have acute kidney injury and hyperkalemia and also GI bleed and hypoglycemia and hypothermia. 1. Acute on chronic respiratory failure. Hgdre-dx-tlycozn diastolic congestive heart failure, on Lasix 20 mg b.i.d. -- admitted initially to ICU was placed on Bipap, HD emergently performed due to volume overload and elevated potassium Lasix 80mg IV given, with good diuresis -- weaned off Bipap, now on nasal cannula 2 to 3 L, transferred to Telemetry unit -- maintained to Lasix 60mg IV q12h, with good diuresis -- still eported dyspnea 07/29/19 cxr: 1. Cardiomegaly and AICD with evidence of congestive failure and interstitial edema. This is unchanged from yesterday. 2. Layering pleural effusions with bibasilar consolidation -- Chest US: R 1.7 Liter, L 500cc reconsulted Pulm for possible Thoracentesis, not recommended at this time -- Nephro and Pulm on board Lasix IV held for now due to elevated HCO3, Acetazolamide ordered Pulm not recommending thoracentesis for now, Bipap while sleeping continue to monitor closely -- Palliative care team following as well 2. History of systolic congestive heart failure in the past with EF of 20% to 25%, status post automatic implantable cardioverter defibrillator, but last echo EF improved. -- echo: Normal left ventricular systolic function, moderate concentric left ventricular hypertrophy, mild to moderate mitral anticonstipation Telephone Solicitor consulted continue Carvedilol, Digoxin HOLD Imdur to prevent hypotension -- Lasix management as noted above 3. Hyperkalemia. The patient has history of hyperkalemia in the past, last admission it was thought to be from the Bactrim. Presents with potassium of 6.2. -- Director Business Development consulted s/p HD 07/25/19 K improved monitor 4. Acute kidney injury on chronic kidney disease stage III to IV, baseline creatinine of 1.5, presently creatinine of 2.4, could be cardiorenal. -- Director Business Development consulted crea 2.4 to 1.7 hold off HD for now per Nephro monitor 5. Hypoglycemia. -- BSGs improved 6. Hypothermia, could be from congestive heart failure and hypoglycemia. -- resolved 7. Gastrointestinal bleed, black stools and Hemoccult positive. -- Hg stable at ~8 -- GI consulted monitor H&H for now Protonix drip discontinued, now on Famotidine at HS ASA and Eliquis on hold--> discussed with Cardiology no melena/hematochezia noted if Hg remains stable, discuss with Cardiology if ASA and Eliquis may be resumed 8. History of atrial fibrillation, rate controlled on amiodarone and Coreg and digoxin. Holding aspirin and Eliquis. Status post pacemaker. -- HR controlled continue Amiodarone, Coreg, Digoxin ASA and Eliquis on hold as per above 9. Diabetes -- Placed on insulin sliding scale. 10. Coronary artery disease status post stent. -- no chest pain Holding aspirin. Continue Coreg with holding parameters. -- IMdur on hold 11. Hypothyroidism, on Synthroid. 12. History of bilateral lower extremity cellulitis. Recently had a course of Omnicef. Follow with wound care. 13. Ambulatory dysfunction. PT/OT when patient is stable. 14. Deep venous thrombosis prophylaxis. Holding Eliquis in light of possible GI bleed. Placed on sequential compression devices. Position Anticipate return to [facility] facility when medically stable Subjective ff up for CHF Diastoic, Pleural Effusion seen resting in chair, not in distress states she feels ok overall denies shortness of breath, chest pain, cough no other symptoms Review of Systems Review of Systems: All systems reviewed & are unremarkable except as noted in HPI & below Physical Exam Physical Exam: General- oriented x 2, not in distress, speaks in sentences with no effort or accessory muscle use Eyes- anicteric Neck- no JVD Lungs- decreased breath sounds right >left, mid-base no wheezing Heart- normal rate, regular rhythm; no murmurs Abdomen- normal bowel sounds, nondistended, soft, nontender Extremities- grade 1 lower leg edema, no calf tenderness Neuro- alert, oriented x 2; no gross focal neurologic deficits Skin- warm & dry Results & Data ([facility]) Vital Signs (Past 12 Hours) Vital Signs Temp Pulse Pulse Resp BP BP Pulse Ox 08/01/19 03:10 36.4 C L 60 20 109/61 96 08/01/19 00:15 60 07/31/19 23:57 36.3 C L 60 20 111/66 98 07/31/19 19:35 36.3 C L 60 20 111/65 100 Laboratory Results all noted and reviewed (1) CHF (congestive heart failure) Heart failure chronicity: unspecified Heart failure type: unspecified Qualified Code(s): I50.9 - Heart failure, unspecified
[2019-08-01] MEDS: LEVOTHYROXINE SODIUM 75 MCG TABLET PO SCH (05:38)
[2019-08-01 07:17] LABS: Hematocrit (blood only) 31.4 % (37-47); Hemoglobin 8.5 g/dL (12.0-16.0); Mean Corpuscular Hemoglobin 26.6 pg (25-34); Mean Corpuscular Hgb Conc 27.1 g/dL (32-36); Mean Corpuscular Volume 98.1 fL (80-100); Platelet Count 146 K/uL (130-400); RDW Standard Deviation 74.6 fL (36.4-46.3); White Blood Count 4.72 K/uL (4.8-10.8)
[2019-08-01 07:32] LABS: Anisocytosis Present; Basophils # (auto) 0.02 K/uL (0-0.2); Basophils % (auto) 0.4 %; Eosinophils # (auto) 0.26 K/uL (0-0.5); Eosinophils % (auto) 5.5 %; Hypochromasia Present; Immature Granulocytes # (auto) 0.01 K/uL (0.00-0.02); Immature Granulocytes % (auto) 0.2 %; Lymphocytes # (auto) 0.42 K/uL (1.2-3.4); Lymphocytes % (auto) 8.9 %; Monocytes # (auto) 0.32 K/uL (0.11-0.59); Monocytes % (auto) 6.8 %; Neutrophils # (auto) 3.69 K/uL (1.4-6.5); Neutrophils % (auto) 78.2 %; Stomatocytes 1+
[2019-08-01 07:42] LABS: BUN Creatinine Ratio 27.1 (10-20); Calcium 9.4 mg/dl (8.5-10.1); Creatinine Clr Calc Pharmacy 31.5 ml/min; Est GFR (African American) 31.6; Est GFR (Non-African American) 27.2
[2019-08-01] MEDS: carvediloL 3.125 MG TAB PO SCH ×2 (08:03→20:17)
[2019-08-01] MEDS: FERROUS SULFATE 325 MG TAB PO SCH ×2 (08:04→17:27)
[2019-08-01] MEDS: GABAPENTIN 100 MG CAP PO SCH ×2 (08:04→20:18)
[2019-08-01] MEDS: LACTOBACILLUS ACIDOPHILUS (FLORANEX) TAB PO SCH ×3 (08:05→20:17)
[2019-08-01] MEDS: AMIODARONE 200 MG TAB PO SCH (08:06)
[2019-08-01] MEDS: CHOLECALCIFEROL 1,000 UNITS 25 MCG TAB PO SCH (08:06)
[2019-08-01] MEDS: PANTOprazole 40 MG TAB PO SCH ×2 (08:07→20:18)
[2019-08-01] MEDS: INSULIN ASPART 100 UNITS/ML 3 ML PEN SC SCH ×4 (08:09→21:40)
[2019-08-01] MEDS: IRON SUCROSE 200 MG in 0.9 % SODIUM CHLORIDE 100 ML IV SCH (08:21)
[2019-08-01] MEDS: NYSTATIN POWDER 15GM BTL EXT SCH ×3 (08:21→20:18)
[2019-08-01] MEDS: ACETAZOLAMIDE IV SCH ×2 (08:21→20:36)
[2019-08-01] MEDS: POLYETHYLENE (MIRALAX) 17 GM PACK PO SCH (08:21)
[2019-08-01] MEDS ORDERED: ACETAMINOPHEN 325 MG TAB PO PRN (10:11)
[2019-08-01] MEDS: FUROSEMIDE 40 MG TAB PO SCH ×2 (10:49→17:27)
[2019-08-01 12:18] LABS: Base Excess VBG 16.1 mEq/L; HCO3 VBG 45 mmol/L; PCO2 VBG 83 mmHg (38-50); PO2 VBG 28 mmHg; pH VBG 7.35 (7.36-7.41)
[2019-08-01 12:22] LABS: Oxygen Saturation VBG < 60.0 %
[2019-08-01 12:59] LABS: Albumin Globulin Ratio 0.5 (0.9-2); Albumin Level 2.9 gm/dl (3.4-5.0); BUN Creatinine Ratio 25.9 (10-20); Bilirubin,Total 0.7 mg/dl (0.2-1); Calcium 9.6 mg/dl (8.5-10.1); Creatinine Clr Calc Pharmacy 30.1 ml/min; Est GFR (African American) 29.9; Est GFR (Non-African American) 25.8; Globulin 5.4 gm/dl (2.5-4.0); Magnesium 2.5 mg/dl (1.8-2.4); Phosphorus 3.4 mg/dl (2.5-4.9); Potassium 4.3 mmol/L (3.5-5.1); Total Protein 8.3 gm/dl (6.4-8.2)
--- NOTE | 2019-08-01 13:14 | Pulmonology Progress Note ---
Date of Service August 01, 2019 Assessment & Plan (1) Pleural effusion, bilateral: Patient responded well to Diamox. Alkalosis improved a bit. I did do a pleural ultrasound today which demonstrated minimal fluid on the left and a small amount of fluid on the right which is improved from the previous ultrasound that is documented in the EMR. Chest x-ray from 07/31/2019 also demonstrates significant improvement in the pulmonary edema and bilateral effusions noted previously. Recommend continued oral diuretic therapy. I would also strongly recommend BiPAP at night given her chronic hypercapnic respiratory failure. Pulmonary will sign off at this time. Please call us with questions. Thank you. (2) Acute on chronic respiratory failure with hypoxemia: (3) Paroxysmal atrial fibrillation: Subjective Patient is sitting in her wheelchair today. She denies any complaints. She notes that she feels much better today than she did the last couple days. Breathing is at baseline. No cough no fevers. Physical Exam Physical Exam: GENERAL : No acute distress EYES: No icterus, gaze conjugate NOSE: No evidence of epistaxis. Nasal cannula is in place MOUTH: No lesions or candidiasis. Mucosa is moist NECK: Supple LUNGS: Crackles at the lung bases HEART: Regular, rate controlled ABDOMEN: Soft, NT, ND, BS Present Skin: Evidence of intertrigo EXTREMITIES: No LE edema, pedal pulses intact and equal bilaterally NEURO: A&OX3. Results & Data ([facility]) Vital Signs (Past 12 Hours) Vital Signs Temp Pulse Resp BP BP Pulse Ox 08/01/19 11:19 97.7 F 120 H 20 111/65 98 08/01/19 08:03 62 115/64 08/01/19 07:16 97.5 F L 62 20 97/56 L 96 08/01/19 03:10 97.5 F L 60 20 109/61 96 labs and notes personally reviewed PG Care Time/CCT Total # of Minutes Spent Total Time Spent with Patient: Total time spent is greater than 50% in coordination of care (as documented) at patient's floor/unit and/or counseling patient: Coding Level of Care Code 31287 Subseq Hosp Care Lvl 2 Diagnoses Pleural effusion, bilateral J90 Acute on chronic respiratory failure with hypoxemia J96.21 Paroxysmal atrial fibrillation I48.0
[2019-08-01] MEDS: DIGOXIN 0.125 MG TAB PO SCH (17:26)
--- NOTE | 2019-08-01 19:10 | Nephrology Progress Note ---
Date of Service August 01, 2019 Assessment & Plan (1) CKD (chronic kidney disease), stage IV: nonoliguric JASON on CKD4 w/ baseline creatinine 1.6-1.9; presenting creatinine 2.4; not oliguric. suspect ischemic atn related to hemodynamic changes w/ vol OL/ diastolic heart failure provoked by nsaids. diuresing her aggressively; tolerating diuresis but nearing limits of this d/t alkalosis; creat remains at baseline now -lasix 60 mg iv bid stopped d/t worsening alkalosis; changed to acetazolamide 200 mg IV bid for now -avoid nephrotoxins unless lifesaving -no nsaids> should be on d/c paperwork she should not have nsaids in excess of ASA 81 mg daily (2) Pleural effusion, bilateral: pulm following. doubt diuretics will clear/significantly improve volume of effusions despite our success at improving her respiratory status, her edema; hypoxemia on ABG noted. -f/u pulm recs -cont diuresis for now; remains near limits of what we can do w/ this clinically -cont Na and fluid limits -continue treatment of intertrigo <> a barrier/relative contraindication to tap (3) Anemia of chronic disease: Hgb 8.5 today; no transfusions needed this admission -daily hgb -low iron stores > started venofer 200 mg daily x 5 days (done 08/05) -cont po iron -no nsaids apart from ASA 81 mg now or at d/c -will refer to anemia clinic at hospital d/c Subjective seen on rounds this am about 945; c/o being bored; misses activities at her facility; for yun removal today; no sob worse than baseline, no leg pain endorses poor appetite /po Review of Systems Review of Systems: All systems reviewed & are unremarkable except as noted in HPI & below Physical Exam Constitutional: well developed, + obese, cooperative and comfortable (on 2LNC, cognitive challenges; sitting up in bed) Eyes: EOM intact bilaterally ENMT: Ears: no external ear abnormality Nose: no external nose abnormality Mouth: + dry oral mucous membranes Neck: no nuchal rigidity Respiratory: normal respiratory effort Auscultation: + breath sounds absent (bl bases) and + diminished lung sounds Cardiovascular: RRR, no murmur, no edema Rate/Rhythm: regular rate and regular rhythm Gastrointestinal (Abdomen): Inspection/Auscultation: normal bowel sounds Percussion/Palpation: abdomen soft; abdomen nontender Musculoskeletal: Extremities: strength 5/5 throughout Skin: no rashes, warm and dry Psychiatric: Orientation: oriented to person and oriented to place Eye Contact: + fair eye contact Affect: + flat affect Genitourinary: yun w/ ample urine at my exam Results & Data Vital Signs (Past 12 Hours) Vital Signs Temp Pulse Pulse Resp BP BP Pulse Ox 08/01/19 17:26 68 08/01/19 15:31 36.5 C 122 H 16 117/49 L 97 08/01/19 11:19 36.5 C 120 H 20 111/65 98 08/01/19 08:03 62 115/64 08/01/19 07:16 36.4 C L 62 20 97/56 L 96 Laboratory Results 08/01/19 06:47 08/01/19 12:06
--- NOTE | 2019-08-01 19:34 | Hospitalist Progress Note ---
Date of Service August 01, 2019 Assessment & Plan (1) CHF (congestive heart failure): ASSESSMENT AND PLAN: This is a 73-year-old female, [facility] resident, history of chronic kidney disease stage III to IV, history of hyperkalemia in the past, history of paroxysmal atrial fibrillation, history of diastolic congestive heart failure, diabetes, hypertension, history of chronic lower extremity wounds, who presents with acute respiratory distress secondary to congestive heart failure and found to have acute kidney injury and hyperkalemia and also GI bleed and hypoglycemia and hypothermia. Acute on chronic respiratory failure. [id number] diastolic congestive heart failure Bilateral Pleural Effusions - admitted initially to ICU; was placed on Bipap, HD emergently performed due to volume overload and elevated potassium; Lasix 80mg IV given, with good diuresis. then weaned off Bipap, now on nasal cannula 2 to 3 L, transferred to Telemetry unit -pulmonary consult did not recommend thoracentesis (chest ultrasound estimates of Right side with 1.7 Liter, Left side with 500 cc) -History of systolic congestive heart failure in the past with EF of 20% to 25%, status post automatic implantable cardioverter defibrillator, but last echo EF improved. -recently was on Lasix 60 mg IV q12 hours, this is held because of contraction alkalosis -received oral Lasix on 08/01/2019 -nephrology continuing Diamox -patient does not appear to be adherent to BIPAP -continue Carvedilol, Digoxin -Imdur has been held prevent hypotension Hyperkalemia -admission potassium of 6.2 treated with dialysis on 07/25/19 Acute kidney injury on chronic kidney disease stage III to IV -trend renal function Hypoglycemia. Hypothermia -resolved issues Type 2 diabetes mellitus -on sliding scale insulin Coronary artery disease status post stent. History of atrial fibrillation -has pacemaker -rate controlled on amiodarone and Coreg and digoxin -aspirin and Eliquis has been held on this admission because of concern for gastrointestinal bleed concern for Gastrointestinal bleed -black stools and Hemoccult positive. -on this hospital stay the Hgb generally stable around 8 or slightly higher -may consider resuming ELIQUIS alone in future Hypothyroidism - on Synthroid. History of bilateral lower extremity cellulitis. -Recently had a course of Omnicef Ambulatory dysfunction -PT/OT Deep venous thrombosis prophylaxis. sequential compression devices. Subjective Patient is alert but generally medical doctor cannot describe her the current medical care. She is interrupting often and expressing how she missed her usual activities outside of the hospital. Patient appears to stable on nasal cannula 2 liters/min. She does not not listen to the medical therapy on treating the pleural effusions. she does not appear to be in pain. she does not have other physical complaints Review of Systems Review of Systems: All systems reviewed & are unremarkable except as noted in HPI & below Physical Exam Constitutional: WD/WN, vitals as above Eyes: PERRL, conjunctivae normal, anicteric sclerae EOM intact bilaterally ENMT: external ear and nose normal, oropharynx normal Neck: normal visual inspection Respiratory: normal respiratory effort Cardiovascular: Rate/Rhythm: + bradycardic Gastrointestinal (Abdomen): normal bowel sounds, soft, nontender, no hepatosplenomegaly Musculoskeletal: Head/Neck/Chest: normocephalic and head atraumatic Neurologic: PERRL, EOMI, accommodation nl, no face palsy, no dysarthria Psychiatric: Orientation: alert Results & Data ([facility]) Vital Signs (Past 12 Hours) Vital Signs Temp Pulse Pulse Resp BP BP Pulse Ox 08/01/19 19:24 36.6 C 59 L 18 122/64 94 08/01/19 17:26 68 08/01/19 15:31 36.5 C 122 H 16 117/49 L 97 08/01/19 11:19 36.5 C 120 H 20 111/65 98 08/01/19 08:03 62 115/64 (1) CHF (congestive heart failure) Heart failure chronicity: unspecified Heart failure type: unspecified Qualified Code(s): I50.9 - Heart failure, unspecified
[2019-08-01] MEDS: DOCUSATE SODIUM 100 MG CAP PO SCH (20:36)
[2019-08-02] MEDS: LEVOTHYROXINE SODIUM 75 MCG TABLET PO SCH (05:41)
[2019-08-02 06:58] LABS: Hematocrit (blood only) 29.8 % (37-47); Hemoglobin 8.2 g/dL (12.0-16.0); Mean Corpuscular Hemoglobin 27.1 pg (25-34); Mean Corpuscular Hgb Conc 27.5 g/dL (32-36); Mean Corpuscular Volume 98.3 fL (80-100); Mean Platelet Volume 8.8 fL (7.4-10.4); Platelet Count 151 K/uL (130-400); RDW Standard Deviation 74.7 fL (36.4-46.3); Red Blood Count 3.03 M/uL (4.2-5.4); White Blood Count 5.58 K/uL (4.8-10.8)
[2019-08-02 07:28] LABS: Anisocytosis Present; Basophils # (auto) 0.02 K/uL (0-0.2); Basophils % (auto) 0.4 %; Eosinophils % (auto) 5.4 %; Immature Granulocytes # (auto) 0.01 K/uL (0.00-0.02); Immature Granulocytes % (auto) 0.2 %; Lymphocytes # (auto) 0.35 K/uL (1.2-3.4); Lymphocytes % (auto) 6.3 %; Monocytes # (auto) 0.48 K/uL (0.11-0.59); Monocytes % (auto) 8.6 %; Neutrophils # (auto) 4.42 K/uL (1.4-6.5); Neutrophils % (auto) 79.1 %; Stomatocytes 1+
--- NOTE | 2019-08-02 07:30 | Nephrology Progress Note ---
Date of Service August 02, 2019 Assessment & Plan (1) CKD (chronic kidney disease), stage IV: nonoliguric JASON on CKD4 w/ baseline creatinine 1.6-1.9; presenting creatinine 2.4; not oliguric. Creatinine has been at baseline since July 29; suspect acute kidney injury caused by ischemic atn related to hemodynamic changes w/ vol OL/ diastolic heart failure provoked by nsaids. diuresing her aggressively; tolerating diuresis but nearing limits of this d/t alkalosis Follow-up pending chemistry from today -If bicarbonate remains greater than or equal to 40, continue acetazolamide 200 mg IV bid If bicarbonate under 40, recommend Lasix 40 mg p.o. twice daily 17 -Could be discharged on Lasix 40 mg p.o. twice daily -if for discharge, recommend weekly basic metabolic panel x2 weeks; we will contact her facility with follow-up CKD clinic visit planned approximately 2 to 4 weeks after discharge <<d/c instructions updated -avoid nephrotoxins unless lifesaving -no nsaids> should be on d/c paperwork she should not have nsaids in excess of ASA 81 mg daily will sign off; pls call if ? (2) Pleural effusion, bilateral: pulm following. These are longstanding and chronic. Doubt diuretics will clear/significantly improve volume of effusions despite our success at improving her respiratory status, her edema; hypoxemia on ABG noted. -f/u pulm recs -cont diuresis for now; remains near limits of what we can do w/ this clinically -cont Na and fluid limits -continue treatment of intertrigo <> a barrier/relative contraindication to tap (3) Anemia of chronic disease: Hgb 8.2 today; no transfusions needed this admission -daily hgb -low iron stores > started venofer 200 mg daily x 5 days (done 08/05) -cont po iron -no nsaids apart from ASA 81 mg now or at d/c -will refer to anemia clinic at hospital d/c<<d/c instructions updated Subjective Seen on rounds this evening at 1830. No complaints except of boredom and wanting to go back to facility with activities. Denies worsening shortness of breath, denies leg pain. Denies nausea vomiting Review of Systems Review of Systems: All systems reviewed & are unremarkable except as noted in HPI & below Genitourinary: + urinary incontinence; no dysuria and no difficulty urinating Physical Exam Constitutional: well developed, + obese, cooperative and comfortable (on 2LNC, cognitive challenges; sitting up in bed) Eyes: EOM intact bilaterally ENMT: Ears: no external ear abnormality Nose: no external nose abnormality Mouth: + dry oral mucous membranes Neck: no nuchal rigidity Respiratory: normal respiratory effort Auscultation: + breath sounds absent (bl bases) and + diminished lung sounds Cardiovascular: RRR, no murmur, no edema Rate/Rhythm: regular rate and regular rhythm Extremities: + edema (at most trace BLE) Gastrointestinal (Abdomen): Inspection/Auscultation: normal bowel sounds Percussion/Palpation: abdomen soft; abdomen nontender Musculoskeletal: Extremities: strength 5/5 throughout Skin: no rashes, warm and dry + wound (L pretibial, bandage not removed) Psychiatric: Orientation: oriented to person and oriented to place Eye Contact: + fair eye contact Affect: + flat affect Results & Data Vital Signs (Past 12 Hours) Vital Signs Temp Pulse Pulse Pulse Resp BP Pulse Ox 08/02/19 07:04 60 08/02/19 03:38 36.3 C L 60 18 108/66 96 08/01/19 23:43 36.2 C L 59 L 18 107/55 L 95 08/01/19 23:01 61 08/01/19 20:17 64 Laboratory Results 08/02/19 06:36
[2019-08-02 07:38] LABS: BUN Creatinine Ratio 25.7 (10-20); Calcium 9.4 mg/dl (8.5-10.1); Creatinine Clr Calc Pharmacy 29.7 ml/min; Est GFR (African American) 29.8; Est GFR (Non-African American) 25.7; Potassium 3.9 mmol/L (3.5-5.1)
[2019-08-02] MEDS: INSULIN ASPART 100 UNITS/ML 3 ML PEN SC SCH ×4 (09:34→22:25)
[2019-08-02] MEDS: FERROUS SULFATE 325 MG TAB PO SCH ×2 (09:35→17:25)
[2019-08-02] MEDS: carvediloL 3.125 MG TAB PO SCH ×2 (09:35→21:54)
[2019-08-02] MEDS: PANTOprazole 40 MG TAB PO SCH ×2 (09:35→21:54)
[2019-08-02] MEDS: GABAPENTIN 100 MG CAP PO SCH ×2 (09:36→21:54)
[2019-08-02] MEDS: CHOLECALCIFEROL 1,000 UNITS 25 MCG TAB PO SCH (09:36)
[2019-08-02] MEDS: NYSTATIN POWDER 15GM BTL EXT SCH ×3 (09:36→21:54)
[2019-08-02] MEDS: AMIODARONE 200 MG TAB PO SCH (09:36)
[2019-08-02] MEDS: LACTOBACILLUS ACIDOPHILUS (FLORANEX) TAB PO SCH ×3 (09:37→21:54)
[2019-08-02] MEDS: POLYETHYLENE (MIRALAX) 17 GM PACK PO SCH (11:06)
[2019-08-02] MEDS: ACETAZOLAMIDE IV SCH ×2 (11:06→21:58)
[2019-08-02] MEDS: IRON SUCROSE 200 MG in 0.9 % SODIUM CHLORIDE 100 ML IV SCH (11:06)
--- NOTE | 2019-08-02 14:24 | Hospitalist Progress Note ---
Date of Service August 02, 2019 Assessment & Plan (1) CHF (congestive heart failure): ASSESSMENT AND PLAN: This is a 73-year-old female, [facility] resident, history of chronic kidney disease stage III to IV, history of hyperkalemia in the past, history of paroxysmal atrial fibrillation, history of diastolic congestive heart failure, diabetes, hypertension, history of chronic lower extremity wounds, who presents with acute respiratory distress secondary to congestive heart failure and found to have acute kidney injury and hyperkalemia and also GI bleed and hypoglycemia and hypothermia. Acute on chronic respiratory failure. Gosyv-[id number] diastolic congestive heart failure Bilateral Pleural Effusions - admitted initially to ICU; was placed on Bipap, HD emergently performed due to volume overload and elevated potassium; Lasix 80mg IV given, with good diuresis. then weaned off Bipap, now on nasal cannula 2 to 3 L, transferred to Telemetry unit -pulmonary consult did not recommend thoracentesis (chest ultrasound estimates of Right side with 1.7 Liter, Left side with 500 cc) -History of systolic congestive heart failure in the past with EF of 20% to 25%, status post automatic implantable cardioverter defibrillator, but last echo EF improved. -recently was on Lasix 60 mg IV q12 hours, this is held because of contraction alkalosis -received oral Lasix on 08/01/2019 -nephrology continuing Diamox -08/02/2019 Patient was seen and examined at bedside. She was encouraged to use the BIPAP but she said she did not like to use it. No respiratory distress. Patient does not have acute complaints. Patient's nasal cannula down titrated to 1 liters/min and she is saturating at 94%. Serum bicarbonate is 41 and as per my discussions with nephrology, will continue the IV Diamox inpatient for now for diuresis and to avoid diuresis. But hospitalist also feels that pat of patient's elevated carbon dioxide also because of respiratory CO2 retention and patient not likely to be able to help herself by declining the BIPAP -continue Carvedilol, Digoxin -Imdur has been held prevent hypotension Hyperkalemia -admission potassium of 6.2 treated with dialysis on 07/25/19 Acute kidney injury on chronic kidney disease stage III to IV -monitoring renal function Hypoglycemia. Hypothermia -resolved issues Type 2 diabetes mellitus -on sliding scale insulin Coronary artery disease status post stent. History of atrial fibrillation concern for Gastrointestinal bleed -has pacemaker -rate controlled on amiodarone and Coreg and digoxin -aspirin and Eliquis has been held on this admission because of concern for gastrointestinal bleed -black stools and Hemoccult positive. -on this hospital stay the Hgb generally stable around 8 or slightly higher -resuming ELIQUIS 5 mg BID starting on 08/02/2019 without aspirin Hypothyroidism - on Synthroid. History of bilateral lower extremity cellulitis. -Recently had a course of Omnicef Ambulatory dysfunction -PT/OT Deep venous thrombosis prophylaxis. sequential compression devices. Subjective Patient was seen and examined at bedside. She was encouraged to use the BIPAP but she said she did not like to use it. No respiratory distress. Patient does not have acute complaints. Patient's nasal cannula down titrated to 1 liters/min and she is saturating at 94%. Serum bicarbonate is 41 and as per my discussions with nephrology, will continue the IV Diamox inpatient for now for diuresis and to avoid diuresis. But hospitalist also feels that pat of patient's elevated carbon dioxide also because of respiratory CO2 retention and patient not likely to be able to help herself by declining the BIPAP Review of Systems Review of Systems: All systems reviewed & are unremarkable except as noted in HPI & below Physical Exam Constitutional: WD/WN, vitals as above Eyes: PERRL, conjunctivae normal, anicteric sclerae EOM intact bilaterally ENMT: external ear and nose normal, oropharynx normal Neck: normal visual inspection Respiratory: normal respiratory effort Cardiovascular: Rate/Rhythm: + bradycardic Gastrointestinal (Abdomen): normal bowel sounds, soft, nontender, no hepatosplenomegaly Musculoskeletal: Head/Neck/Chest: normocephalic and head atraumatic Neurologic: PERRL, EOMI, accommodation nl, no face palsy, no dysarthria Psychiatric: Orientation: alert Results & Data ([facility]) Vital Signs (Past 12 Hours) Vital Signs Temp Pulse Pulse Resp BP BP Pulse Ox 08/02/19 11:12 36.7 C 64 18 98/55 L 94 08/02/19 10:42 94 08/02/19 09:30 66 99 08/02/19 07:45 36.5 C 59 L 18 107/64 93 08/02/19 07:04 60 08/02/19 03:38 36.3 C L 60 18 108/66 96 (1) CHF (congestive heart failure) Heart failure chronicity: unspecified Heart failure type: unspecified Qualified Code(s): I50.9 - Heart failure, unspecified
[2019-08-02] MEDS: APIXABAN 5 MG TABLET PO SCH (21:54)
[2019-08-02] MEDS: DOCUSATE SODIUM 100 MG CAP PO SCH (21:56)
[2019-08-03 03:29] VITALS: TEMP 98.2
[2019-08-03] MEDS: LEVOTHYROXINE SODIUM 75 MCG TABLET PO SCH (05:56)
[2019-08-03 06:57] LABS: Albumin Level 2.9 gm/dl (3.4-5.0); BUN Creatinine Ratio 23.3 (10-20); Calcium 9.4 mg/dl (8.5-10.1); Creatinine Clr Calc Pharmacy 29.1 ml/min; Potassium 3.7 mmol/L (3.5-5.1)
[2019-08-03 07:00] LABS: Albumin Globulin Ratio 0.6 (0.9-2); Bilirubin,Total 0.7 mg/dl (0.2-1); Total Protein 7.9 gm/dl (6.4-8.2)
[2019-08-03 08:01] VITALS: PULSE 64; O2SAT 98
[2019-08-03] MEDS ORDERED: FUROSEMIDE 40 MG TAB PO SCH (09:00)
[2019-08-03] MEDS: INSULIN ASPART 100 UNITS/ML 3 ML PEN SC SCH ×2 (09:02→13:50)
[2019-08-03] MEDS: CHOLECALCIFEROL 1,000 UNITS 25 MCG TAB PO SCH (09:02)
[2019-08-03] MEDS: PANTOprazole 40 MG TAB PO SCH (09:03)
[2019-08-03] MEDS: AMIODARONE 200 MG TAB PO SCH (09:04)
[2019-08-03] MEDS: carvediloL 3.125 MG TAB PO SCH (09:04)
[2019-08-03] MEDS: GABAPENTIN 100 MG CAP PO SCH (09:04)
[2019-08-03] MEDS: FERROUS SULFATE 325 MG TAB PO SCH (09:05)
[2019-08-03] MEDS: APIXABAN 5 MG TABLET PO SCH (09:05)
[2019-08-03] MEDS: LACTOBACILLUS ACIDOPHILUS (FLORANEX) TAB PO SCH (09:06)
[2019-08-03] MEDS: NYSTATIN POWDER 15GM BTL EXT SCH (09:08)
[2019-08-03] MEDS: IRON SUCROSE 200 MG in 0.9 % SODIUM CHLORIDE 100 ML IV SCH (10:47)
[2019-08-03] MEDS: POLYETHYLENE (MIRALAX) 17 GM PACK PO SCH (10:47)
[2019-08-03 12:07] VITALS: BP 117/67
--- NOTE | 2019-08-03 12:18 | Hospitalist Progress Note ---
Date of Service August 03, 2019 Assessment & Plan (1) CHF (congestive heart failure): This is a 73-year-old female, [facility] resident, history of chronic kidney disease stage III to IV, history of hyperkalemia in the past, history of paroxysmal atrial fibrillation, history of diastolic congestive heart failure, diabetes, hypertension, history of chronic lower extremity wounds, who presents with acute respiratory distress secondary to congestive heart failure and found to have acute kidney injury and hyperkalemia and also GI bleed and hypoglycemia and hypothermia. Acute on chronic respiratory failure. Denlb-zv-khymsfe diastolic congestive heart failure Bilateral Pleural Effusions - admitted initially to ICU; was placed on Bipap, HD emergently performed due to volume overload and elevated potassium; Lasix 80mg IV given, with good diuresis. then weaned off Bipap, now on nasal cannula 2 to 3 L, transferred to Telemetry unit -pulmonary consult did not recommend thoracentesis (chest ultrasound estimates of Right side with 1.7 Liter, Left side with 500 cc) -History of systolic congestive heart failure in the past with EF of 20% to 25%, status post automatic implantable cardioverter defibrillator, but last echo EF improved. -recently was on Lasix 60 mg IV q12 hours, this is held because of contraction alkalosis -received oral Lasix on 08/01/2019; nephrology continued trial of acetazolamide 200 mg IV bid -08/02/2019 Patient was seen and examined at bedside. She was encouraged to use the BIPAP but she said she did not like to use it. No respiratory distress. Patient does not have acute complaints. Patient's nasal cannula down titrated to 1 liters/min and she is saturating at 94%. Serum bicarbonate is 41 and as per discussions with nephrology, continue the IV acetazolamide 200 mg IV bid inpatient for now for diuresis and to avoid diuresis. But hospitalist also feels that pat of patient's elevated carbon dioxide also because of respiratory CO2 retention and patient not likely to be able to help herself by declining the BIPAP -continue Carvedilol, Digoxin -Imdur has been held prevent hypotension -08/03/2019: serum bicarbonate is 37 and acetazolamide 200 mg IV bid is stopped and transition to furosemide 40 mg BID and discharge as per nephrology directions Hyperkalemia -admission potassium of 6.2 treated with dialysis on 07/25/19 Acute kidney injury on chronic kidney disease stage III to IV -creatinine on 08/03/2019 is 1.92 -as per Dr. Abel nephrology discharge instructions "-weekly basic metabolic panel and hemoglobin x 2 weeks; with first weekly blood draw, will also get ferritin, transferrin saturation: Outpatient nephrology nurses will place these orders -Nephrology will refer to anemia clinic at hospital discharge" upcoming scheduled appointments 08/10/2019 11:40 AM Provider Lola Jean MD Department General Internal Medicine [facility] 08/20/2019 10:40 AM Provider Sabina Abel MD Department Nephrology, [facility] 09/25/2019 3:00 PM Provider Sabina Abel MD Department Nephrology, [facility] Hypoglycemia. Hypothermia -resolved issues Type 2 diabetes mellitus -patient's insulin requirements is much lower inpatient and only required sliding scale coverage. patient's scheduled insulin at home is to be stopped Hospital sliding scale with meals is based on Goal BSG Range: Low 140 mg/dL, High 180 mg/dL Correction Factor: 30 mg/dL/unit INS:CHO Ratio: 1unit per 10gms CHO consumed BSGs ACHS if eating, q6h if npo so will discharge on aspart 4 units with meals Coronary artery disease status post stent. History of atrial fibrillation concern for Gastrointestinal bleed -has pacemaker -rate controlled on amiodarone and Coreg and digoxin -aspirin and Eliquis has been held on this admission because of concern for gastrointestinal bleed -black stools and Hemoccult positive. -on this hospital stay the Hgb generally stable around 8 or slightly higher -resuming ELIQUIS 5 mg BID starting on 08/02/2019 without aspirin -pantoprazole 40 m daily (to prevent GI bleed, patient may continue Eliquis 5 mg BID at home but to avoid aspirin for now and to avoid all NSAIDs such as naproxen) Hypothyroidism - on Synthroid. History of bilateral lower extremity cellulitis. -Recently had a course of Omnicef Ambulatory dysfunction -PT/OT has evaluated the patient on this hospital stay Deep venous thrombosis prophylaxis. sequential compression devices. discharge to d/c back to [facility] discharge medications sent to [facility] [place] [id number] furosemide 40 mg BID because of pleural effusions despite less than ideal renal function carvedilol 3.125 mg BID (this is decreased dose compare to home dose carvedilol prior to hospital admission and isosorbide mononitrate also discontinued on this hospital stay to avoid low blood pressure) pantoprazole 40 m daily (to prevent GI bleed, patient may continue Eliquis 5 mg BID at home but to avoid aspirin for now and to avoid all NSAIDs such as naproxen) discontinued trazodone to avoid excessive sedation patient's insulin requirements is much lower inpatient and only required sliding scale coverage. patient's scheduled insulin at home is to be stopped Hospital sliding scale with meals is based on Goal BSG Range: Low 140 mg/dL, High 180 mg/dL Correction Factor: 30 mg/dL/unit INS:CHO Ratio: 1unit per 10gms CHO consumed BSGs ACHS if eating, q6h if npo so will discharge on aspart 4 units with meals Discharge Diagnosis Acute on chronic respiratory failure. [id number] diastolic congestive heart failure Bilateral Pleural Effusions Hyperkalemia (treated and resolved) Acute kidney injury on chronic kidney disease stage III to IV Type 2 diabetes mellitus with supervisor intermediates current use of insulin Subjective No acute events overnight. patient's serum bicarbonate decreased to 37. patient does not have chest pain or problems with breathing. no pain. patient was informed of discharge plans and she denied new symptoms and did not have new questions. Review of Systems Review of Systems: All systems reviewed & are unremarkable except as noted in HPI & below Physical Exam Constitutional: WD/WN, vitals as above Eyes: PERRL, conjunctivae normal, anicteric sclerae EOM intact bilaterally ENMT: external ear and nose normal, oropharynx normal Neck: normal visual inspection Respiratory: normal respiratory effort Cardiovascular: Rate/Rhythm: + bradycardic Gastrointestinal (Abdomen): normal bowel sounds, soft, nontender, no hepatosplenomegaly Musculoskeletal: Head/Neck/Chest: normocephalic and head atraumatic Neurologic: PERRL, EOMI, accommodation nl, no face palsy, no dysarthria Psychiatric: Orientation: alert Results & Data ([facility]) Vital Signs (Past 12 Hours) Vital Signs Temp Pulse Pulse Resp BP BP Pulse Ox 08/03/19 12:05 36.8 C 64 64 19 117/67 123/70 98 08/03/19 07:15 36.8 C 64 19 123/70 98 08/03/19 03:28 36.8 C 63 20 117/67 97 (1) CHF (congestive heart failure) Heart failure chronicity: unspecified Heart failure type: unspecified Qualified Code(s): I50.9 - Heart failure, unspecified
--- NOTE | 2019-08-03 12:26 | Discharge Summary ---
Date of Service August 03, 2019 Admission HPI Per Admitting Provider DATE OF ADMISSION: 07/24/2019 CHIEF COMPLAINT: Shortness of breath and lethargy. HISTORY OF PRESENT ILLNESS: This is a 73-year-old female with past medical history significant for COPD, chronic kidney disease stage III to IV, history of hyperkalemia in the past, history of lower extremity cellulitis, history of chronic diastolic CHF, history of systolic CHF with EF of 20% to 25% previously status post ICD, but on recent echo EF improved, CAD status post stenting, history of left bundle branch block, history of peripheral vascular disease, chronic respiratory failure, on oxygen 2-3 liters, history of AFib status post pacemaker, history of hypertension, diabetes, anemia of chronic kidney disease, ambulatory dysfunction, obesity, mild intellectual disability, depression. The patient is currently a resident of [facility]. She walks a little bit, but needs assistance. On soft diet. The patient was here in last week of May with JASON and hyperkalemia thought to be from the Bactrim, which was stopped and she was discharged on Omnicef for lower extremity infection. Seems to have completed that course. The patient today, as per nursing staff at [facility], was found to be lethargic and they could not bring her oxygen up, she was saturating only 70s and 80s percentage. She was brought in here and when she came in she was tachypneic. She was placed on BiPAP and a rectal temperature showed she was hypothermic, placed on Dhiraj Hugger, and her labs came back with a creatinine of 2.4 and potassium of 6.2 and glucose was only 47. Lactate was 1.1. BNP 2300. Urinalysis was fine. Chest x-ray showed CHF picture and she was given a dose of IV Lasix. EKG showed paced rhythm. She was saturating okay on BiPAP. Currently changed the BiPAP to nasal cannula as the patient is not tolerating it and monitoring on nasal cannula. Could not get much history from the patient. She denies any chest pain, no abdominal pain, no nausea, no cough, no fever, no headache. She was just saying to take the BiPAP off. I talked to the son and notified that she is getting admitted and she has a conditional code with only CPR, no intubation. In the ER, she has also had black stools and she was heme positive, but hemoglobin is 9.5. Her hemoglobin was 8.9 a few days back. At the time of discharge last admission, hb was 8.4. ALLERGIES: BACTRIM. PAST MEDICAL HISTORY: As mentioned above. PAST SURGICAL HISTORY: Status post ICD placement, cardiac catheterization, amputation of right toe, bilateral knee arthroplasty, excision of the left breast mass, colonoscopy, laparoscopic cholecystectomy. MEDICATIONS: Currently, the patient is on Tylenol 1000 mg p.o. q. 6 hours p.r.n., amiodarone 200 mg p.o. a.m., Eliquis 5 mg p.o. b.i.d., aspirin 81 mg p.o. daily, Dulcolax p.r.n., Coreg 6.25 mg p.o. b.i.d., vitamin D 2000 units p.o. a.m., digoxin 125 mcg p.o. q. 2 days, ferrous sulfate 325 mg p.o. b.i.d., Lasix 20 mg p.o. b.i.d., Neurontin 100 mg p.o. b.i.d., insulin aspart 70/30 of 48 units in the a.m. and 35 units in p.m., insulin aspart 4 units subcutaneous q. dinner and lunch, isosorbide mononitrate 30 mg p.o. a.m., lactobacillus 1 tablet p.o. t.i.d., levothyroxine 75 mcg p.o. daily, milk of magnesia 10 mL p.r.n., naproxen 500 mg p.o. b.i.d., MiraLax 17 grams p.o. daily, Senokot S 1 tablet p.o. b.i.d., enema p.r.n., trazodone 50 mg p.o. at bedtime. FAMILY HISTORY: Significant for mother had cancer and heart failure. SOCIAL HISTORY: Currently living at [facility]. No smoking, no alcohol, no drug use as per records. REVIEW OF SYSTEMS: As per HPI, could not get complete review of systems as the patient is in somewhat distress.Hx of mild intellectual disability. Admission Exam Per Admitting Provider GENERAL: The patient is alert and awake, on BiPAP. VITAL SIGNS: Temperature when she came in was 36.3, pulse 62, respiratory rate 17, blood pressure 123/58, oxygen 97% currently on 2 liters. HEENT: No pallor, no icterus. Pupils equal, round, reactive to light. NECK: No JVD, no neck masses, no carotid bruits. CARDIOVASCULAR: S1, S2 heard, regular rate and rhythm, no murmur, no gallop. RESPIRATORY SYSTEM: Normal AP diameter. Currently no accessory muscle use. No wheezing, bibasilar crackles. ABDOMEN: Soft, bowel sounds present. Nontender. CENTRAL NERVOUS SYSTEM: Alert and awake. Moves extremities. EXTREMITIES: Lower extremity chronic skin changes seen. Mild bilateral edema seen and mild erythema. Principal Diagnosis Acute on chronic respiratory failure. Ohbcm-rb-yoktkcp diastolic congestive heart failure Bilateral Pleural Effusions Hyperkalemia (treated and resolved) Acute kidney injury on chronic kidney disease stage III to IV Type 2 diabetes mellitus with mcfp current use of insulin Discharge Exam Constitutional WD/WN, vitals as above Eyes PERRL, conjunctivae normal, anicteric sclerae EOM intact bilaterally ENMT external ear and nose normal, oropharynx normal Neck normal visual inspection Respiratory normal respiratory effort Cardiovascular Rate/Rhythm: + bradycardic Gastrointestinal (Abdomen) normal bowel sounds, soft, nontender, no hepatosplenomegaly Musculoskeletal Head/Neck/Chest: normocephalic and head atraumatic Neurologic PERRL, EOMI, accommodation nl, no face palsy, no dysarthria Psychiatric Orientation: alert Discharge Data Allergies Allergy/AdvReac Type Severity Reaction Status Date / Time sulfamethoxazole AdvReac Intermediate hyperkalemi Verified 07/24/19 16:42 [From Bactrim] a trimethoprim [From Bactrim] AdvReac Intermediate hyperkalemi Verified 07/24/19 16:42 a Consultations 07/24/19 20:10 ED Decision to Admit Stat 07/25/19 00:32 Consult Case Management - Discharge Planning Routine 07/25/19 07:59 Consult Palliative Care Routine 07/25/19 08:00 Consult Cardiology Routine Consult Gastroenterology Routine Consult Nephrology Routine Ordered Studies 07/25/19 08:46 US point of care ultrasound Urgent 07/29/19 11:24 US effusion-chest/mediastinum Stat Hospital Course (1) CHF (congestive heart failure): This is a 73-year-old female, [facility] resident, history of chronic kidney disease stage III to IV, history of hyperkalemia in the past, history of paroxysmal atrial fibrillation, history of diastolic congestive heart failure, diabetes, hypertension, history of chronic lower extremity wounds, who presents with acute respiratory distress secondary to congestive heart failure and found to have acute kidney injury and hyperkalemia and also GI bleed and hypoglycemia and hypothermia. Acute on chronic respiratory failure. Jmygt-dt-kcokuzk diastolic congestive heart failure Bilateral Pleural Effusions - admitted initially to ICU; was placed on Bipap, HD emergently performed due to volume overload and elevated potassium; Lasix 80mg IV given, with good diuresis. then weaned off Bipap, now on nasal cannula 2 to 3 L, transferred to Telemetry unit -pulmonary consult did not recommend thoracentesis (chest ultrasound estimates of Right side with 1.7 Liter, Left side with 500 cc) -History of systolic congestive heart failure in the past with EF of 20% to 25%, status post automatic implantable cardioverter defibrillator, but last echo EF improved. -recently was on Lasix 60 mg IV q12 hours, this is held because of contraction alkalosis -received oral Lasix on 08/01/2019; nephrology continued trial of acetazolamide 200 mg IV bid -08/02/2019 Patient was seen and examined at bedside. She was encouraged to use the BIPAP but she said she did not like to use it. No respiratory distress. Patient does not have acute complaints. Patient's nasal cannula down titrated to 1 liters/min and she is saturating at 94%. Serum bicarbonate is 41 and as per discussions with nephrology, continue the IV acetazolamide 200 mg IV bid inpatient for now for diuresis and to avoid diuresis. But hospitalist also feels that pat of patient's elevated carbon dioxide also because of respiratory CO2 retention and patient not likely to be able to help herself by declining the BIPAP -continue Carvedilol, Digoxin -Imdur has been held prevent hypotension -08/03/2019: serum bicarbonate is 37 and acetazolamide 200 mg IV bid is stopped and transition to furosemide 40 mg BID and discharge as per nephrology directions Hyperkalemia -admission potassium of 6.2 treated with dialysis on 07/25/19 Acute kidney injury on chronic kidney disease stage III to IV -creatinine on 08/03/2019 is 1.92 -as per Dr. Abel nephrology discharge instructions "-weekly basic metabolic panel and hemoglobin x 2 weeks; with first weekly blood draw, will also get ferritin, transferrin saturation: Outpatient nephrology nurses will place these orders -Nephrology will refer to anemia clinic at hospital discharge" upcoming scheduled appointments 08/10/2019 11:40 AM Provider Lola Jean MD Department General Internal Medicine [facility] 08/20/2019 10:40 AM Provider Sabina Abel MD Department Nephrology, [facility] 09/25/2019 3:00 PM Provider Sabina Abel MD Department Nephrology, [facility] Hypoglycemia. Hypothermia -resolved issues Type 2 diabetes mellitus -patient's insulin requirements is much lower inpatient and only required sliding scale coverage. patient's scheduled insulin at home is to be stopped Hospital sliding scale with meals is based on Goal BSG Range: Low 140 mg/dL, High 180 mg/dL Correction Factor: 30 mg/dL/unit INS:CHO Ratio: 1unit per 10gms CHO consumed BSGs ACHS if eating, q6h if npo so will discharge on aspart 4 units with meals Coronary artery disease status post stent. History of atrial fibrillation concern for Gastrointestinal bleed -has pacemaker -rate controlled on amiodarone and Coreg and digoxin -aspirin and Eliquis has been held on this admission because of concern for gastrointestinal bleed -black stools and Hemoccult positive. -on this hospital stay the Hgb generally stable around 8 or slightly higher -resuming ELIQUIS 5 mg BID starting on 08/02/2019 without aspirin -pantoprazole 40 m daily (to prevent GI bleed, patient may continue Eliquis 5 mg BID at home but to avoid aspirin for now and to avoid all NSAIDs such as naproxen) Hypothyroidism - on Synthroid. History of bilateral lower extremity cellulitis. -Recently had a course of Omnicef Ambulatory dysfunction -PT/OT has evaluated the patient on this hospital stay Deep venous thrombosis prophylaxis. sequential compression devices. discharge to d/c back to [facility]/ [facility] discharge medications sent to [facility] [place] [id number] furosemide 40 mg BID because of pleural effusions despite less than ideal renal function carvedilol 3.125 mg BID (this is decreased dose compare to home dose carvedilol prior to hospital admission and isosorbide mononitrate also discontinued on this hospital stay to avoid low blood pressure) pantoprazole 40 m daily (to prevent GI bleed, patient may continue Eliquis 5 mg BID at home but to avoid aspirin for now and to avoid all NSAIDs such as napr oxen) discontinued trazodone to avoid excessive sedation patient's insulin requirements is much lower inpatient and only required sliding scale coverage. patient's scheduled insulin at home is to be stopped Hospital sliding scale with meals is based on Goal BSG Range: Low 140 mg/dL, High 180 mg/dL Correction Factor: 30 mg/dL/unit INS:CHO Ratio: 1unit per 10gms CHO consumed BSGs ACHS if eating, q6h if npo so will discharge on aspart 4 units with meals Discharge Diagnosis Acute on chronic respiratory failure. 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 Xayde-td-sysryhg diastolic congestive heart failure Bilateral Pleural Effusions Hyperkalemia (treated and resolved) Acute kidney injury on chronic kidney disease stage III to IV Type 2 diabetes mellitus with director long term care current use of insulin Condition on Discharge: Fair Activity: Per Instructions section Non-emergency contact: Primary Care Provider and Technical Testing Engineer Call non-emergency contact if: you have any medication questions Follow-up/Referrals: Pedro Isaacs [Primary Care Provider] - Diet: Carb Consistent or DM2, Dialysis Renal and Heart Healthy Fluids: 1200ml (5 cups) Diet Comment: minced, moist diet Addtl Attending Provider Instructions: discharge to d/c back to [facility]/ [facility] discharge medications sent to [facility] [address] [facility] [place] [id number] furosemide 40 mg BID because of pleural effusions despite less than ideal renal function carvedilol 3.125 mg BID (this is decreased dose compare to home dose carvedilol prior to hospital admission and isosorbide mononitrate also discontinued on this hospital stay to avoid low blood pressure) pantoprazole 40 m daily (to prevent GI bleed, patient may continue Eliquis 5 mg BID at home but to avoid aspirin for now and to avoid all NSAIDs such as naproxen) discontinued trazodone to avoid excessive sedation patient's insulin requirements is much lower inpatient and only required sliding scale coverage. patient's scheduled insulin at home is to be stopped Hospital sliding scale with meals is based on Goal BSG Range: Low 140 mg/dL, High 180 mg/dL Correction Factor: 30 mg/dL/unit INS:CHO Ratio: 1unit per 10gms CHO consumed BSGs ACHS if eating, q6h if npo so will discharge on aspart 4 units with meals upcoming scheduled appointments 08/10/2019 11:40 AM Provider Lola Jean MD Department General Internal [facility] 08/20/2019 10:40 AM Provider Sabina Abel MD Department Nephrology, [facility] 09/25/2019 3:00 PM Provider Sabina Abel MD Department Nephrology, [facility] [employer] Provider Instructions: as per Dr. Abel nephrology discharge instructions "-weekly basic metabolic panel and hemoglobin x 2 weeks; with first weekly blood draw, will also get ferritin, transferrin saturation: Outpatient nephrology nurses will place these orders -Nephrology will refer to anemia clinic at hospital discharge" creatinine on 08/03/2019 is 1.92 Pending Studies at Discharge: No Studies:: Resuscitation Status: Conditional Code Other ACLS standard treatments/procedures: Yes Specify other ACLS standard treatments/procedures:: iv meds I have discussed code level wishes with patient/surrogate: Yes Chest compressions: Yes Invasive airway technique: No Artificial ventilation: No Cardiac defibrillation: Yes Stand-Alone Forms: My [facility] Skilled Items Patient informed of condition?: Yes DNR: No (conditional code status while inpatient) Discharge Level of Care: Skilled Communicable Disease: No Discharge Prognosis: Stable Lines: None Urinary Catheter: No Medications and DC Order Prescriptions: New furosemide 40 mg Tablet 40 mg PO BID17 30 Days Qty: 30 RF: 0 carvedilol 3.125 mg Tablet 3.125 mg PO BID 30 Days Qty: 60 RF: 0 pantoprazole 40 mg Tablet,Delayed Release (Dr/Ec) 40 mg PO DAILY 30 Days Qty: 30 RF: 0 acetaminophen 325 mg capsule 325 mg PO Q6H PRN (Reason: fever or pain) 4 Days Qty: 16 RF: 0 insulin aspart U-100 [Novolog Flexpen U-100 Insulin] 100 unit/mL (3 mL) Insulin Pen 4 unit SC ACHS 30 Days Qty: 1.2 RF: 0 Continued apixaban [Eliquis] 5 mg tablet 5 mg PO BID RF: 0 cholecalciferol (vitamin D3) 2,000 unit capsule 2,000 units PO QAM RF: 0 digoxin 125 mcg tablet 0.125 mg PO Q2D RF: 0 ferrous sulfate 325 mg (65 mg iron) tablet,delayed release (DR/EC) 325 mg PO BIDM RF: 0 insulin aspart U-100 [Novolog Flexpen U-100 Insulin] 100 unit/mL insulin pen 4 units SQ QDL RF: 0 sennosides-docusate sodium 8.6-50 mg tablet 1 tab PO BID RF: 0 amiodarone 200 mg tablet 200 mg PO QAM Qty: 90 RF: 3 levothyroxine 75 mcg Tablet 75 mcg PO QAM RF: 0 polyethylene glycol 3350 [Miralax] 17 gram Powder In Packet 17 g PO QAM RF: 0 gabapentin [Neurontin] 100 mg capsule 100 mg PO BID Qty: 0 RF: 0 Insta-Glucose Application 1 applic PO DIRECTED PRN (Reason: Hypoglycemia) RF: 0 bisacodyl [Dulcolax (bisacodyl)] 10 mg Suppository 10 mg MS DIRECTED PRN (Reason: Constipation) RF: 0 Enema 19-7 gram/118 mL Enema 118 ml MS DIRECTED PRN (Reason: Constipation) RF: 0 magnesium hydroxide [Milk Of Magnesia Concentrated] 2,400 mg/10 mL Suspension 10 ml PO DIRECTED PRN (Reason: Constipation) RF: 0 Lactinex 1 million cell Tablet,Chewable 1 tab PO TID RF: 0 Discontinued aspirin 81 mg tablet,chewable 81 mg PO QAM RF: 0 carvedilol [Coreg] 6.25 mg tablet 6.25 mg PO BID RF: 0 insulin asp prt-insulin aspart [Novolog Mix 70-30 U-100 Insuln] 100 unit/mL (70-30) solution 48 units SQ QAM RF: 0 insulin asp prt-insulin aspart [Novolog Mix 70-30 U-100 Insuln] 100 unit/mL (70-30) solution 35 units SQ QPM RF: 0 acetaminophen 500 mg Tablet 1,000 mg PO Q6H MDD 3000 GMS /DAY PRN (Reason: Pain) RF: 0 isosorbide mononitrate 30 mg Tablet Extended Release 24 Hr 30 mg PO QAM RF: 0 trazodone 50 mg Tablet 50 mg PO HS 30 Days Qty: 30 RF: 0 furosemide 20 mg Tablet 20 mg PO BID RF: 0 naproxen 500 mg Tablet 500 mg PO BID RF: 0 Discharge Orders: Discharge Order (Routine); Ordered 08/03/19 Ordered By: Kristopher Javed Admission Data Admit Date/Time: 07/24/19 22:31 Attending Provider: Kristopher Javed Admit Provider: Jean Carlos Pride Primary Care Provider: Pedro Isaacs Other Providers: Ferny, ; Jean Carlos Pride ; Christiana Lilly ; Josemanuel Prasad ; Chalo Nick ; Ced Gayle ; Giorgio Maloney ; Shubham Nguyen ; Bhanu Diaz Jr ; Venkatesh Morales ; Suly Garvin ; Ann Marie Browning ; Ricco Steven ; Ricco oCrdero ; Wilbert Zeng ; Dave Shepherd ; Angela Mark ; Esthela Diana ; Batsheva Jones ; Chen Acevedo ; Sharmila Ortiz ; Iveth Vargas ; Sloan Gresham ; Shira Johnson ; Jeffery Rahman ; Becky Ruiz ; Ced Marin ; Eleazar Hi ; Sandra Martinez ; Daria Gray ; Genevieve Perez ; Naila Palafox ; Ericka Joy ; Sabina Abel Other Interventions: Discharge Summary Assessment (RN) Last Done: 08/03/19 12:05
== END 2019-08-03 14:10 | DRG 291 ==
LOC: ED 15:24 → 1E 22:31 → SUATTDRO 22:31 → 1E 23:59 → 2N 07-27 10:40